=== PATIENT | female | born 1940 | race Caucasian/White ===

== ENCOUNTER → 2017-02-19 | Outpatient (CLI) | payer SELFPAY ==
[2017-02-19 13:52] LABS: EKG EKG PERFORMED
[2017-02-19 14:40] LABS: CH 33.8; HCT 42.5 % (34.0-46.0); HDW 2.84; HGB 15.9 gm/dL (11.4-16.0); Hyperchromasia Slight; MCH 33.4 pg (25.0-35.0); MCHC 37.4 g/dL (31.0-37.0); MCV 89.3 fL (80.0-100.0); Mean Platelet Volume 7.1; RBC 4.76 m/uL (3.80-5.40); RDW 12.9 % (11.5-15.5); WBC 11.1 k/uL (3.8-10.6)
[2017-02-19 14:46] LABS: Partial Thromboplastin Time 23.8 sec (22.0-30.0); Prothrombin Time 10.4 sec (9.0-12.0)
[2017-02-19 14:56] LABS: ALT 29 U/L (9-52); AST 19 U/L (14-36); Alkaline Phosphatase 97 U/L (38-126); Anion Gap 10 mmol/L; Blood Urea Nitrogen 18 mg/dL (7-17); Calcium 9.6 mg/dL (8.4-10.2); Carbon Dioxide 33 mmol/L (22-30); Chloride 98 mmol/L (98-107); Glucose 106 mg/dL (74-99); Non-African American GFR(MDRD) 51 (>60 ml/min/1.73 sqM); Potassium 3.3 mmol/L (3.5-5.1); Sodium 141 mmol/L (137-145); Total Bilirubin 0.8 mg/dL (0.2-1.3); Total Protein 6.7 g/dL (6.3-8.2)
== END | disposition home or self-care (01) ==
LOC: LABPAT 13:43
PROVIDERS: ATTEND Orthopaedic Surgery
DX: Z01.810 Encounter for preprocedural cardiovascular examination (principal); Z01.812 Encounter for preprocedural laboratory examination
CPT/HCPCS: 80053; 85027; 85610; 85730; 87070; 93005

== ENCOUNTER → 2017-02-24 | Outpatient (CLI) | payer SELFPAY ==
[2017-02-24 12:08] LABS: Appearance,Urine Clear (Clear); Bilirubin,Urine Negative (Negative); Glucose,Urine (UA) Negative (Negative); Ketones,Urine Negative (Negative); Leukocyte Esterase,Urine Negative (Negative); Nitrite,Urine Negative (Negative); PH, Urine 6.5 (5.0-8.0); Protein,Urine Negative (Negative); Specific Gravity,Urine 1.019 (1.001-1.035); UA Billing (MACRO vs. MICRO) CHEM
== END ==
LOC: LABPAT 11:47
PROVIDERS: ATTEND Orthopaedic Surgery
DX: Z01.812 Encounter for preprocedural laboratory examination (principal)
CPT/HCPCS: 81003

== ENCOUNTER 2017-03-09 05:42 | Inpatient (IN) | payer MEDICARE, OTHER ==
[2017-02-26 15:03] VITALS: BMI 31.3
[~2017-03-09 05:42] MED LIST: DEXAMETHASONE SOD PHOSPHATE 10 MG/ML 1 ML VIAL IV ONE; HYDROmorphone 1 MG/ML 1 ML SYRINGE IVP PRN; LACTATED RINGERS 1,000 ML IV SCH; ONDANSETRON 4 MG/2 ML VIAL IVP ONE; ceFAZolin 2 GM in SODIUM CHLORIDE 0.9% 100 ML IVPB ONE
[2017-03-09] MEDS ORDERED: LIDOCAINE 1% 20 ML VIAL (10MG/ML) FOR IV START INTRADERMA ONE (06:59)
[2017-03-09] MEDS ORDERED: fentaNYL (PF) 50 MCG/ML 2 ML AMP ONE (07:09)
[2017-03-09] MEDS ORDERED: MIDAZOLAM 2 MG/2 ML VIAL ONE (07:09)
[2017-03-09] MEDS ORDERED: PROPOFOL 10 MG/ML 20 ML VIAL IV ONE (07:09)
[2017-03-09] MEDS ORDERED: ceFAZolin 3,000 MG in SODIUM CHLORIDE 0.9% IRRIGATIO 3,000 ML IRRIGATION ONE (08:17)
[2017-03-09] MEDS ORDERED: LACTATED RINGERS 1,000 ML IV ONE (08:26)
[2017-03-09] MEDS ORDERED: hydrOXYzine PAMOATE 25 MG CAP PO PRN (09:13)
[2017-03-09] MEDS ORDERED: ONDANSETRON 4 MG/2 ML VIAL IVP PRN (09:13)
[2017-03-09] MEDS ORDERED: NA PHOS,M-B/NA PHOS,DI-BA 133 ML ENEMA RECTAL PRN (09:13)
[2017-03-09] MEDS ORDERED: HYDROmorphone 1 MG/ML 1 ML SYRINGE IVP PRN ×2 (09:13)
[2017-03-09] MEDS ORDERED: BISACODYL 10 MG SUPP RECTAL PRN (09:13)
[2017-03-09] MEDS ORDERED: NALOXONE 0.4 MG/ML 1 ML VIAL IV PRN (09:13)
[2017-03-09] MEDS ORDERED: ACETAMINOPHEN TAB 325 MG TAB PO PRN (09:13)
[2017-03-09] MEDS ORDERED: HYDROcodone/APAP 5-325MG 1 EACH TAB PO PRN (09:13)
[2017-03-09] MEDS ORDERED: MAGNESIUM HYDROXIDE 2,400 MG/10 ML CUP PO PRN (09:13)
--- NOTE | 2017-03-09 10:03 | XR ---
EXAMINATION TYPE: XR knee limited RT DATE OF EXAM: 03/09/2017 CLINICAL HISTORY: Right knee pain and arthritis status post total knee replacement. TECHNIQUE: Portable AP and crosstable lateral views of the right knee are obtained immediately posto peratively. COMPARISON: None FINDINGS: Metallic hardware from total right knee arthroplasty is seen and appears satisfactory in a lignment and position. There is evidence of recent surgery with diffuse subcutaneous gas and soft ti ssue swelling noted. Incidental note is made of some vascular calcification in the posterior soft tis bela. IMPRESSION: METALLIC HARDWARE FROM TOTAL RIGHT KNEE ARTHROPLASTY IS SATISFACTORY IN ALIGNMENT.
[2017-03-09] MEDS: LACTATED RINGERS 1,000 ML IV SCH ×2 (10:11→20:32)
[2017-03-09] MEDS: HYDROmorphone 1 MG/ML 1 ML SYRINGE IVP PRN ×2 (10:34→17:06)
[2017-03-09] MEDS ORDERED: IPRATROPIUM-ALBUTEROL 3 ML NEB INHALATION PRN (12:22)
[2017-03-09] MEDS: HYDROcodone/APAP 5-325MG 1 EACH TAB PO PRN (13:38)
[2017-03-09] MEDS: VERAPAMIL SR 120 MG TABLET.ER PO SCH ×2 (13:38→21:53)
[2017-03-09] MEDS: buPROPion SR 150 MG TABLET.ER PO SCH (13:39)
[2017-03-09] MEDS: GABAPENTIN 100 MG CAP PO SCH ×2 (13:39→21:53)
[2017-03-09] MEDS: IPRATROPIUM-ALBUTEROL 3 ML NEB INHALATION SCH ×3 (16:17→23:38)
[2017-03-09] MEDS: ceFAZolin 2 GM in SODIUM CHLORIDE 0.9% 100 ML IVPB SCH ×2 (17:06→23:53)
[2017-03-09] MEDS: NICOTINE 14MG/24HR PATCH TRANSDERM SCH (17:14)
[2017-03-09] MEDS ORDERED: ALBUTEROL NEBULIZED 2.5 MG/3 ML INHALATION PRN (17:52)
[2017-03-09] MEDS ORDERED: WARFARIN 5 MG TAB PO ONE (18:00)
--- NOTE | 2017-03-09 18:01 | P.CONS ---
History of Present Illness - Reason for Consult Consult date: 03/09/17 Medical management Requesting physician: Milton Pacheco - Chief Complaint Right knee surgery - History of Present Illness Consultation: This is a 76-year-old patient of Dr. Walter. Has undergone a right total knee arthroplasty. Some pain is present. Chronic stable medical conditions include hypertension, hyperlipidemia, obstructive sleep apnea uses CPAP machine, and COPD. No nausea vomiting. No chest pain or shortness of breath currently. GEN.: None EYES: None HEENT: None NECK: None RESPIRATORY: Occasional wheezing CARDIOVASCULAR: None GASTROINTESTINAL: Occasional urinary stress incontinence GENITOURINARY: None MUSCULOSKELETAL: Pain in the joints LYMPHATICS: None HEMATOLOGICAL: None PSYCHIATRY: None NEUROLOGICAL: None Past medical history: Hypertension, hyperlipidemia, osteoarthritis, obstructive sleep apnea, breast cancer, COPD, didn't urinary stress incontinence Past surgical history: Left breast lumpectomy including breast cancer treated with chemoradiation, had bilateral mastectomy, a distal surgery for twisted bowel at age 3 months Social history: Smokes a pack a day for over 39 years, alcohol none, lives by himself Family history: 3 sisters had breast cancer, one sister had ovarian cancer VITAL SIGNS: Afebrile, 52, 16, 154/76, 93% GENERAL: Average built BMI 31.3, sitting up, comfortable. EYES: Pupils equal. Conjunctiva normal. HEENT: External appearance of nose and ears normal, oral cavity grossly normal. NECK: JVD not raised; masses not palpable. HEART: First and second heart sounds are normal; no edema. LUNGS: Respiratory rate increased; decreased breath sounds, expiratory wheezing. ABDOMEN: Soft, nontender, liver spleen not palpable, no masses palpable. LYMPHATICS: No lymph nodes palpable in the axilla and neck. PSYCH: Alert and oriented x3; mood and affect normal. NEUROLOGICAL: Cranial nerves grossly intact; no facial asymmetry, power and sensation grossly intact. MUSCULAR skeletal: The same of the right knee, evidence of OA in the hands Investigations Potassium 3.4 Assessment: -Right total knee arthroplasty -Hyperlipidemia -Hyperlipidemia -Essential hypertension -Primary osteoarthritis multiple joints -Obstructive sleep apnea uses CPAP machine -History of breast cancer -Chronic urinary stress incontinence -COPD in a current smoker -Chronic nicotine dependence patient is single smoker Plan: Home medications be resumed. We'll begin a nicotine patch. Patient oriented bronchitis. Patient advised against smoking. Care was discussed with the patient. Negative Dr. Pacheco Past Medical History Past Medical History: Cancer, Hyperlipidemia, Hypertension, Osteoarthritis (OA) , Sleep Apnea/CPAP/BIPAP Additional Past Medical History / Comment(s): breast ca x2 left breast, first time approx 1996, had chemo radiation, current freddie mastectomy no implant on left History of Any Multi-Drug Resistant Organisms: None Reported Past Surgical History: Breast Surgery Additional Past Surgical History / Comment(s): left breast lumpectomy 1996, had chemo and radiation, repeat breast ca left, had freddie mastectomy with reconstruction, had infection left breast and now does not have reconstruction on left. 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" Past Anesthesia/Blood Transfusion Reactions: No Reported Reaction Past Psychological History: Depression Smoking Status: Current every day smoker Past Alcohol Use History: None Reported Additional Past Alcohol Use History / Comment(s): smokes 1ppd fromage 37 (1977) Past Drug Use History: None Reported - Past Family History Sister(s) Family Medical History: Cancer Additional Family Medical History / Comment(s): 3 sisters had breast ca, one sister had ovarian ca Medications and Allergies Home Medications Medication Instructions Recorded Confirmed Type Atenolol/Chlorthalidone 1 tab PO HS 02/26/17 03/09/17 History [Atenolol-Chlorthalidone 50-25] Atorvastatin [Lipitor] 20 mg PO HS 02/26/17 03/09/17 History Gabapentin [Neurontin] 100 mg PO TID 02/26/17 03/09/17 History Glucosam/Jamil-Msm1/C/Fran/Bosw 1 tab PO HS 02/26/17 03/09/17 History [Glucosamine-Chondroitin Tablet] Albuterol Inhaler [Ventolin Hfa 2 puff INHALATION RT-Q6H PRN 03/09/17 03/09/17 History Inhaler] Albuterol Nebulized [Ventolin 2.5 mg INHALATION RT-BID PRN 03/09/17 03/09/17 History Nebulized] Cholecalciferol [Vitamin D3] 3,000 unit PO HS 03/09/17 03/09/17 History Fluticasone/Salmeterol [Advair 1 inhalation PO RT-HS 03/09/17 03/09/17 History 250-50 Diskus] Multivitamins, Thera [Multivitamin 1 tab PO HS 03/09/17 03/09/17 History (formulary)] Tiotropium [place] [Spiriva] 1 cap INHALATION RT-HS 03/09/17 03/09/17 History Verapamil HCl 120 mg PO BID 03/09/17 03/09/17 History Vitamin B Complex 1 cap PO HS 03/09/17 03/09/17 History buPROPion SR [Wellbutrin Sr] 150 mg PO DAILY 03/09/17 03/09/17 History Allergies Allergy/AdvReac Type Severity Reaction Status Date / Time No Known Allergies Allergy Verified 03/09/17 06:28 Results CBC & Chem 7: 03/09/17 06:45 Labs: Abnormal Lab Results - Last 24 Hours (Table) 03/09/17 Range/Units 06:45 Potassium 3.4 L (3.5-5.1) mmol/L
--- NOTE | 2017-03-09 19:14 | XR ---
EXAMINATION TYPE: XR chest 2V DATE OF EXAM: 03/09/2017 COMPARISON: 07/08/2009 HISTORY: Current rehabilitation. Chest pain. TECHNIQUE: Frontal and lateral views of the chest are obtained. FINDINGS: There is no focal air space opacity, pleural effusion, or pneumothorax seen. The cardiac silhouette size is mildly enlarged. The osseous structures are intact. IMPRESSION: No acute cardiopulmonary process.
[2017-03-09] MEDS: SYMBICORT 80-4.5 MCG INHALER INHALATION SCH (19:58)
[2017-03-09] MEDS ORDERED: TIOTROPIUM 18 MCG/PUFF INHALER INHALATION SCH (20:00)
[2017-03-09] MEDS ORDERED: TEMAZEPAM 15 MG CAP PO PRN (21:00)
[2017-03-09] MEDS: ATENOLOL 50 MG TAB PO SCH (21:52)
[2017-03-09] MEDS: CHOLECALCIFEROL 1,000 UNIT TAB PO SCH (21:52)
[2017-03-09] MEDS: CHLORTHALIDONE 25 MG TAB PO SCH (21:52)
[2017-03-09] MEDS: ATORVASTATIN 20 MG TAB PO SCH (21:52)
[2017-03-09] MEDS: SENNOSIDES-DOCUSATE SODIUM 1 EACH TAB PO SCH (21:53)
[2017-03-10] MEDS: IPRATROPIUM-ALBUTEROL 3 ML NEB INHALATION SCH ×6 (01:43→23:48)
[2017-03-10] MEDS: LACTATED RINGERS 1,000 ML IV SCH ×2 (05:55→18:55)
[2017-03-10] MEDS: HYDROcodone/APAP 5-325MG 1 EACH TAB PO PRN ×2 (05:58→18:50)
[2017-03-10 07:33] LABS: INR 1.7 (<1.2); Prothrombin Time 16.4 sec (9.0-12.0)
[2017-03-10] MEDS ORDERED: HYDROcodone/APAP 7.5-325MG 1 EACH TAB PO PRN (07:43)
[2017-03-10 07:44] LABS: Basophils % (A) 0 %; CH 33.7; CHCM 37.9; Eosinophils % (A) 0 %; HCT 39.8 % (34.0-46.0); HDW 2.88; HGB 14.5 gm/dL (11.4-16.0); Hyperchromasia Slight; Luc # (Auto) 0.13; Luc % (Auto) 1; Lymphocytes # (A) 1.8 k/uL (1.0-4.8); Lymphocytes % (A) 12 %; MCH 32.5 pg (25.0-35.0); MCHC 36.5 g/dL (31.0-37.0); MCV 89.2 fL (80.0-100.0); Mean Platelet Volume 7.3; Monocytes # (A) 1.3 k/uL (0-1.0); Monocytes % (A) 8 %; Neutrophils # (A) 11.9 k/uL (1.3-7.7); Neutrophils % (A) 78 %; RBC 4.46 m/uL (3.80-5.40); RDW 12.8 % (11.5-15.5); WBC 15.2 k/uL (3.8-10.6); WBC (Perox) 15.67
--- NOTE | 2017-03-10 08:13 | P.PN ---
Subjective Principal diagnosis: Primary osteoarthritis right knee. Status post Total right knee arthroplasty This is a 76-year-old female who is status post total right knee arthroplasty. She is stable from an orthopedic standpoint. She is having some pain control issues this morning. Objective - Vital Signs Vital signs: Vital Signs Temp 97.6 F 03/10/17 02:04 Pulse 81 03/10/17 02:04 Resp 16 03/10/17 02:04 BP 129/87 03/10/17 02:04 Pulse Ox 92 L 03/10/17 02:04 Intake & Output 03/09/17 03/10/17 03/10/17 18:59 06:59 18:59 Intake Total 2390 1900 Output Total 150 2525 Balance 2240 -625 Intake: IV 1550 Intake, IV Titration 1100 Amount Lactated Ringers 1,000 ml 1100 @ 100 mls/hr IV .Q10H CABRERA Rx#:[id number] Oral 840 800 Output: Urine 100 2525 Estimated Blood Loss 50 Other: Voiding Method Indwelling Catheter Indwelling Catheter - Exam Role female in no acute distress. She is alert and oriented 3. Exam of the right knee reveals that her dressing is clean, dry and intact. She has full foot and ankle motion without difficulty or pain. Neurovascular status to the lower extremity is intact. - Labs CBC & Chem 7: 03/10/17 06:37 03/09/17 06:45 Labs: Abnormal Lab Results - Last 24 Hours (Table) 03/10/17 03/10/17 Range/Units 06:37 06:37 WBC 15.2 H (3.8-10.6) k/uL Neutrophils # 11.9 H (1.3-7.7) k/uL Monocytes # 1.3 H (0-1.0) k/uL PT 16.4 H (9.0-12.0) sec INR 1.7 H (<1.2) Assessment and Plan (1) Primary localized osteoarthritis of right knee Status: Acute (2) Status post total right knee replacement Status: Acute Plan: The clinical findings are discussed with the patient. She is to continue with physical therapy and CPM as directed. We're planning discharge to inpatient rehab.
[2017-03-10] MEDS: NICOTINE 14MG/24HR PATCH TRANSDERM SCH (09:02)
[2017-03-10] MEDS: VERAPAMIL SR 120 MG TABLET.ER PO SCH ×2 (09:02→20:21)
[2017-03-10] MEDS: GABAPENTIN 100 MG CAP PO SCH ×3 (09:05→20:21)
[2017-03-10] MEDS: MELOXICAM 7.5 MG TAB PO SCH (09:05)
[2017-03-10] MEDS: buPROPion SR 150 MG TABLET.ER PO SCH (09:06)
[2017-03-10] MEDS ORDERED: WARFARIN 5 MG TAB PO ONE (18:00)
[2017-03-10] MEDS: SYMBICORT 80-4.5 MCG INHALER INHALATION SCH (20:14)
[2017-03-10] MEDS: SENNOSIDES-DOCUSATE SODIUM 1 EACH TAB PO SCH (20:21)
[2017-03-10] MEDS: ATORVASTATIN 20 MG TAB PO SCH (20:21)
[2017-03-10] MEDS: CHOLECALCIFEROL 1,000 UNIT TAB PO SCH (20:21)
[2017-03-10] MEDS: ATENOLOL 50 MG TAB PO SCH (20:21)
[2017-03-10] MEDS: CHLORTHALIDONE 25 MG TAB PO SCH (20:21)
--- NOTE | 2017-03-11 01:15 | P.PN ---
<Saundra Sahu - Last Filed: 03/11/17 01:06> Progress Note - Text DATE OF SERVICE: 03/10/2017 PRESENTING COMPLAINT: Right knee pain INTERVAL HISTORY: 76-year-old patient status post right total knee arthroplasty. 03/10/2017: Has some pain today although patient says it's better today. Pain medications appear to working well. Agreeable to work with physical therapy. Tolerating her diet. No BM since day of admission REVIEW OF SYSTEMS: Done for constitutional ,cardiovascular, GI, pulmonary with relevant findings as above. CURRENT MEDICATIONS [place], DuoNeb, Tenormin, Lipitor, Wellbutrin, [place], Neurontin, temazepam. PHYSICAL EXAM VITAL SIGNS: Temperature 98.3, pulse is 55, respiratory rate 17, blood pressure 115/60, oxygen saturation 92% on room air. GENERAL APPEARANCE: . Lying in bed, not in distress. EYES: Pupils equal. Conjunctiva normal. NECK: JVD not raised. Mass not palpable. RESPIRATORY: Respiratory effort normal. Lungs clear to auscultation. CARDIOVASCULAR: First and second sounds normal. No edema. ABDOMEN: Soft. Liver and spleen not palpable. No tenderness. No mass palpable. PSYCHIATRY: Alert and oriented x3. Mood and affect normal. NEUROLOGICAL: Cranial nerves grossly intact. No facial asymmetry. Power and sensation grossly intact MUSCULOSKELETAL: Right knee dressing intact some swelling noted to the extremity. Plantar and dorsiflexion intact on the right foot INVESTIGATIONS: White blood cell count 15.2 PT 16.4, INR 1.7. Potassium 3.4. ASSESSMENT: -Right total knee arthroplasty -Leukocytosis as acute phase reactant secondary to surgery. -Hyperlipidemia -Hyperlipidemia -Essential hypertension -Primary osteoarthritis multiple joints -Obstructive sleep apnea uses CPAP machine -History of breast cancer -Chronic urinary stress incontinence -COPD in a current smoker -Chronic nicotine dependence patient is single smoker PLAN: Continue medication and treatment plan. We'll add stool softeners to ensure patient has a BM prior to discharge. Plan of care discussed with the patient and family at length And they are in agreement. We'll continue to monitor closely SHOE REPAIR COBBLER statement: Patient was seen and examined by nurse practitioner Saundra Sahu and all elements of the case discussed with attending Dr. Rojas <Junaid Rojas - Last Filed: 03/14/17 13:32> Progress Note - Text Attending note. Date of service-03/10/2017 This patient was seen and examined by me . I reviewed the note of my nurse practitioner, Ms. Sahu. Discussed with her, additional findings as below. Doing better. Pain control. Breathing stable. No chest pain. Did tolerate his diet. On examination: Lungs-clear to auscultation, cardiovascular first seconds are normal. Surgical site clean as per surgery Investigations: White count 15.2 Assessment and plan: Right total knee arthroplasty./Leukocytosis reactive to surgery. No evidence of infection. Care discussed with the patient
[2017-03-11] MEDS ORDERED: LACTULOSE 20 GM/30 ML CUP PO ONE (01:36)
[2017-03-11] MEDS: IPRATROPIUM-ALBUTEROL 3 ML NEB INHALATION SCH ×5 (03:41→20:12)
[2017-03-11] MEDS: LACTATED RINGERS 1,000 ML IV SCH ×3 (04:17→21:13)
[2017-03-11] MEDS: HYDROcodone/APAP 7.5-325MG 1 EACH TAB PO PRN ×3 (04:27→16:48)
[2017-03-11 07:19] LABS: INR 2.4 (<1.2); Prothrombin Time 22.9 sec (9.0-12.0)
--- NOTE | 2017-03-11 08:46 | P.PN ---
Subjective Principal diagnosis: Primary osteoarthritis right knee. Status post Total right knee arthroplasty This is a 76-year-old female who is status post total right knee arthroplasty. She is stable from an orthopedic standpoint. Her pain is better controlled today. Objective - Vital Signs Vital signs: Vital Signs Temp 97.8 F 03/11/17 07:42 Pulse 79 03/11/17 07:42 Resp 17 03/11/17 07:42 BP 119/66 03/11/17 07:42 Pulse Ox 94 L 03/11/17 07:42 Intake & Output 03/10/17 03/11/17 03/11/17 18:59 06:59 18:59 Intake Total 720 500 Output Total 300 875 Balance 420 -375 Weight 90.718 kg Intake: Oral 720 500 Output: Urine 300 875 Uretheral ([place]) 300 Other: Voiding Method Indwelling Catheter # Voids 3 1 - Exam Role female in no acute distress. She is alert and oriented 3. Exam of the right knee reveals that her dressing is clean, dry and intact. Incision looks good. There is no erythema or ecchymosis. There is no active drainage. Dermabond glue is intact. She has full foot and ankle motion without difficulty or pain. Neurovascular status to the lower extremity is intact. - Labs CBC & Chem 7: 03/10/17 06:37 03/09/17 06:45 Labs: Abnormal Lab Results - Last 24 Hours (Table) 03/11/17 Range/Units 06:40 PT 22.9 H (9.0-12.0) sec INR 2.4 H (<1.2) Assessment and Plan (1) Primary localized osteoarthritis of right knee Status: Acute (2) Status post total right knee replacement Status: Acute Plan: The clinical findings are discussed with the patient. She is to continue with physical therapy and CPM as directed. We're planning discharge to inpatient rehab tomorrow.
[2017-03-11] MEDS: NICOTINE 14MG/24HR PATCH TRANSDERM SCH (08:49)
[2017-03-11] MEDS: MELOXICAM 7.5 MG TAB PO SCH (08:50)
[2017-03-11] MEDS: GABAPENTIN 100 MG CAP PO SCH ×3 (08:50→21:06)
[2017-03-11] MEDS: VERAPAMIL SR 120 MG TABLET.ER PO SCH ×2 (08:50→21:05)
[2017-03-11] MEDS: buPROPion SR 150 MG TABLET.ER PO SCH (08:50)
[2017-03-11 14:09] VITALS: RESP 16
[2017-03-11] MEDS ORDERED: WARFARIN 2.5 MG TAB PO ONE (18:00)
[2017-03-11] MEDS: SYMBICORT 80-4.5 MCG INHALER INHALATION SCH (20:24)
[2017-03-11] MEDS: ATORVASTATIN 20 MG TAB PO SCH (21:04)
[2017-03-11] MEDS: CHLORTHALIDONE 25 MG TAB PO SCH (21:05)
[2017-03-11] MEDS: CHOLECALCIFEROL 1,000 UNIT TAB PO SCH (21:05)
[2017-03-11] MEDS: SENNOSIDES-DOCUSATE SODIUM 1 EACH TAB PO SCH (21:09)
[2017-03-11] MEDS: ATENOLOL 50 MG TAB PO SCH (21:09)
[2017-03-11] MEDS: HYDROcodone/APAP 5-325MG 1 EACH TAB PO PRN (22:12)
[2017-03-12] MEDS: IPRATROPIUM-ALBUTEROL 3 ML NEB INHALATION SCH ×4 (00:57→11:49)
[2017-03-12] MEDS: HYDROcodone/APAP 5-325MG 1 EACH TAB PO PRN (04:48)
[2017-03-12 07:10] LABS: INR 3.1 (<1.2); Prothrombin Time 29.9 sec (9.0-12.0)
[2017-03-12 07:20] LABS: Basophils # (A) 0.1 k/uL (0-0.2); Basophils % (A) 1 %; CH 33.9; CHCM 38.4; Eosinophils # (A) 0.5 k/uL (0-0.7); Eosinophils % (A) 5 %; HGB 13.5 gm/dL (11.4-16.0); Hyperchromasia Slight; Luc # (Auto) 0.18; Luc % (Auto) 2; Lymphocytes # (A) 2.3 k/uL (1.0-4.8); Lymphocytes % (A) 23 %; MCH 32.4 pg (25.0-35.0); MCHC 36.5 g/dL (31.0-37.0); MCV 88.7 fL (80.0-100.0); Mean Platelet Volume 7.3; Monocytes # (A) 0.9 k/uL (0-1.0); Monocytes % (A) 9 %; Neutrophils # (A) 6.4 k/uL (1.3-7.7); Neutrophils % (A) 62 %; RBC 4.17 m/uL (3.80-5.40); WBC 10.3 k/uL (3.8-10.6); WBC (Perox) 10.76
--- NOTE | 2017-03-12 07:57 | PN ---
DATE OF SERVICE: 03/11/2017 PRESENTING COMPLAINT: Right knee surgery. INTERVAL HISTORY: Patient is status post right knee surgery, doing well. Pain is controlled. No nausea, vomiting. No chest pain. Did tolerate a diet. Did well with physical therapy. Review of systems done for constitutional, cardiovascular, GI, pulmonary; relevant findings as above. Current medications are reviewed. On examination, temperature 97.8, pulse 79, respirations 17, blood pressure 119/ 66, pulse ox 94% on 3-L. GENERAL APPEARANCE: Sitting up, comfortable. EYES: Pupils equal, conjunctivae normal. NECK: JVD not raised. Mass not palpable. RESPIRATORY: Effort normal. LUNGS: Clear. CARDIOVASCULAR: First and second sounds are normal. No edema. ABDOMEN: Soft, nontender. Liver and spleen not palpable. PSYCHIATRIC: Alert, oriented x3. Mood and affect normal. INVESTIGATIONS: White count 15.2, hemoglobin 14.5. ASSESSMENT: 1. Right total knee arthroplasty. 2. Hyperlipidemia. 3. Essential hypertension. 4. Primary osteoarthritis of multiple joints. 5. Obstructive sleep apnea uses CPAP machine. 6. History of breast cancer. 7. Chronic urinary stress incontinence. 8. Chronic obstructive pulmonary disease in a current smoker. 9. Chronic nicotine dependence. Patient is a smoker. PLAN: Care was discussed with the patient. Patient will get enema as she has not had bowel movement for a good 4 or 5 days. MTDD
--- NOTE | 2017-03-12 07:59 | P.DS ---
Providers Date of admission: 03/09/17 05:42 Expected date of discharge: 03/12/17 Attending physician: Milton Pacheco Consults: 03/09/17 09:13 Consult Physician Routine Consulting Provider: Junaid Rojas Consult Reason/Comments: medical management Do you want consulting provider notified?: Yes Primary care physician: Viktor Walter - Discharge Diagnosis(es) (1) Primary localized osteoarthritis of right knee Current Visit: Yes Status: Acute (2) Status post total right knee replacement Current Visit: Yes Status: Acute Hospital Course: This is a 76-year-old female with known history of degenerative arthritis of the right knee. The patient presents for evaluation. After discussion and consideration patient elects to proceed with total knee arthroplasty. The patient is seen preoperatively by Dr. Pacheco and cleared for surgery. Patient is admitted to [facility] on 03/09/2017 for total knee arthroplasty. The procedures performed without complication or sequelae. The patient is doing well postoperatively. Labs and vital signs are stable on day of discharge. On day of discharge patient's knee incision is healing well. There is minimal erythema. There is no drainage noted at this time. There is minimal soft tissue swelling to the knee. Patient has full foot and ankle motion without difficulty or pain. Neurovascular status to the right lower extremity is intact. Patient is discharged to rehab in good condition. Please see med rec for accurate list of home medications. Plan - Discharge Summary New Discharge Prescriptions: New Aspirin 325 mg PO BID #60 tab HYDROcodone/APAP 7.5-325MG [[place] 7.5-325] 1 - 2 tab PO Q4-6H PRN #90 tab PRN Reason: Pain Sennosides-Docusate Sodium [Senokot-S] 1 tab PO BID #60 tablet Warfarin [Coumadin] 2.5 mg PO Q2D #1 tab No Action Atorvastatin [Lipitor] 20 mg PO HS Glucosam/Jamil-Msm1/C/Fran/Bosw [Glucosamine-Chondroitin Tablet] 1 tab PO HS Gabapentin [Neurontin] 100 mg PO TID Atenolol/Chlorthalidone [Atenolol-Chlorthalidone 50-25] 1 tab PO HS buPROPion SR [Wellbutrin Sr] 150 mg PO DAILY Vitamin B Complex 1 cap PO HS Fluticasone/Salmeterol [Advair 250-50 Diskus] 1 inhalation PO RT-HS Albuterol Inhaler [Ventolin Hfa Inhaler] 2 puff INHALATION RT-Q6H PRN PRN Reason: Shortness Of Breath Tiotropium [place] [Spiriva] 1 cap INHALATION RT-HS Multivitamins, Thera [Multivitamin (formulary)] 1 tab PO HS Cholecalciferol [Vitamin D3] 3,000 unit PO HS Verapamil HCl 120 mg PO BID Albuterol Nebulized [Ventolin Nebulized] 2.5 mg INHALATION RT-BID PRN PRN Reason: Shortness Of Breath Discharge Medication List Atenolol/Chlorthalidone [Atenolol-Chlorthalidone 50-25] 1 tab PO HS 02/26/17 [ History] Atorvastatin [Lipitor] 20 mg PO HS 02/26/17 [History] Gabapentin [Neurontin] 100 mg PO TID 02/26/17 [History] Glucosam/Jamil-Msm1/C/Fran/Bosw [Glucosamine-Chondroitin Tablet] 1 tab PO HS [History] Albuterol Inhaler [Ventolin Hfa Inhaler] 2 puff INHALATION RT-Q6H PRN 03/09/17 [ History] Albuterol Nebulized [Ventolin Nebulized] 2.5 mg INHALATION RT-BID PRN 03/09/17 [ History] Cholecalciferol [Vitamin D3] 3,000 unit PO HS 03/09/17 [History] Fluticasone/Salmeterol [Advair 250-50 Diskus] 1 inhalation PO RT-HS 03/09/17 [ History] Multivitamins, Thera [Multivitamin (formulary)] 1 tab PO HS 03/09/17 [History] Tiotropium [place] [Spiriva] 1 cap INHALATION RT-HS 03/09/17 [History] Verapamil HCl 120 mg PO BID 03/09/17 [History] Vitamin B Complex 1 cap PO HS 03/09/17 [History] buPROPion SR [Wellbutrin Sr] 150 mg PO DAILY 03/09/17 [History] Aspirin 325 mg PO BID #60 tab 03/11/17 [Rx] HYDROcodone/APAP 7.5-325MG [[place] 7.5-325] 1 - 2 tab PO Q4-6H PRN #90 tab [Rx] Sennosides-Docusate Sodium [Senokot-S] 1 tab PO BID #60 tablet 03/11/17 [Rx] Warfarin [Coumadin] 2.5 mg PO Q2D #1 tab 03/11/17 [Rx] Follow up Appointment(s)/Referral(s): Milton Pacheco DO [Doctor of Osteopathic Medicine] - 2 Weeks Ambulatory/Diagnostic Orders: Continuous Passive Motion (CPM) Machine [DME.AMB1] Time Frame: 3 Weeks, Facility : [facility], Location: Case Management Activity/Diet/Wound Care/Special Instructions: A bear weight as tolerated with walker. May shower if no drainage from incision. CPM 5-6 hours daily. Discharge Disposition: TRANSFER TO SNF/ECF
[2017-03-12 08:13] VITALS: BP 112/69; PULSE 67; TEMP 98.1
[2017-03-12] MEDS: GABAPENTIN 100 MG CAP PO SCH (08:13)
[2017-03-12] MEDS: VERAPAMIL SR 120 MG TABLET.ER PO SCH (08:13)
[2017-03-12] MEDS: NICOTINE 14MG/24HR PATCH TRANSDERM SCH (08:14)
[2017-03-12] MEDS: MELOXICAM 7.5 MG TAB PO SCH (08:14)
[2017-03-12] MEDS: buPROPion SR 150 MG TABLET.ER PO SCH (08:14)
[2017-03-12] MEDS: LACTATED RINGERS 1,000 ML IV SCH (10:48)
--- NOTE | 2017-03-14 08:27 | PN ---
DATE OF SERVICE: 03/12/17 PRESENTING COMPLAINT: Right knee surgery. INTERVAL HISTORY: This is patient seen by me yesterday on 03/12/17. Doing well. Pain is controlled. No nausea or vomiting. Looking to go home. Review of systems: Done for constitutional, cardiovascular, GI, pulmonary, relevant findings as above. Current medications are reviewed. On examination, temperature 98.1, pulse 67, respiratory rate 14. Blood pressure 112/69. Pulse ox 94% on room air. General appearance sitting up, comfortable. Eyes: Pupils equal. Conjunctivae normal. Neck: JVD not raised. Mass not palpable. Respiratory effort normal. Lungs are clear. Cardiovascular: First and second sounds normal. No edema. Abdomen soft, nontender. Liver and spleen not palpable. Psychiatry: Alert and oriented times three. Mood and affect normal. Investigations: White count 10.3, hemoglobin 13.5. ASSESSMENT: 1. Right total knee arthroplasty. 2. Hyperlipidemia. 3. Essential hypertension. 4. Primary osteoarthritis of multiple joints. 5. Obstructive sleep apnea, uses CPAP machine. 6. History of breast cancer. 7. Chronic urinary stress incontinence 8. Chronic obstructive pulmonary disease in a current smoker. 9. Chronic nicotine dependence. The patient is a smoker. PLAN: Continue current medications and treatment plan. The patient feeling good. MTDD
--- NOTE | 2017-03-15 18:49 | OP ---
DATE OF SERVICE: 03/09/2017 SURGEON: Milton Pacheco Do MAGAZINE GRINDER LOADER: ASHLEY KWOK PA-C PREOPERATIVE DIAGNOSIS: Degenerative joint disease right knee. POSTOPERATIVE DIAGNOSIS: Degenerative joint disease right knee. PROCEDURE PERFORMED: Right total knee replacement arthroplasty utilizing Gay Persona Press fit component. DESCRIPTION OF PROCEDURE: The patient was taken to the operative suite and placed in supine position. Spinal anesthesia was performed by the department of anesthesiology. Betadine prep was performed from the mid calf. Sterile drapes were applied in the usual manner. A medial parapatellar incision was developed and further sharp dissection through the subcutaneous tissues were noted. Medial retinaculum was incised. The patella was everted and dislocated laterally. The knee was brought in flexion and held in a leg lima. The intramedullary cutting guide and jig was utilized for appropriate cuts in preparation for size 7 femoral component. The size 7 component was selected and appropriate cuts of the femur were developed. The provisionary component was size 7 component was impacted into position. Alignment and stability are noted. Excellent alignment of bone component interface noted. The tibial cutting guide and jig was brought into position and the wafer cut was performed. Wafer was removed and medial and lateral menisci were excised. A size 4 trabecular tray was selected. The tray was marked for position, held and appropriate peg holes were drilled in preparation for the tibial tray. The patella was shaped with a shelving planer. The size 32 mm patellar component was selected in preparation for all final components. The Pulsavac antibiotic solution was utilized in preparing the bone for the final component. Final size 4 trabecular metal three hole peg was placed in predrilled holes and impacted. The final size 7 right femoral component was impacted into position. The final patellar component was placed in peg holes and impacted. The final size 12 mm polyethylene insert was inserted and locked into the tibial tray and locked into position. With the knee in flexion position and pneumatic tourniquet deflated. The knee was irrigated with Pulsavac antibiotic solution. A superficial bleeding was controlled with electrocautery. The retinaculum was approximated with three Vicryl suture in a horizontal mattress fashion. A #2 Quill suture was used in reinforcing medial retinaculum. 2-0 Vicryl suture was utilized for closure of the subcutaneous tissue. 3-0 Quill Vicryl suture was utilized for soft tissue closure. Dermabond was used to seal the wound. Betadine and sterile pressure dressing was applied. The tourniquet was deflated. The patient was transferred to the recovery room in satisfactory postop condition. GROSS PATHOLOGY: There was severe tricompartmental degenerative joint disease of the right knee. NHI
== END 2017-03-12 15:52 | DRG 470 ==
LOC: 2ORMAIN 05:42 → 3SUR 09:07
PROVIDERS: ADMIT Orthopaedic Surgery; ATTEND Orthopaedic Surgery
PROC: 0SRC0JA Replacement of Right Knee Joint with Synthetic Substitute, Uncemented, Open Approach (ICD-10-PCS; principal; 2017-03-09 07:00)
DX: M17.11 Unilateral primary osteoarthritis, right knee (principal); J44.9 Chronic obstructive pulmonary disease, unspecified; I10 Essential (primary) hypertension; E78.5 Hyperlipidemia, unspecified; D72.829 Elevated white blood cell count, unspecified; F17.210 Nicotine dependence, cigarettes, uncomplicated; G47.33 Obstructive sleep apnea (adult) (pediatric); N39.3 Stress incontinence (female) (male); F32.9 Major depressive disorder, single episode, unspecified; I73.9 Peripheral vascular disease, unspecified; M21.161 Varus deformity, not elsewhere classified, right knee; Z79.899 Other long term (current) drug therapy; Z85.3 Personal history of malignant neoplasm of breast; Z82.49 Family history of ischemic heart disease and other diseases of the circulatory system
CPT/HCPCS: 71020; 84132; 85025; 85610; 88305; 88311; 94640; 94760

== ENCOUNTER 2018-11-11 10:36 | Inpatient (IN) | payer MEDICARE, OTHER ==
[~2018-11-11 10:36] MED LIST changes: -DEXAMETHASONE SOD PHOSPHATE 10 MG/ML 1 ML VIAL IV ONE; -HYDROmorphone 1 MG/ML 1 ML SYRINGE IVP PRN; -LACTATED RINGERS 1,000 ML IV SCH; +MIDAZOLAM (PF) 2 MG/2 ML VIAL IV PRN; -ONDANSETRON 4 MG/2 ML VIAL IVP ONE; +Pre Op ABX Message 1 EACH MISC MISCELLANE ONE; -ceFAZolin 2 GM in SODIUM CHLORIDE 0.9% 100 ML IVPB ONE
[2018-11-11] MEDS: LACTATED RINGERS 1,000 ML IV SCH ×5 (11:03→22:35)
[2018-11-11] MEDS ORDERED: LIDOCAINE 1% 20 ML VIAL (10MG/ML) FOR IV START INTRADERMA ONE (11:03)
[2018-11-11] MEDS: DEXAMETHASONE SOD PHOSPHATE 10 MG/ML 1 ML VIAL IV ONE ×2 (11:06→16:02)
[2018-11-11] MEDS: ONDANSETRON 4 MG/2 ML VIAL IVP ONE ×2 (11:06→16:02)
[2018-11-11] MEDS ORDERED: MIDAZOLAM 2 MG/2 ML VIAL IVP ONE (11:44)
[2018-11-11] MEDS ORDERED: fentaNYL (PF) 50 MCG/ML 2 ML AMP IVP ONE (11:44)
[2018-11-11] MEDS ORDERED: PROPOFOL 10 MG/ML 20 ML VIAL IV ONE (12:21)
[2018-11-11] MEDS ORDERED: LABETALOL 5 MG/ML VIAL MDV ONE (12:21)
[2018-11-11] MEDS ORDERED: MIDAZOLAM 2 MG/2 ML VIAL ONE (12:21)
[2018-11-11] MEDS ORDERED: ROCURONIUM BROMIDE 10 MG/ML 10 ML VIAL IV ONE (12:21)
[2018-11-11] MEDS ORDERED: hydrALAZINE HCL 20 MG/ML 1 ML VIAL ONE (12:21)
[2018-11-11] MEDS ORDERED: GLYCOPYRROLATE 0.2 MG/ML 2 ML VIAL ONE (12:21)
[2018-11-11] MEDS ORDERED: LIDOCAINE 1% INJ 10MG/ML (20 ML MDV) ONE (12:21)
[2018-11-11] MEDS ORDERED: NEOSTIGMINE 1 MG/ML 10 ML VIAL ONE (12:21)
[2018-11-11] MEDS ORDERED: KETAMINE 10 MG/ML 20 ML VIAL ONE (12:21)
[2018-11-11] MEDS ORDERED: fentaNYL (PF) 50 MCG/ML 2 ML AMP ONE (12:21)
[2018-11-11] MEDS ORDERED: SUCCINYLCHOLINE CHLORIDE 100 MG/5 ML SYR IV ONE (12:21)
[2018-11-11] MEDS ORDERED: ceFAZolin 1,000 MG VIAL IVPB ONE (12:41)
[2018-11-11] MEDS ORDERED: EPINEPHrine 4 MG in SODIUM CHLORIDE 0.9% IRRIGATIO 3,000 ML IRRIGATION ONE ×6 (13:17→13:19)
[2018-11-11] MEDS ORDERED: HYDROmorphone 0.5 MG/0.5 ML SYRINGE IVP PRN ×3 (13:37)
[2018-11-11] MEDS ORDERED: ONDANSETRON 4 MG/2 ML VIAL IVP PRN (13:37)
[2018-11-11] MEDS ORDERED: HYDROcodone/APAP 5-325MG 1 EACH TAB PO PRN (13:37)
[2018-11-11] MEDS ORDERED: diphenhydrAMINE 25 MG CAP PO PRN (13:37)
[2018-11-11] MEDS ORDERED: hydrOXYzine PAMOATE 25 MG CAP PO PRN (13:37)
[2018-11-11] MEDS ORDERED: SENNOSIDES-DOCUSATE SODIUM 1 EACH TAB PO PRN (13:37)
--- NOTE | 2018-11-11 14:15 | P.OP ---
Date of Procedure: 11/11/18 Procedure(s) Performed: PREOPERATIVE DIAGNOSES: 1. Right shoulder rotator cuff tendinopathy 2. Chronic impingement syndrome. 3. Acromioclavicular osteoarthritis. 4. Labral degenerative tear. POSTOPERATIVE DIAGNOSES: 1. Right shoulder rotator cuff tendinopathy (supraspinatus, infraspinatus and subscapularis) 2. Chronic impingement syndrome. 3. Acromioclavicular osteoarthritis. 4. Labral degenerative tears, complete 5. Severe biceps tendon degeneration 6. Moderate adhesions glenohumeral joint and subacromial space PROCEDURES PERFORMED: 1. Right shoulder arthroscopy with debridement of partial-thickness rotator cuff tears, biceps tenotomy, debridement of bucio-labral tearing, glenoid chondroplasty, subacromial bursectomy 2. Arthroscopic partial distal clavicle excision 3. Arthroscopic lysis of adhesions with manipulation under anesthesia 4. Arthroscopic subacromial decompression ANESTHESIA: General. ESTIMATED BLOOD LOSS: Less than 25 mL TOURNIQUET: None PROMOTIONAL MARKETING AGENT: None COMPLICATIONS: None. DISPOSITION: To postanesthesia care unit INDICATIONS: Mrs. Ennis is a 78 year old female with a history of rotator cuff difficulties. She has multiple medical problems including severe asthma/COPD for which she is on an inhaler and she has severe hypertension. MRI was suspicious for severe rotator cuff impingement, tendinopathy, long head biceps tearing and arthritis of the glenohumeral joint.. I have examined the patient in the office and proposed arthroscopy of the shoulder for debridement, as well as other procedures to optimize the shoulder and outcome, such as decompression of spurs and debridement of loose or degenerated tissue. I have explained the risks of this surgery as being inclusive of, but not limited to: bleeding, infection, scarring, discomfort, blood vessel and/or nerve damage, need for further surgery, stiffness, persistence or worsening of problems, , and other risks. The consent form has been completed and signed. PROCEDURE: Appropriate consent was obtained from the patient. The patient was taken to the operating room and placed in the supine position. General anesthesia was initiated and after confirmation of adequate anesthesia, the patients right shoulder was examined. Initial range of motion showed flexion to 150 , abduction to 150, external rotation to 45, and internal rotation with the arm in abduction to 40. Codman's paradox maneuver was performed and achieved flexion to 170 abduction to 170, external rotation to 70 and internal rotation to 70. The shoulder was stable. Next, the patient was rotated into the lateral decubitus position and stabilized to the table with a butler bag and padded straps. Care was taken to make sure that all pressure points were adequately padded. Bear-hugger was used along with bilateral leg sequential compression devices. Prepping and draping was completed in the usual aseptic fashion using ChloraPrep. The patient received intravenous antibiotics prior to incision. The shoulder was suspended from traction with 15 lbs. of weight in a position of 45 degrees abduction. Landmarks were outlined with a skin marking pen. A spinal needle was inserted into the glenohumeral joint and fluid was administered to distend the joint. Some pressure was noted after 100 mL was administered. A posterior portal was created using an 11 blade and the arthroscopic canula, over a dull trocar, was carefully inserted into the joint. Arthroscopy then commenced. An anterior portal was inserted in the rotator interval area using inside-out technique. Biceps tendon showed severe deterioration. Biceps tenotomy was performed using a shaver. The tendon stump was then allowed to retract into the bicipital groove. Infraspinatus and teres minor attachments were normal. Subscapularis tendon showed a partial tear along the superior rolled border which was addressed with debridement. Hyaline cartilage of the glenoid and humeral head showed degenerative changes typical for age. Supraspinatus attachment after superficial debridement showed a partial-thickness 2-3 mm depth tear on the articular side. This was marked with a spinal needle for inspection on the bursal surface. No loose bodies were noted in the joint. Labrum circumferentially showed moderate degenerative tearing but was well-attached. Negative peel back sign. Loose fibers of labrum in this area were debrided away back to stable labrum. Note was made of grade 4 osteoarthritis of the glenohumeral joint, with severe cartilage deterioration and bone exposure of the humeral head, and high grade 3/grade 4 chondrosis of the glenoid. Thermal modification of the cartilage was performed using the ArthroCare device on a low setting, and appearance was much improved after this procedure. Synovitis with adhesions was noted superior to the superior labrum and within the rotator interval. This was debrided and removed where the capsule appeared inflamed, using an arthroscopic shaver. Attention was then directed to the subacromial space. The camera and instruments were redirected into the subacromial space and bursoscopy was performed. The patients bursa was inflamed and thickened, indicating chronic bursitis. A lateral portal was created using outside-in technique. The supraspinatus tendon was examined particularly closely. No significant perforation was discovered however, there was severe impingement changes to this bursal surface of the cuff. The subacromial bursa contained moderate degenerative appearing adhesions within the superior space, but also the lateral anterior and posterior spaces as well. This degenerative material which consisted of thickened bursal material, was resected using a shaver and where necessary, lysed using the ArthroCare device. Meticulous hemostasis was maintained using the ArthroCare device. The undersurface of the acromion had frictional changes consistent with impingement syndrome. The underside of the acromion anteriorly was cleared of soft tissue using an arthroscopic radiofrequency ablator. The frictional changes of the rotator cuff matched exactly the location of the rotator cuff tendinopathy in the critical zone. A formal subacromial decompression was performed using a sohail. Approximately 5 mm of material was removed from the anterior-inferior corner of the acromion. This resection was beveled upwards laterally, and carried to the AC joint. The AC joint appeared arthritic with inferior spurring. This spurring was removed with a sohail, co-planing the resection with the acromial resection. Subsequently, 4-0 Monocryl was used to close the portal holes. Steri-strips were applied as well as sterile dressing. The shoulder was then placed into a sling and the patient was transferred to recovery room in stable condition. Sponge and needle counts were correct.
[2018-11-11] MEDS: HYDROmorphone 0.5 MG/0.5 ML SYRINGE IVP PRN ×2 (14:53→14:59)
[2018-11-11 16:15] VITALS: BMI 33.0
--- NOTE | 2018-11-11 19:33 | P.ONQ ---
Anesthesiology Proc Note - PNB - Peripheral Nerve Block Performed Right Other (see comment) Single Time Out Performed: Yes Indication: Acute Post-Operative Pain, Dx/Pain Location (Right Shoulder Pain), Requested by physician Sedation Type: Sedate with meaningful contact maintained Preparation: Sterile Prep Position: Sitting Catheter: None Needle Types: On-Q Needle Size: 100mm (4") Needle Gauge: 21 Technique: Ultrasound Injectate: 0.5% Ropivacaine (see comment for volume) Blood Aspirated: No Pain Paresthesia on Injection Noted: No Resistance on Injection: Normal Events: Other (see comment) (SUPRASCAPULAR NERVE BLOCK)
[2018-11-11] MEDS ORDERED: DICLOFENAC SODIUM GEL 100 GM TUBE TOPICAL PRN (20:15)
[2018-11-11] MEDS ORDERED: IPRATROPIUM 0.5 MG/2.5 ML NEBU INHALATION PRN (20:15)
[2018-11-11] MEDS ORDERED: ALBUTEROL NEBULIZED 2.5 MG/3 ML INHALATION PRN (20:15)
[2018-11-11] MEDS ORDERED: buPROPion SR 150 MG TABLET.ER PO SCH (21:00)
[2018-11-11] MEDS ORDERED: VERAPAMIL SR 120 MG TABLET.ER PO SCH (21:00)
[2018-11-11] MEDS: CHLORTHALIDONE 25 MG TAB PO SCH (21:02)
[2018-11-11] MEDS: ATENOLOL 50 MG TAB PO SCH (21:02)
[2018-11-11] MEDS: MULTIVITAMINS, THERA 1 EACH TAB PO SCH (21:02)
[2018-11-11] MEDS: CHOLECALCIFEROL 1,000 UNIT TAB PO SCH (21:02)
[2018-11-11] MEDS: [UNRECOGNIZED DRUG - OTHER] PO SCH (21:02)
[2018-11-11] MEDS: DULoxetine HCL 30 MG CAPSULE.DR PO SCH (21:02)
[2018-11-11] MEDS: ATORVASTATIN 20 MG TAB PO SCH (21:02)
[2018-11-11] MEDS: VERAPAMIL 40 MG TAB PO SCH (21:04)
[2018-11-11] MEDS: HYDROcodone/APAP 5-325MG 1 EACH TAB PO PRN (21:06)
[2018-11-11] MEDS: ALBUTEROL NEBULIZED 2.5 MG/3 ML INHALATION PRN (21:30)
[2018-11-12] MEDS: HYDROcodone/APAP 5-325MG 1 EACH TAB PO PRN ×2 (05:38→22:00)
[2018-11-12] MEDS: CYANOCOBALAMIN 500 MCG TAB PO SCH (08:21)
[2018-11-12] MEDS: POTASSIUM CHLORIDE ER 10 MEQ TAB.ER.PRT PO SCH (08:21)
[2018-11-12] MEDS ORDERED: BUPROPION HCL 150 MG PO SCH (09:00)
--- NOTE | 2018-11-12 10:47 | P.PN ---
Subjective Progress Note Date: 11/12/18 Principal diagnosis: S/P RCR Patient is seen at bedside this morning. She is postop day #1 from right RCR.. She has pain at the surgical site as expected but denies any new complaints. She denies numbness, tingling or calf pain. Review of systems is negative for fever, chills, chest pain, shortness of breath or other Objective - Vital Signs Vital signs: Vital Signs Temp 99.9 F H 11/12/18 07:00 Pulse 90 11/12/18 07:00 Resp 20 11/12/18 07:00 BP 150/77 11/12/18 07:00 Pulse Ox 92 L 11/12/18 07:00 Intake & Output 11/11/18 11/12/18 11/12/18 18:59 06:59 18:59 Intake Total 1029 Output Total 10 Balance 1019 Intake: IV 1029 Output: Estimated Blood Loss 10 Other: Voiding Method Toilet # Voids 1 - Exam Inspection reveals a benign surgical wound. There is no active bleeding or drainage. Neurovascular status is intact throughout the upper extremity with motor and sensation fully intact. Calves are soft and nontender. 2+ radial pulse and less than 2 second cap refill is present. - Constitutional General appearance: Present: no acute distress Assessment and Plan (1) S/P rotator cuff repair Narrative/Plan: She will continue with routine postop orthopedic protocol including pain management, wound care, DVT prophylaxis and medical management. Expect that he will transfer to rehab in next 1-2 days Current Visit: Yes Status: Acute Priority: Medium Code(s): Z98.890 - OTHER SPECIFIED POSTPROCEDURAL STATES SNOMED Code(s): 607997497 Time with Patient: Less than 30
[2018-11-12] MEDS: ALBUTEROL NEBULIZED 2.5 MG/3 ML INHALATION PRN (13:29)
[2018-11-12] MEDS: LACTATED RINGERS 1,000 ML IV SCH ×2 (18:01→21:54)
[2018-11-12] MEDS: DULoxetine HCL 30 MG CAPSULE.DR PO SCH (22:00)
[2018-11-12] MEDS: ATORVASTATIN 20 MG TAB PO SCH (22:00)
[2018-11-12] MEDS: MULTIVITAMINS, THERA 1 EACH TAB PO SCH (22:00)
[2018-11-12] MEDS: ATENOLOL 50 MG TAB PO SCH (22:00)
[2018-11-12] MEDS: CHLORTHALIDONE 25 MG TAB PO SCH (22:00)
[2018-11-12] MEDS: VERAPAMIL 40 MG TAB PO SCH (22:01)
[2018-11-12] MEDS: CHOLECALCIFEROL 1,000 UNIT TAB PO SCH (22:01)
[2018-11-12] MEDS: [UNRECOGNIZED DRUG - OTHER] PO SCH (22:01)
[2018-11-13] MEDS: HYDROcodone/APAP 5-325MG 1 EACH TAB PO PRN ×3 (05:21→21:14)
[2018-11-13] MEDS: LACTATED RINGERS 1,000 ML IV SCH ×3 (05:22→17:37)
[2018-11-13 08:01] LABS: Calcium 9.8 mg/dL (8.4-10.2); Potassium 3.3 mmol/L (3.5-5.1)
[2018-11-13 08:36] LABS: Basophils # (A) 0.1 k/uL (0-0.2); Basophils % (A) 0 %; Eosinophils # (A) 0.1 k/uL (0-0.7); Eosinophils % (A) 1 %; HCT 40.7 % (34.0-46.0); HGB 14.7 gm/dL (11.4-16.0); Lymphocytes # (A) 2.9 k/uL (1.0-4.8); Lymphocytes % (A) 27 %; MCH 32.8 pg (25.0-35.0); MCHC 36.2 g/dL (31.0-37.0); MCV 90.4 fL (80.0-100.0); Mean Platelet Volume 6.9; Monocytes # (A) 1.3 k/uL (0-1.0); Monocytes % (A) 11 %; Neutrophils # (A) 6.5 k/uL (1.3-7.7); Neutrophils % (A) 59 %; Platelet Count 259 k/uL (150-450); RDW 12.8 % (11.5-15.5)
[2018-11-13] MEDS: POTASSIUM CHLORIDE ER 10 MEQ TAB.ER.PRT PO SCH (09:32)
[2018-11-13] MEDS: CYANOCOBALAMIN 500 MCG TAB PO SCH (09:32)
--- NOTE | 2018-11-13 10:48 | P.PN ---
Subjective Progress Note Date: 11/13/18 Principal diagnosis: S/P RCR Patient is seen at bedside this morning. She is postop day #2 from right RCR. She has pain at the surgical site which is controlled. She is having a cough and some chest congestion this am. She denies any other new complaints. She denies numbness, tingling or calf pain. Review of systems is negative for fever, chills, chest pain, shortness of breath or other Objective - Vital Signs Vital signs: Vital Signs Temp 98.8 F 11/13/18 07:00 Pulse 67 11/13/18 07:00 Resp 17 11/13/18 07:00 BP 172/86 11/13/18 07:00 Pulse Ox 92 L 11/13/18 07:00 Intake & Output 11/12/18 11/13/18 11/13/18 18:59 06:59 18:59 Intake Total 1760 300 280 Output Total 2 Balance 1758 300 280 Intake: Intake, IV Titration 800 Amount Lactated Ringers 1,000 ml 800 @ 100 mls/hr IV .Q10H [facility] Rx#:[id number] Oral 960 300 280 Output: Urine 2 Other: Voiding Method Toilet # Voids 2 - Exam Inspection reveals a benign surgical wound. There is no active bleeding or drainage. Neurovascular status is intact throughout the upper extremity with motor and sensation fully intact. Calves are soft and nontender. 2+ radial pulse and less than 2 second cap refill is present. - Constitutional General appearance: Present: no acute distress - Labs CBC & Chem 7: 11/13/18 07:19 11/13/18 07:19 Labs: Abnormal Lab Results - Last 24 Hours (Table) 11/13/18 11/13/18 Range/Units 07:19 07:19 WBC 11.0 H (3.8-10.6) k/uL Monocytes # 1.3 H (0-1.0) k/uL Potassium 3.3 L (3.5-5.1) mmol/L Carbon Dioxide 35 H (22-30) mmol/L Assessment and Plan (1) S/P rotator cuff repair Narrative/Plan: She will continue with routine postop orthopedic protocol including sling, pain management, wound care, DVT prophylaxis and medical management. Will request IM address her cough/congestion. Expect that she will transfer to rehab tomorrow. Current Visit: Yes Status: Acute Priority: Medium Code(s): Z98.890 - OTHER SPECIFIED POSTPROCEDURAL STATES SNOMED Code(s): 214580563 Time with Patient: Less than 30
--- NOTE | 2018-11-13 15:19 | P.CON ---
Consult Note - . Consult date: 11/12/18 Assessment/Plan:: Reason for consult - management of chronic medical conditions. Covering for Dr. Rojas over the weekend. Mrs. Phan is a 78-year-old female with a past medical history of COPD, hypertension, hyperlipidemia, osteoarthritis, obstructive sleep apnea on CPAP admitted for repair of right rotator cuff injury. Patient is status post rotator cuff repair done yesterday by Dr. Bartlett. Today the patient is sitting comfortably in the bed appears to be no acute distress. Patient has some soreness at the site of the surgery. She denies having any fevers chills or rigors. Patient denies having any chest pain or difficulty in breathing. She denies having any palpitations. No cough. She denies having any dysuria or hematuria. Patient denies having any abdominal pain nausea vomiting or diarrhea. Denies having any PND or orthopnea. She has obstructive sleep apnea and uses CPAP at night. Patient is a former smoker. REVIEW OF SYSTEMS: PSYCH: No anxiety or depression NEURO:No c/o weakness of the extremties, No facial droop, No speech abnormalities. VASCULAR: Peripheral nervous system within the normal limits no edema HEMATOLOGIC: No history of easy bleeding and bruising . No recent infections . RESPIRATORY: No cough, No SOB, No chest discomfort. 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 No constipation or diarrhea. 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" Past Anesthesia/Blood Transfusion Reactions: No Reported Reaction Additional Past Anesthesia/Blood Transfusion Reaction / Comment(s): no hx blood transfusion Past Psychological History: Depression Smoking Status: Current every day smoker Past Alcohol Use History: None Reported Additional Past Alcohol Use History / Comment(s): smokes 1ppd from age 37 (1977) Past Drug Use History: None Reported - Past Family History Sister(s) Family Medical History: Cancer Additional Family Medical History / Comment(s): 2 sisters had breast ca, one sister had ovarian ca Daughter(s) Family Medical History: Cancer Additional Family Medical History / Comment(s): breast CA Medications and Allergies Home Medications Medication Instructions Recorded Confirmed Type Atenolol/Chlorthalidone 1 tab PO HS 02/26/17 11/11/18 History [Atenolol-Chlorthalidone 50-25] Atorvastatin [Lipitor] 20 mg PO HS 02/26/17 11/11/18 History Glucosam/Jamil-Msm1/C/Fran/Bosw 1 tab PO HS 02/26/17 11/09/18 History [Glucosamine-Chondroitin Tablet] Albuterol Inhaler [Ventolin Hfa 2 puff INHALATION RT-Q6H PRN 03/09/17 11/11/18 History Inhaler] Albuterol Nebulized [Ventolin 2.5 mg INHALATION RT-BID PRN 03/09/17 11/11/18 History Nebulized] Cholecalciferol [Vitamin D3] 4,000 unit PO HS 03/09/17 11/09/18 History Fluticasone/Salmeterol [Advair 1 inhalation PO RT-HS PRN 03/09/17 11/11/18 History 250-50 Diskus] Multivitamins, Thera [Multivitamin 1 tab PO HS 03/09/17 11/09/18 History (formulary)] Tiotropium [place] [Spiriva] 1 cap INHALATION RT-HS PRN 03/09/17 11/11/18 History Verapamil HCl 120 mg PO HS 03/09/17 11/11/18 History Cyanocobalamin (Vitamin B-12) 1,000 mcg PO DAILY 11/09/18 11/09/18 History [Vitamin B-12] DULoxetine HCL [Cymbalta] 30 mg PO HS 11/09/18 11/11/18 History Diclofenac Sodium [Voltaren Gel] 2 gram TOPICAL DAILY PRN 11/09/18 11/09/18 History Potassium Chloride [Klor-Con 10] 30 meq PO DAILY 11/09/18 11/11/18 History HYDROcodone/APAP 5-325MG [[place] 1 - 2 each PO Q4-6H PRN #50 tab 11/11/18 Rx 5-325] Sennosides-Docusate Sodium 1 tab PO BID #60 tablet 11/11/18 Rx [Senokot-S] Allergies Allergy/AdvReac Type Severity Reaction Status Date / Time No Known Allergies Allergy Verified 11/11/18 10:50 Physical Exam Vitals: Vital Signs Temp Pulse Pulse Pulse Resp BP Pulse Ox 11/12/18 14:39 98.1 F 86 20 134/76 92 L 11/12/18 13:39 92 11/12/18 13:29 92 11/12/18 07:00 99.9 F H 90 20 150/77 92 L 11/12/18 00:59 98.6 F 95 18 169/83 91 L 11/11/18 22:44 148/83 11/11/18 21:39 96 11/11/18 21:30 96 94 L 11/11/18 20:50 97.8 F 96 18 174/94 93 L 11/11/18 17:49 88 140/86 11/11/18 17:33 87 164/96 91 L 11/11/18 17:19 82 188/80 11/11/18 17:04 81 182/92 Intake and Output 11/12/18 11/12/18 11/12/18 06:59 14:59 22:59 Intake Total 1760 Output Total 2 Balance 1758 Intake: Intake, IV Titration 800 Amount Lactated Ringers 1,000 ml 800 @ 100 mls/hr IV .Q10H [facility] Rx#:[id number] Oral 960 Output: Urine 2 Other: # Voids 1 PHYSICAL EXAM GEN. APPEARANCE: alert, in no apparent distress HEAD EXAM: atraumatic, normocephalic, normal inspection EYE EXAM: normal appearance, PERRL, EOMI. Absent: scleral icterus, conjunctival injection, periorbital swelling ENT EXAM: normal exam, mucous membranes moist NECK EXAM: normal inspection. Absent: tenderness, meningismus, full ROM, lymphadenopathy RESPIRATORY EXAM: normal lung sounds bilaterally. Absent: respiratory distress, wheezes, rales, rhonchi, stridor CARDIOVASCULAR EXAM: regular rate, normal rhythm, normal heart sounds. Absent: systolic murmur, diastolic murmur, rubs, gallop, clicks GI/ABDOMINAL EXAM: soft, normal bowel sounds. Absent: distended, tenderness, guarding, rebound, rigid EXTREMITIES EXAM: Examination of the right shoulder- no active bleeding or drainage. Neurovascular status intact. BACK EXAM: normal inspection NEUROLOGICAL EXAM: alert, oriented X3, CN II-XII intact, motor sensory deficit PSYCHIATRIC EXAM: normal affect, normal mood SKIN EXAM: warm, dry, intact, normal color. Absent: rash Patient did not have any labs drawn. ASSESSMENT Right shoulder rotator cuff tendinopathy - status post repair. Postop day 1 Essential hypertension COPD in excess smoker History of breast cancer status post radiation and chemotherapy Hyperlipidemia Osteoarthritis Obstructive sleep apnea on CPAP PLAN:Patient has been restarted on her home medications. Patient's blood pre ssure is within normal limits. We will continue with the current medication regimen. Pain management and DVT prophylaxis as per primary care team management. Further recommendations depending on the progress of the patient. Thank you for the consult.
[2018-11-13] MEDS: ALBUTEROL NEBULIZED 2.5 MG/3 ML INHALATION PRN (16:15)
[2018-11-13] MEDS: IPRATROPIUM-ALBUTEROL 3 ML NEB INHALATION SCH (20:04)
[2018-11-13] MEDS: SYMBICORT 80-4.5 MCG INHALER INHALATION PRN (20:04)
[2018-11-13] MEDS: DULoxetine HCL 30 MG CAPSULE.DR PO SCH (21:00)
[2018-11-13] MEDS: CHLORTHALIDONE 25 MG TAB PO SCH (21:00)
[2018-11-13] MEDS: ATENOLOL 50 MG TAB PO SCH (21:01)
[2018-11-13] MEDS: ATORVASTATIN 20 MG TAB PO SCH (21:01)
[2018-11-13] MEDS: CHOLECALCIFEROL 1,000 UNIT TAB PO SCH (21:01)
[2018-11-13] MEDS: VERAPAMIL 40 MG TAB PO SCH (21:01)
[2018-11-13] MEDS: MULTIVITAMINS, THERA 1 EACH TAB PO SCH (21:01)
[2018-11-13] MEDS: [UNRECOGNIZED DRUG - OTHER] PO SCH (21:03)
--- NOTE | 2018-11-13 22:23 | P.PN ---
Subjective Progress Note Date: 11/13/[address] Rojas over the weekend. Ms. Ennis is a 78-year-old female with a past medical history of COPD, hypertension, hyperlipidemia, osteoarthritis, obstructive sleep apnea on CPAP admitted for repair of right rotator cuff injury. Patient is status post rotator cuff repair done yesterday by Dr. Bartlett. Today the patient is sitting comfortably in the bed appears to be no acute distress. Patient has some soreness at the site of the surgery. She denies having any fevers chills or rigors. Patient denies having any chest pain or difficulty in breathing. She denies having any palpitations. No cough. She denies having any dysuria or hematuria. Patient denies having any abdominal pain nausea vomiting or diarrhea. Denies having any PND or orthopnea. She has obstructive sleep apnea and uses CPAP at night. Patient is a former smoker. On 11/13/18 - Pt was sitting up in the bed and no acute distress. She has c/o mild difficulty in breathing and cough. Cough is mostly dry. No chest pain or palpitations. She denies having any LE swelling. REVIEW OF SYSTEMS: RESPIRATORY: As above : No dysuria or hematuria CARDIAC: No chest pain or paroxysmal nocturnal dyspnea GI: No abdominal pain, Nausea or vomiting. No constipation or diarrhea. Active Medications Hydrocodone Bitart/Acetaminophen (Gary 5-325) 1 each PO Q6HR PRN PRN Reason: Pain Scale 1 to 5 Last Admin: 11/11/18 16:15 Dose: 1 each Documented by: Hydrocodone Bitart/Acetaminophen (Gary 5-325) 2 each PO Q6HR PRN PRN Reason: Pain Scale 6 to 10 Last Admin: 11/13/18 21:14 Dose: 2 each Documented by: Albuterol Sulfate (Ventolin Nebulized) 2.5 mg INHALATION RT-Q6H PRN PRN Reason: Shortness Of Breath Last Admin: 11/13/18 16:15 Dose: 2.5 mg Documented by: Albuterol/Ipratropium (Duoneb 0.5 Mg-3 Mg/3 Ml Soln) 3 ml INHALATION RT-TID CABRERA Last Admin: 11/13/18 20:04 Dose: 3 ml Documented by: Atenolol (Tenormin) 50 mg PO HS CABRERA Last Admin: 11/13/18 21:01 Dose: 50 mg Documented by: Atorvastatin Calcium (Lipitor) 20 mg PO [facility] Last Admin: 11/13/18 21:01 Dose: 20 mg Documented by: Budesonide/Formoterol Fumarate (Symbicort 80-4.5 Mcg Inhaler) 2 puff INHALATION RT-BID PRN PRN Reason: sob Last Admin: 11/13/18 20:04 Dose: 2 puff Documented by: Chlorthalidone (Hygroton) 25 mg PO [facility] Last Admin: 11/13/18 21:00 Dose: 25 mg Documented by: Cholecalciferol (Vitamin D3) 4,000 unit PO [facility] Last Admin: 11/13/18 21:01 Dose: 4,000 unit Documented by: Cyanocobalamin (Vitamin B-12) 1,000 mcg PO DAILY@1200 [facility] Last Admin: 11/13/18 09:32 Dose: 1,000 mcg Documented by: Diclofenac Sodium (Voltaren Gel) 2 gm TOPICAL DAILY PRN PRN Reason: Pain Diphenhydramine HCl (Benadryl) 25 mg PO HS PRN PRN Reason: Insomnia Duloxetine HCl (Cymbalta) 30 mg PO [facility] Last Admin: 11/13/18 21:00 Dose: 30 mg Documented by: Hydromorphone HCl (Dilaudid) 0.125 mg IVP Q3HR PRN PRN Reason: Pain Scale 1 to 3 Hydromorphone HCl (Dilaudid) 0.25 mg IVP Q3HR PRN PRN Reason: Pain Scale 4 to 6 Hydromorphone HCl (Dilaudid) 0.5 mg IVP Q3HR PRN PRN Reason: Pain Scale 7 to 10 Hydroxyzine Pamoate (Vistaril) 25 mg PO Q6HR PRN PRN Reason: Nausea/Anxiety Lactated Ringer's (Lactated Ringers) 1,000 mls @ 20 mls/hr IV .Q24H [facility] Last Admin: 11/13/18 05:22 Dose: Not Given Documented by: Lactated Ringer's (Lactated Ringers) 1,000 mls @ 100 mls/hr IV .Q10H [facility] Last Admin: 11/13/18 17:37 Dose: Not Given Documented by: Ipratropium [place] (Atrovent Nebulized) 0.5 mg INHALATION RT-QID PRN PRN Reason: sob Multivitamins (Theragran) 1 each PO HS [facility] Last Admin: 11/13/18 21:01 Dose: 1 each Documented by: Glucosam/Jamil-Msm1/C /Fran/Bosw [ Glucosamine- Chondroitin Tablet] 1 Tab 1 tab PO HS [facility] Last Admin: 11/13/18 21:03 Dose: Not Given Documented by: Ondansetron HCl (Zofran) 4 mg IVP Q6HR PRN PRN Reason: Nausea And Vomiting Last Admin: 11/11/18 14:53 Dose: 4 mg Documented by: Potassium Chloride (K-Dur 10) 30 meq PO DAILY [facility] Last Admin: 11/13/18 09:32 Dose: 30 meq Documented by: Senna/Docusate Sodium (Senokot-S) 2 each PO HS PRN PRN Reason: Constipation Last Admin: 11/13/18 15:29 Dose: 2 each Documented by: Verapamil HCl (Isoptin) 120 mg PO HS [facility] Last Admin: 11/13/18 21:01 Dose: 120 mg Documented by: Objective - Vital Signs Vital signs: Vital Signs Temp 98.8 F 11/13/18 07:00 Pulse 67 11/13/18 07:00 Resp 17 11/13/18 07:00 BP 172/86 11/13/18 07:00 Pulse Ox 92 L 11/13/18 07:00 Intake & Output 11/12/18 11/13/18 11/13/18 18:59 06:59 18:59 Intake Total 1760 300 530 Output Total 2 Balance 1758 300 530 Intake: Intake, IV Titration 800 Amount Lactated Ringers 1,000 ml 800 @ 100 mls/hr IV .Q10H [facility] Rx#:[id number] Oral 960 300 530 Output: Urine 2 Other: Voiding Method Toilet # Voids 2 - Exam GEN. APPEARANCE: alert, in no apparent distress HEAD EXAM: atraumatic, normocephalic, normal inspection EYE EXAM: normal appearance, PERRL, EOMI. Absent: scleral icterus, conjunctival injection, periorbital swelling RESPIRATORY EXAM: Coarse breath sounds bilaterally . No wheeze or crackles. CARDIOVASCULAR EXAM: regular rate, normal rhythm, normal heart sounds. Absent: systolic murmur, diastolic murmur, rubs, gallop, clicks GI/ABDOMINAL EXAM: soft, normal bowel sounds. Absent: distended, tenderness, guarding, rebound, rigid EXTREMITIES EXAM: Examination of the right shoulder- no active bleeding or drainage. Neurovascular status intact. NEUROLOGICAL EXAM: alert, oriented X3, No focal deficits - Labs CBC & Chem 7: 11/13/18 07:19 11/13/18 07:19 Labs: Abnormal Lab Results - Last 24 Hours (Table) 11/13/18 11/13/18 Range/Units 07:19 07:19 WBC 11.0 H (3.8-10.6) k/uL Monocytes # 1.3 H (0-1.0) k/uL Potassium 3.3 L (3.5-5.1) mmol/L Carbon Dioxide 35 H (22-30) mmol/L Assessment and Plan Assessment: ASSESSMENT Right shoulder rotator cuff tendinopathy - status post repair. Postop day 2 Acute COPD Exacerbation Essential hypertension History of breast cancer status post radiation and chemotherapy Hyperlipidemia Osteoarthritis Obstructive sleep apnea on CPAP PLAN:As the pt has coarse breath sounds, she has been started on DueoNeb breat peyton treatments today. Will get a CXR. Patient has been restarted on her home medications. Patient's blood pressure is within normal limits. We will continue with the current medication regimen. Pain management and DVT prophylaxis as per primary care team management. Dr. Rojas to follow her from tomorrow.
[2018-11-13] MEDS: ENOXAPARIN 40 MG/0.4 ML SYRINGE SQ SCH (22:38)
--- NOTE | 2018-11-13 23:03 | XR ---
EXAM: XR Chest, 1 View CLINICAL HISTORY: ITS.REASON XR Reason: SOB TECHNIQUE: Frontal view of the chest. COMPARISON: No relevant prior studies available. FINDINGS: Lungs: Unremarkable. No consolidation. Pleural space: Unremarkable. No pneumothorax. Heart: No pneumomediastinum. Mediastinum: Unremarkable. Bones/joints: No definite fracture. IMPRESSION: No acute findings.
[2018-11-14] MEDS: LACTATED RINGERS 1,000 ML IV SCH ×3 (01:55→10:58)
[2018-11-14] MEDS: POTASSIUM CHLORIDE ER 10 MEQ TAB.ER.PRT PO SCH (07:27)
[2018-11-14] MEDS: CYANOCOBALAMIN 500 MCG TAB PO SCH (07:27)
[2018-11-14] MEDS: HYDROcodone/APAP 5-325MG 1 EACH TAB PO PRN ×2 (07:28→20:51)
--- NOTE | 2018-11-14 07:54 | P.DS ---
Providers Expected date of discharge: 11/14/18 Attending physician: Peter Bartlett Consults: 11/11/18 13:37 Consult Physician Routine Consulting Provider: Junaid Rojas Consult Reason/Comments: Medical management Do you want consulting provider notified?: Yes Primary care physician: Viktor Walter - Discharge Diagnosis(es) (1) S/P rotator cuff repair Current Visit: Yes Status: Acute Priority: Medium (2) Hypertension Current Visit: Yes Status: Acute (3) COPD (chronic obstructive pulmonary disease) Current Visit: Yes Status: Acute Hospital Course: This is a 78-year-old female with history of rotator cuff tendinitis and subacromial impingement of the right shoulder. She has failed outpatient conservative measures and presents to discuss surgical options. After discussion and consideration the patient elects to proceed with right shoulder arthroscopy with subacromial decompression, excision distal clavicle and debridement of rotator cuff. The patient is admitted to [facility] on 11/11/2018 for surgical procedure. The patient has difficulty with ADLs. It is recommended that she go to inpatient rehab postoperatively. The patient is discharged to inpatient rehab on 11/14/2018. She is to continue with range of motion exercises to the right upper extremity. Maintain sling for comfort right upper extremity. Plan - Discharge Summary Discharge Rx Participant: No New Discharge Prescriptions: New HYDROcodone/APAP 5-325MG [Mallory 5-325] 1 - 2 each PO Q4-6H PRN #50 tab PRN Reason: Pain Sennosides-Docusate Sodium [Senokot-S] 1 tab PO BID #60 tablet No Action Atorvastatin [Lipitor] 20 mg PO HS Glucosam/Jamil-Msm1/C/Fran/Bosw [Glucosamine-Chondroitin Tablet] 1 tab PO HS Atenolol/Chlorthalidone [Atenolol-Chlorthalidone 50-25] 1 tab PO HS Fluticasone/Salmeterol [Advair 250-50 Diskus] 1 inhalation PO RT-HS PRN PRN Reason: sob Albuterol Inhaler [Ventolin Hfa Inhaler] 2 puff INHALATION RT-Q6H PRN PRN Reason: Shortness Of Breath Tiotropium [place] [Spiriva] 1 cap INHALATION RT-HS PRN PRN Reason: sob Multivitamins, Thera [Multivitamin (formulary)] 1 tab PO HS Cholecalciferol [Vitamin D3] 4,000 unit PO HS Verapamil HCl 120 mg PO HS Albuterol Nebulized [Ventolin Nebulized] 2.5 mg INHALATION RT-BID PRN PRN Reason: Shortness Of Breath Cyanocobalamin (Vitamin B-12) [Vitamin B-12] 1,000 mcg PO DAILY DULoxetine HCL [Cymbalta] 30 mg PO HS Potassium Chloride [Klor-Con 10] 30 meq PO DAILY Diclofenac Sodium [Voltaren Gel] 2 gram TOPICAL DAILY PRN PRN Reason: Pain Discharge Medication List Atenolol/Chlorthalidone [Atenolol-Chlorthalidone 50-25] 1 tab PO HS 02/26/17 [History] Atorvastatin [Lipitor] 20 mg PO HS 02/26/17 [History] Glucosam/Jamil-Msm1/C/Fran/Bosw [Glucosamine-Chondroitin Tablet] 1 tab PO HS 02/26/17 [History] Albuterol Inhaler [Ventolin Hfa Inhaler] 2 puff INHALATION RT-Q6H PRN 03/09/17 [History] Albuterol Nebulized [Ventolin Nebulized] 2.5 mg INHALATION RT-BID PRN 03/09/17 [History] Cholecalciferol [Vitamin D3] 4,000 unit PO HS 03/09/17 [History] Fluticasone/Salmeterol [Advair 250-50 Diskus] 1 inhalation PO RT-HS PRN 03/09/17 [History] Multivitamins, Thera [Multivitamin (formulary)] 1 tab PO HS 03/09/17 [History] Tiotropium [place] [Spiriva] 1 cap INHALATION RT-HS PRN 03/09/17 [History] Verapamil HCl 120 mg PO HS 03/09/17 [History] Cyanocobalamin (Vitamin B-12) [Vitamin B-12] 1,000 mcg PO DAILY 11/09/18 [ History] DULoxetine HCL [Cymbalta] 30 mg PO HS 11/09/18 [History] Diclofenac Sodium [Voltaren Gel] 2 gram TOPICAL DAILY PRN 11/09/18 [History] Potassium Chloride [Klor-Con 10] 30 meq PO DAILY 11/09/18 [History] HYDROcodone/APAP 5-325MG [Mallory 5-325] 1 - 2 each PO Q4-6H PRN #50 tab 11/11/18 [Rx] Sennosides-Docusate Sodium [Senokot-S] 1 tab PO BID #60 tablet 11/11/18 [Rx] Follow up Appointment(s)/Referral(s): [facility], [NON-STAFF] - 1 Week Peter Bartlett MD [STAFF PHYSICIAN] - 1 Week Discharge Disposition: TRANSFER TO SNF/ECF
[2018-11-14] MEDS: IPRATROPIUM-ALBUTEROL 3 ML NEB INHALATION SCH ×3 (08:42→19:41)
[2018-11-14] MEDS: SYMBICORT 80-4.5 MCG INHALER INHALATION PRN ×2 (08:43→19:41)
[2018-11-14] MEDS ORDERED: amLODIPine 2.5 MG TAB PO STA (13:17)
[2018-11-14] MEDS: ATENOLOL 50 MG TAB PO SCH (20:38)
[2018-11-14] MEDS: CHLORTHALIDONE 25 MG TAB PO SCH (20:38)
[2018-11-14] MEDS: MULTIVITAMINS, THERA 1 EACH TAB PO SCH (20:38)
[2018-11-14] MEDS: VERAPAMIL 40 MG TAB PO SCH (20:38)
[2018-11-14] MEDS: DULoxetine HCL 30 MG CAPSULE.DR PO SCH (20:38)
[2018-11-14] MEDS: ATORVASTATIN 20 MG TAB PO SCH (20:38)
[2018-11-14] MEDS: CHOLECALCIFEROL 1,000 UNIT TAB PO SCH (20:38)
[2018-11-14] MEDS: [UNRECOGNIZED DRUG - OTHER] PO SCH (20:39)
[2018-11-14] MEDS: ENOXAPARIN 40 MG/0.4 ML SYRINGE SQ SCH (20:52)
--- NOTE | 2018-11-14 23:17 | PN ---
PROGRESS NOTE DATE OF SERVICE: November 14, 2018. PRESENTING COMPLAINT: Shoulder surgery. INTERVAL HISTORY: Patient is status post shoulder repair. Pain is controlled. Breathing is stable. Tolerating a diet. No chest pain. REVIEW OF SYSTEMS: Done for constitutional, cardiovascular, GI, pulmonary and findings as above. CURRENT MEDICATIONS: Reviewed. PHYSICAL EXAMINATION: VITAL SIGNS: Temperature 98.7, pulse 81, respirations 16, blood pressure 116/52, pulse ox 98% on room air. GENERAL APPEARANCE: Sitting up, awake. EYES: Pupils equal. Conjunctivae normal. NECK: JVD not raised. Mass not palpable. RESPIRATORY: Effort normal. LUNGS: Slightly decreased breath sounds. CARDIOVASCULAR: 1st and 2nd sounds normal. No edema. ABDOMEN: Soft, nontender. Liver and spleen not palpable. PSYCHIATRY: Alert and oriented x3. Mood and affect normal. INVESTIGATIONS: No blood work from today. ASSESSMENT: 1. Right shoulder rotator cuff surgery. 2. Chronic obstructive pulmonary disease. 3. Essential hypertension. 4. Hyperlipidemia. 5. Primary osteoarthritis. 6. Obstructive sleep apnea on CPAP. PLAN: We will replace patient's potassium. Otherwise medically stable. Other medications to continue. MMODL / IJN: [id number] /
[2018-11-15] MEDS: HYDROcodone/APAP 5-325MG 1 EACH TAB PO PRN ×2 (04:42→14:55)
[2018-11-15 07:49] LABS: Potassium 3.9 mmol/L (3.5-5.1)
[2018-11-15 08:11] VITALS: BP 165/91; TEMP 98.5
[2018-11-15] MEDS: CYANOCOBALAMIN 500 MCG TAB PO SCH (08:24)
[2018-11-15] MEDS: POTASSIUM CHLORIDE ER 10 MEQ TAB.ER.PRT PO SCH (08:25)
[2018-11-15] MEDS: IPRATROPIUM-ALBUTEROL 3 ML NEB INHALATION SCH ×2 (08:30→13:08)
[2018-11-15] MEDS: SYMBICORT 80-4.5 MCG INHALER INHALATION PRN (08:43)
[2018-11-15 08:46] VITALS: PULSE 72; RESP 16
--- NOTE | 2018-11-17 17:30 | CDI ---
Documentation Clarification Form Date: 11/17/18 From: Eduarda Larry Phone: If you have a question regarding this query, please contact Kamini Marroquin at [phone] between 8am and 5pm. Admit Date: 11/14/2018 8:29:00 AM Patient Name: Kelsi Ennis Visit Number: [id number] Discharge Date: 11/15/2018 3:41:00 PM ATTENTION: The Clinical Documentation Specialists (CDI) and [facility] Coding Staff appreciate your assistance in clarifying documentation. Please respond to the clarification below the line at the bottom and electronically sign. The CDI & [facility] Coding staff will review the response and follow-up if needed. Please note: Queries are made part of the Legal Health Record. If you have any questions, please contact the author of this message via ITS. Dr. Peter Bartlett Per your progress notes/operative note, a debridement of partial thickness rotator cuff tears and bucio labral tears was performed. History/Risk Factors: Patient was admitted for right shoulder rotator cuff tendinopathy, chronic impingement syndrome, acromioclavicular osteoarthritis, labral degenerative tears, severe biceps tendon degeneration and moderate adhesion of the glenohumeral joint and subacromial space. Clinical Indicators: Right shoulder pain, tingling and numbness. Treatment: Debridement of partial thickness rotator cuff tears and bucio labral tearing, biceps tenotomy, glenoid chondroplasty, subacromial bursectomy, partial excision of distal clavicle, subacromial decompression and lysis of adhesions. In order to capture the severity of condition and code the appropriate procedure; could you please document the following: Excisional debridement (the removal of necrotic, devitalized tissue or slough by means of cutting away of tissue) Non-excisional debridement (the removal of necrotic, devitalized tissue or slough by means of flushing, brushing, or washing. (Irrigation) Other; please specify Unable to determine The tissue I debrided was not or necrotic tissue. I have never used an "excisional debridement" code for an arthroscopic debridement of a rotator cuff or labral tear. This is a degenerative problem, not a necrotic/vascular issue. The codes for arthroscopic debridement of labral tears, rotator cuff tears, etc should be under the arthroscopic surgery section concerning shoulders in the Procedure manual. I hope this helps. [facility]
--- NOTE | 2018-11-21 04:50 | PN ---
PROGRESS NOTE DATE OF SERVICE: 11/15/2018 PRESENTING COMPLAINT: Shoulder surgery. INTERVAL HISTORY: Patient is status post shoulder the patient's pain is much better controlled. Doing well. No new issues. Up and about. REVIEW OF SYSTEMS: Done for constitutional, cardiovascular, GI, pulmonary; relevant findings as above. CURRENT MEDICATIONS: Reviewed. PHYSICAL EXAMINATION: VITAL SIGNS: Temperature 98.5, pulse 93, respirations 20, blood pressure 165/91, pulse ox 92 percent on room air. LUNGS: Slightly decreased breath sounds. CARDIOVASCULAR: First and second sounds normal. No edema. ABDOMEN: Soft, nontender. Liver and spleen not palpable. PSYCHIATRY: Alert and oriented times three. Mood and affect normal. GENERAL APPEARANCE: Comfortable. EYES: Pupils equal. Conjunctivae normal. INVESTIGATIONS: Potassium 3.9. ASSESSMENT: 1. Right shoulder rotator cuff surgery. 2. Chronic obstructive pulmonary disease. 3. Essential hypertension. 4. Hyperlipidemia. 5. Primary osteoarthritis. 6. Obstructive sleep apnea on CPAP, stable. Continue current medication and treatment plan. MMODL / IJN: [id number] /
== END 2018-11-15 15:41 | disposition home or self-care (01) | DRG 511 ==
LOC: OR 10:36 → 4SSUR 14:22 → OR 16:03 → 4SSUR 11-14 08:29
PROVIDERS: ADMIT Orthopaedic Surgery; ATTEND Orthopaedic Surgery
PROC: 0RNJ4ZZ Release Right Shoulder Joint, Percutaneous Endoscopic Approach (ICD-10-PCS; 2018-11-11)
PROC: 0LQ14ZZ Repair Right Shoulder Tendon, Percutaneous Endoscopic Approach (ICD-10-PCS; 2018-11-11)
PROC: 0LQ14ZZ Repair Right Shoulder Tendon, Percutaneous Endoscopic Approach (ICD-10-PCS; principal; 2018-11-11 12:30)
DX: M75.41 Impingement syndrome of right shoulder (principal); J44.1 Chronic obstructive pulmonary disease with (acute) exacerbation; M87.811 Other osteonecrosis, right shoulder; I35.0 Nonrheumatic aortic (valve) stenosis; M25.811 Other specified joint disorders, right shoulder; E78.5 Hyperlipidemia, unspecified; F17.210 Nicotine dependence, cigarettes, uncomplicated; G47.33 Obstructive sleep apnea (adult) (pediatric); I10 Essential (primary) hypertension; M65.811 Other synovitis and tenosynovitis, right shoulder; F32.9 Major depressive disorder, single episode, unspecified; M75.51 Bursitis of right shoulder; M19.011 Primary osteoarthritis, right shoulder; M50.10 Cervical disc disorder with radiculopathy, unspecified cervical region; I73.9 Peripheral vascular disease, unspecified; Z79.899 Other long term (current) drug therapy; Z92.3 Personal history of irradiation; Z92.21 Personal history of antineoplastic chemotherapy; Z90.710 Acquired absence of both cervix and uterus; Z85.3 Personal history of malignant neoplasm of breast; Z90.13 Acquired absence of bilateral breasts and nipples; Z80.3 Family history of malignant neoplasm of breast; Z80.41 Family history of malignant neoplasm of ovary
CPT/HCPCS: 64415; 80048; 85025; 94640; 94760

== ENCOUNTER → 2019-03-06 | Outpatient (CLI) | payer MEDICARE ==
--- NOTE | 2019-03-06 11:39 | US ---
EXAMINATION TYPE: US abdomen complete DATE OF EXAM: 03/06/2019 COMPARISON: NONE CLINICAL HISTORY: K76.9 Liver disease, unspecified. NPO, abnormal labs, no pain EXAM MEASUREMENTS: Liver Length: 17.1 cm Gallbladder Wall: 0.2 cm CBD: 0.5 cm Spleen: 10.6 cm Right Kidney: 10.9 x 4.1 x 3.9 cm Left Kidney: 10.2 x 3.5 x 4.5 cm Limited visualization due to overlying bowel gas Pancreas: Appears echogenic in appearance. Main pancreatic duct = 2.6 mm . Suboptimal visualization of the pancreas. Liver: Slightly echogenic and heterogenous. Appears lobular. Gallbladder: wnl Evidence for sonographic Barba's sign: neg CBD: wnl Spleen: wnl Right Kidney: No hydronephrosis or masses seen, suboptimal visualization Left Kidney: No hydronephrosis or masses seen, suboptimal visualization Upper IVC: wnl Abd Aorta: Distal not visualized due to overlying bowel gas The intrahepatic portion of the IVC and proximal abdominal aorta are within normal limits. There is no evidence of cholelithiasis. Common bile duct is unremarkable. The visualized portions of the bucio creas are homogenous. The spleen is unremarkable. Kidneys are symmetric and free of hydronephrosis. No renal lesions are seen. IMPRESSION: 1. Coarsened echotexture of the hepatic parenchyma with lobular contour. Correlate with liver functio n tests to exclude early cirrhosis. 2. Mildly dilated pancreatic duct is an abnormal finding and further evaluation with MRCP with and wi thout contrast is recommended. 3. Suboptimally visualized kidneys and pancreatic head as well as distal abdominal aorta due to overl nabeel bowel gas.
== END | disposition home or self-care (01) ==
LOC: RADUSWWP 10:58
PROVIDERS: ATTEND Internal Medicine
DX: K86.89 Other specified diseases of pancreas (principal)
CPT/HCPCS: 76700

== ENCOUNTER → 2019-06-01 | Outpatient (CLI) | payer MEDICARE | END | disposition home or self-care (01) | LOC: CPPFTMAIN 12:54 | PROVIDERS: ATTEND Internal Medicine Critical Care Medicine | DX: J43.9 Emphysema, unspecified (principal); R94.2 Abnormal results of pulmonary function studies | CPT/HCPCS: 94060; 94726; 94729 ==

== ENCOUNTER → 2019-06-01 | Outpatient (CLI) | payer MEDICARE | END | disposition home or self-care (01) | LOC: LABPAT 13:53 | PROVIDERS: ATTEND Orthopaedic Surgery | DX: Z01.812 Encounter for preprocedural laboratory examination (principal) | CPT/HCPCS: 87070 ==

== ENCOUNTER 2019-06-20 08:00 | Inpatient (IN) | payer MEDICARE ==
--- NOTE | 2019-06-19 09:27 | HP ---
HISTORY AND PHYSICAL CHIEF COMPLAINT: Right shoulder pain. HISTORY OF PRESENT ILLNESS: The patient is a 78-year-old, right-hand dominant, retired female who presents with progressive right shoulder pain over the past year and a half. She notes significant pain with any attempt at overhead use. She is also having significant night symptoms. She has tried recent injections without much relief. She has also tried medications. She had a previous right shoulder arthroscopy in October of this year with worsening of her symptoms. PAST MEDICAL HISTORY: Significant for arthritis, anxiety, breast cancer, depression, hypercholesterolemia, COPD, hypertension, and skin cancer. PAST SURGICAL HISTORY: Significant for left mastectomy, right total knee arthroplasty, right shoulder arthroscopy, and hysterectomy. CURRENT MEDICATIONS: 1. Advair. 2. Albuterol. 3. Aspirin. 4. Atenolol. 5. Atorvastatin. 6. Spiriva. 7. Ventolin. 8. Verapamil. 9. Voltaren Gel. ALLERGIES: She denies drug allergies. FAMILY HISTORY: Significant for heart disease and cancer. SOCIAL HISTORY: Significant for one pack per day tobacco use. REVIEW OF SYSTEMS: Sixteen-point review of systems otherwise reviewed and is noncontributory. PHYSICAL EXAMINATION: On examination, the patient is approximately 5 feet 7 inches, 170 pounds of endomorphic habitus. HEENT exam is nonfocal. Neck is supple. On examination of her right shoulder, she is tender about the anterior subacromial space in the anterior glenohumeral joint. Moderate subacromial crepitus is noted. Active range of motion forward elevation 65 degrees, external rotation with arm at side 25 degrees, internal rotation to L4. Passively, I am able to forward elevate her to 100 degrees. Motor strength is 4 minus over 5 for abduction and external rotation. Impingement test, Neer test, and Speed tests are positive. Her distal neurovascular exam otherwise appears to be intact in the right upper extremity. X-rays to include AP and scapular outlet views of the right shoulder obtained in the office show severe glenohumeral joint osteoarthrosis with [id number] changes. Previous MRI of the right shoulder from 11/30/2017 shows evidence of rotator cuff tendinosis. IMPRESSION: 1. Right severe glenohumeral joint osteoarthrosis. 2. History of breast cancer, status post left mastectomy. RECOMMENDATIONS: I talked to the patient at length regarding her condition along with treatment options. At this point, she is quite symptomatic and opts to proceed with surgery. We will plan to proceed with right total shoulder arthroplasty versus reverse arthroplasty. We will institute DVT prophylaxis postoperatively. The patient underwent preoperative pulmonary and medical evaluation along with cardiac evaluation. ROBBIN / ROSANNA: [id number] /
[~2019-06-20 08:00] MED LIST changes: +ACETAMINOPHEN TAB 500 MG TAB PO ONE; +DEXAMETHASONE SOD PHOSPHATE 10 MG/ML 1 ML VIAL IV ONE; +HYDROmorphone 0.5 MG/0.5 ML SYRINGE IVP PRN; +MELOXICAM 7.5 MG TAB PO ONE; -MIDAZOLAM (PF) 2 MG/2 ML VIAL IV PRN; +MIDAZOLAM 2 MG/2 ML VIAL IV PRN; +ONDANSETRON 4 MG/2 ML VIAL IVP ONE; -Pre Op ABX Message 1 EACH MISC MISCELLANE ONE; +TRANEXAMIC ACID 1,000 MG in SODIUM CHLORIDE 0.9% 100 ML IVPB ONE
[2019-06-20] MEDS: LACTATED RINGERS 1,000 ML IV SCH (13:53)
[2019-06-20] MEDS ORDERED: LIDOCAINE 1% 20 ML VIAL (10MG/ML) FOR IV START INTRADERMA ONE (13:53)
[2019-06-20] MEDS ORDERED: fentaNYL (PF) 50 MCG/ML 2 ML AMP IVP ONE (14:26)
--- NOTE | 2019-06-20 15:04 | P.ANPRN ---
Procedure Note - Anesthesia - Nerve Block Performed Right Interscalene Single Date of Procedure: 06/20/19 Procedure Start Time: 14:25 Procedure Stop Time: 14:36 Location of Patient: PreOp Indication: Acute Post-Operative Pain Specifically requested for management of pain by DrPérez: Sedrick Le Sedation Type: Sedate with meaningful contact maintained Preparation: Sterile Prep Position: Supine Catheter: None Needle Types: Pajunk Needle Gauge: 21 Ultrasound used to visualize needle placement: Yes Ultrasound used to observe medication spread: Yes Injectate: 0.5% Ropivacaine (see comment for volume) (20 cc) Blood Aspirated: Yes Pain Paresthesia on Injection Noted: Yes Resistance on Injection: Normal Image Stored and Saved: Yes Events: Uneventful and Well Tolerated
[2019-06-20] MEDS ORDERED: ROPIVACAINE 5 MG/ML 30 ML VIAL ONE (16:51)
[2019-06-20] MEDS ORDERED: SUCCINYLCHOLINE CHLORIDE 100 MG/5 ML SYR IV ONE (16:51)
[2019-06-20] MEDS ORDERED: MIDAZOLAM 2 MG/2 ML VIAL ONE (16:51)
[2019-06-20] MEDS ORDERED: PROPOFOL 10 MG/ML 20 ML VIAL IV ONE (16:51)
[2019-06-20] MEDS ORDERED: fentaNYL (PF) 50 MCG/ML 2 ML AMP ONE (16:51)
[2019-06-20] MEDS ORDERED: NEOSTIGMINE 1 MG/ML 10 ML VIAL ONE (16:51)
[2019-06-20] MEDS ORDERED: PHENYLEPHRINE-0.9% NACL SYG 1 MG/10 ML SYRINGE ONE (16:51)
[2019-06-20] MEDS ORDERED: GLYCOPYRROLATE 0.2 MG/ML 2 ML VIAL ONE (16:51)
[2019-06-20] MEDS ORDERED: LIDOCAINE 1% INJ 10MG/ML (20 ML MDV) ONE (16:51)
[2019-06-20] MEDS ORDERED: ROCURONIUM BROMIDE 10 MG/ML 10 ML VIAL IV ONE (16:51)
[2019-06-20] MEDS ORDERED: ceFAZolin 1,000 MG in SODIUM CHLORIDE 0.9% 1,000 ML IRRIGATION ONE (17:31)
[2019-06-20] MEDS ORDERED: LACTATED RINGERS 1,000 ML IV ONE (18:45)
[2019-06-20] MEDS ORDERED: HYDROmorphone 0.5 MG/0.5 ML SYRINGE IVP PRN (18:52)
[2019-06-20] MEDS ORDERED: HYDROcodone/APAP 5-325MG 1 EACH TAB PO PRN (18:52)
[2019-06-20] MEDS ORDERED: ONDANSETRON 4 MG/2 ML VIAL IVP PRN (18:52)
[2019-06-20] MEDS ORDERED: SENNOSIDES-DOCUSATE SODIUM 1 EACH TAB PO PRN (18:52)
[2019-06-20] MEDS ORDERED: ACETAMINOPHEN TAB 325 MG TAB PO PRN (18:56)
--- NOTE | 2019-06-20 19:21 | P.OP ---
Date of Procedure: 06/20/19 Preoperative Diagnosis: Severe right glenohumeral joint osteoarthrosis Postoperative Diagnosis: Same Procedure(s) Performed: Right total shoulder arthroplasty Implants: [employer] size 12 standard press-fit humeral stem, size 12 body, 44 x 18 [place] eccentric humeral head, 44 mm central pegcemented glenoid. Anesthesia: otto CHU Surgeon: Sedrick Le Nail Technician #1: Jonathan Martini Estimated Blood Loss (ml): 200 Pathology: other (Humeral head) Condition: stable Disposition: PACU Indications for Procedure: The patient's a 78-year-old female who presents with progressive right shoulder pain secondary to severe osteoarthrosis despite conservative measures. A discussion of the risks and benefits of operative intervention versus continued conservative measures was made with patient. She opted to proceed with surgery. Operative risks to include infection, neurovascular injury, component loosening, component failure, and possible need for subsequent procedures was discussed. Informed consent was obtained. Operative Findings: As below Description of Procedure: The patient was brought to the operating room, and after induction of general anesthesia was placed in the beachchair position. The bony prominences were appropriately padded. The right upper extremity was prepped and draped in normal fashion. A deltopectoral incision was then made lateral to the coracoid process extending approximately 12 cm. The skin was incised sharply. Subcutaneous tissues were divided bluntly. Electrocautery was used for hemostasis. The deltopectoral interval was identified and the cephalic vein gently retracted laterally with the deltoid. Subdeltoid adhesions were bluntly dissected. A self-retaining retractor was placed. The clavipectoral fascia was opened and the conjoined tendon gently retracted medially. The upper one third of the pectoralis major was released to help facilitate exposure. The biceps was identified and the sheath was opened. The rotator interval was opened. The biceps was tenotomized and allowed to retract distally. The lesser tuberosity osteotomy was performed with a small sagittal saw. This completed with an oste otome. The humeral head was then exposed releasing the capsule off the humeral neck. The shoulder was gently dislocated. A starting hole was made in the head in line with the humeral shaft. The shaft was reamed by hand up to 12 mm. There is good distal chatter. The cutting guide was placed planning on a flush with the rotator cuff insertion and 30 of retroversion. The cutting block was pinned in place. The humeral head cut was then made. This measured most appropriately at 44 x 18 mm. Residual inferior osteophytes were carefully removed flush with the [place] cortical bone. A posterior glenoid retractor was placed. The glenoid was then exposed releasing the labrum from the 12:00 to 6 o'clock position. Residual labral tissue was removed. The glenoid sized most appropriate a 40mm. A guidewire was then inserted planning on the appropriate version. The glenoid was reamed down to a bleeding bony surface. The central pedicle was drilled. The alignment guide was placed in the peripheral peg holes drilled. The trial size 40 mm glenoid was placed and was fully seated. There was good anterior to posterior and inferior to superior fit. The trial component was removed. Pulsatile lavage was utilized. The bony surface was dried. The peripheral peg holes were then pressurized with cement utilizing a syringe. Excess cement was removed. A central peg glenoid was then placed and was fully seated. This was gently impacted. This was held in place until the cement had sufficiently hardened. Attention was then paid again towards preparing the proximal humerus. The appropriate broach was placed in 30 of retroversion and was fully seated. An eccentric 44 x 18 mm humeral head was placed. The shoulder was gently reduced. It was taken through a range of motion. It was felt to be stable in flexion and extension with internal and external rotation. I felt there was adequate judaism of soft tissue tension. The shoulder was gently dislocated. The trial components were then removed. The final size 12 standard humeral stem was inserted in 30 of retroversion was fully seated. There is good rotational stability. A #2 Ethibond was placed laterally for reattachment of the lesser tuberosity. The humeral stem was inserted in 30 of retroversion and was fully seated. There was good rotational stability. The eccentric 44 x 18 mm humeral head was gently impacted. The shoulder was then gently reduced and taken through range of motion and was felt to be stable. Pulsatile lavage was utilized. Lesser tuberosity was reattached utilizing #2 Ethibond suture. The rotator interval was closed with #2 Ethibond suture. She had minimal drainage at this point therefore a deep drain was not placed. The deltopectoral interval was closed with interrupted 2-0 Vicryl sutures. The subcu tissues were reapproximated with interrupted 2-0 Vicryl sutures. The skin was reprepped with 3-0 subcuticular Prolene suture. Steri-Strips were applied. A sterile dressing was applied in addition to a sling. The patient was then awoken from general anesthesia and transferred to recovery room in good condition. Blood loss was estimated at 200 mL. No complications were incurred. Sponge and needle counts were correct at the end the case. Moustapha CHOW assisted during the major components of the case to include exposure, bony resection, implantation, and closure.
--- NOTE | 2019-06-20 19:28 | XR ---
EXAMINATION TYPE: XR shoulder limited RT DATE OF EXAM: 06/20/2019 COMPARISON: NONE HISTORY: Postop shoulder surgery TECHNIQUE: Single view FINDINGS: There is right shoulder prosthesis. Components are in anatomic position. IMPRESSION: No complicating process seen.
[2019-06-20 20:03] VITALS: BMI 32.3
[2019-06-20] MEDS ORDERED: SYMBICORT 80-4.5 MCG INHALER INHALATION PRN (21:55)
[2019-06-20] MEDS ORDERED: DICLOFENAC SODIUM GEL 100 GM TUBE TOPICAL PRN (21:55)
[2019-06-20] MEDS ORDERED: IPRATROPIUM 0.5 MG/2.5 ML NEBU INHALATION PRN (21:55)
[2019-06-20] MEDS ORDERED: ALBUTEROL NEBULIZED 2.5 MG/3 ML INHALATION PRN ×2 (21:55)
[2019-06-20] MEDS ORDERED: NON FORMULARY DRUG (Folic Acid [Folic Acid] 0.4 MG) PO SCH (22:00)
[2019-06-20] MEDS: CHLORTHALIDONE 25 MG TAB PO SCH (22:26)
[2019-06-20] MEDS: CHOLECALCIFEROL 1,000 UNIT TAB PO SCH (22:27)
[2019-06-20] MEDS: buPROPion XL 150 MG TAB.ER.24H PO SCH (22:27)
[2019-06-20] MEDS: POTASSIUM CHLORIDE ER 10 MEQ TAB.ER.PRT PO SCH (22:27)
[2019-06-20] MEDS: POTASSIUM CHLORIDE ER 20 MEQ TAB.ER PO SCH (22:27)
[2019-06-20] MEDS: ATENOLOL 50 MG TAB PO SCH (22:27)
[2019-06-20] MEDS: ATORVASTATIN 20 MG TAB PO SCH (22:27)
[2019-06-20] MEDS: PHENAZOPYRIDINE 100 MG TAB PO SCH (22:27)
[2019-06-20] MEDS: CYANOCOBALAMIN 500 MCG TAB PO SCH (22:27)
[2019-06-20] MEDS: VERAPAMIL 40 MG TAB PO SCH (22:28)
[2019-06-21] MEDS: LACTATED RINGERS 1,000 ML IV SCH ×2 (04:48→20:51)
[2019-06-21] MEDS: CYANOCOBALAMIN 500 MCG TAB PO SCH (08:12)
[2019-06-21] MEDS: ASPIRIN 325 MG TAB PO SCH (08:12)
[2019-06-21] MEDS: traMADol 50 MG TAB PO PRN (08:12)
[2019-06-21 08:23] LABS: Basophils # (A) 0.1 k/uL (0-0.2); Basophils % (A) 0 %; Eosinophils % (A) 0 %; HCT 42.1 % (34.0-46.0); HGB 15.2 gm/dL (11.4-16.0); Lymphocytes # (A) 2.2 k/uL (1.0-4.8); Lymphocytes % (A) 15 %; MCH 32.5 pg (25.0-35.0); MCHC 36.1 g/dL (31.0-37.0); MCV 90.2 fL (80.0-100.0); Mean Platelet Volume 6.3; Monocytes # (A) 1.1 k/uL (0-1.0); Monocytes % (A) 8 %; Neutrophils % (A) 76 %; Platelet Count 360 k/uL (150-450); RBC 4.66 m/uL (3.80-5.40); RDW 13.3 % (11.5-15.5); WBC 14.5 k/uL (3.8-10.6)
[2019-06-21] MEDS: HYDROcodone/APAP 5-325MG 1 EACH TAB PO PRN ×2 (11:20→17:33)
--- NOTE | 2019-06-21 12:13 | P.PN ---
Subjective Progress Note Date: 06/21/19 Principal diagnosis: Status post right total shoulder arthroplasty Patient evaluated at bedside, she is resting comfortably. Her pain is controlled. She denies any chest pain or shortness of breath. Objective - Vital Signs Vital signs: Vital Signs Temp 98.2 F 06/21/19 07:00 Pulse 57 L 06/21/19 07:00 Resp 17 06/21/19 07:00 BP 150/90 06/21/19 07:00 Pulse Ox 91 L 06/21/19 07:00 Intake & Output 06/20/19 06/21/19 06/21/19 18:59 06:59 18:59 Intake Total 1151 400 Output Total 200 Balance 951 400 Intake: IV 1151 0 Oral 400 Output: Estimated Blood Loss 200 Other: Voiding Method Toilet Toilet Diaper Diaper # Voids 2 1 - Exam Right upper extremity: Postoperative bandage was removed, Steri-Strips and suture are in good position and condition. Minimal soft tissue swelling and ecchymosis. Sensory exam throughout the upper extremities intact, radial pulses 2+ - Labs CBC & Chem 7: 06/21/19 07:12 Labs: Abnormal Lab Results - Last 24 Hours (Table) 06/21/19 Range/Units 07:12 WBC 14.5 H (3.8-10.6) k/uL Neutrophils # 11.0 H (1.3-7.7) k/uL Monocytes # 1.1 H (0-1.0) k/uL Assessment and Plan Plan: Assessment: Postoperative day 1 status post right total shoulder arthroplasty Plan: Pain control, continue current medication GI and DVT prophylaxis, continue current medication Daily dressing changes Icing the shoulder often Medical recommendations Plan for discharge home tomorrow Time with Patient: Less than 30
[2019-06-21] MEDS: VERAPAMIL 40 MG TAB PO SCH ×2 (13:59→20:20)
[2019-06-21 19:05] VITALS: RESP 16
--- NOTE | 2019-06-21 19:12 | P.CONS ---
History of Present Illness - Reason for Consult Consult date: 06/21/19 Medical management Requesting physician: Sedrick Le - Chief Complaint Right shoulder surgery - History of Present Illness Consultation: This is a very pleasant [address] Walter. Chronic stable medical conditions include COPD, silent stroke, GERD, hypertension, hyperlipidemia, osteoarthritis and of the joints, Claude sleep apnea, urinary incontinence. Linda colbert has undergone right total shoulder arthroplasty. Some pain is present. Right arm wrestling. Did tolerate her diet. No chest pain or shoulder no nausea vomiting. Patient long-standing smoker. Review of systems: GEN.: Tired EYES: None HEENT: None NECK: None RESPIRATORY: None CARDIOVASCULAR: None GASTROINTESTINAL: None GENITOURINARY: None MUSCULOSKELETAL: Pain in different joints LYMPHATICS: None HEMATOLOGICAL: None PSYCHIATRY: None NEUROLOGICAL: None Social history: Call occasionally. Smoked a pack a day for close to 52 years, lives alone Family history: 2 sisters had breast cancer, 1 sister with ovarian cancer Physical examination: VITAL SIGNS: 98.2, 57, 17, 150/90, 91% room air GENERAL: BMI 27.4, sitting at the edge of the bed, comfortable. EYES: Pupils equal. Conjunctiva normal. HEENT: External appearance of nose and ears normal, oral cavity grossly normal. NECK: JVD not raised; masses not palpable. HEART: First and second heart sounds are normal; no edema. LUNGS: Respiratory rate normal; decreased breath sounds. ABDOMEN: Soft, nontender, liver spleen not palpable, no masses palpable. PSYCH: Alert and oriented x3; mood and affect normal. NEUROLOGICAL: Cranial nerves grossly intact; no facial asymmetry, power and sensation grossly intact. LYMPHATICS: No lymph nodes palpable in the axilla and neck Musculoskeletal: Right arm wrestling, good movement of the right hand fingers sensation preserved INVESTIGATIONS, reviewed in the clinical context: White count 14.5 hemoglobin 15.2 Assessment: -Right total shoulder arthroplasty -COPD in a current smoker -GERD -Hypertension -Hyperlipidemia -Primary osteoarthritis -Obstructive sleep apnea uses CPAP -Chronic urinary stress incontinence Plan: -Home medications resumed. Patient is reasonably well controlled. Did walk a bit. Did tolerate her diet. Care was discussed with the patient. Questions were answered. Thank you Dr. Méndez: Past Medical History Past Medical History: Cancer, COPD, CVA/TIA, GERD/Reflux, Hyperlipidemia, Hypertension, Osteoarthritis (OA), Sleep Apnea/CPAP/BIPAP Additional Past Medical History / Comment(s): breast ca x2 left breast-received radiation and chemo 2003 & 2008, "silent stroke on MRI"-no residual effects, heart [place], varicose veins, urinary leakage , skin cancer, had elevated WBC's- Dr Horowitz watching, had a fall Mar 2019 History of Any Multi-Drug Resistant Organisms: None Reported Past Surgical History: Breast Surgery, Hysterectomy, Joint Replacement, Orthopedic Surgery Additional Past Surgical History / Comment(s): left breast lumpectomy, repeat breast ca left, had freddie mastectomy with reconstruction-with 1 implant remains and 1 implant removed r/t infection, 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 Past Psychological History: Anxiety, Depression Smoking Status: Current every day smoker Past Alcohol Use History: Occasional Additional Past Alcohol Use History / Comment(s): smokes 1ppd from 1967 Past Drug Use History: None Reported - Past Family History Sister(s) Family Medical History: Cancer Additional Family Medical History / Comment(s): 2 sisters had breast ca, one sister had ovarian ca Daughter(s) Family Medical History: Cancer Additional Family Medical History / Comment(s): breast CA Medications and Allergies Home Medications Medication Instructions Recorded Confirmed Type Atenolol/Chlorthalidone 1 tab PO HS 02/26/17 06/16/19 History [Atenolol-Chlorthalidone 50-25] Atorvastatin [Lipitor] 20 mg PO HS 02/26/17 06/16/19 History Albuterol Inhaler [Ventolin Hfa 2 puff INHALATION RT-Q6H PRN 03/09/17 06/16/19 History Inhaler] Albuterol Nebulized [Ventolin 2.5 mg INHALATION RT-BID PRN 03/09/17 06/16/19 History Nebulized] Cholecalciferol [Vitamin D3 (25 4,000 unit PO HS 03/09/17 06/16/19 History Mcg = 1000 Iu)] Fluticasone/Salmeterol [Advair 1 puff INHALATION DIRECTED PRN 03/09/17 06/16/19 History 250-50 Diskus] Tiotropium [place] [Spiriva] 1 cap INHALATION DIRECTED PRN 03/09/17 06/16/19 History Verapamil HCl 120 mg PO HS 03/09/17 06/16/19 History Cyanocobalamin (Vitamin B-12) 2,000 mcg PO DAILY 11/09/18 06/16/19 History [Vitamin B-12] Diclofenac Sodium [Voltaren Gel] 2 gram TOPICAL DAILY PRN 11/09/18 06/16/19 History Acetaminophen [Tylenol Extra 500 mg PO DIRECTED PRN 06/16/19 06/20/19 History Strength] Aspirin [Adult Low Dose Aspirin EC] 81 mg PO HS 06/16/19 06/16/19 History Folic Acid 0.4 mg PO HS 06/16/19 06/16/19 History Potassium Chloride [Klor-Con 10] 10 meq PO HS 06/16/19 06/16/19 History Potassium Chloride [Klor-Con 20] 20 meq PO HS 06/16/19 06/16/19 History Pyridoxine HCl (Vitamin B6) 100 mg PO HS 06/16/19 06/16/19 History [Vitamin B-6] Verapamil HCl 120 mg PO W/LUNCH 06/16/19 06/20/19 History buPROPion HCL [Wellbutrin XL] 150 mg PO HS 06/16/19 06/16/19 History Allergies Allergy/AdvReac Type Severity Reaction Status Date / Time No Known Allergies Allergy Verified 06/16/19 10:05 Physical Exam Vitals: Vital Signs Temp Pulse Resp BP Pulse Ox 06/21/19 07:00 98.2 F 57 L 17 150/90 91 L 06/21/19 00:28 98.0 F 60 18 111/73 91 L 06/20/19 21:28 132/78 06/20/19 21:13 76 127/76 06/20/19 20:58 76 131/76 06/20/19 20:43 73 157/79 06/20/19 20:28 69 155/76 06/20/19 20:13 64 131/74 06/20/19 19:58 65 17 131/80 88 L 06/20/19 19:43 97.4 F L 71 17 132/79 90 L 06/20/19 19:40 70 16 139/76 94 L 06/20/19 19:27 68 15 149/85 99 06/20/19 19:11 97.0 F L 72 14 153/74 95 06/20/19 14:58 68 16 172/81 97 06/20/19 13:41 97.4 F L 70 18 165/79 97 Intake and Output 06/20/19 06/21/19 06/21/19 22:59 06:59 14:59 Intake Total 1151 Output Total 200 Balance 951 Intake: IV 751 Oral 400 Output: Estimated Blood Loss 200 Other: Voiding Method Toilet Toilet Diaper Diaper # Voids 1 2 1 Results CBC & Chem 7: 06/21/19 07:12 Labs: Abnormal Lab Results - Last 24 Hours (Table) 06/21/19 Range/Units 07:12 WBC 14.5 H (3.8-10.6) k/uL Neutrophils # 11.0 H (1.3-7.7) k/uL Monocytes # 1.1 H (0-1.0) k/uL
[2019-06-21] MEDS: POTASSIUM CHLORIDE ER 20 MEQ TAB.ER PO SCH (20:17)
[2019-06-21] MEDS: ATENOLOL 50 MG TAB PO SCH (20:17)
[2019-06-21] MEDS: POTASSIUM CHLORIDE ER 10 MEQ TAB.ER.PRT PO SCH (20:18)
[2019-06-21] MEDS: CHOLECALCIFEROL 1,000 UNIT TAB PO SCH (20:18)
[2019-06-21] MEDS: buPROPion XL 150 MG TAB.ER.24H PO SCH (20:22)
[2019-06-21] MEDS: ATORVASTATIN 20 MG TAB PO SCH (20:22)
[2019-06-21] MEDS: CHLORTHALIDONE 25 MG TAB PO SCH (20:23)
[2019-06-21] MEDS: PHENAZOPYRIDINE 100 MG TAB PO SCH (20:24)
[2019-06-21] MEDS: NICOTINE 21MG/24HR PATCH TRANSDERM SCH (21:51)
[2019-06-22] MEDS: HYDROcodone/APAP 5-325MG 1 EACH TAB PO PRN ×3 (01:49→14:00)
[2019-06-22 07:14] VITALS: BP 135/73; PULSE 63; TEMP 97.5
[2019-06-22] MEDS: NICOTINE 21MG/24HR PATCH TRANSDERM SCH (07:19)
[2019-06-22] MEDS: ASPIRIN 325 MG TAB PO SCH (07:19)
[2019-06-22] MEDS: CYANOCOBALAMIN 500 MCG TAB PO SCH (07:19)
[2019-06-22] MEDS: traMADol 50 MG TAB PO PRN (11:29)
[2019-06-22] MEDS: VERAPAMIL 40 MG TAB PO SCH (11:30)
--- NOTE | 2019-06-22 12:43 | P.PN ---
Subjective Progress Note Date: 06/22/19 Principal diagnosis: Status post right total shoulder arthroplasty Patient evaluated at bedside, she is resting comfortably. Her pain is controlled. She denies any chest pain or shortness of breath. Objective - Vital Signs Vital signs: Vital Signs Temp 97.5 F L 06/22/19 07:12 Pulse 63 06/22/19 07:12 Resp 16 06/22/19 07:30 BP 135/73 06/22/19 07:12 Pulse Ox 86 L 06/22/19 07:12 Intake & Output 06/21/19 06/22/19 06/22/19 18:59 06:59 18:59 Intake Total 180 180 Balance 180 180 Intake: Oral 180 180 Other: Voiding Method Toilet Toilet Toilet Diaper Diaper Diaper # Voids 1 1 - Exam Right upper extremity: Steri-Strips and suture are in good position and condition. Minimal soft tissue swelling and ecchymosis. Sensory exam throughout the upper extremities intact, radial pulses 2+ - Labs CBC & Chem 7: 06/21/19 07:12 Assessment and Plan Plan: Assessment: Postoperative day #2 status post right total shoulder arthroplasty Plan: Pain control, plan for discharge on oral medication GI and DVT prophylaxis, aspirin 325 daily Daily dressing changes Icing the shoulder often Medical recommendations Discharge today Time with Patient: Less than 30
--- NOTE | 2019-06-22 12:46 | P.DS ---
Providers Date of admission: 06/20/19 13:14 Expected date of discharge: 06/22/19 Attending physician: Sedrick Le Consults: 06/20/19 18:52 Consult Physician Routine Consulting Provider: Viktor Walter Reason/Comments: Medical Management Do you want consulting provider notified?: Yes Primary care physician: Viktor Walter [place] [facility] Course: Date of admission: 06/20/2019 Date of discharge: 06/22/2019 Admission diagnosis: Status post right total shoulder arthroplasty Discharge diagnosis: Same Attending physician: Dr. Le Surgical procedures: Right total shoulder arthroplasty Brief history: Patient is a 78-year-old female with a history of progressive primary right shoulder osteoarthritis. At this point patient has failed conservative treatment measures and has opted to proceed with a elective right total shoulder arthroplasty. Hospital course: Details of patient's surgery can be found in operative report. Patient tolerated the procedure well and was subsequently transported to orthopedic floor. Patient's orthopeidc and medical care was provided daily. Patient had daily laboratory tests performed for evaluation of overall blood counts. Patient had daily physical therapy to include strengthening range of motion as well as education with walker ambulation. Patient was treated with aspirin for their postoperative DVT prophylaxis during their inpatient stay. Patient was noted to have a relatively uneventful postoperative course. Patient reported satisfactory pain control with oral pain medications by postoperative day 0. Patient showed satisfactory progress with physical therapy. Patient moved steadily through the program and had no difficulty meeting the goals by postoperative day 2. Given patient's otherwise satisfactory course and having met physical therapy goals, plan is to discharge patient home on postoperative day 2. Discharge condition/disposition: Patient will be discharged home in stable condition. Discharge medications: Instructions are given on resumption of patient's normal daily medications per primary care recommendation, in addition patient will be prescribed [place] 5mg/325mg, aspirin 325mg Discharge instructions: 1. Wound care and infection precautions, keep incision dry and covered while showering, no lotions, creams, moisturizers. No soaking, tubs, pools, hottubs. Do not scrub over the incision. 2. Utilize arm sling 3. Ice and elevate when necessary. Do not exceed 20 minutes per hour with ice pack. 4. Utilize compression sleeve until seen at first follow up appointment. 7. Pain meds and anticoagulants per prescription. 8. Pain medication has potential to cause constipation. Increase oral fluid and fiber intake. Contact primary care provider if you have not had a bowel movement within 48 hours after discharge 9. No anti-inflammatory medication until discussed at first post operative visit, this including Motrin, Aleve, Mobic, Diclofenac 10. Follow up in office at 2 weeks postop with Moustapha Martini PA-C 11. Follow up with your primary care doctor 7-10 days after discharge. 12. Contact [facility] with any questions, . Procedures: Right total shoulder arthroplasty Patient Condition at Discharge: Good Plan - Discharge Summary Discharge Rx Participant: No New Discharge Prescriptions: New Aspirin 325 mg PO DAILY #30 tab Hydrocodone/Acetaminophen [[place] 5-325] 1 - 2 each PO Q6HR PRN #40 tab PRN Reason: Pain No Action Atorvastatin [Lipitor] 20 mg PO HS Atenolol/Chlorthalidone [Atenolol-Chlorthalidone 50-25] 1 tab PO HS Fluticasone/Salmeterol [Advair 250-50 Diskus] 1 puff INHALATION DIRECTED PRN PRN Reason: Shortness Of Breath Albuterol Inhaler [Ventolin Hfa Inhaler] 2 puff INHALATION RT-Q6H PRN PRN Reason: Shortness Of Breath Tiotropium [place] [Spiriva] 1 cap INHALATION DIRECTED PRN PRN Reason: sob Cholecalciferol [Vitamin D3 (25 Mcg = 1000 Iu)] 4,000 unit PO HS Verapamil HCl 120 mg PO HS Albuterol Nebulized [Ventolin Nebulized] 2.5 mg INHALATION RT-BID PRN PRN Reason: Shortness Of Breath Cyanocobalamin (Vitamin B-12) [Vitamin B-12] 2,000 mcg PO DAILY Diclofenac Sodium [Voltaren Gel] 2 gram TOPICAL DAILY PRN PRN Reason: Pain Verapamil HCl 120 mg PO W/LUNCH Pyridoxine HCl (Vitamin B6) [Vitamin B-6] 100 mg PO HS Potassium Chloride [Klor-Con 10] 10 meq PO HS Potassium Chloride [Klor-Con 20] 20 meq PO HS Folic Acid 0.4 mg PO HS buPROPion HCL [Wellbutrin XL] 150 mg PO HS Aspirin [Adult Low Dose Aspirin EC] 81 mg PO HS Acetaminophen [Tylenol Extra Strength] 500 mg PO DIRECTED PRN PRN Reason: Pain Discharge Medication List Atenolol/Chlorthalidone [Atenolol-Chlorthalidone 50-25] 1 tab PO HS 02/26/17 [History] Atorvastatin [Lipitor] 20 mg PO HS 02/26/17 [History] Albuterol Inhaler [Ventolin Hfa Inhaler] 2 puff INHALATION RT-Q6H PRN 03/09/17 [History] Albuterol Nebulized [Ventolin Nebulized] 2.5 mg INHALATION RT-BID PRN 03/09/17 [History] Cholecalciferol [Vitamin D3 (25 Mcg = 1000 Iu)] 4,000 unit PO HS 03/09/17 [History] Fluticasone/Salmeterol [Advair 250-50 Diskus] 1 puff INHALATION DIRECTED PRN 03/09/17 [History] Tiotropium [place] [Spiriva] 1 cap INHALATION DIRECTED PRN 03/09/17 [History] Verapamil HCl 120 mg PO HS 03/09/17 [History] Cyanocobalamin (Vitamin B-12) [Vitamin B-12] 2,000 mcg PO DAILY 11/09/18 [History] Diclofenac Sodium [Voltaren Gel] 2 gram TOPICAL DAILY PRN 11/09/18 [History] Acetaminophen [Tylenol Extra Strength] 500 mg PO DIRECTED PRN 06/16/19 [History] Aspirin [Adult Low Dose Aspirin EC] 81 mg PO HS 06/16/19 [History] Folic Acid 0.4 mg PO HS 06/16/19 [History] Potassium Chloride [Klor-Con 10] 10 meq PO HS 06/16/19 [History] Potassium Chloride [Klor-Con 20] 20 meq PO HS 06/16/19 [History] Pyridoxine HCl (Vitamin B6) [Vitamin B-6] 100 mg PO HS 06/16/19 [History] Verapamil HCl 120 mg PO W/LUNCH 06/16/19 [History] buPROPion HCL [Wellbutrin XL] 150 mg PO HS 06/16/19 [History] Aspirin 325 mg PO DAILY #30 tab 06/22/19 [Rx] Hydrocodone/Acetaminophen [[place] 5-325] 1 - 2 each PO Q6HR PRN #40 tab 06/22/19 [Rx] Follow up Appointment(s)/Referral(s): Viktor Walter DO [Primary Care Provider] - 1 Week Jonathan Martini PAC [PHYSICIAN PRODUCTION BROACHER] - 07/05/19 3:00 pm Activity/Diet/Wound Care/Special Instructions: Orthopedic discharge instructions: 1. Utilize arm sling 2. Ice the shoulder off 3. Keep incision dry and covered while showering 4. Plan for follow-up in 2 weeks Discharge Disposition: HOME SELF-CARE
--- NOTE | 2019-06-26 16:02 | P.PN ---
Progress Note - Text Progress Note Date: 06/22/19 - Chief Complaint Right shoulder surgery Interim history: This is a very pleasant 78-year-old patient of Dr. Walter. Chronic stable medical conditions include COPD, silent stroke, GERD, hypertension, hyperlipidemia, osteoarthritis and of the joints, Claude sleep apnea, urinary incontinence. Patient has undergone right total shoulder arthroplasty. Today-pain is present with right shoulder. No new other issues. Did tolerate her diet. Up to the bathroom. No chest pain shortness of breath. Review of systems: Was done for constitutional, cardiovascular, GI, pulmonary. relevant finding as above Current medications are reviewed from today's electronic records Physical examination: VITAL SIGNS: 97.5, 63, 16, 135/73, 90% room air GENERAL: BMI 27.4, sitting up, comfortable. EYES: Pupils equal. Conjunctiva normal. HEENT: External appearance of nose and ears normal, oral cavity grossly normal. NECK: JVD not raised; masses not palpable. HEART: First and second heart sounds are normal; no edema. LUNGS: Respiratory rate normal; decreased breath sounds. ABDOMEN: Soft, nontender, liver spleen not palpable, no masses palpable. PSYCH: Alert and oriented x3; mood and affect normal. Musculoskeletal: Right arm in a sling, good movement of the right hand fingers sensation preserved INVESTIGATIONS, reviewed in the clinical context: White count 14.5 hemoglobin 15.2 Assessment: -Right total shoulder arthroplasty -COPD in a current smoker -GERD -Hypertension -Hyperlipidemia -Primary osteoarthritis -Obstructive sleep apnea uses CPAP -Chronic urinary stress incontinence Plan: Stable. Continue current medication treatment plan. Thank you Dr. Méndez:
== END 2019-06-22 14:09 | disposition home or self-care (01) | DRG 483 ==
LOC: 2ORMAIN 13:14 → 4SSUR 18:59
PROVIDERS: ADMIT Orthopaedic Surgery; ATTEND Orthopaedic Surgery
PROC: 0RRJ0JZ Replacement of Right Shoulder Joint with Synthetic Substitute, Open Approach (ICD-10-PCS; principal; 2019-06-20 15:10)
DX: M19.011 Primary osteoarthritis, right shoulder (principal); E78.00 Pure hypercholesterolemia, unspecified; E78.5 Hyperlipidemia, unspecified; F17.200 Nicotine dependence, unspecified, uncomplicated; G47.33 Obstructive sleep apnea (adult) (pediatric); I10 Essential (primary) hypertension; J44.9 Chronic obstructive pulmonary disease, unspecified; K21.9 Gastro-esophageal reflux disease without esophagitis; N39.3 Stress incontinence (female) (male); Z96.651 Presence of right artificial knee joint; Z79.82 Long term (current) use of aspirin; Z79.899 Other long term (current) drug therapy; Z80.3 Family history of malignant neoplasm of breast; Z80.41 Family history of malignant neoplasm of ovary; Z85.3 Personal history of malignant neoplasm of breast; Z85.828 Personal history of other malignant neoplasm of skin; Z86.73 Personal history of transient ischemic attack (TIA), and cerebral infarction without residual deficits; Z90.12 Acquired absence of left breast and nipple; Z90.710 Acquired absence of both cervix and uterus; Z92.21 Personal history of antineoplastic chemotherapy; Z92.3 Personal history of irradiation
CPT/HCPCS: 64415; 76942; 85025; 88305; 88311

== ENCOUNTER 2020-02-12 15:24 | Inpatient (IN) | payer MEDICARE ==
[2020-02-12] MEDS ORDERED: SODIUM CHLORIDE 0.9% 500 ML 500 ML IV STA (15:31)
--- NOTE | 2020-02-12 15:34 | ED ---
General Adult HPI - General Stated complaint: Stroke Time Seen by Provider: 02/12/20 15:30 Source: patient Mode of arrival: ambulatory Limitations: no limitations - History of Present Illness Initial comments: Dictation was produced using [employer] dictation software. please excuse any grammatical, word or spelling errors. This patient was cared for during a federal and state declared state of emergency secondary to Covid 19 Chief Complaint: 79-year-old female past medical history of breast cancer COPD dyslipidemia hypertension presents with acute onset facial weakness. History of Present Illness: 79-year-old feel presents with facial weakness starting at approximately 1 PM today. According to EMS they were called for strokelike symptoms. Patient states that around 1 she develop acute onset facial weakness. She was last seen normal by family members at approximately 1 PM. 1:30 she had a phone call with one of her family members and they noted th at she did have some slight slurring of her speech. Patient denies any history of stroke. She does have a history of breast cancer and is actively undergoing cancer treatment. Denies any numbness tingling or paresthesias. Patient is unreliable historian. The ROS documented in this emergency department record has been reviewed and confirmed by me. Those systems with pertinent positive or negative responses have been documented in the HPI. All other systems are other negative and/or noncontributory. PHYSICAL EXAM: General Impression: Alert and oriented x3, not in acute distress HEENT: Normocephalic atraumatic, extra-ocular movements intact, pupils equal and reactive to light bilaterally, mucous membranes moist, lacrimation to the left eye Cardiovascular: Heart regular rate and rhythm Chest: Able to complete full sentences, no retractions, no tachypnea Abdomen: abdomen soft, non-tender, non-distended, no organomegaly Musculoskeletal: Pulses present and equal in all extremities, no peripheral edema Motor: no focal deficits noted Neurological: Left lower facial weakness, not aphasic, mild dysarthria, no drift to the left lower extremity. No sensory deficits. Mild left periorbital weakness. Skin: Intact with no visualized rashes Psych: Normal affect and mood ED course: 79-year-old female multiple comorbidities presents with strokelike symptoms starting at around 1 PM. Patient was last seen normal at 1 PM by her family members. NIH score of 3. She is not aphasic. She does not have any contraindications for TPA administration. Code stroke paged. At approximately 3:49 PM case discussed with Dr. Mclean's signs sales representative over the phone. Dr. Mclean callback states that he was having issues accessing radiographic images for review.Patient reevaluated at bedside she does not have any drift. She does not have any sensory deficits. She still however has left facial droop. Considering that patient's symptoms are improving since time of onset and patient's low NIH score patient will not be administered tPA. Laboratory evaluation obtained. Leukocytosis of 14.4, hemoglobin of 17.6. Coag panel is unremarkable. Metabolic panel is negative. Cardiac enzymes negative. Computed tomography scan of the brain shows no acute processes. CT angios of the head and neck shows no large vessel occlusion. Chest x-rays unremarkable. Daughter at bedside reports that patient had significant weakness to the left upper extremity prior to coming to the emergency department. Patient given aspirin. Patient be admitted to [facility] with consultation to neurology. Patient understandable and agreeable with disposition. She is not a candidate for thrombectomy given that there is a large vessel occlusion. EKG interpretation: Ventricular rate 77, normal sinus,. Interval 90, QRS 90, QTC 482. No MS prolongation, no QTC prolongation, no ST or T-wave changes noted. EKG compared to 02/19/2017 showing no changes. Overall, this EKG is unremarkable - Related Data Home Medications Medication Instructions Recorded Confirmed Atenolol/Chlorthalidone 1 tab PO HS 02/26/17 06/16/19 [Atenolol-Chlorthalidone 50-25] Atorvastatin [Lipitor] 20 mg PO 02/26/17 06/16/19 Albuterol Inhaler (Mhu) [Ventolin 2 puff INHALATION RT-Q6H PRN 03/09/17 06/16/19 Hfa Inhaler (Mhu)] Albuterol Nebulized [Ventolin 2.5 mg INHALATION RT-BID PRN 03/09/17 06/16/19 Nebulized] Cholecalciferol [Vitamin D3 (25 4,000 unit PO HS 03/09/17 06/16/19 Mcg = 1000 Iu)] Fluticasone/Salmeterol [Advair 1 puff INHALATION DIRECTED PRN 03/09/17 06/16/19 250-50 Diskus] Tiotropium [place] [Spiriva] 1 cap INHALATION DIRECTED PRN 03/09/17 06/16/19 Verapamil HCl [Calan] 120 mg PO HS 03/09/17 06/16/19 Cyanocobalamin (Vitamin B-12) 2,000 mcg PO DAILY 11/09/18 06/16/19 [Vitamin B-12] Diclofenac Sodium [Voltaren Gel] 2 gram TOPICAL DAILY PRN 11/09/18 06/16/19 Acetaminophen [Tylenol Extra 500 mg PO DIRECTED PRN 06/16/19 06/20/19 Strength] Aspirin [Adult Low Dose Aspirin EC] 81 mg PO HS 06/16/19 06/16/19 Folic Acid 0.4 mg PO HS 06/16/19 06/16/19 Potassium Chloride [Klor-Con 10] 10 meq PO HS 06/16/19 06/16/19 Potassium Chloride [Klor-Con 20] 20 meq PO HS 06/16/19 06/16/19 Pyridoxine HCl (Vitamin B6) 100 mg PO HS 06/16/19 06/16/19 [Vitamin B-6] Verapamil HCl [Calan] 120 mg PO W/LUNCH 06/16/19 06/20/19 buPROPion HCL [Wellbutrin XL] 150 mg PO HS 06/16/19 06/16/19 Previous Rx's Medication Instructions Recorded Aspirin 325 mg PO DAILY #30 tab 06/22/19 Hydrocodone/Acetaminophen [[place] 1 - 2 each PO Q6HR PRN #40 tab 06/22/19 5-325] Allergies Allergy/AdvReac Type Severity Reaction Status Date / Time No Known Allergies Allergy Verified 02/12/20 15:28 Review of Systems ROS Statement: Those systems with pertinent positive or pertinent negative responses have been documented in the HPI. ROS Other: All systems not noted in ROS Statement are negative. 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" Past Anesthesia/Blood Transfusion Reactions: No Reported Reaction Additional Past Anesthesia/Blood Transfusion Reaction / Comment(s): no hx blood transfusion Past Psychological History: Depression Smoking Status: Current every day smoker Past Alcohol Use History: None Reported Past Drug Use History: None Reported - Past Family History Sister(s) Family Medical History: Cancer Additional Family Medical History / Comment(s): 2 sisters had breast ca, one sister had ovarian ca Daughter(s) Family Medical History: Cancer Additional Family Medical History / Comment(s): breast CA General Exam Limitations: no limitations Course Vital Signs 02/12/20 02/12/20 02/12/20 15:28 15:30 15:45 Temperature 97.8 F 98 F Pulse Rate 78 69 68 Respiratory 18 18 18 Rate Blood Pressure 169/96 169/96 164/95 O2 Sat by Pulse 92 L 93 L 93 L Oximetry 02/12/20 02/12/20 02/12/20 16:00 16:15 16:30 Temperature Pulse Rate 67 67 70 Respiratory 18 18 18 Rate Blood Pressure 171/100 180/116 149/98 O2 Sat by Pulse 93 L 93 L 95 Oximetry 02/12/20 16:35 Temperature Pulse Rate 70 Respiratory 18 Rate Blood Pressure 167/129 O2 Sat by Pulse 94 L Oximetry Medical Decision Making - Lab Data Result diagrams: 02/12/20 15:29 02/12/20 15:35 Lab Results 02/12/20 02/12/20 02/12/20 Range/Units 15:29 15:29 15:35 WBC 14.4 H (3.8-10.6) k/uL RBC 5.44 H (3.80-5.40) m/uL Hgb 17.6 H (11.4-16.0) gm/dL Hct 49.0 H (34.0-46.0) % MCV 90.1 (80.0-100.0) fL MCH 32.4 (25.0-35.0) pg MCHC 36.0 (31.0-37.0) g/dL RDW 13.1 (11.5-15.5) % Plt Count 332 (150-450) k/uL Neutrophils % 76 % Lymphocytes % 13 % Monocytes % 8 % Eosinophils % 1 % Basophils % 1 % Neutrophils # 11.0 H (1.3-7.7) k/uL Lymphocytes # 1.8 (1.0-4.8) k/uL Monocytes # 1.2 H (0-1.0) k/uL Eosinophils # 0.2 (0-0.7) k/uL Basophils # 0.1 (0-0.2) k/uL PT 10.1 (9.0-12.0) sec INR 1.0 (<1.2) APTT 24.2 (22.0-30.0) sec Sodium (137-145) mmol/L Potassium (3.5-5.1) mmol/L Chloride (98-107) mmol/L Carbon Dioxide (22-30) mmol/L Anion Gap mmol/L BUN (7-17) mg/dL Creatinine (0.52-1.04) mg/dL Est GFR (CKD-EPI)AfAm (>60 ml/min/1.73 sqM) Est GFR (CKD-EPI)NonAf (>60 ml/min/1.73 sqM) Glucose (74-99) mg/dL POC Glucose (mg/dL) 140 H (75-99) mg/dL POC Glu Coil Tester ID Marko, Tosin Calcium (8.4-10.2) mg/dL Total Bilirubin (0.2-1.3) mg/dL AST (14-36) U/L ALT (4-34) U/L Alkaline Phosphatase (38-126) U/L Troponin I (0.000-0.034) ng/mL Total Protein (6.3-8.2) g/dL Albumin (3.5-5.0) g/dL 02/12/20 02/12/20 Range/Units 15:35 15:35 WBC (3.8-10.6) k/uL RBC (3.80-5.40) m/uL Hgb (11.4-16.0) gm/dL Hct (34.0-46.0) % MCV (80.0-100.0) fL MCH (25.0-35.0) pg MCHC (31.0-37.0) g/dL RDW (11.5-15.5) % Plt Count (150-450) k/uL Neutrophils % % Lymphocytes % % Monocytes % % Eosinophils % % Basophils % % Neutrophils # (1.3-7.7) k/uL Lymphocytes # (1.0-4.8) k/uL Monocytes # (0-1.0) k/uL Eosinophils # (0-0.7) k/uL Basophils # (0-0.2) k/uL PT (9.0-12.0) sec INR (<1.2) APTT (22.0-30.0) sec Sodium 138 (137-145) mmol/L Potassium 4.0 (3.5-5.1) mmol/L Chloride 102 (98-107) mmol/L Carbon Dioxide 27 (22-30) mmol/L Anion Gap 9 mmol/L BUN 13 (7-17) mg/dL Creatinine 0.98 (0.52-1.04) mg/dL Est GFR (CKD-EPI)AfAm 64 (>60 ml/min/1.73 sqM) Est GFR (CKD-EPI)NonAf 56 (>60 ml/min/1.73 sqM) Glucose 132 H (74-99) mg/dL POC Glucose (mg/dL) (75-99) mg/dL POC Glu Coil Tester ID Calcium 9.9 (8.4-10.2) mg/dL Total Bilirubin 1.3 (0.2-1.3) mg/dL AST 24 (14-36) U/L ALT 20 (4-34) U/L Alkaline Phosphatase 151 H (38-126) U/L Troponin I <0.012 (0.000-0.034) ng/mL Total Protein 7.2 (6.3-8.2) g/dL Albumin 4.2 (3.5-5.0) g/dL Disposition Clinical Impression: Cerebrovascular accident (CVA) Disposition: ADMITTED IP TO THIS HOSP Condition: Fair Referrals: Viktor Walter DO [Primary Care Provider] - 1-2 days Decision Time: 17:25
[2020-02-12 15:42] LABS: Glucose,Whole Blood 140 mg/dL (75-99)
[2020-02-12 15:48] LABS: Basophils # (A) 0.1 k/uL (0-0.2); Basophils % (A) 1 %; Eosinophils # (A) 0.2 k/uL (0-0.7); Eosinophils % (A) 1 %; HGB 17.6 gm/dL (11.4-16.0); Lymphocytes # (A) 1.8 k/uL (1.0-4.8); Lymphocytes % (A) 13 %; MCH 32.4 pg (25.0-35.0); MCV 90.1 fL (80.0-100.0); Mean Platelet Volume 7.5; Monocytes # (A) 1.2 k/uL (0-1.0); Monocytes % (A) 8 %; Neutrophils % (A) 76 %; Platelet Count 332 k/uL (150-450); RBC 5.44 m/uL (3.80-5.40); RDW 13.1 % (11.5-15.5); WBC 14.4 k/uL (3.8-10.6)
[2020-02-12 15:59] LABS: Albumin 4.2 g/dL (3.5-5.0); Calcium 9.9 mg/dL (8.4-10.2); Total Bilirubin 1.3 mg/dL (0.2-1.3); Total Protein 7.2 g/dL (6.3-8.2)
--- NOTE | 2020-02-12 16:00 | CT ---
EXAMINATION TYPE: CT brain wo con for TPA DATE OF EXAM: 02/12/2020 COMPARISON: None HISTORY: Slurred speech with Left facial droop. CT DLP: 1160.[address] of the brain was performed. The ventricles, basal cisterns and sulci overlying the cerebral convexities demonstrate mild enlargem ent. There is no evidence for intracranial hemorrhage or sulcal effacement. There is moderate decreased attenuation about the periventricular white matter and deep white matter of both cerebral hemispheres, compatible with chronic small vessel ischemia. Differential diagnosis d oes include demyelination. No mass effects are seen.No midline shift. Osseous calvarium is intact. If symptoms persist consider MRI. IMPRESSION: 1. Age related atrophic and chronic small vessel ischemic change without acute intracranial process s een at this time.
[2020-02-12 16:07] LABS: Partial Thromboplastin Time 24.2 sec (22.0-30.0); Prothrombin Time 10.1 sec (9.0-12.0)
--- NOTE | 2020-02-12 16:29 | CT ---
EXAMINATION TYPE: CT angio head neck DATE OF EXAM: 02/12/2020 HISTORY: Slurred speech with Left facial droop. COMPARISON: CT DLP: 527 mGycm. Automated Exposure Control for Dose Reduction was Utilized. TECHNIQUE: CTA scan of the neck is performed with IV Contrast, patient injected with 65 mL of Isovue 370, axial images are obtained, coronal and sagittal reformatted images are reviewed. Three-D recons tructed images are created on an independent workstation and reviewed. 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 Pulmonary artery is some what dilated, correlate for possible pulmonary artery hypertension. The innominate, left and right co mmon carotid, left and right subclavian, left and right vertebral arteries are patent. Left vertebral artery is dominant. No evident stenosis of the proximal internal carotid arteries by NASCET criteria . Internal and external carotid arteries are patent. There is no evident embolus, aneurysm, or dissec tion. There are cerebral vascular calcifications. Anterior posterior circulation are intact. Other: Emphysematous changes are present in the lung apices. IMPRESSION: No significant abnormality is seen, consider MRI as indicated.
[2020-02-12] MEDS ORDERED: ASPIRIN 81 MG PO STA (17:03)
--- NOTE | 2020-02-12 17:03 | XR ---
EXAMINATION TYPE: XR chest 2V DATE OF EXAM: 02/12/2020 COMPARISON: Chest x-ray November 13, 2018. HISTORY: Chest pain and weakness. Fall injury today. TECHNIQUE: Frontal and lateral views of the chest are obtained. FINDINGS: There is chronic parenchymal change without suspicious new focal air space opacity, pleura l effusion, or pneumothorax seen. The cardiac silhouette size remains enlarged with atherosclerotic thoracic aorta. The osseous structures remain demineralized. Surgical hardware right shoulder level partially imaged. IMPRESSION: Chronic changes and cardiomegaly without acute pulmonary process.
[2020-02-12] MEDS ORDERED: SODIUM CHLORIDE 0.9% 1,000 ML IV SCH (17:30)
[2020-02-12] MEDS: NICOTINE 21MG/24HR PATCH TRANSDERM SCH (20:29)
[2020-02-12] MEDS ORDERED: SYMBICORT 80-4.5 MCG INHALER INHALATION PRN (21:04)
[2020-02-12] MEDS ORDERED: ALBUTEROL NEBULIZED 2.5 MG/3 ML INHALATION PRN (21:04)
[2020-02-12] MEDS: CHLORTHALIDONE 25 MG TAB PO SCH (22:54)
[2020-02-12] MEDS: DEXTROSE 5%-0.9% NACL 1,000 ML IV SCH (23:01)
[2020-02-12] MEDS: ALBUTEROL NEBULIZED 2.5 MG/3 ML INHALATION PRN (23:26)
[2020-02-13 06:29] LABS: Basophils # (A) 0.1 k/uL (0-0.2); Basophils % (A) 1 %; Eosinophils # (A) 0.3 k/uL (0-0.7); Eosinophils % (A) 3 %; HCT 45.3 % (34.0-46.0); HGB 15.5 gm/dL (11.4-16.0); Lymphocytes # (A) 2.6 k/uL (1.0-4.8); Lymphocytes % (A) 25 %; MCH 31.1 pg (25.0-35.0); MCHC 34.3 g/dL (31.0-37.0); MCV 90.7 fL (80.0-100.0); Mean Platelet Volume 7.4; Monocytes # (A) 0.9 k/uL (0-1.0); Monocytes % (A) 9 %; Neutrophils # (A) 6.4 k/uL (1.3-7.7); Neutrophils % (A) 61 %; Platelet Count 291 k/uL (150-450); RBC 4.99 m/uL (3.80-5.40); WBC 10.4 k/uL (3.8-10.6)
[2020-02-13 06:41] LABS: Calcium 8.9 mg/dL (8.4-10.2)
[2020-02-13 06:57] LABS: Potassium 3.7 mmol/L (3.5-5.1)
[2020-02-13] MEDS: ALBUTEROL NEBULIZED 2.5 MG/3 ML INHALATION PRN ×3 (07:32→19:20)
--- NOTE | 2020-02-13 09:24 | MR ---
MR brain without contrast HISTORY: Neuro deficits, facial and general weakness, rule out CVA Multiplanar multisequence imaging through the brain Correlation to CT brain 02/12/2020 Restricted diffusion is present within the posterior limb of the internal capsule on the right, addit ionally there is a small focus of restricted diffusion present within the right parietal white matter . There is encephalomalacia involving the anterior corpus callosum, periventricular white matter show s extensive confluent hyperintensity and inversion recovery T2-weighted sequences, similar abnormal s ignal is present within the fabian. There is no hemorrhage or hydrocephalus. Pituitary, cervical medull lit junction, cerebellopontine angles are within normal limits. There is some motion on the exam. Orb its show symmetric appearance. There is likely age-related atrophy. Mild mucosal disease present with in the frontal sinus, ethmoid air cells. There are normal vascular flow voids. IMPRESSION: Subacute ischemia posterior limb internal capsule on the right as well as in the right pa rietal lobe, there is evidence of chronic small vessel ischemia and age-related atrophy.
[2020-02-13] MEDS: NICOTINE 21MG/24HR PATCH TRANSDERM SCH (09:46)
--- NOTE | 2020-02-13 11:02 | P.CNNES ---
History of Present Illness Consult date: 02/13/20 Requesting physician: Eduardo Carnes Reason for Consult: stroke History of Present Illness: This is a 79-year-old female with medical history of breast cancer (diagnosed 5 years ago) s/p resection (1 year ago), dyslipidemia, hypertension, COPD who presented to the emergency department on 02/12/2020 with the acute onset left facial weakness. She was last seen normal by family members at approximately 1 PM. At 1:30 she had a phone call with one of her family members and they noted that she did have some slurring of her speech. She denies of numbness or tingling. She denies history of stroke according to medical records. According to the patient she was last normal at midnight the night prior to her stroke sy mptom presentation (02/12/2020) and was normal. Then at 6:30am on 01/13/2020 she woke-up and got up of bed, felt light headed and fell. She did not notice any weakness and not sure if she had left facial weakness or sounded slurred. She denied urinary and bowel incontinence or tongue bite. Denies history of seizure. She said on the floor until her family members came around 1:30pm and thats when they noticed left facial weakness. On presentation her NIH was a 3. Stroke pager was activated and was the case was discussed with the stroke team via phone. In the ED she had CT of the head without contrast and it was reported as age- related atrophic and chronic small vessel ischemic changes without intracranial process seen. CT of the head and neck did not show any evidence of stenosis or proximal internal carotid artery and were patent. There is no evidence of embolism aneurysm or dissection. There are cerebrovascular consultation. Since the patient's symptoms were improving Her medical records and her she had a low NIH tPA was not considered. EKG showed ventricular rate of 77, normal sinus rhythm with sinus arrhythmia. RSR or QR pattern in [place] suggests right ventricular conduction delay. On presentation. Pressure was 169/96. She is on ASA 81mg at home as well as Lipitor but does not recall of dose. She has not missed her medication. She denies history of TIA or strokes. She is a chronic smoker (since 1966) and smoking 1 pack per day. Her mother has history of TIA. Regarding her history of breast cancer she is not on treatment. Review of Systems Review of system: The 12 point system was reviewed and apparent positive and negative per HPI. 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" R knee and R shoulder replacement Past Anesthesia/Blood Transfusion Reactions: No Reported Reaction Additional Past Anesthesia/Blood Transfusion Reaction / Comment(s): no hx blood transfusion Past Psychological History: Depression Smoking Status: Current every day smoker Past Alcohol Use History: None Reported Additional Past Alcohol Use History / Comment(s): smokes 1ppd from age 37 (1977) Past Drug Use History: None Reported - Past Family History Sister(s) Family Medical History: Cancer Additional Family Medical History / Comment(s): 2 sisters had breast ca, one sister had ovarian ca Daughter(s) Family Medical History: Cancer Additional Family Medical History / Comment(s): breast CA Medications and Allergies Home Medications Medication Instructions Recorded Confirmed Type Atenolol/Chlorthalidone 1 tab PO HS 02/26/17 02/12/20 History [Atenolol-Chlorthalidone 50-25] Atorvastatin [Lipitor] 20 mg PO HS 02/26/17 02/12/20 History Albuterol Nebulized [Ventolin 2.5 mg INHALATION RT-QID PRN 03/09/17 02/12/20 History Nebulized] Cholecalciferol [Vitamin D3 (25 2,000 unit PO BID 03/09/17 02/12/20 History Mcg = 1000 Iu)] Fluticasone/Salmeterol [Advair 1 puff INHALATION RT-DAILY PRN 03/09/17 02/12/20 History 250-50 Diskus] Tiotropium [place] [Spiriva] 1 cap INHALATION RT-DAILY PRN 03/09/17 02/12/20 History Cyanocobalamin (Vitamin B-12) 1,000 mcg PO BID 11/09/18 02/12/20 History [Vitamin B-12] Diclofenac Sodium [Voltaren Gel] 1 applic TOPICAL DAILY PRN 11/09/18 02/12/20 History Acetaminophen [Tylenol Extra 500 mg PO DIRECTED PRN 06/16/19 02/12/20 History Strength] Potassium Chloride [Klor-Con 10] 10 meq PO HS 06/16/19 02/12/20 History Potassium Chloride [Klor-Con 20] 20 meq PO HS 06/16/19 02/12/20 History Verapamil HCl [Calan] 120 mg PO W/LUNCH 06/16/19 02/12/20 History buPROPion HCL [Wellbutrin XL] 150 mg PO HS 06/16/19 02/12/20 History Albuterol Sulfate [Ventolin HFA] 1 - 2 puff INHALATION Q6H PRN 02/12/20 02/12/20 History Glucos Sul 2Kcl/MSM/Chond/C/Mn 1 cap PO HS 02/12/20 02/12/20 History [Glucosamine Chondroitin Cap] Multivitamins, Thera [Multivitamin 1 tab PO HS 02/12/20 02/12/20 History (formulary)] Allergies Allergy/AdvReac Type Severity Reaction Status Date / Time No Known Allergies Allergy Verified 02/12/20 15:28 Physical Examination - Vital Signs Vital Signs: Vital Signs Temp Pulse Pulse Resp BP BP BP 02/13/20 07:44 78 02/13/20 07:32 76 02/13/20 03:40 98.0 F 74 20 185/102 217/103 02/12/20 23:38 77 02/12/20 23:29 98.3 F 77 16 212/104 02/12/20 23:27 77 02/12/20 19:53 98.3 F 69 18 172/95 02/12/20 18:14 79 16 157/111 02/12/20 16:35 70 18 167/129 02/12/20 16:30 70 18 149/98 02/12/20 16:15 67 18 180/116 02/12/20 16:00 67 18 171/100 02/12/20 15:45 68 18 164/95 02/12/20 15:30 98 F 69 18 169/96 02/12/20 15:28 97.8 F 78 18 169/96 Pulse Ox 02/13/20 07:44 02/13/20 07:32 02/13/20 03:40 96 02/12/20 23:38 02/12/20 23:29 96 02/12/20 23:27 02/12/20 19:53 95 02/12/20 18:14 96 02/12/20 16:35 94 L 02/12/20 16:30 95 02/12/20 16:15 93 L 02/12/20 16:00 93 L 02/12/20 15:45 93 L 02/12/20 15:30 93 L 02/12/20 15:28 92 L Intake and Output 02/12/20 02/13/20 02/13/20 22:59 06:59 14:59 Intake Total 0 Balance 0 Intake: Oral 0 Other: # Voids 1 # Bowel Movements 1 1 Weight 79.379 kg 91.5 kg - Additional findings GENERAL: The patient is lying in bed and is not in acute distress. CHEST: The heart rate is regular rate rhythm. No murmurs to auscultation. No carotid bruit bilaterally. LUNG: There is wheezing to lungs to auscultation throughout. Not in labored breathing. ABDOMEN/GI: Bowel sounds present in all 4 quadrants. No tenderness to palpation throughout. NEUROLOGICAL: Higher mental function: The patient is awake, alert, oriented to self, place and time. Patient is following commands. No aphasia and no neglect. Cranial nerves: The pupils are round, equal and reactive to light and accommodation. Visual lance are full to confrontation throughout. Extraocular movement is intact no nystagmus is noted. Facial sensation is decreased to touch to entirle left face. The facial strength: left lower facial weakness. Hearing is normal bilaterally to hand rub. Tongue is midline and moved [id number] without any difficulty. Has mild dysarthria. Shoulder shrug is normal bilaterally. Motor: Gait is defered. The strength is 5 over 5 throughout. Normal tone and bulk. Cerebellum: Normal finger to nose heel to chin bilaterally. Sensation: Decrease senation to touch on tentirle left side. Reflexes (right/left): Biceps 2+/3+; Otherwise rest of reflexes are 2+. Plantars is downgoing on right and upgoing on left. Results - Laboratory Findings CBC and BMP: 02/13/20 05:53 02/13/20 05:53 Abnormal Lab Findings: Abnormal Labs 02/12/20 02/12/20 02/12/20 15:29 15:29 15:35 WBC 14.4 H RBC 5.44 H Hgb 17.6 H Hct 49.0 H Neutrophils # 11.0 H Monocytes # 1.2 H Glucose 132 H POC Glucose (mg/dL) 140 H Alkaline Phosphatase 151 H HDL Cholesterol 02/13/20 05:53 WBC RBC Hgb Hct Neutrophils # Monocytes # Glucose 124 H POC Glucose (mg/dL) Alkaline Phosphatase HDL Cholesterol 32 L - Diagnostic Findings Additional findings: Her initial white blood cell with was 14.4 that improved to 10.4. PT is 10.1, INR is 1.0, PTT is 24.2 Llipid profile the triglycerides is 137 cholesterol is 154, LDL cholesterol is 95, HDL cholesterol is 32 Assessment and Plan Assessment: This is a 79-year-old female with medical history of breast cancer, dyslipidemia, hypertension, chronic smoker, COPD who presented to the emergency department on 02/12/2020 with the acute onset left facial weakness. Per medical records she was last seen normal by family members at approximately 1 PM on 02/12/2020. At 1:30 she had a phone call with one of her family members and they noted that she did have some slurring of her speech. But according to patient she was last normal at midnight prior to symptom presentation. On presentation her NIH was a 3. CT head did not show any acute abnormality. Tpa was not given since patient symptoms were improving. MRI Brain showed subacute ischemia in posterior limb of right internal capsule and right parietal as well as small vessel disease and age related atrophy. Left facial weakness, dysarthria and sensory loss on left side are due to subacute ischemia in posterior limb of right internal capsule and right parietal. Etiologies are due to likely her risk factors of stroke (HTN, dyslipidemia, tobacco use and history of breast cancer). HTN Dyslipidemia COPD tobacco use Plan: Stroke work-up include: CT of the head without contrast and it was reported as age-related atrophic and chronic small vessel ischemic changes without intracranial process seen. CTA of the head and neck:CTA of the head and neck did not show any evidence of stenosis or proximal internal carotid artery and were patent. There is no evidence of embolism aneurysm or dissection. MRI Brain showed subacute ischemia in posterior limb of right internal capsule and right parietal as well as small vessel disease and age related atrophy. Transthoracic echocardiogram; Pending Llipid profile the triglycerides is 137 cholesterol is 154, LDL cholesterol is 95, HDL cholesterol is 32 TSH; hemoglobin A1c; Pending Continue cardiac monitoring. Recommend placing patient on ASA 81mg and adding Plavix 75mg daily. She states she was on ASA 81mg daily. Continue Lipitor : 20mg daily with target LDL less than 70. PT/OT and COMPTOMETER OPERATOR are consulted. Patient was consuled on tobacco cessation and controlling her blood pressure and dyslipidemia. Regarding history of COPD will defer management to Primary team. Thank you for the consult. Daniel Eaton MD Neurohospitalist Time with Patient: Greater than 30
--- NOTE | 2020-02-13 13:12 | ECHOF ---
Referral Reason:stroke, rule out thrombus MEASUREMENTS -------- HEIGHT: 170.2 cm WEIGHT: 95.3 kg BP: RVIDd: 3.5 cm (< 3.3) IVSd: 1.4 cm (0.6 - 1.1) LVIDd: 5.4 cm (3.9 - 5.3) LVPWd: 1.4 cm (0.6 - 1.1) IVSs: 1.7 cm LVIDs: 3.9 cm LVPWs: 1.8 cm Ao Diam: 3.7 cm (2.0 - 3.7) AV Cusp: 1.5 cm (1.5 - 2.6) MV EXCURSION: 14.751 mm (> 18.000) MV EF SLOPE: 48 mm/s (70 - 150) EPSS: 1.7 cm MV E Anatoliy: 0.64 m/s MV DecT: 239 ms MV A Anatoliy: 1.06 m/s MV E/A Ratio: 0.61 AV maxP.51 mmHg AV meanP.71 mmHg RAP: 5.00 mmHg RVSP: 15.39 mmHg FINDINGS -------- Sinus rhythm with extra systolic beats. This was a techncally difficult study with suboptimal views, , Lumason utilized for enhancement of im ages. The left ventricular size is normal. There is moderate concentric left ventricular hypertrophy. O verall left ventricular systolic function is normal with, an EF between 55 - 60 %. The right ventricle is mildly enlarged. The right atrial size is normal. 5.0mg OF Lumason UTLIZED: 2 OR MORE WALL SEGMENTS NOT VISUALIZED. The aortic valve was not well visualized. There is mild aortic stenosis present. Peak/mean gradie nt across the Aortic Valve is 17.51mmHg / 8.71mmHg. Moderate mitral annular calcification present. Mild mitral regurgitation is present. Mild tricuspid regurgitation present. Right ventricular systolic pressure is normal at < 35 mmHg. The pulmonic valve was not well visualized. There is no pulmonic regurgitation present. 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 There is a trivial pericardial effusion present. CONCLUSIONS -------- 1. This was a techncally difficult study with suboptimal views, , Lumason utilized for enhancement of images. 2. There is moderate concentric left ventricular hypertrophy. 3. Overall left ventricular systolic function is normal with, an EF between 55 - 60 %. 4. The right ventricle is mildly enlarged. 5. 5.0mg OF Lumason UTLIZED: 2 OR MORE WALL SEGMENTS NOT VISUALIZED. 6. The aortic valve was not well visualized. 7. There is mild aortic stenosis present. 8. Peak/mean gradient across the Aortic Valve is 17.51mmHg / 8.71mmHg. 9. Moderate mitral annular calcification present. 10. Mild mitral regurgitation is present. 11. Mild tricuspid regurgitation present. 12. 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 13. There is a trivial pericardial effusion present. GOLF MANAGER: Roxanna Russo RDCS
--- NOTE | 2020-02-13 15:22 | FL ---
EXAMINATION TYPE: FL barium swallow w video DATE OF EXAM: 02/13/2020 COMPARISON: NONE HISTORY: Bedside aspiration TECHNIQUE: Fluoroscopy. FINDINGS: Fluoroscopic guidance was provided for the procedure performed in conjunction with the [facility] department. Please see complete report forthcoming from the Speech Pathology departmen t. Various consistencies from thin liquid to solids were administered. Fluoroscopy time 300 seconds. Number of images: 0. Significant aspiration occurred with thin liquids. Penetration was observed with nectar thick liquids . There is significant pooling within the vallecula. Marked hesitancy of bolus formation was observed . Penetration was observed with honey thick consistencies. With the chin tuck method no aspiration or significant penetration was evident. IMPRESSION: 1. Moderate gross aspiration with thin liquids. 2. Milder penetration with nectar thick and honey thick consistencies. 3. Marked vallecular retention. 4. Marked delay in swallowing sequence. 5. Please see complete report forthcoming from the speech pathology department.
[2020-02-13] MEDS: VERAPAMIL SR 120 MG TABLET.ER PO SCH (15:27)
[2020-02-13] MEDS: ASPIRIN 81 MG PO SCH (15:27)
[2020-02-13] MEDS: DEXTROSE 5%-0.9% NACL 1,000 ML IV SCH (17:32)
[2020-02-13 20:49] LABS: Hemoglobin A1C 5.7 % (4.0-6.0)
[2020-02-13] MEDS: CHLORTHALIDONE 25 MG TAB PO SCH (21:24)
[2020-02-13] MEDS: ATORVASTATIN 20 MG TAB PO SCH (21:24)
[2020-02-13] MEDS: atenoloL 50 MG TAB PO SCH (21:24)
[2020-02-13] MEDS: buPROPion XL 150 MG TAB.ER.24H PO SCH (21:24)
--- NOTE | 2020-02-13 23:33 | P.HPIM ---
History of Present Illness H&P Date: 02/13/20 Chief Complaint: Left facial weakness Patient is a 79-year-old female with a known history of hypertension, hyperlipidemia, COPD, currently everyday smoker, obstructive sleep apnea on CPAP at home, history of breast cancer left status post chemo and radiation, depression and other multiple medical problems presents to ER with complaints of left facial weakness and slurred speech. Patient symptoms started around 1 PM yesterday. EMS was called due to strokelike symptoms.She was last seen normal by family members at approximately 1 PM. 1:30 she had a phone call with one of her family members and they noted that she did have some slight slurring of her speech. Patient denies any history of stroke. Denied any numbness. No tingling sensation in the extremities. Patient is somewhat poor historian. NIH score was 3 on admission. Patient did have left facial droop concerning symptoms are improving since the time of onset and low NIH score patient was not a candidate for TPA, was not administered. CT brain showed age-related atrophic and chronic small vessel ischemic changes without acute intracranial process is seen at this time. CT angiogram showed no significant abnormalities seen. Consider MRI as indicated. Chest x-ray showed chronic changes and cardiomegaly without acute pulmonary process EKG showed normal sinus rhythm with sinus arrhythmia RI of the brain was done this morning showed subacute ischemia posterior limb internal capsule on the right as well as in the right parietal lobe. There is evidence of chronic small vessel ischemia and age-related atrophy. 2D echocardiogram showed ejection fraction of 55 to 60%, moderate mitral annular calcification. A sending aortic root is dilated and measures 4.2 cm. EKG interpretation: Ventricular rate 77, normal sinus,. Interval 90, QRS 90, QTC 482. No VA prolongation, no QTC prolongation, no ST or T-wave changes noted. EKG compared to 02/19/2017 showing no changes. Overall, this EKG is unremarkable Review of Systems Constitutional: Patient denies any fever or chills . No generalized weakness or weight loss. Abdomen: Patient denied nausea vomiting and diarrhea and abdominal pain. Cardiovascular: Patient denies any chest pain or short of breath no palpitations. Respiratory: patient denied any cough is from production. No shortness of breath Neurologic: Patient denied any numbness or tingling headache.Left facial weak ness and slurred speech Musculoskeletal: Patient denies any complaints of joint swelling or deformity. Skin: Negative Complete review of systems could not be obtained from the patient. 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" R knee and R shoulder replacement Past Anesthesia/Blood Transfusion Reactions: No Reported Reaction Additional Past Anesthesia/Blood Transfusion Reaction / Comment(s): no hx blood transfusion Past Psychological History: Depression Smoking Status: Current every day smoker Past Alcohol Use History: None Reported Additional Past Alcohol Use History / Comment(s): smokes 1ppd from age 37 (1975) Past Drug Use History: None Reported - Past Family History Sister(s) Family Medical History: Cancer Additional Family Medical History / Comment(s): 2 sisters had breast ca, one sister had ovarian ca Daughter(s) Family Medical History: Cancer Additional Family Medical History / Comment(s): breast CA Medications and Allergies Home Medications Medication Instructions Recorded Confirmed Type Atenolol/Chlorthalidone 1 tab PO HS 02/26/17 02/12/20 History [Atenolol-Chlorthalidone 50-25] Atorvastatin [Lipitor] 20 mg PO HS 02/26/17 02/12/20 History Albuterol Nebulized [Ventolin 2.5 mg INHALATION RT-QID PRN 03/09/17 02/12/20 History Nebulized] Cholecalciferol [Vitamin D3 (25 2,000 unit PO BID 03/09/17 02/12/20 History Mcg = 1000 Iu)] Fluticasone/Salmeterol [Advair 1 puff INHALATION RT-DAILY PRN 03/09/17 02/12/20 History 250-50 Diskus] Tiotropium [place] [Spiriva] 1 cap INHALATION RT-DAILY PRN 03/09/17 02/12/20 History Cyanocobalamin (Vitamin B-12) 1,000 mcg PO BID 11/09/18 02/12/20 History [Vitamin B-12] Diclofenac Sodium [Voltaren Gel] 1 applic TOPICAL DAILY PRN 11/09/18 02/12/20 History Acetaminophen [Tylenol Extra 500 mg PO DIRECTED PRN 06/16/19 02/12/20 History Strength] Potassium Chloride [Klor-Con 10] 10 meq PO HS 06/16/19 02/12/20 History Potassium Chloride [Klor-Con 20] 20 meq PO HS 06/16/19 02/12/20 History Verapamil HCl [Calan] 120 mg PO W/LUNCH 06/16/19 02/12/20 History buPROPion HCL [Wellbutrin XL] 150 mg PO HS 06/16/19 02/12/20 History Albuterol Sulfate [Ventolin HFA] 1 - 2 puff INHALATION Q6H PRN 02/12/20 02/12/20 History Glucos Sul 2Kcl/MSM/Chond/C/Mn 1 cap PO HS 02/12/20 02/12/20 History [Glucosamine Chondroitin Cap] Multivitamins, Thera [Multivitamin 1 tab PO HS 02/12/20 02/12/20 History (formulary)] Allergies Allergy/AdvReac Type Severity Reaction Status Date / Time No Known Allergies Allergy Verified 02/12/20 15:28 Physical Exam Vitals: Vital Signs Temp Pulse Pulse Resp BP BP BP 02/13/20 07:44 78 02/13/20 07:32 76 02/13/20 03:40 98.0 F 74 20 185/102 217/103 02/12/20 23:38 77 02/12/20 23:29 98.3 F 77 16 212/104 02/12/20 23:27 77 02/12/20 19:53 98.3 F 69 18 172/95 02/12/20 18:14 79 16 157/111 02/12/20 16:35 70 18 167/129 02/12/20 16:30 70 18 149/98 02/12/20 16:15 67 18 180/116 02/12/20 16:00 67 18 171/100 02/12/20 15:45 68 18 164/95 02/12/20 15:30 98 F 69 18 169/96 02/12/20 15:28 97.8 F 78 18 169/96 Pulse Ox 02/13/20 07:44 02/13/20 07:32 02/13/20 03:40 96 02/12/20 23:38 02/12/20 23:29 96 02/12/20 23:27 02/12/20 19:53 95 02/12/20 18:14 96 02/12/20 16:35 94 L 02/12/20 16:30 95 02/12/20 16:15 93 L 02/12/20 16:00 93 L 02/12/20 15:45 93 L 02/12/20 15:30 93 L 02/12/20 15:28 92 L Intake and Output 02/12/20 02/13/20 02/13/20 22:59 06:59 14:59 Intake Total 0 Output Total 2 Balance 0 -2 Intake: Oral 0 Output: Urine 2 Other: # Voids 1 1 # Bowel Movements 1 1 Weight 79.379 kg 91.5 kg PHYSICAL EXAMINATION: Patient is lying in the bed comfortably, no acute distress, awake alert and oriented.. HEENT: Normocephalic. Neck is supple. Pupils reactive. Nostrils clear. Oral cavity is moist. Ears reveal no drainage. Neck reveals no JVD, carotid bruits, or thyromegaly. CHEST EXAMINATION: Trachea is central. Symmetrical expansion. Lung lance clear to auscultation and percussion. CARDIAC: Normal S1, S2 with no gallops. No murmurs ABDOMEN: Soft. Bowel sounds normal. No organomegaly. No abdominal bruits. Extremities: reveal no edema. No clubbing or cyanosis Neurologically awake, alert, oriented x3 . Left lower facial weakness, not aphasic, mild dysarthria, no drift to the left lower extremity. No sensory deficits. Mild left periorbital weakness. Skin: No rash or skin lesions. Psychiatric: Coperative. Nonsuicidal Musculoskeletal: No joint swelling or deformity. Normal range of motion. Results CBC & Chem 7: 02/13/20 05:53 02/13/20 05:53 Labs: Abnormal Lab Results - Last 24 Hours (Table) 02/12/20 02/12/20 02/12/20 Range/Units 15:29 15:29 15:35 WBC 14.4 H (3.8-10.6) k/uL RBC 5.44 H (3.80-5.40) m/uL Hgb 17.6 H (11.4-16.0) gm/dL Hct 49.0 H (34.0-46.0) % Neutrophils # 11.0 H (1.3-7.7) k/uL Monocytes # 1.2 H (0-1.0) k/uL Glucose 132 H (74-99) mg/dL POC Glucose (mg/dL) 140 H (75-99) mg/dL Alkaline Phosphatase 151 H (38-126) U/L HDL Cholesterol (40-60) mg/dL 02/13/20 Range/Units 05:53 WBC (3.8-10.6) k/uL RBC (3.80-5.40) m/uL Hgb (11.4-16.0) gm/dL Hct (34.0-46.0) % Neutrophils # (1.3-7.7) k/uL Monocytes # (0-1.0) k/uL Glucose 124 H (74-99) mg/dL POC Glucose (mg/dL) (75-99) mg/dL Alkaline Phosphatase (38-126) U/L HDL Cholesterol 32 L (40-60) mg/dL Thrombosis Risk Factor Assmnt - DVT/VTE Prophylaxis DVT/VTE Prophylaxis: Pharmacologic Prophylaxis ordered - Choose All That Apply Any of the Below Risk Factors Present?: Yes Each Factor Represents 1 point: Abnormal pulmonary function (COPD), Obesity (BMI >25) Other Risk Factors: No Other congenital or acquired thrombophilia - If yes, enter type in comment: Yes Each Risk Factor Represents 5 Points: Stroke (< 1 month) Thrombosis Risk Factor Assessment Total Risk Factor Score: 7 Thrombosis Risk Factor Assessment Level: High Risk Assessment and Plan Assessment: Acute CVA with left facial weakness and slurred speech with sensory deficit. Subacute ischemia posterior limb internal capsule on the right as well as in the right parietal lobe Hypertension Hyperlipidemia COPD Obstructive sleep apnea on CPAP at home Currently ongoing nicotine addiction History of breast cancer status post chemoradiation Depression DVT prophylaxis Plan: Patient will be continued on aspirin and statins. Continue with home medications and PT OT, speech therapy was consulted. Stroke work-up was ordered. Neurology is following. Neurochecks. Continue to follow closely. Time with Patient: Greater than 30
[2020-02-14] MEDS: DEXTROSE 5%-0.9% NACL 1,000 ML IV SCH ×2 (06:09→19:42)
[2020-02-14] MEDS: CLOPIDOGREL 75 MG TAB PO SCH (08:24)
[2020-02-14] MEDS: ASPIRIN 81 MG PO SCH (08:24)
[2020-02-14] MEDS: NICOTINE 21MG/24HR PATCH TRANSDERM SCH (08:25)
[2020-02-14] MEDS: ALBUTEROL NEBULIZED 2.5 MG/3 ML INHALATION PRN (08:57)
[2020-02-14 12:16] LABS: Glucose,Whole Blood 128 mg/dL (75-99)
[2020-02-14] MEDS: VERAPAMIL SR 120 MG TABLET.ER PO SCH (12:55)
--- NOTE | 2020-02-14 19:07 | P.PN ---
Subjective Progress Note Date: 02/14/20 Principal diagnosis: stroke patient was seen at bedside and she states that she's doing better. She denies of any new weakness, numbness or visual disturbance. Objective - Vital Signs Vital signs: Vital Signs Temp 97.1 F L 02/14/20 08:00 Pulse 61 02/14/20 16:00 Resp 17 02/14/20 16:00 BP 197/89 02/14/20 16:50 Pulse Ox 94 L 02/14/20 16:00 Intake & Output 02/14/20 02/14/20 02/15/20 06:59 18:59 06:59 Intake Total 540 Output Total 1501 Balance -961 Weight 90 kg Intake: Oral 540 Output: Urine 1501 Other: # Voids 3 300 - Exam GENERAL: The patient is lying in bed and is not in acute distress. CHEST: The heart rate is regular rate rhythm. No murmurs to auscultation. No carotid bruit bilaterally. LUNG: There is wheezing to lungs to auscultation throughout. Not in labored breathing. ABDOMEN/GI: Bowel sounds present in all 4 quadrants. No tenderness to palpation throughout. NEUROLOGICAL: Higher mental function: The patient is awake, alert, oriented to self, place and time. Patient is following commands. No aphasia and no neglect. Cranial nerves: The pupils are round, equal and reactive to light and accommodation. Visual lance are full to confrontation throughout. Extraocular movement is intact no nystagmus is noted. Facial sensation is decreased to touch to entirle left face. The facial strength: left lower facial weakness. Hearing is normal bilaterally to hand rub. Tongue is midline and moved [id number] without any difficulty. Has mild dysarthria. Shoulder shrug is normal bilaterally. Motor: Gait is defered. The strength is 5 over 5 throughout. Normal tone and bulk. Cerebellum: Normal finger to nose heel to chin bilaterally. Sensation: Decrease senation to touch on tentirle left side. Reflexes (right/left): Biceps 2+/3+; Otherwise rest of reflexes are 2+. Plantars is downgoing on right and upgoing on left. - Labs CBC & Chem 7: 02/13/20 05:53 02/13/20 05:53 Labs: Abnormal Lab Results - Last 24 Hours (Table) 02/14/20 Range/Units 12:01 POC Glucose (mg/dL) 128 H (75-99) mg/dL Assessment and Plan Assessment: This is a 79-year-old female with medical history of breast cancer, dyslipidemia, hypertension, chronic smoker, COPD who presented to the emergency department on 02/12/2020 with the acute onset left facial weakness. Per medical records she was last seen normal by family members at approximately 1 PM on 02/12/2020. At 1:30 she had a phone call with one of her family members and nato luna noted that she did have some slurring of her speech. But according to patient she was last normal at midnight prior to symptom presentation. On presentation her NIH was a 3. CT head did not show any acute abnormality. Tpa was not given since patient symptoms were improving. MRI Brain showed subacute ischemia in posterior limb of right internal capsule and right parietal as well as small vessel disease and age related atrophy. Left facial weakness, dysarthria and sensory loss on left side are due to subacute ischemia in posterior limb of right internal capsule and right parietal. Etiologies are due to likely her risk factors of stroke (HTN, dyslipidemia, tobacco use and history of breast cancer). HTN Dyslipidemia COPD tobacco use Plan: Stroke work-up include: CT of the head without contrast and it was reported as age-related atrophic and chronic small vessel ischemic changes without intracranial process seen. CTA of the head and neck:CTA of the head and neck did not show any evidence of stenosis or proximal internal carotid artery and were patent. There is no evidence of embolism aneurysm or dissection. MRI Brain showed subacute ischemia in posterior limb of right internal capsule and right parietal as well as small vessel disease and age related atrophy. Transthoracic echocardiogram; EF 55-60%. Moderate concentric left ventricular hypertrophy. Llipid profile the triglycerides is 137 cholesterol is 154, LDL cholesterol is 95, HDL cholesterol is 32 TSH; hemoglobin A1c; 5.7 Tele-monitor: Normal sinus rhythm. Continue telemonitor monitoring. Recommend placing patient on ASA 81mg and adding Plavix 75mg daily. She states she was on ASA 81mg daily. Continue Lipitor : 20mg daily with target LDL less than 70. PT/OT and AWARD MACHINE OPERATOR are consulted. Patient was consuled on tobacco cessation and controlling her blood pressure and dyslipidemia. Regarding history of COPD will defer management to Primary team. We will continue to follow Daniel Eaton MD Neurohospitalist
[2020-02-14] MEDS: ATORVASTATIN 20 MG TAB PO SCH (19:44)
[2020-02-14] MEDS: CHLORTHALIDONE 25 MG TAB PO SCH (19:44)
[2020-02-14] MEDS: buPROPion XL 150 MG TAB.ER.24H PO SCH (19:45)
[2020-02-14] MEDS: atenoloL 50 MG TAB PO SCH (19:45)
[2020-02-14] MEDS ORDERED: hydrALAZINE HCL 20 MG/ML 1 ML VIAL IVP STA (23:27)
[2020-02-14] MEDS: lisinopriL 20 MG TAB PO SCH (23:34)
[2020-02-15] MEDS: DEXTROSE 5%-0.9% NACL 1,000 ML IV SCH ×2 (06:39→16:26)
[2020-02-15] MEDS: ASPIRIN 81 MG PO SCH (11:31)
[2020-02-15] MEDS: lisinopriL 20 MG TAB PO SCH (11:31)
[2020-02-15] MEDS: VERAPAMIL SR 120 MG TABLET.ER PO SCH (11:31)
[2020-02-15] MEDS: CLOPIDOGREL 75 MG TAB PO SCH (11:31)
[2020-02-15] MEDS: NICOTINE 21MG/24HR PATCH TRANSDERM SCH (11:32)
[2020-02-15] MEDS ORDERED: hydrALAZINE HCL 20 MG/ML 1 ML VIAL IVP PRN (17:43)
[2020-02-15] MEDS ORDERED: lisinopriL 20 MG TAB PO STA (17:44)
--- NOTE | 2020-02-15 19:19 | P.PN ---
Subjective Progress Note Date: 02/15/20 Principal diagnosis: Acute/Subacute stroke patient was seen at bedside and she states that she's doing better. She is accompanied by her daughter. Her systolic blood pressure is in the 200s. Yesterday I added her on lisinopril 20 mg. She denies of any new weakness, numbness or visual disturbance. She is waiting for rehab authorization. Objective - Vital Signs Vital signs: Vital Signs Temp 98.1 F 02/15/20 15:45 Pulse 52 L 02/15/20 15:45 Resp 18 02/15/20 15:45 BP 200/85 02/15/20 15:45 Pulse Ox 94 L 02/15/20 15:45 Intake & Output 02/15/20 02/15/20 02/16/20 06:59 18:59 06:59 Intake Total 330 Output Total 200 Balance -200 330 Weight 91.2 kg Intake: Oral 330 Output: Urine 200 Other: Voiding Method Bedside Commode Diaper Incontinent # Voids 1 1 # Bowel Movements 0 - Exam GENERAL: The patient is lying in bed and is not in acute distress. CHEST: The heart rate is regular rate rhythm. No murmurs to auscultation. No carotid bruit bilaterally. LUNG: There is wheezing to lungs to auscultation throughout. Not in labored breathing. ABDOMEN/GI: Bowel sounds present in all 4 quadrants. No tenderness to palpation throughout. NEUROLOGICAL: Higher mental function: The patient is awake, alert, oriented to self, place and time. Patient is following commands. No aphasia and no neglect. Cranial nerves: The pupils are round, equal and reactive to light and accommodation. Visual lance are full to confrontation throughout. Extraocular movement is intact no nystagmus is noted. Facial sensation is decreased to touch to entire left face. The facial strength: left lower facial weakness. Hearing is normal bilaterally to hand rub. Tongue is midline and moved [id number] without any difficulty. Has mild dysarthria. Shoulder shrug is normal bilaterally. Motor: Gait is defered. The strength is 5 over 5 throughout. Normal tone and bulk. Cerebellum: Normal finger to nose heel to chin bilaterally. Sensation: Decrease senation to touch on tentirle left side. Reflexes (right/left): Biceps 2+/3+; Otherwise rest of reflexes are 2+. Plantars is downgoing on right and upgoing on left. - Labs CBC & Chem 7: 02/13/20 05:53 02/13/20 05:53 Assessment and Plan Assessment: This is a 79-year-old female with medical history of breast cancer, dyslipi demia, hypertension, chronic smoker, COPD who presented to the emergency department on 02/12/2020 with the acute onset left facial weakness. Per medical records she was last seen normal by family members at approximately 1 PM on 02/12/2020. At 1:30 she had a phone call with one of her family members and they noted that she did have some slurring of her speech. But according to patient she was last normal at midnight prior to symptom presentation. On presentation her NIH was a 3. CT head did not show any acute abnormality. Tpa was not given since patient symptoms were improving. MRI Brain showed subacute ischemia in posterior limb of right internal capsule and right parietal as well as small vessel disease and age related atrophy. Left facial weakness, dysarthria and sensory loss on left side are due to subacute ischemia in posterior limb of right internal capsule and right parietal . Etiologies are due to likely her risk factors of stroke (HTN, dyslipidemia, tobacco use and history of breast cancer). HTN Dyslipidemia COPD Tobacco use Plan: Stroke work-up include: CT of the head without contrast and it was reported as age-related atrophic and chronic small vessel ischemic changes without intracranial process seen. CTA of the head and neck:CTA of the head and neck did not show any evidence of stenosis or proximal internal carotid artery and were patent. There is no evidence of embolism aneurysm or dissection. MRI Brain showed subacute ischemia in posterior limb of right internal capsule and right parietal as well as small vessel disease and age related atrophy. Transthoracic echocardiogram; EF 55-60%. Moderate concentric left ventricular hypertrophy. Llipid profile the triglycerides is 137 cholesterol is 154, LDL cholesterol is 95, HDL cholesterol is 32 TSH; hemoglobin A1c; 5.7 Tele-monitor: Normal sinus rhythm. Continue telemonitor monitoring. Continue ASA 81mg and adding Plavix 75mg daily. She states she was on ASA 81mg daily. Continue Lipitor : 20mg daily with target LDL less than 70. PT/OT and PHARMACIST CRITICAL CARE are consulted. Patient was consuled on tobacco cessation and controlling her blood pressure and dyslipidemia. Goal systolic blood pressure is 140-160. Slowing bring it down. Increase Lisnopril to 40mg daily Regarding history of COPD will defer management to Primary team. She is clear from neurology perspective. We will continue to follow Daniel Eaton MD Neurohospitalist Time with Patient: Greater than 30
[2020-02-15] MEDS: ALBUTEROL NEBULIZED 2.5 MG/3 ML INHALATION PRN (19:52)
[2020-02-15] MEDS: ATORVASTATIN 20 MG TAB PO SCH (21:31)
[2020-02-15] MEDS: CHLORTHALIDONE 25 MG TAB PO SCH (21:31)
[2020-02-15] MEDS: buPROPion XL 150 MG TAB.ER.24H PO SCH (21:31)
[2020-02-15] MEDS: atenoloL 50 MG TAB PO SCH (21:31)
[2020-02-16] MEDS: DEXTROSE 5%-0.9% NACL 1,000 ML IV SCH (08:30)
[2020-02-16] MEDS: ASPIRIN 81 MG PO SCH (08:33)
[2020-02-16] MEDS: CLOPIDOGREL 75 MG TAB PO SCH (08:33)
[2020-02-16] MEDS: NICOTINE 21MG/24HR PATCH TRANSDERM SCH (08:33)
[2020-02-16 08:38] VITALS: TEMP 97.8
[2020-02-16] MEDS ORDERED: lisinopriL 20 MG TAB PO SCH (09:00)
--- NOTE | 2020-02-16 10:38 | P.PN ---
Subjective Progress Note Date: 02/14/20 Principal diagnosis: Acute CVA with left facial weakness and slurred speech with sensory deficit. Patient is a 79-year-old female with a known history of hypertension, hyperlipid emia, COPD, currently everyday smoker, obstructive sleep apnea on CPAP at home, history of breast cancer left status post chemo and radiation, depression and other multiple medical problems presents to ER with complaints of left facial weakness and slurred speech. Patient symptoms started around 1 PM yesterday. EMS was called due to strokelike symptoms.She was last seen normal by family members at approximately 1 PM. 1:30 she had a phone call with one of her family members and they noted that she did have some slight slurring of her speech. Patient denies any history of stroke. Denied any numbness. No tingling sensation in the extremities. Patient is somewhat poor historian. NIH score was 3 on admission. Patient did have left facial droop concerning symptoms are improving since the time of onset and low NIH score patient was not a candidate for TPA, was not administered. CT brain showed age-related atrophic and chronic small vessel ischemic changes without acute intracranial process is seen at this time. CT angiogram showed no significant abnormalities seen. Consider MRI as indicated. Chest x-ray showed chronic changes and cardiomegaly without acute pulmonary process EKG showed normal sinus rhythm with sinus arrhythmia RI of the brain was done this morning showed subacute ischemia posterior limb internal capsule on the right as well as in the right parietal lobe. There is evidence of chronic small vessel ischemia and age-related atrophy. 2D echocardiogram showed ejection fraction of 55 to 60%, moderate mitral annular calcification. A sending aortic root is dilated and measures 4.2 cm. EKG interpretation: Ventricular rate 77, normal sinus,. Interval 90, QRS 90, QTC 482. No CT prolongation, no QTC prolongation, no ST or T-wave changes noted. EKG compared to 02/19/2017 showing no changes. Overall, this EKG is unremarkable 02/14/2020 Patient is currently sitting in a chair. Speech is better and facial muscle weakness with slight improvement. Was able to tolerate pureed diet. Patient is part spreading in physical therapy and speech therapy. No complaints of chest pain or shortness of breath. No fever no chills. No cough or sputum production. No nausea vomiting or abdominal pain or diarrhea. Next and Current medications reviewed. Objective - Vital Signs Vital signs: Vital Signs Temp 97.1 F L 02/14/20 08:00 Pulse 74 02/14/20 09:10 Resp 19 02/14/20 08:00 BP 141/78 02/14/20 08:00 Pulse Ox 92 L 02/14/20 08:00 Intake & Output 02/13/20 02/14/20 02/14/20 18:59 06:59 18:59 Intake Total 200 Output Total 577 Balance -577 200 Weight 90 kg Intake: Oral 200 Output: Urine 577 Straight 575 Other: # Voids 1 3 - Exam PHYSICAL EXAMINATION: Patient is lying in the bed comfortably, no acute distress, awake alert and oriented.. HEENT: Normocephalic. Neck is supple. Pupils reactive. Nostrils clear. Oral cavity is moist. Ears reveal no drainage. Neck reveals no JVD, carotid bruits, or thyromegaly. CHEST EXAMINATION: Trachea is central. Symmetrical expansion. Lung lance clear to auscultation and percussion. CARDIAC: Normal S1, S2 with no gallops. No murmurs ABDOMEN: Soft. Bowel sounds normal. No organomegaly. No abdominal bruits. Extremities: reveal no edema. No clubbing or cyanosis Neurologically awake, alert, oriented x3 . Left lower facial weakness, not aphasic, mild dysarthria, no drift to the left lower extremity. No sensory def icits. Mild left periorbital weakness. Skin: No rash or skin lesions. Psychiatric: Coperative. Nonsuicidal Musculoskeletal: No joint swelling or deformity. Normal range of motion. - Labs CBC & Chem 7: 02/13/20 05:53 02/13/20 05:53 Assessment and Plan Assessment: Acute CVA with left facial weakness and slurred speech with sensory deficit. Subacute ischemia posterior limb internal capsule on the right as well as in the right parietal lobe Hypertension Hyperlipidemia COPD Obstructive sleep apnea on CPAP at home Currently ongoing nicotine addiction History of breast cancer status post chemoradiation Depression DVT prophylaxis Plan: Patient will be continued on aspirin and statins. Continue with home medications and PT OT, speech therapy was consulted. Stroke work-up was ordered. Neurology is following. Neurochecks. Continue to follow closely. Time with Patient: Greater than 30
--- NOTE | 2020-02-16 10:42 | P.PN ---
Subjective Progress Note Date: 02/15/20 Principal diagnosis: Acute CVA with left facial weakness and slurred speech with sensory deficit. Patient is a 79-year-old female with a known history of hypertension, hyperlipid emia, COPD, currently everyday smoker, obstructive sleep apnea on CPAP at home, history of breast cancer left status post chemo and radiation, depression and other multiple medical problems presents to ER with complaints of left facial weakness and slurred speech. Patient symptoms started around 1 PM yesterday. EMS was called due to strokelike symptoms.She was last seen normal by family members at approximately 1 PM. 1:30 she had a phone call with one of her family members and they noted that she did have some slight slurring of her speech. Patient denies any history of stroke. Denied any numbness. No tingling sensation in the extremities. Patient is somewhat poor historian. NIH score was 3 on admission. Patient did have left facial droop concerning symptoms are improving since the time of onset and low NIH score patient was not a candidate for TPA, was not administered. CT brain showed age-related atrophic and chronic small vessel ischemic changes without acute intracranial process is seen at this time. CT angiogram showed no significant abnormalities seen. Consider MRI as indicated. Chest x-ray showed chronic changes and cardiomegaly without acute pulmonary process EKG showed normal sinus rhythm with sinus arrhythmia RI of the brain was done this morning showed subacute ischemia posterior limb internal capsule on the right as well as in the right parietal lobe. There is evidence of chronic small vessel ischemia and age-related atrophy. 2D echocardiogram showed ejection fraction of 55 to 60%, moderate mitral annular calcification. A sending aortic root is dilated and measures 4.2 cm. EKG interpretation: Ventricular rate 77, normal sinus,. Interval 90, QRS 90, QTC 482. No IN prolongation, no QTC prolongation, no ST or T-wave changes noted. EKG compared to 02/19/2017 showing no changes. Overall, this EKG is unremarkable 02/14/2020 Patient is currently sitting in a chair. Speech is better and facial muscle weakness with slight improvement. Was able to tolerate pureed diet. Patient is part spreading in physical therapy and speech therapy. No complaints of chest pain or shortness of breath. No fever no chills. No cough or sputum production. No nausea vomiting or abdominal pain or diarrhea. Next and Current medications reviewed. 02/15/2020 Patient is currently sitting with bed. Awake alert oriented 3. Able to tolerate a dysphagia level I diet and is participating in PT OT and speech therapy. Otherwise blood pressure was elevated with SBP greater than 200s last night and was started on lisinopril 20 mg daily. Next and patient is also getting atenolol/hydrochlorothiazide and verapamil as per her home regimen. Patient be continued on aspirin and statins. Denied any new weakness numbness or visual disturbance. Neurology is following. Current medications reviewed Objective - Vital Signs Vital signs: Vital Signs Temp 98.1 F 02/15/20 08:20 Pulse 57 L 02/15/20 11:20 Resp 18 02/15/20 11:20 BP 200/94 02/15/20 11:20 Pulse Ox 95 02/15/20 11:20 Intake & Output 02/14/20 02/15/20 02/15/20 18:59 06:59 18:59 Intake Total 540 210 Output Total 1501 200 Balance -961 -200 210 Weight 91.2 kg Intake: Oral 540 210 Output: Urine 1501 200 Other: Voiding Method Bedside Commode Diaper Incontinent # Voids 300 1 1 # Bowel Movements 0 - Exam PHYSICAL EXAMINATION: Patient is lying in the bed comfortably, no acute distress, awake alert and oriented.. HEENT: Normocephalic. Neck is supple. Pupils reactive. Nostrils clear. Oral cavity is moist. Ears reveal no drainage. Neck reveals no JVD, carotid bruits, or thyromegaly. CHEST EXAMINATION: Trachea is central. Symmetrical expansion. Lung lance clear to auscultation and percussion. CARDIAC: Normal S1, S2 with no gallops. No murmurs ABDOMEN: Soft. Bowel sounds normal. No organomegaly. No abdominal bruits. Extremities: reveal no edema. No clubbing or cyanosis Neurologically awake, alert, oriented x3 . Left lower facial weakness, not aphasic, mild dysarthria, no drift to the left lower extremity. No sensory deficits. Mild left periorbital weakness. Skin: No rash or skin lesions. Psychiatric: Coperative. Nonsuicidal Musculoskeletal: No joint swelling or deformity. Normal range of motion. - Labs CBC & Chem 7: 02/13/20 05:53 02/13/20 05:53 Assessment and Plan Assessment: Acute CVA with left facial weakness and slurred speech with sensory deficit. Improving clinically. Subacute ischemia posterior limb internal capsule on the right as well as in the right parietal lobe Uncontrolled Hypertension Hyperlipidemia COPD Obstructive sleep apnea on CPAP at home Currently ongoing nicotine addiction History of breast cancer status post chemoradiation Depression DVT prophylaxis Plan: Patient will be continued on aspirin and statins. Titrate blood pressure medications. Continue with home medications and PT OT, speech therapy was consulted. Neurology is following. Neurochecks. Continue to follow closely. Anticipate discharged to rehab. Time with Patient: Greater than 30
[2020-02-16 10:49] LABS: Potassium 4.1 mmol/L (3.5-5.1)
[2020-02-16 11:41] LABS: Basophils # (A) 0.1 k/uL (0-0.2); Basophils % (A) 1 %; Eosinophils # (A) 0.4 k/uL (0-0.7); Eosinophils % (A) 4 %; HCT 47.4 % (34.0-46.0); HGB 16.6 gm/dL (11.4-16.0); Lymphocytes # (A) 2.3 k/uL (1.0-4.8); Lymphocytes % (A) 23 %; MCHC 34.9 g/dL (31.0-37.0); MCV 91.5 fL (80.0-100.0); Mean Platelet Volume 8.4; Monocytes # (A) 0.9 k/uL (0-1.0); Monocytes % (A) 9 %; Neutrophils # (A) 6.2 k/uL (1.3-7.7); Neutrophils % (A) 61 %; Platelet Count 320 k/uL (150-450); RBC 5.18 m/uL (3.80-5.40); RDW 13.3 % (11.5-15.5); WBC 10.2 k/uL (3.8-10.6)
[2020-02-16 12:06] VITALS: BP 118/82; PULSE 60; RESP 18
[2020-02-16] MEDS: VERAPAMIL SR 120 MG TABLET.ER PO SCH (13:00)
--- NOTE | 2020-02-16 14:35 | P.DS ---
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 Improving clinically. Subacute ischemia posterior limb internal capsule on the right as well as in the right parietal lobe Uncontrolled Hypertension Hyperlipidemia COPD Obstructive sleep apnea on CPAP at home Currently ongoing nicotine addiction History of breast cancer status post chemoradiation Depression DVT prophylaxis heparin subcu Hospital course Patient is a 79-year-old female with a known history of hypertension, hyperlipidemia, COPD, currently everyday smoker, obstructive sleep apnea on CPAP at home, history of breast cancer left status post chemo and radiation, depression and other multiple medical problems presents to ER with complaints of left facial weakness and slurred speech. Patient symptoms started around 1 PM yesterday. EMS was called due to strokelike symptoms.She was last seen normal by family members at approximately 1 PM. 1:30 she had a phone call with one of her family members and they noted that she did have some slight slurring of her speech. Patient denies any history of stroke. Denied any numbness. No tingling sensation in the extremities. Patient is somewhat poor historian. NIH score was 3 on admission. Patient did have left facial droop concerning symptoms are improving since the time of onset and low NIH score patient was not a candidate for TPA, was not administered. CT brain showed age-related atrophic and chronic small vessel ischemic changes without acute intracranial process is seen at this time. CT angiogram showed no significant abnormalities seen. Consider MRI as indic ated. Chest x-ray showed chronic changes and cardiomegaly without acute pulmonary process EKG showed normal sinus rhythm with sinus arrhythmia RI of the brain was done this morning showed subacute ischemia posterior limb internal capsule on the right as well as in the right parietal lobe. There is evidence of chronic small vessel ischemia and age-related atrophy. 2D echocardiogram showed ejection fraction of 55 to 60%, moderate mitral annular calcification. A sending aortic root is dilated and measures 4.2 cm. EKG interpretation: Ventricular rate 77, normal sinus,. Interval 90, QRS 90, QTC 482. No TN prolongation, no QTC prolongation, no ST or T-wave changes noted. EKG compared to 02/19/2017 showing no changes. Overall, this EKG is unremarkable 02/14/2020 Patient is currently sitting in a chair. Speech is better and facial muscle weakness with slight improvement. Was able to tolerate pureed diet. Patient is part spreading in physical therapy and speech therapy. No complaints of chest pain or shortness of breath. No fever no chills. No cough or sputum production. No nausea vomiting or abdominal pain or diarrhea. Next and Current medications reviewed. 02/15/2020 Patient is currently sitting with bed. Awake alert oriented 3. Able to tolerate a dysphagia level I diet and is participating in PT OT and speech therapy. Otherwise blood pressure was elevated with SBP greater than 200s last night and was started on lisinopril 20 mg daily. Next and patient is also getting atenolol/hydrochlorothiazide and verapamil as per her home regimen. Patient be continued on aspirin and statins. Denied any new weakness numbness or visual disturbance. Neurology is following. 02/16/2020 Patient is currently sitting in the bed comfortably. Facial weakness is much better. Tolerating oral diet and participating in physical therapy. Patient be discharged to rehab. Continue with aspirin, Plavix and statins and new blood pressure medication, lisinopril was added along with her home blood pressure medications. Patient is being discharged today. PHYSICAL EXAMINATION: Patient is lying in the bed comfortably, no acute distress, awake alert and oriented.. HEENT: Normocephalic. Neck is supple. Pupils reactive. Nostrils clear. Oral cavity is moist. Ears reveal no drainage. Neck reveals no JVD, carotid bruits, or thyromegaly. CHEST EXAMINATION: Trachea is central. Symmetrical expansion. Lung lance clear to auscultation and percussion. CARDIAC: Normal S1, S2 with no gallops. No murmurs ABDOMEN: Soft. Bowel sounds normal. No organomegaly. No abdominal bruits. Extremities: reveal no edema. No clubbing or cyanosis Neurologically awake, alert, oriented x3 . Left lower facial weakness, not aphasic, mild dysarthria, no drift to the left lower extremity. No sensory deficits. Mild left periorbital weakness. Skin: No rash or skin lesions. Psychiatric: Coperative. Nonsuicidal Musculoskeletal: No joint swelling or deformity. Normal range of motion. Vital Signs 02/16/20 02/16/20 08:00 12:00 Temperature 97.8 F Pulse Rate [ 64 60 Pulse Oximetery ] Respiratory 17 18 Rate Blood Pressure 126/79 118/82 [Right Arm] O2 Sat by Pulse 94 L 98 Oximetry Total time taken greater than 35 minutes including 18 minutes for counseling and coordination of care. Patient Condition at Discharge: Fair Plan - Discharge Summary Discharge Rx Participant: Yes New Discharge Prescriptions: New Aspirin 81 mg PO DAILY #30 chew Clopidogrel [Plavix] 75 mg PO DAILY #30 tab Lisinopril [Zestril] 20 mg PO DAILY #30 tab Continue Atorvastatin [Lipitor] 20 mg PO HS Atenolol/Chlorthalidone [Atenolol-Chlorthalidone 50-25] 1 tab PO HS Fluticasone/Salmeterol [Advair 250-50 Diskus] 1 puff INHALATION RT-DAILY PRN PRN Reason: Shortness Of Breath Tiotropium [place] [Spiriva] 1 cap INHALATION RT-DAILY PRN PRN Reason: Shortness Of Breath Cholecalciferol [Vitamin D3 (25 Mcg = 1000 Iu)] 2,000 unit PO BID Albuterol Nebulized [Ventolin Nebulized] 2.5 mg INHALATION RT-QID PRN PRN Reason: Shortness Of Breath Cyanocobalamin (Vitamin B-12) [Vitamin B-12] 1,000 mcg PO BID Diclofenac Sodium [Voltaren Gel] 1 applic TOPICAL DAILY PRN PRN Reason: Pain Verapamil HCl [Calan] 120 mg PO W/LUNCH Potassium Chloride [Klor-Con 10] 10 meq PO HS Potassium Chloride [Klor-Con 20] 20 meq PO HS buPROPion HCL [Wellbutrin XL] 150 mg PO HS Acetaminophen [Tylenol Extra Strength] 500 mg PO DIRECTED PRN PRN Reason: Pain Glucos Sul 2Kcl/MSM/Chond/C/Mn [Glucosamine Chondroitin Cap] 1 cap PO HS Multivitamins, Thera [Multivitamin (formulary)] 1 tab PO HS Albuterol Sulfate [Ventolin HFA] 1 - 2 puff INHALATION Q6H PRN PRN Reason: Shortness Of Breath Discharge Medication List Atenolol/Chlorthalidone [Atenolol-Chlorthalidone 50-25] 1 tab PO HS 02/26/17 [History] Atorvastatin [Lipitor] 20 mg PO HS 02/26/17 [History] Albuterol Nebulized [Ventolin Nebulized] 2.5 mg INHALATION RT-QID PRN 03/09/17 [History] Cholecalciferol [Vitamin D3 (25 Mcg = 1000 Iu)] 2,000 unit PO BID 03/09/17 [History] Fluticasone/Salmeterol [Advair 250-50 Diskus] 1 puff INHALATION RT-DAILY PRN 03/09/17 [History] Tiotropium [place] [Spiriva] 1 cap INHALATION RT-DAILY PRN 03/09/17 [History] Cyanocobalamin (Vitamin B-12) [Vitamin B-12] 1,000 mcg PO BID 11/09/18 [History] Diclofenac Sodium [Voltaren Gel] 1 applic TOPICAL DAILY PRN 11/09/18 [History] Acetaminophen [Tylenol Extra Strength] 500 mg PO DIRECTED PRN 06/16/19 [History] Potassium Chloride [Klor-Con 10] 10 meq PO HS 06/16/19 [History] Potassium Chloride [Klor-Con 20] 20 meq PO HS 06/16/19 [History] Verapamil HCl [Calan] 120 mg PO W/LUNCH 06/16/19 [History] buPROPion HCL [Wellbutrin XL] 150 mg PO HS 06/16/19 [History] Albuterol Sulfate [Ventolin HFA] 1 - 2 puff INHALATION Q6H PRN 02/12/20 [History] Glucos Sul 2Kcl/MSM/Chond/C/Mn [Glucosamine Chondroitin Cap] 1 cap PO HS 02/12/20 [History] Multivitamins, Thera [Multivitamin (formulary)] 1 tab PO HS 02/12/20 [History] Aspirin 81 mg PO DAILY #30 chew 02/16/20 [Rx] Clopidogrel [Plavix] 75 mg PO DAILY #30 tab 02/16/20 [Rx] Lisinopril [Zestril] 20 mg PO DAILY #30 tab 02/16/20 [Rx] Follow up Appointment(s)/Referral(s): Viktor Walter DO [Primary Care Provider] - 1-2 days Discharge Disposition: TRANSFER TO SNF/F
[2020-02-16 17:25] LABS: Folate, Serum 21.1 ng/mL
--- NOTE | 2020-02-18 08:06 | CDI ---
Documentation Clarification Form Date: 02/18/20 From: Eduarda Larry Phone: If you have a question about this query, please contact Kamini Marroquin, [employer] Supervisor at [phone] between 8am and 5pm. Admit Date: 02/12/20 Discharge Date:02/16/20 Patient Name: Kelsi Ennis Visit Number: [id number] ATTENTION: The Clinical Documentation Specialists (CDI) and [facility] Coding Staff appreciate your assistance in clarifying documentation. Please respond to the clarification below the line at the bottom and electronically sign. The CDI & [facility] Coding staff will review the response and follow-up if needed. Please note: Queries are made part of the Legal Health Record. If you have any questions, please contact the author of this message via ITS. Dear Dr. Longoria The patient presented with the following: CVA with left facial weakness and dysarthria. Uncontrolled hypertension is documented in your 02/14 and discharge summary. History/Risk Factors: Hypertension, obstructive sleep apnea Clinical Indicators: Elevated blood pressure Vital Signs: T. 97.8, P. 78, R. 18, BP 169/96 Blood Pressures: 02/11 - 212/104, 217/103; 02/13 - 211/91, 197/89, 196/89, 229/103; 02/14 - 200/94, 200/85 Treatment: Started on Lisinopril 20 mg daily In your professional opinion, can you please clarify the uncontrolled hypertension? Urgency Emergency Crisis Other, please specify Unable to determine Emergency MTDD
[2020-02-29 15:02] LABS: Appearance,Urine Clear (Clear); Bilirubin,Urine Negative (Negative); Blood,Urine Negative (Negative); Color,Urine Yellow; Glucose,Urine (UA) Negative (Negative); Hyaline Casts,Urine 1 /lpf (0-2); Ketones,Urine Negative (Negative); Leukocyte Esterase,Urine Moderate (Negative); Mucus,Urine Occasional /hpf; Nitrite,Urine Negative (Negative); PH, Urine 5.5 (5.0-8.0); Protein,Urine Negative (Negative); RBC,Urine 1 /hpf (0-5); Specific Gravity,Urine 1.021 (1.001-1.035); Squamous Epithelial Cell,Urine <1 /hpf (0-4); Urobilinogen,Urine <2.0 mg/dL (<2.0); WBC,Urine 25 /hpf (0-5)
== END 2020-02-16 16:19 | DRG 65 ==
LOC: EC 15:24 → 3SCARD 17:27
PROVIDERS: ADMIT Internal Medicine; ATTEND Internal Medicine
DX: I63.89 Other cerebral infarction (principal); I16.1 Hypertensive emergency; I11.9 Hypertensive heart disease without heart failure; R47.1 Dysarthria and anarthria; R29.810 Facial weakness; R29.703 NIHSS score 3; D72.829 Elevated white blood cell count, unspecified; E78.5 Hyperlipidemia, unspecified; F17.210 Nicotine dependence, cigarettes, uncomplicated; F32.9 Major depressive disorder, single episode, unspecified; G47.33 Obstructive sleep apnea (adult) (pediatric); I73.9 Peripheral vascular disease, unspecified; J44.9 Chronic obstructive pulmonary disease, unspecified; M19.90 Unspecified osteoarthritis, unspecified site; Z11.59 Encounter for screening for other viral diseases; R32 Unspecified urinary incontinence; E66.9 Obesity, unspecified; Z68.31 Body mass index [BMI] 31.0-31.9, adult; Z96.611 Presence of right artificial shoulder joint; Z79.82 Long term (current) use of aspirin; Z79.899 Other long term (current) drug therapy; Z92.3 Personal history of irradiation; Z92.21 Personal history of antineoplastic chemotherapy; Z90.710 Acquired absence of both cervix and uterus; Z85.3 Personal history of malignant neoplasm of breast; Z90.13 Acquired absence of bilateral breasts and nipples; Z96.651 Presence of right artificial knee joint; Z80.3 Family history of malignant neoplasm of breast; Z80.41 Family history of malignant neoplasm of ovary; W19.XXXA Unspecified fall, initial encounter
CPT/HCPCS: 36415; 70450; 70496; 70498; 70551; 71046; 74230; 80048; 80053; 80061; 81001; 82607; 82746; 82747; 83036; 83735; 84207; 84443; 84484; 85025; 85610; 85730; 87077; 87086; 87186; 93005; 93306; 94640; 94660; 96360; 99285

== ENCOUNTER 2020-02-26 19:28 | Emergency (ER) | payer MEDICARE ==
--- NOTE | 2020-02-26 19:45 | ED ---
General Adult HPI - General Chief complaint: Fall Stated complaint: Fall Time Seen by Provider: 02/26/20 19:29 Source: patient, EMS Mode of arrival: EMS Limitations: no limitations - History of Present Illness Initial comments: Dictation was produced using [employer] dictation software. please excuse any grammatical, word or spelling errors. This patient was cared for during a federal and state declared state of emergency secondary to Covid 19 Chief Complaint: 79-year-old female past medical history of COPD, CVA, hypertension presents after fall. History of Present Illness: 79-year-old female she is currently a resident at [facility]. Patient currently resident there for rehabilitation secondary to CVA. Reports she has residual left-sided lower extremity weakness. She states she stood up return when she lost her balance. She states she fell down and struck the left side of her head. Patient denies any loss of consciousness. She denies any headache or neck pain. EMS was called patient's transfer to the emergency department. The ROS documented in this emergency department record has been reviewed and con firmed by me. Those systems with pertinent positive or negative responses have been documented in the HPI. All other systems are other negative and/or noncontributory. PHYSICAL EXAM: General Impression: Alert and oriented x3, not in acute distress HEENT: Small area of bleeding with 2 mm laceration, extra-ocular movements intact, pupils equal and reactive to light bilaterally, mucous membranes moist. Cardiovascular: Heart regular rate and rhythm Chest: Able to complete full sentences, no retractions, no tachypnea Abdomen: abdomen soft, non-tender, non-distended, no organomegaly Musculoskeletal: Pulses present and equal in all extremities, no peripheral edema, , no cervical spinal tenderness, no pain with left and right neck rotation Motor: no focal deficits noted Neurological: CN II-XII grossly intact, no focal motor or sensory deficits noted Skin: Intact with no visualized rashes Psych: Normal affect and mood ED course: 79-year-old female presents today with mechanical fall. Upon arrival are within acceptable limits. Patient's well-appearing. She does not have any complaints. Computed tomography scan of the head and C-spine shows no acute intracranial abnormalities. Patient is well-appearing. Patient ambulatory at baseline. She denies any pain. She feels at baseline. One staple was placed over small laceration over the left parietal head. Patient clear for discharge. She is told to have the staple removed in approximately 10 days. - Related Data Home Medications Medication Instructions Recorded Confirmed Atenolol/Chlorthalidone 1 tab PO HS 02/26/17 02/12/20 [Atenolol-Chlorthalidone 50-25] Atorvastatin [Lipitor] 20 mg PO HS 02/26/17 02/12/20 Albuterol Nebulized [Ventolin 2.5 mg INHALATION RT-QID PRN 03/09/17 02/12/20 Nebulized] Cholecalciferol [Vitamin D3 (25 2,000 unit PO BID 03/09/17 02/12/20 Mcg = 1000 Iu)] Fluticasone/Salmeterol [Advair 1 puff INHALATION RT-DAILY PRN 03/09/17 02/12/20 250-50 Diskus] Tiotropium [place] [Spiriva] 1 cap INHALATION RT-DAILY PRN 03/09/17 02/12/20 Cyanocobalamin (Vitamin B-12) 1,000 mcg PO BID 11/09/18 02/12/20 [Vitamin B-12] Diclofenac Sodium [Voltaren Gel] 1 applic TOPICAL DAILY PRN 11/09/18 02/12/20 Acetaminophen [Tylenol Extra 500 mg PO DIRECTED PRN 06/16/19 02/12/20 Strength] Potassium Chloride [Klor-Con 10] 10 meq PO HS 06/16/19 02/12/20 Potassium Chloride [Klor-Con 20] 20 meq PO HS 06/16/19 02/12/20 Verapamil HCl [Calan] 120 mg PO W/LUNCH 06/16/19 02/12/20 buPROPion HCL [Wellbutrin XL] 150 mg PO HS 06/16/19 02/12/20 Albuterol Sulfate [Ventolin HFA] 1 - 2 puff INHALATION Q6H PRN 02/12/20 02/12/20 Glucos Sul 2Kcl/MSM/Chond/C/Mn 1 cap PO HS 02/12/20 02/12/20 [Glucosamine Chondroitin Cap] Multivitamins, Thera [Multivitamin 1 tab PO HS 02/12/20 02/12/20 (formulary)] Previous Rx's Medication Instructions Recorded Aspirin 81 mg PO DAILY #30 chew 02/16/20 Clopidogrel [Plavix] 75 mg PO DAILY #30 tab 02/16/20 lisinopriL [Zestril] 20 mg PO DAILY #30 tab 02/16/20 Allergies Allergy/AdvReac Type Severity Reaction Status Date / Time No Known Allergies Allergy Verified 02/26/20 20:01 Review of Systems ROS Statement: Those systems with pertinent positive or pertinent negative responses have been documented in the HPI. ROS Other: All systems not noted in ROS Statement are negative. 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" R knee and R shoulder replacement Past Anesthesia/Blood Transfusion Reactions: No Reported Reaction Additional Past Anesthesia/Blood Transfusion Reaction / Comment(s): no hx blood transfusion Past Psychological History: Depression Smoking Status: Current every day smoker Past Alcohol Use History: None Reported Past Drug Use History: None Reported - Past Family History Sister(s) Family Medical History: Cancer Additional Family Medical History / Comment(s): 2 sisters had breast ca, one sister had ovarian ca Daughter(s) Family Medical History: Cancer Additional Family Medical History / Comment(s): breast CA General Exam Limitations: no limitations Course Vital Signs 02/26/20 19:31 Temperature 98.6 F Pulse Rate 74 Respiratory 19 Rate Blood Pressure 148/96 O2 Sat by Pulse 97 Oximetry Procedures - Laceration Laceration #1 Consent Obtained: verbal consent Indication: laceration Site: scalp Description: linear (2mm) Size of Sutures: other (staple) Technique: other (staple) Patient Tolerated Procedure: well Disposition Clinical Impression: Fall, Head contusion, Scalp laceration Disposition: HOME SELF-CARE Condition: Good Instructions (If sedation given, give patient instructions): Fall Prevention for Older Adults (ED) Is patient prescribed a controlled substance at d/c from ED?: No Referrals: Zohaib Mueller MD [Primary Care Provider] - 1-2 days Time of Disposition: 21:03
--- NOTE | 2020-02-26 20:23 | CT ---
EXAMINATION TYPE: CT brain michael wo con DATE OF EXAM: 02/26/2020 COMPARISON: 02/12/2020 HISTORY: Fall, left sided head injury. CT DLP: 1538.6 mGycm Automated exposure control for dose reduction was used. There is some patchy hypodensity in the periventricular white matter. There is no mass effect nor mid line shift. There is no sign of intracranial hemorrhage. The calvarium is intact. Skull base is intac t. There is normal aeration of the temporal bones. Cervical vertebra have normal alignment. There is disc space narrowing at C5-6 and C6-7 with spurring . There is hypertrophic mild cervical facet arthropathy. There is no evidence of cervical spine fract ure. IMPRESSION: Chronic small vessel ischemia. No acute intracranial abnormality. Brain unchanged compared to old exa m. Minor degenerative disc changes in the lower cervical spine. No fracture.
[2020-02-26 21:41] VITALS: BP 132/82; PULSE 90; RESP 17; TEMP 97.5
== END 2020-02-26 22:57 | disposition home or self-care (01) ==
LOC: EC 19:28
DX: S01.01XA Laceration without foreign body of scalp, initial encounter (principal); I69.354 Hemiplegia and hemiparesis following cerebral infarction affecting left non-dominant side; R53.1 Weakness; F17.200 Nicotine dependence, unspecified, uncomplicated; J44.9 Chronic obstructive pulmonary disease, unspecified; F32.9 Major depressive disorder, single episode, unspecified; E78.5 Hyperlipidemia, unspecified; I10 Essential (primary) hypertension; M19.90 Unspecified osteoarthritis, unspecified site; G47.30 Sleep apnea, unspecified; Z79.51 Long term (current) use of inhaled steroids; Z79.899 Other long term (current) drug therapy; Z85.3 Personal history of malignant neoplasm of breast; Z92.21 Personal history of antineoplastic chemotherapy; Z92.3 Personal history of irradiation; Z99.89 Dependence on other enabling machines and devices; Z90.13 Acquired absence of bilateral breasts and nipples; Z96.611 Presence of right artificial shoulder joint; Z96.651 Presence of right artificial knee joint; W18.39XA Other fall on same level, initial encounter; Y92.89 Other specified places as the place of occurrence of the external cause
CPT/HCPCS: 12001; 70450; 72125; 93005; 99284

== ENCOUNTER 2020-03-21 13:23 | Observation (INO) | payer MEDICARE ==
[2020-03-21] MEDS ORDERED: SODIUM CHLORIDE 0.9% 1,000 ML IV STA ×2 (13:45→15:46)
--- NOTE | 2020-03-21 13:46 | ED ---
Abdominal Pain HPI - General Chief Complaint: Abdominal Pain Stated Complaint: Abdominal Pain Time Seen by Provider: 03/21/20 13:43 Source: patient, family, RN notes reviewed, old records reviewed Mode of arrival: wheelchair Limitations: no limitations - History of Present Illness Initial Comments: This is a 79-year-old female DF for evaluation patient Dese for evaluation of abdominal pain dehydration. Patient was sent from doctor's office she was re cently at [facility] for recovery from CVA coming in for likely dehydration with increased abdominal pain today. Mild nausea no vomiting no fevers. MD Complaint: abdominal pain -: days(s) Location: diffuse, epigastric, suprapubic Radiation: epigastric, suprapubic Migration to: no migration Severity: mild Severity scale (1-10): 3 Quality: stabbing, aching Consistency: constant Improves With: nothing Worsens With: nothing Associated Symptoms: nausea, diarrhea - Related Data Home Medications Medication Instructions Recorded Confirmed Atenolol/Chlorthalidone 1 tab PO HS@209902/26/17 03/21/20 [Atenolol-Chlorthalidone 50-25] Atorvastatin [Lipitor] 20 mg PO HS@209902/26/17 03/21/20 Cholecalciferol [Vitamin D3 (25 2,000 unit PO BID 03/09/17 03/21/20 Mcg = 1000 Iu)] Cyanocobalamin (Vitamin B-12) 1,000 mcg PO BID 11/09/18 03/21/20 [Vitamin B-12] Acetaminophen [Tylenol Extra 500 mg PO Q6H PRN 06/16/19 03/21/20 Strength] Verapamil HCl [Calan] 120 mg PO DAILY@1200 06/16/19 03/21/20 buPROPion HCL [Wellbutrin XL] 150 mg PO HS@209906/16/19 03/21/20 Albuterol Sulfate [Ventolin HFA] 1 puff INHALATION RT-Q6H PRN 02/12/20 03/21/20 Glucos Sul 2Kcl/MSM/Chond/C/Mn 1 cap PO HS@209902/12/20 03/21/20 [Glucosamine Chondroitin Cap] Multivitamins, Thera [Multivitamin 1 tab PO HS@209902/12/20 03/21/20 (formulary)] Aspirin 81 mg PO DAILY@0903/21/20 03/21/20 Clopidogrel [Plavix] 75 mg PO DAILY@0903/21/20 03/21/20 Fluticasone Propion/Salmeterol 1 puff INHALATION RT-BID 03/21/20 03/21/20 [Wixela 250-50 Inhub] lisinopriL [Zestril] 20 mg PO DAILY@0900 03/21/20 03/21/20 Allergies Allergy/AdvReac Type Severity Reaction Status Date / Time No Known Allergies Allergy Verified 03/21/20 14:46 Review of Systems ROS Statement: Those systems with pertinent positive or pertinent negative responses have been documented in the HPI. ROS Other: All systems not noted in ROS Statement are negative. Past Medical History Past Medical History: Cancer, COPD, CVA/TIA, Hyperlipidemia, Hypertension, Osteoarthritis (OA), Sleep Apnea/CPAP/BIPAP Additional Past Medical History / Comment(s): breast ca x2 left breast-received radiation and chemo 2003 & 2008,uses cpap History of Any Multi-Drug Resistant Organisms: None Reported Past Surgical History: Breast Surgery, Hysterectomy Additional Past Surgical History / Comment(s): left breast lumpectomy 1996, had chemo and radiation, repeat breast ca left, had freddie mastectomy with reconstruction-with 1 implant remains and 1 implant removed r/t infection 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" R knee and R shoulder replacement Past Anesthesia/Blood Transfusion Reactions: No Reported Reaction Additional Past Anesthesia/Blood Transfusion Reaction / Comment(s): no hx blood transfusion Past Psychological History: Depression Smoking Status: Former smoker Past Alcohol Use History: None Reported Past Drug Use History: None Reported - Past Family History Sister(s) Family Medical History: Cancer Additional Family Medical History / Comment(s): 2 sisters had breast ca, one sister had ovarian ca Daughter(s) Family Medical History: Cancer Additional Family Medical History / Comment(s): breast CA General Exam Limitations: no limitations General appearance: alert, in no apparent distress Head exam: Present: atraumatic, normocephalic, normal inspection Eye exam: Present: normal appearance, PERRL, EOMI. Absent: scleral icterus, conjunctival injection, periorbital swelling ENT exam: Present: normal exam, mucous membranes moist Neck exam: Present: normal inspection. Absent: tenderness, meningismus, lymphadenopathy Respiratory exam: Present: normal lung sounds bilaterally. Absent: respiratory distress, wheezes, rales, rhonchi, stridor Cardiovascular Exam: Present: regular rate, normal rhythm, normal heart sounds. Absent: systolic murmur, diastolic murmur, rubs, gallop, clicks GI/Abdominal exam: Present: soft, normal bowel sounds. Absent: distended, tenderness, guarding, rebound, rigid Extremities exam: Present: normal inspection, full ROM, normal capillary refill. Absent: tenderness, pedal edema, joint swelling, calf tenderness Back exam: Present: normal inspection Neurological exam: Present: alert, oriented X3, CN II-XII intact Psychiatric exam: Present: normal affect, normal mood Skin exam: Present: warm, dry, intact, normal color. Absent: rash Course Vital Signs 03/21/20 13:32 Temperature 98.4 F Pulse Rate 68 Respiratory 18 Rate Blood Pressure 107/65 O2 Sat by Pulse 95 Oximetry - Reevaluation(s) Reevaluation #1: 03/21/20 13:49 Medical records reviewed Reevaluation #2: 03/21/20 15:48 Patient does feel better with hydration Reevaluation #3: 03/21/20 15:48 Patient's informed of results questions are answered - Consultations Consultation #1: Spoke with [facility] agrees to admit this patient Medical Decision Making - Medical Decision Making 79 female DF for evaluation of weakness and dehydration abdominal pain found of urinary tract infection will place on IV antibiotics and hydration - Lab Data Result diagrams: 03/21/20 13:51 03/21/20 13:51 Lab Results 03/21/20 03/21/20 03/21/20 Range/Units 13:51 13:51 13:51 WBC 8.5 (3.8-10.6) k/uL RBC 4.61 (3.80-5.40) m/uL Hgb 14.5 (11.4-16.0) gm/dL Hct 41.5 (34.0-46.0) % MCV 89.8 (80.0-100.0) fL MCH 31.5 (25.0-35.0) pg MCHC 35.0 (31.0-37.0) g/dL RDW 12.8 (11.5-15.5) % Plt Count 302 (150-450) k/uL Neutrophils % 64 % Lymphocytes % 25 % Monocytes % 6 % Eosinophils % 3 % Basophils % 1 % Neutrophils # 5.5 (1.3-7.7) k/uL Lymphocytes # 2.1 (1.0-4.8) k/uL Monocytes # 0.5 (0-1.0) k/uL Eosinophils # 0.2 (0-0.7) k/uL Basophils # 0.1 (0-0.2) k/uL Sodium 139 (137-145) mmol/L Potassium 3.5 (3.5-5.1) mmol/L Chloride 105 (98-107) mmol/L Carbon Dioxide 27 (22-30) mmol/L Anion Gap 7 mmol/L BUN 18 H (7-17) mg/dL Creatinine 1.40 H (0.52-1.04) mg/dL Est GFR (CKD-EPI)AfAm 42 (>60 ml/min/1.73 sqM) Est GFR (CKD-EPI)NonAf 36 (>60 ml/min/1.73 sqM) Glucose 128 H (74-99) mg/dL Plasma Lactic Acid Lex (0.7-2.0) mmol/L Calcium 9.7 (8.4-10.2) mg/dL Total Bilirubin 0.9 (0.2-1.3) mg/dL AST 24 (14-36) U/L ALT 21 (4-34) U/L Alkaline Phosphatase 111 (38-126) U/L Creatine Kinase 36 (30-135) U/L Troponin I (0.000-0.034) ng/mL Total Protein 6.5 (6.3-8.2) g/dL Albumin 3.9 (3.5-5.0) g/dL Amylase 59 (30-110) U/L Lipase 126 (23-300) U/L Urine Color Yellow Urine Appearance Cloudy H (Clear) Urine pH 5.5 (5.0-8.0) Ur Specific [place] 1.020 (1.001-1.035) Urine Protein Negative (Negative) Urine Glucose (UA) Negative (Negative) Urine Ketones Negative (Negative) Urine Blood Negative (Negative) Urine Nitrite Positive H (Negative) Urine Bilirubin Negative (Negative) Urine Urobilinogen <2.0 (<2.0) mg/dL Ur Leukocyte Esterase Large H (Negative) Urine RBC 1 (0-5) /hpf Urine WBC 85 H (0-5) /hpf Urine WBC Clumps Occasional H (None) /hpf Ur Squamous Epith Cells 3 (0-4) /hpf Urine Bacteria Few H (None) /hpf Hyaline Casts 3 H (0-2) /lpf Urine Mucus Rare H (None) /hpf 03/21/20 03/21/20 Range/Units 13:51 13:51 WBC (3.8-10.6) k/uL RBC (3.80-5.40) m/uL Hgb (11.4-16.0) gm/dL Hct (34.0-46.0) % MCV (80.0-100.0) fL MCH (25.0-35.0) pg MCHC (31.0-37.0) g/dL RDW (11.5-15.5) % Plt Count (150-450) k/uL Neutrophils % % Lymphocytes % % Monocytes % % Eosinophils % % Basophils % % Neutrophils # (1.3-7.7) k/uL Lymphocytes # (1.0-4.8) k/uL Monocytes # (0-1.0) k/uL Eosinophils # (0-0.7) k/uL Basophils # (0-0.2) k/uL Sodium (137-145) mmol/L Potassium (3.5-5.1) mmol/L Chloride (98-107) mmol/L Carbon Dioxide (22-30) mmol/L Anion Gap mmol/L BUN (7-17) mg/dL Creatinine (0.52-1.04) mg/dL Est GFR (CKD-EPI)AfAm (>60 ml/min/1.73 sqM) Est GFR (CKD-EPI)NonAf (>60 ml/min/1.73 sqM) Glucose (74-99) mg/dL Plasma Lactic Acid Lex 1.2 (0.7-2.0) mmol/L Calcium (8.4-10.2) mg/dL Total Bilirubin (0.2-1.3) mg/dL AST (14-36) U/L ALT (4-34) U/L Alkaline Phosphatase (38-126) U/L Creatine Kinase (30-135) U/L Troponin I <0.012 (0.000-0.034) ng/mL Total Protein (6.3-8.2) g/dL Albumin (3.5-5.0) g/dL Amylase (30-110) U/L Lipase (23-300) U/L Urine Color Urine Appearance (Clear) Urine pH (5.0-8.0) Ur Specific [place] (1.001-1.035) Urine Protein (Negative) Urine Glucose (UA) (Negative) Urine Ketones (Negative) Urine Blood (Negative) Urine Nitrite (Negative) Urine Bilirubin (Negative) Urine Urobilinogen (<2.0) mg/dL Ur Leukocyte Esterase (Negative) Urine RBC (0-5) /hpf Urine WBC (0-5) /hpf Urine WBC Clumps (None) /hpf Ur Squamous Epith Cells (0-4) /hpf Urine Bacteria (None) /hpf Hyaline Casts (0-2) /lpf Urine Mucus (None) /hpf - Radiology Data Radiology results: report reviewed (X-ray abdominal series and chest is negative), image reviewed Disposition Clinical Impression: UTI (urinary tract infection), Abdominal pain, Weakness, Dehydration Disposition: ADMITTED IP TO THIS [facility] Condition: Fair Is patient prescribed a controlled substance at d/c from ED?: No Referrals: Viktor Walter DO [Primary Care Provider] - 1-2 days
--- NOTE | 2020-03-21 14:11 | XR ---
EXAMINATION TYPE: XR KUB DATE OF EXAM: 03/21/2020 COMPARISON: NONE HISTORY: Abdominal pain TECHNIQUE: One view abdominal series FINDINGS: The osseous structures are intact. The bowel gas pattern is nonspecific. Arthropathy of the hips. Va scular calcifications noted. Diffuse osteopenia. Lung bases are clear. IMPRESSION: 1. Nonspecific abdomen.
[2020-03-21 14:18] LABS: Albumin 3.9 g/dL (3.5-5.0); Calcium 9.7 mg/dL (8.4-10.2); Potassium 3.5 mmol/L (3.5-5.1); Total Bilirubin 0.9 mg/dL (0.2-1.3); Total Protein 6.5 g/dL (6.3-8.2)
[2020-03-21 14:57] LABS: Appearance,Urine Cloudy (Clear); Bacteria,Urine Few /hpf; Basophils # (A) 0.1 k/uL (0-0.2); Basophils % (A) 1 %; Bilirubin,Urine Negative (Negative); Blood,Urine Negative (Negative); Color,Urine Yellow; Eosinophils # (A) 0.2 k/uL (0-0.7); Eosinophils % (A) 3 %; Glucose,Urine (UA) Negative (Negative); HCT 41.5 % (34.0-46.0); HGB 14.5 gm/dL (11.4-16.0); Hyaline Casts,Urine 3 /lpf (0-2); Ketones,Urine Negative (Negative); Leukocyte Esterase,Urine Large (Negative); Lymphocytes # (A) 2.1 k/uL (1.0-4.8); Lymphocytes % (A) 25 %; MCH 31.5 pg (25.0-35.0); MCV 89.8 fL (80.0-100.0); Mean Platelet Volume 7.9; Monocytes # (A) 0.5 k/uL (0-1.0); Monocytes % (A) 6 %; Mucus,Urine Rare /hpf; Neutrophils # (A) 5.5 k/uL (1.3-7.7); Neutrophils % (A) 64 %; Nitrite,Urine Positive (Negative); PH, Urine 5.5 (5.0-8.0); Platelet Count 302 k/uL (150-450); Protein,Urine Negative (Negative); RBC 4.61 m/uL (3.80-5.40); RBC,Urine 1 /hpf (0-5); RDW 12.8 % (11.5-15.5); Squamous Epithelial Cell,Urine 3 /hpf (0-4); Urobilinogen,Urine <2.0 mg/dL (<2.0); WBC 8.5 k/uL (3.8-10.6); WBC,Urine 85 /hpf (0-5)
[2020-03-21] MEDS ORDERED: SODIUM CHLORIDE 0.9% 1,000 ML IV ONE (15:46)
[2020-03-21] MEDS ORDERED: ALBUTEROL NEBULIZED 2.5 MG/3 ML INHALATION PRN (19:05)
[2020-03-21] MEDS: SYMBICORT 80-4.5 MCG INHALER INHALATION SCH (20:24)
[2020-03-21] MEDS ORDERED: GLUCOS SUL PO SCH (21:00)
[2020-03-21] MEDS ORDERED: [UNRECOGNIZED DRUG - OTHER] PO SCH (21:00)
--- NOTE | 2020-03-21 21:15 | HP ---
HISTORY AND PHYSICAL CHIEF COMPLAINTS: Abdominal pain and UTI. HISTORY OF PRESENT ILLNESS: This 79-year-old woman with a past medical history of COPD, history of CVA, hypertension, hyperlipidemia, DJD, history of sleep apnea, history of breast cancer, being followed by Dr. Walter in the outpatient setting, was recently admitted with a right internal capsule acute CVA with left-sided weakness. Patient was in [facility]. The patient was discharged, but now the patient is complaining of diffuse abdominal pain. Patient was evaluated by Dr. Walter in the outpatient setting and was directed to [facility] for further evaluation and treatment. UTI was diagnosed. Patient is being closely monitored. The patient also had a KUB x-ray in the emergency room which was reviewed personally by me. It was nonspecific. There is no history of any fever, rigor or chills. No history of headache, loss of consciousness, seizures. Patient is complaining of weakness also. PAST MEDICAL HISTORY: History of COPD, CVA, TIA, hypertension, hyperlipidemia, history of DJD, history of sleep apnea, history of breast cancer. HOME MEDICATIONS: 1. Zestril 20 mg p.o. daily. 2. Wellbutrin XL 150 mg at bedtime. 3. Clan 120 mg daily. 4. Multivitamins 1 p.o. daily. 5. Glucosamine. 6. Fluticasone. 7. Cyanocobalamin. 8. Plavix. 9. Vitamin D3. 10.Lipitor. 11.Atenolol/chlorthalidone. 12.Aspirin. 13.Albuterol. 14.Tylenol. Doses are reviewed. ALLERGIES: NONE. FAMILY HISTORY: History of cancers in the family. Two sisters had breast cancer. One sister had ovarian cancer. SOCIAL HISTORY: History of smoking, continued ongoing. REVIEW OF SYSTEMS: ENT: Diminished hearing. Diminished vision. CARDIOVASCULAR SYSTEM: No angina, palpitations. RESPIRATORY SYSTEM: No cough, hemoptysis. GI: As mentioned earlier. : As mentioned earlier. NERVOUS SYSTEM: As mentioned earlier. ALLERGY/IMMUNOLOGY: No asthma, hayfever. MUSCULOSKELETAL: As mentioned earlier. HEMATOLOGY/ONCOLOGY: No history of anemia. ENDOCRINE: No history of diabetes, hypothyroidism. CONSTITUTIONAL: As mentioned earlier. DERMATOLOGY: Negative. RHEUMATOLOGY: Negative. PSYCHIATRY: As mentioned earlier. PHYSICAL EXAMINATION: Patient alert and oriented x3. Pulse is 60, blood pressure 142/66, respiration 18, temperature 97.9, pulse ox 97% on room air. HEENT: Conjunctivae normal. NECK: No jugular venous distention. CARDIOVASCULAR SYSTEM: S1, S2 muffled. RESPIRATORY SYSTEM: Breath sounds diminished at the bases. A few scattered rhonchi and crackles. ABDOMEN: Soft. Mild diffuse discomfort on palpation. No guarding or rigidity. No mass palpable. LEGS: No edema. No swelling. NERVOUS SYSTEM: Higher functions as mentioned earlier. Moves all 4 limbs. No focal motor or sensory deficit. LYMPHATICS: No lymph node palpable in neck, axillae or groin. SKIN: No ulcer, rash, bleeding. JOINTS: No active deforming arthropathy. LABS: CBC within normal limits. Sodium 139, potassium 3.5, creatinine 1.40, glucose 128. UA noted. ASSESSMENT: 1. Acute urinary tract infection, present on admission. 2. Acute renal failure with prerenal acute tubular necrosis secondary to dehydration. 3. History of recent cerebrovascular accident involving the right internal capsule with left-sided weakness. 4. History of hypertension. 5. Hyperlipidemia. 6. History of degenerative joint disease. 7. Sleep apnea. 8. History of breast cancer. 9. History of breast surgery. 10.History of hysterectomy. 11.History of depression. 12.Remote history of nicotine dependence. RECOMMENDATIONS AND DISCUSSION: In this 79-year-old woman who presented with multiple complex medical issues, we will monitor the patient closely. We will initiate broad-spectrum IV antibiotics. Obtain cultures. Resume the home medications. DVT prophylaxis. Incentive spirometry. PT/OT evaluation. Social work evaluation regarding the home situation. Otherwise, prognosis guarded because of multiple complex medical issues. Further recommendations to follow. A copy of this dictation is being forwarded to Dr. Walter, who is the primary physician. MMODL / IJN: [id number] /
[2020-03-21] MEDS: CHOLECALCIFEROL 1,000 UNIT TAB PO SCH (21:52)
[2020-03-21] MEDS: CYANOCOBALAMIN 500 MCG TAB PO SCH (21:52)
[2020-03-21] MEDS: MULTIVITAMINS, THERA 1 EACH TAB PO SCH (21:52)
[2020-03-21] MEDS: ATORVASTATIN 20 MG TAB PO SCH (21:52)
[2020-03-21] MEDS: buPROPion XL 150 MG TAB.ER.24H PO SCH (21:53)
[2020-03-22 06:51] LABS: Basophils % (A) 1 %; Eosinophils # (A) 0.3 k/uL (0-0.7); Eosinophils % (A) 4 %; HCT 35.8 % (34.0-46.0); HGB 12.9 gm/dL (11.4-16.0); Lymphocytes % (A) 27 %; MCH 32.2 pg (25.0-35.0); MCHC 35.9 g/dL (31.0-37.0); MCV 89.7 fL (80.0-100.0); Mean Platelet Volume 7.7; Monocytes # (A) 0.7 k/uL (0-1.0); Monocytes % (A) 9 %; Neutrophils # (A) 4.3 k/uL (1.3-7.7); Neutrophils % (A) 58 %; Platelet Count 256 k/uL (150-450); RDW 12.6 % (11.5-15.5); WBC 7.3 k/uL (3.8-10.6)
[2020-03-22 07:00] LABS: Calcium 9.2 mg/dL (8.4-10.2); Potassium 3.3 mmol/L (3.5-5.1)
[2020-03-22] MEDS ORDERED: Potassium Replacement Protocol 1 EACH MISC MISCELLANE PRN (07:09)
[2020-03-22] MEDS: CLOPIDOGREL 75 MG TAB PO SCH (07:48)
[2020-03-22] MEDS: POTASSIUM CHLORIDE ER 20 MEQ TAB.ER PO SCH ×2 (07:49→09:35)
[2020-03-22] MEDS: ASPIRIN 81 MG PO SCH (07:49)
[2020-03-22] MEDS: CYANOCOBALAMIN 500 MCG TAB PO SCH ×2 (07:49→22:37)
[2020-03-22] MEDS: atenoloL 50 MG TAB PO SCH (07:49)
[2020-03-22] MEDS: CHOLECALCIFEROL 1,000 UNIT TAB PO SCH ×2 (07:50→22:37)
[2020-03-22] MEDS: SYMBICORT 80-4.5 MCG INHALER INHALATION SCH ×2 (08:03→19:26)
[2020-03-22] MEDS: VERAPAMIL 40 MG TAB PO SCH (11:35)
--- NOTE | 2020-03-22 16:15 | P.PN ---
Subjective Progress Note Date: 03/22/20 Principal diagnosis: UTI Acute renal failure with prerenal acute tubular necrosis Dehydration Hypokalemia Debility 79-year-old female DF for evaluation patient Dese for evaluation of abdominal pain dehydration. Patient was sent from doctor's office she was recently at [facility] for recovery from CVA coming in for likely dehydration with increased abdominal pain today. Mild nausea no vomiting no fevers. Patient is admitted to the hospital for further treatment of UTI and acute renal injury Objective - Vital Signs Vital signs: Vital Signs Temp 98.1 F 03/22/20 07:45 Pulse 72 03/22/20 07:45 Resp 16 03/22/20 07:45 BP 130/82 03/22/20 07:45 Pulse Ox 95 03/22/20 07:45 Intake & Output 03/21/20 03/22/20 03/22/20 18:59 06:59 18:59 Weight 81.647 kg Other: Voiding Method Diaper Diaper Diaper Incontinent Incontinent Incontinent # Voids 1 1 - Exam - Constitutional General appearance: Present: average body habitus, cooperative, no acute distress - EENT Eyes: Present: anicteric sclerae, EOMI, PERRLA, normal appearance ENT: Present: hearing grossly normal, normal oropharynx Ears: bilateral: normal - Neck Neck: Present: normal ROM. Absent: lymphadenopathy, rigidity, thyromegaly Carotids: negative: bruit present Thyroid: bilateral: normal size, negative: enlarged, nodule - Respiratory Respiratory: bilateral: CTA, negative: rales, rhonchi, wheezing - Cardiovascular Rhythm: regular Heart sounds: normal: S1, S2 Abnormal Heart Sounds: Absent: systolic murmur, diastolic murmur - Gastrointestinal General gastrointestinal: Present: normal bowel sounds, soft. Absent: distended, organomegaly, tenderness - Genitourinary Genitourinary Comment(s): deferred - Integumentary Integumentary: Present: normal turgor. Absent: jaundiced, rash, ulcer - Neurologic Neurologic: Present: CNII-XII intact. Absent: focal deficits - Musculoskeletal Musculoskeletal: Present: gait normal, strength equal bilaterally - Psychiatric Psychiatric: Present: A&O x's 3, appropriate affect, intact judgment & insight - Labs CBC & Chem 7: 03/22/20 06:01 03/22/20 06:01 Labs: Abnormal Lab Results - Last 24 Hours (Table) 03/21/20 03/21/20 03/22/20 Range/Units 13:51 13:51 06:01 Potassium 3.3 L (3.5-5.1) mmol/L BUN 18 H (7-17) mg/dL Creatinine 1.40 H 1.09 H (0.52-1.04) mg/dL Glucose 128 H 104 H (74-99) mg/dL Urine Appearance Cloudy H (Clear) Urine Nitrite Positive H (Negative) Ur Leukocyte Esterase Large H (Negative) Urine WBC 85 H (0-5) /hpf Urine WBC Clumps Occasional H (None) /hpf Urine Bacteria Few H (None) /hpf Hyaline Casts 3 H (0-2) /lpf Urine Mucus Rare H (None) /hpf Microbiology - Last 24 Hours (Table) 03/21/20 13:51 Urine Culture - Preliminary Urine,Voided Assessment and Plan Assessment: 1. Acute UTI; ceftriaxone 1 g IV daily; blood cultures and urine cultures obtained and pending; will adjust antibiotic therapy once culture results are available 2. Acute renal failure with prerenal acute tubular necrosis/ hypokalemia - Patient remains on IV fluid hydration along with electrolyte replacement protocol; we will continue to monitor strict NICOLAS's, daily weights, renal function and electrolytes; avoid nephrotoxins 3. Dehydration; continue with IV fluids, normal saline; we'll encourage oral fluids 4. Recent CVA with left hemiparesis/ debility; patient remains on aspirin and s tatin therapy; PT/OT/case management is consulted for possible rehab placement 4. Hypertension; stable on atenolol 50 mg daily 6. Hyperlipidemia; Lipitor 20 mg by mouth daily at bedtime 7. Sleep apnea; outpatient follow-up DVT prophylaxis; SCDs CODE STATUS; full code
[2020-03-22] MEDS: MULTIVITAMINS, THERA 1 EACH TAB PO SCH (22:37)
[2020-03-22] MEDS: ACETAMINOPHEN TAB 500 MG TAB PO PRN (22:37)
[2020-03-22] MEDS: ATORVASTATIN 20 MG TAB PO SCH (22:37)
[2020-03-22] MEDS: buPROPion XL 150 MG TAB.ER.24H PO SCH (22:39)
[2020-03-23 06:05] LABS: Basophils % (A) 1 %; Eosinophils # (A) 0.4 k/uL (0-0.7); Eosinophils % (A) 5 %; HCT 38.3 % (34.0-46.0); HGB 13.7 gm/dL (11.4-16.0); Lymphocytes # (A) 2.5 k/uL (1.0-4.8); Lymphocytes % (A) 37 %; MCH 32.2 pg (25.0-35.0); MCHC 35.8 g/dL (31.0-37.0); MCV 89.9 fL (80.0-100.0); Mean Platelet Volume 7.5; Monocytes # (A) 0.6 k/uL (0-1.0); Monocytes % (A) 9 %; Neutrophils # (A) 3.1 k/uL (1.3-7.7); Neutrophils % (A) 46 %; Platelet Count 267 k/uL (150-450); RBC 4.25 m/uL (3.80-5.40); RDW 12.8 % (11.5-15.5); WBC 6.8 k/uL (3.8-10.6)
[2020-03-23 06:25] LABS: Calcium 9.5 mg/dL (8.4-10.2); Potassium 3.3 mmol/L (3.5-5.1)
[2020-03-23] MEDS ORDERED: Potassium Replacement Protocol 1 EACH MISC MISCELLANE PRN (06:31)
[2020-03-23] MEDS: CYANOCOBALAMIN 500 MCG TAB PO SCH ×2 (09:58→20:37)
[2020-03-23] MEDS: atenoloL 50 MG TAB PO SCH (09:58)
[2020-03-23] MEDS: CLOPIDOGREL 75 MG TAB PO SCH (09:58)
[2020-03-23] MEDS: CHOLECALCIFEROL 1,000 UNIT TAB PO SCH ×2 (09:58→20:37)
[2020-03-23] MEDS: ASPIRIN 81 MG PO SCH (09:58)
[2020-03-23] MEDS: POTASSIUM CHLORIDE ER 20 MEQ TAB.ER PO SCH ×2 (09:58→11:23)
[2020-03-23] MEDS: SODIUM CHLORIDE 0.9% 1,000 ML IV SCH ×2 (10:01→20:38)
[2020-03-23] MEDS: SYMBICORT 80-4.5 MCG INHALER INHALATION SCH ×2 (11:44→20:02)
[2020-03-23] MEDS: VERAPAMIL 40 MG TAB PO SCH (11:50)
--- NOTE | 2020-03-23 16:11 | P.PN ---
Subjective Progress Note Date: 03/23/20 Principal diagnosis: UTI Acute renal failure with prerenal acute tubular necrosis Dehydration Hypokalemia Debility 79-year-old female DF for evaluation patient Dese for evaluation of abdominal pain dehydration. Patient was sent from doctor's office she was recently at [facility] for recovery from CVA coming in for likely dehydration with increased abdominal pain today. Mild nausea no vomiting no fevers. Patient is admitted to the hospital for further treatment of UTI and acute renal injury 03/23/2020 Patient is seen and evaluated in room at bedside; denies any specific complaints; vital signs remained stable Labs are reviewed; creatinine unchanged from yesterday; urine culture growing gram-negative bacilli and final culture and sensitivity is pending We will restart patient on IV fluids in form of normal saline at a rate of 75 mL an hour; continue antibiotics in form of IV Rocephin to final culture and sensitivity is done Patient will need placement for skilled rehab Objective - Vital Signs Vital signs: Vital Signs Temp 97.9 F 03/23/20 02:54 Pulse 55 L 03/23/20 02:54 Resp 16 03/23/20 02:56 BP 132/79 03/23/20 02:54 Pulse Ox 95 03/23/20 02:54 Intake & Output 03/22/20 03/23/20 03/23/20 18:59 06:59 18:59 Other: Voiding Method Diaper Diaper Incontinent Incontinent # Voids 1 2 - Exam - Constitutional General appearance: Present: average body habitus, cooperative, no acute distress - EENT Eyes: Present: anicteric sclerae, EOMI, PERRLA, normal appearance ENT: Present: hearing grossly normal, normal oropharynx Ears: bilateral: normal - Neck Neck: Present: normal ROM. Absent: lymphadenopathy, rigidity, thyromegaly Carotids: negative: bruit present Thyroid: bilateral: normal size, negative: enlarged, nodule - Respiratory Respiratory: bilateral: CTA, negative: rales, rhonchi, wheezing - Cardiovascular Rhythm: regular Heart sounds: normal: S1, S2 Abnormal Heart Sounds: Absent: systolic murmur, diastolic murmur - Gastrointestinal General gastrointestinal: Present: normal bowel sounds, soft. Absent: distended, organomegaly, tenderness - Genitourinary Genitourinary Comment(s): deferred - Integumentary Integumentary: Present: normal turgor. Absent: jaundiced, rash, ulcer - Neurologic Neurologic: Present: CNII-XII intact. Absent: focal deficits - Musculoskeletal Musculoskeletal: Present: gait normal, strength equal bilaterally - Psychiatric Psychiatric: Present: A&O x's 3, appropriate affect, intact judgment & insight - Labs CBC & Chem 7: 03/23/20 05:30 03/23/20 12:52 Labs: Abnormal Lab Results - Last 24 Hours (Table) 03/23/20 Range/Units 05:30 Potassium 3.3 L (3.5-5.1) mmol/L Creatinine 1.10 H (0.52-1.04) mg/dL Microbiology - Last 24 Hours (Table) 03/21/20 13:51 Urine Culture - Preliminary Urine,Voided Gram Neg Bacilli Assessment and Plan Assessment: 1. Acute UTI; ceftriaxone 1 g IV daily; blood cultures and urine cultures obtained and pending; will adjust antibiotic therapy once culture results are available 2. Acute renal failure with prerenal acute tubular necrosis/ hypokalemia - Patient remains on IV fluid hydration along with electrolyte replacement protocol; we will continue to monitor strict NICOLAS's, daily weights, renal function and electrolytes; avoid nephrotoxins 3. Dehydration; continue with IV fluids, normal saline; we'll encourage oral fluids 4. Recent CVA with left hemiparesis/ debility; patient remains on aspirin and statin therapy; PT/OT/case management is consulted for possible rehab placement 4. Hypertension; stable on atenolol 50 mg daily 6. Hyperlipidemia; Lipitor 20 mg by mouth daily at bedtime 7. Sleep apnea; outpatient follow-up DVT prophylaxis; SCDs CODE STATUS; full code
[2020-03-23] MEDS: NICOTINE 14MG/24HR PATCH TRANSDERM SCH (19:27)
[2020-03-23] MEDS: ATORVASTATIN 20 MG TAB PO SCH (20:37)
[2020-03-23] MEDS: buPROPion XL 150 MG TAB.ER.24H PO SCH (20:37)
[2020-03-23] MEDS: MULTIVITAMINS, THERA 1 EACH TAB PO SCH (20:37)
[2020-03-23] MEDS: ACETAMINOPHEN TAB 500 MG TAB PO PRN (22:46)
[2020-03-24 05:45] LABS: Basophils % (A) 1 %; Eosinophils # (A) 0.4 k/uL (0-0.7); Eosinophils % (A) 6 %; HCT 38.7 % (34.0-46.0); HGB 13.5 gm/dL (11.4-16.0); Lymphocytes # (A) 2.2 k/uL (1.0-4.8); Lymphocytes % (A) 35 %; MCH 31.5 pg (25.0-35.0); MCHC 34.8 g/dL (31.0-37.0); MCV 90.5 fL (80.0-100.0); Mean Platelet Volume 7.6; Monocytes # (A) 0.5 k/uL (0-1.0); Monocytes % (A) 8 %; Neutrophils # (A) 3.1 k/uL (1.3-7.7); Neutrophils % (A) 49 %; Platelet Count 259 k/uL (150-450); RBC 4.28 m/uL (3.80-5.40); RDW 12.9 % (11.5-15.5); WBC 6.4 k/uL (3.8-10.6)
[2020-03-24 05:57] LABS: Calcium 9.5 mg/dL (8.4-10.2); Potassium 3.6 mmol/L (3.5-5.1)
[2020-03-24] MEDS: CLOPIDOGREL 75 MG TAB PO SCH (07:45)
[2020-03-24] MEDS: atenoloL 50 MG TAB PO SCH (07:45)
[2020-03-24] MEDS: ASPIRIN 81 MG PO SCH (07:45)
[2020-03-24] MEDS: NICOTINE 14MG/24HR PATCH TRANSDERM SCH ×2 (07:45→17:49)
[2020-03-24] MEDS: CHOLECALCIFEROL 1,000 UNIT TAB PO SCH ×2 (07:45→20:27)
[2020-03-24] MEDS: CYANOCOBALAMIN 500 MCG TAB PO SCH ×2 (07:46→20:27)
[2020-03-24] MEDS: SYMBICORT 80-4.5 MCG INHALER INHALATION SCH ×2 (07:50→19:34)
[2020-03-24] MEDS: VERAPAMIL 40 MG TAB PO SCH (12:32)
[2020-03-24] MEDS: SODIUM CHLORIDE 0.9% 1,000 ML IV SCH (12:32)
--- NOTE | 2020-03-24 15:05 | P.PN ---
Subjective Progress Note Date: 03/24/20 Principal diagnosis: UTI Acute renal failure with prerenal acute tubular necrosis Dehydration Hypokalemia Debility 79-year-old female DF for evaluation patient Dese for evaluation of abdominal pain dehydration. Patient was sent from doctor's office she was recently at [facility] for recovery from CVA coming in for likely dehydration with increased abdominal pain today. Mild nausea no vomiting no fevers. Patient is admitted to the hospital for further treatment of UTI and acute renal injury 03/23/2020 Patient is seen and evaluated in room at bedside; denies any specific complaints; vital signs remained stable Labs are reviewed; creatinine unchanged from yesterday; urine culture growing gram-negative bacilli and final culture and sensitivity is pending We will restart patient on IV fluids in form of normal saline at a rate of 75 mL an hour; continue antibiotics in form of IV Rocephin to final culture and sensitivity is done Patient will need placement for skilled rehab 03/24/2020 Patient is seen and evaluated resting comfortably in bed; denies any specific complaints Lab review shows a stable CBC and improving creatinine down to 1.05; we will continue another 24 hours of IV fluid hydration; patient has been evaluated by PT/OT and awaits placement for skilled rehab Case management is on board and arrangements will be made in next 24 hours Objective - Vital Signs Vital signs: Vital Signs Temp 97.6 F 03/24/20 07:38 Pulse 61 03/24/20 07:38 Resp 16 03/24/20 07:38 BP 166/88 03/24/20 07:38 Pulse Ox 95 03/24/20 07:38 Intake & Output 03/23/20 03/24/20 03/24/20 18:59 06:59 18:59 Other: Voiding Method Diaper Diaper Diaper Incontinent Incontinent Incontinent # Voids 1 2 1 # Bowel Movements 1 - Exam - Constitutional General appearance: Present: average body habitus, cooperative, no acute distress - EENT Eyes: Present: anicteric sclerae, EOMI, PERRLA, normal appearance ENT: Present: hearing grossly normal, normal oropharynx Ears: bilateral: normal - Neck Neck: Present: normal ROM. Absent: lymphadenopathy, rigidity, thyromegaly Carotids: negative: bruit present Thyroid: bilateral: normal size, negative: enlarged, nodule - Respiratory Respiratory: bilateral: CTA, negative: rales, rhonchi, wheezing - Cardiovascular Rhythm: regular Heart sounds: normal: S1, S2 Abnormal Heart Sounds: Absent: systolic murmur, diastolic murmur - Gastrointestinal General gastrointestinal: Present: normal bowel sounds, soft. Absent: distended, organomegaly, tenderness - Genitourinary Genitourinary Comment(s): deferred - Integumentary Integumentary: Present: normal turgor. Absent: jaundiced, rash, ulcer - Neurologic Neurologic: Present: CNII-XII intact. Absent: focal deficits - Musculoskeletal Musculoskeletal: Present: gait normal, strength equal bilaterally - Psychiatric Psychiatric: Present: A&O x's 3, appropriate affect, intact judgment & insight - Labs CBC & Chem 7: 03/24/20 05:21 03/24/20 05:21 Labs: Abnormal Lab Results - Last 24 Hours (Table) 03/24/20 Range/Units 05:21 Creatinine 1.05 H (0.52-1.04) mg/dL Glucose 109 H (74-99) mg/dL Microbiology - Last 24 Hours (Table) 03/21/20 13:51 Urine Culture - Final Urine,Voided Escherichia coli Assessment and Plan Assessment: 1. Acute UTI; ceftriaxone 1 g IV daily; blood cultures and urine cultures obtained and pending; will adjust antibiotic therapy once culture results are available 2. Acute renal failure with prerenal acute tubular necrosis/ hypokalemia - Patient remains on IV fluid hydration along with electrolyte replacement protocol; we will continue to monitor strict NICOLAS's, daily weights, renal function and electrolytes; avoid nephrotoxins 3. Dehydration; continue with IV fluids, normal saline; we'll encourage oral fl uids 4. Recent CVA with left hemiparesis/ debility; patient remains on aspirin and statin therapy; PT/OT/case management is consulted for possible rehab placement 4. Hypertension; stable on atenolol 50 mg daily 6. Hyperlipidemia; Lipitor 20 mg by mouth daily at bedtime 7. Sleep apnea; outpatient follow-up DVT prophylaxis; SCDs CODE STATUS; full code
[2020-03-24] MEDS: buPROPion XL 150 MG TAB.ER.24H PO SCH (20:27)
[2020-03-24] MEDS: ATORVASTATIN 20 MG TAB PO SCH (20:27)
[2020-03-24] MEDS: MULTIVITAMINS, THERA 1 EACH TAB PO SCH (20:27)
[2020-03-25] MEDS: SODIUM CHLORIDE 0.9% 1,000 ML IV SCH ×2 (04:08→16:09)
[2020-03-25 06:43] LABS: Calcium 9.6 mg/dL (8.4-10.2); Potassium 3.7 mmol/L (3.5-5.1)
[2020-03-25] MEDS: CHOLECALCIFEROL 1,000 UNIT TAB PO SCH (07:30)
[2020-03-25] MEDS: ASPIRIN 81 MG PO SCH (07:30)
[2020-03-25] MEDS: NICOTINE 14MG/24HR PATCH TRANSDERM SCH (07:30)
[2020-03-25] MEDS: CLOPIDOGREL 75 MG TAB PO SCH (07:31)
[2020-03-25] MEDS: CYANOCOBALAMIN 500 MCG TAB PO SCH (07:31)
[2020-03-25] MEDS: atenoloL 50 MG TAB PO SCH (07:31)
[2020-03-25] MEDS: SYMBICORT 80-4.5 MCG INHALER INHALATION SCH (11:28)
[2020-03-25] MEDS: VERAPAMIL 40 MG TAB PO SCH (12:15)
--- NOTE | 2020-03-25 15:54 | P.DS ---
Providers Date of admission: 03/23/20 10:29 Expected date of discharge: 03/25/20 Attending physician: Junaid Rojas [facility] Course: Hospital course: Patient presented with lower abdominal pain. Found to have acute UTI with cystitis. Treated with IV ceftriaxone and IV fluids. Also found an acute kidney injury. ARNALDO inhibitor and diuretics were discontinued. Creatinine improved from 1.4 down to 1.02. Patient has underlying dementia. Today-oral intake fair. No pain. No fever. Accepted at rehab. On examination: VITAL SIGNS: 98.1, 79, 16, 125/85, 95% room air GENERAL APPEARANCE: Sitting up on the bed, comfortable EYES: Pupils equal. Conjunctiva normal. NECK: JVD not raised. Mass not palpable. RESPIRATORY: Respiratory effort normal. Lungs clear to auscultation. CARDIOVASCULAR: First and second sounds normal. No edema. ABDOMEN: Soft. Liver and spleen not palpable. No tenderness. No mass palpable. PSYCHIATRY: Patient knows her name. Does not know why she is here. or the month / year. Investigations: White count 6.4 hemoglobin 13.5 potassium 3.7 creatinine 1.02 Previous testing: Creatinine 1.4 Urine culture-E. coli Assessment: -Acute UTI with cystitis, POA -Acute kidney injury with prerenal and ATN -Hypokalemia -Recent CVA with left hemiparesis debility -Essential hypertension -Hyperlipidemia -Obstructive sleep apnea-uses BiPAP -COPD in a current smoker Plan: ECF/[facility] Patient Condition at Discharge: Fair Plan - Discharge Summary New Discharge Prescriptions: New Nicotine 14Mg/24Hr Patch [Habitrol] 1 patch TRANSDERM DAILY patch Cephalexin [Keflex] 250 mg PO Q8HR #9 capsule atenoloL [Tenormin] 50 mg PO DAILY tab Continue Atorvastatin [Lipitor] 20 mg PO HS@2100 Cholecalciferol [Vitamin D3 (25 Mcg = 1000 Iu)] 2,000 unit PO BID Cyanocobalamin (Vitamin B-12) [Vitamin B-12] 1,000 mcg PO BID Verapamil HCl [Calan] 120 mg PO DAILY@1200 buPROPion HCL [Wellbutrin XL] 150 mg PO HS@2100 Acetaminophen [Tylenol Extra Strength] 500 mg PO Q6H PRN PRN Reason: Pain Glucos Sul 2Kcl/MSM/Chond/C/Mn [Glucosamine Chondroitin Cap] 1 cap PO HS@2099 Multivitamins, Thera [Multivitamin (formulary)] 1 tab PO HS@2100 Albuterol Sulfate [Ventolin HFA] 1 puff INHALATION RT-Q6H PRN PRN Reason: Shortness Of Breath Aspirin 81 mg PO DAILY@0900 Clopidogrel [Plavix] 75 mg PO DAILY@0900 Fluticasone Propion/Salmeterol [Wixela 250-50 Inhub] 1 puff INHALATION RT-BID Discontinued Atenolol/Chlorthalidone [Atenolol-Chlorthalidone 50-25] 1 tab PO HS@2099 lisinopriL [Zestril] 20 mg PO DAILY@0900 Discharge Medication List Atorvastatin [Lipitor] 20 mg PO HS@209902/26/17 [History] Cholecalciferol [Vitamin D3 (25 Mcg = 1000 Iu)] 2,000 unit PO BID 03/09/17 [History] Cyanocobalamin (Vitamin B-12) [Vitamin B-12] 1,000 mcg PO BID 11/09/18 [History] Acetaminophen [Tylenol Extra Strength] 500 mg PO Q6H PRN 06/16/19 [History] Verapamil HCl [Calan] 120 mg PO DAILY@1200 06/16/19 [History] buPROPion HCL [Wellbutrin XL] 150 mg PO HS@209906/16/19 [History] Albuterol Sulfate [Ventolin HFA] 1 puff INHALATION RT-Q6H PRN 02/12/20 [History] Glucos Sul 2Kcl/MSM/Chond/C/Mn [Glucosamine Chondroitin Cap] 1 cap PO HS@209902/12/20 [History] Multivitamins, Thera [Multivitamin (formulary)] 1 tab PO HS@209902/12/20 [History] Aspirin 81 mg PO DAILY@0900 03/21/20 [History] Clopidogrel [Plavix] 75 mg PO DAILY@0900 03/21/20 [History] Fluticasone Propion/Salmeterol [Wixela 250-50 Inhub] 1 puff INHALATION RT-BID 03/21/20 [History] Cephalexin [Keflex] 250 mg PO Q8HR #9 capsule 03/25/20 [Rx] Nicotine 14Mg/24Hr Patch [Habitrol] 1 patch TRANSDERM DAILY patch 03/25/20 [Rx] atenoloL [Tenormin] 50 mg PO DAILY tab 03/25/20 [Rx] Follow up Appointment(s)/Referral(s): Viktor Walter DO [Primary Care Provider] - 1-2 days
[2020-03-25 21:11] VITALS: BP 156/83; PULSE 59; RESP 18; TEMP 98.3
== END 2020-03-25 19:31 | disposition home or self-care (01) ==
LOC: EC 13:23 → 1SOBS 15:46 → INTOOBSV 03-23 10:29 → OBSVTOIN 03-23 10:29 → UNDODISIN 03-25 19:31
PROVIDERS: ADMIT Hospitalist; ATTEND Hospitalist
DX: N30.00 Acute cystitis without hematuria (principal); N17.0 Acute kidney failure with tubular necrosis; F03.90 Unspecified dementia, unspecified severity, without behavioral disturbance, psychotic disturbance, mood disturbance, and anxiety; E87.6 Hypokalemia; I69.354 Hemiplegia and hemiparesis following cerebral infarction affecting left non-dominant side; I10 Essential (primary) hypertension; E78.5 Hyperlipidemia, unspecified; G47.33 Obstructive sleep apnea (adult) (pediatric); Z99.89 Dependence on other enabling machines and devices; J44.9 Chronic obstructive pulmonary disease, unspecified; F17.210 Nicotine dependence, cigarettes, uncomplicated; R32 Unspecified urinary incontinence; E86.0 Dehydration; R19.7 Diarrhea, unspecified; M19.90 Unspecified osteoarthritis, unspecified site; F32.9 Major depressive disorder, single episode, unspecified; Z90.710 Acquired absence of both cervix and uterus; Z85.3 Personal history of malignant neoplasm of breast; Z79.899 Other long term (current) drug therapy; Z79.82 Long term (current) use of aspirin; Z79.02 Long term (current) use of antithrombotics/antiplatelets; Z92.21 Personal history of antineoplastic chemotherapy; Z92.3 Personal history of irradiation; Z87.19 Personal history of other diseases of the digestive system; Z98.82 Breast implant status; Z96.611 Presence of right artificial shoulder joint; Z96.651 Presence of right artificial knee joint; Z80.3 Family history of malignant neoplasm of breast; Z80.41 Family history of malignant neoplasm of ovary
CPT/HCPCS: 96361 ×3; 96366 ×3; 96365; 99285; 36415; 94640 ×8; 97116 ×2; 97110; 97162; 97535 ×2; 97166; 80053; 80048 ×4; 82150; 82550; 83605; 83690; 84132; 84484; 85025 ×4; 81001; 87086; 87077; 87186; 74018; G0378 ×5; S4990 ×3; J0696 ×5

== ENCOUNTER 2020-04-24 12:46 | Day surgery (SDC) | payer MEDICARE ==
[~2020-04-24 12:46] MED LIST changes: -ACETAMINOPHEN TAB 500 MG TAB PO ONE; +LACTATED RINGERS 1,000 ML IV SCH; -MELOXICAM 7.5 MG TAB PO ONE; -MIDAZOLAM 2 MG/2 ML VIAL IV PRN; -TRANEXAMIC ACID 1,000 MG in SODIUM CHLORIDE 0.9% 100 ML IVPB ONE; +fentaNYL (PF) 50 MCG/ML 2 ML AMP IV PRN; +fentaNYL (PF) 50 MCG/ML 2 ML AMP IVP PRN
[2020-04-24] MEDS ORDERED: SODIUM BICARB 8.4% 10 ML VIAL (1 MEQ/ML) ONE (13:11)
[2020-04-24 13:32] VITALS: RESP 18; TEMP 97.8
[2020-04-24 18:22] VITALS: BP 142/85; PULSE 94
--- NOTE | 2020-04-25 06:42 | FL ---
EXAMINATION TYPE: FL guidance operating room, XR finger LT DATE OF EXAM: 04/24/2020 CLINICAL HISTORY: Left thumb fracture dislocation. TECHNIQUE: Fluoroscopy. X-ray left finger 2 views. COMPARISON: None. FINDINGS: Fluoroscopic guidance was provided during closed reduction of left thumb fracture dislocat ion procedure performed by Dr. Rodriguez. A total of 85 seconds of fluoroscopic time was utilized d uring the procedure and 4 spot intraoperative images are acquired. Intraoperative images obtained show placement of fixating screw with improved alignment through trans verse fracture proximal metaphysis first distal phalanx. IMPRESSION: As Above.
--- NOTE | 2020-04-28 13:01 | P.OP ---
Date of Procedure: 04/24/20 Preoperative Diagnosis: Subacute, displaced left thumb distal phalanx fracture Postoperative Diagnosis: Subacute, displaced left thumb distal phalanx fracture impending malunion Procedure(s) Performed: Open reduction and internal fixation of displaced left thumb distal phalanx fracture Implants: Synthes cannulated headless compression screw, 2.0 mm x 16 mm (short thread) Anesthesia: local Surgeon: Meng Rodriguez Estimated Blood Loss (ml): 2 Condition: stable Disposition: same day Indications for Procedure: The patient is a pleasant 79-year-old female who experienced a recent stroke and has been recovering in a subacute rehabilitation facility. Shortly after her arrival at the facility, she attempted to get up unassisted and experienced a mechanical fall, resulting in a displaced fracture of her left thumb distal phalanx. This was initially treated non-operatively, but there were difficulties maintaining the splint and she experienced persistent pain. She was referred to in for further evaluation. X-rays demonstrated marked fracture angulation without substantial bony healing. Treatment options (along with associated risks and benefits) were discussed in the office with the patient and her [id number]. The pros and cons of nonsurgical versus surgical treatments were reviewed in detail. They elected operative treatment. In preop, additional questions were addressed and they were in agreement to proceed with surgery. Consent forms were signed. The operative site was confirmed and marked in preop. Description of Procedure: After consent was obtained, lidocaine with epinephrine was injected around the planned incision/surgical site in preop, using aseptic technique. After an appropriate interval of time, the patient was brought to the OR and positioned supine with the operative limb on a hand table. The left upper extremity was then prepped and draped in standard, sterile fashion. A time-out was performed, confirming patient identifiers, the operative side, the site and the procedure to be performed: all team members expressed agreement. Loupe magnification was utilized throughout the case for optimum visualization. The fracture was evaluated with intraoperative fluoroscopy, demonstrating marked extension deformity and significant palmar translation of the distal fragment. Manual reduction was attempted but resulted in minimal change in the alignment. Small midaxial incision was made on the radial aspect of the fracture site. Spreading dissection was used to expose the bone. A Antwon-Kleinert elevator was inserted into the fracture site (confirmed on imaging) but dense fibrous tissue and non-ossified fracture callous was present, preventing mobilization of the fracture fragments. Curettes were used to remove the fibrous tissue. The elevator was used to carefully release and mobilize the fracture fragments, taking care to protect both the flexor and extensor tendons. Once sufficiently released, the wound was irrigated and the fracture was reduced. Based on preoperative templating, the guidewire for a 2.0 mm cannulated screw was selected. The wire was inserted percutaneously into the tip of the thumb and the starting point was confirmed on orthogonal imaging. With the fracture held reduced, the wire was advanced retrograde down the medullary canal and across the fracture site, taking care not to violate the subchondral bone at the IP joint. Wire position was confirmed on orthogonal views. Given the small size of the guidewire, this did not afford robust stability. A 0.035 K-wire was inserted percutaneously and advanced retrograde down the distal phalanx, parallel to the guidewire, for adjunct temporary fixation and rotational control. The cannulated drill was inserted and advanced by hand (only into the proximal fracture fragment). Holding the fracture reduced and controlling rotation, the screw was then inserted over the guidewire. The screw was advanced until all threads were past the fracture site and the screw head was completely recessed within the bone distally. This achieved good purchase within the proximal fragment. The guidewire and provisional K-wire were removed. Final x-rays were obtained, confirming fracture reduction and implant position. The fracture was then stressed under live fluoroscopy - no motion was appreciated at the fracture site. Passive IP motion demonstrated good range of motion, without crepitus or grating. Good hemostasis was maintained throughout the case without the need for a tourniquet. The wounds were thoroughly irrigated with normal saline and the incisions were closed with interrupted 5-0 nylon sutures. A soft, sterile dressing was applied. All sponge, needle and instrument counts were correct at the end of the case. No complications were identified. The patient tolerated the procedure well and was transferred to recovery in stable condition.
== END 2020-04-24 19:00 ==
LOC: OR 12:46
PROVIDERS: ATTEND Orthopaedic Surgery
DX: S62.522A Displaced fracture of distal phalanx of left thumb, initial encounter for closed fracture (principal); J44.9 Chronic obstructive pulmonary disease, unspecified; G47.33 Obstructive sleep apnea (adult) (pediatric); H91.90 Unspecified hearing loss, unspecified ear; F03.90 Unspecified dementia, unspecified severity, without behavioral disturbance, psychotic disturbance, mood disturbance, and anxiety; Z79.82 Long term (current) use of aspirin; Z79.02 Long term (current) use of antithrombotics/antiplatelets; Z79.899 Other long term (current) drug therapy; Z86.73 Personal history of transient ischemic attack (TIA), and cerebral infarction without residual deficits; Z85.3 Personal history of malignant neoplasm of breast; Z85.828 Personal history of other malignant neoplasm of skin; Z90.710 Acquired absence of both cervix and uterus; Z96.659 Presence of unspecified artificial knee joint; Z96.619 Presence of unspecified artificial shoulder joint; Z87.891 Personal history of nicotine dependence; W18.30XA Fall on same level, unspecified, initial encounter
CPT/HCPCS: 82306; 73140; 26765; C1713; J1100; J0690; J2405

== ENCOUNTER → 2020-06-21 | Outpatient (CLI) | payer MEDICARE ==
--- NOTE | 2020-06-21 08:33 | CT ---
EXAMINATION TYPE: CT brain wo con DATE OF EXAM: 06/21/2020 COMPARISON: 08/28/2019 HISTORY: Increased confusion CT DLP: [address] of the brain was performed. The ventricles, basal cisterns and sulci overlying the cerebral convexities demonstrate mild enlargem ent. There is no evidence for intracranial hemorrhage or sulcal effacement. There is moderate confluent decreased attenuation about the periventricular white matter and deep whi te matter of both cerebral hemispheres, compatible with chronic small vessel ischemia. Differential d iagnosis does include demyelination. No mass effects are seen.No midline shift. Osseous calvarium is intact. If symptoms persist consider MRI. IMPRESSION: 1. Age related atrophic and chronic small vessel ischemic change without acute intracranial process s een at this time.
== END | disposition home or self-care (01) ==
LOC: RADCTMAIN 07:46
PROVIDERS: ATTEND Nurse Practitioner Gerontology
DX: G31.1 Senile degeneration of brain, not elsewhere classified (principal); I67.82 Cerebral ischemia
CPT/HCPCS: 70450

== ENCOUNTER 2020-07-24 13:12 | Inpatient (IN) | payer MEDICARE, OTHER ==
[2020-07-24] MEDS ORDERED: SODIUM CHLORIDE 0.9% 1,000 ML IV STA ×2 (14:03)
[2020-07-24 14:25] LABS: Basophils # (A) 0.1 k/uL (0-0.2); Basophils % (A) 1 %; Eosinophils # (A) 0.4 k/uL (0-0.7); Eosinophils % (A) 5 %; HCT 39.7 % (34.0-46.0); Lymphocytes # (A) 2.4 k/uL (1.0-4.8); Lymphocytes % (A) 27 %; MCH 31.4 pg (25.0-35.0); MCHC 35.2 g/dL (31.0-37.0); MCV 89.3 fL (80.0-100.0); Monocytes # (A) 0.7 k/uL (0-1.0); Monocytes % (A) 8 %; Neutrophils # (A) 5.1 k/uL (1.3-7.7); Neutrophils % (A) 58 %; Platelet Count 338 k/uL (150-450); RBC 4.45 m/uL (3.80-5.40); RDW 12.8 % (11.5-15.5); WBC 8.8 k/uL (3.8-10.6)
[2020-07-24 14:35] LABS: Albumin 3.7 g/dL (3.5-5.0); Calcium 9.7 mg/dL (8.4-10.2); Partial Thromboplastin Time 24.5 sec (22.0-30.0); Potassium 3.9 mmol/L (3.5-5.1); Prothrombin Time 10.1 sec (9.0-12.0); Total Bilirubin 0.7 mg/dL (0.2-1.3); Total Protein 6.7 g/dL (6.3-8.2)
--- NOTE | 2020-07-24 14:58 | XR ---
EXAMINATION TYPE: XR chest 2V DATE OF EXAM: 07/24/2020 COMPARISON: 02/12/2020 HISTORY: Shortness of breath TECHNIQUE: Frontal and lateral views of the chest are obtained. FINDINGS: Scattered senescent parenchymal changes noted. Hyperinflation compatible with COPD. No evidence for infiltrate. No evidence for atelectasis. Heart size is stable. Mediastinal structures are stable and grossly unremarkable. No evidence for hilar prominence. Degenerative changes dorsal spine. IMPRESSION: 1. No evidence for acute pulmonary disease.
--- NOTE | 2020-07-24 15:04 | ED ---
Recheck HPI <Sonny Hannah - Last Filed: 07/24/20 15:54> - General Source: patient, family, EMS, RN notes reviewed, old records reviewed Mode of arrival: EMS Limitations: no limitations <Ena Schilling - Last Filed: 07/24/20 16:14> - General Chief Complaint: Recheck/Abnormal Lab/Rx Stated Complaint: ABD MRI Time Seen by Provider: 07/24/20 13:40 - History of Present Illness Initial Comments: This is a 79-year-old female presents to return today after having an outpatient MRI of her brain completed yesterday as in follow-up from a stroke that she had in January. She denies any acute symptoms complaints of pain. The MRI showed a punctate acute infarct within the posterior right centrum semiovale. There is severe chronic small vessel ischemic disease. There is a 3 mm dural calcification in the calcified meningioma. [employer] midabdominal region of left ventricle as well as left external capsule. Mild sinus inflammatory changes. Patient reports that she does live at the [place]. Patient has no symptoms of any pains. She is maintained on aspirin and Plavix. Her neurologist was Dr. Gaitan. She reports that she is supposed to have upcoming appointment next week. (Ena Schilling) - Related Data Home Medications Medication Instructions Recorded Confirmed Atorvastatin [Lipitor] 20 mg PO HS 02/26/17 04/24/20 Cholecalciferol [Vitamin D3 (25 2,000 unit PO BID 03/09/17 04/24/20 Mcg = 1000 Iu)] Cyanocobalamin (Vitamin B-12) 1,000 mcg PO BID 11/09/18 04/24/20 [Vitamin B-12] Acetaminophen [Tylenol Extra 500 mg PO Q6H PRN 06/16/19 04/24/20 Strength] Verapamil HCl [Calan] 120 mg PO PC-LUNCH 06/16/19 04/24/20 buPROPion HCL [Wellbutrin XL] 150 mg PO DAILY 06/16/19 04/24/20 Albuterol Sulfate [Ventolin HFA] 1 puff INHALATION RT-Q6H PRN 02/12/20 04/24/20 Glucos Sul 2Kcl/MSM/Chond/C/Mn 1 cap PO HS 02/12/20 04/24/20 [Glucosamine Chondroitin Cap] Multivitamins, Thera [Multivitamin 1 tab PO DAILY 02/12/20 04/24/20 (formulary)] Aspirin 81 mg PO DAILY 03/21/20 04/24/20 Clopidogrel [Plavix] 75 mg PO DAILY 03/21/20 04/24/20 Fluticasone Propion/Salmeterol 1 puff INHALATION RT-BID 03/21/20 04/24/20 [Wixela 250-50 Inhub] Previous Rx's Medication Instructions Recorded Nicotine 14Mg/24Hr Patch [Habitrol] 1 patch TRANSDERM DAILY patch 03/25/20 atenoloL [Tenormin] 50 mg PO DAILY tab 03/25/20 Allergies Allergy/AdvReac Type Severity Reaction Status Date / Time No Known Allergies Allergy Verified 07/24/20 13:24 Review of Systems ROS Other: All systems not noted in ROS Statement are negative. <Sonny Hannah - Last Filed: 07/24/20 15:54> ROS Other: All systems not noted in ROS Statement are negative. <Ena Schilling - Last Filed: 07/24/20 16:14> ROS Statement: Those systems with pertinent positive or pertinent negative responses have been documented in the HPI. Past Medical History Past Medical History: Cancer, COPD, CVA/TIA, Dementia, Hyperlipidemia, Hypertension, Osteoarthritis (OA), Renal Disease, Sleep Apnea/CPAP/BIPAP Additional Past Medical History / Comment(s): Hx breast ca x2 left breast- radiation and chemo 2003 & 2008, bi-pap machine., Health hx updated with H&P from hospitalization 03/21/20, hx of CVA with left side weakness, DJD, hospitalized for UTI & Renal failure related to dehydration. pt currently resides at [facility], Nurse Esther Rojas LPN- states no sores or rashes, occasional incontinence-wears attends, up with assistance-gait unsteady, speech clear, feeds self- occasional cough when eating, some confusion. 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 Past Psychological History: Depression Smoking Status: Former smoker Past Alcohol Use History: None Reported Past Drug Use History: None Reported - Past Family History Sister(s) Family Medical History: Cancer Additional Family Medical History / Comment(s): 2 sisters had breast ca, one sister had ovarian ca Daughter(s) Family Medical History: Cancer Additional Family Medical History / Comment(s): breast CA <Ena Schilling - Last Filed: 07/24/20 16:14> General Exam Limitations: no limitations General appearance: alert, in no apparent distress Head exam: Present: atraumatic, normocephalic, normal inspection Eye exam: Present: normal appearance, PERRL, EOMI. Absent: scleral icterus, conjunctival injection, periorbital swelling ENT exam: Present: normal exam, mucous membranes moist, other (Patient has evidence of placenta Patient reports is chronic post CVA in January.) Neck exam: Present: normal inspection. Absent: tenderness, meningismus, lymphadenopathy Respiratory exam: Present: normal lung sounds bilaterally. Absent: respiratory distress, wheezes, rales, rhonchi, stridor Cardiovascular Exam: Present: regular rate, normal rhythm, normal heart sounds. Absent: systolic murmur, diastolic murmur, rubs, gallop, clicks GI/Abdominal exam: Present: soft, normal bowel sounds. Absent: distended, tenderness, guarding, rebound, rigid Extremities exam: Present: normal inspection, full ROM, normal capillary refill. Absent: tenderness, pedal edema, joint swelling, calf tenderness Back exam: Present: normal inspection, full ROM Neurological exam: Present: alert, oriented X3, CN II-XII intact Psychiatric exam: Present: normal affect, normal mood Skin exam: Present: warm, dry, intact, normal color. Absent: rash <Ena Schilling - Last Filed: 07/24/20 16:14> - General Exam Comments Initial Comments: Alert and oriented 79-year-old female. No acute distress. (Ena Schilling) Course <Sonny Hannah - Last Filed: 07/24/20 15:54> Vital Signs 07/24/20 07/24/20 07/24/20 13:19 14:17 15:14 Temperature 97.5 F L Pulse Rate 76 58 L 58 L Respiratory 18 18 18 Rate Blood Pressure 163/100 140/95 174/94 O2 Sat by Pulse 96 95 96 Oximetry 07/24/20 07/24/20 15:37 16:03 Temperature Pulse Rate 68 55 L Respiratory 18 18 Rate Blood Pressure 185/95 180/90 O2 Sat by Pulse 98 98 Oximetry - Reevaluation(s) Reevaluation #1: 07/24/20 15:54 PA supervision: Tim who [id number] evaluation the patient. She did present with request for further evaluation. Patient does have a history of CVA she did have outpatient imaging which showed evidence of an acute CVA. He denies any new complaints at this time however. Patient will be admitted for inpatient evaluation treatment the case was discussed with Dr. Eaton from neurology. (Sonny Hannah) Medical Decision Making - Lab Data Result diagrams: 07/24/20 14:12 07/24/20 14:12 <Sonny Hannah - Last Filed: 07/24/20 15:54> - Lab Data Result diagrams: 07/24/20 14:12 07/24/20 14:12 - Radiology Data Radiology results: report reviewed <Ena Schilling - Last Filed: 07/24/20 16:14> - Medical Decision Making 79-year-old feel presents to the ER today for evaluation for abnormal MRI was completed out patiently yesterday. Patient MRI showed concern for subacute infarct on the right posterior region. At this time patient's labs were reviewed no unremarkable. EKG showed no acute changes. I did discuss case with Dr. Gómez with the on-call neurologist who recommended further workup for the acute infarct on the MRI including a CT IBARRA head and neck as well as a 2-D echo and to increase her Lipitor. Patient's case was discussed with Dr. Burch who agrees admission. Dr. Eaton will be on consult. (Ena Schilling) - Lab Data Lab Results 07/24/20 07/24/20 07/24/20 Range/Units 14:12 14:12 14:12 WBC 8.8 (3.8-10.6) k/uL RBC 4.45 (3.80-5.40) m/uL Hgb 14.0 (11.4-16.0) gm/dL Hct 39.7 (34.0-46.0) % MCV 89.3 (80.0-100.0) fL MCH 31.4 (25.0-35.0) pg MCHC 35.2 (31.0-37.0) g/dL RDW 12.8 (11.5-15.5) % Plt Count 338 (150-450) k/uL MPV 7.0 Neutrophils % 58 % Lymphocytes % 27 % Monocytes % 8 % Eosinophils % 5 % Basophils % 1 % Neutrophils # 5.1 (1.3-7.7) k/uL Lymphocytes # 2.4 (1.0-4.8) k/uL Monocytes # 0.7 (0-1.0) k/uL Eosinophils # 0.4 (0-0.7) k/uL Basophils # 0.1 (0-0.2) k/uL PT 10.1 (9.0-12.0) sec INR 1.0 (<1.2) APTT 24.5 (22.0-30.0) sec Sodium 139 (137-145) mmol/L Potassium 3.9 (3.5-5.1) mmol/L Chloride 105 (98-107) mmol/L Carbon Dioxide 30 (22-30) mmol/L Anion Gap 4 mmol/L BUN 19 H (7-17) mg/dL Creatinine 1.10 H (0.52-1.04) mg/dL Est GFR (CKD-EPI)AfAm 56 (>60 ml/min/1.73 sqM) Est GFR (CKD-EPI)NonAf 49 (>60 ml/min/1.73 sqM) Glucose 107 H (74-99) mg/dL Calcium 9.7 (8.4-10.2) mg/dL Total Bilirubin 0.7 (0.2-1.3) mg/dL AST 19 (14-36) U/L ALT 13 (4-34) U/L Alkaline Phosphatase 94 (38-126) U/L Troponin I (0.000-0.034) ng/mL Total Protein 6.7 (6.3-8.2) g/dL Albumin 3.7 (3.5-5.0) g/dL 07/24/20 Range/Units 14:12 WBC (3.8-10.6) k/uL RBC (3.80-5.40) m/uL Hgb (11.4-16.0) gm/dL Hct (34.0-46.0) % MCV (80.0-100.0) fL MCH (25.0-35.0) pg MCHC (31.0-37.0) g/dL RDW (11.5-15.5) % Plt Count (150-450) k/uL MPV Neutrophils % % Lymphocytes % % Monocytes % % Eosinophils % % Basophils % % Neutrophils # (1.3-7.7) k/uL Lymphocytes # (1.0-4.8) k/uL Monocytes # (0-1.0) k/uL Eosinophils # (0-0.7) k/uL Basophils # (0-0.2) k/uL PT (9.0-12.0) sec INR (<1.2) APTT (22.0-30.0) sec Sodium (137-145) mmol/L Potassium (3.5-5.1) mmol/L Chloride (98-107) mmol/L Carbon Dioxide (22-30) mmol/L Anion Gap mmol/L BUN (7-17) mg/dL Creatinine (0.52-1.04) mg/dL Est GFR (CKD-EPI)AfAm (>60 ml/min/1.73 sqM) Est GFR (CKD-EPI)NonAf (>60 ml/min/1.73 sqM) Glucose (74-99) mg/dL Calcium (8.4-10.2) mg/dL Total Bilirubin (0.2-1.3) mg/dL AST (14-36) U/L ALT (4-34) U/L Alkaline Phosphatase (38-126) U/L Troponin I <0.012 (0.000-0.034) ng/mL Total Protein (6.3-8.2) g/dL Albumin (3.5-5.0) g/dL 07/24/20 15:04 EKG shows sinus rhythm with premature atrial complexes. RSR and QR pattern in V1. ST abnormality and possible digitalis effect. Abnormal EKG. Ventricular rate of 62 beats were minute. Was 188 ms. Restrictions 98 ms. QT QTc is 454/460 ms. (Ena Schilling) - Radiology Data CXR Acute evidence for acute pulmonary disease. (Ena Schilling) Disposition <Sonny Hannah - Last Filed: 07/24/20 15:54> Is patient prescribed a controlled substance at d/c from ED?: No Time of Disposition: 16:13 <Ena Schilling - Last Filed: 07/24/20 16:14> Clinical Impression: Abnormal MRI, Hypertension, Cerebrovascular accident (CVA), Dehydration Disposition: ADMITTED IP TO THIS HOSP Condition: Stable Referrals: Viktor Walter DO [Primary Care Provider] - 1-2 days
[2020-07-24] MEDS ORDERED: ASPIRIN 325 MG TAB PO STA (16:14)
[2020-07-24] MEDS: SODIUM CHLORIDE 0.9% 1,000 ML IV SCH (16:28)
[2020-07-24] MEDS ORDERED: hydrALAZINE HCL 20 MG/ML 1 ML VIAL IVP STA (16:57)
--- NOTE | 2020-07-24 17:26 | CT ---
EXAMINATION TYPE: CT angio head neck DATE OF EXAM: 07/24/2020 COMPARISON: HISTORY: Possible CVA. Abnormal MR 3 days [address] per [address] CT DLP: 1631.2 mGycm Automated exposure control for dose reduction was used. CONTRAST: Performed with IV Contrast, patient injected with 65 mL of Isovue 370. The noncontrast images show hypodensity throughout the periventricular white matter. There is mild ce rebral atrophy. There is no mass effect nor midline shift. There is no sign of intracranial hemorrhag e. 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 There is no dissection. There is atheromatous change in the great vessels on the aortic arch. There are a few paratracheal lymph nodes that measure up to 1.5 cm. There is normal branching pattern of the great vessels. There is bilateral arterial flow in the subcl lucy arteries. There is some atherosclerotic plaque at the carotid artery bifurcations. There is lumen narrowing of approximately 30% bilaterally due to the mild plaque formation. There is arterial flow in both verteb ral arteries. I see no evidence of carotid or vertebral artery aneurysm or dissection. There is arterial flow in the anterior middle and posterior cerebral arteries. There is normal contrast opacification of the venous sinuses. There is moderate atherosclerotic plaqu e involving the distal left vertebral artery in the posterior fossa. I see no evidence of intracranial hemodynamic arterial stenosis. IMPRESSION: Mild atherosclerotic plaque formation without evidence of hemodynamic stenosis of the carotid and colette tebral arteries. No hemodynamic stenosis of the intracranial arteries. Cerebral atrophy and chronic small vessel ischemia.
[2020-07-24] MEDS ORDERED: ATORVASTATIN 80 MG TAB PO SCH (21:00)
[2020-07-24] MEDS ORDERED: ALPRAZolam 0.5 MG TAB PO PRN (21:34)
[2020-07-24] MEDS ORDERED: ALPRAZolam 0.5 MG TAB PO SCH (21:45)
[2020-07-24 23:35] VITALS: RESP 16
[2020-07-25 03:19] VITALS: TEMP 98.5
[2020-07-25 07:27] LABS: Cholesterol 162 mg/dL (<200); HDL Cholesterol 34 mg/dL (40-60); LDL Cholesterol,Calculated 98 mg/dL (0-99); Triglycerides 148 mg/dL (<150)
[2020-07-25] MEDS ORDERED: CLOPIDOGREL 75 MG TAB PO SCH (09:00)
[2020-07-25] MEDS ORDERED: ASPIRIN 81 MG PO SCH (09:30)
[2020-07-25] MEDS ORDERED: TICAGRELOR 90 MG TAB PO SCH (09:30)
--- NOTE | 2020-07-25 09:36 | P.CNNES ---
History of Present Illness Consult date: 07/24/20 Requesting physician: Ena Schilling Reason for Consult: acute infarct on MRI Brain History of Present Illness: This is a 79-year-old woman with medical history of subacute stroke on the 01/2020 (left facial weakness, dyarthria and sensory loss on left side), breast cancer, dyslipidemia, hypertension, chronic back presented to the emergency department on 07/24/2020 because of abnormal law MRI of the brain finding on the 07 23 2020. MRI of the brain was reported as punctate acute infarct within the posterior right centrum semiovale. [facility] She denies of any new symptoms. She said most of her symptoms from prior stroke in 01/2020 has resolved. She ambulates byself and denies any assistance with ambulation. She is on aspirin 81mg and Plavix 75mg. As well as she is on Lipitor 20 mg. And she said she denied missing any of her medications. She denies of atrial fibrillation. She is follow-up with the Dr. Gaitan for her neurological management has an appointment coming up next week. Also the recent MRI Brain /(07/23/2020) at outside facility: Is reported there is severe chronic small vessel ischemic disease. There is a 3 mm dural calcification in the calcified meningioma. Mild sinus inflammatory change. Current hospital workup: CT angiography of the head and neck was reported as mild atherosclerotic plaque formation without evidence of hemodynamic stenosis of the carotid and vertebral arteries at. No hemodynamic stenosis of the intracranial arteries at. Cerebral atrophy and chronic small vessel ischemia. EKG is reported as sinus rhythm with premature atrial complexes. RSR or QR pattern in V1 suggests right ventricular conduction delay. ST abnormality, possible digitalis effect. Abnormal EKG. Personally saw the patient and the January 2020 for dysarthria, left facial weakness and sensory loss over the left side that. She had NIH of a 3 at. TPA was not given the since the patient's symptoms are improving. MRI the brain showed subacute ischemia in the posterior limb of the right internal capsule and the right parietal as well as small vessel disease. Patient had CT angiography of the head and neck at that time and did not show any evidence of stenosis or proximal internal carotid artery patent. She also had the lipid panel and the LDL was 95. She was notified to continue to dual antiplatelets aspirin and Plavix 75 mg and continue the Lipitor 20 mg. She was counseled on tobacco cessation at that time. 2-D echo showed that the ejection fraction was 55-60%. Moderate residual left ventricle atrophy. Review of Systems Review of system: The 12 point system was reviewed and apparent positive and negative per HPI. Past Medical History Past Medical History: Cancer, COPD, CVA/TIA, Dementia, Hyperlipidemia, Hypertension, Osteoarthritis (OA), Renal Disease, Sleep Apnea/CPAP/BIPAP Additional Past Medical History / Comment(s): Hx breast ca x2 left breast- radiation and chemo 2003 & 2008, bi-pap machine., Health hx updated with H&P from hospitalization 03/21/20, hx of CVA with left side weakness, DJD, hospitalized for UTI & Renal failure related to dehydration. pt currently resides at [facility], Nurse Esther Rojas, [facility]- states no sores or rashes, occasional incontinence-wears attends, up with assistance-gait unsteady, speech clear, feeds self- occasional cough when eating, some confusion. 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 Past Psychological History: Depression Smoking Status: Former smoker Past Alcohol Use History: None Reported Past Drug Use History: None Reported - Past Family History Sister(s) Family Medical History: Cancer Additional Family Medical History / Comment(s): 2 sisters had breast ca, one sister had ovarian ca Daughter(s) Family Medical History: Cancer Additional Family Medical History / Comment(s): breast CA Medications and Allergies Home Medications Medication Instructions Recorded Confirmed Type Cholecalciferol [Vitamin D3 (25 2,000 unit PO BID@0800,199903/09/17 07/24/20 History Mcg = 1000 Iu)] Verapamil HCl [Calan] 120 mg PO DAILY@1200 06/16/19 07/24/20 History buPROPion HCL [Wellbutrin XL] 150 mg PO DAILY@0800 06/16/19 07/24/20 History Glucos Sul 2Kcl/MSM/Chond/C/Mn 1 cap PO HS@199902/12/20 07/24/20 History [Glucosamine Chondroitin Cap] Multivitamins, Thera [Multivitamin 1 tab PO DAILY@0800 02/12/20 07/24/20 History (formulary)] Aspirin 81 mg PO DAILY@0800 03/21/20 07/24/20 History Clopidogrel [Plavix] 75 mg PO DAILY@0800 03/21/20 07/24/20 History Fluticasone Propionate [Flovent 1 puff INHALATION RT-BID@0800,199907/24/20 07/24/20 History Diskus] atenoloL [Tenormin] 50 mg PO DAILY@0800 07/24/20 07/24/20 History Atorvastatin [Lipitor] 80 mg PO HS 30 Days #30 tab 07/25/20 Rx Ticagrelor [Brilinta] 90 mg PO BID #60 tab 07/25/20 Rx Allergies Allergy/AdvReac Type Severity Reaction Status Date / Time No Known Allergies Allergy Verified 07/24/20 16:12 Physical Examination - Vital Signs Vital Signs: Vital Signs Temp Pulse Resp BP Pulse Ox 07/24/20 18:12 74 18 164/101 98 07/24/20 17:02 68 18 168/95 98 07/24/20 16:31 70 18 175/90 98 07/24/20 16:03 55 L 18 180/90 98 07/24/20 15:37 68 18 185/95 98 07/24/20 15:14 58 L 18 174/94 96 07/24/20 14:17 58 L 18 140/95 95 07/24/20 13:19 97.5 F L 76 18 163/100 96 Intake and Output 07/24/20 07/24/20 07/24/20 06:59 14:59 22:59 Other: Weight 89.403 kg GENERAL: The patient is lying in bed and is not in acute distress. CHEST: The heart rate is regular rate rhythm. No murmurs to auscultation. No carotid bruit bilaterally. LUNG: Clear to auscultation bilaterally no wheezing noted throughout. Not labored breathing. ABDOMEN/GI: Bowel sounds present in all 4 quadrants. No tenderness to palpation throughout. NEUROLOGICAL: Higher mental function: The patient is awake, alert, oriented to self, place and time. Patient is following commands. No aphasia and no neglect. Cranial nerves: The pupils are round, equal and reactive to light and accommodation. Visual lance are full to confrontation throughout. Extraocular movement is intact no nystagmus is noted. Facial sensation is normal to touch throughout. The is mild left nasolabial flattening (old). Hearing is normal bilaterally to hand rub. Tongue is midline and moved [id number] without any difficulty. No dysarthria is noted. Shoulder shrug is normal bilaterally. Motor: Gait is normal with normal arm swings. The strength is 5 over 5 throughout. Normal tone and bulk. Cerebellum: Normal finger to nose bilaterally. Sensation: Sensation is normal to touch throughout. Reflexes (right/left): 2+ throughout except ankles are 1+. Plantars is upgoing at baseline over the left while the right is downgoing. Results Correlation study as the PT of 10.1, INR 1.0, PTT of 24.5. - Laboratory Findings CBC and BMP: 07/24/20 14:12 07/24/20 14:12 Abnormal Lab Findings: Abnormal Labs 07/24/20 14:12 BUN 19 H Creatinine 1.10 H Glucose 107 H Assessment and Plan Assessment: This is a 79-year-old woman who recently had a stroke on 2019 (posterior limb of the right internal capsule and the right parietal) who presented emergency department on 07/24/2020 and because of abnormal MRI of the brain. MRI of the brain is reported as MRI of the brain was reported as punctate acute infarct within the posterior right centrum semiovale. Acute ischemic stroke (from recent MRI Brain report reported as punctate acute infarct within the posterior right centrum semiovale) but has no new neurological symptoms. Etiology possibly cardioembolic. History of stroke in 2019 (posterior limb of the right internal capsule and the right parietal) Hypertension Dyslipidemia Breast cancer Tobacco use Plan: Patient is currently on aspirin 325 and Plavix 75 (at home she is on aspirin 81 and Plavix 75mg). Since the patient failed her regimen. I started the patient on Brilinta 90mg 1 tab bid and stopped Plavix. I decreased the ASA 325mg to home dose of ASA 81mg daily. Patient need to continue being on dual antiplatelets for 21 days then discontinue ASA 81mg while indefinetly continue Brilinta. Lipitor was increased from 20 mg 80 mg. 2-D echo and lipid panel is ordered and is pending. Asked cardiology for bubble study. Cardiology is consulted. Asked for event monitor. Patient refused Transesophageal echocardiogram (since having recurrent stroke wanted to rule out left atrial appendage clot and large PFO). Physical therapy and occupation therapy is consulted. Cardiac monitoring Regarding the patient medical management will defer to the primary team. Patient wants to be discharged home today. If work-up is complete today then can be discharged. She needs to follow-up with her Neurologist (Dr. Gaitan) within 1-2 weeks. The plan was discussed with the patient and cardiology team. Thank for the consultation. Daniel Eaton MD Neuro-hospitalist Time with Patient: Greater than 30
[2020-07-25] MEDS: SODIUM CHLORIDE 0.9% 1,000 ML IV SCH ×2 (09:48→13:26)
[2020-07-25] MEDS ORDERED: atenoloL 50 MG TAB PO SCH (10:00)
--- NOTE | 2020-07-25 11:02 | P.CRDCN ---
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 Patient does not follow in the office with a pouncing machine operator. We have been asked to see the patient in consultation for KATHY. Patient was admitted to the hospital after undergoing an outpatient MRI revealing punctate acute infarct within the posterior right centrum semiovale. She denies any numbness or weakness of upper or lower extremities. Denies chest pain or pressure. Denies shortness of breath. She denies dizziness or lightheadedness. She denies history of afib. She states she had palpations about 15 years ago but never had a workup done for it. DIAGNOSTICS: EKG reveals SR with no signs of acute ischemia Chest xray negative for acute process Laboratory data: WBC 8.8. Hemoglobin 14.0. Platelet count 338. Sodium 139. Potassium 3.9. BUN 19. Creatinine 1.10. Troponin negative 1. Current home cardiac medications include aspirin 81 mg daily, Lipitor 20 mg daily, Plavix 75 mg daily, atenolol 50 mg daily, and verapamil 120 mg daily REVIEW OF SYSTEMS: At the time of my exam: CONSTITUTIONAL: Denies fever or chills. HEENT: Denies blurred vision, vision changes, or eye pain. Denies hemoptysis CARDIOVASCULAR: Denies chest pain, orthopnea, PND or palpitations RESPIRATORY: No shortness of breath. GASTROINTESTINAL: Denies abdominal pain. Denies nausea or vomiting. HEMATOLOGIC: Denies bleeding disorders. GENITOURINARY: Denies any blood in urine. SKIN: Denies pruitis. Denies rash. PHYSICAL EXAM: VITAL SIGNS: Reviewed. GENERAL: Well-developed in no acute distress. HEENT: Head is normocephalic. Pupils are equal, round. Sclerae anicteric. Mucous membranes of the mouth are moist. Neck supple. No JVD or thyromegaly LUNGS: Respirations even and unlabored. Lungs essentially clear to auscultation bilaterally. HEART: Regular rate and rhythm. S1 and S2 heard. Systolic murmur noted. ABDOMEN: Soft. Nondistended. Nontender. EXTREMITIES: Normal range of motion. No clubbing or cyanosis. Peripheral pulses intact. No lower extremity edema NEUROLOGIC: Awake and alert. Oriented x 3. ASSESSMENT: Acute ischemic CVA History of CVA, January 2020 Hypertension Hyperlipidemia PLAN: Obtain 2D echo to assess cardiac structure and function Continue aspirin, brilinta, and Lipitor Resume home meds: Atenolol and verapamil Dr. Eaton requesting KATHY. Patient refusing to have KATHY performed inpatient because she would like to be discharged home. She will require KATHY on an outpatient basis Patient to have event monitor placed today Patient to follow up with Dr. Asif Knox for discharge from a cardiac standpoint today pending echo report Nurse practitioner note has been reviewed by physician. Signing provider agrees with the documented findings, assessment, and plan of care. Past Medical History Past Medical History: Cancer, COPD, CVA/TIA, Dementia, Hyperlipidemia, Hypertension, Osteoarthritis (OA), Renal Disease, Sleep Apnea/CPAP/BIPAP Additional Past Medical History / Comment(s): Hx breast ca x2 left breast- radiation and chemo 2003 & 2008, bi-pap machine., Health hx updated with H&P from hospitalization 03/21/20, hx of CVA with left side weakness, DJD, hospitalized for UTI & Renal failure related to dehydration. pt currently resides at [facility], Nurse Esther Rojas LPN- states no sores or rashes, occasional incontinence-wears attends, up with assistance-gait unsteady, speech clear, feeds self- occasional cough when eating, some confusion. 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 Past Psychological History: Depression Smoking Status: Former smoker Past Alcohol Use History: None Reported Past Drug Use History: None Reported - Past Family History Sister(s) Family Medical History: Cancer Additional Family Medical History / Comment(s): 2 sisters had breast ca, one sister had ovarian ca Daughter(s) Family Medical History: Cancer Additional Family Medical History / Comment(s): breast CA Medications and Allergies Home Medications Medication Instructions Recorded Confirmed Type Atorvastatin [Lipitor] 20 mg PO HS@199902/26/17 07/24/20 History Cholecalciferol [Vitamin D3 (25 2,000 unit PO BID@08,199903/09/17 07/24/20 History Mcg = 1000 Iu)] Verapamil HCl [Calan] 120 mg PO DAILY@1200 06/16/19 07/24/20 History buPROPion HCL [Wellbutrin XL] 150 mg PO DAILY@0800 06/16/19 07/24/20 History Glucos Sul 2Kcl/MSM/Chond/C/Mn 1 cap PO HS@199902/12/20 07/24/20 History [Glucosamine Chondroitin Cap] Multivitamins, Thera [Multivitamin 1 tab PO DAILY@0800 02/12/20 07/24/20 History (formulary)] Aspirin 81 mg PO DAILY@0800 03/21/20 07/24/20 History Clopidogrel [Plavix] 75 mg PO DAILY@0800 03/21/20 07/24/20 History Fluticasone Propionate [Flovent 1 puff INHALATION RT-BID@0807/24/20 07/24/20 History Diskus] atenoloL [Tenormin] 50 mg PO DAILY@0800 07/24/20 07/24/20 History Allergies Allergy/AdvReac Type Severity Reaction Status Date / Time No Known Allergies Allergy Verified 07/24/20 16:12 Physical Exam Vitals: Vital Signs Temp Pulse Pulse Resp BP BP Pulse Ox 07/25/20 03:16 98.5 F 87 16 108/68 07/25/20 01:47 16 07/24/20 23:16 97.7 F 67 16 166/102 94 L 07/24/20 21:15 18 07/24/20 20:00 97.5 F L 95 18 164/101 95 07/24/20 19:32 76 18 181/109 07/24/20 18:12 74 18 164/101 98 07/24/20 17:07 97.8 F 71 16 186/93 97 07/24/20 17:02 68 18 168/95 98 07/24/20 16:31 70 18 175/90 98 07/24/20 16:03 55 L 18 180/90 98 07/24/20 15:37 68 18 185/95 98 12/23/20 15:14 58 L 18 174/94 96 07/24/20 14:17 58 L 18 140/95 95 07/24/20 13:19 97.5 F L 76 18 163/100 96 Intake and Output 07/24/20 07/25/20 07/25/20 22:59 06:59 14:59 Other: # Voids 1 1 Weight 89.403 kg 82.5 kg Results 07/24/20 14:12 07/24/20 14:12 Cardiac Enzymes 07/24/20 07/24/20 Range/Units 14:12 14:12 AST 19 (14-36) U/L Troponin I <0.012 (0.000-0.034) ng/mL Coagulation 07/24/20 Range/Units 14:12 PT 10.1 (9.0-12.0) sec APTT 24.5 (22.0-30.0) sec Lipids 07/24/20 Range/Units 14:12 Triglycerides 148 (<150) mg/dL Cholesterol 162 (<200) mg/dL HDL Cholesterol 34 L (40-60) mg/dL CBC 07/24/20 Range/Units 14:12 WBC 8.8 (3.8-10.6) k/uL RBC 4.45 (3.80-5.40) m/uL Hgb 14.0 (11.4-16.0) gm/dL Hct 39.7 (34.0-46.0) % Plt Count 338 (150-450) k/uL Comprehensive Metabolic Panel 07/24/20 Range/Units 14:12 Sodium 139 (137-145) mmol/L Potassium 3.9 (3.5-5.1) mmol/L Chloride 105 (98-107) mmol/L Carbon Dioxide 30 (22-30) mmol/L BUN 19 H (7-17) mg/dL Creatinine 1.10 H (0.52-1.04) mg/dL Glucose 107 H (74-99) mg/dL Calcium 9.7 (8.4-10.2) mg/dL AST 19 (14-36) U/L ALT 13 (4-34) U/L Alkaline Phosphatase 94 (38-126) U/L Total Protein 6.7 (6.3-8.2) g/dL Albumin 3.7 (3.5-5.0) g/dL Current Medications Generic Name Dose Route Start Last Admin Trade Name Freq PRN Reason Stop Dose Admin Alprazolam 0.5 mg 07/24/20 21:34 Alprazolam 0.5 Mg Tab PO TID PRN Anxiety Alprazolam 0.5 mg 07/24/20 21:45 07/24/20 21:48 Alprazolam 0.5 Mg Tab PO 0.5 mg HS CABRERA Administration Aspirin 81 mg 07/25/20 09:30 07/25/20 09:51 Aspirin 81 Mg PO 81 mg DAILY CABRERA Administration Atenolol 50 mg 07/25/20 10:00 07/25/20 09:51 Atenolol 50 Mg Tab PO 50 mg DAILY@0800 CABRERA Administration Atorvastatin Calcium 80 mg 07/24/20 21:00 07/24/20 20:10 Atorvastatin 80 Mg Tab PO 80 mg HS CABRERA Administration Sodium Chloride 1,000 mls @ 100 mls/hr 07/24/20 16:15 07/25/20 09:48 Saline 0.9% IV Not Given .Q10H CABRERA Ticagrelor 90 mg 07/25/20 09:30 07/25/20 09:51 Ticagrelor 90 Mg Tab PO 90 mg BID CABRERA Administration Verapamil HCl 120 mg 07/25/20 12:00 Verapamil 40 Mg Tab PO DAILY@1200 CABRERA Intake and Output 07/24/20 07/25/20 07/25/20 22:59 06:59 14:59 Other: # Voids 1 1 Weight 89.403 kg 82.5 kg 07/24/20 14:12 07/24/20 14:12
[2020-07-25] MEDS ORDERED: VERAPAMIL 40 MG TAB PO SCH (12:00)
[2020-07-25] MEDS ORDERED: ASPIRIN 325 MG TAB PO SCH ×2 (12:00→16:15)
--- NOTE | 2020-07-25 12:08 | P.HPIM ---
History of Present Illness H&P Date: 07/25/20 Chief Complaint: Abnormal MRI Patient is a pleasant 79-year-old female resident of [facility] care [facility], patient had a follow-up MRI of her brain from previous a stroke in January, that MRI showed punctate acute infarct within the posterior right centrum semiovale, along with a small vessel ischemic changes with dural calcification and meningioma patient admitted in the hospital and neurology consultation evaluation she has been on aspirin and Plavix denies any chest pain shortness of breath denies any dizziness lightheadedness, cardiology and neuro has been consulted, Review of Systems All systems: negative Past Medical History Past Medical History: Cancer, COPD, CVA/TIA, Dementia, Hyperlipidemia, Hypertension, Osteoarthritis (OA), Renal Disease, Sleep Apnea/CPAP/BIPAP Additional Past Medical History / Comment(s): Hx breast ca x2 left breast- radiation and chemo 2003 & 2008, bi-pap machine., Health hx updated with H&P from hospitalization 03/21/20, hx of CVA with left side weakness, DJD, hospitalized for UTI & Renal failure related to dehydration. pt currently resides at [facility], Nurse Esther Rojas LPN- states no sores or rashes, occasional incontinence-wears attends, up with assistance-gait unsteady, speech clear, feeds self- occasional cough when eating, some confusion. 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 Past Psychological History: Depression Smoking Status: Former smoker Past Alcohol Use History: None Reported Past Drug Use History: None Reported - Past Family History Sister(s) Family Medical History: Cancer Additional Family Medical History / Comment(s): 2 sisters had breast ca, one sister had ovarian ca Daughter(s) Family Medical History: Cancer Additional Family Medical History / Comment(s): breast CA Medications and Allergies Home Medications Medication Instructions Recorded Confirmed Type Atorvastatin [Lipitor] 20 mg PO HS@199902/26/17 07/24/20 History Cholecalciferol [Vitamin D3 (25 2,000 unit PO BID@0803/09/17 07/24/20 History Mcg = 1000 Iu)] Verapamil HCl [Calan] 120 mg PO DAILY@1200 06/16/19 07/24/20 History buPROPion HCL [Wellbutrin XL] 150 mg PO DAILY@0800 06/16/19 07/24/20 History Glucos Sul 2Kcl/MSM/Chond/C/Mn 1 cap PO HS@199902/12/20 07/24/20 History [Glucosamine Chondroitin Cap] Multivitamins, Thera [Multivitamin 1 tab PO DAILY@0802/12/20 07/24/20 History (formulary)] Aspirin 81 mg PO DAILY@0800 03/21/20 07/24/20 History Clopidogrel [Plavix] 75 mg PO DAILY@0800 03/21/20 07/24/20 History Fluticasone Propionate [Flovent 1 puff INHALATION RT-BID@07/24/20 07/24/20 History Diskus] atenoloL [Tenormin] 50 mg PO DAILY@0800 07/24/20 07/24/20 History Allergies Allergy/AdvReac Type Severity Reaction Status Date / Time No Known Allergies Allergy Verified 07/24/20 16:12 Physical Exam Vitals: Vital Signs Temp Pulse Pulse Resp BP BP Pulse Ox 07/25/20 08:00 77 180/86 96 07/25/20 07:16 82 07/25/20 03:16 98.5 F 87 16 108/68 07/25/20 01:47 16 07/24/20 23:16 97.7 F 67 16 166/102 94 L 07/24/20 21:15 18 07/24/20 20:00 97.5 F L 95 18 164/101 95 07/24/20 19:32 76 18 181/109 07/24/20 18:12 74 18 164/101 98 07/24/20 17:07 97.8 F 71 16 186/93 97 07/24/20 17:02 68 18 168/95 98 07/24/20 16:31 70 18 175/90 98 07/24/20 16:03 55 L 18 180/90 98 07/24/20 15:37 68 18 185/95 98 07/24/20 15:14 58 L 18 174/94 96 07/24/20 14:17 58 L 18 140/95 95 07/24/20 13:19 97.5 F L 76 18 163/100 96 Intake and Output 07/24/20 07/25/20 07/25/20 22:59 06:59 14:59 Other: # Voids 1 1 2 Weight 89.403 kg 82.5 kg - Constitutional General appearance: average body habitus, disheveled - EENT Eyes: PERRLA Ears: bilateral: normal - Neck Carotids: bilateral: upstroke normal Thyroid: bilateral: normal size - Respiratory Respiratory: bilateral: CTA - Cardiovascular Rhythm: regular Heart sounds: normal: S1, S2 - Gastrointestinal General gastrointestinal: normal bowel sounds - Neurologic Neurologic: CNII-XII intact - Musculoskeletal Musculoskeletal: gait normal, generalized weakness, strength equal bilaterally - Psychiatric Psychiatric: A&O x's 3, appropriate affect, intact judgment & insight Results CBC & Chem 7: 07/24/20 14:12 07/24/20 14:12 Labs: Abnormal Lab Results - Last 24 Hours (Table) 07/24/20 07/24/20 Range/Units 14:12 14:12 BUN 19 H (7-17) mg/dL Creatinine 1.10 H (0.52-1.04) mg/dL Glucose 107 H (74-99) mg/dL HDL Cholesterol 34 L (40-60) mg/dL Thrombosis Risk Factor Assmnt - Choose All That Apply Any of the Below Risk Factors Present?: Yes Each Factor Represents 1 point: Abnormal pulmonary function (COPD), Obesity (BMI >25) Other Risk Factors: Yes Each Risk Factor Represents 3 Points: Age 75 years or older Thrombosis Risk Factor Assessment Total Risk Factor Score: 5 Thrombosis Risk Factor Assessment Level: High Risk Assessment and Plan Assessment: Recent acute ischemic CVA History of CVA in January 2020 Hypertension hypertensive cardiovascular disease Dyslipidemia Morbid obesity Dementia COPD Obstructive sleep apnea Estriol breast cancer status post chemo and radiation Left-sided residual weakness Plan: Patient is being admitted into hospital with the further workup and evaluation from the cardiovascular services and neurology consult services awaiting their recommendation Time with Patient: Greater than 30
--- NOTE | 2020-07-25 12:18 | P.DS ---
Providers Date of admission: 07/24/20 15:36 Expected date of discharge: 07/25/20 Attending physician: Johnnie Norris Consults: 07/24/20 16:14 Consult Physician Urgent Consulting Provider: Daniel Eaton Consult Reason/Comments: Acute infarct MRI Do you want consulting provider notified?: Yes 07/25/20 09:18 Consult Physician Routine Consulting Provider: Anival Gold Consult Reason/Comments: rule out cardioemboli. Do you want consulting provider notified?: Already Contacted Primary care physician: [facility] Course: 07/25/2020, patient seen and evaluated examined, patient was admitted into the hospital with possible evaluation of acute ischemic CVA with history of CVA in January 2020, patient has been recommended KATHY by neurology, cardiovascular services has evaluated the patient, patient declined the EEG, patient has been advised by cardiovascular services to continue aspirin. Alimta and Lipitor, and continuation of home medications, and will be followed up with cardiovascular services and neurology service Patient is a pleasant 79-year-old female resident of [facility], patient had a follow-up MRI of her brain from previous a stroke in January, that MRI showed punctate acute infarct within the posterior right centrum semiovale, along with a small vessel ischemic changes with dural calcification and meningioma patient admitted in the hospital and neurology consultation evaluation she has been on aspirin and Plavix denies any chest pain shortness of breath denies any dizziness lightheadedness, cardiology and neuro has been consulted, Assessment: Acute ischemic CVA with finding of punctate acute infarcts within the posterior right centrum semiovale History of CVA in January 2020 with residual weakness fascial some dysarthria and sensory loss on the left side Hypertension hypertensive cardiovascular disease Dyslipidemia Morbid obesity Dementia COPD Obstructive sleep apnea Estriol breast cancer status post chemo and radiation Left-sided residual weakness Health Concerns: Fall precautions Pertinent Studies: CT angiographically, chest x-ray, neurology and cardiovascular consultation Patient Condition at Discharge: Fair Plan - Discharge Summary Discharge Rx Participant: No New Discharge Prescriptions: New Ticagrelor [Brilinta] 90 mg PO BID #60 tab Atorvastatin [Lipitor] 80 mg PO HS 30 Days #30 tab Continue Cholecalciferol [Vitamin D3 (25 Mcg = 1000 Iu)] 2,000 unit PO BID@0800,2000 Verapamil HCl [Calan] 120 mg PO DAILY@1200 buPROPion HCL [Wellbutrin XL] 150 mg PO DAILY@0800 Glucos Sul 2Kcl/MSM/Chond/C/Mn [Glucosamine Chondroitin Cap] 1 cap PO HS@1999 Multivitamins, Thera [Multivitamin (formulary)] 1 tab PO DAILY@0800 Aspirin 81 mg PO DAILY@0800 Clopidogrel [Plavix] 75 mg PO DAILY@0800 atenoloL [Tenormin] 50 mg PO DAILY@0800 Fluticasone Propionate [Flovent Diskus] 1 puff INHALATION RT-BID@ Discontinued Atorvastatin [Lipitor] 20 mg PO HS@1999 Discharge Medication List Cholecalciferol [Vitamin D3 (25 Mcg = 1000 Iu)] 2,000 unit PO BID@03/09/17 [History] Verapamil HCl [Calan] 120 mg PO DAILY@1200 06/16/19 [History] buPROPion HCL [Wellbutrin XL] 150 mg PO DAILY@0800 06/16/19 [History] Glucos Sul 2Kcl/MSM/Chond/C/Mn [Glucosamine Chondroitin Cap] 1 cap PO HS@199902/12/20 [History] Multivitamins, Thera [Multivitamin (formulary)] 1 tab PO DAILY@0800 02/12/20 [History] Aspirin 81 mg PO DAILY@0800 03/21/20 [History] Clopidogrel [Plavix] 75 mg PO DAILY@0800 03/21/20 [History] Fluticasone Propionate [Flovent Diskus] 1 puff INHALATION RT-BID@07/24/20 [History] atenoloL [Tenormin] 50 mg PO DAILY@0800 07/24/20 [History] Atorvastatin [Lipitor] 80 mg PO HS 30 Days #30 tab 07/25/20 [Rx] Ticagrelor [Brilinta] 90 mg PO BID #60 tab 07/25/20 [Rx] Follow up Appointment(s)/Referral(s): Viktor Walter DO [Primary Care Provider] - 1-2 days Anival Gold MD [STAFF PHYSICIAN] - 1 Week
[2020-07-25 15:24] VITALS: PULSE 71
[2020-07-25 15:26] VITALS: BP 143/83
--- NOTE | 2020-07-25 17:55 | ECHOF ---
Referral Reason:Thrombus MEASUREMENTS -------- HEIGHT: 170.2 cm WEIGHT: 82.1 kg BP: RVIDd: 3.5 cm (< 3.3) IVSd: 1.2 cm (0.6 - 1.1) LVIDd: 4.7 cm (3.9 - 5.3) LVPWd: 1.6 cm (0.6 - 1.1) IVSs: 1.4 cm LVIDs: 3.4 cm LVPWs: 1.9 cm LAESV Index (A-L): 33.57 ml/m Ao Diam: 3.4 cm (2.0 - 3.7) MV EXCURSION: 13.883 mm (> 18.000) MV EF SLOPE: 46 mm/s (70 - 150) EPSS: 0.9 cm MV E Anatoliy: 0.73 m/s MV DecT: 302 ms MV A Anatoliy: 1.09 m/s MV E/A Ratio: 0.67 AV maxP.78 mmHg AV meanP.09 mmHg RAP: 5.00 mmHg RVSP: 29.04 mmHg FINDINGS -------- Sinus rhythm. This was a technically good study. The left ventricular size is normal. There is mild concentric left ventricular hypertrophy. Overa ll left ventricular systolic function is normal with, an EF between 55 - 60 %. The right ventricle is normal in size. LA is midly dilated 29-33ml/m2. The right atrial size is normal. There is mild aortic stenosis present. Peak/mean gradient across the Aortic Valve is 20.78mmHg / 9. 09mmHg. Mild mitral annular calcification present. Mild mitral regurgitation is present. The peak and me an MV gradients are 6.01mmHg 1.57mmHg as measured by doppler. Mild tricuspid regurgitation present. The right ventricular systolic pressure, as measured by Doppl er, is 29.04mmHg. Trace/mild (physiologic) pulmonic regurgitation. The aortic root size is normal. Echo free space represents a pericardial fat pad. CONCLUSIONS -------- 1. The left ventricular size is normal. 2. There is mild concentric left ventricular hypertrophy. 3. Overall left ventricular systolic function is normal with, an EF between 55 - 60 %. 4. The right ventricle is normal in size. 5. LA is midly dilated 29-33ml/m2. 6. The right atrial size is normal. 7. There is mild aortic stenosis present. 8. Peak/mean gradient across the Aortic Valve is 20.78mmHg / 9.09mmHg. 9. Mild mitral annular calcification present. 10. Mild mitral regurgitation is present. 11. The peak and mean MV gradients are 6.01mmHg 1.57mmHg as measured by doppler. 12. Mild tricuspid regurgitation present. 13. The right ventricular systolic pressure, as measured by Doppler, is 29.04mmHg. 14. Trace/mild (physiologic) pulmonic regurgitation. 15. The aortic root size is normal. 16. Echo free space represents a pericardial fat pad. MAINTENANCE TECHNICIAN 3RD SHIFT: Roxanna Russo RDCS
== END 2020-07-25 17:35 | DRG 65 ==
LOC: EC 13:12 → 3SCARD 15:36
PROVIDERS: ADMIT Internal Medicine Sleep Medicine; ATTEND Internal Medicine Sleep Medicine
DX: I63.9 Cerebral infarction, unspecified (principal); I69.354 Hemiplegia and hemiparesis following cerebral infarction affecting left non-dominant side; G47.33 Obstructive sleep apnea (adult) (pediatric); F32.9 Major depressive disorder, single episode, unspecified; E66.01 Morbid (severe) obesity due to excess calories; E78.5 Hyperlipidemia, unspecified; E86.0 Dehydration; F03.90 Unspecified dementia, unspecified severity, without behavioral disturbance, psychotic disturbance, mood disturbance, and anxiety; I73.9 Peripheral vascular disease, unspecified; Z96.611 Presence of right artificial shoulder joint; I11.9 Hypertensive heart disease without heart failure; I49.1 Atrial premature depolarization; J44.9 Chronic obstructive pulmonary disease, unspecified; Z79.02 Long term (current) use of antithrombotics/antiplatelets; Z79.51 Long term (current) use of inhaled steroids; Z79.82 Long term (current) use of aspirin; Z79.899 Other long term (current) drug therapy; Z80.3 Family history of malignant neoplasm of breast; Z80.41 Family history of malignant neoplasm of ovary; Z85.3 Personal history of malignant neoplasm of breast; Z86.011 Personal history of benign neoplasm of the brain; Z87.891 Personal history of nicotine dependence; Z90.710 Acquired absence of both cervix and uterus; Z92.21 Personal history of antineoplastic chemotherapy; Z92.3 Personal history of irradiation
CPT/HCPCS: 36415; 70496; 70498; 71046; 80053; 80061; 84484; 85025; 85610; 85730; 93005; 93270; 93306; 96361; 96374; 99285

== ENCOUNTER 2020-09-05 07:19 | Day surgery (SDC) | payer MEDICARE, OTHER ==
[2020-09-04 09:27] VITALS: BMI 29.2
== END 2020-09-05 07:56 ==
LOC: CATHCVL 07:19
PROVIDERS: ATTEND Internal Medicine Cardiovascular Disease
DX: Z86.73 Personal history of transient ischemic attack (TIA), and cerebral infarction without residual deficits (principal); Z53.29 Procedure and treatment not carried out because of patient's decision for other reasons

== ENCOUNTER 2021-02-23 04:24 | Emergency (ER) | payer MEDICARE, OTHER ==
[2021-02-23 04:31] VITALS: RESP 18; TEMP 98.1
--- NOTE | 2021-02-23 05:29 | XR ---
EXAMINATION TYPE: XR knee complete RT DATE OF EXAM: 02/23/2021 COMPARISON: 03/09/2017 HISTORY: Knee pain TECHNIQUE: 3 views FINDINGS: There is right knee prosthesis. There is a soft tissue swelling anterior to the patella. Th ere is vascular calcification. Prosthesis components appear in anatomic position. IMPRESSION: Anterior soft tissue swelling. No fracture.
--- NOTE | 2021-02-23 05:40 | CT ---
EXAMINATION TYPE: CT brain michael wo con DATE OF EXAM: 02/23/2021 COMPARISON: 06/21/2020 and 02/26/2020 HISTORY: fall. prior on PACs CT DLP: 1439 mGycm Automated exposure control for dose reduction was used. There is cerebral cortical atrophy. There is moderate hypodensity in the periventricular white matter . There is no mass effect nor midline shift. There is no sign of intracranial hemorrhage. There is fr ontal midline scalp hematoma that measures 1.3 cm in thickness. The calvarium is intact. The cervical vertebra have normal alignment. There is degenerative disc space narrowing at C5-6 and C 6-7 with spurring of the endplates. Posterior elements are intact. Facet joints are intact. The skull base is intact. There is normal aeration of the mastoid sinuses. There is no evidence of cervical sp ine fracture. IMPRESSION: Cerebral atrophy and chronic small vessel ischemia unchanged. Large frontal scalp hematoma. Spondylotic changes in the lower cervical spine. No fracture. No change.
--- NOTE | 2021-02-23 07:04 | CT ---
EXAMINATION TYPE: CT facial bones wo con DATE OF EXAM: 02/23/2021 COMPARISON: None HISTORY: Fall CT DLP: Images pulled from original brain cervical scan with no extra radiation to patient mGycm Automated exposure control for dose reduction was used. Images obtained from the bottom of the maxilla to the top of the orbits without contrast. The maxilla is intact. Zygomatic arches are intact. There is anterior nasal pharyngeal increased dens ity consistent with blood clot and debris. The nasal bone is intact. There is no evidence of orbital blowout fracture. There is no evidence of retro-orbital mass. The globes are symmetric. There is midline frontal scalp hematoma that measures 1.3 cm in thickness. The frontal bone is intact . IMPRESSION: Blood clot and debris in the anterior nasopharynx. Large frontal scalp hematoma. No fracture seen.
--- NOTE | 2021-02-23 07:20 | ED ---
Fall HPI - General Chief Complaint: Fall Stated Complaint: Fall Time Seen by Provider: 02/23/21 04:42 Source: patient, EMS, Caregiver Mode of arrival: EMS - Related Data Home Medications Medication Instructions Recorded Confirmed Cholecalciferol [Vitamin D3 (25 2,000 unit PO BID@0800,199903/09/17 09/04/20 Mcg = 1000 Iu)] Verapamil HCl [Calan] 120 mg PO DAILY@1200 06/16/19 09/04/20 buPROPion HCL [Wellbutrin XL] 150 mg PO DAILY@0800 06/16/19 09/04/20 Glucos Sul 2Kcl/MSM/Chond/C/Mn 1 cap PO HS@199902/12/20 09/04/20 [Glucosamine Chondroitin Cap] Multivitamins, Thera [Multivitamin 1 tab PO DAILY@0802/12/20 09/04/20 (formulary)] Aspirin 81 mg PO DAILY@0803/21/20 09/04/20 Clopidogrel [Plavix] 75 mg PO DAILY@79903/21/20 09/04/20 Fluticasone Propionate [Flovent 1 puff INHALATION RT-BID@08,199907/24/20 09/04/20 Diskus] atenoloL [Tenormin] 50 mg PO DAILY@79907/24/20 09/04/20 Atorvastatin [Lipitor] 20 mg PO HS 09/04/20 09/04/20 Allergies Allergy/AdvReac Type Severity Reaction Status Date / Time No Known Allergies Allergy Verified 02/23/21 04:32 Review of Systems ROS Statement: Those systems with pertinent positive or pertinent negative responses have been documented in the HPI. ROS Other: All systems not noted in ROS Statement are negative. Past Medical History Past Medical History: Cancer, COPD, CVA/TIA, Dementia, Hyperlipidemia, Hypertension, Osteoarthritis (OA), Renal Disease, Sleep Apnea/CPAP/BIPAP Additional Past Medical History / Comment(s): Hx breast ca x2 left breast- radiation and chemo 2003 & 2008, bi pap machine , hx of CVA with left side weakness, DJD, hospitalized for UTI & Renal failure related to dehydration. occasional incontinence-wears attends, up with assistance-gait unsteady, speech clear, feeds self- occasional cough when eating, some confusion. 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 left thumb surgery Past Anesthesia/Blood Transfusion Reactions: Unable to Obtain Additional Past Anesthesia/Blood Transfusion Reaction / Comment(s): . Past Psychological History: Depression Smoking Status: Former smoker Past Alcohol Use History: None Reported Past Drug Use History: None Reported - Past Family History Sister(s) Family Medical History: Cancer Additional Family Medical History / Comment(s): 2 sisters had breast ca, one sister had ovarian ca Daughter(s) Family Medical History: Cancer Additional Family Medical History / Comment(s): breast CA Course Vital Signs 02/23/21 02/23/21 02/23/21 04:26 05:30 06:00 Temperature 98.1 F Pulse Rate 95 89 103 H Respiratory 18 18 18 Rate Blood Pressure 168/104 171/96 154/109 O2 Sat by Pulse 93 L Oximetry 02/23/21 07:00 Temperature Pulse Rate 93 Respiratory 18 Rate Blood Pressure 170/119 O2 Sat by Pulse Oximetry Disposition Clinical Impression: Fall, Epistaxis Disposition: HOME SELF-CARE Condition: Good Instructions (If sedation given, give patient instructions): Fall Prevention for Older Adults (ED), Nosebleed (ED) Is patient prescribed a controlled substance at d/c from ED?: No Referrals: Viktor Walter DO [Primary Care Provider] - 1-2 days
[2021-02-23 07:38] VITALS: BP 129/85; PULSE 100
[2021-02-23] MEDS ORDERED: OXYMETAZOLINE 0.05% NASL SPRAY 1 SPRAY BOTTLE NASAL STA (08:10)
== END 2021-02-23 08:45 | disposition home or self-care (01) ==
LOC: EC 04:24
DX: R04.0 Epistaxis (principal); J44.9 Chronic obstructive pulmonary disease, unspecified; E78.5 Hyperlipidemia, unspecified; I10 Essential (primary) hypertension; M19.90 Unspecified osteoarthritis, unspecified site; G47.33 Obstructive sleep apnea (adult) (pediatric); Z99.81 Dependence on supplemental oxygen; Z85.3 Personal history of malignant neoplasm of breast; Z90.710 Acquired absence of both cervix and uterus; Z86.73 Personal history of transient ischemic attack (TIA), and cerebral infarction without residual deficits; Z87.891 Personal history of nicotine dependence
CPT/HCPCS: 70450; 70486; 72125; 99284

== ENCOUNTER 2021-02-23 15:43 | Inpatient (IN) | payer MEDICARE, OTHER ==
--- NOTE | 2021-02-23 16:28 | ED ---
General Adult HPI - General Chief complaint: Recheck/Abnormal Lab/Rx Stated complaint: epistaxis Time Seen by Provider: 02/23/21 16:03 Source: patient Mode of arrival: ambulatory Limitations: no limitations - History of Present Illness Initial comments: Dictation was produced using [employer] dictation software. please excuse any grammatical, word or spelling errors. Chief Complaint: 80-year-old female with epistaxis History of Present Illness: Patient is 72-year-old female she is here for epistaxis. Patient was seen here in emergency department early this morning for fall. She did have epistaxis today earlier. She was sent back with a nasal clamp. She got back to many large and had uncontrolled epistaxis. She was sent back to the emergency room. Chart review shows that patient had a fall. Patient was here earlier today where she had computed tomography scan of the head, C-spine and face CT. She did not have any nasal fractures. The ROS documented in this emergency department record has been reviewed and confirmed by me. Those systems with pertinent positive or negative responses have been documented in the HPI. All other systems are other negative and/or noncontributory. PHYSICAL EXAM: General Impression: Alert and oriented x3, not in acute distress HEENT: Ecchymoses to the forehead and periorbital area bilaterally, extra-ocular movements intact, pupils equal and reactive to light bilaterally, mucous membranes moist, large blood clot in the right anterior naris Cardiovascular: Heart regular rate and rhythm Chest: Able to complete full sentences, no retractions, no tachypnea Abdomen: abdomen soft, non-tender, non-distended, no organomegaly Musculoskeletal: Pulses present and equal in all extremities, no peripheral edema Motor: no focal deficits noted Neurological: CN II-XII grossly intact, no focal motor or sensory deficits noted Skin: Intact with no visualized rashes Psych: Normal affect and mood ED course: 72-year-old female seen here in emergency department for fall and head injury earlier today. Presents to the emergency department for epistaxis. There is large blood clot in the right naris. Signs upon arrival shows heart rate of 1:15 cumbersome vital signs within acceptable limits. Blood clot was removed from the right naris and Merocel packing was placed. Patient tolerated procedure well. Epistaxis appeared to be improved. Laboratory evaluation obtained. Hemoglobin stable. Coag panel is normal. Metabolic panel shows slight dehydration. Merocel was placed with control of bleeding. She did have some mild oozing noticeable in the posterior oropharynx. Patient not felt comfortable going home. Patient be admitted observation with consultation to ENT. Patient given Augmentin. will be admitted to [facility] hospitalist group. - Related Data Home Medications Medication Instructions Recorded Confirmed Cholecalciferol [Vitamin D3 (25 2,000 unit PO BID@0800,199903/09/17 09/04/20 Mcg = 1000 Iu)] Verapamil HCl [Calan] 120 mg PO DAILY@1200 06/16/19 09/04/20 buPROPion HCL [Wellbutrin XL] 150 mg PO DAILY@0800 06/16/19 09/04/20 Glucos Sul 2Kcl/MSM/Chond/C/Mn 1 cap PO HS@199902/12/20 09/04/20 [Glucosamine Chondroitin Cap] Multivitamins, Thera [Multivitamin 1 tab PO DAILY@0800 02/12/20 09/04/20 (formulary)] Aspirin 81 mg PO DAILY@0803/21/20 09/04/20 Clopidogrel [Plavix] 75 mg PO DAILY@0800 03/21/20 09/04/20 Fluticasone Propionate [Flovent 1 puff INHALATION RT-BID@08,199907/24/20 09/04/20 Diskus] atenoloL [Tenormin] 50 mg PO DAILY@0800 07/24/20 09/04/20 Atorvastatin [Lipitor] 20 mg PO HS 09/04/20 09/04/20 Allergies Allergy/AdvReac Type Severity Reaction Status Date / Time No Known Allergies Allergy Verified 02/23/21 15:56 Review of Systems ROS Statement: Those systems with pertinent positive or pertinent negative responses have been documented in the HPI. ROS Other: All systems not noted in ROS Statement are negative. Past Medical History Past Medical History: Cancer, COPD, CVA/TIA, Dementia, Hyperlipidemia, Hypertension, Osteoarthritis (OA), Renal Disease, Sleep Apnea/CPAP/BIPAP Additional Past Medical History / Comment(s): Hx breast ca x2 left breast- radiation and chemo 2003 & 2009, bi pap machine , hx of CVA with left side weakness, DJD, hospitalized for UTI & Renal failure related to dehydration. occasional incontinence-wears attends, up with assistance-gait unsteady, speech clear, feeds self- occasional cough when eating, some confusion. 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 left thumb surgery Past Anesthesia/Blood Transfusion Reactions: Unable to Obtain Additional Past Anesthesia/Blood Transfusion Reaction / Comment(s): . Past Psychological History: Depression Smoking Status: Former smoker Past Alcohol Use History: None Reported Past Drug Use History: None Reported - Past Family History Sister(s) Family Medical History: Cancer Additional Family Medical History / Comment(s): 2 sisters had breast ca, one sister had ovarian ca Daughter(s) Family Medical History: Cancer Additional Family Medical History / Comment(s): breast CA General Exam Limitations: no limitations Course Vital Signs 02/23/21 02/23/21 02/23/21 15:53 17:16 18:07 Temperature 98.2 F Pulse Rate 115 H 113 H 114 H Respiratory 18 18 18 Rate Blood Pressure 164/119 198/113 180/112 O2 Sat by Pulse 97 96 97 Oximetry 02/23/21 18:49 Temperature Pulse Rate 95 Respiratory 18 Rate Blood Pressure 177/118 O2 Sat by Pulse Oximetry Medical Decision Making - Lab Data Result diagrams: 02/23/21 17:07 02/23/21 17:07 Lab Results 02/23/21 02/23/21 02/23/21 Range/Units 17:07 17:07 17:07 WBC 14.0 H (3.8-10.6) k/uL RBC 4.52 (3.80-5.40) m/uL Hgb 14.4 (11.4-16.0) gm/dL Hct 40.3 (34.0-46.0) % MCV 89.1 (80.0-100.0) fL MCH 31.8 (25.0-35.0) pg MCHC 35.7 (31.0-37.0) g/dL RDW 13.0 (11.5-15.5) % Plt Count 425 (150-450) k/uL MPV 8.0 Neutrophils % 61 % Lymphocytes % 26 % Monocytes % 9 % Eosinophils % 2 % Basophils % 1 % Neutrophils # 8.5 H (1.3-7.7) k/uL Lymphocytes # 3.7 (1.0-4.8) k/uL Monocytes # 1.2 H (0-1.0) k/uL Eosinophils # 0.2 (0-0.7) k/uL Basophils # 0.1 (0-0.2) k/uL PT 10.9 (9.0-12.0) sec INR 1.0 (<1.2) APTT 23.0 (22.0-30.0) sec Sodium 138 (137-145) mmol/L Potassium 5.0 (3.5-5.1) mmol/L Chloride 104 (98-107) mmol/L Carbon Dioxide 24 (22-30) mmol/L Anion Gap 10 mmol/L BUN 39 H (7-17) mg/dL Creatinine 0.94 (0.52-1.04) mg/dL Est GFR (CKD-EPI)AfAm 67 (>60 ml/min/1.73 sqM) Est GFR (CKD-EPI)NonAf 58 (>60 ml/min/1.73 sqM) Glucose 109 H (74-99) mg/dL Calcium 10.0 (8.4-10.2) mg/dL Disposition Clinical Impression: Epistaxis Disposition: ADMITTED IP TO THIS [facility] Referrals: Viktor Walter DO [Primary Care Provider] - 1-2 days
[2021-02-23] MEDS ORDERED: TRANEXAMIC ACID 1,000 MG in SODIUM CHLORIDE 0.9% 100 ML IVPB ONE (16:49)
[2021-02-23 17:46] LABS: Basophils # (A) 0.1 k/uL (0-0.2); Basophils % (A) 1 %; Eosinophils # (A) 0.2 k/uL (0-0.7); Eosinophils % (A) 2 %; HCT 40.3 % (34.0-46.0); HGB 14.4 gm/dL (11.4-16.0); Lymphocytes # (A) 3.7 k/uL (1.0-4.8); Lymphocytes % (A) 26 %; MCH 31.8 pg (25.0-35.0); MCHC 35.7 g/dL (31.0-37.0); MCV 89.1 fL (80.0-100.0); Monocytes # (A) 1.2 k/uL (0-1.0); Monocytes % (A) 9 %; Neutrophils # (A) 8.5 k/uL (1.3-7.7); Neutrophils % (A) 61 %; Platelet Count 425 k/uL (150-450); RBC 4.52 m/uL (3.80-5.40)
[2021-02-23] MEDS ORDERED: atenoloL 50 MG TAB PO STA (17:57)
[2021-02-23 17:58] LABS: Prothrombin Time 10.9 sec (9.0-12.0)
[2021-02-23 18:43] LABS: Appearance,Urine Turbid (Clear); Bacteria,Urine Many /hpf; Bilirubin,Urine Negative (Negative); Blood,Urine Large (Negative); Budding Yeast,Urine Many /hpf; Color,Urine Yellow; Glucose,Urine (UA) Negative (Negative); Ketones,Urine Negative (Negative); Leukocyte Esterase,Urine Large (Negative); Mucus,Urine Rare /hpf; Nitrite,Urine Negative (Negative); Protein,Urine Trace (Negative); RBC,Urine 29 /hpf (0-5); Urobilinogen,Urine <2.0 mg/dL (<2.0); WBC,Urine 54 /hpf (0-5)
[2021-02-23] MEDS ORDERED: NALOXONE 0.4 MG/ML 1 ML VIAL IV PRN (18:57)
[2021-02-23] MEDS ORDERED: LABETALOL 5 MG/ML VIAL MDV IVP PRN (19:40)
[2021-02-23] MEDS: AMOXIC-POT CLAV 875-125MG 1 EACH TAB PO SCH (22:30)
[2021-02-24] MEDS: VERAPAMIL SR 120 MG TABLET.ER PO SCH ×2 (01:19→21:52)
[2021-02-24 06:23] LABS: Basophils # (A) 0.1 k/uL (0-0.2); Basophils % (A) 0 %; Eosinophils # (A) 0.1 k/uL (0-0.7); Eosinophils % (A) 1 %; HCT 36.7 % (34.0-46.0); HGB 12.8 gm/dL (11.4-16.0); Lymphocytes # (A) 3.6 k/uL (1.0-4.8); Lymphocytes % (A) 22 %; MCH 31.1 pg (25.0-35.0); MCV 88.9 fL (80.0-100.0); Mean Platelet Volume 7.8; Monocytes # (A) 1.2 k/uL (0-1.0); Monocytes % (A) 7 %; Neutrophils # (A) 10.8 k/uL (1.3-7.7); Neutrophils % (A) 67 %; Platelet Count 393 k/uL (150-450); RBC 4.12 m/uL (3.80-5.40); RDW 13.1 % (11.5-15.5)
[2021-02-24 06:30] LABS: INR 1.1 (<1.2); Prothrombin Time 11.2 sec (9.0-12.0)
[2021-02-24 06:38] LABS: African American GFR (CKD) 66 (>60 ml/min/1.73 sqM); Anion Gap 9 mmol/L; Blood Urea Nitrogen 59 mg/dL (7-17); Calcium 10.2 mg/dL (8.4-10.2); Carbon Dioxide 24 mmol/L (22-30); Chloride 108 mmol/L (98-107); Glucose 135 mg/dL (74-99); Non-African American GFR(CKD) 57 (>60 ml/min/1.73 sqM); Potassium 4.1 mmol/L (3.5-5.1); Sodium 141 mmol/L (137-145)
--- NOTE | 2021-02-24 06:51 | CT ---
EXAMINATION TYPE: CT brain wo con DATE OF EXAM: 02/24/2021 COMPARISON: Yesterday HISTORY: Fall yesterday, uncontrollable nose bleed CT DLP: 1271.1 mGycm Automated exposure control for dose reduction was used. Images of the brain obtained without contrast. There is midline frontal large scalp hematoma unchanged. There is hypodensity in the periventricular white matter. There is no mass effect nor midline shift. There is no sign of intracranial hemorrhage. Calvarium is intact. There is some mucosal thickening ethmoid air cells. There is fluid level in the right side sphenoid sinus. There is increased density in the anterior right side nasopharynx. This i s consistent with blood clot and debris. There is mucosal thickening right maxillary sinus. IMPRESSION: Cerebral atrophy and extensive chronic small vessel ischemia. Unchanged. Frontal scalp hematoma unchanged. Increased density in the nasopharynx consistent with blood clot and debris that is increased compared to yesterday. There is new fluid level right maxillary sinus also consistent with hemorrhage.
[2021-02-24] MEDS: AMOXIC-POT CLAV 875-125MG 1 EACH TAB PO SCH (08:07)
[2021-02-24] MEDS: buPROPion XL 150 MG TAB.ER.24H PO SCH (08:07)
[2021-02-24] MEDS: FLUTICASONE 44 MCG INHALER INHALATION SCH ×2 (08:13→19:10)
[2021-02-24] MEDS ORDERED: atenoloL 50 MG TAB PO SCH (09:00)
--- NOTE | 2021-02-24 09:00 | P.CRDCN ---
History of Present Illness Consult date: 02/24/21 Chief complaint: Nosebleed History of present illness: This is a 80-year-old female patient with a past medical history significant for hypertension and dyslipidemia who [facility] was brought to the hospital after she [facility]. The patient somewhat is a poor historian. She did not lose her consciousness. He she has severe/extensive bruises on the right face after she fell. Also she developed nosebleed. We consulted to see the patient for abnormal EKG showing atrial flutter with variable block. This is a newly diagnosis the patient she has history of stroke and she was receiving Plavix which was stopped when she came in to the hospital. No indication that the patient has any symptoms of ch est pain or chest discomfort or shortness of breath and no presyncope or syncope and no feeling of heart racing or fluttering. She continues to be slightly tachycardic with heart rate of 100 and also elevated blood pressure. Past Medical History Past Medical History: Cancer, COPD, CVA/TIA, Dementia, Hyperlipidemia, Hypertension, Osteoarthritis (OA), Renal Disease, Sleep Apnea/CPAP/BIPAP Additional Past Medical History / Comment(s): Hx breast ca x2 left breast- radiation and chemo 2003 & 2009, bi pap machine , hx of CVA with left side weakness, DJD, hospitalized for UTI & Renal failure related to dehydration. occasional incontinence-wears attends, up with assistance-gait unsteady, speech clear, feeds self- occasional cough when eating, some confusion. 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 left thumb surgery Past Anesthesia/Blood Transfusion Reactions: Unable to Obtain Additional Past Anesthesia/Blood Transfusion Reaction / Comment(s): . Past Psychological History: Depression Smoking Status: Former smoker Past Alcohol Use History: None Reported Additional Past Alcohol Use History / Comment(s): smoked 1ppd from age 17 Past Drug Use History: None Reported - Past Family History Sister(s) Family Medical History: Cancer Additional Family Medical History / Comment(s): 2 sisters had breast ca, one sister had ovarian ca Daughter(s) Family Medical History: Cancer Additional Family Medical History / Comment(s): breast CA Medications and Allergies Home Medications Medication Instructions Recorded Confirmed Type Cholecalciferol [Vitamin D3 (25 50 mcg PO BID 03/09/17 02/23/21 History Mcg = 1000 Iu)] Verapamil HCl [Calan] 120 mg PO HS 06/16/19 02/23/21 History buPROPion HCL [Wellbutrin XL] 150 mg PO DAILY 06/16/19 02/23/21 History Glucos Sul 2Kcl/MSM/Chond/C/Mn 1 cap PO HS 02/12/20 02/23/21 History [Glucosamine Chondroitin Cap] Multivitamins, Thera [Multivitamin 1 tab PO DAILY 02/12/20 02/23/21 History (formulary)] Aspirin 81 mg PO DAILY 03/21/20 02/23/21 History Clopidogrel [Plavix] 75 mg PO DAILY 03/21/20 02/23/21 History Fluticasone Propionate [Flovent 1 puff INHALATION RT-BID 07/24/20 02/23/21 History Diskus] atenoloL [Tenormin] 50 mg PO DAILY 07/24/20 02/23/21 History Atorvastatin [Lipitor] 20 mg PO HS 02/23/21 02/23/21 History Melatonin 5 mg PO HS 02/23/21 02/23/21 History Allergies Allergy/AdvReac Type Severity Reaction Status Date / Time No Known Allergies Allergy Verified 02/23/21 19:10 Physical Exam Vitals: Vital Signs Temp Pulse Pulse Resp BP BP Pulse Ox 02/24/21 07:00 97.8 F 125 H 20 165/115 97 02/24/21 02:09 114 H 02/24/21 00:58 98.2 F 119 H 18 147/101 96 02/23/21 20:04 96.9 F L 114 H 18 156/100 98 02/23/21 19:23 135/74 02/23/21 18:49 95 18 177/118 02/23/21 18:07 114 H 18 180/112 97 02/23/21 17:16 113 H 18 198/113 96 02/23/21 15:53 98.2 F 115 H 18 164/119 97 Intake and Output 02/23/21 02/24/2121 22:59 06:59 14:59 Intake Total 290 Balance 290 Intake: Intake, IV Titration 100 Amount Tranexamic Acid 1,000 mg 100 In Sodium Chloride 0.9% 100 ml @ 200 mls/hr IVPB ONCE ONE Rx#:[id number] Oral 90 Other 100 Other: Voiding Method Diaper Diaper External Catheter # Voids 1 # Bowel Movements 2 Weight 77.111 kg - Constitutional General appearance: no acute distress - Respiratory Respiratory: bilateral: diminished - Cardiovascular Rhythm: irregularly irregular Heart sounds: normal: S1, S2 Results 02/24/21 05:46 02/24/21 05:46 Coagulation 02/23/21 02/24/21 Range/Units 17:07 05:46 PT 10.9 11.2 (9.0-12.0) sec APTT 23.0 (22.0-30.0) sec CBC 02/23/21 02/24/21 Range/Units 17:07 05:46 WBC 14.0 H 16.0 H (3.8-10.6) k/uL RBC 4.52 4.12 (3.80-5.40) m/uL Hgb 14.4 12.8 (11.4-16.0) gm/dL Hct 40.3 36.7 (34.0-46.0) % Plt Count 425 393 (150-450) k/uL Comprehensive Metabolic Panel 02/23/21 02/24/21 Range/Units 17:07 05:46 Sodium 138 141 (137-145) mmol/L Potassium 5.0 4.1 (3.5-5.1) mmol/L Chloride 104 108 H (98-107) mmol/L Carbon Dioxide 24 24 (22-30) mmol/L BUN 39 H 59 H (7-17) mg/dL Creatinine 0.94 0.96 (0.52-1.04) mg/dL Glucose 109 H 135 H (74-99) mg/dL Calcium 10.0 10.2 (8.4-10.2) mg/dL Current Medications Generic Name Dose Route Start Last Admin Trade Name Freq PRN Reason Stop Dose Admin Amoxicillin/Clavulanate Potassium 1 each 02/23/21 21:00 02/24/21 08:07 Amoxic-Pot Clav 875-125mg 1 Each Tab PO 1 each BID CABRERA Administration Apixaban 2.5 mg 02/24/21 09:00 Apixaban 5 Mg Tab PO BID [facility] Protocol Atenolol 100 mg 02/24/21 09:00 Atenolol 50 Mg Tab PO DAILY CABRERA Atorvastatin Calcium 20 mg 02/24/21 21:00 Atorvastatin 20 Mg Tab PO HS CABRERA Bupropion HCl 150 mg 02/24/21 09:00 02/24/21 08:07 Bupropion Xl 150 Mg Tab.Er.24h PO 150 mg DAILY CABRERA Administration Fluticasone Propionate 1 puff 02/24/21 08:00 02/24/21 08:13 Fluticasone 44 Mcg Inhaler INHALATION 1 puff RT-BID CABRERA Administration Labetalol HCl 10 mg 02/23/21 19:40 Labetalol 5 Mg/Ml Vial Mdv IVP Q4H PRN SBP>180 Melatonin 5 mg 02/24/21 21:00 Melatonin 5 Mg Tablet PO HS CABRERA Naloxone HCl 0.2 mg 02/23/21 18:57 Naloxone 0.4 Mg/Ml 1 Ml Vial IV Q2M PRN Opioid Reversal Verapamil HCl 120 mg 02/24/21 01:30 02/24/21 01:19 Verapamil Sr 120 Mg Tablet.Er PO 120 mg HS CABRERA Administration Intake and Output 02/23/21 02/24/21 02/24/21 22:59 06:59 14:59 Intake Total 290 Balance 290 Intake: Intake, IV Titration 100 Amount Tranexamic Acid 1,000 mg 100 In Sodium Chloride 0.9% 100 ml @ 200 mls/hr IVPB ONCE ONE Rx#:[id number] Oral 90 Other 100 Other: Voiding Method Diaper Diaper External Catheter # Voids 1 # Bowel Movements 2 Weight 77.111 kg 02/24/21 05:46 02/24/21 05:46 Assessment and Plan Assessment: Assessment #1 status post fall without losing consciousness #2 nosebleed #3 atrial flutter, typical, this is a The patient #4 history of stroke Plan #1 increase the dose of atenolol for better heart rate control #2 DC Plavix #3 start the patient on oral anticoagulation so. With the ENT team #4 obtain an echocardiogram was Doppler #5 monitor the patient for arrhythmia #6 follow-up with the patient
[2021-02-24] MEDS ORDERED: atenoloL 50 MG TAB PO STA (09:09)
[2021-02-24] MEDS: atenoloL 50 MG TAB PO SCH (09:09)
[2021-02-24] MEDS: APIXABAN 2.5 MG TABLET PO SCH ×2 (09:58→21:50)
[2021-02-24] MEDS: FAMOTIDINE 20 MG TAB PO SCH ×2 (14:22→21:50)
[2021-02-24] MEDS: ATORVASTATIN 20 MG TAB PO SCH (21:50)
[2021-02-24] MEDS: MELATONIN 5 MG TABLET PO SCH (21:50)
[2021-02-24 22:29] LABS: Glucose,Whole Blood 185 mg/dL (75-99)
[2021-02-24 22:41] LABS: Basophils # (A) 0.1 k/uL (0-0.2); Basophils % (A) 1 %; Eosinophils # (A) 0.1 k/uL (0-0.7); Eosinophils % (A) 0 %; HCT 35.7 % (34.0-46.0); HGB 12.6 gm/dL (11.4-16.0); Lymphocytes # (A) 3.7 k/uL (1.0-4.8); Lymphocytes % (A) 18 %; MCH 31.4 pg (25.0-35.0); MCHC 35.2 g/dL (31.0-37.0); MCV 89.2 fL (80.0-100.0); Mean Platelet Volume 8.2; Monocytes # (A) 1.4 k/uL (0-1.0); Monocytes % (A) 7 %; Neutrophils % (A) 73 %; Platelet Count 367 k/uL (150-450); RBC 4.01 m/uL (3.80-5.40); RDW 13.3 % (11.5-15.5); WBC 20.6 k/uL (3.8-10.6)
[2021-02-24] MEDS ORDERED: DILTIAZEM ORAL 30 MG TAB PO STA (23:37)
--- NOTE | 2021-02-25 00:11 | P.HPIM ---
History of Present Illness H&P Date: 02/24/21 Chief Complaint: Fall Patient is a 80-year-old female with a known history of CVA with left-sided weakness, dementia, hypertension, hyperlipidemia, COPD, obstructive sleep apnea and history of breast cancer status post chemo and radiation, depression and previous history of smoking who [facility] was brought to the hospital status post fall. Patient did have extensive bruising on the face and around the eyes. She also developed nosebleed. She did have nose back and was [facility] to [facility]. Patient was brought back to the hospital due to fall. Patient otherwise denied any loss of consciousness. Somewhat poor historian. Denied any complaints of chest pain or worsening shortness of breath. No fever no chills. Denies any palpitations. EKG showed atrial flutter with variable block. Laboratory data showed WBC 16.0 hemoglobin 12.8 and platelets 393 Sodium 141 potassium 4.1 chloride 108 BUN 59 and creatinine 0.96 blood sugar 135 and calcium 10.2 urinalysis showed turbid with large blood and large leukocyte esterase with elevated RBCs and WBCs. FOBT positive. Facial CT showed blood clot and debris's in the anterior nasopharynx. Large frontal scalp hematoma. No fracture seen. CT head brain repeat showed cerebral atrophy and extensive chronic small vessel ischemia. Frontal scalp hematoma unchanged. Increased density in the nasopharynx consistent with blood clot and debris since that is increasing compared to yesterday. There is new fluid level right maxillary sinus also consistent with hemorrhage. Patient is on Plavix due to history of CVA. Review of Systems Constitutional: Patient denies any fever or chills . No generalized weakness or weight loss. Abdomen: Patient denied nausea vomiting and diarrhea and abdominal pain. Cardiovascular: Patient denies any chest pain or short of breath no palpitations. Respiratory: patient denied any cough or sputum production. No shortness of breath Neurologic: Patient denied any numbness or tingling headache. Musculoskeletal: Patient denies any complaints of joint swelling or deformity. Skin: Negative Psychiatric: Negative Endocrine: No heat or cold intolerance. No recent weight gain. Genitourinary: No dysuria or hematuria. All other 14 point ROS negative except the above Past Medical History Past Medical History: Cancer, COPD, CVA/TIA, Dementia, Hyperlipidemia, Hypertension, Osteoarthritis (OA), Renal Disease, Sleep Apnea/CPAP/BIPAP Additional Past Medical History / Comment(s): Hx breast ca x2 left breast- radiation and chemo 2003 & 2009, bi pap machine , hx of CVA with left side weakness, DJD, hospitalized for UTI & Renal failure related to dehydration. occasional incontinence-wears attends, up with assistance-gait unsteady, speech clear, feeds self- occasional cough when eating, some confusion. 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 left thumb surgery Past Anesthesia/Blood Transfusion Reactions: Unable to Obtain Additional Past Anesthesia/Blood Transfusion Reaction / Comment(s): . Past Psychological History: Depression Smoking Status: Former smoker Past Alcohol Use History: None Reported Additional Past Alcohol Use History / Comment(s): smoked 1ppd from age 17 Past Drug Use History: None Reported - Past Family History Sister(s) Family Medical History: Cancer Additional Family Medical History / Comment(s): 2 sisters had breast ca, one sister had ovarian ca Daughter(s) Family Medical History: Cancer Additional Family Medical History / Comment(s): breast CA Medications and Allergies Home Medications Medication Instructions Recorded Confirmed Type Cholecalciferol [Vitamin D3 (25 50 mcg PO BID 03/09/17 02/23/21 History Mcg = 1000 Iu)] Verapamil HCl [Calan] 120 mg PO HS 06/16/19 02/23/21 History buPROPion HCL [Wellbutrin XL] 150 mg PO DAILY 06/16/19 02/23/21 History Glucos Sul 2Kcl/MSM/Chond/C/Mn 1 cap PO HS 02/12/20 02/23/21 History [Glucosamine Chondroitin Cap] Multivitamins, Thera [Multivitamin 1 tab PO DAILY 02/12/20 02/23/21 History (formulary)] Aspirin 81 mg PO DAILY 03/21/20 02/23/21 History Clopidogrel [Plavix] 75 mg PO DAILY 03/21/20 02/23/21 History Fluticasone Propionate [Flovent 1 puff INHALATION RT-BID 07/24/20 02/23/21 History Diskus] atenoloL [Tenormin] 50 mg PO DAILY 07/24/20 02/23/21 History Atorvastatin [Lipitor] 20 mg PO HS 02/23/21 02/23/21 History Melatonin 5 mg PO HS 02/23/21 02/23/21 History Allergies Allergy/AdvReac Type Severity Reaction Status Date / Time No Known Allergies Allergy Verified 02/23/21 19:10 Physical Exam Vitals: Vital Signs Temp Pulse Pulse Resp BP BP Pulse Ox 02/24/21 07:00 97.8 F 125 H 20 165/115 97 02/24/21 02:09 114 H 02/24/21 00:58 98.2 F 119 H 18 147/101 96 02/23/21 20:04 96.9 F L 114 H 18 156/100 98 02/23/21 19:23 135/74 02/23/21 18:49 95 18 177/118 02/23/21 18:07 114 H 18 180/112 97 02/23/21 17:16 113 H 18 198/113 96 02/23/21 15:53 98.2 F 115 H 18 164/119 97 Intake and Output 02/23/21 02/24/21 02/24/21 22:59 06:59 14:59 Intake Total 290 Balance 290 Intake: Intake, IV Titration 100 Amount Tranexamic Acid 1,000 mg 100 In Sodium Chloride 0.9% 100 ml @ 200 mls/hr IVPB ONCE ONE Rx#:[id number] Oral 90 Other 100 Other: Voiding Method Diaper Diaper External Catheter # Voids 1 # Bowel Movements 2 2 Weight 77.111 kg PHYSICAL EXAMINATION: Patient is lying in the bed comfortably, no acute distress, awake alert and oriented.. HEENT: Normocephalic. Neck is supple. Pupils reactive. Nostrils packed. frontal swelling and bruising around eyes.Oral cavity is moist. Neck reveals no JVD, carotid bruits, or thyromegaly. CHEST EXAMINATION: Trachea is central. Symmetrical expansion. Lung lance clear to auscultation and percussion. CARDIAC: Normal S1, S2 with no gallops. No murmurs , tachycardic ABDOMEN: Soft. Bowel sounds normal. No organomegaly. No abdominal bruits. Extremities: trace edema. No clubbing or cyanosis Neurologically awake, alert, oriented x3 . left sided weakness Skin: No rash or skin lesions. Psychiatric: Coperative. Nonsuicidal Musculoskeletal: No joint swelling or deformity. Results CBC & Chem 7: 02/24/21 22:22 02/24/21 05:46 Labs: Abnormal Lab Results - Last 24 Hours (Table) 02/23/21 02/23/21 02/23/21 Range/Units 17:07 17:07 18:04 WBC 14.0 H (3.8-10.6) k/uL Neutrophils # 8.5 H (1.3-7.7) k/uL Monocytes # 1.2 H (0-1.0) k/uL Chloride (98-107) mmol/L BUN 39 H (7-17) mg/dL Glucose 109 H (74-99) mg/dL Urine Appearance Turbid H (Clear) Urine Protein Trace H (Negative) Urine Blood Large H (Negative) Ur Leukocyte Esterase Large H (Negative) Urine RBC 29 H (0-5) /hpf Urine WBC 54 H (0-5) /hpf Urine Bacteria Many H (None) /hpf Urine Mucus Rare H (None) /hpf Urine Yeast (Budding) Many H (None) /hpf Stool Occult Blood (Negative) 02/24/21 02/24/21 02/24/21 Range/Units 04:10 05:46 05:46 WBC 16.0 H (3.8-10.6) k/uL Neutrophils # 10.8 H (1.3-7.7) k/uL Monocytes # 1.2 H (0-1.0) k/uL Chloride 108 H (98-107) mmol/L BUN 59 H (7-17) mg/dL Glucose 135 H (74-99) mg/dL Urine Appearance (Clear) Urine Protein (Negative) Urine Blood (Negative) Ur Leukocyte Esterase (Negative) Urine RBC (0-5) /hpf Urine WBC (0-5) /hpf Urine Bacteria (None) /hpf Urine Mucus (None) /hpf Urine Yeast (Budding) (None) /hpf Stool Occult Blood Positive H (Negative) Microbiology - Last 24 Hours (Table) 02/23/21 18:04 Urine Culture - Preliminary Urine,Clean Catch Thrombosis Risk Factor Assmnt - DVT/VTE Prophylaxis DVT/VTE Prophylaxis: Pharmacologic Prophylaxis ordered Assessment and Plan Assessment: Status post fall with frontal hematoma. No LOC Nosebleed status post nasal packing Atrial flutter with variable block. Still tachycardic. Acute urinary tract infection History of CVA with left-sided weakness Hypertension Hyperlipidemia Obstructive sleep apnea COPD Prior history of smoking History of breast cancer x2 left breast status post radiation and chemo Degenerative joint disease Depression DVT prophylaxis patient is already full anticoagulation. Plan: Patient will continue on telemetry monitoring. Patient is status post nose packing ENT is on board. Monitor H&H. Patient was seen by cardiology and recommended to start on full anticoagulation with Eliquis at 2.5 mg twice daily. Monitor for any bleeding signs. Continue with verapamil and atenolol dose increased to 100 mg daily. Follow-up CBC and BMP tomorrow. TSH level. Continue with ceftriaxone and follow-up with final urine culture report. Prognosis guarded with multiple medical problems and comorbid conditions. Time with Patient: Greater than 30
[2021-02-25] MEDS: FLUTICASONE 44 MCG INHALER INHALATION SCH ×2 (07:57→19:46)
[2021-02-25] MEDS: FAMOTIDINE 20 MG TAB PO SCH (08:40)
[2021-02-25] MEDS: buPROPion XL 150 MG TAB.ER.24H PO SCH (08:40)
[2021-02-25] MEDS: APIXABAN 2.5 MG TABLET PO SCH ×2 (08:40→20:17)
[2021-02-25] MEDS: atenoloL 50 MG TAB PO SCH (08:40)
--- NOTE | 2021-02-25 09:49 | ECHOF ---
Referral Reason:arrhythmia MEASUREMENTS -------- HEIGHT: 170.2 cm WEIGHT: 77.1 kg BP: 165/115 IVSd: 1.5 cm (0.6 - 1.1) LVIDd: 3.1 cm (3.9 - 5.3) LVPWd: 1.6 cm (0.6 - 1.1) IVSs: 1.5 cm LVIDs: 2.3 cm LVPWs: 2.3 cm RAP: 5.00 mmHg RVSP: 34.65 mmHg FINDINGS -------- Resting tachycardia (HR>100bpm). This was a technically difficult study with suboptimal views. The left ventricular size is normal. There is moderate concentric left ventricular hypertrophy. O verall left ventricular systolic function is low-normal with, an EF between 50 - 55 %. The RV was not well visualized. Normal LA size by volume 22+/-6 ml/m2. The right atrium was not well visualized. 5.0mg of Lumason was utilized for enhancement of images The aortic valve was not well visualized. There is no evidence of aortic regurgitation. There is no evidence of aortic stenosis. The mitral valve was not well visualized. Mild tricuspid regurgitation present. There is borderline pulmonary artery hypertension. The righ t ventricular systolic pressure, as measured by Doppler, is 34.65mmHg. The pulmonic valve was not well visualized. IVC Not well visulized. There is no pericardial effusion. CONCLUSIONS -------- 1. This was a technically difficult study with suboptimal views. 2. The left ventricular size is normal. 3. There is moderate concentric left ventricular hypertrophy. 4. Overall left ventricular systolic function is low-normal with, an EF between 50 - 55 %. 5. Mild tricuspid regurgitation present. 6. There is borderline pulmonary artery hypertension. 7. The right ventricular systolic pressure, as measured by Doppler, is 34.65mmHg. [employer]: Angle Matos, MARCI
[2021-02-25 10:31] LABS: HCT 35.1 % (37.2-46.3); HGB 12.1 g/dL (12.0-15.0); MCH 31.4 pg (27.0-32.0); MCHC 34.5 g/dL (32.0-37.0); MCV 91.2 fL (80.0-97.0); Mean Platelet Volume 10.3 fL (9.5-12.2); Platelet Count 402 X 10*3/uL (140-440); RBC 3.85 X 10*6/uL (4.10-5.20); RDW 13.3 % (11.5-14.5); WBC 28.26 X 10*3/uL (4.50-10.00)
[2021-02-25 10:35] LABS: African American GFR (CKD) 45.5 (60.0-200.0); BUN/Creat Ratio 43.08 Ratio (12.00-20.00); Calcium 10.1 mg/dL (8.7-10.3); Non-African American GFR(CKD) 39.3 (60.0-200.0); Potassium 4.2 mmol/L (3.5-5.5)
--- NOTE | 2021-02-25 10:58 | P.PN ---
Subjective Progress Note Date: 02/25/21 HISTORY OF PRESENT ILLNESS: This is a 80-year-old female patient with a past medical history significant for hypertension and dyslipidemia who was a [facility] was brought to the hospital after she [facility] at the [facility]. The patient somewhat is a poor historian. She did not lose her consciousness. He she has severe/extensive bruises on the right face after she fell. Also she developed nosebleed. We consulted to see the patient for abnormal EKG showing atrial flutter with variable block. This is a newly diagnosis the patient she has history of stroke and she was receiving Plavix which was stopped when she came in to the hospital. No indication that the patient has any symptoms of chest pain or chest discomfort or shortness of breath and no presyncope or syncope and no feeling of heart racing or fluttering. She continues to be slightly tachycardic with heart rate of 100 and also elevated blood pressure. 02/25/2021 Patient examined this morning at the bedside. Patient is resting comfortably in bed. She has nasal packing present. She remains in atrial fibrillation. Eliquis was started yesterday. Patient was RVR overnight and she was given cardizem per internal medicine. Echocardiogram completed revealed ejection fraction 50-55% and mild tricuspid regurgitation. PHYSICAL EXAM: VITAL SIGNS: Reviewed. GENERAL: Well-developed in no acute distress. Nasal packing noted. NECK: Supple. No JVD or thyromegaly LUNGS: Respirations even and unlabored. Lungs essentially clear to auscultation bilaterally. HEART: Irregular rate and rhythm. S1 and S2 heard. EXTREMITIES: Normal range of motion. No clubbing or cyanosis. Peripheral pulses intact. No lower extremity edema ASSESSMENT: Status post fall without LOC Nosebleed New onset persistent typical atrial flutter/fibrillation History of CVA PLAN: Continue current cardiac medications Continue telemetry monitoring Further recommendations pending patient course Nurse practitioner note has been reviewed by physician. Signing provider agrees with the documented findings, assessment, and plan of care. Objective - Vital Signs Vital signs: Vital Signs Temp 98.1 F 02/25/21 07:00 Pulse 81 02/25/21 07:00 Resp 17 02/25/21 08:00 BP 128/93 02/25/21 07:00 Pulse Ox 98 02/25/21 07:00 Intake & Output 02/24/21 02/25/21 02/25/21 18:59 06:59 18:59 Output Total 200 Balance -200 Output: Urine 200 Other: Voiding Method Diaper Diaper Diaper # Voids 1 # Bowel Movements 2 1 - Labs CBC & Chem 7: 02/25/21 06:16 02/25/21 06:16 Labs: Abnormal Lab Results - Last 24 Hours (Table) 02/24/21 02/24/21 02/24/21 Range/Units 22:06 22:19 22:22 WBC 20.6 H (3.8-10.6) k/uL RBC (4.10-5.20) X 10*6/uL Hct (37.2-46.3) % Neutrophils # 15.0 H (1.3-7.7) k/uL Monocytes # 1.4 H (0-1.0) k/uL BUN (9.0-27.0) mg/dL Est GFR (CKD-EPI)AfAm (60.0-200.0) Est GFR (CKD-EPI)NonAf (60.0-200.0) BUN/Creatinine Ratio (12.00-20.00) Ratio Glucose (70-110) mg/dL POC Glucose (mg/dL) 185 H (75-99) mg/dL Stool Occult Blood Positive H (Negative) 02/25/21 02/25/21 Range/Units 06:16 06:16 WBC 28.26 H (3.8-10.6) k/uL RBC 3.85 L (4.10-5.20) X 10*6/uL Hct 35.1 L (37.2-46.3) % Neutrophils # (1.3-7.7) k/uL Monocytes # (0-1.0) k/uL BUN 56.0 H (9.0-27.0) mg/dL Est GFR (CKD-EPI)AfAm 45.5 L (60.0-200.0) Est GFR (CKD-EPI)NonAf 39.3 L (60.0-200.0) BUN/Creatinine Ratio 43.08 H (12.00-20.00) Ratio Glucose 161 H (70-110) mg/dL POC Glucose (mg/dL) (75-99) mg/dL Stool Occult Blood (Negative) Microbiology - Last 24 Hours (Table) 02/24/21 05:46 Blood Culture - Preliminary Blood No Growth after 24 hours 02/23/21 18:04 Urine Culture - Preliminary Urine,Clean Catch Gram Neg Bacilli
[2021-02-25 11:01] LABS: Basophils # (A) 0.07 X 10*3/uL (0.00-0.10); Basophils % (A) 0.2 %; Eosinophils # (A) 0 X 10*3/uL (0.04-0.35); Eosinophils % (A) 0 %; Lymphocytes # (A) 2.23 X 10*3/uL (0.90-5.00); Lymphocytes % (A) 7.9 %; Monocytes # (A) 1.73 X 10*3/uL (0.20-1.00); Monocytes % (A) 6.1 %; Neutrophils # (A) 24.04 X 10*3/uL (1.80-7.70); Neutrophils % (A) 85.1 %
--- NOTE | 2021-02-25 15:51 | P.PN ---
Subjective Progress Note Date: 02/25/21 Patient is a 80-year-old female with a known history of CVA with left-sided weakness, dementia, hypertension, hyperlipidemia, COPD, obstructive sleep apnea and history of breast cancer status post chemo and radiation, depression and previous history of smoking who [facility] was brought to the hospital status post fall. Patient did have extensive bruising on the face and around the eyes. She also developed nosebleed. She did have nose back and was [facility] to [facility]. Patient was brought back to the hospital due to fall. Patient otherwise denied any loss of consciousness. Somewhat poor historian. Denied any complaints of chest pain or worsening shortness of b reath. No fever no chills. Denies any palpitations. EKG showed atrial flutter with variable block. Laboratory data showed WBC 16.0 hemoglobin 12.8 and platelets 393 Sodium 141 potassium 4.1 chloride 108 BUN 59 and creatinine 0.96 blood sugar 135 and calcium 10.2 urinalysis showed turbid with large blood and large leukocyte esterase with elevated RBCs and WBCs. FOBT positive. Facial CT showed blood clot and debris's in the anterior nasopharynx. Large frontal scalp hematoma. No fracture seen. CT head brain repeat showed cerebral atrophy and extensive chronic small vessel ischemia. Frontal scalp hematoma unchanged. Increased density in the nasopharynx consistent with blood clot and debris since that is increasing compared to yesterday. There is new fluid level right maxillary sinus also consistent with hemorrhage. Patient is on Plavix due to history of CVA. 02/25/2021 Patient is seen in follow-up this morning with no new bleeding noted status post starting low-dose anticoagulation. Nasal packing in the right nare has dried blood noted with no new changes. Awaiting ENT consult. Patient was having some issues with swallowing breakfast this morning and had bedside swallow done with speech and patient was having signs of possible aspiration and downgraded to dysphasia 1 pured diet with nectar thick liquids. White blood count is elevated at 28.26, hemoglobin is stable at 12.1, sodium is 142 with a potassium of 4.2 and current BUN is 56 with a creatinine of 1.3. Urine culture preliminary showing gram-negative bacilli and patient is maintained on IV ceftriaxone and will continue. Awaiting for cultures to finalized. Cardiology is following. Patient denies any chest pain or shortness of breath. Patient is afebrile. Patient maintained on a face tent of 7-8 L with an FiO2 of 35%. Objective - Vital Signs Vital signs: Vital Signs Temp 98.1 F 02/25/21 07:00 Pulse 81 02/25/21 07:00 Resp 17 02/25/21 08:00 BP 128/93 02/25/21 07:00 Pulse Ox 98 02/25/21 07:00 Intake & Output 02/24/21 02/25/21 02/25/21 18:59 06:59 18:59 Output Total 200 Balance -200 Output: Urine 200 Other: Voiding Method Diaper Diaper Diaper # Voids 1 # Bowel Movements 2 1 - Exam Patient is sitting up in the bed comfortably, no acute distress, awake alert and oriented.. HEENT: Normocephalic. Neck is supple. Pupils reactive. Right Nostril packed. frontal swelling and bruising around eyes.Oral cavity is moist. Neck reveals no JVD, carotid bruits, or thyromegaly. CHEST EXAMINATION: Trachea is central. Symmetrical expansion. Lung lance clear to auscultation and percussion. CARDIAC: Normal S1, S2 with no gallops. No murmurs , tachycardic ABDOMEN: Soft. Bowel sounds normal. No organomegaly. No abdominal bruits. Extremities: trace edema. No clubbing or cyanosis Neurologically awake, alert, oriented x3 . left sided weakness Skin: No rash or skin lesions. Psychiatric: Cooperative. Non-suicidal Musculoskeletal: No joint swelling or deformity. - Labs CBC & Chem 7: 02/25/21 06:16 02/25/21 06:16 Labs: Abnormal Lab Results - Last 24 Hours (Table) 02/24/21 02/24/21 02/24/21 Range/Units 22:06 22:19 22:22 WBC 20.6 H (3.8-10.6) k/uL RBC (4.10-5.20) X 10*6/uL Hct (37.2-46.3) % Neutrophils # 15.0 H (1.3-7.7) k/uL Monocytes # 1.4 H (0-1.0) k/uL BUN (9.0-27.0) mg/dL Est GFR (CKD-EPI)AfAm (60.0-200.0) Est GFR (CKD-EPI)NonAf (60.0-200.0) BUN/Creatinine Ratio (12.00-20.00) Ratio Glucose (70-110) mg/dL POC Glucose (mg/dL) 185 H (75-99) mg/dL Stool Occult Blood Positive H (Negative) 02/25/21 02/25/21 Range/Units 06:16 06:16 WBC 28.26 H (3.8-10.6) k/uL RBC 3.85 L (4.10-5.20) X 10*6/uL Hct 35.1 L (37.2-46.3) % Neutrophils # (1.3-7.7) k/uL Monocytes # (0-1.0) k/uL BUN 56.0 H (9.0-27.0) mg/dL Est GFR (CKD-EPI)AfAm 45.5 L (60.0-200.0) Est GFR (CKD-EPI)NonAf 39.3 L (60.0-200.0) BUN/Creatinine Ratio 43.08 H (12.00-20.00) Ratio Glucose 161 H (70-110) mg/dL POC Glucose (mg/dL) (75-99) mg/dL Stool Occult Blood (Negative) Microbiology - Last 24 Hours (Table) 02/24/21 05:46 Blood Culture - Preliminary Blood No Growth after 24 hours 02/23/21 18:04 Urine Culture - Preliminary Urine,Clean Catch Gram Neg Bacilli Assessment and Plan Assessment: Status post fall with frontal hematoma. No LOC Nosebleed status post nasal packing Atrial flutter with variable block. Still tachycardic. Acute urinary tract infection History of CVA with left-sided weakness Hypertension Hyperlipidemia Obstructive sleep apnea COPD Prior history of smoking History of breast cancer x2 left breast status post radiation and chemo Degenerative joint disease Depression DVT prophylaxis eliquis No code. Plan: Patient will continue on telemetry monitoring. Patient is status post nose packing. No new bleeding noted and ENT is consulted and pending at this time. Monitor H&H. Hemoglobin this morning is stable at 12.1. Patient was seen by cardiology and recommended to start on full anticoagulation with Eliquis at 2.5 mg twice daily. Monitor for any bleeding signs. Continue with verapamil and atenolol dose increased to 100 mg daily. Patient continued to be in atrial flutter and was given a dose of Cardizem last night and heart rate improved. White blood count is elevated at 28.26 and will monitor closely and repeat labs in the morning. Follow-up CBC and BMP tomorrow. Patient was having some episodes of retaining food in her mouth and speech evaluated and is at risk for aspiration and was downgraded to dysphasia 1 pured diet with nectar thickened liquids and will continue strict aspiration precautions of supervision with meals and had of the bed elevated 30-45 at all times with one-to-one supervision and no straws. Preliminary urine culture showing gram-negative bacilli and awaiting for culture finalization and patient is maintained on IV ceftriaxone and will continue. Due to multiple complex medical issues, prognosis is guarded. Given the severity of symptoms patient will require more than two night hospitalization stay. Social work is following as patient is a resident at [facility] and will return there on discharge
[2021-02-25] MEDS: ATORVASTATIN 20 MG TAB PO SCH (20:18)
[2021-02-25] MEDS: VERAPAMIL SR 120 MG TABLET.ER PO SCH (20:18)
[2021-02-25] MEDS: MELATONIN 5 MG TABLET PO SCH (20:21)
[2021-02-26] MEDS: FLUTICASONE 44 MCG INHALER INHALATION SCH ×2 (08:09→19:27)
[2021-02-26] MEDS: atenoloL 50 MG TAB PO SCH (09:48)
[2021-02-26 09:56] LABS: African American GFR (CKD) 26 (>60 ml/min/1.73 sqM); Anion Gap 13 mmol/L; Blood Urea Nitrogen 91 mg/dL (7-17); Calcium 10.2 mg/dL (8.4-10.2); Carbon Dioxide 20 mmol/L (22-30); Chloride 110 mmol/L (98-107); Glucose 141 mg/dL (74-99); Non-African American GFR(CKD) 22 (>60 ml/min/1.73 sqM); Sodium 143 mmol/L (137-145)
--- NOTE | 2021-02-26 09:59 | P.PN ---
Subjective Progress Note Date: 02/26/21 HISTORY OF PRESENT ILLNESS: This is a 80-year-old female patient with a past medical history significant for hypertension and dyslipidemia who was a [facility] was brought to the hospital after she fell at the [facility]. The patient somewhat is a poor historian. She did not lose her consciousness. He she has severe/extensive bruises on the right face after she fell. Also she developed nosebleed. We consulted to see the patient for abnormal EKG showing atrial flutter with variable block. This is a newly diagnosis the patient she has history of stroke and she was receiving Plavix which was stopped when she came in to the hospital. No indication that the patient has any symptoms of chest pain or chest discomfort or shortness of breath and no presyncope or syncope and no feeling of heart racing or fluttering. She continues to be slightly tachycardic with heart rate of 100 and also elevated blood pressure. 02/25/2021 Patient examined this morning at the bedside. Patient is resting comfortably in bed. She has nasal packing present. She remains in atrial fibrillation. Eliquis was started yesterday. Patient was RVR overnight and she was given cardizem per internal medicine. Echocardiogram completed revealed ejection fraction 50-55% and mild tricuspid regurgitation. 02/26/2021 Patient examined this morning at the bedside. Patient is resting comfortably in bed. She has nasal packing present. She remains in atrial fibrillation with mildly uncontrolled ventricular rates. She remains on Eliquis. Nursing reports multiple black stools. However, hemoglobin has been stable since admission in the 12s. PHYSICAL EXAM: VITAL SIGNS: Reviewed. GENERAL: Well-developed in no acute distress. Nasal packing noted. NECK: Supple. No JVD or thyromegaly LUNGS: Respirations even and unlabored. Lungs essentially clear to auscultation bilaterally. HEART: Irregular rate and rhythm. S1 and S2 heard. EXTREMITIES: Normal range of motion. No clubbing or cyanosis. Peripheral pulses intact. No lower extremity edema ASSESSMENT: Status post fall without LOC Nosebleed New onset persistent typical atrial flutter/fibrillation History of CVA Leukocytosis PLAN: Continue current cardiac medications Increase verapamil to 180 mg for better heart rate control Check STAT CBC. If hemoglobin remains stable, may continue Eliquis. Continue telemetry monitoring Further recommendations pending patient course Nurse practitioner note has been reviewed by physician. Signing provider agrees with the documented findings, assessment, and plan of care. Objective - Vital Signs Vital signs: Vital Signs Temp 98.7 F 02/26/21 07:00 Pulse 104 H 02/26/21 07:00 Resp 17 02/26/21 07:00 BP 116/77 02/26/21 07:00 Pulse Ox 97 02/26/21 07:00 Intake & Output 02/25/21 02/26/21 02/26/21 18:59 06:59 18:59 Other: Voiding Method Diaper Diaper Diaper # Voids 3 3 # Bowel Movements 1 2 2 - Labs CBC & Chem 7: 02/25/21 06:16 02/25/21 06:16 Labs: Abnormal Lab Results - Last 24 Hours (Table) 02/25/21 02/25/21 Range/Units 06:16 06:16 WBC 28.26 H (4.50-10.00) X 10*3/uL RBC 3.85 L (4.10-5.20) X 10*6/uL Hct 35.1 L (37.2-46.3) % Immature Gran # 0.19 H (0.00-0.04) X 10*3/uL Neutrophils # 24.04 H (1.80-7.70) X 10*3/uL Monocytes # 1.73 H (0.20-1.00) X 10*3/uL Eosinophils # 0 L (0.04-0.35) X 10*3/uL BUN 56.0 H (9.0-27.0) mg/dL Est GFR (CKD-EPI)AfAm 45.5 L (60.0-200.0) Est GFR (CKD-EPI)NonAf 39.3 L (60.0-200.0) BUN/Creatinine Ratio 43.08 H (12.00-20.00) Ratio Glucose 161 H (70-110) mg/dL Microbiology - Last 24 Hours (Table) 02/24/21 05:46 Blood Culture - Preliminary Blood No Growth after 48 hours 02/23/21 18:04 Urine Culture - Final Urine,Clean Catch Escherichia coli 02/24/21 09:13 Blood Culture - Preliminary Blood No Growth after 24 hours
[2021-02-26 10:02] LABS: HCT 35.9 % (34.0-46.0); HGB 12.1 gm/dL (11.4-16.0); MCH 31.2 pg (25.0-35.0); MCHC 33.9 g/dL (31.0-37.0); Mean Platelet Volume 8.7; Platelet Count 407 k/uL (150-450); RDW 13.8 % (11.5-15.5); WBC 18.6 k/uL (3.8-10.6)
[2021-02-26] MEDS: FAMOTIDINE 20 MG TAB PO SCH (10:26)
[2021-02-26] MEDS: buPROPion XL 150 MG TAB.ER.24H PO SCH (10:26)
[2021-02-26] MEDS: APIXABAN 2.5 MG TABLET PO SCH ×2 (13:08→21:29)
[2021-02-26] MEDS: SODIUM CHLORIDE 0.9% 1,000 ML IV SCH (14:14)
[2021-02-26] MEDS: ATORVASTATIN 20 MG TAB PO SCH (21:29)
[2021-02-26] MEDS: VERAPAMIL SR 180 MG TABLET.ER PO SCH (21:29)
[2021-02-26] MEDS: MELATONIN 5 MG TABLET PO SCH (21:35)
[2021-02-27] MEDS: SODIUM CHLORIDE 0.9% 1,000 ML IV SCH (04:01)
--- NOTE | 2021-02-27 06:30 | CONS ---
CONSULTATION REASON FOR CONSULTATION: Epistaxis. HISTORY OF PRESENT ILLNESS: This patient is a 80-year-old female who was transferred to [facility] via the emergency room after falling at her alf. At that time, the patient was experiencing nasal bleeding. CT scans of the brain and of the facial bones did not reveal any evidence of nasal or facial bone fractures. However, the patient did have significant nasal bleeding. A nasal clamp was initially placed on the patient and she was returned to the alf. However, the bleeding progressed and the patient was once again brought to [facility] Emergency Room. At that time, the emergency room physician inserted a nasal tampon into the right naris and the patient was admitted. This patient has a history of heart issues including atrial flutter and she also has history of CVA, COPD, and dementia. She is a poor historian because of her dementia. At the time that she was seen in the hospital room, there was no active bleeding and the nasal packing appears to be intact and dry. ALLERGIES: Patient has no known allergies to medications. MEDICATIONS: Her current medications include Wellbutrin, atenolol, Calan, Lipitor, Plavix, Tenormin, Flovent. PAST MEDICAL HISTORY: There is no history of diabetes mellitus, but there is history of COPD and hypertension. REVIEW OF SYSTEMS: Cardiovascular is positive for hypertension and ASHD. Respiratory is positive for COPD. Metabolic endocrine is positive for hypercholesterolemia. The remainder of the review of systems is unremarkable. SOCIAL HISTORY: The patient has a history of smoking 1 to 2 packs cigarettes per day prior to admission to the alf. PHYSICAL EXAMINATION: GENERAL: This patient is a 80-year-old female who is semi-alert and cooperative. HEENT EXAMINATION: Patient is normocephalic. Tympanic membranes are normal. Middle ear spaces are free of any fluid or infection. Pupils equal, round, reactive to light and accommodation. The patient has so-called "raccoon eyes" from the rodrigo-orbital ecchymosis due to her fall. Palpation of the orbital rims, zygomatic arches, and nasal bridge does not reveal any tenderness, step defects, or crepitus. Intranasal examination reveals moderate septal deviation with compensatory hypertrophy of the inferior turbinates. There is a moderate amount of mucus on the mucous membranes and there is not any evidence of bleeding in the left nares . Extraocular movements within normal limits. Examination of oropharynx reveals no evidence of any bleeding down the posterior pharyngeal wall. Cranial nerves 2-12 and the remainder of the head and neck exam are within normal limits. CHEST CARDIOVASCULAR: Both lung lance are clear to percussion and auscultation. Lung sounds are somewhat distant, but otherwise clear. There are no rales, rhonchi or wheezes. The patient is in regular sinus rhythm. S1, S2 are present without evidence in any murmurs. ABDOMEN: There is no evidence of any masses, megaly or tenderness. The abdomen is soft. The remainder of physical exam is unremarkable. IMPRESSION: Right anteroposterior epistaxis, current status right nasal tampon packing is intact and essentially dry at this time. PLAN: Recently the patient was changed from Plavix to Eliquis as an anticoagulant. Because of this, I would like to leave the nasal packing in at least until . At that time, I will take the packing out and institute other measures to control her bleeding and the patient should be able to be discharged on Wednesday. Unfortunately, it is impossible to cauterize a patient's nose in a hospital room. Most traumatic nasal bleeding will stop more easily than the spontaneous type of bleeding that you normally see in elderly patients. I will continue to follow the patient with you on a daily basis and I plan on taking her packing out on , 02/26/2021. I want to take this opportunity to thank you for allowing me to participate in the care of your patient. If I could be of any further assistance, please feel free to call my office. ROBBIN / PIETERN: [id number] / [facility]
[2021-02-27] MEDS: FLUTICASONE 44 MCG INHALER INHALATION SCH ×2 (08:25→20:31)
--- NOTE | 2021-02-27 09:09 | P.PN ---
Subjective Progress Note Date: 02/26/21 Patient is a 80-year-old female with a known history of CVA with left-sided weakness, dementia, hypertension, hyperlipidemia, COPD, obstructive sleep apnea and history of breast cancer status post chemo and radiation, depression and previous history of smoking who [facility] status post fall. Patient did have extensive bruising on the face and around the eyes. She also developed nosebleed. She did have nose back and was [facility] back to [facility]. Patient was brought back to the hospital due to fall. Patient otherwise denied any loss of consciousness. Somewhat poor historian. Denied any complaints of chest pain or worsening shortness of b reath. No fever no chills. Denies any palpitations. EKG showed atrial flutter with variable block. Laboratory data showed WBC 16.0 hemoglobin 12.8 and platelets 393 Sodium 141 potassium 4.1 chloride 108 BUN 59 and creatinine 0.96 blood sugar 135 and calcium 10.2 urinalysis showed turbid with large blood and large leukocyte esterase with elevated RBCs and WBCs. FOBT positive. Facial CT showed blood clot and debris's in the anterior nasopharynx. Large frontal scalp hematoma. No fracture seen. CT head brain repeat showed cerebral atrophy and extensive chronic small vessel ischemia. Frontal scalp hematoma unchanged. Increased density in the nasopharynx consistent with blood clot and debris since that is increasing compared to yesterday. There is new fluid level right maxillary sinus also consistent with hemorrhage. Patient is on Plavix due to history of CVA. 02/25/2021 Patient is seen in follow-up this morning with no new bleeding noted status post starting low-dose anticoagulation. Nasal packing in the right nare has dried blood noted with no new changes. Awaiting ENT consult. Patient was having some issues with swallowing breakfast this morning and had bedside swallow done with speech and patient was having signs of possible aspiration and downgraded to dysphasia 1 pured diet with nectar thick liquids. White blood count is elevated at 28.26, hemoglobin is stable at 12.1, sodium is 142 with a potassium of 4.2 and current BUN is 56 with a creatinine of 1.3. Urine culture preliminary showing gram-negative bacilli and patient is maintained on IV ceftriaxone and will continue. Awaiting for cultures to finalized. Cardiology is following. Patient denies any chest pain or shortness of breath. Patient is afebrile. Patient maintained on a face tent of 7-8 L with an FiO2 of 35%. 02/26/2021 Patient is seen and evaluated in follow-up this morning and appears much more lethargic and dehydrated clinically and will add gentle IV hydration as creatinine was also found to be elevated at 209 with a BUN of 91, potassium is 4.0 and sodium is 143. White blood count trending down at 18.6 and patient remains on IV ceftriaxone as urine culture did finalized showing E. coli. Per nursing staff patient is much more lethargic and continues to have difficulty with pocketing food and swallowing oral medications. ENT also following as patient continues to have the nasal packing and will add Afrin nasal spray with possible packing removal tomorrow. Patient continues on a face tent with oxygen saturations of 95%. Once patient stabilizes and is ready for discharge patient will be returning to [facility] where she is a resident and will have PT/OT evaluate the patient. Patient also being followed by cardiology as patient continues to be tachycardic and verapamil being increased. Patient continues on oral anticoagulant low-dose Eliquis and hemoglobin is stable at 12.1. Patient continues to have dark tarry stools most likely from residual epistaxis. Ab domen is soft and nontender with no guarding or rigidity noted on palpation. Patient is afebrile. No reports of chest pain or shortness of breath. Objective - Vital Signs Vital signs: Vital Signs Temp 98.7 F 02/26/21 07:00 Pulse 104 H 02/26/21 07:00 Resp 17 02/26/21 07:00 BP 116/77 02/26/21 07:00 Pulse Ox 97 02/26/21 07:00 Intake & Output 02/25/21 02/26/21 02/26/21 18:59 06:59 18:59 Other: Voiding Method Diaper Diaper Diaper # Voids 3 3 # Bowel Movements 1 2 2 - Exam Patient is lying up in the bed more lethargic today and minimally arousable, no acute distress, head of the bed is 45 HEENT: Normocephalic. Neck is supple. Pupils reactive. Right Nostril packed. frontal swelling and bruising around eyes.Oral cavity is moist. Neck reveals no JVD, carotid bruits, or thyromegaly. CHEST EXAMINATION: Trachea is central. Symmetrical expansion. Diminished breath sounds bilaterally although Lung lance clear to auscultation and percussion. CARDIAC: Normal S1, S2 with no gallops. No murmurs , tachycardic ABDOMEN: Soft. Bowel sounds normal. No organomegaly. No abdominal bruits. Extremities: trace edema. No clubbing or cyanosis Neurologically lethargic and arousable . left sided weakness Skin: No rash or skin lesions. Psychiatric: Cooperative. Non-suicidal Musculoskeletal: No joint swelling or deformity. - Labs CBC & Chem 7: 02/26/21 09:15 02/26/21 09:15 Labs: Abnormal Lab Results - Last 24 Hours (Table) 02/25/21 02/25/21 Range/Units 06:16 06:16 WBC 28.26 H (4.50-10.00) X 10*3/uL RBC 3.85 L (4.10-5.20) X 10*6/uL Hct 35.1 L (37.2-46.3) % Immature Gran # 0.19 H (0.00-0.04) X 10*3/uL Neutrophils # 24.04 H (1.80-7.70) X 10*3/uL Monocytes # 1.73 H (0.20-1.00) X 10*3/uL Eosinophils # 0 L (0.04-0.35) X 10*3/uL BUN 56.0 H (9.0-27.0) mg/dL Est GFR (CKD-EPI)AfAm 45.5 L (60.0-200.0) Est GFR (CKD-EPI)NonAf 39.3 L (60.0-200.0) BUN/Creatinine Ratio 43.08 H (12.00-20.00) Ratio Glucose 161 H (70-110) mg/dL Microbiology - Last 24 Hours (Table) 02/24/21 05:46 Blood Culture - Preliminary Blood No Growth after 48 hours 02/23/21 18:04 Urine Culture - Final Urine,Clean Catch Escherichia coli 02/24/21 09:13 Blood Culture - Preliminary Blood No Growth after 24 hours Assessment and Plan Assessment: Status post fall with frontal hematoma. No LOC Acute kidney injury likely prerenal azotemia Nosebleed status post nasal packing Atrial flutter with variable block. Still tachycardic. Acute urinary tract infection with culture showing E. coli History of CVA with left-sided weakness Hypertension Hyperlipidemia Obstructive sleep apnea COPD Prior history of smoking History of breast cancer x2 left breast status post radiation and chemo Degenerative joint disease Depression DVT prophylaxis eliquis No code. Plan: Patient will continue on telemetry monitoring. Patient is status post nose packing. No new bleeding noted and ENT is following with possible removal of nasal packing tomorrow and has ordered Afrin 3 times a day. Monitor H&H. Hemoglobin this morning is stable at 12.1. Cardiology also following and patient continues on anticoagulant and continues to be tachycardic and verapamil being increased. Patient is more lethargic today and appears clinically dehydrated with a creatinine of 2.09 and a BUN of 91 and will add gentle IV hydration and repeat a.m. labs. Per nursing staff patient continues to have dark tarry stools which is most likely residual from epistaxis and will continue to monitor closely. Cardiology recommends continued anticoagulant. Will begin is stable. Patient continues to be having difficulty with pocketing food and will continue strict aspiration precautions of supervision with meals and had of the bed elevated 30-45 at all times with one-to-one supervision and no straws. Urine culture finalized showing E. coli and patient is maintained on IV ceftriaxone and will continue. Due to multiple complex medical issues, prognosis is guarded. Will have PT/OT reevaluate the patient. Patient will require authorization once returning to [facility] per her insurance. Social work is following.
--- NOTE | 2021-02-27 09:24 | P.PN ---
Subjective Progress Note Date: 02/27/21 HISTORY OF PRESENT ILLNESS: This is a 80-year-old female patient with a past medical history significant for hypertension and dyslipidemia who was a resident at the [facility] was brought to the hospital after she fell at the [facility]. The patient somewhat is a poor historian. She did not lose her consciousness. He she has severe/extensive bruises on the right face after she fell. Also she developed nosebleed. We consulted to see the patient for abnormal EKG showing atrial flutter with variable block. This is a newly diagnosis the patient she has history of stroke and she was receiving Plavix which was stopped when she came in to the hospital. No indication that the patient has any symptoms of chest pain or chest discomfort or shortness of breath and no presyncope or syncope and no feeling of heart racing or fluttering. She continues to be slightly tachycardic with heart rate of 100 and also elevated blood pressure. 02/25/2021 Patient examined this morning at the bedside. Patient is resting comfortably in bed. She has nasal packing present. She remains in atrial fibrillation. Eliquis was started yesterday. Patient was RVR overnight and she was given cardizem per internal medicine. Echocardiogram completed revealed ejection fraction 50-55% and mild tricuspid regurgitation. 02/26/2021 Patient examined this morning at the bedside. Patient is resting comfortably in bed. She has nasal packing present. She remains in atrial fibrillation with mildly uncontrolled ventricular rates. She remains on Eliquis. Nursing reports multiple black stools. However, hemoglobin has been stable since admission in the 12s. 02/27/2021 Patient examined this morning at the bedside. Patient is awake and alert this morning. She denies chest pain or pressure. Denies shortness of breath. Patient remains on Eliquis. Nursing states black stools have resolved. Hemoglobin has remained stable. Telemetry reveals atrial fibrillation with cont rolled ventricular rate. PHYSICAL EXAM: VITAL SIGNS: Reviewed. GENERAL: Well-developed in no acute distress. Nasal packing noted. NECK: Supple. No JVD or thyromegaly LUNGS: Respirations even and unlabored. Lungs essentially clear to auscultation bilaterally. HEART: Irregular rate and rhythm. S1 and S2 heard. EXTREMITIES: Normal range of motion. No clubbing or cyanosis. Peripheral pulses intact. No lower extremity edema ASSESSMENT: Status post fall without LOC Nosebleed New onset persistent typical atrial flutter/fibrillation History of CVA Leukocytosis PLAN: Continue current cardiac medications Continue anticoagulation with Eliquis Continue telemetry monitoring We will sign off. Please reconsult if needed Nurse practitioner note has been reviewed by physician. Signing provider agrees with the documented findings, assessment, and plan of care. Objective - Vital Signs Vital signs: Vital Signs Temp 98.1 F 02/27/21 07:00 Pulse 90 02/27/21 02:00 Resp 18 02/27/21 07:00 BP 96/71 02/27/21 07:00 Pulse Ox 95 02/27/21 07:00 Intake & Output 02/26/21 02/27/21 02/27/21 18:59 06:59 18:59 Other: Voiding Method Diaper Diaper # Voids 2 2 # Bowel Movements 1 2 - Labs CBC & Chem 7: 02/27/21 09:14 02/27/21 09:14 Labs: Abnormal Lab Results - Last 24 Hours (Table) 02/26/21 02/26/21 Range/Units 09:15 09:15 WBC 18.6 H (3.8-10.6) k/uL Chloride 110 H (98-107) mmol/L Carbon Dioxide 20 L (22-30) mmol/L BUN 91 H (7-17) mg/dL Creatinine 2.09 H (0.52-1.04) mg/dL Glucose 141 H (74-99) mg/dL Microbiology - Last 24 Hours (Table) 02/24/21 05:46 Blood Culture - Preliminary Blood No Growth after 72 hours 02/24/21 09:13 Blood Culture - Preliminary Blood No Growth after 48 hours
[2021-02-27] MEDS: buPROPion XL 150 MG TAB.ER.24H PO SCH (09:42)
[2021-02-27] MEDS: FAMOTIDINE 20 MG TAB PO SCH (09:42)
[2021-02-27] MEDS: APIXABAN 2.5 MG TABLET PO SCH ×2 (09:42→21:14)
[2021-02-27] MEDS: atenoloL 50 MG TAB PO SCH (09:43)
[2021-02-27 10:11] LABS: African American GFR (CKD) 25 (>60 ml/min/1.73 sqM); Anion Gap 12 mmol/L; Blood Urea Nitrogen 100 mg/dL (7-17); Calcium 9.7 mg/dL (8.4-10.2); Carbon Dioxide 21 mmol/L (22-30); Chloride 115 mmol/L (98-107); Glucose 113 mg/dL (74-99); Non-African American GFR(CKD) 21 (>60 ml/min/1.73 sqM); Potassium 3.7 mmol/L (3.5-5.1); Sodium 148 mmol/L (137-145)
[2021-02-27 10:26] LABS: HCT 32.5 % (34.0-46.0); HGB 11.2 gm/dL (11.4-16.0); MCH 31.7 pg (25.0-35.0); MCHC 34.4 g/dL (31.0-37.0); MCV 92.1 fL (80.0-100.0); Mean Platelet Volume 9.2; Platelet Count 402 k/uL (150-450); RBC 3.53 m/uL (3.80-5.40); RDW 14.3 % (11.5-15.5); WBC 22.2 k/uL (3.8-10.6)
[2021-02-27 11:04] LABS: Band Neutrophils % 2 %; Metamyelocytes # (M) 0.22 k/uL (0); Metamyelocytes % 1 %; Monocytes # (M) 3.11 k/uL (0-1.0); Myelocytes # (M) 0.22 k/uL (0); Myelocytes % 1 %; Neutrophils % (M) 66 %; Nucleated Red Blood Cells 0 /100 WBC (0-0); Total Cells Counted 200
[2021-02-27] MEDS ORDERED: DEXTROSE 5% IN WATER 1,000 ML IV ONE (11:11)
--- NOTE | 2021-02-27 15:35 | P.PN ---
Subjective Progress Note Date: 02/27/21 Patient is a 80-year-old female with a known history of CVA with left-sided weakness, dementia, hypertension, hyperlipidemia, COPD, obstructive sleep apnea and history of breast cancer status post chemo and radiation, depression and previous history of smoking who [facility] was brought to the hospital status post fall. Patient did have extensive bruising on the face and around the eyes. She also developed nosebleed. She did have nose back and was sent back to prison. Patient was brought back to the hospital due to fall. Patient otherwise denied any loss of consciousness. Somewhat poor historian. Denied any complaints of chest pain or worsening shortness of b reath. No fever no chills. Denies any palpitations. EKG showed atrial flutter with variable block. Laboratory data showed WBC 16.0 hemoglobin 12.8 and platelets 393 Sodium 141 potassium 4.1 chloride 108 BUN 59 and creatinine 0.96 blood sugar 135 and calcium 10.2 urinalysis showed turbid with large blood and large leukocyte esterase with elevated RBCs and WBCs. FOBT positive. Facial CT showed blood clot and debris's in the anterior nasopharynx. Large frontal scalp hematoma. No fracture seen. CT head brain repeat showed cerebral atrophy and extensive chronic small vessel ischemia. Frontal scalp hematoma unchanged. Increased density in the nasopharynx consistent with blood clot and debris since that is increasing compared to yesterday. There is new fluid level right maxillary sinus also consistent with hemorrhage. Patient is on Plavix due to history of CVA. 02/25/2021 Patient is seen in follow-up this morning with no new bleeding noted status post starting low-dose anticoagulation. Nasal packing in the right nare has dried blood noted with no new changes. Awaiting ENT consult. Patient was having some issues with swallowing breakfast this morning and had bedside swallow done with speech and patient was having signs of possible aspiration and downgraded to dysphasia 1 pured diet with nectar thick liquids. White blood count is elevated at 28.26, hemoglobin is stable at 12.1, sodium is 142 with a potassium of 4.2 and current BUN is 56 with a creatinine of 1.3. Urine culture preliminary showing gram-negative bacilli and patient is maintained on IV ceftriaxone and will continue. Awaiting for cultures to finalized. Cardiology is following. Patient denies any chest pain or shortness of breath. Patient is afebrile. Patient maintained on a face tent of 7-8 L with an FiO2 of 35%. 02/26/2021 Patient is seen and evaluated in follow-up this morning and appears much more lethargic and dehydrated clinically and will add gentle IV hydration as creatinine was also found to be elevated at 209 with a BUN of 91, potassium is 4.0 and sodium is 143. White blood count trending down at 18.6 and patient remains on IV ceftriaxone as urine culture did finalized showing E. coli. Per nursing staff patient is much more lethargic and continues to have difficulty with pocketing food and swallowing oral medications. ENT also following as patient continues to have the nasal packing and will add Afrin nasal spray with possible packing removal tomorrow. Patient continues on a face tent with oxygen saturations of 95%. Once patient stabilizes and is ready for discharge patient will be returning to [facility] where she is a resident and will have PT/OT evaluate the patient. Patient also being followed by cardiology as patient continues to be tachycardic and verapamil being increased. Patient continues on oral anticoagulant low-dose Eliquis and hemoglobin is stable at 12.1. Patient continues to have dark tarry stools most likely from residual epistaxis. Ab domen is soft and nontender with no guarding or rigidity noted on palpation. Patient is afebrile. No reports of chest pain or shortness of breath. 02/27/2021 Patient is seen in follow-up this morning and is currently awake sitting up and attempting to feed herself applesauce and appears more alert today. Patient was started on IV hydration and follow-up labs showing white count trending back up at 22.2, hemoglobin is stable at 11.2 with no further bleeding noted, sodium is 148 with a potassium of 3.7 and current creatinine is 2.15 with a BUN of 100. Nephrology consulted for hypernatremia and worsening kidney functions. Will transition IV fluids to D5 and water at 75 ML per hour and repeat a.m. labs. ENT is following as well along with cardiology and patient is continued on Eliquis with no further bleeding noted. Plans are to possibly remove the nasal packing in the right nare and is continued on Afrin. Will await and appreciate ENT recommendations. Patient denies any chest pain or shortness of breath. Patient is afebrile. Urology also continues on IV ceftriaxone as her urine culture did finalized showing E. coli. Per nursing staff no further reports of black tarry stools noted. Objective - Vital Signs Vital signs: Vital Signs Temp 98.1 F 02/27/21 07:00 Pulse 90 02/27/21 02:00 Resp 18 02/27/21 07:00 BP 96/71 02/27/21 07:00 Pulse Ox 95 02/27/21 07:00 Intake & Output 02/26/21 02/27/21 02/27/21 18:59 06:59 18:59 Other: Voiding Method Diaper Diaper # Voids 2 2 # Bowel Movements 1 2 - Exam Patient is sitting up in the bed more awake today and able to converse minimally, no acute distress, head of the bed is 45 HEENT: Normocephalic. Neck is supple. Pupils reactive. Right Nostril packed. frontal swelling and bruising around eyes.Oral cavity is moist. Neck reveals no JVD, carotid bruits, or thyromegaly. CHEST EXAMINATION: Trachea is central. Symmetrical expansion. Diminished breath sounds bilaterally although Lung lance clear to auscultation and percussion. CARDIAC: Normal S1, S2 with no gallops. No murmurs , tachycardic ABDOMEN: Soft. Bowel sounds normal. No organomegaly. No abdominal bruits. Extremities: trace edema. No clubbing or cyanosis Neurologically awake and alert . left sided weakness Skin: No rash or skin lesions. Psychiatric: Cooperative. Non-suicidal Musculoskeletal: No joint swelling or deformity. - Labs CBC & Chem 7: 02/27/21 09:14 02/27/21 09:14 Labs: Abnormal Lab Results - Last 24 Hours (Table) 02/26/21 02/26/21 Range/Units 09:15 09:15 WBC 18.6 H (3.8-10.6) k/uL Chloride 110 H (98-107) mmol/L Carbon Dioxide 20 L (22-30) mmol/L BUN 91 H (7-17) mg/dL Creatinine 2.09 H (0.52-1.04) mg/dL Glucose 141 H (74-99) mg/dL Microbiology - Last 24 Hours (Table) 02/24/21 05:46 Blood Culture - Preliminary Blood No Growth after 72 hours 02/24/21 09:13 Blood Culture - Preliminary Blood No Growth after 48 hours Assessment and Plan Assessment: Status post fall with frontal hematoma. No LOC Acute kidney injury likely prerenal azotemia Nosebleed status post nasal packing Atrial flutter with variable block. Still tachycardic. Acute urinary tract infection with culture showing E. coli History of CVA with left-sided weakness Hypertension Hyperlipidemia Obstructive sleep apnea COPD Prior history of smoking History of breast cancer x2 left breast status post radiation and chemo Degenerative joint disease Depression DVT prophylaxis eliquis No code. Plan: Patient will continue on telemetry monitoring. Patient is status post nose packing. No new bleeding noted and ENT is following with possible removal of nasal packing today and has ordered Afrin 3 times a day. Monitor H&H. Hemoglobin this morning is stable at 11.2. Cardiology also following. Patient appears clinically dehydrated with a creatinine that has worsened and is 2.15 and a BUN of 100 and started on gentle IV hydration in the form of normal saline although repeat labs today show a sodium of 148 and will transition gentle fluids to D5 and water at 75 ML per hour and repeat a.m. labs. Nephrology consulted and pending. Per nursing staff patient has no further episodes of dark tarry stools noted. Patient continues to be having difficulty with pocketing food and will continue strict aspiration precautions of supervision with meals and had of the bed elevated 30-45 at all times with one-to-one supervision and no straws. Urine culture finalized showing E. coli and patient is maintained on IV ceftriaxone and will continue. Due to multiple complex medical issues, prognosis is guarded. Will have PT/OT reevaluate the patient. Patient will require authorization once returning to [facility] per her insurance. Social work is following.
[2021-02-27] MEDS: OXYMETAZOLINE 0.05% NASL SPRAY 1 SPRAY BOTTLE NASAL SCH ×2 (16:56→21:15)
[2021-02-27 20:19] VITALS: RESP 16
[2021-02-27] MEDS: ATORVASTATIN 20 MG TAB PO SCH (21:14)
[2021-02-27] MEDS: MELATONIN 5 MG TABLET PO SCH (21:14)
[2021-02-27] MEDS: VERAPAMIL SR 180 MG TABLET.ER PO SCH (21:14)
--- NOTE | 2021-02-28 06:24 | PN ---
PROGRESS NOTE DATE OF SERVICE: 02/26/2021 SUBJECTIVE: Vital signs are stable. The patient has not had any further active bleeding since her admission. She has no somatic complaints with respect to her nose at this time. OBJECTIVE: Clinical examination of the left naris reveals no active bleeding on the left side of the nose and the right nasal tampon is intact and dry. Examination of oropharynx does not reveal any evidence of any bleeding down the posterior pharynx. The remainder of the head and neck exam is essentially unremarkable. The remainder of physical exam is essentially unchanged since admission. ASSESSMENT: Right anterior posterior epistaxis. PLAN: I would like to leave the nasal packing in until , 02/27/2021. At that time, I will remove the nasal packing and most likely begin spraying the patient's nose with Afrin nasal spray. I use this regimen because it is impossible to cauterize a patient's nose in a hospital room. I will continue to follow this patient with you. MMODL / IJN: [id number] /
--- NOTE | 2021-02-28 06:24 | PN ---
PROGRESS NOTE DATE OF SERVICE: 02/27/2021 SUBJECTIVE: Vital signs are stable. The patient is much more alert today. She states that she is in no discomfort. She has not had any further bleeding from the right side of her nose since her admission. OBJECTIVE: The left nasal chamber was inspected and there was no evidence of any active bleeding. The nasal tampon which was in the patient's right naris was removed without incident in an atraumatic fashion. Inspection after removal revealed numerous microbleeding sites on the right side of the nasal septum but no evidence of any active bleeding. Examination of the oropharynx did not reveal any bleeding down the posterior pharyngeal wall after removal of the nasal packing. The right nasal chamber was sprayed generously with 2-3 puffs of Afrin nasal spray. A nasal drip pad/mustache dressing was created with an eye pad to absorb any possible nasal drainage after removal of the nasal tampon. The remainder of the head and neck exam and physical exam is unchanged since last visit. ASSESSMENT: Right anterior-posterior epistaxis. PLAN: From an ENT standpoint, as long as the patient has no further bleeding, she can be discharged back to the [facility]? tomorrow. I would recommend that the Afrin nasal spray be sent back with her and that they continue using this 2 puffs in the right side twice daily for an additional 4 days and then discontinue. Also, it would be a good idea to send her back on any oral antibiotic such as a Z-Oscar or Keflex, etc. The Z-Oscar will be for 5 days or Keflex 500 mg b.i.d. for 7 days. I will not need to see this patient for followup in my office. If possible, I will see the patient tomorrow after my surgical cases, if she has not already been discharged. Thank you for allowing me to assist you in the care of this very nice patient. MMODL / IJN: [id number] / MTDD
[2021-02-28] MEDS: FLUTICASONE 44 MCG INHALER INHALATION SCH (08:09)
[2021-02-28] MEDS: buPROPion XL 150 MG TAB.ER.24H PO SCH (08:34)
[2021-02-28] MEDS: FAMOTIDINE 20 MG TAB PO SCH (08:34)
[2021-02-28] MEDS: atenoloL 50 MG TAB PO SCH (08:34)
[2021-02-28] MEDS: APIXABAN 2.5 MG TABLET PO SCH (08:34)
[2021-02-28] MEDS: OXYMETAZOLINE 0.05% NASL SPRAY 1 SPRAY BOTTLE NASAL SCH (08:36)
[2021-02-28 11:27] LABS: Basophils # (A) 0.1 k/uL (0-0.2); Basophils % (A) 1 %; Eosinophils # (A) 0.3 k/uL (0-0.7); Eosinophils % (A) 1 %; Lymphocytes # (A) 2.7 k/uL (1.0-4.8); Lymphocytes % (A) 13 %; MCH 32.5 pg (25.0-35.0); MCHC 35.3 g/dL (31.0-37.0); MCV 92.1 fL (80.0-100.0); Mean Platelet Volume 8.6; Monocytes # (A) 1.6 k/uL (0-1.0); Monocytes % (A) 8 %; Neutrophils # (A) 15.6 k/uL (1.3-7.7); Neutrophils % (A) 75 %; Platelet Count 398 k/uL (150-450); Poikilocytosis Slight; RBC 3.37 m/uL (3.80-5.40); RDW 14.1 % (11.5-15.5); WBC 20.8 k/uL (3.8-10.6)
[2021-02-28 11:31] LABS: African American GFR (CKD) 39 (>60 ml/min/1.73 sqM); Anion Gap 8 mmol/L; Blood Urea Nitrogen 69 mg/dL (7-17); Calcium 9.2 mg/dL (8.4-10.2); Carbon Dioxide 23 mmol/L (22-30); Chloride 115 mmol/L (98-107); Glucose 146 mg/dL (74-99); Non-African American GFR(CKD) 34 (>60 ml/min/1.73 sqM); Potassium 3.2 mmol/L (3.5-5.1); Sodium 146 mmol/L (137-145)
[2021-02-28] MEDS ORDERED: Potassium Replacement Protocol 1 EACH MISC MISCELLANE PRN (12:03)
[2021-02-28] MEDS: POTASSIUM CHLORIDE 10 MEQ in WATER FOR INJECTION 1 100ML.BAG IVPB SCH ×3 (12:30→15:19)
[2021-02-28 12:32] VITALS: BP 100/71; PULSE 113; TEMP 98.4
--- NOTE | 2021-02-28 13:45 | P.DS ---
Providers Date of admission: 02/25/21 11:50 Expected date of discharge: 02/28/21 Attending physician: Simin Ball MD Consults: 02/24/21 10:52 Consult Physician Routine Consulting Provider: Dean Mueller Consult Reason/Comments: nose bleed Do you want consulting provider notified?: Already Contacted 02/27/21 11:11 Consult Physician Urgent Consulting Provider: Jeanne Cook Consult Reason/Comments: acute kidney injury, hypernatremia Do you want consulting provider notified?: Yes Primary care physician: Viktor Walter [facility] Course: Final diagnosis Status post fall with frontal hematoma. No LOC Acute kidney injury likely prerenal azotemia, improving Nosebleed status post nasal packing, resolved Atrial flutter with variable block Acute urinary tract infection with culture showing E. coli History of CVA with left-sided weakness Hypertension Hyperlipidemia Obstructive sleep apnea COPD Prior history of smoking History of breast cancer x2 left breast status post radiation and chemo Degenerative joint disease Depression DVT prophylaxis No code Discharge disposition Patient is being discharged in a stable condition with guarded prognosis to [facility] where she is a resident. Patient will follow-up with Dr. Walter in the outpatient setting upon discharge. Patient is continue with oral Ceftin 500 mg twice daily for the next 5 days and then may discontinue. Patient also to continue with nasal spray Afrin 2 puffs 3 times daily to the right nostril for the next 4 days and then may discontinue. Total time taken is greater than 35 minutes. Hospital course Patient is a 80-year-old female with a known history of CVA with left-sided weakness, dementia, hypertension, hyperlipidemia, COPD, obstructive sleep apnea and history of breast cancer status post chemo and radiation, depression and previous history of smoking who is currently living at shelter was brought to the hospital status post fall. Patient did have extensive bruising on the face and around the eyes. She also developed nosebleed. She did have nose back and was sent back to shelter. Patient was brought back to the hospital due to fall. Patient otherwise denied any loss of consciousness. Somewhat poor historian. Denied any complaints of chest pain or worsening shortness of breath. No fever no chills. Denies any palpitations. EKG showed atrial flutter with variable block. Laboratory data showed WBC 16.0 hemoglobin 12.8 and platelets 393 Sodium 141 potassium 4.1 chloride 108 BUN 59 and creatinine 0.96 blood sugar 135 and calcium 10.2 urinalysis showed turbid with large blood and large leukocyte esterase with elevated RBCs and WBCs. FOBT positive. Facial CT showed blood clot and debris's in the anterior nasopharynx. Large frontal scalp hematoma. No fracture seen. CT head brain repeat showed cerebral atrophy and extensive chronic small vessel ischemia. Frontal scalp hematoma unchanged. Increased density in the nasopharynx consistent with blood clot and debris since that is increasing compared to yesterday. There is new fluid level right maxillary sinus also consistent with hemorrhage. Patient is on Plavix due to history of CVA. 02/25/2021 Patient is seen in follow-up this morning with no new bleeding noted status post starting low-dose anticoagulation. Nasal packing in the right nare has dried blood noted with no new changes. Awaiting ENT consult. Patient was having some issues with swallowing breakfast this morning and had bedside swallow done with speech and patient was having signs of possible aspiration and downgraded to dysphasia 1 pured diet with nectar thick liquids. White blood count is elevated at 28.26, hemoglobin is stable at 12.1, sodium is 142 with a potassium of 4.2 and current BUN is 56 with a creatinine of 1.3. Urine culture preliminary showing gram-negative bacilli and patient is maintained on IV ceftriaxone and will continue. Awaiting for cultures to finalized. Cardiology is following. Patient denies any chest pain or shortness of breath. Patient is afebrile. Patient maintained on a face tent of 7-8 L with an FiO2 of 35%. 02/26/2021 Patient is seen and evaluated in follow-up this morning and appears much more lethargic and dehydrated clinically and will add gentle IV hydration as creatinine was also found to be elevated at 209 with a BUN of 91, potassium is 4.0 and sodium is 143. White blood count trending down at 18.6 and patient remains on IV ceftriaxone as urine culture did finalized showing E. coli. Per nursing staff patient is much more lethargic and continues to have difficulty with pocketing food and swallowing oral medications. ENT also following as patient continues to have the nasal packing and will add Afrin nasal spray with possible packing removal tomorrow. Patient continues on a face tent with oxygen saturations of 95%. Once patient stabilizes and is ready for discharge patient will be returning to [facility] where she is a resident and will have PT/OT evaluate the patient. Patient also being followed by cardiology as patient continues to be tachycardic and verapamil being increased. Patient continues on oral anticoagulant low-dose Eliquis and hemoglobin is stable at 12.1. Patient continues to have dark tarry stools most likely from residual epistaxis. Abdomen is soft and nontender with no guarding or rigidity noted on palpation. Patient is afebrile. No reports of chest pain or shortness of breath. 02/27/2021 Patient is seen in follow-up this morning and is currently awake sitting up and attempting to feed herself applesauce and appears more alert today. Patient was started on IV hydration and follow-up labs showing white count trending back up at 22.2, hemoglobin is stable at 11.2 with no further bleeding noted, sodium is 148 with a potassium of 3.7 and current creatinine is 2.15 with a BUN of 100. Nephrology consulted for hypernatremia and worsening kidney functions. Will transition IV fluids to D5 and water at 75 ML per hour and repeat a.m. labs. ENT is following as well along with cardiology and patient is continued on Eliquis with no further bleeding noted. Plans are to possibly remove the nasal packing in the right nare and is continued on Afrin. Will await and appreciate ENT recommendations. Patient denies any chest pain or shortness of breath. Patient is afebrile. Patient also continues on IV ceftriaxone as her urine culture did finalized showing E. coli. Per nursing staff no further reports of black tarry stools noted. 02/28/2021 Patient is seen in follow-up this morning much more awake and alert conversing and feeding herself. Patient denies any acute overnight issues and is asking to return home. Nasal packing from the right nostril was removed with no further bleeding noted. Hemoglobin is stable at 11.0 and white blood count trending down at 20.8 and recommend repeat labs outpatient in a few days to monitor CBC and BMP. Patient was continued on gentle IV hydration in the form of D5 and water and sodium improved and potassium was found to be slightly low at 3.2 and will replace. BUN and creatinine much improved at 69 and current creatinine is 1.48 and again recommend follow-up labs outpatient closely. Patient will continue on oral Ceftin 500 mg twice daily for the next 5 days and then may discontinue for UTI with E. coli associated. Patient also to continue on nasal Afrin spray 2 puffs to the right nostril 3 times daily for the next 4 days per ENT recommendations. Continue to encourage oral intake and follow-up closely with repeat labs. Currently no reports of chest pain, shortness of breath, or palpitations. Patient is afebrile. No reports of nausea or vomiting and patient is tolerating diet. Patient will be going to [facility] today. On exam vital signs are stable. Cardio S1, S2 are muffled. Respiratory system shows diminished breath sounds at the bases with no wheezing or rhonchi noted. Abdomen is soft and nontender. Nervous system shows diffuse weakness. Please refer to medication reconciliation sheet for a list of medications. Patient Condition at Discharge: Fair Plan - Discharge Summary Discharge Rx Participant: Yes New Discharge Prescriptions: New Cefuroxime Axetil [Ceftin] 500 mg PO BID 5 Days #10 tab Oxymetazoline 0.05% Nasl Cathay [Afrin 0.05% Nasal Cathay] 2 spray NASAL TID #1 bottle Apixaban [Eliquis] 2.5 mg PO BID tablet Verapamil Sr [Isoptin Sr] 180 mg PO HS tablet.er Famotidine [Pepcid] 20 mg PO DAILY tab Continue Cholecalciferol [Vitamin D3 (25 Mcg = 1000 Iu)] 50 mcg PO BID buPROPion HCL [Wellbutrin XL] 150 mg PO DAILY Glucos Sul 2Kcl/MSM/Chond/C/Mn [Glucosamine Chondroitin Cap] 1 cap PO HS Multivitamins, Thera [Multivitamin (formulary)] 1 tab PO DAILY atenoloL [Tenormin] 50 mg PO DAILY Fluticasone Propionate [Flovent Diskus] 1 puff INHALATION RT-BID Melatonin 5 mg PO HS Atorvastatin [Lipitor] 20 mg PO HS Discontinued Verapamil HCl [Calan] 120 mg PO HS Aspirin 81 mg PO DAILY Clopidogrel [Plavix] 75 mg PO DAILY Discharge Medication List Cholecalciferol [Vitamin D3 (25 Mcg = 1000 Iu)] 50 mcg PO BID 03/09/17 [History] buPROPion HCL [Wellbutrin XL] 150 mg PO DAILY 06/16/19 [History] Glucos Sul 2Kcl/MSM/Chond/C/Mn [Glucosamine Chondroitin Cap] 1 cap PO HS 02/12/20 [History] Multivitamins, Thera [Multivitamin (formulary)] 1 tab PO DAILY 02/12/20 [History] Fluticasone Propionate [Flovent Diskus] 1 puff INHALATION RT-BID 07/24/20 [History] atenoloL [Tenormin] 50 mg PO DAILY 07/24/20 [History] Atorvastatin [Lipitor] 20 mg PO HS 02/23/21 [History] Melatonin 5 mg PO HS 02/23/21 [History] Apixaban [Eliquis] 2.5 mg PO BID tablet 02/28/21 [Rx] Cefuroxime Axetil [Ceftin] 500 mg PO BID 5 Days #10 tab 02/28/21 [Rx] Famotidine [Pepcid] 20 mg PO DAILY tab 02/28/21 [Rx] Oxymetazoline 0.05% Nasl Cathay [Afrin 0.05% Nasal Cathay] 2 spray NASAL TID #1 bottle 02/28/21 [Rx] Verapamil Sr [Isoptin Sr] 180 mg PO HS tablet.er 02/28/21 [Rx] Follow up Appointment(s)/Referral(s): Viktor Walter DO [Primary Care Provider] - 1-2 days Ambulatory/Diagnostic Orders: Complete Blood Count w/diff [LAB.AMB] Time Frame: 3 Days, Location: None Selected Activity/Diet/Wound Care/Special Instructions: Patient is returning to [facility] Activity as tolerated Continue current dysphasia 1 pured diet with aspiration precautions of head of the bed elevated 30-45 at all times, nectar thickened liquids, no straws, supervision with meals Continue with Afrin nasal spray to the right nostril 2 puffs 3 times daily for the next 4 days and then may discontinue Continue with oral antibiotics twice daily for the next 5 days and then may discontinue Repeat labs in 2-3 days to monitor electrolytes and kidney functions along with hemoglobin (cbc and bmp) Follow-up with primary care provider upon discharge Discharge Disposition: TRANSFER TO SNF/ECF
--- NOTE | 2021-02-28 22:19 | CONS ---
CONSULTATION REASON FOR CONSULT: Renal failure. HISTORY OF PRESENT ILLNESS: Patient is a 80-year-old female who was admitted to the hospital on 02/23/2021 . The patient has an underlying history of dementia, hypertension, COPD. She has CVA with left-sided weakness. The patient has had large hematoma on the face. Cat scan showed blood clot and debris in the anterior nasopharynx. Patient's serum creatinine was 1.3. Initially, it increased to 2.15, but is down to 1.48 again today. The patient's blood pressure was low. She was started on IV fluids. She has been voiding and has been incontinent. PAST MEDICAL HISTORY: Significant for hypertension, COPD, history of CVA, dementia, hyperlipidemia, obstructive sleep apnea, chronic kidney disease stage 3, history of breast cancer, radiation therapy chemotherapy, history of acute kidney injury. PAST SURGICAL HISTORY: Hysterectomy, left breast lumpectomy, bilateral mastectomy with reconstruction and implant and subsequent removal of one of the implants due to infection. SOCIAL HISTORY: Patient is a former smoker. No history of drug abuse or alcohol abuse. MEDICATIONS: Medications prior to admission included: Vitamin D, Calan, Wellbutrin, multivitamins, Plavix, aspirin, Tenormin, Lipitor, melatonin. ALLERGIES: None. PHYSICAL EXAMINATION: Patient is comfortable, awake, not in any acute distress. She has large hematoma on her forehead and her both orbits. The patient is following commands. Blood pressure 100/71, heart rate 113 per minute. She is afebrile. Examination of the heart S1, S2. Examination of lungs, bilateral breath sounds are heard. Abdomen is soft, nontender. Examination of lower extremities shows no significant edema. DESKTOP TECHNICIAN exam grossly intact. LAB: Show sodium of 146, potassium 3.2, chloride 115, CO2 is 23, BUN 69, creatinine 1.48, hemoglobin of 11.0 g/dL. ASSESSMENT: 1. Acute kidney injury, prerenal and associated with low blood pressure, currently improved with IV fluids. 2. Hypokalemia secondary to decreased oral intake. 3. Chronic kidney disease and NKF stage IIIB previous creatinine 0.9 mg/dL. 4. Mild hypernatremia associated with free water deficit, now improved. 5. Status post fall with facial hematoma. 6. Urinary tract infection, urine culture growing Escherichia coli. PLAN: Patient can be discharged. Monitor labs as outpatient. Encourage increased oral intake. Continue antibiotics to finish course for UTI. Thank you for this consultation. MMODL / IJN: [id number] /
== END 2021-02-28 16:21 | DRG 151 ==
LOC: EC 15:43 → 6NMEDSUR 18:57 → OBSVTOIN 02-25 11:50 → 5NMEDONC 02-27 16:30
PROVIDERS: ADMIT Internal Medicine; ATTEND Internal Medicine
DX: R04.0 Epistaxis (principal); N17.9 Acute kidney failure, unspecified; N39.0 Urinary tract infection, site not specified; E87.0 Hyperosmolality and hypernatremia; I48.3 Typical atrial flutter; I69.354 Hemiplegia and hemiparesis following cerebral infarction affecting left non-dominant side; N18.30 Chronic kidney disease, stage 3 unspecified; M19.90 Unspecified osteoarthritis, unspecified site; N28.9 Disorder of kidney and ureter, unspecified; E86.0 Dehydration; B96.20 Unspecified Escherichia coli [E. coli] as the cause of diseases classified elsewhere; E78.5 Hyperlipidemia, unspecified; E87.6 Hypokalemia; F03.90 Unspecified dementia, unspecified severity, without behavioral disturbance, psychotic disturbance, mood disturbance, and anxiety; F32.9 Major depressive disorder, single episode, unspecified; G47.33 Obstructive sleep apnea (adult) (pediatric); I12.9 Hypertensive chronic kidney disease with stage 1 through stage 4 chronic kidney disease, or unspecified chronic kidney disease; I48.91 Unspecified atrial fibrillation; J44.9 Chronic obstructive pulmonary disease, unspecified; Z79.01 Long term (current) use of anticoagulants; Z79.02 Long term (current) use of antithrombotics/antiplatelets; Z79.51 Long term (current) use of inhaled steroids; Z79.82 Long term (current) use of aspirin; Z79.899 Other long term (current) drug therapy; Z80.3 Family history of malignant neoplasm of breast; Z80.41 Family history of malignant neoplasm of ovary; Z85.3 Personal history of malignant neoplasm of breast; Z87.440 Personal history of urinary (tract) infections; Z87.891 Personal history of nicotine dependence; Z90.13 Acquired absence of bilateral breasts and nipples; Z90.710 Acquired absence of both cervix and uterus; Z92.21 Personal history of antineoplastic chemotherapy; Z92.3 Personal history of irradiation; Z96.611 Presence of right artificial shoulder joint; Z96.612 Presence of left artificial shoulder joint
CPT/HCPCS: 36415; 70450; 80048; 81001; 82272; 83605; 85025; 85027; 85610; 85730; 87040; 87077; 87086; 87186; 93306; 94640; 94760; 96365; 99284

== ENCOUNTER 2021-03-01 19:02 | Inpatient (IN) | payer MEDICARE, OTHER ==
[2021-03-01] MEDS ORDERED: SODIUM CHLORIDE 0.9% 500 ML 500 ML IV STA (19:10)
[2021-03-01 19:13] LABS: Glucose,Whole Blood 146 mg/dL (75-99)
[2021-03-01 19:32] LABS: Basophils # (A) 0.2 k/uL (0-0.2); Basophils % (A) 1 %; Eosinophils # (A) 0.2 k/uL (0-0.7); Eosinophils % (A) 1 %; HCT 37.6 % (34.0-46.0); HGB 12.9 gm/dL (11.4-16.0); Lymphocytes % (A) 13 %; MCH 31.2 pg (25.0-35.0); MCHC 34.3 g/dL (31.0-37.0); MCV 91.1 fL (80.0-100.0); Mean Platelet Volume 8.3; Monocytes # (A) 2.2 k/uL (0-1.0); Monocytes % (A) 9 %; Neutrophils % (A) 75 %; Platelet Count 544 k/uL (150-450); Poikilocytosis Slight; RBC 4.13 m/uL (3.80-5.40)
[2021-03-01] MEDS ORDERED: SODIUM CHLORIDE 0.9% 1,000 ML IV ONE (19:32)
--- NOTE | 2021-03-01 19:36 | ED ---
General Adult HPI - General Chief complaint: Altered Mental Status Stated complaint: Poss Stroke Source: patient, family, EMS, RN notes reviewed, old records reviewed Mode of arrival: EMS Limitations: physical limitation - History of Present Illness Initial comments: 80-year-old female presented for evaluation of altered mental status, slurred speech, left-sided weakness. She has a remote history of left-sided weakness without residual deficits. She had had a minor fall from bed this morning around 8 AM with no head trauma. She had significant head trauma about 5 or 6 days ago and had nosebleed requiring admission. [facility]. Patient is accompanied by her daughter who is able to give a history. She is a DO NOT RESUSCITATE and would not like aggressive measures. The exact timing of her left-sided weakness onset is unknown but is some time after 8 AM likely around noon today. Making her about 7 hours post onset. Transported by EMS, tachycardic and hypertensive. No measured fever. She is currently being treated for UTI. Upon arrival she has an NIH of 9, with left-sided weakness. She is tachycardic and hypotensive upon arrival. I did discuss goals of care with the patient's daughter and it is made clear that the patient would like supportive measures but no aggressive management. - Related Data Home Medications Medication Instructions Recorded Confirmed Cholecalciferol [Vitamin D3 (25 50 mcg PO BID@0800,159903/09/17 03/01/21 Mcg = 1000 Iu)] Multivitamins, Thera [Multivitamin 1 tab PO DAILY@0800 02/12/20 03/01/21 (formulary)] Atorvastatin [Lipitor] 20 mg PO HS@199902/23/21 03/01/21 Apixaban [Eliquis] 2.5 mg PO BID@0800,159903/01/21 03/01/21 Atenolol [Tenormin] 50 mg PO DAILY@79903/01/21 03/01/21 Cefuroxime Axetil [Ceftin] 500 mg PO BID@0800,159903/01/21 03/01/21 Famotidine [Pepcid] 20 mg PO DAILY@0803/01/21 03/01/21 Fluticasone Propionate [Flovent 1 puff INHALATION RT-BID@0800,159903/01/21 03/01/21 Diskus] Glucosamine HCl/Chondroitin Haines 1 cap PO HS@199903/01/21 03/01/21 [Glucosamine-Chondroitin Cap] Melatonin 3 mg PO HS@199903/01/21 03/01/21 Oxymetazoline HCl [Afrin 0.05%] 2 spr NASAL TID@0800,1200,1800 03/01/21 03/01/21 Verapamil Sr [Isoptin Sr] 180 mg PO HS@199903/01/21 03/01/21 buPROPion XL [Wellbutrin Xl] 150 mg PO DAILY@0800 03/01/21 03/01/21 Allergies Allergy/AdvReac Type Severity Reaction Status Date / Time No Known Allergies Allergy Verified 03/01/21 19:45 Review of Systems ROS Statement: Those systems with pertinent positive or pertinent negative responses have been documented in the HPI. ROS Other: All systems not noted in ROS Statement are negative. Past Medical History Past Medical History: Cancer, COPD, CVA/TIA, Dementia, Hyperlipidemia, Hypertension, Osteoarthritis (OA), Renal Disease, Sleep Apnea/CPAP/BIPAP Additional Past Medical History / Comment(s): Hx breast ca x2 left breast- radiation and chemo 2003 & 2008, bi pap machine , hx of CVA with left side weakness, DJD, hospitalized for UTI & Renal failure related to dehydration. occasional incontinence-wears attends, up with assistance-gait unsteady, speech clear, feeds self- occasional cough when eating, some confusion. 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 left thumb surgery Past Anesthesia/Blood Transfusion Reactions: Unable to Obtain Additional Past Anesthesia/Blood Transfusion Reaction / Comment(s): . Past Psychological History: Depression Smoking Status: Former smoker Past Alcohol Use History: None Reported Past Drug Use History: None Reported - Past Family History Sister(s) Family Medical History: Cancer Additional Family Medical History / Comment(s): 2 sisters had breast ca, one sister had ovarian ca Daughter(s) Family Medical History: Cancer Additional Family Medical History / Comment(s): breast CA General Exam Limitations: physical limitation Course Vital Signs 03/01/21 03/01/21 19:08 19:10 Temperature 97.4 F L 97.4 F L Pulse Rate 146 H 141 H Respiratory 18 20 Rate Blood Pressure 103/81 117/81 O2 Sat by Pulse 89 L 97 Oximetry EKG Findings - EKG Comments: EKG Findings:: EKG: Sinus tachycardia, rate of 143, incomplete right bundle branch block, rate of 140, QRS duration 112, QTC 435, no ST segment elevation. ST segment depression in the precordial leads. Medical Decision Making - Medical Decision Making 80-year-old female presenting with confusion, dysarthria, left-sided weakness. Remote history of previous CVA affecting the left side which according to the daughter did not leave any residual weakness. Patient recent fall and recent admission. I did perform CT which was negative for intracranial hemorrhage, no acute findings. Chest x-rays negative for focal pneumonia. She has a significant leukocytosis at 24.0 which was present at the time of discharge. She was being treated for urinary tract infection on oral antibiotics. She has a hypernatremia 147, she is uremic and acidotic with a CO2 of 16 and creatinine 1.78. Lactic acid is normal at 1.9. Urinalysis and urine culture are pending. Blood cultures pending. Patient's blood pressure does respond to fluids. I did discuss case with Dr. pandya who will admit. With both infectious disease and neurology on consult. She started on IV antibiotics and IV fluids while in the emergency department. suspected CVA and left-sided weakness on Eliquis - Lab Data Result diagrams: 03/01/21 19:17 03/01/21 19:17 Lab Results 03/01/21 03/01/21 03/01/21 Range/Units 19:04 19:17 19:17 WBC 24.0 H (3.8-10.6) k/uL RBC 4.13 (3.80-5.40) m/uL Hgb 12.9 (11.4-16.0) gm/dL Hct 37.6 (34.0-46.0) % MCV 91.1 (80.0-100.0) fL MCH 31.2 (25.0-35.0) pg MCHC 34.3 (31.0-37.0) g/dL RDW 14.0 (11.5-15.5) % Plt Count 544 H (150-450) k/uL MPV 8.3 Neutrophils % 75 % Lymphocytes % 13 % Monocytes % 9 % Eosinophils % 1 % Basophils % 1 % Neutrophils # 18.0 H (1.3-7.7) k/uL Lymphocytes # 3.0 (1.0-4.8) k/uL Monocytes # 2.2 H (0-1.0) k/uL Eosinophils # 0.2 (0-0.7) k/uL Basophils # 0.2 (0-0.2) k/uL Poikilocytosis Slight PT 11.6 (9.0-12.0) sec INR 1.1 (<1.2) APTT 22.3 (22.0-30.0) sec Sodium (137-145) mmol/L Potassium (3.5-5.1) mmol/L Chloride (98-107) mmol/L Carbon Dioxide (22-30) mmol/L Anion Gap mmol/L BUN (7-17) mg/dL Creatinine (0.52-1.04) mg/dL Est GFR (CKD-EPI)AfAm (>60 ml/min/1.73 sqM) Est GFR (CKD-EPI)NonAf (>60 ml/min/1.73 sqM) Glucose (74-99) mg/dL POC Glucose (mg/dL) 146 H (75-99) mg/dL POC Glu Gericare Aide ID Luis Daniel Amos Plasma Lactic Acid Lex (0.7-2.0) mmol/L Calcium (8.4-10.2) mg/dL Total Bilirubin (0.2-1.3) mg/dL AST (14-36) U/L ALT (4-34) U/L Alkaline Phosphatase (38-126) U/L Troponin I (0.000-0.034) ng/mL Total Protein (6.3-8.2) g/dL Albumin (3.5-5.0) g/dL 03/01/21 03/01/21 03/01/21 Range/Units 19:17 19:17 19:49 WBC (3.8-10.6) k/uL RBC (3.80-5.40) m/uL Hgb (11.4-16.0) gm/dL Hct (34.0-46.0) % MCV (80.0-100.0) fL MCH (25.0-35.0) pg MCHC (31.0-37.0) g/dL RDW (11.5-15.5) % Plt Count (150-450) k/uL MPV Neutrophils % % Lymphocytes % % Monocytes % % Eosinophils % % Basophils % % Neutrophils # (1.3-7.7) k/uL Lymphocytes # (1.0-4.8) k/uL Monocytes # (0-1.0) k/uL Eosinophils # (0-0.7) k/uL Basophils # (0-0.2) k/uL Poikilocytosis PT (9.0-12.0) sec INR (<1.2) APTT (22.0-30.0) sec Sodium 147 H (137-145) mmol/L Potassium 4.2 (3.5-5.1) mmol/L Chloride 118 H (98-107) mmol/L Carbon Dioxide 16 L (22-30) mmol/L Anion Gap 13 mmol/L BUN 61 H (7-17) mg/dL Creatinine 1.78 H (0.52-1.04) mg/dL Est GFR (CKD-EPI)AfAm 31 (>60 ml/min/1.73 sqM) Est GFR (CKD-EPI)NonAf 27 (>60 ml/min/1.73 sqM) Glucose 149 H (74-99) mg/dL POC Glucose (mg/dL) (75-99) mg/dL POC Glu Gericare Aide ID Plasma Lactic Acid Lex 1.9 (0.7-2.0) mmol/L Calcium 10.2 (8.4-10.2) mg/dL Total Bilirubin 0.4 (0.2-1.3) mg/dL AST 27 (14-36) U/L ALT 17 (4-34) U/L Alkaline Phosphatase 108 (38-126) U/L Troponin I 0.021 (0.000-0.034) ng/mL Total Protein 6.8 (6.3-8.2) g/dL Albumin 3.8 (3.5-5.0) g/dL Disposition Clinical Impression: Cerebrovascular accident (CVA), Dehydration, UTI (urinary tract infection), Weakness Disposition: ADMITTED IP TO THIS HOSP Condition: Serious Is patient prescribed a controlled substance at d/c from ED?: No Referrals: Viktor Walter DO [Primary Care Provider] - 1-2 days Decision to Admit Reason: Admit from EC Decision Date: 03/01/21 Decision Time: 20:29
[2021-03-01 19:45] LABS: INR 1.1 (<1.2); Partial Thromboplastin Time 22.3 sec (22.0-30.0); Prothrombin Time 11.6 sec (9.0-12.0)
[2021-03-01] MEDS: cefTRIAXone IN SWFI 1,000 MG/10 ML SYRINGE IVP SCH ×2 (19:50→20:05)
--- NOTE | 2021-03-01 19:52 | CT ---
EXAMINATION TYPE: CT brain wo con DATE OF EXAM: 03/01/2021 COMPARISON: 02/24/2021 HISTORY: LT side weakness, deficit. Stroke suspected CT DLP: 1269.4 mGycm Automated exposure control for dose reduction was used. Exam performed with no contrast. There is moderate hypodensity in the periventricular white matter. There is no mass effect nor midlin e shift. There is no sign of intracranial hemorrhage. There is large midline frontal scalp hematoma. The calvarium is intact. There is diffuse cerebral atrophy. IMPRESSION: Cerebral atrophy and chronic small vessel ischemia. No acute intracranial abnormality. Stable large f rontal scalp hematoma.
[2021-03-01 19:55] LABS: Albumin 3.8 g/dL (3.5-5.0); Calcium 10.2 mg/dL (8.4-10.2); Potassium 4.2 mmol/L (3.5-5.1); Total Bilirubin 0.4 mg/dL (0.2-1.3); Total Protein 6.8 g/dL (6.3-8.2)
[2021-03-01] MEDS: SODIUM CHLORIDE 0.9% 1,000 ML IV SCH (19:55)
--- NOTE | 2021-03-01 20:07 | XR ---
EXAMINATION TYPE: XR chest 1V DATE OF EXAM: 03/01/2021 COMPARISON: 07/24/2020 HISTORY: Altered mental status TECHNIQUE: FINDINGS: There is no heart failure nor confluent pneumonic infiltrate. Costophrenic angles are fairl y clear. There are chest leads. There is right shoulder prosthesis. IMPRESSION: No active cardiopulmonary disease. No change.
[2021-03-01] MEDS ORDERED: ASPIRIN 325 MG TAB PO STA (20:25)
[2021-03-01] MEDS ORDERED: ACETAMINOPHEN TAB 325 MG TAB PO PRN (20:25)
[2021-03-01] MEDS ORDERED: NALOXONE 0.4 MG/ML 1 ML VIAL IV PRN (20:25)
[2021-03-01 20:42] LABS: Appearance,Urine Clear (Clear); Bilirubin,Urine Negative (Negative); Blood,Urine Negative (Negative); Color,Urine Yellow; Glucose,Urine (UA) Negative (Negative); Ketones,Urine Negative (Negative); Leukocyte Esterase,Urine Negative (Negative); Nitrite,Urine Negative (Negative); PH, Urine 5.5 (5.0-8.0); Protein,Urine Trace (Negative); Specific Gravity,Urine 1.023 (1.001-1.035); Urobilinogen,Urine <2.0 mg/dL (<2.0)
[2021-03-01] MEDS ORDERED: DILTIAZEM DRIP BOLUS FROM BAG 1 MG SOLN IV ONE (21:07)
[2021-03-01] MEDS: DILTIAZEM 125 MG in SODIUM CHLORIDE 0.9% 100 ML IV SCH (21:32)
[2021-03-02] MEDS: SODIUM CHLORIDE 0.9% 1,000 ML IV SCH ×2 (05:45→08:41)
[2021-03-02] MEDS ORDERED: SODIUM CHLORIDE 0.9% 1,000 ML IV ONE (08:03)
[2021-03-02] MEDS: DILTIAZEM 125 MG in SODIUM CHLORIDE 0.9% 100 ML IV SCH ×2 (08:41→21:23)
--- NOTE | 2021-03-02 12:22 | P.CNNES ---
History of Present Illness Consult date: 03/02/21 Requesting physician: Sonny Domingo Reason for Consult: CVA, altered mental status History of Present Illness: This is a tele-neurology consultation performed today on 03/02/2021. Patient is a 80-year-old female came to the hospital yesterday at 5:02 PM by ambulance. As per EMS flow sheet, when they arrived at the [facility], patient was laying in the bed. Staff has mentioned that patient had a fall earlier this week, and was admitted to the hospital on 02/23/2021 after hitting her head. Patient has significant facial bruising, racoon eyes present. She subsequently developed nosebleeds. Patient was discharged earlier yesterday morning morning and returned to [facility]. Nurse states that she came in this evening to find patient with strokelike symptoms. Patient was acting funny at lunch but did not report to any nurses. Unknown exact onset of time. Patient has left sided weakness, arm leg drift and slurred speech. Patient was alert and oriented 1, GCS of 12 and unable to answer questions appropriately. Staff mentions that patient does have history of dementia but is able to carry conversation, and this is not her normal baseline. Patient is complaining of a headache on also tried blood noted to her hair. Patient's blood pressure was 123/86, pulse rate 138, saturation 94%. Her NIH stroke scale reported in the ER was 9 with left- sided weakness. Patient's vital signs on arrival 103/81, pulse rate 146, temperature 97.4. Computed tomography scan of head revealed cerebral atrophy and chronic small vessel ischemia. No acute intracranial abnormality. Stable large frontal scalp hematoma. Chest x-ray showed no active cardiopulmonary disease. EKG shows sinus tachycardia with incomplete right bundle branch block. Blood tests shows WBC 24.0, hemoglobin 12.9, platelets 544. PT/PTT normal, sodium 147 potassium 4.2, BUN 61, creatinine 1.78. Hepatic panel normal. Troponin negative UA negative. C. diff negative. Patient's last hemoglobin A1c 5.1 on 04/30/2020. Her total cholesterol 153, LDL 95, HDL 33 and triglycerides 122 on 08/08/2020. B12 564, folate 21.1, B6 was 8. Patient's home medications include Lipitor 20 mg, Wellbutrin 151 g, atenolol 50 mg, verapamil 180 mg and Apixaban 2.5 mg twice a day. Patient has remote history of left-sided weakness without residual deficits. Patient is a DO NOT RESUSCITATE, and the family does not want her to have any aggressive treatments. The last known well was felt to be sometimes after 8 AM likely around noon on the day of admission. Patient states that she lives by herself. Kids used to live now they are adult and out. Patient admits that her children keep a close watch on her. 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 Review of Systems Patient agrees of significant bruises, bilateral knee pain. Denies any headache at this time. Denies any problem with the vision. Patient denies any abdominal pain nausea vomiting diarrhea. Patient does have memory loss. Other review of systems reviewed and noncontributory. Past Medical History Past Medical History: Cancer, COPD, CVA/TIA, Dementia, Hyperlipidemia, Hypertension, Osteoarthritis (OA), Renal Disease, Sleep Apnea/CPAP/BIPAP Additional Past Medical History / Comment(s): Hx breast ca x2 left breast- radiation and chemo 2003 & 2008, bi pap machine , hx of CVA with left side weakness, DJD, hospitalized for UTI & Renal failure related to dehydration. occasional incontinence-wears attends, up with assistance-gait unsteady, speech clear, feeds self- occasional cough when eating, some confusion. 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 left thumb surgery Past Anesthesia/Blood Transfusion Reactions: Unable to Obtain Additional Past Anesthesia/Blood Transfusion Reaction / Comment(s): . Past Psychological History: Depression Smoking Status: Former smoker Past Alcohol Use History: None Reported Additional Past Alcohol Use History / Comment(s): smoked 1ppd from age 17 Past Drug Use History: None Reported - Past Family History Sister(s) Family Medical History: Cancer Additional Family Medical History / Comment(s): 2 sisters had breast ca, one sister had ovarian ca Daughter(s) Family Medical History: Cancer Additional Family Medical History / Comment(s): breast CA Medications and Allergies Home Medications Medication Instructions Recorded Confirmed Type Cholecalciferol [Vitamin D3 (25 50 mcg PO BID@0800,1600 03/09/17 03/01/21 History Mcg = 1000 Iu)] Multivitamins, Thera [Multivitamin 1 tab PO DAILY@0800 02/12/20 03/01/21 History (formulary)] Atorvastatin [Lipitor] 20 mg PO HS@199902/23/21 03/01/21 History Apixaban [Eliquis] 2.5 mg PO BID@0800,1600 03/01/21 03/01/21 History Atenolol [Tenormin] 50 mg PO DAILY@0800 03/01/21 03/01/21 History Cefuroxime Axetil [Ceftin] 500 mg PO BID@0800,1600 03/01/21 03/01/21 History Famotidine [Pepcid] 20 mg PO DAILY@0803/01/21 03/01/21 History Fluticasone Propionate [Flovent 1 puff INHALATION RT-BID@0800,1600 03/01/21 03/01/21 History Diskus] Glucosamine HCl/Chondroitin Haines 1 cap PO HS@199903/01/21 03/01/21 History [Glucosamine-Chondroitin Cap] Melatonin 3 mg PO HS@199903/01/21 03/01/21 History Oxymetazoline HCl [Afrin 0.05%] 2 spr NASAL TID@0800,1200,1800 03/01/21 03/01/21 History Verapamil Sr [Isoptin Sr] 180 mg PO HS@199903/01/21 03/01/21 History buPROPion XL [Wellbutrin Xl] 150 mg PO DAILY@0803/01/21 03/01/21 History Allergies Allergy/AdvReac Type Severity Reaction Status Date / Time No Known Allergies Allergy Verified 03/01/21 19:45 Physical Examination - Vital Signs Vital Signs: Vital Signs Temp Pulse Pulse Resp BP BP Pulse Ox 03/02/21 04:00 97.6 F 138 H 18 100/74 99 03/02/21 00:00 130 H 18 119/78 94 L 03/01/21 22:18 18 03/01/21 22:06 97.5 F L 138 H 18 104/73 96 03/01/21 21:20 140 H 20 116/86 100 03/01/21 21:00 140 H 20 119/94 100 03/01/21 20:40 140 H 22 125/84 100 03/01/21 20:20 140 H 20 105/57 100 03/01/21 20:00 140 H 20 136/99 100 03/01/21 19:40 140 H 24 70/55 100 03/01/21 19:25 97.5 F L 140 H 22 103/79 99 03/01/21 19:10 97.4 F L 141 H 20 117/81 97 03/01/21 19:08 97.4 F L 146 H 18 103/81 89 L Intake and Output 03/01/21 03/02/21 03/02/21 22:59 06:59 14:59 Intake Total 295.75 Output Total 400 Balance -400 295.75 Intake: Intake, IV Titration 55.75 Amount Diltiazem 125 mg In 55.75 Sodium Chloride 0.9% 100 ml @ 5 MG/HR 5 mls/hr IV .Q24H [facility] Rx#:[id number] Oral 240 Output: Urine 400 Other: Voiding Method Indwelling Catheter Indwelling Catheter # Bowel Movements 1 2 Weight 83.506 kg 79.5 kg Patient is an elderly female, in no acute distress. Patient has raccoon eyes. Patient is alert awake. Patient knows her name that she is in [facility] in [place]. She thinks it's a fall season, could not tell the current month and things images year 2019. Speech and language functions are normal. Attention, concentration and fund of knowledge is adequate. On cranial examination, pupils are round and reacting to light, visual lance are full on confrontation, extraocular muscles are intact with no nystagmus. Face is symmetric, tongue protrudes to the midline. Palatal elevation and sensa tion normal, hearing and shoulder shrug normal, facial sensation normal. Shoulder shrug normal. On muscle strength testing, there is left pronator drift. Muscle strength shows information coder are equal. Biceps 5/4, triceps 5/4. In the lower extremities knees could not be checked because of severe bruise. Her ankle dorsiflexion is 5/5-. Left hip flexion has drift whereas she was able to hold her right leg up off the bed. Deep tendon reflexes are (R/L) biceps 2/2, brachioradialis 1/0, knees not aditi cked, ankle 1/1, plantar is downgoing on the right, upon left. Sensory to touch is equal with no neglect. Cerebellar function showed ataxia for [id number] testing on the left. Tone and bulk of muscles normal. Gait normal. On general examination, there is no carotid bruit or murmur, S1-S2 audible. Abdomen is soft nontender. Chest is clear. Peripheral pulses are present. No edema. Results - Laboratory Findings CBC and BMP: 03/01/21 19:17 03/01/21 19:17 Abnormal Lab Findings: Abnormal Labs 03/01/21 03/01/21 03/01/21 19:04 19:17 19:17 WBC 24.0 H Plt Count 544 H Neutrophils # 18.0 H Monocytes # 2.2 H Sodium 147 H Chloride 118 H Carbon Dioxide 16 L BUN 61 H Creatinine 1.78 H Glucose 149 H POC Glucose (mg/dL) 146 H Magnesium Urine Protein 03/01/21 03/01/21 19:17 20:17 WBC Plt Count Neutrophils # Monocytes # Sodium Chloride Carbon Dioxide BUN Creatinine Glucose POC Glucose (mg/dL) Magnesium 2.9 H Urine Protein Trace H Assessment and Plan Assessment: * Possible acute CVA with left-sided weakness. Patient has history CVA (right centrum semiovale on 02/13/2020) involving the left side of the body, but albin arently there were no residual deficits. * Recent history of fall on 02/23/2021 with raccoon eyes. * Hypertension * Hyperlipidemia * Dementia * History of atrial flutter, on long-term anticoagulation. * History of breast cancer Plan: * Carotid Doppler * Continue Eliquis 2.5 mg twice a day * Hemoglobin A1c * Lipid panel from 08/08/2020 showed cholesterol 153, LDL 95.6, HDL 33 and triglycerides 122. Continue * Patient's B12 564 on 08/15/2020. * B6 was borderline 8 (5-50). We will start B6 replacement. * Dr. Daniel Eaton Will resume neurology service from the morning.
[2021-03-02] MEDS: buPROPion XL 150 MG TAB.ER.24H PO SCH (13:00)
[2021-03-02] MEDS: APIXABAN 2.5 MG TABLET PO SCH ×2 (13:00→17:54)
[2021-03-02] MEDS: FAMOTIDINE 20 MG TAB PO SCH (13:00)
[2021-03-02] MEDS: atenoloL 50 MG TAB PO SCH (13:00)
[2021-03-02] MEDS: DEXTROSE 5%-0.45% NACL 1,000 ML IV SCH (13:06)
--- NOTE | 2021-03-02 13:08 | US ---
EXAMINATION TYPE: US carotid duplex BILAT DATE OF EXAM: 03/02/2021 COMPARISON: CTA neck 07/24/2020 CLINICAL HISTORY: cva. EXAM MEASUREMENTS: RIGHT: Peak Systolic Velocity (PSV) cm/sec ----- Right CCA: 23.6 ----- Right ICA: 25.3 ----- Right ECA: 31.9 ICA/CCA ratio: 1.1 RIGHT: End Diastole cm/sec ----- Right CCA: 9.6 ----- Right ICA: 14.0 ----- Right ECA: 6.1 LEFT: Peak Systolic Velocity (PSV) cm/sec ----- Left CCA: 34.1 ----- Left ICA: 35.5 ----- Left ECA: 39.9 ICA/CCA ratio: 1.0 LEFT: End Diastole cm/sec ----- Left CCA: 12.7 ----- Left ICA: 18.4 ----- Left ECA: 7.6 VERTEBRALS (direction of flow): Right Vertebral: Antegrade Left Vertebral: Antegrade Rhythm: Arrhythmia, patient has low velocities throughout with tachycardia. No significant stenosis seen. IMPRESSION: 1. No significant hemodynamic stenosis. Intimal thickening and focal areas of atherosclerotic plaque. 2. Cardiac dysrhythmia. NASCET criteria was used in interpretation of this exam? Criteria for Assigning % of Stenosis / Diameter reduction (Estimation based on the indirect measurements of the internal carotid artery velocities (ICA PSV). 1. Normal (no stenosis)=ICA PSV < 125 cm/s: ratio < 2.0: ICA EDV<40 cm/s. 2. Less than 50% stenosis=ICA PSV < 125 cm/s: ratio < 2.0: ICA EDV<40 cm/s. 3. 50 to 69% stenosis=ICA PSV of 125 to 230 cm/s: ration 2.0 ? 4.0: ICA EDV 40-100 cm/s. 4. Greater than 70% stenosis to near occlusion= ICA PSV > 230 cm/s: ratio > 4.0: ICA EDV > 100 cm/s. 5. Near occlusion= ICA PSV velocities may be low or undetectable: variable ratio and ICA EDV. 6. Total occlusion=unable to detect flow.
[2021-03-02] MEDS ORDERED: IOPAMIDOL CONTRAST (ORAL USE) VIAL PO PRN (17:50)
[2021-03-02] MEDS: PYRIDOXINE 50 MG TAB PO SCH (17:54)
[2021-03-02] MEDS: VERAPAMIL SR 180 MG TABLET.ER PO SCH (17:55)
[2021-03-02] MEDS: FLUTICASONE 44 MCG INHALER INHALATION SCH (18:15)
[2021-03-02] MEDS: ATORVASTATIN 20 MG TAB PO SCH (20:54)
[2021-03-02] MEDS: MELATONIN 3 MG TABLET PO SCH (20:54)
[2021-03-03] MEDS: DEXTROSE 5%-0.45% NACL 1,000 ML IV SCH ×2 (00:18→13:51)
--- NOTE | 2021-03-03 02:31 | P.HPIM ---
History of Present Illness H&P Date: 03/02/21 Chief Complaint: Altered mental status Patient is a 80-year-old female with a known history of CVA with left-sided weakness, dementia, hypertension, hyperlipidemia, COPD, obstructive sleep apnea and history of breast cancer status post chemo and radiation, depression and pre vious history of smoking who is currently living at group home was brought to the hospital due to altered mental status. Patient was recently admitted to hospital status post fall after hitting her head. Patient did have extensive bruising on the face and around the eyes. Patient was also having nosebleed which was packed initially and was removed. No active bleeding was noted. Hemoglobin has been stable. Patient was also found to have tachycardia, atrial flutter and was started on verapamil dose increased. Continue on metoprolol. Patient is also on anticoagulation in the form of Eliquis. Patient also developed urinary tract infection and was discharged back to group home with antibiotic course. Patient was sent back to hospital yesterday evening due to staff found that she was having strokelike symptoms. Somewhat poor historian. Denied any complaints of chest pain or worsening shortness of breath. No fever no chills. Denies any palpitations. On admission patient was still tachycardic and was started on Cardizem drip. CT head showed cerebral atrophy and chronic small ischemia. No acute intracranial abnormality. Stable large frontal scalp hematoma. Chest x-ray showed no acute cardiopulmonary disease. Laboratory data showed WBC 24.0 hemoglobin 12.9 and platelets 544 sodium 147 potassium 4.2 chloride 118 bicarb is 16, BUN 61 and creatinine 1.78 UA negative for infection Review of Systems Complete review of systems could not be obtained from the patient except as per HPI Past Medical History Past Medical History: Cancer, COPD, CVA/TIA, Dementia, Hyperlipidemia, Hypertension, Osteoarthritis (OA), Renal Disease, Sleep Apnea/CPAP/BIPAP Additional Past Medical History / Comment(s): Hx breast ca x2 left breast- radiation and chemo 2003 & 2009, bi pap machine , hx of CVA with left side weakness, DJD, hospitalized for UTI & Renal failure related to dehydration. occasional incontinence-wears attends, up with assistance-gait unsteady, speech clear, feeds self- occasional cough when eating, some confusion. 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 left thumb surgery Past Anesthesia/Blood Transfusion Reactions: Unable to Obtain Additional Past Anesthesia/Blood Transfusion Reaction / Comment(s): . Past Psychological History: Depression Smoking Status: Former smoker Past Alcohol Use History: None Reported Additional Past Alcohol Use History / Comment(s): smoked 1ppd from age 17 Past Drug Use History: None Reported - Past Family History Sister(s) Family Medical History: Cancer Additional Family Medical History / Comment(s): 2 sisters had breast ca, one sister had ovarian ca Daughter(s) Family Medical History: Cancer Additional Family Medical History / Comment(s): breast CA Medications and Allergies Home Medications Medication Instructions Recorded Confirmed Type Cholecalciferol [Vitamin D3 (25 50 mcg PO BID@0800,159903/09/17 03/01/21 History Mcg = 1000 Iu)] Multivitamins, Thera [Multivitamin 1 tab PO DAILY@0800 02/12/20 03/01/21 History (formulary)] Atorvastatin [Lipitor] 20 mg PO HS@199902/23/21 03/01/21 History Apixaban [Eliquis] 2.5 mg PO BID@0800,159903/01/21 03/01/21 History Atenolol [Tenormin] 50 mg PO DAILY@0800 03/01/21 03/01/21 History Cefuroxime Axetil [Ceftin] 500 mg PO BID@0800,1600 03/01/21 03/01/21 History Famotidine [Pepcid] 20 mg PO DAILY@0800 03/01/21 03/01/21 History Fluticasone Propionate [Flovent 1 puff INHALATION RT-BID@0800,1600 03/01/21 03/01/21 History Diskus] Glucosamine HCl/Chondroitin Haines 1 cap PO HS@199903/01/21 03/01/21 History [Glucosamine-Chondroitin Cap] Melatonin 3 mg PO HS@199903/01/21 03/01/21 History Oxymetazoline HCl [Afrin 0.05%] 2 spr NASAL TID@0800,1200,1800 03/01/21 03/01/21 History Verapamil Sr [Isoptin Sr] 180 mg PO HS@2000 03/01/21 03/01/21 History buPROPion XL [Wellbutrin Xl] 150 mg PO DAILY@0800 03/01/21 03/01/21 History Allergies Allergy/AdvReac Type Severity Reaction Status Date / Time No Known Allergies Allergy Verified 03/01/21 19:45 Physical Exam Vitals: Vital Signs Temp Pulse Pulse Resp BP BP Pulse Ox 03/02/21 04:00 97.6 F 138 H 18 100/74 99 03/02/21 00:00 130 H 18 119/78 94 L 03/01/21 22:18 18 03/01/21 22:06 97.5 F L 138 H 18 104/73 96 03/01/21 21:20 140 H 20 116/86 100 03/01/21 21:00 140 H 20 119/94 100 03/01/21 20:40 140 H 22 125/84 100 03/01/21 20:20 140 H 20 105/57 100 03/01/21 20:00 140 H 20 136/99 100 03/01/21 19:40 140 H 24 70/55 100 03/01/21 19:25 97.5 F L 140 H 22 103/79 99 03/01/21 19:10 97.4 F L 141 H 20 117/81 97 03/01/21 19:08 97.4 F L 146 H 18 103/81 89 L Intake and Output 03/01/21 03/02/21 03/02/21 22:59 06:59 14:59 Intake Total 295.75 Output Total 400 Balance -400 295.75 Intake: Intake, IV Titration 55.75 Amount Diltiazem 125 mg In 55.75 Sodium Chloride 0.9% 100 ml @ 5 MG/HR 5 mls/hr IV .Q24H [facility] Rx#:[id number] Oral 240 Output: Urine 400 Other: Voiding Method Indwelling Catheter Indwelling Catheter # Bowel Movements 1 2 Weight 83.506 kg 79.5 kg PHYSICAL EXAMINATION: Patient is lying in the bed comfortably, no acute distress, awake alert and oriented x1-2.. HEENT: Normocephalic. Neck is supple. Pupils reactive. Nostrils clear. Oral cavity is moist. Patient does have frontal hematoma. Ecchymosis around the eyes. Multiple bruising areas of the head. Neck reveals no JVD, carotid bruits, or thyromegaly. CHEST EXAMINATION: Trachea is central. Symmetrical expansion. Lung lance clear to auscultation and percussion. CARDIAC: Normal S1, S2 with no gallops. No murmurs ABDOMEN: Soft. Bowel sounds normal. No organomegaly. No abdominal bruits. Extremities: reveal no edema. No clubbing or cyanosis Neurologically awake, alert, oriented x1-2 . left sided wekaness Skin: No rash or skin lesions. Psychiatric: Coperative. Musculoskeletal: No joint swelling or deformity. Results CBC & Chem 7: 03/01/21 19:17 03/01/21 19:17 Labs: Abnormal Lab Results - Last 24 Hours (Table) 03/01/21 03/01/21 03/01/21 Range/Units 19:04 19:17 19:17 WBC 24.0 H (3.8-10.6) k/uL Plt Count 544 H (150-450) k/uL Neutrophils # 18.0 H (1.3-7.7) k/uL Monocytes # 2.2 H (0-1.0) k/uL Sodium 147 H (137-145) mmol/L Chloride 118 H (98-107) mmol/L Carbon Dioxide 16 L (22-30) mmol/L BUN 61 H (7-17) mg/dL Creatinine 1.78 H (0.52-1.04) mg/dL Glucose 149 H (74-99) mg/dL POC Glucose (mg/dL) 146 H (75-99) mg/dL Magnesium (1.6-2.3) mg/dL Urine Protein (Negative) 03/01/21 03/01/21 Range/Units 19:17 20:17 WBC (3.8-10.6) k/uL Plt Count (150-450) k/uL Neutrophils # (1.3-7.7) k/uL Monocytes # (0-1.0) k/uL Sodium (137-145) mmol/L Chloride (98-107) mmol/L Carbon Dioxide (22-30) mmol/L BUN (7-17) mg/dL Creatinine (0.52-1.04) mg/dL Glucose (74-99) mg/dL POC Glucose (mg/dL) (75-99) mg/dL Magnesium 2.9 H (1.6-2.3) mg/dL Urine Protein Trace H (Negative) Thrombosis Risk Factor Assmnt - DVT/VTE Prophylaxis DVT/VTE Prophylaxis: Pharmacologic Prophylaxis ordered - Choose All That Apply Any of the Below Risk Factors Present?: No Other Risk Factors: No Other congenital or acquired thrombophilia - If yes, enter type in comment: No Each Risk Factor Represents 5 Points: Stroke (< 1 month) Thrombosis Risk Factor Assessment Total Risk Factor Score: 5 Thrombosis Risk Factor Assessment Level: High Risk Assessment and Plan Assessment: Altered mental status possible metabolic encephalopathy. Rule out acute CVA. Atrial flutter with variable block recent fall with frontal hematoma and [place] eyes Acute kidney injury likely prerenal azotemia, Recent Nosebleed status post nasal packing, resolved Atrial flutter with variable block Recent urinary tract infection with culture showing E. colion 02/23/21 History of CVA with left-sided weakness Hypertension Hyperlipidemia Obstructive sleep apnea COPD Prior history of smoking History of breast cancer x2 left breast status post radiation and chemo Degenerative joint disease Depression DVT prophylaxis No code Plan: Patient will be continued on telemetry monitoring. Continue with Cardizem drip for heart rate control. Continue with IV hydration with D5 half-normal saline due to hypernatremia. Continue with Xarelto, atenolol and verapamil. Neurology and cardiology was consulted. Monitor CBC and BMP. Prognosis guarded with multiple medical problems and comorbid conditions. Time with Patient: Greater than 30
--- NOTE | 2021-03-03 08:01 | P.CONS ---
History of Present Illness - Reason for Consult Consult date: 03/02/21 UTI Requesting physician: Octavio E Sheet - Chief Complaint Mental status changes X 1 day - History of Present Illness Patient is a 80-year female who was recently admitted at this facility after apparently the patient did have a fall and did have a significant bruising to the face and did have a nosebleed requiring admission to the hospital patient did have elevated white count on that admission did have a positive UA with urine cultures came positive with an E. coli for the patient was treated with Rocephin the patient was discharged back to the assisted on 2021-02-28 patient was brought back within 24-hour with concern for mental status changes slurred speech and left-sided weakness patient was noticed to be tachycardic and hypertensive and the patient has been admitted to hospital for possible CVA on presentation to the hospital patient was afebrile and no fever has been recorded subsequently patient did have a white count of 24,000 with a left shift BUN/creatinine is mildly elevated liver enzymes are normal urine is negative stool for C. difficile which came back negative blood cultures are currently pending patient did have a chest x-ray no active cardiopulmonary disease infectious disease was consulted for possible UTI and elevated white count patient overall is not a good historian however when asked specifically denies significant headache chest pain shortness of breath or cough no abdominal pain. Review of Systems ROS unobtainable: due to mental status Past Medical History Past Medical History: Cancer, COPD, CVA/TIA, Dementia, Hyperlipidemia, Hypertension, Osteoarthritis (OA), Renal Disease, Sleep Apnea/CPAP/BIPAP Additional Past Medical History / Comment(s): Hx breast ca x2 left breast- radiation and chemo 2003 & 2008, bi pap machine , hx of CVA with left side weakness, DJD, hospitalized for UTI & Renal failure related to dehydration. occasional incontinence-wears attends, up with assistance-gait unsteady, speech clear, feeds self- occasional cough when eating, some confusion. 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 left thumb surgery Past Anesthesia/Blood Transfusion Reactions: Unable to Obtain Additional Past Anesthesia/Blood Transfusion Reaction / Comm: . Past Psychological History: Depression Smoking Status: Former smoker Past Alcohol Use History: None Reported Additional Past Alcohol Use History / Comment(s): smoked 1ppd from age 17 Past Drug Use History: None Reported - Past Family History Sister(s) Family Medical History: Cancer Additional Family Medical History / Comment(s): 2 sisters had breast ca, one sister had ovarian ca Daughter(s) Family Medical History: Cancer Additional Family Medical History / Comment(s): breast CA Medications and Allergies Home Medications Medication Instructions Recorded Confirmed Type Cholecalciferol [Vitamin D3 (25 50 mcg PO BID@0800,159903/09/17 03/01/21 History Mcg = 1000 Iu)] Multivitamins, Thera [Multivitamin 1 tab PO DAILY@0800 02/12/20 03/01/21 History (formulary)] Atorvastatin [Lipitor] 20 mg PO HS@199902/23/21 03/01/21 History Apixaban [Eliquis] 2.5 mg PO BID@0800,159903/01/21 03/01/21 History Atenolol [Tenormin] 50 mg PO DAILY@0803/01/21 03/01/21 History Cefuroxime Axetil [Ceftin] 500 mg PO BID@0800,1600 03/01/21 03/01/21 History Famotidine [Pepcid] 20 mg PO DAILY@0803/01/21 03/01/21 History Fluticasone Propionate [Flovent 1 puff INHALATION RT-BID@0800,1600 03/01/21 03/01/21 History Diskus] Glucosamine HCl/Chondroitin Haines 1 cap PO HS@199903/01/21 03/01/21 History [Glucosamine-Chondroitin Cap] Melatonin 3 mg PO HS@199903/01/21 03/01/21 History Oxymetazoline HCl [Afrin 0.05%] 2 spr NASAL TID@0800,1200,1800 03/01/21 03/01/21 History Verapamil Sr [Isoptin Sr] 180 mg PO HS@199903/01/21 03/01/21 History buPROPion XL [Wellbutrin Xl] 150 mg PO DAILY@0800 03/01/21 03/01/21 History Allergies Allergy/AdvReac Type Severity Reaction Status Date / Time No Known Allergies Allergy Verified 03/01/21 19:45 Physical Exam Vitals: Vital Signs Temp Pulse Pulse Resp BP BP Pulse Ox 03/02/21 11:35 97.8 F 144 H 18 109/79 94 L 03/02/21 08:20 97.9 F 146 H 16 108/65 99 03/02/21 04:00 97.6 F 138 H 18 100/74 99 03/02/21 00:00 130 H 18 119/78 94 L 03/01/21 22:18 18 03/01/21 22:06 97.5 F L 138 H 18 104/73 96 03/01/21 21:20 140 H 20 116/86 100 03/01/21 21:00 140 H 20 119/94 100 03/01/21 20:40 140 H 22 125/84 100 03/01/21 20:20 140 H 20 105/57 100 03/01/21 20:00 140 H 20 136/99 100 03/01/21 19:40 140 H 24 70/55 100 03/01/21 19:25 97.5 F L 140 H 22 103/79 99 03/01/21 19:10 97.4 F L 141 H 20 117/81 97 03/01/21 19:08 97.4 F L 146 H 18 103/81 89 L Intake and Output 03/02/21 03/02/21 03/02/21 06:59 14:59 22:59 Intake Total 535.75 Output Total 400 Balance -400 535.75 Intake: Intake, IV Titration 55.75 Amount Diltiazem 125 mg In 55.75 Sodium Chloride 0.9% 100 ml @ 5 MG/HR 5 mls/hr IV .Q24H [facility] Rx#:[id number] Oral 480 Output: Urine 400 Other: Voiding Method Indwelling Catheter Indwelling Catheter # Bowel Movements 2 Weight 79.5 kg GENERAL DESCRIPTION: An elderly lying in bed, no distress. No tachypnea or accessory muscle of respiration use. HEENT: Shows Pallor , no scleral icterus. Oral mucous membrane is dry. No pharyngeal erythema or thrush NECK: Trachea central, no thyromegaly. LUNGS: Unlabored breathing. Clear to auscultation anteriorly. No wheeze or crackle. HEART: S1, S2, regular rate and rhythm. No loud murmur ABDOMEN: Soft, no tenderness , guarding or rigidity, no organomegaly EXTREMITIES: No edema of feet. SKIN: No rash, no masses palpable. multiple bruises especially to the forehead area NEUROLOGICAL: The patient is awake, alert, oriented x1, mood and affect normal. Results CBC & Chem 7: 03/01/21 19:17 03/01/21 19:17 Labs: Abnormal Lab Results - Last 24 Hours (Table) 03/01/21 03/01/21 03/01/21 Range/Units 19:04 19:17 19:17 WBC 24.0 H (3.8-10.6) k/uL Plt Count 544 H (150-450) k/uL Neutrophils # 18.0 H (1.3-7.7) k/uL Monocytes # 2.2 H (0-1.0) k/uL Sodium 147 H (137-145) mmol/L Chloride 118 H (98-107) mmol/L Carbon Dioxide 16 L (22-30) mmol/L BUN 61 H (7-17) mg/dL Creatinine 1.78 H (0.52-1.04) mg/dL Glucose 149 H (74-99) mg/dL POC Glucose (mg/dL) 146 H (75-99) mg/dL Magnesium (1.6-2.3) mg/dL Urine Protein (Negative) 03/01/21 03/01/21 Range/Units 19:17 20:17 WBC (3.8-10.6) k/uL Plt Count (150-450) k/uL Neutrophils # (1.3-7.7) k/uL Monocytes # (0-1.0) k/uL Sodium (137-145) mmol/L Chloride (98-107) mmol/L Carbon Dioxide (22-30) mmol/L BUN (7-17) mg/dL Creatinine (0.52-1.04) mg/dL Glucose (74-99) mg/dL POC Glucose (mg/dL) (75-99) mg/dL Magnesium 2.9 H (1.6-2.3) mg/dL Urine Protein Trace H (Negative) Assessment and Plan Assessment: 1-patient with elevated white count of 24,000 and this patient admitted to the hospital with mental status changes some left-sided weakness and concern for CVA with a recent fall and trauma to the forehead and significant bruising and did have a nasal bleed in this patient who was recently treated for a UTI however UA this admission is clear chest x-ray was negative for any infiltrate suggestive of pneumonia abdominal soft no evidence of any cellulitis did have significant bruising to the forehead area Plan: 1-we will obtain a CT of abdominal pelvis with oral contrast only to rule out any intra-abdominal source for this elevated white count 2-we will check CRP procalcitonin lactic acid level 3-hold on the systemic antibiotic therapy as no obvious focus of infection We will follow on clinical condition and cultures to further adjust medication if needed Thank you for this consultation we will follow the patient along with you Time with Patient: Greater than 30
[2021-03-03 08:09] LABS: Basophils # (A) 0.1 k/uL (0-0.2); Basophils % (A) 0 %; Eosinophils # (A) 0.4 k/uL (0-0.7); Eosinophils % (A) 2 %; HCT 28.1 % (34.0-46.0); Lymphocytes # (A) 2.6 k/uL (1.0-4.8); Lymphocytes % (A) 15 %; MCHC 35.6 g/dL (31.0-37.0); MCV 92.6 fL (80.0-100.0); Mean Platelet Volume 8.6; Monocytes # (A) 1.4 k/uL (0-1.0); Monocytes % (A) 8 %; Neutrophils # (A) 13.2 k/uL (1.3-7.7); Neutrophils % (A) 74 %; Platelet Count 386 k/uL (150-450); Poikilocytosis Slight; RBC 3.04 m/uL (3.80-5.40); RDW 14.5 % (11.5-15.5); WBC 17.9 k/uL (3.8-10.6)
[2021-03-03 08:14] LABS: Calcium 8.6 mg/dL (8.4-10.2); Potassium 3.4 mmol/L (3.5-5.1)
[2021-03-03] MEDS: FLUTICASONE 44 MCG INHALER INHALATION SCH ×2 (08:38→15:21)
[2021-03-03] MEDS: PYRIDOXINE 50 MG TAB PO SCH (08:43)
[2021-03-03] MEDS: atenoloL 50 MG TAB PO SCH (08:43)
[2021-03-03] MEDS: FAMOTIDINE 20 MG TAB PO SCH (08:43)
[2021-03-03] MEDS: buPROPion XL 150 MG TAB.ER.24H PO SCH (08:43)
[2021-03-03] MEDS: APIXABAN 2.5 MG TABLET PO SCH ×2 (08:43→16:00)
[2021-03-03] MEDS ORDERED: SODIUM CHLORIDE 0.9% 500 ML 500 ML IV ONE (10:17)
--- NOTE | 2021-03-03 10:25 | P.CRDCN ---
History of Present Illness History of present illness: Patient is a 80-year-old female with a known history of CVA with left-sided weakness, dementia, hypertension, hyperlipidemia, COPD, obstructive sleep apnea and history of breast cancer status post chemo and radiation, depression and previous history of smoking who is currently living at half-way was brought to the hospital due to altered mental status. She used to follow with Dr. Dee in the office. We have been asked to see in consultation for tachycardia. Patient was sent back to hospital from half-way due to staff found that she was having stroke-like symptoms with left sided weakness. Patient seen and examined at bedside, she is a poor historian. She is alert, oriented x [address]. When asked why she came to the hospital she states "because I keep falling". CT head showed cerebral atrophy and chronic small ischemia. No acute intracranial abnormality. Stable large frontal scalp hematoma. She denies any pain, chest pain, palpitations, shortness of breath, lightheadedness, dizziness, nausea, emesis, abdominal pain. Denies symptoms of orthopnea or PND. Patient recently admitted 02/24/2021 brought to the hospital after she fell at the half-way. She was newly diagnosed atrial flutter, started on Eliquis 2.5mg daily. Echocardiogram completed revealed ejection fraction 50-55% and mild tricuspid regurgitation. Patient did have extensive bruising on the face and around the eyes, also had nosebleeds which were controlled. She developed a urinary tract infection and was discharged back to half-way with antibiotic course. DIAGNOSTICS EKG- atrial tachycardia HR in the 140s EKG 08/2 AM revealed atrial flutter HR 106 with PVCs. Prior EKG 02/25/21 atrial flutter HR 117 Telemetry tracings indicate atrial fibrillation and flutter HR 140s overnight, this morning patient with better controlled rates HR 50-90s. Chest x-ray showed no acute cardiopulmonary disease. Carotid ultrasound revealed no significant hemodynamic stenosis. Laboratory reviewed, WBC 24, Hgb 37, Plt 544, Na 147, K 4.2, BUN 61, sCr 1.78, Mag 29, troponin negative x 1. UA negative, Cdiff Negative Current home cardiac medications include verapamil 180 mg nightly, atorvastatin 20 mg nightly, atenolol 50 mg daily, Eliquis 2.5 mg twice a day REVIEW OF SYSTEMS At the time of my exam: Unable to do accurate review of systems due to mental status, but patient does deny symptoms CONSTITUTIONAL: Denies fever or chills. CARDIOVASCULAR: Denies chest pain, shortness of breath, orthopnea, PND or palpitations. RESPIRATORY: Denies cough. GASTROINTESTINAL: Denies abdominal pain, diarrhea, constipation, nausea or vomiting. MUSCULOSKELETAL: Denies myalgias. NEUROLOGIC: Denies numbness, tingling, headacbe or weakness. ENDOCRINE: Denies fatigue, weight change, polydipsia or polyurina. GENITOURINARY: Denies burning, hematuria or urgency with micturation. HEMATOLOGIC: Denies history of anemia PHYSICAL EXAMINATION BP 110/77 HR 76 afebrile 97% on 4L nasal cannula CONSTITUTIONAL: No apparent distress. HEENT: Head is normocephalic. No JVD. CHEST EXAMINATION: Lungs with bilateral wheezing in the bases. No chest wall tenderness is noted on palpation or with deep breathing. HEART EXAMINATION: Irregular rate and rhythm. S1, S2 heard. No murmurs, gallops or rub. ABDOMEN: Soft, distended. Positive bowel sounds. EXTREMITIES: 2+ peripheral pulses, no lower extremity edema and no calf tenderness. SKIN: Forehead with bruising and hematoma present NEUROLOGIC EXAMINATION: Patient is awake, alert, oriented x 1-2. ASSESSMENT Paroxysmal typical atrial flutter - on Eliquis 2.5mg BID History of CVA with left-sided weakness Acute on chronic kidney disease Dementia Hypertension Hyperlipidemia COPD Obstructive sleep apnea History of breast cancer status post chemo and radiation Hypernatremia PLAN Patient is currently in atrial fibrillation/flutter with controlled ventricular rates when taking home medication Verapamil 180mg nightly, atenolol 50mg daily. Unclear if patient maybe was not taking her medications at the half-way. We will Discontinue cardizem drip. Continue current medical therapy. Continue Eliquis 2.5mg BID. Continue cardiac telemetry Patient to follow up with Dr. Ferreira in the office on discharge Further recommendations based on clinical course. Nurse Practitioner note has been reviewed, I agree with a documented findings and plan of care. Patient was seen and examined. Past Medical History Past Medical History: Cancer, COPD, CVA/TIA, Dementia, Hyperlipidemia, Hypertension, Osteoarthritis (OA), Renal Disease, Sleep Apnea/CPAP/BIPAP Additional Past Medical History / Comment(s): Hx breast ca x2 left breast- radiation and chemo 2003 & 2008, bi pap machine , hx of CVA with left side weakness, DJD, hospitalized for UTI & Renal failure related to dehydration. o ccasional incontinence-wears attends, up with assistance-gait unsteady, speech clear, feeds self- occasional cough when eating, some confusion. 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 left thumb surgery Past Anesthesia/Blood Transfusion Reactions: Unable to Obtain Additional Past Anesthesia/Blood Transfusion Reaction / Comment(s): . Past Psychological History: Depression Smoking Status: Former smoker Past Alcohol Use History: None Reported Additional Past Alcohol Use History / Comment(s): smoked 1ppd from age 17 Past Drug Use History: None Reported - Past Family History Sister(s) Family Medical History: Cancer Additional Family Medical History / Comment(s): 2 sisters had breast ca, one sister had ovarian ca Daughter(s) Family Medical History: Cancer Additional Family Medical History / Comment(s): breast CA Medications and Allergies Home Medications Medication Instructions Recorded Confirmed Type Cholecalciferol [Vitamin D3 (25 50 mcg PO BID@0800,1600 03/09/17 03/01/21 History Mcg = 1000 Iu)] Multivitamins, Thera [Multivitamin 1 tab PO DAILY@0800 02/12/20 03/01/21 History (formulary)] Atorvastatin [Lipitor] 20 mg PO HS@199902/23/21 03/01/21 History Apixaban [Eliquis] 2.5 mg PO BID@0800,159903/01/21 03/01/21 History Atenolol [Tenormin] 50 mg PO DAILY@0800 03/01/21 03/01/21 History Cefuroxime Axetil [Ceftin] 500 mg PO BID@0800,1600 03/01/21 03/01/21 History Famotidine [Pepcid] 20 mg PO DAILY@0800 03/01/21 03/01/21 History Fluticasone Propionate [Flovent 1 puff INHALATION RT-BID@0800,1600 03/01/21 03/01/21 History Diskus] Glucosamine HCl/Chondroitin Haines 1 cap PO HS@199903/01/21 03/01/21 History [Glucosamine-Chondroitin Cap] Melatonin 3 mg PO HS@199903/01/21 03/01/21 History Oxymetazoline HCl [Afrin 0.05%] 2 spr NASAL TID@0800,1200,1800 03/01/21 03/01/21 History Verapamil Sr [Isoptin Sr] 180 mg PO HS@199903/01/21 03/01/21 History buPROPion XL [Wellbutrin Xl] 150 mg PO DAILY@0800 03/01/21 03/01/21 History Allergies Allergy/AdvReac Type Severity Reaction Status Date / Time No Known Allergies Allergy Verified 03/01/21 19:45 Physical Exam Vitals: Vital Signs Temp Pulse Resp BP Pulse Ox 03/03/21 04:00 144 H 18 110/77 97 03/02/21 23:49 144 H 18 133/67 92 L 03/02/21 20:00 98.1 F 146 H 18 111/68 97 03/02/21 15:05 97.8 F 148 H 18 117/70 98 03/02/21 11:35 97.8 F 144 H 18 109/79 94 L 03/02/21 08:20 97.9 F 146 H 16 108/65 99 Intake and Output 03/02/21 03/03/21 03/03/21 22:59 06:59 14:59 Intake Total 63.5 240 Output Total 400 Balance -336.5 240 Intake: Intake, IV Titration 63.5 Amount Diltiazem 125 mg In 63.5 Sodium Chloride 0.9% 100 ml @ 5 MG/HR 5 mls/hr IV .Q24H [facility] Rx#:[id number] Oral 240 Output: Urine 400 Other: Voiding Method Indwelling Catheter Indwelling Catheter Results 03/03/21 07:02 03/03/21 07:02 Current Medications Generic Name Dose Route Start Last Admin Trade Name Freq PRN Reason Stop Dose Admin Acetaminophen 650 mg 03/01/21 20:25 Acetaminophen Tab 325 Mg Tab PO Q6HR PRN Mild Pain or Fever > 100.5 Apixaban 2.5 mg 03/02/21 10:00 03/02/21 17:54 Apixaban 2.5 Mg Tablet PO 2.5 mg BID@0800,1600 CABRERA Administration Protocol Atenolol 50 mg 03/02/21 10:56 03/02/21 13:00 Atenolol 50 Mg Tab PO 50 mg DAILY@0800 [facility] Administration Atorvastatin Calcium 20 mg 03/02/21 20:00 03/02/21 20:54 Atorvastatin 20 Mg Tab PO 20 mg HS@1999 CABRERA Administration Bupropion HCl 150 mg 03/02/21 10:00 03/02/21 13:00 Bupropion Xl 150 Mg Tab.Er.24h PO 150 mg DAILY@0800 [facility]RERA Administration Famotidine 20 mg 03/02/21 10:00 03/02/21 13:00 Famotidine 20 Mg Tab PO 20 mg DAILY@0800 [facility] Administration Fluticasone Propionate 1 puff 03/02/21 16:00 03/02/21 18:15 Fluticasone 44 Mcg Inhaler INHALATION 1 puff RT-BID@0800,1600 [facility] Administration Diltiazem HCl 125 mg/ Sodium 125 mls @ 5 mls/hr 03/01/21 21:30 03/02/21 21:23 Chloride IV 10 mg/hr .Q24H [facility] 10 mls/hr Administration 5 MG/HR Dextrose/Sodium Chloride 1,000 mls @ 150 mls/hr 03/02/21 11:00 03/03/21 00:18 Dextrose 5%-1/2ns Iv Soln IV 150 mls/hr .Q6H40M [facility] Administration Iopamidol 30 ml 03/02/21 17:50 Iopamidol Contrast (Oral Use) Vial PO 03/03/21 17:[address] Scan Melatonin 3 mg 03/02/21 20:00 03/02/21 20:54 Melatonin 3 Mg Tablet PO 3 mg HS@1999 [facility] Administration Naloxone HCl 0.2 mg 03/01/21 20:25 Naloxone 0.4 Mg/Ml 1 Ml Vial IV Q2M PRN Opioid Reversal Pyridoxine HCl 50 mg 03/02/21 12:15 03/02/21 17:54 Pyridoxine 50 Mg Tab PO 50 mg DAILY [facility] Administration Verapamil HCl 180 mg 03/02/21 20:00 03/02/21 17:55 Verapamil Sr 180 Mg Tablet.Er PO 180 mg HS@1999 [facility] Administration Intake and Output 03/02/21 03/03/21 03/03/21 22:59 06:59 14:59 Intake Total 63.5 240 Output Total 400 Balance -336.5 240 Intake: Intake, IV Titration 63.5 Amount Diltiazem 125 mg In 63.5 Sodium Chloride 0.9% 100 ml @ 5 MG/HR 5 mls/hr IV .Q24H [facility] Rx#:[id number] Oral 240 Output: Urine 400 Other: Voiding Method Indwelling Catheter Indwelling Catheter 03/01/21 19:17 03/01/21 19:17
[2021-03-03] MEDS ORDERED: SODIUM CHLORIDE 0.9% 1,000 ML IV SCH (10:30)
--- NOTE | 2021-03-03 11:59 | CT ---
EXAMINATION TYPE: CT abdomen pelvis wo con DATE OF EXAM: 03/03/2021 COMPARISON: None INDICATION: Leukocytosis DLP: 899.3 mGycm, Automated exposure control for dose reduction was used. CONTRAST: 0 mL of Isovue 300. Study performed with Oral Contrast TECHNIQUE: Axial images were obtained from above the diaphragm to the pubic rami in the axial plane a t 5 mm thick sections. Reconstructed images are reviewed on the computer in the coronal plane. FINDINGS: Limited CT sections are obtained the lung bases. The lung bases are clear. Minimal bilateral pleura l effusions are present. Coronary artery calcification is noted. CT ABDOMEN: Liver: Normal Spleen: Normal Pancreas: Normal Adrenal glands: The adrenal glands are normal. Gallbladder: Distended Kidneys: No masses are evident. No hydronephrosis is present. No cysts are present. No renal stone s are evident. Aorta: Vascular calcification is within the aorta. Inferior vena cava: Normal. CT PELVIS: There is thickened transverse colon wall. Correlate for colitis. Air-fluid level may be within the pr oximal transverse colon. Descending colon and sigmoid colon contains diverticuli without adjacent inf lammatory changes suggest acute diverticulitis. There are loops of bowel which are incompletely diste nded or lack oral contrast limiting their evaluation. Appendix: Not identified. No inflammatory change or dilated tubular structures are evident. Urinary bladder: Decompressed with a Fletcher catheter. Genitourinary structures: Uterus and ovaries are not identified. Osseous structures: No suspicious lytic or sclerotic lesions. Degenerative disc changes and facet viktoriya nges are within the lower lumbar spine. IMPRESSIONS: 1. Diffusely thickened distal transverse colon. Correlate for colitis. 2. Diverticulosis without acute diverticulitis descending colon and sigmoid colon. 3. Minimal bilateral pleural effusions.
[2021-03-03] MEDS: LACTATED RINGERS 1,000 ML IV SCH (12:03)
[2021-03-03] MEDS: SODIUM BICARBONATE TAB 650 MG TAB PO SCH ×3 (12:04→21:41)
[2021-03-03] MEDS: AMPICILLIN-SULBACTAM 3 GM in SODIUM CHLORIDE 0.9% 100 ML IVPB SCH ×3 (12:04→23:39)
[2021-03-03] MEDS ORDERED: POTASSIUM CHLORIDE ER 20 MEQ TAB.ER PO STA (14:52)
[2021-03-03] MEDS ORDERED: METOPROLOL TARTRATE 25 MG TAB PO STA (14:56)
--- NOTE | 2021-03-03 16:31 | P.PN ---
Subjective Progress Note Date: 03/03/21 I am seeing the patient for the first time for neurological management. Please refer to Dr. Sotelo's note for further details. I was notified by Dr. Sotelo that family does not want to pursue with MRI Brain a nd she is restarted on Eliquis. The patient denies of any headache, neck pain, nausea or vomiting. She denies of visual disturbance. According to patient she was getting an object and she leaned forward and the the fence fell and as a result she fell forward as well as result and she suffered her injury according to the patient. Per the daughter (Jannette) via phone she stated the fall was a week ago and this past Wednesday while on at [facility] she had left sided weakness and result stroke was suspected and she was brought here. Objective - Vital Signs Vital signs: Vital Signs Temp 98.4 F 03/03/21 08:00 Pulse 52 L 03/03/21 08:00 Resp 18 03/03/21 08:00 BP 105/67 03/03/21 08:00 Pulse Ox 98 03/03/21 08:39 Intake & Output 03/02/21 03/03/21 03/03/21 18:59 06:59 18:59 Intake Total 535.75 303.5 533.5 Output Total 400 325 Balance 135.75 303.5 208.5 Weight 89 kg Intake: Intake, IV Titration 55.75 63.5 113.5 Amount Diltiazem 125 mg In 55.75 63.5 113.5 Sodium Chloride 0.9% 100 ml @ 5 MG/HR 5 mls/hr IV .Q24H [facility] Rx#:[id number] Oral 480 240 420 Output: Urine 400 325 Other: Voiding Method Indwelling Catheter Indwelling Catheter Indwelling Catheter - Exam Patient is an elderly female, in no acute distress. HENT: Supple neck. No nuchal rigidity. Patient is alert awake. Patient knows her name that she is in [facility] in [place]. She said the year is 2019. She correctly stated the month. Speech and language functions are normal. Attention, concentration and fund of knowledge is adequate. On cranial examination, pupils are round and reacting to light, visual lance are full on confrontation, extraocular muscles are intact with no nystagmus. Face is symmetric, tongue protrudes to the midline. Has echymoses around the eyes (raccoon eyes) Palatal elevation and sensation normal, hearing and shoulder shrug normal, facial sensation normal. Shoulder shrug normal. On muscle strength testing, there is left pronator drift. Muscle strength shows executive legal secretary are equal. Biceps 5/4, triceps 5/4. In the lower extremities knees could not be checked because of severe bruise. Her ankle dorsiflexion is 5/5-. Left hip flexion has drift whereas she was able to hold her right leg up off the bed. Cerebellar function showed ataxia for [id number] testing on the left. Tone and bulk of muscles normal. Sensory to touch is equal with no neglect. Deep tendon reflexes are (R/L) biceps 2/2, brachioradialis 1/0, knees not checked, ankle 1/1, plantar is downgoing on the right, upon left. WORK-UP: CT of the brain is reported as cerebral atrophy and chronic small vessel ischemia. No acute intracranial normality. Stable large frontal scalp hematoma. Carotid duplex was reported as no significant hemodynamic significant stenosis. Intimal thickening and focal area of atherosclerotic plaque. Cardiac dysrhythmia. Patient's creatinine on presentation was 1.78 and currently is 1.10 so it's trending down. She has been afebrile during this hospital stay. Patient has a high plasma lactic acid vein and 2.5 and a CRP is 1.5. White blood cell percentage and 24.0 and the repeat is 17.9 Urinalysis is negative for unit tract infection. Blood cultures his no growth after 24 hours. - Labs CBC & Chem 7: 03/03/21 07:02 03/03/21 07:02 Labs: Abnormal Lab Results - Last 24 Hours (Table) 03/03/21 03/03/21 03/03/21 Range/Units 07:02 07:02 07:02 WBC 17.9 H (3.8-10.6) k/uL RBC 3.04 L (3.80-5.40) m/uL Hgb 10.0 L D (11.4-16.0) gm/dL Hct 28.1 L (34.0-46.0) % Neutrophils # 13.2 H (1.3-7.7) k/uL Monocytes # 1.4 H (0-1.0) k/uL Potassium 3.4 L (3.5-5.1) mmol/L Chloride 118 H (98-107) mmol/L Carbon Dioxide 19 L (22-30) mmol/L BUN 25 H (7-17) mg/dL Creatinine 1.10 H (0.52-1.04) mg/dL Glucose 140 H (74-99) mg/dL Plasma Lactic Acid Lex (0.7-2.0) mmol/L C-Reactive Protein 1.5 H (<1.0) mg/dL 03/03/21 03/03/21 Range/Units : 11:56 WBC (3.8-10.6) k/uL RBC (3.80-5.40) m/uL Hgb (11.4-16.0) gm/dL Hct (34.0-46.0) % Neutrophils # (1.3-7.7) k/uL Monocytes # (0-1.0) k/uL Potassium (3.5-5.1) mmol/L Chloride (98-107) mmol/L Carbon Dioxide (22-30) mmol/L BUN (7-17) mg/dL Creatinine (0.52-1.04) mg/dL Glucose (74-99) mg/dL Plasma Lactic Acid Lex 2.5 H* 2.5 H* (0.7-2.0) mmol/L C-Reactive Protein (<1.0) mg/dL Microbiology - Last 24 Hours (Table) 03/01/21 19:30 Blood Culture - Preliminary Blood No Growth after 24 hours Assessment and Plan Assessment: * Possible acute CVA with left-sided weakness. Patient has history CVA (right centrum semiovale on 02/13/2020) involving the left side of the body, but apparently there were no residual deficits. * Recent history of fall on 02/23/2021 with raccoon eyes. * Leukocytosis, CRP and lactic acidosis: Unknown etiology. * Hypertension * Hyperlipidemia * Dementia * History of atrial flutter, on long-term anticoagulation. * History of breast cancer Plan: * On eliquis 2.5mg 1 tab bid and lipitor 20mg qhs for secondary stroke prophylaxis. * Per Dr. Sotelo he stated that family does not want any aggressive treatment and no need to pursue with MRI Brain. * Consulted PT and OT * Q4 hours neuro checks and placed on cardiac monitoring. * Ordered lipid panel * Infection disease is on board. Does not seem she has meningoecephalitis (no fever, no nuchal ridigity, no complaint of headache or neck pain and is responsive and following commands appropriately). Cannot get Lumbar puncture since is on eliquis. Will defer management of antibiotic to I.D. team. * Cardiology team is on board. * Will defer the rest of medical management to the primary team. * For DVT prophylaxis: On eliquis. The plan is discussed with the nurse and her daughter (Jannette) via phone. Will follow-up with the patient sporadically. Daniel Eaton MD Neuro-Hospitalist Time with Patient: Less than 30
--- NOTE | 2021-03-03 17:49 | P.PN ---
Progress Note - Text Progress Note Date: 03/03/21 History of presenting complaint This is a pleasant 80-year-old patient, Dr. Walter, with a known history of CVA with left-sided weakness, dementia, hypertension, hyperlipidemia, COPD, obstructive sleep apnea and history of breast cancer status post chemo and radiation, depression and previous history of smoking [facility] was brought to the hospital due to altered mental status. Patient was recently admitted to hospital status post fall after hitting her head. Patient did have extensive bruising on the face and around the eyes. Patient was also having nosebleed which was packed initially and was removed. No active bleeding was noted. Hemoglobin has been stable. Patient was also found to have tachycardia, atrial flutter and was started on verapamil dose increased. Continue on metoprolol. Patient is also on anticoagulation in the form of Eliquis. Patient also developed urinary tract infection and was [facility] with [facility]. March 03: Patient is yesterday computed abdominal pain. Computed tomography scan of the abdomen was ordered. Today no abdominal pain. Was to eat more. Laying in bed. A bit tired Review of systems: Was done for constitutional, cardiovascular, GI, pulmonary. relevant finding as above Active Medications Acetaminophen (Acetaminophen Tab 325 Mg Tab) 650 mg PO Q6HR PRN PRN Reason: Mild Pain or Fever > 100.5 Apixaban (Apixaban 2.5 Mg Tablet) 2.5 mg PO BID@0800,1600 [facility]; Protocol Last Admin: 03/03/21 16:00 Dose: 2.5 mg Documented by: Atenolol (Atenolol 50 Mg Tab) 50 mg PO DAILY@0800 [facility] Last Admin: 03/03/21 08:43 Dose: 50 mg Documented by: Atorvastatin Calcium (Atorvastatin 20 Mg Tab) 20 mg PO HS@1999 [facility] Last Admin: 03/02/21 20:54 Dose: 20 mg Documented by: Bupropion HCl (Bupropion Xl 150 Mg Tab.Er.24h) 150 mg PO DAILY@0800 [facility] Last Admin: 03/03/21 08:43 Dose: 150 mg Documented by: Famotidine (Famotidine 20 Mg Tab) 20 mg PO DAILY@0800 [facility] Last Admin: 03/03/21 08:43 Dose: 20 mg Documented by: Fluticasone Propionate (Fluticasone 44 Mcg Inhaler) 1 puff INHALATION RT- BID@0800,1600 [facility] Last Admin: 03/03/21 15:21 Dose: 1 puff Documented by: Ampicillin Sodium/Sulbactam (Sodium 3 gm/ Sodium Chloride) 100 mls @ 200 mls/hr IVPB Q6HR [facility] Last Admin: 03/03/21 16:08 Dose: 200 mls/hr Documented by: Lactated Ringer's (Lactated Ringers) 1,000 mls @ 50 mls/hr IV .Q20H [facility] Last Admin: 03/03/21 12:03 Dose: 50 mls/hr Documented by: Iopamidol (Iopamidol Contrast (Oral Use) Vial) 30 ml PO Q60M PRN PRN Reason: CT Scan Stop: 03/03/21 17:51 Last Admin: 03/03/21 10:00 Dose: 30 ml Documented by: Melatonin (Melatonin 3 Mg Tablet) 3 mg PO HS@1999 [facility] Last Admin: 03/02/21 20:54 Dose: 3 mg Documented by: Naloxone HCl (Naloxone 0.4 Mg/Ml 1 Ml Vial) 0.2 mg IV Q2M PRN PRN Reason: Opioid Reversal Pyridoxine HCl (Pyridoxine 50 Mg Tab) 50 mg PO DAILY [facility] Last Admin: 03/03/21 08:43 Dose: 50 mg Documented by: Sodium Bicarbonate (Sodium Bicarbonate Tab 650 Mg Tab) 650 mg PO TID [facility] Last Admin: 03/03/21 16:00 Dose: 650 mg Documented by: Verapamil HCl (Verapamil Sr 180 Mg Tablet.Er) 180 mg PO HS@1999 [facility] Last Admin: 03/02/21 17:55 Dose: 180 mg Documented by: On examination: VITAL SIGNS: 98.4, 52, 18, 105 basically 7, 97% on 2 L GENERAL APPEARANCE: Reclining in bed comfortable EYES: Pupils equal. Conjunctiva normal. Periorbital, forehead bruising NECK: JVD not raised. Mass not palpable. RESPIRATORY: Respiratory effort normal. Lungs decreased breath sounds CARDIOVASCULAR: Heart sounds irregular No edema. ABDOMEN: Soft. Liver and spleen not palpable. No tenderness. No mass palpable. PSYCHIATRY: Patient able answer simple questions. Investigations: Computed tomography scan abdomen [March 03: Diffusely thickened distal transverse colon. Diverticulosis without evidence of dermatitis. Gallbladder distended. WBC 17.9 hemoglobin 10 platelets 386 potassium 3.4 bicarb 19. 25 creatinine 1.10 lactic acid 2.5 CRP 1.5 UA: Trace protein Stool for C. diff: Negative Carotid Doppler: No significant stenosis. EKG tracing: Atrial flutter dose to [address] segment depression Chest x-ray film: No infiltrates Urine culture: E. coli Assessment and plan: -Persistent atrial flutter uncontrolled Cardizem drip was discontinued. Atenolol 50 mg. Verapamil SR 180 mg. Eliquis -Possible transverse colitis. -Hypokalemia Replace. Follow labs - left hemiparesis from prior CVA -Essential hypertension Atenolol, verapamil -Hyperlipidemia Lipitor -Obstructive sleep apnea- uses BiPAP -COPD in a current smoker Follow clinically -Chronic gait dysfunction Uses walker -Acute kidney injury, ATN: Improving Patient's creatinine was 0.96 on February 24. Peaked at 2.15. Down to 1.1 -Acute metabolic acidosis from renal failure: New diagnosis At by mouth sodium bicarbonate -Facial bruising secondary to being on anticoagulation and a fall Follow clinically -Depression On Wellbutrin XL -Chronic insomnia from medical conditions Melatonin. -Moderate cognitive impairment, likely from late onset Alzheimer's dementia Change IV fluids to LR at 50 mL an hour. Had sodium bicarbonate. IV Unasyn. Gallbladder ultrasound. Consult general surgery.
[2021-03-03] MEDS: VERAPAMIL SR 180 MG TABLET.ER PO SCH (21:41)
[2021-03-03] MEDS: ATORVASTATIN 20 MG TAB PO SCH (21:41)
[2021-03-03] MEDS: MELATONIN 3 MG TABLET PO SCH (21:41)
[2021-03-03] MEDS ORDERED: IPRATROPIUM-ALBUTEROL 3 ML NEB INHALATION PRN (22:12)
[2021-03-04] MEDS ORDERED: IPRATROPIUM-ALBUTEROL 3 ML NEB INHALATION SCH
[2021-03-04] MEDS: AMPICILLIN-SULBACTAM 3 GM in SODIUM CHLORIDE 0.9% 100 ML IVPB SCH ×3 (05:22→18:08)
[2021-03-04] MEDS: LACTATED RINGERS 1,000 ML IV SCH (08:15)
[2021-03-04] MEDS: PYRIDOXINE 50 MG TAB PO SCH (08:16)
[2021-03-04] MEDS: SODIUM BICARBONATE TAB 650 MG TAB PO SCH ×2 (08:16→16:16)
[2021-03-04] MEDS: FAMOTIDINE 20 MG TAB PO SCH (08:17)
[2021-03-04] MEDS: APIXABAN 2.5 MG TABLET PO SCH ×2 (08:17→16:17)
[2021-03-04] MEDS: atenoloL 50 MG TAB PO SCH (08:17)
[2021-03-04] MEDS: buPROPion XL 150 MG TAB.ER.24H PO SCH (08:17)
[2021-03-04] MEDS: FLUTICASONE 44 MCG INHALER INHALATION SCH ×2 (08:17→18:47)
--- NOTE | 2021-03-04 08:49 | US ---
EXAMINATION TYPE: US abdomen limited DATE OF EXAM: 03/04/2021 COMPARISON: Correlation CT 03/03/2021 CLINICAL HISTORY: 80-year-old female Abnormal gallbladder on computed tomography scan.. Patient has b een in this hospital x 4 days TECHNIQUE: Multiple sonographic images of the right upper quadrant are obtained. FINDINGS: EXAM MEASUREMENTS: Liver Length: 15.9 cm Gallbladder Wall: 0.2 cm CBD: 7.9 mm Right Kidney: 8.5 x 4.3 x 3.7 cm Director [employer] notes: US technically limited by overlying bowel gas Pancreas: Only portions of the pancreatic neck and body are visualized. Suboptimal visualization of the pancreatic head and tail due to shadowing from bowel gas. Liver: no masses seen Gallbladder: Hydropic measuring 4.6 cm wide with some layering sludge. No abnormal wall thickening. No surrounding fluid. No shadowing calculi. Evidence for sonographic Barba's sign: no CBD: Mildly dilated. Right Kidney: No hydronephrosis or masses seen IMPRESSION: 1. Hydropic gallbladder with sludge. No wall thickening, surrounding fluid, or evidence of a sonograp hic Barba sign. The hydropic change may relate to fasting state. Clinically correlate. If further im aging evaluation of the gallbladder is desired, HIDA scan can be considered. 2. Bile duct mildly dilated at 7.9 mm. This may be acceptable given patient's age and should be lew borated with normal alkaline phosphatase and bilirubin levels.
[2021-03-04 09:02] LABS: Albumin 2.5 g/dL (3.5-5.0); Calcium 8.7 mg/dL (8.4-10.2); Potassium 3.5 mmol/L (3.5-5.1); Total Bilirubin 0.7 mg/dL (0.2-1.3)
[2021-03-04 09:14] LABS: Basophils % (A) 0 %; Eosinophils # (A) 0.3 k/uL (0-0.7); Eosinophils % (A) 3 %; HGB 9.2 gm/dL (11.4-16.0); Lymphocytes # (A) 2.1 k/uL (1.0-4.8); Lymphocytes % (A) 15 %; MCH 32.3 pg (25.0-35.0); MCHC 35.3 g/dL (31.0-37.0); MCV 91.5 fL (80.0-100.0); Mean Platelet Volume 8.4; Monocytes # (A) 0.9 k/uL (0-1.0); Monocytes % (A) 7 %; Neutrophils # (A) 10.2 k/uL (1.3-7.7); Neutrophils % (A) 74 %; Platelet Count 376 k/uL (150-450); Poikilocytosis Slight; RBC 2.84 m/uL (3.80-5.40); RDW 14.4 % (11.5-15.5); WBC 13.7 k/uL (3.8-10.6)
[2021-03-04 10:18] LABS: C Reactive Protein 2.2 mg/dL (<1.0)
--- NOTE | 2021-03-04 12:04 | P.PN ---
Subjective Patient is a 80-year-old female with a known history of CVA with left-sided weakness, dementia, hypertension, hyperlipidemia, COPD, obstructive sleep apnea and history of breast cancer status post chemo and radiation, depression and previous history of smoking who is currently living at snf was brought to the hospital due to altered mental status. She used to follow with Dr. Dee in the office. We have been asked to see in consultation for tachycardia. Patient was sent back to hospital from snf due to staff found that she was having stroke-like symptoms with left sided weakness. She is a poor historian. CT head showed cerebral atrophy and chronic small ischemia. No acute intracranial abnormality. Stable large frontal scalp hematoma. Patient recently admitted 02/24/2021 brought to the hospital after she fell at the snf. She was newly diagnosed atrial flutter, started on Eliquis 2.5mg daily. Echocardiogram completed revealed ejection fraction 50-55% and mild tricuspid regurgitation. Patient did have extensive bruising on the face and around the eyes, also had nosebleeds which were controlled. She developed a urinary tract infection and was discharged back to snf with antibiotic course. 03/04/2021: Patient seen and examined at bedside, no acute distress. She denies any complaints or symptoms at this time. She is alert and oriented to person and place at time of exam. Patient was tachycardiac yesterday evening around 3pm, patient given 1 dose of 25mg PO Lopressor Telemetry reviewed, patient appears to be in and out of atrial flutter. Patient currently in sinus mechanism HR 60s. Patient underwent abdominal ultrasound today that revealed hydropic gallbladder with sludge. No wall thickening. Bile duct mildly dilated at 7.9 mm. Patient also underwent CT abdomen and pelvis which revealed diffusely between the distal transverse colon, diverticulosis without active acute diverticulitis, mild bilateral pleural effusions. PHYSICAL EXAMINATION Blood pressure 118/64, heart rate 69, afebrile, maintaining oxygen saturation is 97% on 2 L nasal cannula CONSTITUTIONAL: No apparent distress. HEENT: Head is normocephalic. No JVD. CHEST EXAMINATION: Lungs with bilateral wheezing in the bases. HEART EXAMINATION: Regular rate and rhythm. S1, S2 heard. No murmurs, gallops or rub. ABDOMEN: Soft, distended. Positive bowel sounds. EXTREMITIES: 2+ peripheral pulses, no lower extremity edema and no calf tenderness. SKIN: Forehead with bruising and hematoma present NEUROLOGIC EXAMINATION: Patient is awake, alert, oriented x 1-2. ASSESSMENT Paroxysmal typical atrial flutter - on Eliquis 2.5mg BID History of CVA with left-sided weakness Acute on chronic kidney disease Dementia Hypertension Hyperlipidemia COPD Obstructive sleep apnea History of breast cancer status post chemo and radiation Hypernatremia PLAN Patient rates are currently controlled currently in sinus mechanism. Recommend continue home medication Verapamil 180mg nightly, atenolol 50mg daily. Continue current medical therapy. Continue Eliquis 2.5mg BID. From a cardiology perspective, we will sign off at this time. Please reach out with any other questions or concerns. Patient to follow up with Dr. Ferreira in the office on discharge Nurse Practitioner note has been reviewed, I agree with a documented findings and plan of care. Patient was seen and examined. Objective - Vital Signs Vital signs: Vital Signs Temp 97.7 F 03/04/21 08:00 Pulse 69 03/04/21 08:00 Resp 16 03/04/21 08:00 BP 118/64 03/04/21 08:00 Pulse Ox 97 03/04/21 08:18 Intake & Output 03/03/21 03/04/21 03/04/21 18:59 06:59 18:59 Intake Total 713.5 0 Output Total 675 200 Balance 38.5 -200 0 Weight 92 kg Intake: Intake, IV Titration 113.5 Amount Diltiazem 125 mg In 113.5 Sodium Chloride 0.9% 100 ml @ 5 MG/HR 5 mls/hr IV .Q24H [facility] Rx#:[id number] Oral 600 0 Output: Urine 675 200 Other: Voiding Method Indwelling Catheter Indwelling Catheter # Voids 1 # Bowel Movements 2 - Labs CBC & Chem 7: 03/04/21 07:20 03/04/21 07:20 Labs: Abnormal Lab Results - Last 24 Hours (Table) 03/03/21 03/03/21 03/03/21 Range/Units 11:56 14:57 18:43 WBC (3.8-10.6) k/uL RBC (3.80-5.40) m/uL Hgb (11.4-16.0) gm/dL Hct (34.0-46.0) % Neutrophils # (1.3-7.7) k/uL Chloride (98-107) mmol/L Plasma Lactic Acid Lex 2.5 H* 2.1 H* 2.3 H* (0.7-2.0) mmol/L Total Protein (6.3-8.2) g/dL Albumin (3.5-5.0) g/dL 03/04/21 03/04/21 Range/Units 07:20 07:20 WBC 13.7 H (3.8-10.6) k/uL RBC 2.84 L (3.80-5.40) m/uL Hgb 9.2 L (11.4-16.0) gm/dL Hct 26.0 L (34.0-46.0) % Neutrophils # 10.2 H (1.3-7.7) k/uL Chloride 112 H (98-107) mmol/L Plasma Lactic Acid Lex (0.7-2.0) mmol/L Total Protein 5.0 L (6.3-8.2) g/dL Albumin 2.5 L (3.5-5.0) g/dL Microbiology - Last 24 Hours (Table) 03/01/21 19:30 Blood Culture - Preliminary Blood No Growth after 48 hours
[2021-03-04] MEDS ORDERED: Potassium Replacement Protocol 1 EACH MISC MISCELLANE PRN (12:18)
[2021-03-04] MEDS: POTASSIUM CHLORIDE ER 20 MEQ TAB.ER PO SCH ×2 (12:28→14:50)
--- NOTE | 2021-03-04 13:02 | PN ---
PROGRESS NOTE DATE OF SERVICE: 03/04/2021 REASON FOR FOLLOWUP: Leukocytosis possible colitis, question of ischemic colitis. INTERVAL HISTORY: The patient is afebrile. The patient is breathing comfortably on nasal cannula oxygen. Denies having any chest pain. No cough. No abdominal pain. No diarrhea has been reported. PHYSICAL EXAMINATION: Blood pressure 118/54, pulse of 79, temperature 97.7. She is 97% on 2 L nasal cannula. General description is an elderly female lying in bed in no distress. Respiratory system: Unlabored breathing. Clear to auscultation anteriorly. Heart S1, S2. Regular rate and rhythm. Abdomen: Soft. No distention. No guarding. No rigidity. LABS: Hemoglobin is 9.1, white count 13.7, BUN of 15, creatinine 0.95. Lactic acid down to 1.9. DIAGNOSTIC IMPRESSION AND PLAN: Patient with leukocytosis and evidence of colitis on the transverse colon seen on the CT. Possible etiologies patient responding to Unasyn to continue. Transition antibiotic on discharge and continue supportive care. MMODL / IJN: [id number] /
--- NOTE | 2021-03-04 15:35 | P.GSCN ---
History of Present Illness Consult date: 03/04/21 History of present illness: CHIEF COMPLAINT: Mental status change HISTORY OF PRESENT ILLNESS: This is a 80-year-old female with known history of CVA with left-sided weakness, dementia, hypertension, hyperlipidemia, COPD, obstructive sleep apnea and breast cancer status post chemoradiation. Also history of nicotine. Patient brought into the hospital due to altered mental status and concerns for possible stroke. Patient also had a new diagnosis of atrial flutter and is currently on Eliquis and followed by cardiology. Surgical service was consulted in regards to abdominal pain. At this time patient denies any abdominal pain. Tolerating clear liquid diet. No nausea or vomiting reported. Nursing staff did report some diarrhea yesterday. Computed tomography scan abdomen and pelvis shows diffusely thickened distal transverse colon. Correlate for colitis. Diverticulosis without acute diverticulitis of the descending colon and sigmoid colon. Abdominal ultrasound shows hydropic gallbladder with sludge. No wall thickening or surrounding fluid. No evidence of Barba sign. The hydropic change may relate to the fasting state. Bile duct mildly dilated at 7.9 mm. This may be acceptable given patient's age and should be incorporated with normal alkaline phosphatase and bilirubin levels. Patient seen and examined with Dr. walsh PAST MEDICAL HISTORY: See list. PAST SURGICAL HISTORY: See list. MEDICATIONS: See list. ALLERGIES: See list. SOCIAL HISTORY: No illicit drug use. REVIEW OF SYSTEMS: CONSTITUTIONAL: Denies fever or chills. HEENT: Denies blurred vision, vision changes, or eye pain. Denies hemoptysis CARDIOVASCULAR: Denies chest pain or pressure. RESPIRATORY: No shortness of breath. GASTROINTESTINAL: See HPI for pertinent findings HEMATOLOGIC: Denies bleeding disorders. GENITOURINARY: Denies any blood in urine or increased urinary frequency. SKIN: Denies pruitis. Denies rash. PHYSICAL EXAM: VITAL SIGNS: Reviewed GENERAL: Well-developed in no acute distress. HEENT: No sclera icterus. Extraocular movements grossly intact. Moist buccal mucosa. Head is atraumatic, normocephalic. No nasal drainage. ABDOMEN: Soft. Nondistended. Nontender NEUROLOGIC: Pleasantly confused LABORATORY DATA: WBC on admission 24 trending downwards to 13.7 hemoglobin 9.2 platelets 376 sodium 141 potassium 3.5 creatinine 0.95 LFTs normal alk phos 108 and total bilirubin 0.7 C-reactive protein 2.2 lactic 2.5 down to 1.9 UA negative C. diff negative IMAGING: Imaging as stated above ASSESSMENT: 1. Possible colitis of the transverse colon 2. Hydropic gallbladder with sludge PLAN: -Start patient on low-fat diet -Continue with conservative management -Recommend outpatient colonoscopy -Recommend outpatient laparoscopic cholecystectomy -No surgical intervention planned at this time -Continue antibiotics per ID Thank you for this consultation Physician Mucker Cofferdam note has been reviewed by physician. Signing provider agrees with the documented findings, assessment, and plan of care. Past Medical History Past Medical History: Cancer, COPD, CVA/TIA, Dementia, Hyperlipidemia, Hypertension, Osteoarthritis (OA), Renal Disease, Sleep Apnea/CPAP/BIPAP Additional Past Medical History / Comment(s): Hx breast ca x2 left breast- radiation and chemo 2003 & 2008, bi pap machine , hx of CVA with left side weakness, DJD, hospitalized for UTI & Renal failure related to dehydration. occasional incontinence-wears attends, up with assistance-gait unsteady, speech clear, feeds self- occasional cough when eating, some confusion. 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 left thumb surgery Past Anesthesia/Blood Transfusion Reactions: Unable to Obtain Additional Past Anesthesia/Blood Transfusion Reaction / Comm: . Past Psychological History: Depression Smoking Status: Former smoker Past Alcohol Use History: None Reported Additional Past Alcohol Use History / Comment(s): smoked 1ppd from age 17 Past Drug Use History: None Reported - Past Family History Sister(s) Family Medical History: Cancer Additional Family Medical History / Comment(s): 2 sisters had breast ca, one sister had ovarian ca Daughter(s) Family Medical History: Cancer Additional Family Medical History / Comment(s): breast CA Medications and Allergies Home Medications Medication Instructions Recorded Confirmed Type Cholecalciferol [Vitamin D3 (25 50 mcg PO BID@0800,1600 03/09/17 03/01/21 History Mcg = 1000 Iu)] Multivitamins, Thera [Multivitamin 1 tab PO DAILY@0800 02/12/20 03/01/21 History (formulary)] Atorvastatin [Lipitor] 20 mg PO HS@199902/23/21 03/01/21 History Apixaban [Eliquis] 2.5 mg PO BID@0800,1600 03/01/21 03/01/21 History Atenolol [Tenormin] 50 mg PO DAILY@0800 03/01/21 03/01/21 History Cefuroxime Axetil [Ceftin] 500 mg PO BID@0800,1600 03/01/21 03/01/21 History Famotidine [Pepcid] 20 mg PO DAILY@0803/01/21 03/01/21 History Fluticasone Propionate [Flovent 1 puff INHALATION RT-BID@0800,1600 03/01/21 03/01/21 History Diskus] Glucosamine HCl/Chondroitin Haines 1 cap PO HS@199903/01/21 03/01/21 History [Glucosamine-Chondroitin Cap] Melatonin 3 mg PO HS@199903/01/21 03/01/21 History Oxymetazoline HCl [Afrin 0.05%] 2 spr NASAL TID@0800,1200,1800 03/01/21 03/01/21 History Verapamil Sr [Isoptin Sr] 180 mg PO HS@199903/01/21 03/01/21 History buPROPion XL [Wellbutrin Xl] 150 mg PO DAILY@79903/01/21 03/01/21 History Allergies Allergy/AdvReac Type Severity Reaction Status Date / Time No Known Allergies Allergy Verified 03/01/21 19:45 Surgical - Exam Vital Signs Temp Pulse Resp BP Pulse Ox 97.4 F L 146 H 18 103/81 89 L 03/01/21 19:08 03/01/21 19:08 03/01/21 19:08 03/01/21 19:08 03/01/21 19:08 Results - Labs 03/04/21 07:20 03/04/21 07:20 Abnormal Lab Results - Last 24 Hours (Table) 03/03/21 03/04/21 03/04/21 Range/Units 18:43 07:20 07:20 WBC 13.7 H (3.8-10.6) k/uL RBC 2.84 L (3.80-5.40) m/uL Hgb 9.2 L (11.4-16.0) gm/dL Hct 26.0 L (34.0-46.0) % Neutrophils # 10.2 H (1.3-7.7) k/uL Chloride 112 H (98-107) mmol/L Plasma Lactic Acid Lex 2.3 H* (0.7-2.0) mmol/L C-Reactive Protein 2.2 H (<1.0) mg/dL Total Protein 5.0 L (6.3-8.2) g/dL Albumin 2.5 L (3.5-5.0) g/dL Microbiology - Last 24 Hours (Table) 03/01/21 19:30 Blood Culture - Preliminary Blood No Growth after 48 hours Diabetes panel 03/04/21 Range/Units 07:20 Sodium 141 (137-145) mmol/L Potassium 3.5 (3.5-5.1) mmol/L Chloride 112 H (98-107) mmol/L Carbon Dioxide 22 (22-30) mmol/L BUN 15 (7-17) mg/dL Creatinine 0.95 (0.52-1.04) mg/dL Glucose 82 (74-99) mg/dL Calcium 8.7 (8.4-10.2) mg/dL AST 24 (14-36) U/L ALT 16 (4-34) U/L Alkaline Phosphatase 74 (38-126) U/L Total Protein 5.0 L (6.3-8.2) g/dL Albumin 2.5 L (3.5-5.0) g/dL Calcium panel 03/04/21 Range/Units 07:20 Calcium 8.7 (8.4-10.2) mg/dL Albumin 2.5 L (3.5-5.0) g/dL Pituitary panel 03/04/21 Range/Units 07:20 Sodium 141 (137-145) mmol/L Potassium 3.5 (3.5-5.1) mmol/L Chloride 112 H (98-107) mmol/L Carbon Dioxide 22 (22-30) mmol/L BUN 15 (7-17) mg/dL Creatinine 0.95 (0.52-1.04) mg/dL Glucose 82 (74-99) mg/dL Calcium 8.7 (8.4-10.2) mg/dL Adrenal panel 08/03/21 Range/Units 07:20 Sodium 141 (137-145) mmol/L Potassium 3.5 (3.5-5.1) mmol/L Chloride 112 H (98-107) mmol/L Carbon Dioxide 22 (22-30) mmol/L BUN 15 (7-17) mg/dL Creatinine 0.95 (0.52-1.04) mg/dL Glucose 82 (74-99) mg/dL Calcium 8.7 (8.4-10.2) mg/dL Total Bilirubin 0.7 (0.2-1.3) mg/dL AST 24 (14-36) U/L ALT 16 (4-34) U/L Alkaline Phosphatase 74 (38-126) U/L Total Protein 5.0 L (6.3-8.2) g/dL Albumin 2.5 L (3.5-5.0) g/dL
[2021-03-04 15:50] LABS: LDL Cholesterol,Calculated 73.6 mg/dL (0.0-131.0); VLDL Calculation 56.4 mg/dL (5.00-40.00)
--- NOTE | 2021-03-04 20:20 | P.PN ---
Progress Note - Text Progress Note Date: 03/04/21 History of presenting complaint This is a pleasant 80-year-old patient, Dr. Walter, with a known history of CVA with left-sided weakness, dementia, hypertension, hyperlipidemia, COPD, obstructive sleep apnea and history of breast cancer status post chemo and radiation, depression and previous history of smoking who is currently living at snf was brought to the hospital due to altered mental status. Patient was recently admitted to hospital status post fall after hitting her head. Patient did have extensive bruising on the face and around the eyes. Patient was also having nosebleed which was packed initially and was removed. No active bleeding was noted. Hemoglobin has been stable. Patient was also found to have tachycardia, atrial flutter and was started on verapamil dose increased. Continue on metoprolol. Patient is also on anticoagulation in the form of Eliquis. Patient also developed urinary tract infection and was discharged back to snf with antibiotic course. March 03: Patient is yesterday computed abdominal pain. Computed tomography scan of the abdomen was ordered. Today no abdominal pain. Was to eat more. Laying in bed. A bit tired. Spoke to patient's daughter Buck over the phone and gave her detailed update March 04: Patient having some loose stools. No abdominal pain. Liquid diet. Computed tomography scan as shown transverse colitis. On IV Unasyn. No nausea vomiting. Requesting diet to be advanced. Seen by surgery later this afternoon. Recommended outpatient colonoscopy and outpatient laparoscopic cholecystectomy. Wilmot to have hydropic gallbladder. Back in sinus rhythm. Rate controlled Review of systems: Was done for constitutional, cardiovascular, GI, pulmonary. relevant finding as above Active Medications Acetaminophen (Acetaminophen Tab 325 Mg Tab) 650 mg PO Q6HR PRN PRN Reason: Mild Pain or Fever > 100.5 Albuterol/Ipratropium (Ipratropium-Albuterol 3 Ml Neb) 3 ml INHALATION RT-Q4H PRN PRN Reason: Shortness Of Breath Or Wheezing Last Admin: 03/03/21 22:27 Dose: 3 ml Documented by: Apixaban (Apixaban 2.5 Mg Tablet) 2.5 mg PO BID@0800,1600 [facility]; Protocol Last Admin: 03/04/21 16:17 Dose: 2.5 mg Documented by: Atenolol (Atenolol 50 Mg Tab) 50 mg PO DAILY@0800 [facility] Last Admin: 03/04/21 08:17 Dose: 50 mg Documented by: Atorvastatin Calcium (Atorvastatin 20 Mg Tab) 20 mg PO HS@1999 [facility] Last Admin: 03/03/21 21:41 Dose: 20 mg Documented by: Bupropion HCl (Bupropion Xl 150 Mg Tab.Er.24h) 150 mg PO DAILY@0800 [facility] Last Admin: 03/04/21 08:17 Dose: 150 mg Documented by: Famotidine (Famotidine 20 Mg Tab) 20 mg PO DAILY@0800 [facility] Last Admin: 03/04/21 08:17 Dose: 20 mg Documented by: Fluticasone Propionate (Fluticasone 44 Mcg Inhaler) 1 puff INHALATION RT- BID@0800,1600 [facility] Last Admin: 03/04/21 18:47 Dose: 1 puff Documented by: Ampicillin Sodium/Sulbactam (Sodium 3 gm/ Sodium Chloride) 100 mls @ 200 mls/hr IVPB Q6HR [facility] Last Admin: 03/04/21 18:08 Dose: 200 mls/hr Documented by: Lactated Ringer's (Lactated Ringers) 1,000 mls @ 50 mls/hr IV .Q20H [facility] Last Admin: 03/04/21 08:15 Dose: 50 mls/hr Documented by: Melatonin (Melatonin 3 Mg Tablet) 3 mg PO HS@1999 [facility] Last Admin: 03/03/21 21:41 Dose: 3 mg Documented by: Miscellaneous Information (Potassium Replacement Protocol 1 Each Misc) 1 each MISCELLANE DAILY PRN; Protocol PRN Reason: Per Protocol Naloxone HCl (Naloxone 0.4 Mg/Ml 1 Ml Vial) 0.2 mg IV Q2M PRN PRN Reason: Opioid Reversal Pyridoxine HCl (Pyridoxine 50 Mg Tab) 50 mg PO DAILY [facility] Last Admin: 03/04/21 08:16 Dose: 50 mg Documented by: Sodium Bicarbonate (Sodium Bicarbonate Tab 650 Mg Tab) 650 mg PO TID [facility] Last Admin: 03/04/21 16:16 Dose: 650 mg Documented by: Verapamil HCl (Verapamil Sr 180 Mg Tablet.Er) 180 mg PO HS@1999 [facility] Last Admin: 03/03/21 21:41 Dose: 180 mg Documented by: On examination: VITAL SIGNS: 98.1, 80, 16, 142/79, 94% room air GENERAL APPEARANCE: Reclining in bed comfortable EYES: Pupils equal. Conjunctiva normal. Periorbital, forehead bruising NECK: JVD not raised. Mass not palpable. RESPIRATORY: Respiratory effort normal. Lungs decreased breath sounds CARDIOVASCULAR: Heart sounds irregular No edema. ABDOMEN: Soft. Liver and spleen not palpable. No tenderness. No mass palpable. PSYCHIATRY: Answering simple questions. Investigations: March 04: WBC 13.7 hemoglobin 9.2 potassium 3.5 creatinine 0.95 CRP 2.2 Computed tomography scan abdomen [March 03: Diffusely thickened distal transverse colon. Diverticulosis without evidence of dermatitis. Gallbladder distended. WBC 17.9 hemoglobin 10 platelets 386 potassium 3.4 bicarb 19. 25 creatinine 1.1 0 lactic acid 2.5 CRP 1.5 UA: Trace protein Stool for C. diff: Negative Carotid Doppler: No significant stenosis. EKG tracing: Atrial flutter dose to [address] segment depression Chest x-ray film: No infiltrates Urine culture: E. coli Assessment and plan: -Persistent atrial flutter: Controlled Cardizem drip was discontinued. Atenolol 50 mg. Verapamil SR 180 mg. Eliquis -Possible transverse colitis. IV Unasyn -Hypokalemia Replace. Follow labs - left hemiparesis from prior CVA -Essential hypertension Atenolol, verapamil -Hyperlipidemia Lipitor -Obstructive sleep apnea- uses BiPAP -COPD in a current smoker Follow clinically -Chronic gait dysfunction Uses walker -Acute kidney injury, ATN: Improving Patient's creatinine was 0.96 on February 24. Peaked at 2.15. Down to 0.95 -Acute metabolic acidosis from renal failure: Improved At by mouth sodium bicarbonate -Facial bruising secondary to being on anticoagulation and a fall Follow clinically -Depression On Wellbutrin XL -Chronic insomnia from medical conditions Melatonin. -Moderate cognitive impairment, likely from late onset Alzheimer's dementia Cutback IV fluids. Diet advanced. Keep IV Unasyn. DC bicarbonate. Heart rate controlled back in sinus rhythm.
[2021-03-04] MEDS: MELATONIN 3 MG TABLET PO SCH (20:27)
[2021-03-04] MEDS: ATORVASTATIN 20 MG TAB PO SCH (20:27)
[2021-03-04] MEDS: VERAPAMIL SR 180 MG TABLET.ER PO SCH (20:27)
[2021-03-05] MEDS: AMPICILLIN-SULBACTAM 3 GM in SODIUM CHLORIDE 0.9% 100 ML IVPB SCH ×4 (01:20→18:01)
[2021-03-05 07:48] LABS: Basophils # (A) 0.1 k/uL (0-0.2); Basophils % (A) 0 %; Eosinophils # (A) 0.3 k/uL (0-0.7); Eosinophils % (A) 2 %; HCT 29.1 % (34.0-46.0); HGB 10.2 gm/dL (11.4-16.0); Lymphocytes % (A) 16 %; MCH 31.8 pg (25.0-35.0); MCV 90.8 fL (80.0-100.0); Mean Platelet Volume 7.9; Monocytes # (A) 0.8 k/uL (0-1.0); Monocytes % (A) 6 %; Neutrophils # (A) 9.5 k/uL (1.3-7.7); Neutrophils % (A) 74 %; Platelet Count 391 k/uL (150-450); Poikilocytosis Slight; RDW 14.6 % (11.5-15.5); WBC 12.8 k/uL (3.8-10.6)
[2021-03-05] MEDS ORDERED: POTASSIUM CHLORIDE ER 20 MEQ TAB.ER PO STA (08:09)
[2021-03-05] MEDS: FLUTICASONE 44 MCG INHALER INHALATION SCH ×2 (08:09→19:49)
[2021-03-05] MEDS: atenoloL 50 MG TAB PO SCH (08:33)
[2021-03-05] MEDS: APIXABAN 2.5 MG TABLET PO SCH ×2 (08:33→15:37)
[2021-03-05] MEDS: PYRIDOXINE 50 MG TAB PO SCH (08:33)
[2021-03-05] MEDS: buPROPion XL 150 MG TAB.ER.24H PO SCH (08:33)
[2021-03-05] MEDS: FAMOTIDINE 20 MG TAB PO SCH (08:33)
[2021-03-05] MEDS: LACTATED RINGERS 1,000 ML IV SCH (08:34)
--- NOTE | 2021-03-05 12:45 | P.PN ---
Subjective Progress Note Date: 03/05/21 CHIEF COMPLAINT: Mental status change HISTORY OF PRESENT ILLNESS: Patient sitting up bed. She reports that her breakfast was great. Denies any abdominal pain. Denies any nausea or vomiting. Per nursing staff patient did have 2 loose stools yesterday. Afebrile. WBC 12.8 PHYSICAL EXAM: VITAL SIGNS: Reviewed. GENERAL: Well-developed in no acute distress. HEENT: No sclera icterus. Extraocular movements grossly intact. Moist buccal mucosa. Head is atraumatic, normocephalic. ABDOMEN: Soft. Nondistended. Nontender. NEUROLOGIC: Alert and oriented. Cranial nerves II through XII grossly intact. ASSESSMENT: 1. Possible colitis of the transverse colon 2. Hydropic gallbladder with sludge PLAN: -Continue low fat diet -Continue with conservative management -Recommend outpatient colonoscopy -Recommend outpatient laparoscopic cholecystectomy -No surgical intervention planned at this time -Continue antibiotics per ID Physician Wharf Labourer note has been reviewed by physician. Signing provider agrees with the documented findings, assessment, and plan of care. Objective - Vital Signs Vital signs: Vital Signs Temp 97.7 F 03/05/21 12:18 Pulse 61 03/05/21 12:18 Resp 16 03/05/21 12:18 BP 120/66 03/05/21 12:18 Pulse Ox 100 03/05/21 12:18 Intake & Output 03/04/21 03/05/21 03/05/21 18:59 06:59 18:59 Intake Total 240 480 Output Total 800 800 Balance -560 -800 480 Weight 91.5 kg Intake: Oral 240 480 Output: Urine 800 800 Other: Voiding Method Indwelling Catheter Indwelling Catheter Indwelling Catheter # Bowel Movements 2 - Labs CBC & Chem 7: 03/05/21 07:32 03/04/21 18:44 Labs: Abnormal Lab Results - Last 24 Hours (Table) 03/02/21 03/05/21 Range/Units 19:49 07:32 WBC 12.8 H (3.8-10.6) k/uL RBC 3.20 L (3.80-5.40) m/uL Hgb 10.2 L (11.4-16.0) gm/dL Hct 29.1 L (34.0-46.0) % Neutrophils # 9.5 H (1.3-7.7) k/uL Triglycerides 282.0 H (0.0-149.0) mg/dL VLDL Cholesterol, Calc 56.40 H (5.00-40.00) mg/dL HDL Cholesterol 26.0 L (40.0-60.0) mg/dL Microbiology - Last 24 Hours (Table) 03/01/21 19:30 Blood Culture - Preliminary Blood No Growth after 72 hours
[2021-03-05] MEDS: POTASSIUM CHLORIDE ER 20 MEQ TAB.ER PO SCH ×2 (15:37→17:15)
--- NOTE | 2021-03-05 16:53 | PN ---
PROGRESS NOTE DATE OF SERVICE: 03/05/2021 REASON FOR FOLLOWUP: Leukocytosis, colitis, possibly ischemic. INTERVAL HISTORY: The patient is afebrile. The patient is breathing comfortably. Denies having any chest pain or cough. No abdominal pain. No diarrhea. PHYSICAL EXAMINATION: Blood pressure 124/75, pulse of 54. Temperature is 97.8. She is 95% on room air. General description is an elderly female lying in bed in no distress. Respiratory system: Unlabored breathing, clear to auscultation anteriorly. Heart S1, S2. Regular rate and rhythm. Abdomen soft, no tenderness. LABORATORY DATA: Hemoglobin 10.1, white count 12.8. DIAGNOSTIC IMPRESSION AND PLAN: Patient with elevated white count multifactorial, this patient did have evidence of colitis concern for possible folliculitis. Patient is on Unasyn. Overall improvement. To continue and monitor clinical course closely. Continue supportive care. MMODL / IJN: [id number] /
--- NOTE | 2021-03-05 17:46 | P.PN ---
Progress Note - Text Progress Note Date: 03/05/21 History of presenting complaint This is a pleasant 80-year-old patient, Dr. Walter, with a known history of CVA with left-sided weakness, dementia, hypertension, hyperlipidemia, COPD, obstructive sleep apnea and history of breast cancer status post chemo and radiation, depression and previous history of smoking who is currently living [facility] was brought to the hospital due to altered mental status. Patient was recently admitted to hospital status post fall after hitting her head. Patient did have extensive bruising on the face and around the eyes. Patient was also having nosebleed which was packed initially and was removed. No active bleeding was noted. Hemoglobin has been stable. Patient was also found to have tachycardia, atrial flutter and was started on verapamil dose increased. Continue on metoprolol. Patient is also on anticoagulation in the form of Eliquis. Patient also developed urinary tract infection and was discharged back to [facility] with antibiotic course. March 03: Patient is yesterday computed abdominal pain. Computed tomography scan of the abdomen was ordered. Today no abdominal pain. Was to eat more. Laying in bed. A bit tired. Spoke to patient's daughter Buck over the phone and gave her detailed update March 04: Patient having some loose stools. No abdominal pain. Liquid diet. Computed tomography scan as shown transverse colitis. On IV Unasyn. No nausea vomiting. Requesting diet to be advanced. Seen by surgery later this afternoon. Recommended outpatient colonoscopy and outpatient laparoscopic cholecystectomy. [place] to have hydropic gallbladder. Back in sinus rhythm. Rate controlled March 05: No further diarrhea. No abdominal pain. Tolerating diet. Feels better. Review of systems: Was done for constitutional, cardiovascular, GI, pulmonary. relevant finding as above Active Medications Acetaminophen (Acetaminophen Tab 325 Mg Tab) 650 mg PO Q6HR PRN PRN Reason: Mild Pain or Fever > 100.5 Albuterol/Ipratropium (Ipratropium-Albuterol 3 Ml Neb) 3 ml INHALATION RT-Q4H PRN PRN Reason: Shortness Of Breath Or Wheezing Last Admin: 03/03/21 22:27 Dose: 3 ml Documented by: Apixaban (Apixaban 2.5 Mg Tablet) 2.5 mg PO BID@0800,1600 CABRERA; Protocol Last Admin: 03/05/21 15:37 Dose: 2.5 mg Documented by: Atenolol (Atenolol 50 Mg Tab) 50 mg PO DAILY@0800 [facility] Last Admin: 03/05/21 08:33 Dose: 50 mg Documented by: Atorvastatin Calcium (Atorvastatin 20 Mg Tab) 20 mg PO HS@1999 [facility] Last Admin: 03/04/21 20:27 Dose: 20 mg Documented by: Bupropion HCl (Bupropion Xl 150 Mg Tab.Er.24h) 150 mg PO DAILY@0800 [facility] Last Admin: 03/05/21 08:33 Dose: 150 mg Documented by: Famotidine (Famotidine 20 Mg Tab) 20 mg PO DAILY@0800 [facility] Last Admin: 03/05/21 08:33 Dose: 20 mg Documented by: Fluticasone Propionate (Fluticasone 44 Mcg Inhaler) 1 puff INHALATION RT-BID@08 00,1600 [facility] Last Admin: 03/05/21 08:09 Dose: 1 puff Documented by: Ampicillin Sodium/Sulbactam (Sodium 3 gm/ Sodium Chloride) 100 mls @ 200 mls/hr IVPB Q6HR [facility] Last Admin: 03/05/21 11:39 Dose: 200 mls/hr Documented by: Lactated Ringer's (Lactated Ringers) 1,000 mls @ 10 mls/hr IV .Q24H [facility] Last Admin: 03/05/21 08:34 Dose: 10 mls/hr Documented by: Melatonin (Melatonin 3 Mg Tablet) 3 mg PO HS@1999 [facility] Last Admin: 03/04/21 20:27 Dose: 3 mg Documented by: Miscellaneous Information (Potassium Replacement Protocol 1 Each Misc) 1 each MISCELLANE DAILY PRN; Protocol PRN Reason: Per Protocol Naloxone HCl (Naloxone 0.4 Mg/Ml 1 Ml Vial) 0.2 mg IV Q2M PRN PRN Reason: Opioid Reversal Pyridoxine HCl (Pyridoxine 50 Mg Tab) 50 mg PO DAILY [facility] Last Admin: 03/05/21 08:33 Dose: 50 mg Documented by: Verapamil HCl (Verapamil Sr 180 Mg Tablet.Er) 180 mg PO HS@1999 [facility] Last Admin: 03/04/21 20:27 Dose: 180 mg Documented by: On examination: VITAL SIGNS: 97.7, 61, 16, 120/66, 100% room air GENERAL APPEARANCE: Sitting up in a chair comfortable EYES: Pupils equal. Conjunctiva normal. Periorbital, forehead bruising NECK: JVD not raised. Mass not palpable. RESPIRATORY: Respiratory effort normal. Lungs decreased breath sounds CARDIOVASCULAR: Heart sounds irregular No edema. ABDOMEN: Soft. Liver and spleen not palpable. No tenderness. No mass palpable. PSYCHIATRY: Answering simple questions. Investigations: March 05: WBC 12.8 hemoglobin 10.2 March 04: WBC 13.7 hemoglobin 9.2 potassium 3.5 creatinine 0.95 CRP 2.2 Computed tomography scan abdomen [March 03: Diffusely thickened distal transverse colon. Diverticulosis without evidence of dermatitis. Gallbladder distended. WBC 17.9 hemoglobin 10 platelets 386 potassium 3.4 bicarb 19. 25 creatinine 1.10 lactic acid 2.5 CRP 1.5 UA: Trace protein Stool for C. diff: Negative Carotid Doppler: No significant stenosis. EKG tracing: Atrial flutter dose to [address] segment depression Chest x-ray film: No infiltrates Urine culture: E. coli Assessment and plan: -Persistent atrial flutter: Controlled Cardizem drip was discontinued. Atenolol 50 mg. Verapamil SR 180 mg. Eliquis -Possible transverse colitis: Improving. IV Unasyn -Hypokalemia Replace. Follow labs - left hemiparesis from prior CVA -Essential hypertension Atenolol, verapamil -Hyperlipidemia Lipitor -Obstructive sleep apnea- uses BiPAP -COPD in a current smoker Follow clinically -Chronic gait dysfunction Uses walker -Acute kidney injury, ATN: Improving Patient's creatinine was 0.96 on February 24. Peaked at 2.15. Down to 0.95 -Acute metabolic acidosis from renal failure: Improved At by mouth sodium bicarbonate -Facial bruising secondary to being on anticoagulation and a fall Follow clinically -Depression On Wellbutrin XL -Chronic insomnia from medical conditions Melatonin. -Moderate cognitive impairment, likely from late onset Alzheimer's dementia Keep IV Unasyn. For another 24 hours. Hopefully to be changed over to oral antibiotic and discharged tomorrow. Discussed with Dr. Robert from surgery.
[2021-03-05] MEDS: MELATONIN 3 MG TABLET PO SCH (20:28)
[2021-03-05] MEDS: VERAPAMIL SR 180 MG TABLET.ER PO SCH (20:28)
[2021-03-05] MEDS: ATORVASTATIN 20 MG TAB PO SCH (20:28)
[2021-03-06] MEDS: AMPICILLIN-SULBACTAM 3 GM in SODIUM CHLORIDE 0.9% 100 ML IVPB SCH ×3 (04:14→11:45)
[2021-03-06] MEDS: LACTATED RINGERS 1,000 ML IV SCH (08:47)
[2021-03-06] MEDS: FLUTICASONE 44 MCG INHALER INHALATION SCH (08:53)
[2021-03-06] MEDS: APIXABAN 2.5 MG TABLET PO SCH (08:56)
[2021-03-06] MEDS: atenoloL 50 MG TAB PO SCH (08:56)
[2021-03-06] MEDS: FAMOTIDINE 20 MG TAB PO SCH (08:56)
[2021-03-06] MEDS: PYRIDOXINE 50 MG TAB PO SCH (08:56)
[2021-03-06] MEDS: buPROPion XL 150 MG TAB.ER.24H PO SCH (08:56)
[2021-03-06 11:22] VITALS: BP 164/77; TEMP 97.7
--- NOTE | 2021-03-06 12:58 | P.PN ---
Subjective Progress Note Date: 03/06/21 CHIEF COMPLAINT: Mental status change HISTORY OF PRESENT ILLNESS: Patient sitting up bed. Patient denies any abdominal pain. She was able to eat all of her breakfast without any pain or nausea. She did have some diarrhea reported through the night. This now has resolved. Stool for C. diff was negative. She is scheduled for discharge today. Afebrile PHYSICAL EXAM: VITAL SIGNS: Reviewed. GENERAL: Well-developed in no acute distress. HEENT: No sclera icterus. Extraocular movements grossly intact. Moist buccal mucosa. Head is atraumatic, normocephalic. ABDOMEN: Soft. Nondistended. Nontender. NEUROLOGIC: Alert and oriented. Cranial nerves II through XII grossly intact. ASSESSMENT: 1. Possible colitis of the transverse colon 2. Hydropic gallbladder with sludge PLAN: -Patient can be discharge from surgical standpoint -Continue low fat diet -Recommend outpatient colonoscopy -Recommend outpatient laparoscopic cholecystectomy -No surgical intervention planned at this time -Continue antibiotics per ID Physician Pre Billing Specialist note has been reviewed by physician. Signing provider agrees with the documented findings, assessment, and plan of care. Objective - Vital Signs Vital signs: Vital Signs Temp 97.7 F 03/06/21 08:00 Pulse 66 03/06/21 08:00 Resp 16 03/06/21 08:00 BP 164/77 03/06/21 08:00 Pulse Ox 97 03/06/21 08:53 Intake & Output 03/05/21 03/06/21 03/06/21 18:59 06:59 18:59 Intake Total 480 Output Total 850 1400 1300 Balance -370 -1400 -1300 Weight 85.5 kg Intake: Oral 480 Output: Urine 850 1400 1300 Other: Voiding Method Indwelling Catheter Indwelling Catheter Indwelling Catheter # Bowel Movements 2 1 - Labs CBC & Chem 7: 03/05/21 07:32 03/05/21 21:26 Labs: Microbiology - Last 24 Hours (Table) 03/01/21 19:30 Blood Culture - Preliminary Blood No Growth after 96 hours
[2021-03-06 13:15] VITALS: RESP 14
[2021-03-06 14:56] VITALS: BMI 29.5
--- NOTE | 2021-03-06 15:45 | P.DS ---
Providers Date of admission: 03/01/21 20:25 Expected date of discharge: 03/06/21 Attending physician: Junaid Rojas Consults: 03/01/21 20:26 Consult Physician Routine Consulting Provider: Divina Sotelo Consult Reason/Comments: CVA, AMS Do you want consulting provider notified?: Yes Consult Physician Routine Consulting Provider: Jeanne Barrios Consult Reason/Comments: UTI Do you want consulting provider notified?: Yes 03/02/21 22:21 Consult Physician Routine Consulting Provider: Amrit Ferreira Consult Reason/Comments: Sinus tachycardia/cardizem gtt Do you want consulting provider notified?: Yes, Notify in am 03/03/21 17:47 Consult Physician Routine Consulting Provider: Benjamin Robert Consult Reason/Comments: Abdominal pain Do you want consulting provider notified?: Yes Primary care physician: Viktor [facility] Course: History of presenting complaint This is a pleasant 80-year-old patient, Dr. Walter, with a known history of CVA with left-sided weakness, dementia, hypertension, hyperlipidemia, COPD, obstructive sleep apnea and history of breast cancer status post chemo and radiation, depression and previous history of smoking who is currently living at residential was brought to the hospital due to altered mental status. Patient was recently admitted to hospital status post fall after hitting her head. Patient did have extensive bruising on the face and around the eyes. Patient was also having nosebleed which was packed initially and was removed. No active bleeding was noted. Hemoglobin has been stable. Patient was also found to have tachycardia, atrial flutter and was started on verapamil dose increased. Continue on metoprolol. Patient is also on anticoagulation in the form of Eliquis. Patient also developed urinary tract infection and was discharged back to residential with antibiotic course. Patient is found to have acute acute colitis. Put on IV Unasyn. Responded well. Also found over distended gallbladder. Seen by general surgery. He'll follow up with Dr. Robert's outpatient. Flutter fibrillation back into sinus rhythm. March 03: Patient is yesterday computed abdominal pain. Computed tomography scan of the abdomen was ordered. Today no abdominal pain. Was to eat more. Laying in bed. A bit tired. Spoke to patient's daughter Buck over the phone and gave her detailed update March 04: Patient having some loose stools. No abdominal pain. Liquid diet. Computed tomography scan as shown transverse colitis. On IV Unasyn. No nausea vomiting. Requesting diet to be advanced. Seen by surgery later this afternoon. Recommended outpatient colonoscopy and outpatient laparoscopic cholecystectomy. [place] to have hydropic gallbladder. Back in sinus rhythm. Rate controlled March 05: No further diarrhea. No abdominal pain. Tolerating diet. Feels better. March 06: Well. Tolerating diet. No abdominal pain. Had a bowel movement. Cleared by surgery. We will complete a course of oral Augmentin. Consultation: Dr. Robert from general surgery Dr. Barrios from [facility] On examination: VITAL SIGNS: 97.7, 80, 16, 164/77, 97% room air GENERAL APPEARANCE: Sitting up in a chair comfortable EYES: Pupils equal. Conjunctiva normal. Periorbital, forehead bruising NECK: JVD not raised. Mass not palpable. RESPIRATORY: Respiratory effort normal. Lungs decreased breath sounds CARDIOVASCULAR: Heart sounds irregular No edema. ABDOMEN: Soft. Liver and spleen not palpable. No tenderness. No mass palpable. PSYCHIATRY: Answering simple questions. Investigations: March 05: WBC 12.8 hemoglobin 10.2 March 04: WBC 13.7 hemoglobin 9.2 potassium 3.5 creatinine 0.95 CRP 2.2 Computed tomography scan abdomen [March 2: Diffusely thickened distal transverse colon. Diverticulosis without evidence of dermatitis. Gallbladder distended. WBC 17.9 hemoglobin 10 platelets 386 potassium 3.4 bicarb 19. 25 creatinine 1.10 lactic acid 2.5 CRP 1.5 UA: Trace protein Stool for C. diff: Negative Carotid Doppler: No significant stenosis. EKG tracing: Atrial flutter dose to [address] segment depression Chest x-ray film: No infiltrates Urine culture: E. coli Assessment and plan: -Persistent atrial flutter: Controlled Cardizem drip was discontinued. Atenolol 50 mg. Verapamil SR 180 mg. Eliquis -Possible transverse colitis: Improving. IV Unasyn. Complete course with Augmentin -Hypokalemia Replace. Follow labs - left hemiparesis from prior CVA -Essential hypertension Atenolol, verapamil -Hyperlipidemia Lipitor -Obstructive sleep apnea- uses BiPAP -COPD in a current smoker Follow clinically -Chronic gait dysfunction Uses walker -Acute kidney injury, ATN: Corrected Patient's creatinine was 0.96 on February 24. Peaked at 2.15. Down to 0.95 -Acute metabolic acidosis from renal failure: Improved At by mouth sodium bicarbonate -Facial bruising secondary to being on anticoagulation and a fall Follow clinically -Depression On Wellbutrin XL -Chronic insomnia from medical conditions Melatonin. -Moderate cognitive impairment, likely from late onset Alzheimer's dementia Disposition: [facility] Plan - Discharge Summary Discharge Rx Participant: Yes New Discharge Prescriptions: New Pyridoxine [Vitamin B-6] 50 mg PO DAILY #30 tab Amoxicillin/Potassium Clav [Augmentin 875-125 Tablet] 1 tab PO Q12HR #2 tab Continue Cholecalciferol [Vitamin D3 (25 Mcg = 1000 Iu)] 50 mcg PO BID@0800,1600 Multivitamins, Thera [Multivitamin (formulary)] 1 tab PO DAILY@0800 buPROPion XL [Wellbutrin XL] 150 mg PO DAILY@0800 Atenolol [Tenormin] 50 mg PO DAILY@0800 Glucosamine HCl/Chondroitin Haines [Glucosamine-Chondroitin Cap] 1 cap PO HS@1999 Fluticasone Propionate [Flovent Diskus] 1 puff INHALATION RT-BID@0800,1600 Atorvastatin [Lipitor] 20 mg PO HS@2000 Melatonin 3 mg PO HS@2000 Famotidine [Pepcid] 20 mg PO DAILY@0800 Verapamil Sr [Isoptin Sr] 180 mg PO HS@2000 Apixaban [Eliquis] 2.5 mg PO BID@0800,1600 Discontinued Cefuroxime Axetil [Ceftin] 500 mg PO BID@0800,1600 Oxymetazoline HCl [Afrin 0.05%] 2 spr NASAL TID@0800,1200,1800 Discharge Medication List Cholecalciferol [Vitamin D3 (25 Mcg = 1000 Iu)] 50 mcg PO BID@0800,1600 03/09/17 [History] Multivitamins, Thera [Multivitamin (formulary)] 1 tab PO DAILY@0800 02/12/20 [History] Atorvastatin [Lipitor] 20 mg PO HS@199902/23/21 [History] Apixaban [Eliquis] 2.5 mg PO BID@0800,1600 03/01/21 [History] Atenolol [Tenormin] 50 mg PO DAILY@0800 03/01/21 [History] Famotidine [Pepcid] 20 mg PO DAILY@0800 03/01/21 [History] Fluticasone Propionate [Flovent Diskus] 1 puff INHALATION RT-BID@0800,1600 03/01/21 [History] Glucosamine HCl/Chondroitin Haines [Glucosamine-Chondroitin Cap] 1 cap PO HS@199903/01/21 [History] Melatonin 3 mg PO HS@199903/01/21 [History] Verapamil Sr [Isoptin Sr] 180 mg PO HS@199903/01/21 [History] buPROPion XL [Wellbutrin XL] 150 mg PO DAILY@0803/01/21 [History] Amoxicillin/Potassium Clav [Augmentin 875-125 Tablet] 1 tab PO Q12HR #2 tab 03/06/21 [Rx] Pyridoxine [Vitamin B-6] 50 mg PO DAILY #30 tab 03/06/21 [Rx] Follow up Appointment(s)/Referral(s): Viktor Walter DO [Primary Care Provider] - 1-2 days Amrit Ferreira MD [STAFF PHYSICIAN] - 2 Weeks Benjamin Robert MD [STAFF PHYSICIAN] - 1 Week Activity/Diet/Wound Care/Special Instructions: low fat diet
[2021-03-06 15:56] VITALS: PULSE 66
--- NOTE | 2021-03-06 17:19 | PN ---
PROGRESS NOTE DATE OF SERVICE: 03/06/2021. REASON FOR FOLLOWUP: Leukocytosis, possible ischemic colitis. INTERVAL HISTORY: The patient is afebrile. The patient is feeling much better. She is breathing comfortably. Denies having any chest pain or shortness of breath or cough. No abdominal pain. PHYSICAL EXAMINATION: Blood pressure 154/77, pulse of 80, temperature 97.7. She is 97% on room air. General description is an elderly female up in the chair in no distress. Respiratory system: Unlabored breathing. Clear to auscultation anteriorly. Heart S1, S2. Regular rate. Abdomen: Soft. No tenderness. LABS: No new labs have been obtained today. Blood culture remains to be negative. DIAGNOSTIC IMPRESSION AND PLAN: Patient with fever, leukocytosis. The patient did have evidence of transverse colon colitis, possibly ischemic. Overall improvement on Unasyn. Finish therapy with a short course of oral Augmentin and close outpatient followup. MMODL / IJN: [id number] /
== END 2021-03-06 16:31 | DRG 308 ==
LOC: EC 19:02 → 3SCARD 20:25
PROVIDERS: ADMIT Hospitalist; ATTEND Hospitalist
DX: I48.3 Typical atrial flutter (principal); G93.41 Metabolic encephalopathy; E87.0 Hyperosmolality and hypernatremia; E87.2 Acidosis; I69.354 Hemiplegia and hemiparesis following cerebral infarction affecting left non-dominant side; K82.1 Hydrops of gallbladder; N17.9 Acute kidney failure, unspecified; N39.0 Urinary tract infection, site not specified; I48.91 Unspecified atrial fibrillation; I47.1 Supraventricular tachycardia; I49.3 Ventricular premature depolarization; E78.5 Hyperlipidemia, unspecified; E86.0 Dehydration; E87.6 Hypokalemia; G30.1 Alzheimer's disease with late onset; F02.80 Dementia in other diseases classified elsewhere, unspecified severity, without behavioral disturbance, psychotic disturbance, mood disturbance, and anxiety; I12.9 Hypertensive chronic kidney disease with stage 1 through stage 4 chronic kidney disease, or unspecified chronic kidney disease; Z87.891 Personal history of nicotine dependence; N18.9 Chronic kidney disease, unspecified; F32.9 Major depressive disorder, single episode, unspecified; J44.9 Chronic obstructive pulmonary disease, unspecified; Z85.3 Personal history of malignant neoplasm of breast; F51.04 Psychophysiologic insomnia; Z66 Do not resuscitate; G47.33 Obstructive sleep apnea (adult) (pediatric); I45.10 Unspecified right bundle-branch block; K52.9 Noninfective gastroenteritis and colitis, unspecified; K57.90 Diverticulosis of intestine, part unspecified, without perforation or abscess without bleeding; R04.0 Epistaxis; T45.515A Adverse effect of anticoagulants, initial encounter; Z99.89 Dependence on other enabling machines and devices; R29.709 NIHSS score 9; S05.12XA Contusion of eyeball and orbital tissues, left eye, initial encounter; S05.11XA Contusion of eyeball and orbital tissues, right eye, initial encounter; M19.90 Unspecified osteoarthritis, unspecified site; B96.20 Unspecified Escherichia coli [E. coli] as the cause of diseases classified elsewhere; W19.XXXA Unspecified fall, initial encounter; Z91.81 History of falling; R32 Unspecified urinary incontinence; R26.9 Unspecified abnormalities of gait and mobility; Y92.129 Unspecified place in nursing home as the place of occurrence of the external cause; Z79.01 Long term (current) use of anticoagulants; Z79.51 Long term (current) use of inhaled steroids; Z79.899 Other long term (current) drug therapy; Z80.3 Family history of malignant neoplasm of breast; Z80.41 Family history of malignant neoplasm of ovary; Z87.440 Personal history of urinary (tract) infections; Z90.710 Acquired absence of both cervix and uterus; Z92.21 Personal history of antineoplastic chemotherapy; Z92.3 Personal history of irradiation; Z96.611 Presence of right artificial shoulder joint; Z96.651 Presence of right artificial knee joint; Z90.13 Acquired absence of bilateral breasts and nipples; Z96.89 Presence of other specified functional implants; Z98.890 Other specified postprocedural states
CPT/HCPCS: 36415; 70450; 71045; 74176; 76705; 80048; 80053; 80061; 81003; 83605; 83735; 84132; 84145; 84484; 85025; 85610; 85730; 86140; 87040; 87324; 93005; 93880; 94640; 94760; 96361; 96374; 99285

== ENCOUNTER 2021-04-01 06:05 | Inpatient (IN) | payer MEDICARE, OTHER ==
[2021-03-27 10:55] VITALS: BMI 28.9
[~2021-04-01 06:05] MED LIST changes: +ACETAMINOPHEN TAB 500 MG TAB PO PRN; -DEXAMETHASONE SOD PHOSPHATE 10 MG/ML 1 ML VIAL IV ONE; +DEXAMETHASONE SOD PHOSPHATE 4 MG/ML 1 ML VIAL IV ONE; +HEPARIN SODIUM,PORCINE/PF 5,000 UNIT/0.5 ML SYRINGE SQ PRN; -HYDROmorphone 0.5 MG/0.5 ML SYRINGE IVP PRN; +MIDAZOLAM 2 MG/2 ML VIAL IV PRN; -fentaNYL (PF) 50 MCG/ML 2 ML AMP IV PRN; -fentaNYL (PF) 50 MCG/ML 2 ML AMP IVP PRN
[2021-04-01] MEDS ORDERED: HYDROmorphone 0.5 MG/0.5 ML SYRINGE IVP PRN ×2 (07:00→08:55)
[2021-04-01] MEDS: LACTATED RINGERS 1,000 ML IV SCH ×2 (07:23→13:26)
[2021-04-01] MEDS ORDERED: ROCURONIUM 10 MG/ML (5 ML VIAL) IV ONE (07:55)
[2021-04-01] MEDS ORDERED: PROPOFOL 10 MG/ML 20 ML VIAL IV ONE (07:55)
[2021-04-01] MEDS ORDERED: LIDOCAINE 1% INJ 10MG/ML (20 ML MDV) ONE (07:55)
[2021-04-01] MEDS ORDERED: fentaNYL (PF) 50 MCG/ML 2 ML AMP ONE (07:55)
[2021-04-01] MEDS ORDERED: NEOSTIGMINE 1 MG/ML 10 ML VIAL ONE (07:55)
[2021-04-01] MEDS ORDERED: GLYCOPYRROLATE 0.2 MG/ML 2 ML VIAL ONE (07:55)
[2021-04-01] MEDS ORDERED: LABETALOL 5 MG/ML VIAL MDV ONE (07:55)
[2021-04-01] MEDS ORDERED: LACTATED RINGERS 1,000 ML IV ONE ×2 (07:58→08:55)
[2021-04-01] MEDS ORDERED: LIDOCAINE 1%-EPI 1:100,000 20 ML VIAL SQ ONE (08:23)
--- NOTE | 2021-04-01 08:50 | P.GSHP ---
History of Present Illness H&P Date: 04/01/21 Chief Complaint: Cholelithiasis This a 80-year-old female who presents today for laparoscopic cholecystectomy. Patient has had complaints of right quadrant pain. Her ultrasound shows evidence of cholelithiasis Past Medical History Past Medical History: Cancer, COPD, CVA/TIA, Dementia, Hyperlipidemia, Hypertension, Osteoarthritis (OA), Renal Disease, Sleep Apnea/CPAP/BIPAP Additional Past Medical History / Comment(s): Hx breast ca x2 left breast- radiation and chemo 2003 & 2008, bi pap machine , hx of CVA with left side weakness, DJD, Recent hospitalization for colitis, UTI & Renal failure , tachycardia & atrial flutter. , hx falls., incontinent .,up with assistance- gait unsteady, speech clear, feeds self- occasional cough when eating, some confusion. ,resides at [facility], daughter has Durable POA. 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 left thumb surgery Past Anesthesia/Blood Transfusion Reactions: No Reported Reaction Additional Past Anesthesia/Blood Transfusion Reaction / Comment(s): NO PROBLEMS WITH ANESTHESIA PER DAUGHTER KIERAN & HERNANDEZ. Past Psychological History: Depression Smoking Status: Former smoker Past Alcohol Use History: None Reported Additional Past Alcohol Use History / Comment(s): smoked 1ppd from age 17 Past Drug Use History: None Reported - Past Family History Sister(s) Family Medical History: Cancer Additional Family Medical History / Comment(s): 2 sisters had breast ca, one sister had ovarian ca Daughter(s) Family Medical History: Cancer Additional Family Medical History / Comment(s): breast CA Medications and Allergies Home Medications Medication Instructions Recorded Confirmed Type Cholecalciferol [Vitamin D3 (25 50 mcg PO DAILY 03/09/17 03/27/21 History Mcg = 1000 Iu)] Multivitamins, Thera [Multivitamin 1 tab PO DAILY 02/12/20 03/27/21 History (formulary)] Atorvastatin [Lipitor] 20 mg PO HS 02/23/21 03/27/21 History Apixaban [Eliquis] 2.5 mg PO BID 03/01/21 03/27/21 History Atenolol [Tenormin] 50 mg PO DAILY 03/01/21 03/27/21 History Famotidine [Pepcid] 20 mg PO DAILY 03/01/21 03/27/21 History Fluticasone Propionate [Flovent 1 puff INHALATION RT-BID 03/01/21 03/27/21 History Diskus] Glucosamine HCl/Chondroitin Haines 1 cap PO DAILY 03/01/21 03/27/21 History [Glucosamine-Chondroitin Cap] Melatonin 3 mg PO HS 03/01/21 03/27/21 History Pyridoxine [Vitamin B-6] 50 mg PO DAILY #30 tab 03/06/21 03/27/21 Rx Verapamil HCl [Verapamil ER] 180 mg PO HS 03/27/21 03/27/21 History buPROPion SR [Wellbutrin SR] 150 mg PO DAILY 03/27/21 03/27/21 History Allergies Allergy/AdvReac Type Severity Reaction Status Date / Time No Known Allergies Allergy Verified 04/01/21 06:51 Surgical - Exam Vital Signs Temp Pulse Resp BP Pulse Ox 97.5 F L 68 16 143/76 93 L 04/01/21 07:03 04/01/21 07:03 04/01/21 07:03 04/01/21 07:03 04/01/21 07:03 - General well developed, well nourished, no distress - Eyes PERRL - ENT normal pinna - Neck no masses - Respiratory normal expansion - Cardiovascular Rhythm: regular - Abdomen Abdomen: soft, non tender Assessment and Plan Assessment: Cholelithiasis. We'll perform laparoscopic cholecystectomy
[2021-04-01] MEDS ORDERED: NALOXONE 0.4 MG/ML 1 ML VIAL IV PRN (08:55)
[2021-04-01] MEDS ORDERED: HYDROcodone/APAP 5-325MG 1 EACH TAB PO PRN (08:55)
[2021-04-01] MEDS ORDERED: ONDANSETRON 4 MG/2 ML VIAL IVP PRN (08:55)
--- NOTE | 2021-04-01 08:55 | P.OP ---
Date of Procedure: 04/01/21 Preoperative Diagnosis: Cholelithiasis Postoperative Diagnosis: Cholelithiasis Procedure(s) Performed: Laparoscopic cholecystectomy Anesthesia: VLAD Surgeon: Benjamin Robert Pathology: other (Gallbladder) Condition: stable (5) Disposition: PACU Description of Procedure: The patient was placed on the operating table. The patient received a general endotracheal tube anesthesia. The patients abdomen was prepped and draped in the usual sterile fashion. Through an infraumbilical stab incision, the fascia of the anterior abdominal wall was grasped with a pair of Kochers and then the Veress needle was placed in the peritoneal cavity. Position of the Veress needle was confirmed with positive drop test. The abdomen was then insufflated. After adequate insufflation, the 10 mm trocar was placed in the peritoneal cavity. Following this the laparoscope was placed in the peritoneal cavity. The patient was placed in the head-up, right side up position and then a 5 mm trocar was placed in the right lateral and right subcostal position under direct visualization. A 8 mm trocar was placed in the epigastric position. The gallbladder was grasped in the fundus and infundibulum. Traction on the gallbladder was placed in the lateral and the cephalad positions. The triangle of Calot was visualized.. The cystic duct was bluntly dissected until the union of the cystic duct and common bile duct was seen. A critical view of safety was achieved. The cystic duct was then divided and sealed with the Harmonic scissors. A PDS Endoloop was then placed throughout the cystic duct stump. The cystic artery divided and sealed with the Harmonic scissors. The gallbladder was then removed from the liver bed using Harmonic scissors. The gallbladder was then extracted through the epigastric port site. Operative field was checked for any bleeding spots and Harmonic scissors was used to coagulate the liver bed. The abdomen was irrigated. The trocars were removed. The skin was closed using interrupted 3-0 Vicryl suture. Dermabond dressing were applied. The patient tolerated the procedure well.
[2021-04-01] MEDS ORDERED: SODIUM CHLORIDE 0.9% 1,000 ML IV ONE (09:26)
--- NOTE | 2021-04-01 18:55 | P.CONS ---
History of Present Illness - Reason for Consult Consult date: 04/01/21 Medical management Requesting physician: Benjamin Robert - Chief Complaint Cholecystectomy - History of Present Illness History of presenting complaint This is a pleasant 80-year-old patient, Dr. Walter, with a known history of CVA with left-sided weakness, dementia, hypertension, flutter fibrillation, colonic diverticulosis, hyperlipidemia, COPD, obstructive sleep apnea and history of breast cancer status post chemo and radiation, depression and previous history of smoking who is currently living at [facility]. Patient was recently discharged from the hospital March pain swelling the diagnosis of acute colitis. That improved. Also found to have a hydropic gallbladder. Patient now presented with surgical intervention for the same. Has undergone laparoscopic cholecystectomy by Dr. Robert. Postprocedure laying in bed. Rather sedated and lethargic. Though arousable. Appears comfortable. Not able to really give much of a history currently. On nasal cannula. Review of systems cannot be done this patient is postop rather sedated Past medical history to include: CVA with left-sided weakness, dementia, hypertension, flutter fibrillation, hyperlipidemia, COPD, obstructive sleep apnea, breast cancer with history of chemo and radiation, depression, acute colitis, DJD urinary incontinence, needs gait assistance, colonic diverticulosis Social history: Smoked a pack a day from age 17. No alcohol. Currently at [facility]. Family history: 2 sisters had breast cancer. One sister and ovarian cancer Physical examination: VITAL SIGNS: Afebrile, 66, 74, 14, 97% on room air GENERAL: BMI 29.2, laying in bed, lethargic but arousable]. Venodyne boots. EYES: Pupils equal. Conjunctiva normal. HEENT: External appearance of nose and ears normal, oral cavity grossly normal. NECK: JVD unable to assess; masses not palpable. HEART: First and second heart sounds are normal; no edema. LUNGS: Respiratory rate normal; decreased breath sounds. ABDOMEN: Soft, nontender, liver spleen not palpable, no masses palpable. PSYCH: Lethargic, not able to assessl. NEUROLOGICAL: Cranial nerves grossly intact; no facial asymmetry, power and sensation grossly intact. LYMPHATICS: No lymph nodes palpable in the axilla and neck Assessment and plan: -Hydropic gallbladder followed by laparoscopic cholecystectomy By Dr. Robert. -Persistent atrial flutter: Controlled Resume Atenolol 50 mg. Verapamil SR 180 mg. Eliquis - left hemiparesis from prior CVA -Essential hypertension Atenolol, verapamil -Hyperlipidemia Lipitor -Obstructive sleep apnea- uses BiPAP -COPD in a current smoker Follow clinically -Chronic gait dysfunction Uses walker -Depression On Wellbutrin XL -Chronic insomnia from medical conditions Melatonin. -Moderate cognitive impairment, likely from late onset Alzheimer's dementia Resume home medications. Telemetry. Check baseline labs. Diet as per surgery. Patient has Venodyne boots for DVT prophylaxis. Thank you Dr. Robert Past Medical History Past Medical History: Cancer, COPD, CVA/TIA, Dementia, Hyperlipidemia, Hypertension, Osteoarthritis (OA), Renal Disease, Sleep Apnea/CPAP/BIPAP Additional Past Medical History / Comment(s): Hx breast ca x2 left breast- radiation and chemo 2003 & 2008, bi pap machine , hx of CVA with left side weakness, DJD, Recent hospitalization for colitis, UTI & Renal failure , tachycardia & atrial flutter. , hx falls., incontinent .,up with assistance- gait unsteady, speech clear, feeds self- occasional cough when eating, some confusion. ,resides at [facility], daughter has Durable POA. 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 left thumb surgery Past Anesthesia/Blood Transfusion Reactions: No Reported Reaction Additional Past Anesthesia/Blood Transfusion Reaction / Comm: NO PROBLEMS WITH ANESTHESIA PER DAUGHTER KIERAN & HERNANDEZ. Past Psychological History: Depression Smoking Status: Current every day smoker Past Alcohol Use History: None Reported Additional Past Alcohol Use History / Comment(s): smoked 1ppd from age 17 Past Drug Use History: None Reported - Past Family History Sister(s) Family Medical History: Cancer Additional Family Medical History / Comment(s): 2 sisters had breast ca, one sister had ovarian ca Daughter(s) Family Medical History: Cancer Additional Family Medical History / Comment(s): breast CA Medications and Allergies Home Medications Medication Instructions Recorded Confirmed Type Cholecalciferol [Vitamin D3 (25 50 mcg PO DAILY 03/09/17 03/27/21 History Mcg = 1000 Iu)] Multivitamins, Thera [Multivitamin 1 tab PO DAILY 02/12/20 03/27/21 History (formulary)] Atorvastatin [Lipitor] 20 mg PO HS 02/23/21 03/27/21 History Apixaban [Eliquis] 2.5 mg PO BID 03/01/21 03/27/21 History Atenolol [Tenormin] 50 mg PO DAILY 03/01/21 03/27/21 History Famotidine [Pepcid] 20 mg PO DAILY 03/01/21 03/27/21 History Fluticasone Propionate [Flovent 1 puff INHALATION RT-BID 03/01/21 03/27/21 History Diskus] Glucosamine HCl/Chondroitin Haines 1 cap PO DAILY 03/01/21 03/27/21 History [Glucosamine-Chondroitin Cap] Melatonin 3 mg PO HS 03/01/21 03/27/21 History Pyridoxine [Vitamin B-6] 50 mg PO DAILY #30 tab 03/06/21 03/27/21 Rx Verapamil HCl [Verapamil ER] 180 mg PO HS 03/27/21 03/27/21 History buPROPion SR [Wellbutrin SR] 150 mg PO DAILY 03/27/21 03/27/21 History Allergies Allergy/AdvReac Type Severity Reaction Status Date / Time No Known Allergies Allergy Verified 04/01/21 06:51 Physical Exam Vitals: Vital Signs Temp Pulse Pulse Resp BP BP BP 04/01/21 14:00 73 193/75 04/01/21 13:30 74 154/85 04/01/21 13:00 61 168/81 04/01/21 12:45 53 L 160/76 04/01/21 12:30 54 L 168/83 04/01/21 12:15 97.5 F L 55 L 18 154/79 04/01/21 11:20 52 L 17 178/80 04/01/21 10:50 59 L 16 177/79 04/01/21 10:35 55 L 16 162/81 04/01/21 10:20 56 L 16 170/78 04/01/21 10:05 60 16 150/80 04/01/21 09:50 64 16 163/82 04/01/21 09:35 56 L 16 174/81 04/01/21 09:20 57 L 16 162/74 04/01/21 09:05 61 16 152/70 04/01/21 08:50 96.8 F L 68 14 160/72 04/01/21 07:03 97.5 F L 68 16 143/76 Pulse Ox 04/01/21 14:00 04/01/21 13:30 04/01/21 13:00 04/01/21 12:45 04/01/21 12:30 04/01/21 12:15 97 04/01/21 11:20 97 04/01/21 10:50 96 04/01/21 10:35 92 L 04/01/21 10:20 94 L 04/01/21 10:05 97 04/01/21 09:50 97 04/01/21 09:35 98 04/01/21 09:20 99 04/01/21 09:05 96 04/01/21 08:50 94 L 04/01/21 07:03 93 L Intake and Output 04/01/21 04/01/21 04/01/21 06:59 14:59 22:59 Intake Total 950 400 Output Total 5 Balance 945 400 Intake: IV 950 Intake, IV Titration 400 Amount Lactated Ringers 1,000 ml 400 @ 50 mls/hr IV .Q20H ONE Rx#:[id number] Output: Estimated Blood Loss 5 Other: Weight 84.55 kg 84.55 kg
[2021-04-01] MEDS: FLUTICASONE 44 MCG INHALER INHALATION SCH (20:46)
[2021-04-01] MEDS ORDERED: VERAPAMIL SR 180 MG TABLET.ER PO SCH (21:00)
[2021-04-01] MEDS: MELATONIN 3 MG TABLET PO SCH (21:18)
[2021-04-01] MEDS: ATORVASTATIN 20 MG TAB PO SCH (21:18)
[2021-04-01] MEDS: ENOXAPARIN 40 MG/0.4 ML SYRINGE SQ SCH (21:19)
[2021-04-02] MEDS: FLUTICASONE 44 MCG INHALER INHALATION SCH ×2 (08:37→19:04)
[2021-04-02 09:10] LABS: Basophils % (A) 0 %; Eosinophils # (A) 0.3 k/uL (0-0.7); Eosinophils % (A) 2 %; HCT 34.1 % (34.0-46.0); HGB 11.8 gm/dL (11.4-16.0); Lymphocytes # (A) 1.4 k/uL (1.0-4.8); Lymphocytes % (A) 9 %; MCH 30.6 pg (25.0-35.0); MCHC 34.6 g/dL (31.0-37.0); MCV 88.4 fL (80.0-100.0); Mean Platelet Volume 7.9; Monocytes # (A) 1.1 k/uL (0-1.0); Monocytes % (A) 7 %; Neutrophils # (A) 12.6 k/uL (1.3-7.7); Neutrophils % (A) 81 %; Platelet Count 389 k/uL (150-450); Poikilocytosis Slight; RBC 3.86 m/uL (3.80-5.40); RDW 14.5 % (11.5-15.5); WBC 15.6 k/uL (3.8-10.6)
[2021-04-02 09:26] LABS: African American GFR (CKD) 54 (>60 ml/min/1.73 sqM); Anion Gap 8 mmol/L; Blood Urea Nitrogen 19 mg/dL (7-17); Calcium 10.1 mg/dL (8.4-10.2); Carbon Dioxide 27 mmol/L (22-30); Chloride 102 mmol/L (98-107); Glucose 106 mg/dL (74-99); Non-African American GFR(CKD) 47 (>60 ml/min/1.73 sqM); Potassium 4.5 mmol/L (3.5-5.1); Sodium 137 mmol/L (137-145)
[2021-04-02] MEDS: atenoloL 50 MG TAB PO SCH ×2 (09:26→09:35)
[2021-04-02] MEDS: PYRIDOXINE 50 MG TAB PO SCH (09:27)
[2021-04-02] MEDS: FAMOTIDINE 20 MG TAB PO SCH (09:27)
[2021-04-02] MEDS: MULTIVITAMINS, THERA 1 EACH TAB PO SCH (09:27)
[2021-04-02] MEDS: CHOLECALCIFEROL 25 MCG (1000 IU) TABLET PO SCH (09:27)
[2021-04-02] MEDS: buPROPion SR 150 MG TABLET.ER PO SCH (09:27)
--- NOTE | 2021-04-02 13:03 | P.PN ---
Subjective Progress Note Date: 04/02/21 CHIEF COMPLAINT: Abdominal pain HISTORY OF PRESENT ILLNESS: Patient followed for cholelithiasis. She is status post laparoscopic cholecystectomy postop day #1. She reports her pain is controlled. She denies any nausea vomiting. She is tolerating regular diet. She has been bradycardic heart rate in the 40s. Medicine service has consult cardiology. Patient does take a beta eilda at home. afebrile. White count elevated at 15.6 patient did receive a dose of Decadron PHYSICAL EXAM: VITAL SIGNS: Reviewed. GENERAL: Well-developed in no acute distress. HEENT: No sclera icterus. Extraocular movements grossly intact. Moist buccal mucosa. Head is atraumatic, normocephalic. ABDOMEN: Soft. Nondistended. Incision sites clean dry and intact NEUROLOGIC: Alert and oriented. Cranial nerves II through XII grossly intact. ASSESSMENT: 1. Cholelithiasis status post laparoscopic cholecystectomy PLAN: -Continue regular diet -continue pain medication as needed -Encouraged patient to ambulate -Encouraged patient to use incentive spirometer -DVT prophylaxis Lovenox and GI prophylaxis Pepcid Physician Administrative Office Manager note has been reviewed by physician. Signing provider agrees with the documented findings, assessment, and plan of care. Objective - Vital Signs Vital signs: Vital Signs Temp 98 F 04/02/21 11:20 Pulse 44 L 04/02/21 11:20 Resp 16 04/02/21 11:20 BP 122/69 04/02/21 11:20 Pulse Ox 97 04/02/21 11:20 Intake & Output 04/01/21 04/02/21 04/02/21 18:59 06:59 18:59 Intake Total 1350 350 Output Total 5 Balance 1345 350 Weight 84.55 kg Intake: IV 950 Intake, IV Titration 400 Amount Lactated Ringers 1,000 ml 400 @ 50 mls/hr IV .Q20H ONE Rx#:[id number] Oral 350 Output: Estimated Blood Loss 5 Other: Voiding Method Diaper Diaper Incontinent Incontinent # Voids 4 - Labs CBC & Chem 7: 04/02/21 08:13 04/02/21 08:13 Labs: Abnormal Lab Results - Last 24 Hours (Table) 04/02/21 04/02/21 Range/Units 08:13 08:13 WBC 15.6 H (3.8-10.6) k/uL Neutrophils # 12.6 H (1.3-7.7) k/uL Monocytes # 1.1 H (0-1.0) k/uL BUN 19 H (7-17) mg/dL Creatinine 1.13 H (0.52-1.04) mg/dL Glucose 106 H (74-99) mg/dL
--- NOTE | 2021-04-02 17:29 | P.PN ---
Progress Note - Text Progress Note Date: 04/02/21 - Chief Complaint Cholecystectomy - History of Present Illness History of presenting complaint This is a pleasant 80-year-old patient, Dr. Walter, with a known history of CVA with left-sided weakness, dementia, hypertension, flutter fibrillation, colonic diverticulosis, hyperlipidemia, COPD, obstructive sleep apnea and history of breast cancer status post chemo and radiation, depression and previous history of smoking who is currently living at [facility]. Patient was recently discharged from the hospital March pain swelling the diagnosis of acute colitis. That improved. Also found to have a hydropic gallbladder. Patient now presented with surgical intervention for the same. Has undergone laparoscopic cholecystectomy by Dr. Robert. Postprocedure laying in bed. Rather sedated and lethargic. Though arousable. Appears comfortable. Not able to really give much of a history currently. On nasal cannula. April [id number]: Sitting up in a chair. Minimal abdominal pain. Tolerating a diet. Heart rate did go down to the 40s. Cardiology consulted. Had a run of A. fib this morning. Back in sinus rhythm Review of systems cannot be done this patient is postop rather sedated Active Medications Hydrocodone Bitart/Acetaminophen (Hydrocodone/Apap 5-325mg 1 Each Tab) 1 each PO Q6HR PRN PRN Reason: Pain Amlodipine Besylate (Amlodipine 5 Mg Tab) 5 mg PO [facility] Atenolol (Atenolol 50 Mg Tab) 50 mg PO DAILY [facility] Last Admin: 04/02/21 09:35 Dose: Not Given Documented by: Atorvastatin Calcium (Atorvastatin 20 Mg Tab) 20 mg PO [facility] Last Admin: 04/01/21 21:18 Dose: 20 mg Documented by: Bupropion HCl (Bupropion Sr 150 Mg Tablet.Er) 150 mg PO DAILY [facility] Last Admin: 04/02/21 09:27 Dose: 150 mg Documented by: Cholecalciferol (Cholecalciferol 25 Mcg (1000 Iu) Tablet) 50 mcg PO DAILY [facility] Last Admin: 04/02/21 09:27 Dose: 50 mcg Documented by: Enoxaparin Sodium (Enoxaparin 40 Mg/0.4 Ml Syringe) 40 mg SQ HS [facility] Stop: 05/01/21 21:01 Last Admin: 04/01/21 21:19 Dose: 40 mg Documented by: Famotidine (Famotidine 20 Mg Tab) 20 mg PO DAILY [facility] Last Admin: 04/02/21 09:27 Dose: 20 mg Documented by: Fluticasone Propionate (Fluticasone 44 Mcg Inhaler) 1 puff INHALATION RT-BID [facility] Last Admin: 04/02/21 08:37 Dose: 1 puff Documented by: Melatonin (Melatonin 3 Mg Tablet) 3 mg PO HS [facility] Last Admin: 04/01/21 21:18 Dose: 3 mg Documented by: Multivitamins (Multivitamins, Thera 1 Each Tab) 1 each PO DAILY [facility] Last Admin: 04/02/21 09:27 Dose: 1 each Documented by: Naloxone HCl (Naloxone 0.4 Mg/Ml 1 Ml Vial) 0.2 mg IV Q2M PRN PRN Reason: Opioid Reversal Stop: 05/01/21 08:56 Ondansetron HCl (Ondansetron 4 Mg/2 Ml Vial) 4 mg IVP Q6HR PRN PRN Reason: Nausea And Vomiting Stop: 05/01/21 08:56 Pyridoxine HCl (Pyridoxine 50 Mg Tab) 50 mg PO DAILY [facility] Last Admin: 04/02/21 09:27 Dose: 50 mg Documented by: Past medical history to include: CVA with left-sided weakness, dementia, hypertension, flutter fibrillation, hyperlipidemia, COPD, obstructive sleep apnea, breast cancer with history of chemo and radiation, depression, acute colitis, DJD urinary incontinence, needs gait assistance, colonic diverticulosis Social history: Smoked a pack a day from age 17. No alcohol. Currently at [facility]. Family history: 2 sisters had breast cancer. One sister and ovarian cancer Physical examination: VITAL SIGNS: 98.1, 44, 16, 122/69, 77% GENERAL: Sitting up in a chair, awake, but tired Venodyne boots. EYES: Pupils equal. Conjunctiva normal. HEENT: External appearance of nose and ears normal, oral cavity grossly normal. NECK: JVD unable to assess; masses not palpable. HEART: First and second heart sounds are normal; no edema. LUNGS: Respiratory rate normal; decreased breath sounds. ABDOMEN: Soft, minimal tender, liver spleen not palpable, no masses palpable. PSYCH: Awake answer simple questions INVESTIGATIONS, reviewed in the clinical context: WBC 15.6 hemoglobin 11.8 potassium 4.52 and 19 creatinine 1.13 Assessment and plan: -Hydropic gallbladder followed by laparoscopic cholecystectomy By Dr. Robert. -Paroxysmal atrial flutter: Controlled Resume Atenolol 50 mg. Verapamil SR 180 mg. Eliquis -Episode of bradycardia DC Tenormin. - left hemiparesis from prior CVA -Essential hypertension verapamil -Hyperlipidemia Lipitor -Obstructive sleep apnea- uses BiPAP -COPD in a current smoker Follow clinically -Chronic gait dysfunction Uses walker -Depression On Wellbutrin XL -Chronic insomnia from medical conditions Melatonin. -Moderate cognitive impairment, likely from late onset Alzheimer's dementia DC Tenormin. Continue other medications. Consult cardiology. Consider decreasing the dose of beta elida resuming tomorrow at a smaller dose Thank you Dr. Robert
[2021-04-02] MEDS: ENOXAPARIN 40 MG/0.4 ML SYRINGE SQ SCH (20:47)
[2021-04-02] MEDS: ATORVASTATIN 20 MG TAB PO SCH (20:47)
[2021-04-02] MEDS: amLODIPine 5 MG TAB PO SCH (20:47)
[2021-04-02] MEDS: MELATONIN 3 MG TABLET PO SCH (20:47)
[2021-04-03] MEDS ORDERED: DILTIAZEM DRIP BOLUS FROM BAG 1 MG SOLN IV ONE (01:17)
[2021-04-03] MEDS: DILTIAZEM 125 MG in SODIUM CHLORIDE 0.9% 100 ML IV SCH ×2 (01:45→16:36)
[2021-04-03] MEDS: LACTATED RINGERS 1,000 ML IV SCH ×3 (01:45→15:35)
[2021-04-03 04:48] LABS: Magnesium 1.8 mg/dL (1.5-2.4)
[2021-04-03] MEDS: FLUTICASONE 44 MCG INHALER INHALATION SCH ×2 (07:14→20:08)
[2021-04-03 08:00] LABS: Basophils % (A) 0 %; Eosinophils # (A) 0.6 k/uL (0-0.7); Eosinophils % (A) 6 %; HCT 32.9 % (34.0-46.0); HGB 11.3 gm/dL (11.4-16.0); Lymphocytes # (A) 2.1 k/uL (1.0-4.8); Lymphocytes % (A) 22 %; MCH 30.5 pg (25.0-35.0); MCHC 34.3 g/dL (31.0-37.0); MCV 88.7 fL (80.0-100.0); Mean Platelet Volume 7.3; Monocytes # (A) 0.8 k/uL (0-1.0); Monocytes % (A) 8 %; Neutrophils # (A) 5.8 k/uL (1.3-7.7); Neutrophils % (A) 62 %; Platelet Count 368 k/uL (150-450); Poikilocytosis Slight; RDW 14.6 % (11.5-15.5); WBC 9.4 k/uL (3.8-10.6)
[2021-04-03 08:17] LABS: African American GFR (CKD) 64 (>60 ml/min/1.73 sqM); Anion Gap 8 mmol/L; Blood Urea Nitrogen 15 mg/dL (7-17); Calcium 9.4 mg/dL (8.4-10.2); Carbon Dioxide 25 mmol/L (22-30); Chloride 103 mmol/L (98-107); Glucose 80 mg/dL (74-99); Non-African American GFR(CKD) 55 (>60 ml/min/1.73 sqM); Potassium 3.9 mmol/L (3.5-5.1); Sodium 136 mmol/L (137-145)
[2021-04-03] MEDS: APIXABAN 2.5 MG TABLET PO SCH ×2 (09:58→20:50)
[2021-04-03] MEDS: atenoloL 50 MG TAB PO SCH (09:59)
[2021-04-03] MEDS: MULTIVITAMINS, THERA 1 EACH TAB PO SCH (11:05)
[2021-04-03] MEDS: buPROPion SR 150 MG TABLET.ER PO SCH (11:05)
[2021-04-03] MEDS: CHOLECALCIFEROL 25 MCG (1000 IU) TABLET PO SCH (11:05)
[2021-04-03] MEDS: FAMOTIDINE 20 MG TAB PO SCH (11:05)
[2021-04-03] MEDS: PYRIDOXINE 50 MG TAB PO SCH (11:06)
--- NOTE | 2021-04-03 11:37 | P.PN ---
Subjective Progress Note Date: 04/03/21 CHIEF COMPLAINT: Abdominal pain HISTORY OF PRESENT ILLNESS: Patient is status post laparoscopic cholecystectomy postop day #2. Patient required transfer to the [facility] floor due to A. fib with RVR. She's been seen by cardiology. She was placed on Cardizem drip. They've switched her over to atenolol. Patient lying in bed comfortably. She reports her pain is controlled. Denies any nausea or vomiting. She has had flatus. Afebrile. WBC has normalized from 15.6-9.4 PHYSICAL EXAM: VITAL SIGNS: Reviewed. GENERAL: Well-developed in no acute distress. HEENT: No sclera icterus. Extraocular movements grossly intact. Moist buccal mucosa. Head is atraumatic, normocephalic. ABDOMEN: Soft. Nondistended. Incision sites clean dry and intact NEUROLOGIC: Alert and oriented. Cranial nerves II through XII grossly intact. ASSESSMENT: 1. Cholelithiasis status post laparoscopic cholecystectomy PLAN: -Continue regular diet -continue pain medication as needed -Encouraged patient to ambulate -Encouraged patient to use incentive spirometer -Await cardiology recommendations -Possible discharge tomorrow if medically stable -Continue to work with PT OT -DVT prophylaxis Lovenox and GI prophylaxis Pepcid Physician Construction Rigger note has been reviewed by physician. Signing provider agrees with the documented findings, assessment, and plan of care. Objective - Vital Signs Vital signs: Vital Signs Temp 97.7 F 04/03/21 08:06 Pulse 115 H 04/03/21 09:30 Resp 14 04/03/21 11:16 BP 121/59 04/03/21 08:06 Pulse Ox 91 L 04/03/21 08:06 Intake & Output 04/02/21 04/03/21 04/03/21 18:59 06:59 18:59 Intake Total 240 Output Total 900 550 Balance -900 -310 Weight 84 kg Intake: Oral 240 Output: Urine 900 550 Other: Voiding Method Diaper External Catheter External Catheter Incontinent # Voids 1 - Labs CBC & Chem 7: 04/03/21 07:23 04/03/21 07:23 Labs: Abnormal Lab Results - Last 24 Hours (Table) 04/03/21 04/03/21 Range/Units 07:23 07:23 RBC 3.70 L (3.80-5.40) m/uL Hgb 11.3 L (11.4-16.0) gm/dL Hct 32.9 L (34.0-46.0) % Sodium 136 L (137-145) mmol/L
--- NOTE | 2021-04-03 12:52 | P.CRDCN ---
History of Present Illness Consult date: 04/03/21 History of present illness: HISTORY OF PRESENT ILLNESS: This is a 80-year-old female with a past medical history significant for paroxysmal atrial fibrillation, hypertension, and hyperlipidemia. Patient is to follow in the office with Dr. Dee but has not been seen since June 2019. We have been asked to see the patient in consultation for bradycardia. Patient examined at the bedside. Patient is status post laparoscopic cholecystectomy on 04/01/[address] Robert. Patient was found to be bradycardic yesterday with a heart rate in the 40s. Her atenolol was held yesterday. Overnight, the patient went into A. fib with RVR. She was started on a Cardizem drip. The patient was in sinus mechanism this morning however at the time of my examination she is back in atrial fibrillation with a heart rate in the 110s. She remains on a Cardizem drip at 5 mg an hour. She denies chest pain or pressure. She denies shortness of breath. She denies any palpitations. She denies having any dizziness or lightheadedness yesterday when she was bradycardic. EKG reveals A. fib with RVR Laboratory data: WBC 9.4. Hemoglobin 11.3. Platelet count 268. Sodium 136. Potassium 3.9. BUN 15. Creatinine 0.98. TSH 2.070. Current home cardiac medications include verapamil 180 mg at night, Eliquis 2.5 mg twice a day, atenolol 50 mg daily, Lipitor 20 mg at night Patient had an echo completed in January 2021 revealing ejection fraction 50-55%. Mild tricuspid regurgitation. REVIEW OF SYSTEMS: At the time of my exam: CONSTITUTIONAL: Denies fever or chills. HEENT: Denies blurred vision, vision changes, or eye pain. Denies hemoptysis CARDIOVASCULAR: Denies chest pain. Denies orthopnea. Denies PND. Denies palpitations RESPIRATORY: Denies shortness of breath. GASTROINTESTINAL: Denies abdominal pain. Denies nausea or vomiting. HEMATOLOGIC: Denies bleeding disorders. GENITOURINARY: Denies any blood in urine. SKIN: Denies pruitis. Denies rash. PHYSICAL EXAM: VITAL SIGNS: Reviewed. GENERAL: Well-developed in no acute distress. HEENT: Head is normocephalic. Pupils are equal, round. Sclerae anicteric. Mucous membranes of the mouth are moist. Neck supple. No JVD or thyromegaly LUNGS: Respirations even and unlabored. Lungs essentially clear to auscultation bilaterally. HEART: Mildly tachycardic. Irregular rate and rhythm. S1 and S2 heard. ABDOMEN: Soft. Nondistended. Nontender. EXTREMITIES: Normal range of motion. No clubbing or cyanosis. Peripheral pulses intact. No lower extremity edema NEUROLOGIC: Awake and alert. Oriented x 3. ASSESSMENT: Cholelithiasis, status post laparoscopic cholecystectomy Paroxysmal atrial fibrillation with RVR, on anticoagulation with Eliquis Asymptomatic bradycardia Hypertension Hyperlipidemia PLAN: No need to repeat echocardiogram as this was performed in January 2021 Continue to hold verapamil Continue atenolol 50 mg daily Wean off Cardizem drip if heart rate allows Resume Eliquis Continue telemetry monitoring as there is concern of tachybradycardia syndrome Further recommendations pending patient course Nurse practitioner note has been reviewed by physician. Signing provider agrees with the documented findings, assessment, and plan of care. Past Medical History Past Medical History: Cancer, COPD, CVA/TIA, Dementia, Hyperlipidemia, Hypertension, Osteoarthritis (OA), Renal Disease, Sleep Apnea/CPAP/BIPAP Additional Past Medical History / Comment(s): Hx breast ca x2 left breast- radi ation and chemo 2003 & 2008, bi pap machine , hx of CVA with left side weakness, DJD, Recent hospitalization for colitis, UTI & Renal failure , tachycardia & atrial flutter. , hx falls., incontinent .,up with assistance- gait unsteady, speech clear, feeds self- occasional cough when eating, some c onfusion. ,resides at [facility], daughter has Durable POA. 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 left thumb surgery Past Anesthesia/Blood Transfusion Reactions: No Reported Reaction Additional Past Anesthesia/Blood Transfusion Reaction / Comment(s): NO PROBLEMS WITH ANESTHESIA PER DAUGHTER KIERAN & HERNANDEZ. Past Psychological History: Depression Smoking Status: Current every day smoker Past Alcohol Use History: None Reported Additional Past Alcohol Use History / Comment(s): smoked 1ppd from age 17 Past Drug Use History: None Reported - Past Family History Sister(s) Family Medical History: Cancer Additional Family Medical History / Comment(s): 2 sisters had breast ca, one sister had ovarian ca Daughter(s) Family Medical History: Cancer Additional Family Medical History / Comment(s): breast CA Medications and Allergies Home Medications Medication Instructions Recorded Confirmed Type Cholecalciferol [Vitamin D3 (25 50 mcg PO DAILY 03/09/17 03/27/21 History Mcg = 1000 Iu)] Multivitamins, Thera [Multivitamin 1 tab PO DAILY 02/12/20 03/27/21 History (formulary)] Atorvastatin [Lipitor] 20 mg PO HS 02/23/21 03/27/21 History Apixaban [Eliquis] 2.5 mg PO BID 03/01/21 03/27/21 History Atenolol [Tenormin] 50 mg PO DAILY 03/01/21 03/27/21 History Famotidine [Pepcid] 20 mg PO DAILY 03/01/21 03/27/21 History Fluticasone Propionate [Flovent 1 puff INHALATION RT-BID 03/01/21 03/27/21 History Diskus] Glucosamine HCl/Chondroitin Haines 1 cap PO DAILY 03/01/21 03/27/21 History [Glucosamine-Chondroitin Cap] Melatonin 3 mg PO HS 03/01/21 03/27/21 History Pyridoxine [Vitamin B-6] 50 mg PO DAILY #30 tab 03/06/21 03/27/21 Rx Verapamil HCl [Verapamil ER] 180 mg PO HS 03/27/21 03/27/21 History buPROPion SR [Wellbutrin SR] 150 mg PO DAILY 03/27/21 03/27/21 History Allergies Allergy/AdvReac Type Severity Reaction Status Date / Time No Known Allergies Allergy Verified 04/01/21 06:51 Physical Exam Vitals: Vital Signs Temp Pulse Pulse Resp BP BP Pulse Ox 04/03/21 11:16 14 04/03/21 09:30 115 H 16 04/03/21 08:06 97.7 F 64 14 121/59 91 L 04/03/21 04:00 98.5 F 121 H 18 127/89 93 L 04/03/21 02:00 106 H 16 04/03/21 00:18 115 H 167/50 04/02/21 20:08 98.2 F 55 L 16 136/72 97 Intake and Output 04/02/21 04/03/21 04/03/21 22:59 06:59 14:59 Intake Total 341.333 Output Total 900 550 Balance -900 -208.667 Intake: Intake, IV Titration 101.333 Amount Diltiazem 125 mg In 101.333 Sodium Chloride 0.9% 100 ml @ 10 MG/HR 10 mls/hr IV .[id number] [facility] Rx#: [id number] Oral 240 Output: Urine 900 550 Other: Voiding Method Diaper External Catheter External Catheter Incontinent # Voids 1 Weight 84 kg Results 04/03/21 07:23 04/03/21 07:23 CBC 04/03/21 Range/Units 07:23 WBC 9.4 (3.8-10.6) k/uL RBC 3.70 L (3.80-5.40) m/uL Hgb 11.3 L (11.4-16.0) gm/dL Hct 32.9 L (34.0-46.0) % Plt Count 368 (150-450) k/uL Comprehensive Metabolic Panel 04/03/21 Range/Units 07:23 Sodium 136 L (137-145) mmol/L Potassium 3.9 (3.5-5.1) mmol/L Chloride 103 (98-107) mmol/L Carbon Dioxide 25 (22-30) mmol/L BUN 15 (7-17) mg/dL Creatinine 0.98 (0.52-1.04) mg/dL Glucose 80 (74-99) mg/dL Calcium 9.4 (8.4-10.2) mg/dL Current Medications Generic Name Dose Route Start Last Admin Trade Name Freq PRN Reason Stop Dose Admin Hydrocodone Bitart/Acetaminophen 1 each 04/02/21 13:35 Hydrocodone/Apap 5-325mg 1 Each Tab PO Q6HR PRN Pain Amlodipine Besylate 5 mg 04/02/21 21:00 04/02/21 20:47 Amlodipine 5 Mg Tab PO 5 mg HS [facility] Administration Apixaban 2.5 mg 04/03/21 09:30 04/03/21 09:58 Apixaban 2.5 Mg Tablet PO 2.5 mg BID [facility] Administration Protocol Atenolol 50 mg 04/02/21 09:00 04/03/21 09:59 Atenolol 50 Mg Tab PO 50 mg DAILY [facility] Administration Atorvastatin Calcium 20 mg 04/01/21 21:00 04/02/21 20:47 Atorvastatin 20 Mg Tab PO 20 mg HS [facility] Administration Bupropion HCl 150 mg 04/02/21 09:00 04/03/21 11:05 Bupropion Sr 150 Mg Tablet.Er PO 150 mg DAILY [facility] Administration Cholecalciferol 50 mcg 04/02/21 09:00 04/03/21 11:05 Cholecalciferol 25 Mcg (1000 Iu) Tablet PO 50 mcg DAILY [facility] Administration Enoxaparin Sodium 40 mg 04/01/21 21:00 04/02/21 20:47 Enoxaparin 40 Mg/0.4 Ml Syringe SQ 05/01/21 21:01 40 mg HS [facility] Administration Famotidine 20 mg 04/02/21 09:00 04/03/21 11:05 Famotidine 20 Mg Tab PO 20 mg DAILY [facility] Administration Fluticasone Propionate 1 puff 04/01/21 20:00 04/03/21 07:14 Fluticasone 44 Mcg Inhaler INHALATION 1 puff RT-BID [facility] Administration Lactated Ringer's 1,000 mls @ 75 mls/hr 04/02/21 17:30 04/03/21 11:53 Lactated Ringers IV Not Given .[id number] [facility] Diltiazem HCl 125 mg/ Sodium 125 mls @ 10 mls/hr 04/03/21 01:30 04/03/21 11:53 Chloride IV 0 mg/hr .[id number] [facility] 0 mls/hr Infusion 10 MG/HR Melatonin 3 mg 04/01/21 21:00 04/02/21 20:47 Melatonin 3 Mg Tablet PO 3 mg HS [facility] Administration Multivitamins 1 each 04/02/21 09:00 04/03/21 11:05 Multivitamins, Thera 1 Each Tab PO 1 each DAILY [facility] Administration Naloxone HCl 0.2 mg 04/01/21 08:55 Naloxone 0.4 Mg/Ml 1 Ml Vial IV 05/01/21 08:56 Q2M PRN Opioid Reversal Ondansetron HCl 4 mg 04/01/21 08:55 Ondansetron 4 Mg/2 Ml Vial IVP 05/01/21 08:56 Q6HR PRN Nausea And Vomiting Pyridoxine HCl 50 mg 04/02/21 09:00 04/03/21 11:06 Pyridoxine 50 Mg Tab PO 50 mg DAILY [facility] Administration Intake and Output 04/02/21 04/03/21 04/03/21 22:59 06:59 14:59 Intake Total 341.333 Output Total 900 550 Balance -900 -208.667 Intake: Intake, IV Titration 101.333 Amount Diltiazem 125 mg In 101.333 Sodium Chloride 0.9% 100 ml @ 10 MG/HR 10 mls/hr IV .[id number] [facility] Rx#: [id number] Oral 240 Output: Urine 900 550 Other: Voiding Method Diaper External Catheter External Catheter Incontinent # Voids 1 Weight 84 kg 04/03/21 07:23 04/03/21 07:23
--- NOTE | 2021-04-03 16:40 | P.PN ---
Progress Note - Text Progress Note Date: 04/03/21 - Chief Complaint Cholecystectomy History of presenting complaint This is a pleasant 80-year-old patient, Dr. Walter, with a known history of CVA with left-sided weakness, dementia, hypertension, flutter fibrillation, colonic diverticulosis, hyperlipidemia, COPD, obstructive sleep apnea and history of breast cancer status post chemo and radiation, depression and previous history of smoking who is currently living at [facility]. Patient was recently discharged from the hospital March pain swelling the diagnosis of acute colitis. That improved. Also found to have a hydropic gallbladder. Patient now presented with surgical intervention for the same. Has undergone laparoscopic cholecystectomy by Dr. Robert. Postprocedure laying in bed. Rather sedated and lethargic. Though arousable. Appears comfortable. Not able to really give much of a history currently. On nasal cannula. April [id number]: Sitting up in a chair. Minimal abdominal pain. Tolerating a diet. Heart rate did go down to the 40s. Cardiology consulted. Had a run of A. fib this morning. Back in sinus rhythm 04/03/2021: Patient is moved to the cardiology floor yesterday. Initially bradycardic. Admitted back in sinus rhythm. This morning went into A. fib with rapid ventricular rate. Verapamil had been held. Tenormin resumed by cardiology. We'll also put back on a Cardizem drip. Patient a bit tired. No chest pain Review of systems: Was done for constitutional, cardiovascular, GI, pulmonary. relevant finding as above Active Medications Hydrocodone Bitart/Acetaminophen (Hydrocodone/Apap 5-325mg 1 Each Tab) 1 each PO Q6HR PRN PRN Reason: Pain Amlodipine Besylate (Amlodipine 5 Mg Tab) 5 mg PO HS [facility] Last Admin: 04/02/21 20:47 Dose: 5 mg Documented by: Apixaban (Apixaban 2.5 Mg Tablet) 2.5 mg PO BID [facility]; Protocol Last Admin: 04/03/21 09:58 Dose: 2.5 mg Documented by: Atenolol (Atenolol 50 Mg Tab) 50 mg PO DAILY [facility] Last Admin: 04/03/21 09:59 Dose: 50 mg Documented by: Atorvastatin Calcium (Atorvastatin 20 Mg Tab) 20 mg PO HS [facility] Last Admin: 04/02/21 20:47 Dose: 20 mg Documented by: Bupropion HCl (Bupropion Sr 150 Mg Tablet.Er) 150 mg PO DAILY [facility] Last Admin: 04/03/21 11:05 Dose: 150 mg Documented by: Cholecalciferol (Cholecalciferol 25 Mcg (1000 Iu) Tablet) 50 mcg PO DAILY [facility] Last Admin: 04/03/21 11:05 Dose: 50 mcg Documented by: Enoxaparin Sodium (Enoxaparin 40 Mg/0.4 Ml Syringe) [address] [facility] Stop: 05/01/21 21:01 Last Admin: 04/02/21 20:47 Dose: 40 mg Documented by: Famotidine (Famotidine 20 Mg Tab) 20 mg PO DAILY [facility] Last Admin: 04/03/21 11:05 Dose: 20 mg Documented by: Fluticasone Propionate (Fluticasone 44 Mcg Inhaler) 1 puff INHALATION RT-BID [facility] Last Admin: 04/03/21 07:14 Dose: 1 puff Documented by: Lactated Ringer's (Lactated Ringers) 1,000 mls @ 75 mls/hr IV .[id number] [facility] Last Admin: 04/03/21 15:35 Dose: 75 mls/hr Documented by: Diltiazem HCl 125 mg/ Sodium (Chloride) 125 mls @ 10 mls/hr IV .[id number] [facility] Last Infusion: 04/03/21 15:32 Dose: 10 mg/hr, 10 mls/hr Documented by: Melatonin (Melatonin 3 Mg Tablet) 3 mg PO HS [facility] Last Admin: 04/02/21 20:47 Dose: 3 mg Documented by: Multivitamins (Multivitamins, Thera 1 Each Tab) 1 each PO DAILY [facility] Last Admin: 04/03/21 11:05 Dose: 1 each Documented by: Naloxone HCl (Naloxone 0.4 Mg/Ml 1 Ml Vial) 0.2 mg IV Q2M PRN PRN Reason: Opioid Reversal Stop: 05/01/21 08:56 Ondansetron HCl (Ondansetron 4 Mg/2 Ml Vial) 4 mg IVP Q6HR PRN PRN Reason: Nausea And Vomiting Stop: 05/01/21 08:56 Pyridoxine HCl (Pyridoxine 50 Mg Tab) 50 mg PO DAILY [facility] Last Admin: 09/02/21 11:06 Dose: 50 mg Documented by: Past medical history to include: CVA with left-sided weakness, dementia, hypertension, flutter fibrillation, hyperlipidemia, COPD, obstructive sleep apnea, breast cancer with history of chemo and radiation, depression, acute colitis, DJD urinary incontinence, needs gait assistance, colonic diverticulosis Social history: Smoked a pack a day from age 17. No alcohol. Currently at [facility]. Family history: 2 sisters had breast cancer. One sister and ovarian cancer Physical examination: VITAL SIGNS: 97.8, 119, 16, 138/95, 93% on 2 L GENERAL: Laying in bed, awake. EYES: Pupils equal. Conjunctiva normal. HEENT: External appearance of nose and ears normal, oral cavity grossly normal. NECK: JVD unable to assess; masses not palpable. HEART: Irregular heart sounds; no edema. LUNGS: Respiratory rate normal; decreased breath sounds. ABDOMEN: Soft, minimal tender, liver spleen not palpable, no masses palpable. PSYCH: Awake answer simple questions INVESTIGATIONS, reviewed in the clinical context: April 03: WBC 9.4 hemoglobin 11.3 platelets 368 potassium 3.9 creatinine 0.98 Telemetry strip was reviewed by me: Erin danielle Uncontrolled WBC 15.6 hemoglobin 11.8 potassium 4.52 and 19 creatinine 1.13 Assessment and plan: -Paroxysmal atrial flutter/fibrillation: Uncontrolled with rapid ventricular rate Atenolol 50 mg. Verapamil SR 180 mg-discontinued. Eliquis. IV Cardizem drip -Hydropic gallbladder followed by laparoscopic cholecystectomy By Dr. Robert. -Episode of bradycardia Verapamil discontinued - left hemiparesis from prior CVA -Essential hypertension Atenolol -Hyperlipidemia Lipitor -Obstructive sleep apnea- uses BiPAP -COPD in a current smoker Follow clinically -Chronic gait dysfunction Uses walker -Depression On Wellbutrin XL -Chronic insomnia from medical conditions Melatonin. -Moderate cognitive impairment, likely from late onset Alzheimer's dementia Patient placed on IV Cardizem drip. Atenolol resume. Verapamil discontinued. Discussed with the patient. On eliquis. Decreased IV fluids Thank you Dr. Robert
[2021-04-03] MEDS: MELATONIN 3 MG TABLET PO SCH (20:50)
[2021-04-03] MEDS: amLODIPine 5 MG TAB PO SCH (20:50)
[2021-04-03] MEDS: ENOXAPARIN 40 MG/0.4 ML SYRINGE SQ SCH (20:50)
[2021-04-03] MEDS: ATORVASTATIN 20 MG TAB PO SCH (20:50)
[2021-04-04] MEDS: FLUTICASONE 44 MCG INHALER INHALATION SCH ×2 (08:08→19:24)
[2021-04-04] MEDS: PYRIDOXINE 50 MG TAB PO SCH (08:14)
[2021-04-04] MEDS: FAMOTIDINE 20 MG TAB PO SCH (08:14)
[2021-04-04] MEDS: buPROPion SR 150 MG TABLET.ER PO SCH (08:14)
[2021-04-04] MEDS: MULTIVITAMINS, THERA 1 EACH TAB PO SCH (08:14)
[2021-04-04] MEDS: atenoloL 50 MG TAB PO SCH (08:14)
[2021-04-04] MEDS: APIXABAN 2.5 MG TABLET PO SCH ×2 (08:15→19:47)
[2021-04-04] MEDS: CHOLECALCIFEROL 25 MCG (1000 IU) TABLET PO SCH (08:20)
--- NOTE | 2021-04-04 10:53 | P.PN ---
Subjective Progress Note Date: 04/04/21 Principal diagnosis: Paroxysmal atrial fibrillation The patient was seen this morning. She is a 80-year-old female patient who was admitted to the hospital and underwent laparoscopic cholecystectomy. We consulted to see the patient for the management of atrial fibrillation. She is known to have paroxysmal atrial fibrillation and she is on oral anticoagulation. The patient was seen this morning. She denies any symptoms of chest pain or chest discomfort. She was on Cardizem and she was experiencing intermittent episodes of sinus pauses with the longest of 30 seconds. Cardizem is often currently she is only on atenolol 50 mg by mouth daily. We'll continue monitoring the heart rhythm and consider the possible need for pacemaker if she continues to experience these episodes of sinus pauses beach she to be on beta elida or calcium channel elida for the atrial fibrillation. We'll continue oral anticoagulation. Objective - Vital Signs Vital signs: Vital Signs Temp 98.0 F 04/04/21 07:35 Pulse 87 04/04/21 09:00 Resp 16 04/04/21 09:00 BP 170/80 04/04/21 07:35 Pulse Ox 96 04/04/21 07:35 Intake & Output 04/03/21 04/04/21 04/04/21 18:59 06:59 18:59 Intake Total 712.000 180 Output Total 1375 100 Balance -663.000 -100 180 Weight 82.5 kg Intake: Intake, IV Titration 112.000 Amount Diltiazem 125 mg In 112.000 Sodium Chloride 0.9% 100 ml @ 10 MG/HR 10 mls/hr IV .[id number] [facility] Rx#: [id number] Oral 600 180 Output: Urine 1375 100 Other: Voiding Method External Catheter External Catheter # Bowel Movements 0 - Constitutional General appearance: Present: no acute distress - Respiratory Respiratory: bilateral: CTA - Cardiovascular Rhythm: regular Heart sounds: normal: S1, S2 Abnormal Heart Sounds: Present: systolic murmur - Labs CBC & Chem 7: 04/03/21 07:23 04/03/21 07:23 Assessment and Plan Assessment: Assessment #1 coronary artery disease and status post laparoscopic cholecystectomy #2 paroxysmal atrial fibrillation #3 evidence of tachybradycardia syndrome #4 multiple comorbid conditions Plan #1 continue the current medical regimen #2 continue the current dose of atenolol #3 the patient might need to have permanent pacemaker #4 follow-up with the patient #5 continue oral anticoagulation
--- NOTE | 2021-04-04 13:34 | P.PN ---
Subjective Progress Note Date: 04/04/21 CHIEF COMPLAINT: Abdominal pain HISTORY OF PRESENT ILLNESS: Patient is status post laparoscopic cholecystectomy postop day #3. Patient required transfer to the select floor due to A. fib with RVR. She's been seen by cardiology. Patient has been having cardiac causes. Cardiology is evaluating patient for possible pacemaker placement. She reports her pain is controlled. Denies any nausea or vomiting. She reports having bowel movements. She is tolerating diet. Afebrile. No new labs PHYSICAL EXAM: VITAL SIGNS: Reviewed. GENERAL: Well-developed in no acute distress. HEENT: No sclera icterus. Extraocular movements grossly intact. Moist buccal mucosa. Head is atraumatic, normocephalic. ABDOMEN: Soft. Nondistended. Incision sites clean dry and intact NEUROLOGIC: Alert and oriented. Cranial nerves II through XII grossly intact. ASSESSMENT: 1. Cholelithiasis status post laparoscopic cholecystectomy PLAN: -Continue cardiac workup -Continue regular diet -continue pain medication as needed -Encouraged patient to ambulate -Encouraged patient to use incentive spirometer -Continue to work with PT OT -DVT prophylaxis Lovenox and GI prophylaxis Pepcid Physician [employer] note has been reviewed by physician. Signing provider agrees with the documented findings, assessment, and plan of care. Objective - Vital Signs Vital signs: Vital Signs Temp 97.6 F 04/04/21 12:05 Pulse 67 04/04/21 12:05 Resp 16 04/04/21 12:05 BP 139/80 04/04/21 12:05 Pulse Ox 95 04/04/21 12:05 Intake & Output 04/03/21 04/04/21 04/04/21 18:59 06:59 18:59 Intake Total 712.000 180 Output Total 1375 100 850 Balance -663.000 -100 -670 Weight 82.5 kg Intake: Intake, IV Titration 112.000 Amount Diltiazem 125 mg In 112.000 Sodium Chloride 0.9% 100 ml @ 10 MG/HR 10 mls/hr IV .[id number] [facility] Rx#: [id number] Oral 600 180 Output: Urine 1375 100 850 Other: Voiding Method External Catheter External Catheter # Bowel Movements 0 - Labs CBC & Chem 7: 04/03/21 07:23 04/03/21 07:23
--- NOTE | 2021-04-04 15:40 | P.PN ---
Progress Note - Text Progress Note Date: 04/04/21 - Chief Complaint Cholecystectomy History of presenting complaint This is a pleasant 80-year-old patient, Dr. Walter, with a known history of CVA with left-sided weakness, dementia, hypertension, flutter fibrillation, colonic diverticulosis, hyperlipidemia, COPD, obstructive sleep apnea and history of breast cancer status post chemo and radiation, depression and previous history of smoking who is currently living at [facility]. Patient was recently discharged from the hospital March pain swelling the diagnosis of acute colitis. That improved. Also found to have a hydropic gallbladder. Patient now presented with surgical intervention for the same. Has undergone laparoscopic cholecystectomy by Dr. Robert. Postprocedure laying in bed. Rather sedated and lethargic. Though arousable. Appears comfortable. Not able to really give much of a history currently. On nasal cannula. April 022020: Sitting up in a chair. Minimal abdominal pain. Tolerating a diet. Heart rate did go down to the 40s. Cardiology consulted. Had a run of A. fib this morning. Back in sinus rhythm 04/03/2021: Patient is moved to the cardiology floor yesterday. Initially bradycardic. Admitted back in sinus rhythm. This morning went into A. fib with rapid ventricular rate. Verapamil had been held. Tenormin resumed by cardiology. We'll also put back on a Cardizem drip. Patient a bit tired. No chest pain 04/04/2021: Sitting up in a chair. Comfortable. No chest pain. Patient is been in and out of A. fib. Again rate uncontrolled. Currently on Tenormin 50 mg daily, IV Cardizem drip. No palpitations. No shortness of breath. Oral int giselle about 50%. Review of systems: Was done for constitutional, cardiovascular, GI, pulmonary. relevant finding as above Active Medications Hydrocodone Bitart/Acetaminophen (Hydrocodone/Apap 5-325mg 1 Each Tab) 1 each PO Q6HR PRN PRN Reason: Pain Amlodipine Besylate (Amlodipine 5 Mg Tab) 5 mg PO HS [facility] Last Admin: 04/03/21 20:50 Dose: 5 mg Documented by: Apixaban (Apixaban 2.5 Mg Tablet) 2.5 mg PO BID [facility]; Protocol Last Admin: 04/04/21 08:15 Dose: 2.5 mg Documented by: Atenolol (Atenolol 50 Mg Tab) 50 mg PO DAILY [facility] Last Admin: 04/04/21 08:14 Dose: 50 mg Documented by: Atorvastatin Calcium (Atorvastatin 20 Mg Tab) 20 mg PO HS [facility] Last Admin: 04/03/21 20:50 Dose: 20 mg Documented by: Bupropion HCl (Bupropion Sr 150 Mg Tablet.Er) 150 mg PO DAILY [facility] Last Admin: 04/04/21 08:14 Dose: 150 mg Documented by: Cholecalciferol (Cholecalciferol 25 Mcg (1000 Iu) Tablet) 50 mcg PO DAILY [facility] Last Admin: 04/04/21 08:20 Dose: 50 mcg Documented by: Enoxaparin Sodium (Enoxaparin 40 Mg/0.4 Ml Syringe) 40 mg SQ HS [facility] Stop: 05/01/21 21:01 Last Admin: 04/03/21 20:50 Dose: 40 mg Documented by: Famotidine (Famotidine 20 Mg Tab) 20 mg PO DAILY [facility] Last Admin: 04/04/21 08:14 Dose: 20 mg Documented by: Fluticasone Propionate (Fluticasone 44 Mcg Inhaler) 1 puff INHALATION RT-BID [facility] Last Admin: 04/04/21 08:08 Dose: 1 puff Documented by: Lactated Ringer's (Lactated Ringers) 1,000 mls @ 50 mls/hr IV .Q20H [facility] Last Admin: 04/03/21 15:35 Dose: 75 mls/hr Documented by: Diltiazem HCl 125 mg/ Sodium (Chloride) 125 mls @ 10 mls/hr IV .[id number] [facility] Last Admin: 04/03/21 16:36 Dose: 10 mg/hr, 10 mls/hr Documented by: Melatonin (Melatonin 3 Mg Tablet) 3 mg PO HS [facility] Last Admin: 04/03/21 20:50 Dose: 3 mg Documented by: Multivitamins (Multivitamins, Thera 1 Each Tab) 1 each PO DAILY [facility] Last Admin: 04/04/21 08:14 Dose: 1 each Documented by: Naloxone HCl (Naloxone 0.4 Mg/Ml 1 Ml Vial) 0.2 mg IV Q2M PRN PRN Reason: Opioid Reversal Stop: 05/01/21 08:56 Ondansetron HCl (Ondansetron 4 Mg/2 Ml Vial) 4 mg IVP Q6HR PRN PRN Reason: Nausea And Vomiting Stop: 05/01/21 08:56 Pyridoxine HCl (Pyridoxine 50 Mg Tab) 50 mg PO DAILY [facility] Last Admin: 04/04/21 08:14 Dose: 50 mg Documented by: Past medical history to include: CVA with left-sided weakness, dementia, hypertension, flutter fibrillation, hyperlipidemia, COPD, obstructive sleep apnea, breast cancer with history of chemo and radiation, depression, acute colitis, DJD urinary incontinence, needs gait assistance, colonic diverticulosis Social history: Smoked a pack a day from age 17. No alcohol. Currently at [facility]. Family history: 2 sisters had breast cancer. One sister and ovarian cancer Physical examination: VITAL SIGNS: 97.6, 110, 16, 139/80, 95% on 2 L GENERAL: Sitting up in a chair, comfortable, awake EYES: Pupils equal. Conjunctiva normal. HEENT: External appearance of nose and ears normal, oral cavity grossly normal. NECK: JVD unable to assess; masses not palpable. HEART: Irregular heart sounds; no edema. LUNGS: Respiratory rate normal; decreased breath sounds. ABDOMEN: Soft, minimal tender, liver spleen not palpable, no masses palpable. PSYCH: Awake answer simple questions INVESTIGATIONS, reviewed in the clinical context: April 03: WBC 9.4 hemoglobin 11.3 platelets 368 potassium 3.9 creatinine 0.98 Telemetry strip was reviewed by me: Erin cooper. Uncontrolled WBC 15.6 hemoglobin 11.8 potassium 4.52 and 19 creatinine 1.13 TSH 2.0 Assessment and plan: -Paroxysmal atrial flutter/fibrillation: Uncontrolled with rapid ventricular rate. Alternating with bradycardia.: Uncontrolled. Atenolol 50 mg. Verapamil SR 180 mg-discontinued. Eliquis. IV Cardizem drip -Hydropic gallbladder followed by laparoscopic cholecystectomy By Dr. Robert. -Episode of bradycardia. Tachybradycardia syndrome. Verapamil discontinued. Patient may need pacemaker. - left hemiparesis from prior CVA -Essential hypertension Atenolol -Hyperlipidemia Lipitor -Obstructive sleep apnea- uses BiPAP -COPD in a current smoker Follow clinically -Chronic gait dysfunction Uses walker -Depression On Wellbutrin XL -Chronic insomnia from medical conditions Melatonin. -Moderate cognitive impairment, likely from late onset Alzheimer's dementia IV Cardizem. Oral atenolol. Other medications to continue. Discussed with the patient.
[2021-04-04] MEDS: LACTATED RINGERS 1,000 ML IV SCH (18:05)
[2021-04-04] MEDS: DILTIAZEM 125 MG in SODIUM CHLORIDE 0.9% 100 ML IV SCH (18:05)
[2021-04-04] MEDS: MELATONIN 3 MG TABLET PO SCH (19:47)
[2021-04-04] MEDS: ENOXAPARIN 40 MG/0.4 ML SYRINGE SQ SCH (19:47)
[2021-04-04] MEDS: ATORVASTATIN 20 MG TAB PO SCH (19:47)
[2021-04-04] MEDS: amLODIPine 5 MG TAB PO SCH (19:47)
[2021-04-04] MEDS: HYDROcodone/APAP 5-325MG 1 EACH TAB PO PRN (19:52)
[2021-04-05] MEDS: DILTIAZEM 125 MG in SODIUM CHLORIDE 0.9% 100 ML IV SCH (05:02)
[2021-04-05] MEDS: LACTATED RINGERS 1,000 ML IV SCH (05:02)
[2021-04-05] MEDS: FLUTICASONE 44 MCG INHALER INHALATION SCH ×2 (08:38→19:38)
[2021-04-05] MEDS: CHOLECALCIFEROL 25 MCG (1000 IU) TABLET PO SCH (09:39)
[2021-04-05] MEDS: buPROPion SR 150 MG TABLET.ER PO SCH (09:39)
[2021-04-05] MEDS: APIXABAN 2.5 MG TABLET PO SCH ×2 (09:39→20:18)
[2021-04-05] MEDS: MULTIVITAMINS, THERA 1 EACH TAB PO SCH (09:39)
[2021-04-05] MEDS: atenoloL 50 MG TAB PO SCH (09:39)
[2021-04-05] MEDS: PYRIDOXINE 50 MG TAB PO SCH (09:39)
[2021-04-05] MEDS: FAMOTIDINE 20 MG TAB PO SCH (09:39)
--- NOTE | 2021-04-05 10:34 | P.PN ---
Subjective Progress Note Date: 04/05/21 Principal diagnosis: Paroxysmal atrial fibrillation The patient was seen this morning. She is a 80-year-old female patient who was admitted to the hospital and underwent laparoscopic cholecystectomy. We consulted to see the patient for the management of atrial fibrillation. She is known to have paroxysmal atrial fibrillation and she is on oral anticoagulation. The patient was seen this morning. She continues to be on atenolol at 50 mg by mouth daily and continues to be on oral anticoagulation. She continues to be in atrial fibrillation with reasonable heart rate around 100 and sometimes 110 beats per minutes. She remains asymptomatic from a cardiovascular standpoint of view. I would advise monitor the patient's rhythm for additional 24 hours and assess the need for permanent pacemaker. Objective - Vital Signs Vital signs: Vital Signs Temp 98.1 F 04/05/21 08:00 Pulse 111 H 04/05/21 08:00 Resp 18 04/05/21 08:00 BP 146/77 04/05/21 08:00 Pulse Ox 97 04/05/21 08:39 Intake & Output 04/04/21 04/05/21 04/05/21 18:59 06:59 18:59 Intake Total 420 Output Total 1300 700 Balance -880 -700 Weight 81.5 kg Intake: Oral 420 Output: Urine 1300 700 Other: Voiding Method External Catheter External Catheter External Catheter # Voids 1 # Bowel Movements 0 - Constitutional General appearance: Present: no acute distress - Respiratory Respiratory: bilateral: diminished - Cardiovascular Rhythm: irregularly irregular - Labs CBC & Chem 7: 04/03/21 07:23 04/03/21 07:23 Assessment and Plan Assessment: Assessment #1 coronary artery disease and status post laparoscopic cholecystectomy #2 paroxysmal atrial fibrillation #3 evidence of tachybradycardia syndrome #4 multiple comorbid conditions Plan #1 continue the current medical regimen #2 continue the current dose of atenolol #3 the patient might need to have permanent pacemaker #4 monitor the patient for additional 24-hour
[2021-04-05 12:45] LABS: Basophils % (A) 0 %; Eosinophils # (A) 0.7 k/uL (0-0.7); Eosinophils % (A) 7 %; HCT 39.6 % (34.0-46.0); HGB 13.6 gm/dL (11.4-16.0); Lymphocytes # (A) 2.4 k/uL (1.0-4.8); Lymphocytes % (A) 24 %; MCH 30.7 pg (25.0-35.0); MCHC 34.3 g/dL (31.0-37.0); MCV 89.7 fL (80.0-100.0); Mean Platelet Volume 7.3; Monocytes # (A) 0.7 k/uL (0-1.0); Monocytes % (A) 8 %; Neutrophils # (A) 5.8 k/uL (1.3-7.7); Neutrophils % (A) 59 %; Platelet Count 472 k/uL (150-450); Poikilocytosis Slight; RBC 4.41 m/uL (3.80-5.40); RDW 14.5 % (11.5-15.5); WBC 9.9 k/uL (3.8-10.6)
--- NOTE | 2021-04-05 12:51 | P.PN ---
Subjective Progress Note Date: 04/05/21 CHIEF COMPLAINT: Acute cholecystitis HISTORY OF PRESENT ILLNESS: The patient is a 80-year-old female status post cholecystectomy for acute cholecystitis. Additionally, patient went to atrial fibrillation with rapid ventricular response. She is tolerating diet. She denies any new complaints. ROS: No reports of nausea and vomiting. No fevers or chills. No new chest pain. No productive sputum PHYSICAL EXAM: VITAL SIGNS: Reviewed CONSTITUTIONAL: Well developed and in no acute distress. EYES: Conjuctivae without sclera icterus. Extraocular movements grossly intact. HEAD, EARS, NOSE, THROAT: Moist buccal mucosa. Head is atraumatic, normocephalic. Hears conversational speech. No nasal drainage. NECK: No gross thyroidomegaly. No jugular venous distention. RESPIRATORY: Non-labored respirations and equal bilateral excursions. CARDIOVASCULAR: 2+ radial pulses. ABDOMEN: No peritonitis. MUSCULOSKELETAL: No gross deformity of the lower extremities noted. No clubbing. No cyanosis. SKIN: Good skin turgor. Well perfused. NEUROLOGIC: Cranial nerves II through XII grossly intact. No focal or lateralizing signs. PSYCH: Appropriate affect. Alert and oriented to person, place and time. CLINICAL LABS: White blood cell count normal at 9.4, 04/03/2021 ASSESSMENT: 1. Acute cholecystitis 2. Atrial fibrillation and a rapid ventricular response PLAN: 1. Monitor hemoglobin while on anticoagulant. 2. Recommend CBC and recent comprehensive metabolic panel Objective - Vital Signs Vital signs: Vital Signs Temp 98.1 F 04/05/21 08:00 Pulse 111 H 04/05/21 08:00 Resp 18 04/05/21 08:00 BP 146/77 04/05/21 08:00 Pulse Ox 97 04/05/21 08:39 Intake & Output 04/04/21 04/05/21 04/05/21 18:59 06:59 18:59 Intake Total 420 Output Total 1300 700 Balance -880 -700 Weight 81.5 kg Intake: Oral 420 Output: Urine 1300 700 Other: Voiding Method External Catheter External Catheter External Catheter # Voids 1 # Bowel Movements 0 - Labs CBC & Chem 7: 04/05/21 12:15 04/03/21 07:23 Assessment and Plan (1) Cholelithiases Current Visit: Yes Status: Acute Code(s): K80.20 - CALCULUS OF GALLBLADDER W/O CHOLECYSTITIS W/O OBSTRUCTION SNOMED Code(s): 921779648 (2) Atrial fibrillation with rapid ventricular response Current Visit: Yes Status: Acute Code(s): I48.91 - UNSPECIFIED ATRIAL FIBRILLATION SNOMED Code(s): 779397012876284
[2021-04-05 12:59] LABS: Albumin 3.6 g/dL (3.5-5.0); Potassium 4.3 mmol/L (3.5-5.1); Total Bilirubin 0.4 mg/dL (0.2-1.3); Total Protein 6.4 g/dL (6.3-8.2)
[2021-04-05] MEDS: HYDROcodone/APAP 5-325MG 1 EACH TAB PO PRN (20:17)
[2021-04-05] MEDS: amLODIPine 5 MG TAB PO SCH (20:17)
[2021-04-05] MEDS: ENOXAPARIN 40 MG/0.4 ML SYRINGE SQ SCH (20:17)
[2021-04-05] MEDS: MELATONIN 3 MG TABLET PO SCH (20:18)
[2021-04-05] MEDS: ATORVASTATIN 20 MG TAB PO SCH (20:18)
--- NOTE | 2021-04-05 22:55 | P.PN ---
Subjective Progress Note Date: 04/05/21 Principal diagnosis: Paroxysmal atrial fibrillation S/p laparoscopic cholecystectomy. This is a pleasant 80-year-old patient, Dr. Walter, with a known history of CVA with left-sided weakness, dementia, hypertension, flutter fibrillation, colonic diverticulosis, hyperlipidemia, COPD, obstructive sleep apnea and history of breast cancer status post chemo and radiation, depression and previous history of smoking who is currently living at [facility]. Patient was recently discharged from the hospital March pain swelling the diagnosis of acute colitis. That improved. Also found to have a hydropic gallbladder. Patient now presented with surgical intervention for the same. Has undergone laparoscopic cholecystectomy by Dr. Robert. Postprocedure laying in bed. Rather sedated and lethargic. Though arousable. Appears comfortable. Not able to really give much of a history currently. On nasal cannula. April 022020: Sitting up in a chair. Minimal abdominal pain. Tolerating a diet. Heart rate did go down to the 40s. Cardiology consulted. Had a run of A. fib this morning. Back in sinus rhythm 04/03/2021: Patient is moved to the cardiology floor yesterday. Initially bradycardic. Admitted back in sinus rhythm. This morning went into A. fib with rapid ventricular rate. Verapamil had been held. Tenormin resumed by cardiology. We'll also put back on a Cardizem drip. Patient a bit tired. No chest pain 04/04/2021: Sitting up in a chair. Comfortable. No chest pain. Patient is been in and out of A. fib. Again rate uncontrolled. Currently on Tenormin 50 mg daily, IV Cardizem drip. No palpitations. No shortness of breath. Oral intake about 50%. 04/05/2021 Patient is status post cholecystectomy. Continue to atrial fibrillation with rapid started. Patient is currently sitting in the chair comfortably. Awake alert oriented x3. Continues to be in atrial fibrillation. Atenolol 50 mg daily and is also on anticoagulation. Cardiology is following. Review of systems: Was done for constitutional, cardiovascular, GI, pulmonary. relevant finding as above Objective - Vital Signs Vital signs: Vital Signs Temp 98.6 F 04/05/21 20:00 Pulse 62 04/05/21 20:00 Resp 18 04/05/21 20:00 BP 128/81 04/05/21 20:00 Pulse Ox 95 04/05/21 20:00 Intake & Output 04/05/21 04/05/21 04/06/21 06:59 18:59 06:59 Intake Total 598 240 Output Total 700 300 Balance -700 298 240 Weight 81.5 kg Intake: Oral 598 240 Output: Urine 700 300 Other: Voiding Method External Catheter External Catheter External Catheter # Voids 1 - Exam Physical examination: VITAL SIGNS: 97.6, 110, 16, 139/80, 95% on 2 L GENERAL: Sitting up in a chair, comfortable, awake EYES: Pupils equal. Conjunctiva normal. HEENT: External appearance of nose and ears normal, oral cavity grossly normal. NECK: JVD unable to assess; masses not palpable. HEART: Irregular heart sounds; no edema. LUNGS: Respiratory rate normal; decreased breath sounds. ABDOMEN: Soft, minimal tender, liver spleen not palpable, no masses palpable. PSYCH: Awake answer simple questions INVESTIGATIONS, reviewed in the clinical context: April 03: WBC 9.4 hemoglobin 11.3 platelets 368 potassium 3.9 creatinine 0.98 Telemetry strip was reviewed by me: Erin cooper. Uncontrolled WBC 15.6 hemoglobin 11.8 potassium 4.52 and 19 creatinine 1.13 TSH 2.0 - Labs CBC & Chem 7: 04/05/21 12:15 04/05/21 12:15 Labs: Abnormal Lab Results - Last 24 Hours (Table) 04/05/21 04/05/21 Range/Units 12:15 12:15 Plt Count 472 H (150-450) k/uL Carbon Dioxide 31 H (22-30) mmol/L Glucose 103 H (74-99) mg/dL AST 53 H (14-36) U/L ALT 37 H (4-34) U/L Assessment and Plan Assessment: -Paroxysmal atrial flutter/fibrillation: Uncontrolled with rapid ventricular rate. Alternating with bradycardia.: Uncontrolled. Atenolol 50 mg. Verapamil SR 180 mg-discontinued. Eliquis. IV Cardizem drip off Currently monitoring. Cardiology is evaluating for possible pacemaker placeme nt. -Hydropic gallbladder followed by laparoscopic cholecystectomy By Dr. Robert. -Episode of bradycardia. Tachybradycardia syndrome. Verapamil discontinued. Patient may need pacemaker. - left hemiparesis from prior CVA -Essential hypertension Atenolol -Hyperlipidemia Lipitor -Obstructive sleep apnea- uses BiPAP -COPD in a current smoker Follow clinically -Chronic gait dysfunction Uses walker -Depression On Wellbutrin XL -Chronic insomnia from medical conditions Melatonin. -Moderate cognitive impairment, likely from late onset Alzheimer's dementia. Time with Patient: Greater than 30
[2021-04-06] MEDS: LACTATED RINGERS 1,000 ML IV SCH ×2 (04:59→23:02)
[2021-04-06] MEDS: FLUTICASONE 44 MCG INHALER INHALATION SCH ×2 (07:59→20:42)
--- NOTE | 2021-04-06 08:43 | P.PN ---
Subjective Progress Note Date: 04/06/21 Principal diagnosis: Paroxysmal atrial fibrillation The patient was seen this morning. She is a 80-year-old female patient who was admitted to the hospital and underwent laparoscopic cholecystectomy. We consulted to see the patient for the management of atrial fibrillation. She is known to have paroxysmal atrial fibrillation and she is on oral anticoagulation. The patient was seen this morning. She seems to be tolerating the current dose of atenolol which is 50 mg by mouth daily very well and she is also on oral anticoagulation. No need for permanent pacemaker so far. No significant episodes of sinus pause or sinus arrest seen. Objective - Vital Signs Vital signs: Vital Signs Temp 98.3 F 04/06/21 04:00 Pulse 60 04/06/21 04:00 Resp 18 04/06/21 04:00 BP 132/84 04/06/21 04:00 Pulse Ox 96 04/06/21 04:00 Intake & Output 04/05/21 04/06/21 04/06/21 18:59 06:59 18:59 Intake Total 598 960 Output Total 300 475 Balance 298 485 Weight 77.8 kg Intake: Oral 598 960 Output: Urine 300 475 Other: Voiding Method External Catheter External Catheter - Constitutional General appearance: Present: no acute distress - Respiratory Respiratory: bilateral: diminished - Cardiovascular Rhythm: irregularly irregular Heart sounds: normal: S1, S2 - Labs CBC & Chem 7: 04/05/21 12:15 04/05/21 12:15 Labs: Abnormal Lab Results - Last 24 Hours (Table) 04/05/21 04/05/21 Range/Units 12:15 12:15 Plt Count 472 H (150-450) k/uL Carbon Dioxide 31 H (22-30) mmol/L Glucose 103 H (74-99) mg/dL AST 53 H (14-36) U/L ALT 37 H (4-34) U/L Assessment and Plan Assessment: Assessment #1 coronary artery disease and status post laparoscopic cholecystectomy #2 paroxysmal atrial fibrillation #3 evidence of tachybradycardia syndrome #4 multiple comorbid conditions Plan #1 continue the current medical regimen #2 continue the current dose of atenolol #3 the patient might need to have permanent pacemaker #4 the patient can be discharged in the next 12-24 hours
[2021-04-06] MEDS: MULTIVITAMINS, THERA 1 EACH TAB PO SCH (08:53)
[2021-04-06] MEDS: PYRIDOXINE 50 MG TAB PO SCH (08:53)
[2021-04-06] MEDS: CHOLECALCIFEROL 25 MCG (1000 IU) TABLET PO SCH (08:53)
[2021-04-06] MEDS: atenoloL 50 MG TAB PO SCH (08:53)
[2021-04-06] MEDS: buPROPion SR 150 MG TABLET.ER PO SCH (08:53)
[2021-04-06] MEDS: FAMOTIDINE 20 MG TAB PO SCH (08:53)
[2021-04-06] MEDS: APIXABAN 2.5 MG TABLET PO SCH ×2 (08:53→20:21)
--- NOTE | 2021-04-06 13:06 | P.PN ---
Subjective Progress Note Date: 04/06/21 CHIEF COMPLAINT: Acute cholecystitis HISTORY OF PRESENT ILLNESS: The patient is a 80-year-old female status post cholecystectomy for acute cholecystitis. She was in atrial fibrillation with rapid ventricular response now improved. She is on regular diet. "I feel great." ROS: No reports of nausea and vomiting. No fevers or chills. No new chest pain. No productive sputum PHYSICAL EXAM: VITAL SIGNS: Reviewed CONSTITUTIONAL: Well developed and in no acute distress. EYES: Conjuctivae without sclera icterus. Extraocular movements grossly intact. HEAD, EARS, NOSE, THROAT: Moist buccal mucosa. Head is atraumatic, normocephalic. Hears conversational speech. No nasal drainage. RESPIRATORY: Non-labored respirations and equal bilateral excursions. CARDIOVASCULAR: 2+ radial pulses. ABDOMEN: No peritonitis. MUSCULOSKELETAL: No gross deformity of the lower extremities noted. No clu bbing. No cyanosis. SKIN: Good skin turgor. Well perfused. NEUROLOGIC: Cranial nerves II through XII grossly intact. No focal or lateralizing signs. PSYCH: Appropriate affect. Alert and oriented to person.. CLINICAL LABS: Reviewed. White blood cell count normal. LFTs mildy elevated. Hgb has improved to over 13.0 ASSESSMENT: 1. Acute cholecystitis 2. Atrial fibrillation and a rapid ventricular response PLAN: 1. Continue anticaogulation as Hgb has improved. 2. Stable for discharge from a surgical standpoint when medically stable Objective - Vital Signs Vital signs: Vital Signs Temp 97.5 F L 04/06/21 08:00 Pulse 59 L 04/06/21 12:00 Resp 16 04/06/21 12:00 BP 132/70 04/06/21 12:00 Pulse Ox 95 04/06/21 12:00 Intake & Output 04/05/21 04/06/21 04/06/21 18:59 06:59 18:59 Intake Total 598 960 118 Output Total 300 475 Balance 298 485 118 Weight 77.8 kg Intake: Oral 598 960 118 Output: Urine 300 475 Other: Voiding Method External Catheter External Catheter - Labs CBC & Chem 7: 04/05/21 12:15 04/05/21 12:15 Assessment and Plan (1) Cholelithiases Current Visit: Yes Status: Acute Code(s): K80.20 - CALCULUS OF GALLBLADDER W/O CHOLECYSTITIS W/O OBSTRUCTION SNOMED Code(s): 840364933 (2) Atrial fibrillation with rapid ventricular response Current Visit: Yes Status: Acute Code(s): I48.91 - UNSPECIFIED ATRIAL FIBRILLATION SNOMED Code(s): 056492405209493
[2021-04-06] MEDS: ENOXAPARIN 40 MG/0.4 ML SYRINGE SQ SCH (20:21)
[2021-04-06] MEDS: HYDROcodone/APAP 5-325MG 1 EACH TAB PO PRN (20:21)
[2021-04-06] MEDS: amLODIPine 5 MG TAB PO SCH (20:21)
[2021-04-06] MEDS: ATORVASTATIN 20 MG TAB PO SCH (20:21)
[2021-04-06] MEDS: MELATONIN 3 MG TABLET PO SCH (22:15)
--- NOTE | 2021-04-06 23:41 | P.PN ---
Subjective Progress Note Date: 04/06/21 Principal diagnosis: Paroxysmal atrial fibrillation S/p laparoscopic cholecystectomy. This is a pleasant 80-year-old patient, Dr. Walter, with a known history of CVA with left-sided weakness, dementia, hypertension, flutter fibrillation, colonic diverticulosis, hyperlipidemia, COPD, obstructive sleep apnea and history of breast cancer status post chemo and radiation, depression and previous history of smoking who is currently living at [facility]. Patient was recently discharged from the hospital March swelling the diagnosis of acute colitis. That improved. Also found to have a hydropic gallbladder. Patient now presented with surgical intervention for the same. Has undergone laparoscopic cholecystectomy by Dr. Robert. Postprocedure laying in bed. Rather sedated and lethargic. Though arousable. Appears comfortable. Not able to really give much of a history currently. On nasal cannula. April [id number]: Sitting up in a chair. Minimal abdominal pain. Tolerating a diet. Heart rate did go down to the 40s. Cardiology consulted. Had a run of A. fib this morning. Back in sinus rhythm 04/03/2021: Patient is moved to the cardiology floor yesterday. Initially bradycardic. Admitted back in sinus rhythm. This morning went into A. fib with rapid ventricular rate. Verapamil had been held. Tenormin resumed by cardiology. We'll also put back on a Cardizem drip. Patient a bit tired. No chest pain 04/04/2021: Sitting up in a chair. Comfortable. No chest pain. Patient is been in and out of A. fib. Again rate uncontrolled. Currently on Tenormin 50 mg daily, IV Cardizem drip. No palpitations. No shortness of breath. Oral intake about 50%. 04/05/2021 Patient is status post cholecystectomy. Continue to atrial fibrillation with rapid started. Patient is currently sitting in the chair comfortably. Awake alert oriented x3. Continues to be in atrial fibrillation. Atenolol 50 mg daily and is also on anticoagulation. Cardiology is following. 04/06/2021 Patient is currently sitting in the chair comfortably. Denies any complaints of chest pain or shortness of breath. No cough or sputum production. Patient tolerating oral diet. Laboratory showed WBC 9.9 hemoglobin 13.6 and platelets 472 Sodium 139 potassium 4.3 chloride 101 bicarb is 31 BUN 17 and creatinine 1.04, AST 53 ALT 37 alk phos 112 Patient is being continued anticoagulation in the form of Eliquis due to new onset atrial fibrillation. General surgery and cardiology is on board. Review of systems: Was done for constitutional, cardiovascular, GI, pulmonary. relevant finding as above Objective - Vital Signs Vital signs: Vital Signs Temp 97.5 F L 04/06/21 08:00 Pulse 61 04/06/21 15:31 Resp 18 04/06/21 15:31 BP 143/78 04/06/21 15:31 Pulse Ox 94 L 04/06/21 15:31 Intake & Output 04/05/21 04/06/21 04/06/21 18:59 06:59 18:59 Intake Total 598 960 238 Output Total 300 475 Balance 298 485 238 Weight 77.8 kg Intake: Oral 598 960 238 Output: Urine 300 475 Other: Voiding Method External Catheter External Catheter - Exam Physical examination: VITAL SIGNS: 97.6, 110, 16, 139/80, 95% on 2 L GENERAL: Sitting up in a chair, comfortable, awake EYES: Pupils equal. Conjunctiva normal. HEENT: External appearance of nose and ears normal, oral cavity grossly normal. NECK: JVD unable to assess; masses not palpable. HEART: Irregular heart sounds; no edema. LUNGS: Respiratory rate normal; decreased breath sounds. ABDOMEN: Soft, minimal tender, liver spleen not palpable, no masses palpable. PSYCH: Awake answer simple questions INVESTIGATIONS, reviewed in the clinical context: April 03: WBC 9.4 hemoglobin 11.3 platelets 368 potassium 3.9 creatinine 0.98 Telemetry strip was reviewed by me: Erin cooper. Uncontrolled WBC 15.6 hemoglobin 11.8 potassium 4.52 and 19 creatinine 1.13 TSH 2.0 - Labs CBC & Chem 7: 04/05/21 12:15 04/05/21 12:15 Assessment and Plan Assessment: -Paroxysmal atrial flutter/fibrillation: Uncontrolled with rapid ventricular rate. Alternating with bradycardia.: Uncontrolled. Atenolol 50 mg. Verapamil SR 180 mg-discontinued. Eliquis. IV Cardizem drip off Currently monitoring. Cardiology is evaluating for possible pacemaker placement. -Hydropic gallbladder followed by laparoscopic cholecystectomy By Dr. Robert. -Episode of bradycardia. Tachybradycardia syndrome. Verapamil discontinued. Patient may need pacemaker. - left hemiparesis from prior CVA -Essential hypertension Atenolol -Hyperlipidemia Lipitor -Obstructive sleep apnea- uses BiPAP -COPD in a current smoker Follow clinically -Chronic gait dysfunction Uses walker -Depression On Wellbutrin XL -Chronic insomnia from medical conditions Melatonin. -Moderate cognitive impairment, likely from late onset Alzheimer's dementia. Time with Patient: Greater than 30
[2021-04-07] MEDS: atenoloL 50 MG TAB PO SCH (08:31)
[2021-04-07] MEDS: buPROPion SR 150 MG TABLET.ER PO SCH (08:31)
[2021-04-07] MEDS: APIXABAN 2.5 MG TABLET PO SCH ×2 (08:31→20:29)
[2021-04-07] MEDS: FAMOTIDINE 20 MG TAB PO SCH (08:31)
[2021-04-07] MEDS: MULTIVITAMINS, THERA 1 EACH TAB PO SCH (08:31)
[2021-04-07] MEDS: PYRIDOXINE 50 MG TAB PO SCH (08:31)
[2021-04-07] MEDS: CHOLECALCIFEROL 25 MCG (1000 IU) TABLET PO SCH (08:31)
[2021-04-07] MEDS: LACTATED RINGERS 1,000 ML IV SCH (08:32)
[2021-04-07] MEDS: FLUTICASONE 44 MCG INHALER INHALATION SCH ×2 (08:51→20:43)
--- NOTE | 2021-04-07 11:04 | P.PN ---
Subjective Progress Note Date: 04/07/21 Principal diagnosis: Paroxysmal atrial fibrillation The patient was seen this morning. She continues to be going in and out of atrial fibrillation but every time she goes atrial fibrillation her heart rate around 100 bpm that sometimes 110 bpm. She is currently on atenolol at 50 mg by mouth daily and also she is on oral anticoagulation. From the cardiac standpoint of view, the patient can be transferred out of the unit or transferred to non cardiac floor. Objective - Vital Signs Vital signs: Vital Signs Temp 97.6 F 04/07/21 08:00 Pulse 70 04/07/21 08:00 Resp 18 04/07/21 08:00 BP 137/78 04/07/21 08:00 Pulse Ox 94 L 04/07/21 08:00 Intake & Output 04/06/21 04/07/21 04/07/21 18:59 06:59 18:59 Intake Total 478 Output Total 500 Balance -22 Weight 81.1 kg Intake: Oral 478 Output: Urine 500 Other: Voiding Method Bedside Commode Bedside Commode Diaper Diaper # Voids 1 1 # Bowel Movements 1 - Constitutional General appearance: Present: no acute distress - Respiratory Respiratory: bilateral: diminished - Cardiovascular Rhythm: irregularly irregular Heart sounds: normal: S1, S2 - Labs CBC & Chem 7: 04/05/21 12:15 04/05/21 12:15 Assessment and Plan Assessment: Assessment #1 coronary artery disease and status post laparoscopic cholecystectomy #2 paroxysmal atrial fibrillation #3 evidence of tachybradycardia syndrome #4 multiple comorbid conditions Plan #1 continue the current medical regimen #2 continue the current dose of atenolol
--- NOTE | 2021-04-07 19:12 | P.PN ---
Subjective Progress Note Date: 04/07/21 CHIEF COMPLAINT: Acute cholecystitis HISTORY OF PRESENT ILLNESS: The patient is a 80-year-old female status post cholecystectomy for acute cholecystitis. She was in atrial fibrillation with rapid ventricular response now improved. She denies any abdominal pain. She is tolerating diet. She is eager to go home. ROS: No reports of nausea and vomiting. No fevers or chills. No new chest pain. No productive sputum PHYSICAL EXAM: VITAL SIGNS: Reviewed CONSTITUTIONAL: Well developed and in no acute distress. EYES: Conjuctivae without sclera icterus. Extraocular movements grossly intact. HEAD, EARS, NOSE, THROAT: Moist buccal mucosa. Head is atraumatic, normocephalic. Hears conversational speech. No nasal drainage. RESPIRATORY: Non-labored respirations and equal bilateral excursions. CARDIOVASCULAR: 2+ radial pulses. ABDOMEN: No peritonitis. MUSCULOSKELETAL: No gross deformity of the lower extremities noted. No clubbing. No cyanosis. SKIN: Good skin turgor. Well perfused. NEUROLOGIC: Cranial nerves II through XII grossly intact. No focal or lateralizing signs. PSYCH: Appropriate affect. Alert and oriented to person.. CLINICAL LABS: Reviewed. No new labs. ASSESSMENT: 1. Acute cholecystitis 2. Atrial fibrillation and a rapid ventricular response PLAN: 1. She is doing well and stable for discharge when medically stable. Objective - Vital Signs Vital signs: Vital Signs Temp 98.1 F 04/07/21 16:00 Pulse 70 04/07/21 12:00 Resp 18 04/07/21 16:00 BP 169/95 04/07/21 16:00 Pulse Ox 95 04/07/21 16:00 Intake & Output 04/07/21 04/07/21 04/08/21 06:59 18:59 06:59 Intake Total 240 Balance 240 Weight 81.1 kg Intake: Oral 240 Other: Voiding Method Bedside Commode Bedside Commode Diaper Diaper # Voids 1 3 # Bowel Movements 1 - Labs CBC & Chem 7: 04/05/21 12:15 04/05/21 12:15 Assessment and Plan (1) Cholelithiases Current Visit: Yes Status: Acute Code(s): K80.20 - CALCULUS OF GALLBLADDER W/O CHOLECYSTITIS W/O OBSTRUCTION SNOMED Code(s): 777820163 (2) Atrial fibrillation with rapid ventricular response Current Visit: Yes Status: Acute Code(s): I48.91 - UNSPECIFIED ATRIAL FIBRILLATION SNOMED Code(s): 995703156427677
[2021-04-07] MEDS: amLODIPine 5 MG TAB PO SCH (20:30)
[2021-04-07] MEDS: ENOXAPARIN 40 MG/0.4 ML SYRINGE SQ SCH (20:30)
[2021-04-07] MEDS: ATORVASTATIN 20 MG TAB PO SCH (20:30)
[2021-04-07] MEDS: MELATONIN 3 MG TABLET PO SCH (20:58)
--- NOTE | 2021-04-08 00:01 | P.PN ---
Subjective Progress Note Date: 04/07/21 Principal diagnosis: Paroxysmal atrial fibrillation S/p laparoscopic cholecystectomy. This is a pleasant 80-year-old patient, Dr. Walter, with a known history of CVA with left-sided weakness, dementia, hypertension, flutter fibrillation, colonic diverticulosis, hyperlipidemia, COPD, obstructive sleep apnea and history of breast cancer status post chemo and radiation, depression and previous history of smoking who is currently living at [facility]. Patient was recently discharged from the hospital March swelling the diagnosis of acute colitis. That improved. Also found to have a hydropic gallbladder. Patient now presented with surgical intervention for the same. Has undergone laparoscopic cholecystectomy by Dr. Robert. Postprocedure laying in bed. Rather sedated and lethargic. Though arousable. Appears comfortable. Not able to really give much of a history currently. On nasal cannula. April 022020: Sitting up in a chair. Minimal abdominal pain. Tolerating a diet. Heart rate did go down to the 40s. Cardiology consulted. Had a run of A. fib this morning. Back in sinus rhythm 04/03/2021: Patient is moved to the cardiology floor yesterday. Initially bradycardic. Admitted back in sinus rhythm. This morning went into A. fib with rapid ventricular rate. Verapamil had been held. Tenormin resumed by cardiology. We'll also put back on a Cardizem drip. Patient a bit tired. No chest pain 04/04/2021: Sitting up in a chair. Comfortable. No chest pain. Patient is been in and out of A. fib. Again rate uncontrolled. Currently on Tenormin 50 mg daily, IV Cardizem drip. No palpitations. No shortness of breath. Oral intake about 50%. 04/05/2021 Patient is status post cholecystectomy. Continue to atrial fibrillation with rapid started. Patient is currently sitting in the chair comfortably. Awake alert oriented x3. Continues to be in atrial fibrillation. Atenolol 50 mg daily and is also on anticoagulation. Cardiology is following. 04/06/2021 Patient is currently sitting in the chair comfortably. Denies any complaints of chest pain or shortness of breath. No cough or sputum production. Patient tolerating oral diet. Laboratory showed WBC 9.9 hemoglobin 13.6 and platelets 472 Sodium 139 potassium 4.3 chloride 101 bicarb is 31 BUN 17 and creatinine 1.04, AST 53 ALT 37 alk phos 112 Patient is being continued anticoagulation in the form of Eliquis due to new onset atrial fibrillation. General surgery and cardiology is on board. 04/07/2021 Patient is currently lying in the bed comfortably. Awake alert oriented x2-3. No complaints of abdominal pain. Tolerating oral diet. No diarrhea. No dysuria or hematuria. Patient has been current on anticoagulation in the form of Eliquis. Patient is awaiting to be discharged to rehab. Hemodynamically stable. No other acute overnight issues. Review of systems: Was done for constitutional, cardiovascular, GI, pulmonary. relevant finding as above Objective - Vital Signs Vital signs: Vital Signs Temp 98.1 F 04/07/21 19:57 Pulse 66 04/07/21 19:57 Resp 18 04/07/21 20:00 BP 126/79 04/07/21 19:57 Pulse Ox 96 04/07/21 19:57 Intake & Output 04/07/21 04/07/21 04/08/21 06:59 18:59 06:59 Intake Total 240 Balance 240 Weight 81.1 kg Intake: Oral 240 Other: Voiding Method Bedside Commode Bedside Commode Bedside Commode Diaper Diaper Diaper # Voids 1 3 # Bowel Movements 1 - Exam Physical examination: VITAL SIGNS: 97.6, 110, 16, 139/80, 95% on 2 L GENERAL: Sitting up in a chair, comfortable, awake EYES: Pupils equal. Conjunctiva normal. HEENT: External appearance of nose and ears normal, oral cavity grossly normal. NECK: JVD unable to assess; masses not palpable. HEART: Irregular heart sounds; no edema. LUNGS: Respiratory rate normal; decreased breath sounds. ABDOMEN: Soft, minimal tender, liver spleen not palpable, no masses palpable. PSYCH: Awake answer simple questions INVESTIGATIONS, reviewed in the clinical context: April 03: WBC 9.4 hemoglobin 11.3 platelets 368 potassium 3.9 creatinine 0.98 Telemetry strip was reviewed by me: Erin danielle Uncontrolled WBC 15.6 hemoglobin 11.8 potassium 4.52 and 19 creatinine 1.13 TSH 2.0 - Labs CBC & Chem 7: 04/05/21 12:15 04/05/21 12:15 Assessment and Plan Assessment: -Paroxysmal atrial flutter/fibrillation: Uncontrolled with rapid ventricular rate. Atenolol 50 mg. Verapamil SR 180 mg-discontinued. Eliquis. IV Cardizem drip off Currently monitoring. Heart rate is stable and no significant bradycardia. Cardiology recommends to continue dose of beta-elida follow-up as outpatient. -Hydropic gallbladder followed by laparoscopic cholecystectomy By Dr. Robert. -Episode of bradycardia. Tachybradycardia syndrome. Verapamil discontinued. Patient may need pacemaker. - left hemiparesis from prior CVA -Essential hypertension Atenolol -Hyperlipidemia Lipitor -Obstructive sleep apnea- uses BiPAP -COPD in a current smoker Follow clinically -Chronic gait dysfunction Uses walker -Depression On Wellbutrin XL -Chronic insomnia from medical conditions Melatonin. -Moderate cognitive impairment, likely from late onset Alzheimer's dementia. Time with Patient: Greater than 30
[2021-04-08] MEDS: FLUTICASONE 44 MCG INHALER INHALATION SCH ×2 (08:12→20:16)
[2021-04-08] MEDS: APIXABAN 2.5 MG TABLET PO SCH (08:34)
[2021-04-08] MEDS: atenoloL 50 MG TAB PO SCH (08:34)
[2021-04-08] MEDS: PYRIDOXINE 50 MG TAB PO SCH (08:34)
[2021-04-08] MEDS: buPROPion SR 150 MG TABLET.ER PO SCH (08:34)
[2021-04-08] MEDS: CHOLECALCIFEROL 25 MCG (1000 IU) TABLET PO SCH (08:34)
[2021-04-08] MEDS: MULTIVITAMINS, THERA 1 EACH TAB PO SCH (08:34)
[2021-04-08] MEDS: FAMOTIDINE 20 MG TAB PO SCH (08:34)
[2021-04-08 09:12] LABS: Basophils % (A) 0 %; Eosinophils # (A) 0.8 k/uL (0-0.7); Eosinophils % (A) 8 %; HCT 38.1 % (34.0-46.0); HGB 13.3 gm/dL (11.4-16.0); Lymphocytes # (A) 2.4 k/uL (1.0-4.8); Lymphocytes % (A) 23 %; MCHC 34.9 g/dL (31.0-37.0); MCV 88.9 fL (80.0-100.0); Mean Platelet Volume 7.1; Monocytes # (A) 0.7 k/uL (0-1.0); Monocytes % (A) 6 %; Neutrophils # (A) 6.3 k/uL (1.3-7.7); Neutrophils % (A) 60 %; Platelet Count 465 k/uL (150-450); RBC 4.28 m/uL (3.80-5.40); RDW 14.4 % (11.5-15.5); WBC 10.4 k/uL (3.8-10.6)
[2021-04-08 09:22] LABS: Calcium 10.1 mg/dL (8.4-10.2)
--- NOTE | 2021-04-08 10:40 | P.PN ---
Subjective Patient was seen and examined sitting up eating breakfast in no acute distress. She denies symptoms of chest pain, shortness of breath, dizziness or palpitations. She is currently maintaining sinus rhythm with frequent PACs and sinus arrhythmia. Blood pressure 166/84 heart rate 58 afebrile maintaining oxygen saturation on room air. GENERAL: Well-appearing, well-nourished and in no acute distress. NECK: Supple without JVD or thyromegaly. LUNGS: Breath sounds clear to auscultation bilaterally. Respiration equal and unlabored. No wheezes, rales or rhonchi. HEART: Irregular rate and rhythm with systolic ejection murmur at the base, no rubs or gallops. S1 and S2 heard. EXTREMITIES: Normal range of motion, no edema. No clubbing or cyanosis. Peripheral pulses intact. ASSESSMENT Paroxysmal atrial fibrillation Status post laparoscopic cholecystectomy Tachybradycardia syndrome Hypertension PLAN Clinically stable on current medical regimen. Follow up upon discharge with Dr. Blas. We will follow along as needed. Nurse Practitioner note has been reviewed, I agree with a documented findings and plan of care. Patient was seen and examined. Objective - Vital Signs Vital signs: Vital Signs Temp 97.9 F 04/08/21 04:35 Pulse 58 L 04/08/21 04:35 Resp 18 04/08/21 04:35 BP 166/84 04/08/21 04:35 Pulse Ox 94 L 04/08/21 04:35 Intake & Output 04/07/21 04/08/21 04/08/21 18:59 06:59 18:59 Intake Total 240 240 Output Total 1000 Balance 240 -1000 240 Weight 81 kg Intake: Oral 240 240 Output: Urine 1000 Other: Voiding Method Bedside Commode Bedside Commode Diaper Diaper External Catheter # Voids 3 1 - Labs CBC & Chem 7: 04/08/21 08:47 04/08/21 08:47
[2021-04-08] MEDS: LACTATED RINGERS 1,000 ML IV SCH (13:52)
--- NOTE | 2021-04-08 14:12 | P.PN ---
Subjective Progress Note Date: 04/08/21 CHIEF COMPLAINT: Abdominal pain HISTORY OF PRESENT ILLNESS: Patient is status post laparoscopic cholecystectomy. Patient denies abdominal pain. Denies any nausea or vomiting. She is tolerating regular diet. She is having bowel movements. Afebrile. WBC 10.4 hgb 13.3 PHYSICAL EXAM: VITAL SIGNS: Reviewed. GENERAL: Well-developed in no acute distress. HEENT: No sclera icterus. Extraocular movements grossly intact. Moist buccal mucosa. Head is atraumatic, normocephalic. ABDOMEN: Soft. Nondistended. Incision sites clean dry and intact NEUROLOGIC: Alert and oriented. Cranial nerves II through XII grossly intact. ASSESSMENT: 1. Cholelithiasis status post laparoscopic cholecystectomy PLAN: -Patient is stable from surgical standpoint for discharge Physician [employer] Att[employer] note has been reviewed by physician. Signing provider agrees with the documented findings, assessment, and plan of care. Objective - Vital Signs Vital signs: Vital Signs Temp 98.0 F 04/08/21 08:00 Pulse 56 L 04/08/21 12:00 Resp 16 04/08/21 12:00 BP 144/84 04/08/21 12:00 Pulse Ox 94 L 04/08/21 12:00 Intake & Output 04/07/21 04/08/21 04/08/21 18:59 06:59 18:59 Intake Total 240 420 Output Total 1000 Balance 240 -1000 420 Weight 81 kg Intake: Oral 240 420 Output: Urine 1000 Other: Voiding Method Bedside Commode Bedside Commode Bedside Commode Diaper Diaper Diaper External Catheter External Catheter # Voids 3 1 - Labs CBC & Chem 7: 04/08/21 08:47 04/08/21 08:47 Labs: Abnormal Lab Results - Last 24 Hours (Table) 04/08/21 04/08/21 Range/Units 08:47 08:47 Plt Count 465 H (150-450) k/uL Eosinophils # 0.8 H (0-0.7) k/uL BUN 18 H (7-17) mg/dL Glucose 124 H (74-99) mg/dL
[2021-04-08 15:51] VITALS: BP 136/74; PULSE 58; RESP 17; TEMP 97.7
--- NOTE | 2021-04-08 15:51 | P.DS ---
Providers Date of admission: 04/04/21 07:21 Expected date of discharge: 04/08/21 Attending physician: Junaid Rojas Consults: 04/01/21 08:55 Consult Physician Routine Consulting Provider: Junaid Rojas Consult Reason/Comments: Medical management Do you want consulting provider notified?: Yes 04/02/21 12:45 Consult Physician Routine Consulting Provider: Amrit Ferreira Consult Reason/Comments: Bradycardia Do you want consulting provider notified?: Yes [facility] Course: - Chief Complaint Cholecystectomy History of presenting complaint This is a pleasant 80-year-old patient, Dr. Walter, with a known history of CVA with left-sided weakness, dementia, hypertension, flutter fibrillation, colonic diverticulosis, hyperlipidemia, COPD, obstructive sleep apnea and history of breast cancer status post chemo and radiation, depression and previous history of smoking who is currently living at [facility]. Patient was recently discharged from the hospital March pain swelling the diagnosis of acute colitis. That improved. Also found to have a hydropic gallbladder. Patient now presented with surgical intervention for the same. Has undergone laparoscopic cholecystectomy by Dr. Robert. Postprocedure laying in bed. Rather sedated and lethargic. Though arousable. Appears comfortable. Not able to really give much of a history currently. On nasal cannula. April 022020: Sitting up in a chair. Minimal abdominal pain. Tolerating a diet. Heart rate did go down to the 40s. Cardiology consulted. Had a run of A. fib this morning. Back in sinus rhythm 04/03/2021: Patient is moved to the cardiology floor yesterday. Initially bradycardic. Admitted back in sinus rhythm. This morning went into A. fib with rapid ventricular rate. Verapamil had been held. Tenormin resumed by cardiology. We'll also put back on a Cardizem drip. Patient a bit tired. No chest pain 04/04/2021: Sitting up in a chair. Comfortable. No chest pain. Patient is been in and out of A. fib. Again rate uncontrolled. Currently on Tenormin 50 mg daily, IV Cardizem drip. No palpitations. No shortness of breath. Oral intake about 50%. April 08: Patient was followed by currently. Patient is been in sinus rhythm. Patient to follow-up with Dr. Blas upon discharge. Oral intake good. Breathing stable. No abdominal pain. Patient cleared by cardiology and surgery for discharge Consultation: Dr. Robert from [facility] Past medical history to include: CVA with left-sided weakness, dementia, hypertension, flutter fibrillation, hyperlipidemia, COPD, obstructive sleep apnea, breast cancer with history of chemo and radiation, depression, acute colitis, DJD urinary incontinence, needs gait assistance, colonic diverticulosis Social history: Smoked a pack a day from age 17. No alcohol. Currently at [facility]. Family history: 2 sisters had breast cancer. One sister and ovarian cancer Physical examination: VITAL SIGNS: Afebrile, 66, 16, 140/84, 94% room air GENERAL: Laying in bed comfortable, awake EYES: Pupils equal. Conjunctiva normal. HEENT: External appearance of nose and ears normal, oral cavity grossly normal. NECK: JVD unable to assess; masses not palpable. HEART: First seconds are normal; no edema. LUNGS: Respiratory rate normal; decreased breath sounds. ABDOMEN: Soft, no tenderness, liver spleen not palpable, no masses palpable. PSYCH: Awake answer simple questions INVESTIGATIONS, reviewed in the clinical context: April 08: White count 10.4 hemoglobin 13.3 potassium 4.0 creatinine 0.09 April 03: WBC 9.4 hemoglobin 11.3 platelets 368 potassium 3.9 creatinine 0.98 Telemetry strip was reviewed by me: Erin danielle Uncontrolled WBC 15.6 hemoglobin 11.8 potassium 4.52 and 19 creatinine 1.13 TSH 2.0 Assessment and plan: -Paroxysmal atrial flutter/fibrillation: Uncontrolled with rapid ventricular rate. Alternating with bradycardia.: Currently back in sinus rhythm Atenolol 50 mg. Verapamil SR 180 mg-discontinued. Eliquis. IV Cardizem drip- discontinued -Hydropic gallbladder followed by laparoscopic cholecystectomy By Dr. Robert. -Episode of bradycardia. Tachybradycardia syndrome. Verapamil discontinued. Patient may need pacemaker. - left hemiparesis from prior CVA -Essential hypertension Atenolol -Hyperlipidemia Lipitor -Obstructive sleep apnea- uses BiPAP -COPD in a current smoker Follow clinically -Chronic gait dysfunction Uses walker -Depression On Wellbutrin XL -Chronic insomnia from medical conditions Melatonin. -Moderate cognitive impairment, likely from late onset Alzheimer's dementia Disposition: [facility] Plan - Discharge Summary New Discharge Prescriptions: New amLODIPine [Norvasc] 5 mg PO HS tab Continue Cholecalciferol [Vitamin D3 (25 Mcg = 1000 Iu)] 50 mcg PO DAILY Multivitamins, Thera [Multivitamin (formulary)] 1 tab PO DAILY Atenolol [Tenormin] 50 mg PO DAILY Glucosamine HCl/Chondroitin Haines [Glucosamine-Chondroitin Cap] 1 cap PO DAILY Fluticasone Propionate [Flovent Diskus] 1 puff INHALATION RT-BID Pyridoxine [Vitamin B-6] 50 mg PO DAILY #30 tab Atorvastatin [Lipitor] 20 mg PO HS Melatonin 3 mg PO HS Famotidine [Pepcid] 20 mg PO DAILY Apixaban [Eliquis] 2.5 mg PO BID buPROPion SR [Wellbutrin SR] 150 mg PO DAILY Discontinued Verapamil HCl [Verapamil ER] 180 mg PO HS Discharge Medication List Cholecalciferol [Vitamin D3 (25 Mcg = 1000 Iu)] 50 mcg PO DAILY 03/09/17 [History] Multivitamins, Thera [Multivitamin (formulary)] 1 tab PO DAILY 02/12/20 [History ] Atorvastatin [Lipitor] 20 mg PO HS 02/23/21 [History] Apixaban [Eliquis] 2.5 mg PO BID 03/01/21 [History] Atenolol [Tenormin] 50 mg PO DAILY 03/01/21 [History] Famotidine [Pepcid] 20 mg PO DAILY 03/01/21 [History] Fluticasone Propionate [Flovent Diskus] 1 puff INHALATION RT-BID 03/01/21 [History] Glucosamine HCl/Chondroitin Haines [Glucosamine-Chondroitin Cap] 1 cap PO DAILY 03/01/21 [History] Melatonin 3 mg PO HS 03/01/21 [History] Pyridoxine [Vitamin B-6] 50 mg PO DAILY #30 tab 03/06/21 [Rx] buPROPion SR [Wellbutrin SR] 150 mg PO DAILY 03/27/21 [History] amLODIPine [Norvasc] 5 mg PO HS tab 04/08/21 [Rx] Follow up Appointment(s)/Referral(s): Pranay Blas MD [STAFF PHYSICIAN] - 2 Weeks Viktor Walter DO [Primary Care Provider] - 1-2 Days Benjamin Robert MD [STAFF PHYSICIAN] - 04/10/21 2:20 pm
== END 2021-04-08 20:34 | DRG 988 ==
LOC: OR 06:05 → 5NMEDONC 11:04 → OR 04-02 14:56 → 3SCARD 04-03 01:22 → OBSVTOIN 04-04 07:21
PROVIDERS: ADMIT Hospitalist; ATTEND Hospitalist
PROC: 0FT44ZZ Resection of Gallbladder, Percutaneous Endoscopic Approach (ICD-10-PCS; principal; 2021-04-01 07:40)
DX: I48.0 Paroxysmal atrial fibrillation (principal); K82.1 Hydrops of gallbladder; K80.00 Calculus of gallbladder with acute cholecystitis without obstruction; I69.354 Hemiplegia and hemiparesis following cerebral infarction affecting left non-dominant side; I49.5 Sick sinus syndrome; F02.80 Dementia in other diseases classified elsewhere, unspecified severity, without behavioral disturbance, psychotic disturbance, mood disturbance, and anxiety; G30.1 Alzheimer's disease with late onset; J44.9 Chronic obstructive pulmonary disease, unspecified; I48.92 Unspecified atrial flutter; E78.5 Hyperlipidemia, unspecified; I10 Essential (primary) hypertension; K57.30 Diverticulosis of large intestine without perforation or abscess without bleeding; F32.9 Major depressive disorder, single episode, unspecified; G47.33 Obstructive sleep apnea (adult) (pediatric); I25.10 Atherosclerotic heart disease of native coronary artery without angina pectoris; F51.04 Psychophysiologic insomnia; R32 Unspecified urinary incontinence; F17.210 Nicotine dependence, cigarettes, uncomplicated; M19.90 Unspecified osteoarthritis, unspecified site; Z79.01 Long term (current) use of anticoagulants; Z79.51 Long term (current) use of inhaled steroids; Z79.899 Other long term (current) drug therapy; Z85.3 Personal history of malignant neoplasm of breast; Z92.21 Personal history of antineoplastic chemotherapy; Z92.3 Personal history of irradiation; Z87.440 Personal history of urinary (tract) infections; Z90.13 Acquired absence of bilateral breasts and nipples; Z96.611 Presence of right artificial shoulder joint; Z96.651 Presence of right artificial knee joint; Z87.42 Personal history of other diseases of the female genital tract; Z87.448 Personal history of other diseases of urinary system; Z98.890 Other specified postprocedural states; Z90.710 Acquired absence of both cervix and uterus; Z80.3 Family history of malignant neoplasm of breast; Z80.41 Family history of malignant neoplasm of ovary
CPT/HCPCS: 80048; 80053; 83735; 84443; 85025; 88304; 93005; 94640; 94760

== ENCOUNTER 2021-10-17 08:53 | Inpatient (IN) | payer MEDICARE, OTHER ==
[2021-10-17] MEDS ORDERED: SODIUM CHLORIDE 0.9% 500 ML 500 ML IV STA (09:12)
[2021-10-17] MEDS ORDERED: DILTIAZEM DRIP BOLUS FROM BAG 1 MG SOLN IV ONE ×2 (09:15→10:33)
--- NOTE | 2021-10-17 09:27 | ED ---
General Adult HPI - General Chief complaint: Chest Pain Stated complaint: Chest Pain Time Seen by Provider: 10/17/21 08:55 Source: patient, EMS, RN notes reviewed, old records reviewed Mode of arrival: EMS Limitations: altered mental status - History of Present Illness Initial comments: This is a 80-year-old female who presents from the emergency department from a long term and she has a past medical history significant for dementia and stroke as well as atrial fibrillation. Patient comes in today because she told the staff that she's having chest pain. Currently patient is not complaining of anything to me but her history is inaccurate secondary to her dementia. Patient does not appear to be in any distress. There is no one else with the patient to get a further history. - Related Data Home Medications Medication Instructions Recorded Confirmed Multivitamins, Thera [Multivitamin 1 tab PO DAILY 02/12/20 10/17/21 (formulary)] Atorvastatin [Lipitor] 20 mg PO HS 02/23/21 10/17/21 Apixaban [Eliquis] 2.5 mg PO BID@0800,1600 03/01/21 10/17/21 Atenolol [Tenormin] 50 mg PO DAILY@0800,1600 03/01/21 10/17/21 Famotidine [Pepcid] 20 mg PO DAILY 03/01/21 10/17/21 Fluticasone Propionate [Flovent 1 puff INHALATION RT-BID 03/01/21 10/17/21 Diskus] Glucosamine HCl/Chondroitin Haines 1 cap PO HS 03/01/21 10/17/21 [Glucosamine-Chondroitin Cap] Melatonin 3 mg PO HS 03/01/21 10/17/21 Amiodarone [Cordarone] 200 mg PO BID 10/17/21 10/17/21 Cefuroxime [Ceftin] 250 mg PO BID 10/17/21 10/17/21 Healthshake 1 dose PO TID-W/MEALS 10/17/21 10/17/21 Magnesium Hydroxide [Milk of 2,400 mg PO DAILY PRN 10/17/21 10/17/21 Magnesia] Na Phos,M-B/Na Phos,Di-Ba [Fleet 133 ml RECTAL DAILY PRN 10/17/21 10/17/21 Adult] atenoloL [Tenormin] 25 mg PO DAILY@0800 10/17/21 10/17/21 bisacodyL [Dulcolax] 10 mg RECTAL DAILY PRN 10/17/21 10/17/21 buPROPion [Wellbutrin] 75 mg PO DAILY 10/17/21 10/17/21 Previous Rx's Medication Instructions Recorded Pyridoxine [Vitamin B-6] 50 mg PO DAILY #30 tab 03/06/21 Allergies Allergy/AdvReac Type Severity Reaction Status Date / Time No Known Allergies Allergy Verified 10/17/21 09:31 Review of Systems ROS Statement: Those systems with pertinent positive or pertinent negative responses have been documented in the HPI. ROS Other: All systems not noted in ROS Statement are negative. Past Medical History Past Medical History: Cancer, COPD, CVA/TIA, Dementia, Hyperlipidemia, Hypertension, Osteoarthritis (OA), Renal Disease, Sleep Apnea/CPAP/BIPAP Additional Past Medical History / Comment(s): Hx breast ca x2 left breast- radiation and chemo 2003 & 2008, bi pap machine , hx of CVA with left side weakness, DJD, Recent hospitalization for colitis, UTI & Renal failure , tachycardia & atrial flutter. , hx falls., incontinent .,up with assistance- gait unsteady, speech clear, feeds self- occasional cough when eating, some confusion. ,resides at [facility], daughter has Durable POA. 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 left thumb surgery Past Anesthesia/Blood Transfusion Reactions: No Reported Reaction Additional Past Anesthesia/Blood Transfusion Reaction / Comment(s): NO PROBLEMS WITH ANESTHESIA PER DAUGHTER KIERAN & HERNANDEZ. Past Psychological History: Depression Smoking Status: Current every day smoker Past Alcohol Use History: None Reported Past Drug Use History: None Reported - Past Family History Sister(s) Family Medical History: Cancer Additional Family Medical History / Comment(s): 2 sisters had breast ca, one sister had ovarian ca Daughter(s) Family Medical History: Cancer Additional Family Medical History / Comment(s): breast CA General Exam - General Exam Comments Initial Comments: GENERAL: Patient is well-developed and well-nourished. Patient is nontoxic and well- hydrated and is in no acute distress. ENT: Neck is soft and supple. No significant lymphadenopathy is noted. Oropharynx is clear. Moist mucous membranes. Neck has full range of motion without eliciting any pain. EYES: The sclera were anicteric and conjunctiva were pink and moist. Extraocular movements were intact and pupils were equal round and reactive to light. Eyelids were unremarkable. PULMONARY: Unlabored respirations. Good breath sounds bilaterally. No audible rales rhonchi or wheezing was noted. CARDIOVASCULAR: Patient is tachycardic at about 140 beats a minute. Rhythm is regular ABDOMEN: Soft and nontender with normal bowel sounds. SKIN: Skin is clear with no lesions or rashes and otherwise unremarkable. NEUROLOGIC: Patient is alert and oriented 1. Cranial nerves II through XII are grossly intact. Motor and sensory are also intact. Normal speech, volume and content. Symmetrical smile. MUSCULOSKELETAL: Normal extremities with adequate strength and full range of motion. No lower extremity swelling or edema. No calf tenderness. LYMPHATICS: No significant lymphadenopathy is noted PSYCHIATRIC: Normal psychiatric evaluation. 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 Patient's EKG shows no ST segment elevation or depression. - Lab Data Result diagrams: 10/17/21 09:18 10/17/21 09:18 Lab Results 10/17/21 10/17/21 10/17/21 Range/Units 09:18 09:18 09:18 WBC 9.2 (3.8-10.6) k/uL RBC 5.21 (3.80-5.40) m/uL Hgb 15.5 (11.4-16.0) gm/dL Hct 45.6 (34.0-46.0) % MCV 87.4 (80.0-100.0) fL MCH 29.7 (25.0-35.0) pg MCHC 34.0 (31.0-37.0) g/dL RDW 15.2 (11.5-15.5) % Plt Count 255 (150-450) k/uL MPV 8.3 Neutrophils % 63 % Lymphocytes % 24 % Monocytes % 8 % Eosinophils % 3 % Basophils % 1 % Neutrophils # 5.8 (1.3-7.7) k/uL Lymphocytes # 2.2 (1.0-4.8) k/uL Monocytes # 0.7 (0-1.0) k/uL Eosinophils # 0.3 (0-0.7) k/uL Basophils # 0.1 (0-0.2) k/uL PT 11.7 (9.0-12.0) sec INR 1.1 (<1.2) APTT 26.4 (22.0-30.0) sec Sodium 141 (137-145) mmol/L Potassium 4.2 (3.5-5.1) mmol/L Chloride 107 (98-107) mmol/L Carbon Dioxide 25 (22-30) mmol/L Anion Gap 9 mmol/L BUN 22 H (7-17) mg/dL Creatinine 1.03 (0.52-1.04) mg/dL Est GFR (CKD-EPI)AfAm 60 (>60 ml/min/1.73 sqM) Est GFR (CKD-EPI)NonAf 52 (>60 ml/min/1.73 sqM) Glucose 110 H (74-99) mg/dL Calcium 9.7 (8.4-10.2) mg/dL Magnesium 1.6 (1.6-2.3) mg/dL Total Bilirubin 1.6 H (0.2-1.3) mg/dL AST 25 (14-36) U/L ALT 18 (4-34) U/L Alkaline Phosphatase 115 (38-126) U/L Troponin I (0.000-0.034) ng/mL NT-Pro-B Natriuret Pep pg/mL Total Protein 6.6 (6.3-8.2) g/dL Albumin 3.5 (3.5-5.0) g/dL TSH 2.970 (0.465-4.680) mIU/L 10/17/21 10/17/21 Range/Units 09:18 09:18 WBC (3.8-10.6) k/uL RBC (3.80-5.40) m/uL Hgb (11.4-16.0) gm/dL Hct (34.0-46.0) % MCV (80.0-100.0) fL MCH (25.0-35.0) pg MCHC (31.0-37.0) g/dL RDW (11.5-15.5) % Plt Count (150-450) k/uL MPV Neutrophils % % Lymphocytes % % Monocytes % % Eosinophils % % Basophils % % Neutrophils # (1.3-7.7) k/uL Lymphocytes # (1.0-4.8) k/uL Monocytes # (0-1.0) k/uL Eosinophils # (0-0.7) k/uL Basophils # (0-0.2) k/uL PT (9.0-12.0) sec INR (<1.2) APTT (22.0-30.0) sec Sodium (137-145) mmol/L Potassium (3.5-5.1) mmol/L Chloride (98-107) mmol/L Carbon Dioxide (22-30) mmol/L Anion Gap mmol/L BUN (7-17) mg/dL Creatinine (0.52-1.04) mg/dL Est GFR (CKD-EPI)AfAm (>60 ml/min/1.73 sqM) Est GFR (CKD-EPI)NonAf (>60 ml/min/1.73 sqM) Glucose (74-99) mg/dL Calcium (8.4-10.2) mg/dL Magnesium (1.6-2.3) mg/dL Total Bilirubin (0.2-1.3) mg/dL AST (14-36) U/L ALT (4-34) U/L Alkaline Phosphatase (38-126) U/L Troponin I <0.012 (0.000-0.034) ng/mL NT-Pro-B Natriuret Pep 4820 pg/mL Total Protein (6.3-8.2) g/dL Albumin (3.5-5.0) g/dL TSH (0.465-4.680) mIU/L Disposition Clinical Impression: Acute pulmonary edema, Atrial flutter with rapid ventricular response Disposition: ADMITTED IP TO THIS HOSP Referrals: Viktor Walter DO [Primary Care Provider] - 1-2 days Time of Disposition: 10:32
[2021-10-17 09:31] LABS: Basophils # (A) 0.1 k/uL (0-0.2); Basophils % (A) 1 %; Eosinophils # (A) 0.3 k/uL (0-0.7); Eosinophils % (A) 3 %; HCT 45.6 % (34.0-46.0); HGB 15.5 gm/dL (11.4-16.0); Lymphocytes # (A) 2.2 k/uL (1.0-4.8); Lymphocytes % (A) 24 %; MCH 29.7 pg (25.0-35.0); MCV 87.4 fL (80.0-100.0); Mean Platelet Volume 8.3; Monocytes # (A) 0.7 k/uL (0-1.0); Monocytes % (A) 8 %; Neutrophils # (A) 5.8 k/uL (1.3-7.7); Neutrophils % (A) 63 %; Platelet Count 255 k/uL (150-450); RBC 5.21 m/uL (3.80-5.40); RDW 15.2 % (11.5-15.5); WBC 9.2 k/uL (3.8-10.6)
[2021-10-17] MEDS: DILTIAZEM 125 MG in SODIUM CHLORIDE 0.9% 100 ML IV SCH (09:37)
--- NOTE | 2021-10-17 09:40 | XR ---
EXAMINATION TYPE: XR chest 2V DATE OF EXAM: 10/17/2021 COMPARISON: CXR from 03/01/2021. HISTORY: Chest pain. TECHNIQUE: Frontal and two lateral views of the chest are obtained. FINDINGS: Osseous structures are demineralized. Surgical changes right shoulder is partially imaged. There is cardiomegaly with atherosclerotic thoracic aorta. There is background chronic emphysematous change with increased interstitial markings and new small bilateral pleural effusions. IMPRESSION: Suspect CHF exacerbation as there is cardiomegaly with new small bilateral pleural effus ions and mild interstitial edema. Correlate clinically.
[2021-10-17 09:45] LABS: INR 1.1 (<1.2); Partial Thromboplastin Time 26.4 sec (22.0-30.0); Prothrombin Time 11.7 sec (9.0-12.0)
[2021-10-17 09:50] LABS: Albumin 3.5 g/dL (3.5-5.0); Calcium 9.7 mg/dL (8.4-10.2); Magnesium 1.6 mg/dL (1.6-2.3); Potassium 4.2 mmol/L (3.5-5.1); Total Bilirubin 1.6 mg/dL (0.2-1.3); Total Protein 6.6 g/dL (6.3-8.2)
[2021-10-17] MEDS ORDERED: NITROGLYCERIN SL TABS 0.4 MG TAB SUBLINGUAL PRN (12:16)
[2021-10-17] MEDS ORDERED: bisacodyL 10 MG SUPP RECTAL PRN (12:36)
--- NOTE | 2021-10-17 13:23 | P.HPIM ---
History of Present Illness H&P Date: 10/17/21 Chief Complaint: Chest pain History of presenting complaint This is a pleasant 80-year-old patient, Dr. Walter, with a known history of CVA with left-sided weakness, dementia, hypertension, hyperlipidemia, COPD, obstructive sleep apnea and history of breast cancer status post chemo and radiation, depression and previous history of smoking who is currently living at [facility] Because of significant cognitive impairment patient unable to give much of a his tory. Per the EMS run sheet patient is complaining of chest in and pressure midsternum not radiating this morning. The staff given her on nitro sublingual and the pain subsided. EKG showed the heart rate of 110. Care patient's heart rate is around 140. Found to be in possible flutter/atrial tachycardia. Started on a Cardizem drip. Patient does feel tired. Can only answer simple questions. Currently denies any chest pain. Review of systems: GEN.: Tired EYES: None HEENT: None NECK: None RESPIRATORY: None CARDIOVASCULAR: As above GASTROINTESTINAL: None GENITOURINARY: None MUSCULOSKELETAL: Joint pains LYMPHATICS: None HEMATOLOGICAL: None PSYCHIATRY: Forgetful NEUROLOGICAL: None Past medical history to include: CVA with left-sided weakness, dementia, hypertension, hyperlipidemia, COPD, obstructive sleep apnea, history of breast cancer history chemoradiation, depression, atrial flutter, Social history: At [facility]. Patient smoking about a pack a day for over 60 years. No alcohol Family history: 2 sisters had breast cancer. One sister had ovarian cancer Physical examination: VITAL SIGNS: 97.4, 133, 16, 129/101, 91% room air GENERAL: BMI 25, laying in bed, awake, slightly anxious. EYES: Pupils equal. Conjunctiva normal. HEENT: External appearance of nose and ears normal, oral cavity grossly normal. NECK: JVD not raised; masses not palpable. HEART: Heart sounds irregular no edema. LUNGS: Respiratory rate normal; decreased breath sounds. ABDOMEN: Soft, nontender, liver spleen not palpable, no masses palpable. PSYCH: Patient knows her name, does not know why she is a wart is a yearl. MUSCULOSKELETAL:No Clubbing/cyanosis;muscles-grossly intact, evidence of OA NEUROLOGICAL: Cranial nerves grossly intact; no facial asymmetry, chronic left- sided weakness LYMPHATICS: No lymph nodes palpable in the axilla and neck Investigations: White count 9.2 hemoglobin 15.5 platelets 255 potassium 4.2 creatinine 1.03 EKG tracing personally reviewed by me-possible atrial tachycardia with a rate of 135 Chest x-ray film personally reviewed by me-iván schwartz. Venous prominence. Small pleural effusion Assessment and plan: - probable atrial tachycardia with a rapid ventricular rate up to 135. IV Cardizem drip. Cardiology consulted. - left hemiparesis from prior CVA -Essential hypertension Atenolol, -Hyperlipidemia Lipitor -Obstructive sleep apnea- uses BiPAP -COPD in a current smoker Follow clinically -Chronic gait dysfunction Uses walker -Depression On Wellbutrin XL -Chronic insomnia from medical conditions Melatonin. - severe cognitive impairment, likely from late onset Alzheimer's dementia patient's currently on IV Cardizem drip. Home medications resumed. Telemetry. Cardiology consulted. Given the complexity and severity of patient's condition expect the patient to be in the hospital at least for 2 overnights Past Medical History Past Medical History: Cancer, COPD, CVA/TIA, Dementia, Hyperlipidemia, Hypertension, Osteoarthritis (OA), Renal Disease, Sleep Apnea/CPAP/BIPAP Additional Past Medical History / Comment(s): Hx breast ca x2 left breast- radiation and chemo 2003 & 2008, bi pap machine , hx of CVA with left side weakness, DJD, Recent hospitalization for colitis, UTI & Renal failure , tachycardia & atrial flutter. , hx falls., incontinent .,up with assistance- gait unsteady, speech clear, feeds self- occasional cough when eating, some confusion. ,resides at [facility], daughter has Durable POA. 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 left thumb surgery Past Anesthesia/Blood Transfusion Reactions: No Reported Reaction Additional Past Anesthesia/Blood Transfusion Reaction / Comment(s): NO PROBLEMS WITH ANESTHESIA PER DAUGHTER KIERAN & HERNANDEZ. Past Psychological History: Depression Smoking Status: Current every day smoker Past Alcohol Use History: None Reported Past Drug Use History: None Reported - Past Family History Sister(s) Family Medical History: Cancer Additional Family Medical History / Comment(s): 2 sisters had breast ca, one sister had ovarian ca Daughter(s) Family Medical History: Cancer Additional Family Medical History / Comment(s): breast CA Medications and Allergies Home Medications Medication Instructions Recorded Confirmed Type Multivitamins, Thera [Multivitamin 1 tab PO DAILY 02/12/20 10/17/21 History (formulary)] Atorvastatin [Lipitor] 20 mg PO HS 02/23/21 10/17/21 History Apixaban [Eliquis] 2.5 mg PO BID@0800,1600 03/01/21 10/17/21 History Atenolol [Tenormin] 50 mg PO DAILY@0800,1600 03/01/21 10/17/21 History Famotidine [Pepcid] 20 mg PO DAILY 03/01/21 10/17/21 History Fluticasone Propionate [Flovent 1 puff INHALATION RT-BID 03/01/21 10/17/21 History Diskus] Glucosamine HCl/Chondroitin Haines 1 cap PO HS 03/01/21 10/17/21 History [Glucosamine-Chondroitin Cap] Melatonin 3 mg PO HS 03/01/21 10/17/21 History Pyridoxine [Vitamin B-6] 50 mg PO DAILY #30 tab 03/06/21 10/17/21 Rx Amiodarone [Cordarone] 200 mg PO BID 10/17/21 10/17/21 History Cefuroxime [Ceftin] 250 mg PO BID 10/17/21 10/17/21 History Healthshake 1 dose PO TID-W/MEALS 10/17/21 10/17/21 History Magnesium Hydroxide [Milk of 2,400 mg PO DAILY PRN 10/17/21 10/17/21 History Magnesia] Na Phos,M-B/Na Phos,Di-Ba [Fleet 133 ml RECTAL DAILY PRN 10/17/21 10/17/21 History Adult] atenoloL [Tenormin] 25 mg PO DAILY@0800 10/17/21 10/17/21 History bisacodyL [Dulcolax] 10 mg RECTAL DAILY PRN 10/17/21 10/17/21 History buPROPion [Wellbutrin] 75 mg PO DAILY 10/17/21 10/17/21 History Allergies Allergy/AdvReac Type Severity Reaction Status Date / Time No Known Allergies Allergy Verified 10/17/21 09:31 Physical Exam Vitals: Vital Signs Temp Pulse Pulse Resp BP Pulse Ox 10/17/21 11:00 130 H 10/17/21 09:58 130 H 16 133/102 10/17/21 09:40 130 H 16 138/106 92 L 10/17/21 08:58 133 H 10/17/21 08:56 97.4 F L 133 H 16 129/101 91 L Intake and Output 10/16/21 10/17/21 10/17/21 22:59 06:59 14:59 Intake Total 11 Balance 11 Intake: Intake, IV Titration 11 Amount Diltiazem 125 mg In 11 Sodium Chloride 0.9% 100 ml @ 5 MG/HR 5 mls/hr IV .Q24H [facility] Rx#:[id number] Other: Weight 68.039 kg Results CBC & Chem 7: 10/17/21 09:18 10/17/21 09:18 Labs: Abnormal Lab Results - Last 24 Hours (Table) 10/17/21 Range/Units 09:18 BUN 22 H (7-17) mg/dL Glucose 110 H (74-99) mg/dL Total Bilirubin 1.6 H (0.2-1.3) mg/dL
[2021-10-17] MEDS: atenoloL 50 MG TAB PO SCH (16:08)
[2021-10-17] MEDS: APIXABAN 2.5 MG TABLET PO SCH (16:08)
[2021-10-17] MEDS ORDERED: NON FORMULARY DRUG (Healthshake 1 DOSE) PO SCH (17:30)
[2021-10-17] MEDS: ATORVASTATIN 20 MG TAB PO SCH (22:11)
[2021-10-18] MEDS: IPRATROPIUM-ALBUTEROL 3 ML NEB INHALATION PRN ×2 (00:12→19:47)
[2021-10-18] MEDS ORDERED: atenoloL 25 MG TAB PO SCH (08:00)
[2021-10-18] MEDS ORDERED: ASPIRIN 325 MG TAB PO SCH (09:00)
[2021-10-18] MEDS: FLUTICASONE 44 MCG INHALER INHALATION SCH ×2 (11:42→19:49)
[2021-10-18 11:46] LABS: Chol/HDL Ratio 3.77 Ratio; LDL Cholesterol,Calculated 63.3 mg/dL (0.0-131.0); VLDL Calculation 19.02 mg/dL (5.00-40.00)
[2021-10-18] MEDS: APIXABAN 2.5 MG TABLET PO SCH ×2 (11:58→17:15)
[2021-10-18] MEDS: atenoloL 50 MG TAB PO SCH ×2 (11:58→17:05)
[2021-10-18] MEDS: PYRIDOXINE 50 MG TAB PO SCH (11:59)
[2021-10-18] MEDS: FAMOTIDINE 20 MG TAB PO SCH (11:59)
[2021-10-18] MEDS: buPROPion 75 MG TAB PO SCH (11:59)
[2021-10-18] MEDS: MULTIVITAMINS, THERA 1 EACH TAB PO SCH (11:59)
[2021-10-18] MEDS: DILTIAZEM 125 MG in SODIUM CHLORIDE 0.9% 100 ML IV SCH (15:13)
--- NOTE | 2021-10-18 16:24 | P.PN ---
Progress Note - Text Progress Note Date: 10/18/21 Chief Complaint: Chest pain History of presenting complaint This is a pleasant 80-year-old patient, Dr. Walter, with a known history of CVA with left-sided weakness, dementia, hypertension, hyperlipidemia, COPD, obstructive sleep apnea and history of breast cancer status post chemo and radiation, depression and previous history of smoking who is currently living at [facility] Because of significant cognitive impairment patient unable to give much of a history. Per the EMS run sheet patient is complaining of chest in and pressure midsternum not radiating this morning. The staff given her on nitro sublingual and the pain subsided. EKG showed the heart rate of 110. Care patient's heart rate is around 140. Found to be in possible flutter/atrial tachycardia. Started on a Cardizem drip. Patient does feel tired. Can only answer simple questions. Currently denies any chest pain. Admitted with what appeared to be atrial tachycardia with a rapid rate/atrial flutter. Started on a Cardizem drip. October 18: Laying in bed. Tired. Heart rate just above 100. Cardizem drip. Awaiting cardiology input. Active Medications Albuterol/Ipratropium (Ipratropium-Albuterol 3 Ml Neb) 3 ml INHALATION RT-Q4H PRN PRN Reason: Shortness Of Breath Or Wheezing Last Admin: 10/18/21 00:12 Dose: 3 ml Documented by: Apixaban (Apixaban 2.5 Mg Tablet) 2.5 mg PO BID@0800,1600 [facility]; Protocol Last Admin: 10/18/21 11:58 Dose: 2.5 mg Documented by: Aspirin (Aspirin 325 Mg Tab) 325 mg PO DAILY [facility] Last Admin: 10/18/21 11:58 Dose: 325 mg Documented by: Atenolol (Atenolol 25 Mg Tab) 25 mg PO DAILY@0800 [facility] Last Admin: 10/18/21 11:59 Dose: 25 mg Documented by: Atenolol (Atenolol 50 Mg Tab) 50 mg PO DAILY@0800,1600 [facility] Last Admin: 10/18/21 11:58 Dose: 50 mg Documented by: Atorvastatin Calcium (Atorvastatin 20 Mg Tab) 20 mg PO [facility] Last Admin: 10/17/21 22:11 Dose: Not Given Documented by: Bisacodyl (Bisacodyl 10 Mg Supp) 10 mg RECTAL DAILY PRN PRN Reason: Constipation Bupropion HCl (Bupropion 75 Mg Tab) 75 mg PO DAILY [facility] Last Admin: 10/18/21 11:59 Dose: 75 mg Documented by: Famotidine (Famotidine 20 Mg Tab) 20 mg PO DAILY [facility] Last Admin: 10/18/21 11:59 Dose: 20 mg Documented by: Fluticasone Propionate (Fluticasone 44 Mcg Inhaler) 1 puff INHALATION RT-BID [facility] Last Admin: 10/18/21 11:42 Dose: 1 puff Documented by: Diltiazem HCl 125 mg/ Sodium (Chloride) 125 mls @ 5 mls/hr IV .Q24H [facility] Last Admin: 10/18/21 15:13 Dose: Not Given Documented by: Multivitamins (Multivitamins, Thera 1 Each Tab) 1 each PO DAILY [facility] Last Admin: 10/18/21 11:59 Dose: 1 each Documented by: Nitroglycerin (Nitroglycerin Sl Tabs 0.4 Mg Tab) 0.4 mg SUBLINGUAL Q5M PRN PRN Reason: Chest Pain Pyridoxine HCl (Pyridoxine 50 Mg Tab) 50 mg PO DAILY [facility] Last Admin: 10/18/21 11:59 Dose: 50 mg Documented by: Past medical history to include: CVA with left-sided weakness, dementia, hypertension, hyperlipidemia, COPD, obstructive sleep apnea, history of breast cancer history chemoradiation, depression, atrial flutter, Social history: At [facility]. Patient smoking about a pack a day for over 60 years. No alcohol Family history: 2 sisters had breast cancer. One sister had ovarian cancer Physical examination: VITAL SIGNS: 97.8, 106, 18, 146/92, 94% on 3 L GENERAL: laying in bed, awake, EYES: Pupils equal. Conjunctiva normal. HEENT: External appearance of nose and ears normal, oral cavity grossly normal. NECK: JVD not raised; masses not palpable. HEART: Heart sounds irregular no edema. LUNGS: Respiratory rate normal; decreased breath sounds. ABDOMEN: Soft, nontender, liver spleen not palpable, no masses palpable. PSYCH: Patient knows her name, does not know why she is a wart is a yearl. MUSCULOSKELETAL:No Clubbing/cyanosis;muscles-grossly intact, evidence of OA NEUROLOGICAL: Cranial nerves grossly intact; no facial asymmetry, chronic left- sided weakness Investigations: White count 9.2 hemoglobin 15.5 platelets 255 potassium 4.2 creatinine 1.03 EKG tracing personally reviewed by me-possible atrial tachycardia with a rate of 135 Chest x-ray film personally reviewed by me-iván schwartz. Venous prominence. Small pleural effusion Assessment and plan: - probable atrial tachycardia/atrial fibrillation with a rapid ventricular rate up to 135 on presentation., Still uncontrolled IV Cardizem drip. Change Tenormin to 100 mg Lopressor twice a day. Cardiology consulted. - left hemiparesis from prior CVA -Essential hypertension Atenolol, -Hyperlipidemia Lipitor -Obstructive sleep apnea- uses BiPAP -COPD in a current smoker Follow clinically -Chronic gait dysfunction Uses walker -Depression On Wellbutrin XL -Chronic insomnia from medical conditions Melatonin. - severe cognitive impairment, likely from late onset Alzheimer's dementia DC Tenormin. Lopressor 100 mg twice a day. Cardizem drip. Other medications to continue. Await cardiology input
--- NOTE | 2021-10-18 17:25 | P.CRDCN ---
History of Present Illness History of present illness: HISTORY OF PRESENTING ILLNESS Patient is pleasant 80-year-old female with history of paroxysmal atrial fibrillation, hypertension, hyperlipidemia, previous cholecystectomy, asymptomatic bradycardia in the past, dementia stroke with left-sided weakness, obstructive sleep apnea, breast cancer status post chemo and radiation who presents from [facility] secondary to increasing shortness breath per patient. There is some documentation of possible chest pain and pressure however patient denies any. Patient however poor historian. She was found to be in A. fib with RVR with heart rates in the 110 to 140s and was started on a Cardizem drip with heart rates improved into the 70s to 80s. She was placed on her home medications which currently includes amiodarone 200 mg twice a day. Patient d enies any chest pain or pressure or lightheadedness. Blood work shows white blood cell count 9.2, hemoglobin 15.5, BUN 22, creatinine 1, total bilirubin 1.6, troponin normal 3, proBNP 4800. Chest x-ray shows new small bilateral pleural effusions and mild interstitial edema with suspected CHF. She does have decreased breath sounds at the bases as well as diffuse wheeze and mild crackles. Last echo from 02/24/2021 showed EF 50-55%, moderate LVH, mild tricuspid regurgitation. REVIEW OF SYSTEMS At the time of my exam: CONSTITUTIONAL: Denies fever or chills. CARDIOVASCULAR: Denies chest pain, shortness of breath, orthopnea, PND or palpitations. RESPIRATORY: Denies cough. GASTROINTESTINAL: Denies abdominal pain, diarrhea, constipation, nausea or vomiting. MUSCULOSKELETAL: Denies myalgias. NEUROLOGIC: Denies numbness, tingling or weakness. ENDOCRINE: Denies fatigue, weight change, polydipsia or polyurina. GENITOURINARY: Denies burning, hematuria or urgency with micturation. HEMATOLOGIC: Denies history of anemia or bleeding. PHYSICAL EXAMINATION Vital signs reviewed. CONSTITUTIONAL: No apparent distress. HEENT: Head is normocephalic. Pupils are equal, round. Sclerae anicteric. Mucous membranes of the mouth are moist. No JVD. No carotid bruit. CHEST EXAMINATION: Decreased breath sounds at bases with mild crackles and wheeze HEART EXAMINATION: Regular rate and rhythm. S1, S2 heard. No murmurs, gallops or rub. ABDOMEN: Soft, nontender. Positive bowel sounds. EXTREMITIES: 2+ peripheral pulses, no lower extremity edema and no calf tenderness. NEUROLOGIC EXAMINATION: Patient is awake, confused. ASSESSMENT 1. Persistent atrial fibrillation with RVR 2. Acute on chronic diastolic heart failure 3. Acute on chronic respiratory failure likely multifactorial secondary to he art failure plus or minus pulmonary source with wheeze 4. History of stroke, dementia 5. Unclear history of possible chest pain however currently denies any, troponins normal PLAN We'll decrease the amiodarone dose from 200 twice a day to 200 daily as she should not be on that have a dose long-term. She also appears to be volume overloaded on exam with crackles and chest x-ray showing new effusions. We will monitor response of IV Lasix and treat for heart failure. Patient denies significant chest pain and continue with conservative management given no complaints of chest pain and normal troponins. No indication for 2.5 mg dosing of Eliquis and will change to 5mg bid. Further recommendations follow. Past Medical History Past Medical History: Cancer, COPD, CVA/TIA, Dementia, Hyperlipidemia, Hypertension, Osteoarthritis (OA), Renal Disease, Sleep Apnea/CPAP/BIPAP Additional Past Medical History / Comment(s): Hx breast ca x2 left breast- radiation and chemo 2003 & 2009, bi pap machine , hx of CVA with left side w EFRAIN lucas, Recent hospitalization for colitis, UTI & Renal failure , tachycardia & atrial flutter. , hx falls., incontinent .,up with assistance- gait unsteady, speech clear, feeds self- occasional cough when eating, some confusion. ,resides at [facility], daughter has Durable POA. 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 left thumb surgery Past Anesthesia/Blood Transfusion Reactions: No Reported Reaction Additional Past Anesthesia/Blood Transfusion Reaction / Comment(s): NO PROBLEMS WITH ANESTHESIA PER DAUGHTER KIERAN & HERNANDEZ. Past Psychological History: Depression Smoking Status: Current every day smoker Past Alcohol Use History: None Reported Past Drug Use History: None Reported - Past Family History Sister(s) Family Medical History: Cancer Additional Family Medical History / Comment(s): 2 sisters had breast ca, one sister had ovarian ca Daughter(s) Family Medical History: Cancer Additional Family Medical History / Comment(s): breast CA Medications and Allergies Home Medications Medication Instructions Recorded Confirmed Type Multivitamins, Thera [Multivitamin 1 tab PO DAILY 02/12/20 10/17/21 History (formulary)] Atorvastatin [Lipitor] 20 mg PO HS 02/23/21 10/17/21 History Apixaban [Eliquis] 2.5 mg PO BID@0800,1600 03/01/21 10/17/21 History Atenolol [Tenormin] 50 mg PO DAILY@0800,1600 03/01/21 10/17/21 History Famotidine [Pepcid] 20 mg PO DAILY 03/01/21 10/17/21 History Fluticasone Propionate [Flovent 1 puff INHALATION RT-BID 03/01/21 10/17/21 History Diskus] Glucosamine HCl/Chondroitin Haines 1 cap PO HS 03/01/21 10/17/21 History [Glucosamine-Chondroitin Cap] Melatonin 3 mg PO HS 03/01/21 10/17/21 History Pyridoxine [Vitamin B-6] 50 mg PO DAILY #30 tab 03/06/21 10/17/21 Rx Amiodarone [Cordarone] 200 mg PO BID 10/17/21 10/17/21 History Cefuroxime [Ceftin] 250 mg PO BID 10/17/21 10/17/21 History Healthshake 1 dose PO TID-W/MEALS 10/17/21 10/17/21 History Magnesium Hydroxide [Milk of 2,400 mg PO DAILY PRN 10/17/21 10/17/21 History Magnesia] Na Phos,M-B/Na Phos,Di-Ba [Fleet 133 ml RECTAL DAILY PRN 10/17/21 10/17/21 History Adult] atenoloL [Tenormin] 25 mg PO DAILY@0800 10/17/21 10/17/21 History bisacodyL [Dulcolax] 10 mg RECTAL DAILY PRN 10/17/21 10/17/21 History buPROPion [Wellbutrin] 75 mg PO DAILY 10/17/21 10/17/21 History Aspirin 81 mg PO DAILY #90 tab 10/18/21 Rx Clopidogrel Bisulfate [Plavix] 75 mg PO DAILY #90 tab 10/18/21 Rx Allergies Allergy/AdvReac Type Severity Reaction Status Date / Time No Known Allergies Allergy Verified 10/17/21 09:31 Physical Exam Vitals: Vital Signs Temp Pulse Pulse Resp BP BP Pulse Ox 10/18/21 16:00 97.8 F 113 H 18 138/75 90 L 10/18/21 11:51 97.8 F 106 H 18 146/92 94 L 10/18/21 08:00 97.9 F 98 18 121/81 93 L 10/18/21 04:00 97.9 F 65 18 127/79 93 L 10/18/21 02:00 70 19 10/18/21 00:23 86 10/18/21 00:13 83 10/17/21 23:48 98.1 F 70 19 143/83 91 L 10/17/21 20:30 82 16 136/88 96 10/17/21 19:00 98.5 F 73 16 114/94 96 10/17/21 18:46 96 16 122/103 95 10/17/21 17:37 130 H 16 122/104 95 Intake and Output 10/18/21 10/18/21 10/18/21 06:59 14:59 22:59 Other: Voiding Method Diaper # Voids 2 1 Weight 67.5 kg Results 10/17/21 09:18 10/17/21 09:18 Cardiac Enzymes 10/17/21 10/17/21 10/17/21 Range/Units 09:18 09:18 09:18 WBC 9.2 (3.8-10.6) k/uL RBC 5.21 (3.80-5.40) m/uL Hgb 15.5 (11.4-16.0) gm/dL Hct 45.6 (34.0-46.0) % MCV 87.4 (80.0-100.0) fL MCH 29.7 (25.0-35.0) pg MCHC 34.0 (31.0-37.0) g/dL RDW 15.2 (11.5-15.5) % Plt Count 255 (150-450) k/uL MPV 8.3 Neutrophils % 63 % Lymphocytes % 24 % Monocytes % 8 % Eosinophils % 3 % Basophils % 1 % Neutrophils # 5.8 (1.3-7.7) k/uL Lymphocytes # 2.2 (1.0-4.8) k/uL Monocytes # 0.7 (0-1.0) k/uL Eosinophils # 0.3 (0-0.7) k/uL Basophils # 0.1 (0-0.2) k/uL PT 11.7 (9.0-12.0) sec INR 1.1 (<1.2) APTT 26.4 (22.0-30.0) sec Sodium 141 (137-145) mmol/L Potassium 4.2 (3.5-5.1) mmol/L Chloride 107 (98-107) mmol/L Carbon Dioxide 25 (22-30) mmol/L Anion Gap 9 mmol/L BUN 22 H (7-17) mg/dL Creatinine 1.03 (0.52-1.04) mg/dL Est GFR (CKD-EPI)AfAm 60 (>60 ml/min/1.73 sqM) Est GFR (CKD-EPI)NonAf 52 (>60 ml/min/1.73 sqM) Glucose 110 H (74-99) mg/dL Calcium 9.7 (8.4-10.2) mg/dL Magnesium 1.6 (1.6-2.3) mg/dL Total Bilirubin 1.6 H (0.2-1.3) mg/dL ALT 18 (4-34) U/L Alkaline Phosphatase 115 (38-126) U/L NT-Pro-B Natriuret Pep pg/mL Total Protein 6.6 (6.3-8.2) g/dL Albumin 3.5 (3.5-5.0) g/dL Triglycerides (0.00-149.00) mg/dL Cholesterol (0.00-200.00) mg/dL LDL Cholesterol, Calc (0.0-131.0) mg/dL VLDL Cholesterol, Calc (5.00-40.00) mg/dL HDL Cholesterol (40.00-60.00) mg/dL Cholesterol/HDL Ratio Ratio TSH 2.970 (0.465-4.680) mIU/L 10/17/21 10/18/21 Range/Units 09:18 07:46 WBC (3.8-10.6) k/uL RBC (3.80-5.40) m/uL Hgb (11.4-16.0) gm/dL Hct (34.0-46.0) % MCV (80.0-100.0) fL MCH (25.0-35.0) pg MCHC (31.0-37.0) g/dL RDW (11.5-15.5) % Plt Count (150-450) k/uL MPV Neutrophils % % Lymphocytes % % Monocytes % % Eosinophils % % Basophils % % Neutrophils # (1.3-7.7) k/uL Lymphocytes # (1.0-4.8) k/uL Monocytes # (0-1.0) k/uL Eosinophils # (0-0.7) k/uL Basophils # (0-0.2) k/uL PT (9.0-12.0) sec INR (<1.2) APTT (22.0-30.0) sec Sodium (137-145) mmol/L Potassium (3.5-5.1) mmol/L Chloride (98-107) mmol/L Carbon Dioxide (22-30) mmol/L Anion Gap mmol/L BUN (7-17) mg/dL Creatinine (0.52-1.04) mg/dL Est GFR (CKD-EPI)AfAm (>60 ml/min/1.73 sqM) Est GFR (CKD-EPI)NonAf (>60 ml/min/1.73 sqM) Glucose (74-99) mg/dL Calcium (8.4-10.2) mg/dL Magnesium (1.6-2.3) mg/dL Total Bilirubin (0.2-1.3) mg/dL ALT (4-34) U/L Alkaline Phosphatase (38-126) U/L NT-Pro-B Natriuret Pep 4820 pg/mL Total Protein (6.3-8.2) g/dL Albumin (3.5-5.0) g/dL Triglycerides 95.10 (0.00-149.00) mg/dL Cholesterol 112.00 (0.00-200.00) mg/dL LDL Cholesterol, Calc 63.3 (0.0-131.0) mg/dL VLDL Cholesterol, Calc 19.02 (5.00-40.00) mg/dL HDL Cholesterol 29.70 L (40.00-60.00) mg/dL Cholesterol/HDL Ratio 3.77 Ratio TSH (0.465-4.680) mIU/L Lipids 10/18/21 Range/Units 07:46 Triglycerides 95.10 (0.00-149.00) mg/dL Cholesterol 112.00 (0.00-200.00) mg/dL HDL Cholesterol 29.70 L (40.00-60.00) mg/dL Cholesterol/HDL Ratio 3.77 Ratio Current Medications Generic Name Dose Route Start Last Admin Trade Name Freq PRN Reason Stop Dose Admin Albuterol/Ipratropium 3 ml 10/17/21 23:31 10/18/21 00:12 Ipratropium-Albuterol 3 Ml Neb INHALATION 3 ml RT-Q4H PRN Administration Shortness Of Breath Or Wheezing Amiodarone HCl 200 mg 10/18/21 21:00 Amiodarone 200 Mg Tab PO BID CABRERA Apixaban 2.5 mg 10/17/21 16:00 10/18/21 17:15 Apixaban 2.5 Mg Tablet PO 2.5 mg BID@0800,1600 CABRERA Administration Protocol Aspirin 325 mg 10/18/21 09:00 10/18/21 11:58 Aspirin 325 Mg Tab PO 325 mg DAILY CABRERA Administration Atorvastatin Calcium 20 mg 10/17/21 21:00 10/17/21 22:11 Atorvastatin 20 Mg Tab PO Not Given HS CABRERA Bisacodyl 10 mg 10/17/21 12:36 Bisacodyl 10 Mg Supp RECTAL DAILY PRN Constipation Bupropion HCl 75 mg 10/18/21 09:00 10/18/21 11:59 Bupropion 75 Mg Tab PO 75 mg DAILY CABRERA Administration Famotidine 20 mg 10/18/21 09:00 10/18/21 11:59 Famotidine 20 Mg Tab PO 20 mg DAILY CABRERA Administration Fluticasone Propionate 1 puff 10/18/21 08:00 10/18/21 11:42 Fluticasone 44 Mcg Inhaler INHALATION 1 puff RT-BID CABRERA Administration Diltiazem HCl 125 mg/ Sodium 125 mls @ 5 mls/hr 10/17/21 09:15 10/18/21 15:13 Chloride IV Not Given .Q24H CABRERA 5 MG/HR Metoprolol Tartrate 100 mg 10/18/21 21:00 Metoprolol Tartrate 50 Mg Tab PO BID CABRERA Multivitamins 1 each 10/18/21 09:00 10/18/21 11:59 Multivitamins, Thera 1 Each Tab PO 1 each DAILY CABRERA Administration Nitroglycerin 0.4 mg 10/17/21 12:16 Nitroglycerin Sl Tabs 0.4 Mg Tab SUBLINGUAL Q5M PRN Chest Pain Pyridoxine HCl 50 mg 10/18/21 09:00 10/18/21 11:59 Pyridoxine 50 Mg Tab PO 50 mg DAILY CABRERA Administration Intake and Output 10/18/21 10/18/21 10/18/21 06:59 14:59 22:59 Other: Voiding Method Diaper # Voids 2 1 Weight 67.5 kg 10/17/21 09:18 10/17/21 09:18
[2021-10-18] MEDS: FUROSEMIDE 10 MG/ML 4 ML VIAL IV SCH (17:34)
[2021-10-18] MEDS ORDERED: AMIODARONE 200 MG TAB PO SCH (21:00)
[2021-10-18] MEDS: ATORVASTATIN 20 MG TAB PO SCH (21:09)
[2021-10-18] MEDS: METOPROLOL TARTRATE 50 MG TAB PO SCH (21:09)
[2021-10-19] MEDS: FUROSEMIDE 10 MG/ML 4 ML VIAL IV SCH ×2 (06:32→18:09)
[2021-10-19] MEDS: APIXABAN 5 MG TAB PO SCH ×2 (08:12→16:50)
[2021-10-19] MEDS: METOPROLOL TARTRATE 50 MG TAB PO SCH ×2 (08:13→21:27)
[2021-10-19] MEDS: PYRIDOXINE 50 MG TAB PO SCH (08:13)
[2021-10-19] MEDS: FAMOTIDINE 20 MG TAB PO SCH (08:13)
[2021-10-19] MEDS: MULTIVITAMINS, THERA 1 EACH TAB PO SCH (08:13)
[2021-10-19] MEDS: AMIODARONE 200 MG TAB PO SCH (08:13)
[2021-10-19] MEDS: buPROPion 75 MG TAB PO SCH (08:13)
[2021-10-19] MEDS: FLUTICASONE 44 MCG INHALER INHALATION SCH ×2 (08:37→20:09)
[2021-10-19] MEDS: DILTIAZEM 125 MG in SODIUM CHLORIDE 0.9% 100 ML IV SCH (08:57)
--- NOTE | 2021-10-19 15:40 | P.PN ---
Subjective HISTORY OF PRESENTING ILLNESS Patient is pleasant 80-year-old female with history of paroxysmal atrial fibrillation, hypertension, hyperlipidemia, previous cholecystectomy, asymptomatic bradycardia in the past, dementia stroke with left-sided weakness, obstructive sleep apnea, breast cancer status post chemo and radiation who presents from ECF secondary to increasing shortness breath per patient. There is some documentation of possible chest pain and pressure however patient denies any. Patient however poor historian. She was found to be in A. fib with RVR with heart rates in the 110 to 140s and was started on a Cardizem drip with heart rates improved into the 70s to 80s. She was placed on her home medications which currently includes amiodarone 200 mg twice a day. Patient denies any chest pain or pressure or lightheadedness. Blood work shows white blood cell count 9.2, hemoglobin 15.5, BUN 22, creatinine 1, total bilirubin 1.6, troponin normal 3, proBNP 4800. Chest x-ray shows new small bilateral pleural effusions and mild interstitial edema with suspected CHF. She does have decreased breath sounds at the bases as well as diffuse wheeze and mild crackles. Last echo from 02/24/2021 showed EF 50-55%, moderate LVH, mild tricuspid regurgitation. 10/19 Patient seen and examined. Patient still with A. fib with heart rates 90s up to 120s to 130s. Denies any chest pain or pressure or shortness breath. PHYSICAL EXAMINATION Vital signs reviewed. CONSTITUTIONAL: No apparent distress. HEENT: Head is normocephalic. Pupils are equal, round. Sclerae anicteric. Mucous membranes of the mouth are moist. No JVD. No carotid bruit. CHEST EXAMINATION: Decreased breath sounds at bases with mild crackles and wheeze HEART EXAMINATION: Regular rate and rhythm. S1, S2 heard. No murmurs, gallops or rub. ABDOMEN: Soft, nontender. Positive bowel sounds. EXTREMITIES: 2+ peripheral pulses, no lower extremity edema and no calf tend erness. NEUROLOGIC EXAMINATION: Patient is awake, confused. ASSESSMENT 1. Persistent atrial fibrillation with RVR 2. Acute on chronic diastolic heart failure 3. Acute on chronic respiratory failure likely multifactorial secondary to heart failure plus or minus pulmonary source with wheeze 4. History of stroke, dementia 5. Unclear history of possible chest pain however currently denies any, troponins normal PLAN Amiodarone dose decreased from 200 twice a day to 200 daily as she should not be on that high of a dose long-term. Continue with diuresis and monitor kidney function and electrolytes Increase Lopressor to 150 mg twice a day given continued mild RVR Patient denies significant chest pain and continue with conservative management given no complaints of chest pain and normal troponins. Further recommendations follow. Objective - Vital Signs Vital signs: Vital Signs Temp 98.2 F 10/19/21 08:11 Pulse 105 H 10/19/21 12:16 Resp 16 10/19/21 12:14 BP 136/97 10/19/21 12:14 Pulse Ox 98 10/19/21 12:14 Intake & Output 10/18/21 10/19/21 10/19/21 18:59 06:59 18:59 Other: Voiding Method Diaper Diaper Diaper # Voids 1 1 - Labs CBC & Chem 7: 10/17/21 09:18 10/17/21 09:18
--- NOTE | 2021-10-19 17:30 | P.PN ---
Progress Note - Text Progress Note Date: 10/19/21 Chief Complaint: Chest pain History of presenting complaint This is a pleasant 80-year-old patient, Dr. Walter, with a known history of CVA with left-sided weakness, dementia, hypertension, hyperlipidemia, COPD, obstructive sleep apnea and history of breast cancer status post chemo and radiation, depression and previous history of smoking who is currently living at [facility] Because of significant cognitive impairment patient unable to give much of a history. Per the EMS run sheet patient is complaining of chest in and pressure midsternum not radiating this morning. The staff given her on nitro sublingual and the pain subsided. EKG showed the heart rate of 110. Care patient's heart rate is around 140. Found to be in possible flutter/atrial tachycardia. Started on a Cardizem drip. Patient does feel tired. Can only answer simple questions. Currently denies any chest pain. Admitted with what appeared to be atrial tachycardia/atrial fibrillation with a rapid rate/atrial flutter. Started on a Cardizem drip. CHF exacerbation. On IV Lasix October 18: Laying in bed. Tired. Heart rate just above 100. Cardizem drip. Awaiting cardiology input. October 19: Atrial fibrillation remains uncontrolled. On by mouth amiodarone. Cardizem drip at 5 mg. Lopressor increased to 150 mg twice a day. Short of breath. IV Lasix Active Medications Albuterol/Ipratropium (Ipratropium-Albuterol 3 Ml Neb) 3 ml INHALATION RT-Q4H PRN PRN Reason: Shortness Of Breath Or Wheezing Last Admin: 10/18/21 19:47 Dose: 3 ml Documented by: Amiodarone HCl (Amiodarone 200 Mg Tab) 200 mg PO DAILY [facility] Last Admin: 10/19/21 08:13 Dose: 200 mg Documented by: Apixaban (Apixaban 5 Mg Tab) 5 mg PO BID@0800,1600 [facility]; Protocol Last Admin: 10/19/21 16:50 Dose: 5 mg Documented by: Atorvastatin Calcium (Atorvastatin 20 Mg Tab) 20 mg PO HS [facility] Last Admin: 10/18/21 21:09 Dose: Not Given Documented by: Bisacodyl (Bisacodyl 10 Mg Supp) 10 mg RECTAL DAILY PRN PRN Reason: Constipation Bupropion HCl (Bupropion 75 Mg Tab) 75 mg PO DAILY [facility] Last Admin: 10/19/21 08:13 Dose: 75 mg Documented by: Famotidine (Famotidine 20 Mg Tab) 20 mg PO DAILY [facility] Last Admin: 10/19/21 08:13 Dose: 20 mg Documented by: Fluticasone Propionate (Fluticasone 44 Mcg Inhaler) 1 puff INHALATION RT-BID [facility] Last Admin: 10/19/21 08:37 Dose: 1 puff Documented by: Furosemide (Furosemide 10 Mg/Ml 4 Ml Vial) 40 mg IV Q12H [facility] Last Admin: 10/19/21 06:32 Dose: 40 mg Documented by: Diltiazem HCl 125 mg/ Sodium (Chloride) 125 mls @ 5 mls/hr IV .Q24H [facility] Last Admin: 10/19/21 08:57 Dose: Not Given Documented by: Metoprolol Tartrate (Metoprolol Tartrate 50 Mg Tab) 150 mg PO BID [facility] Multivitamins (Multivitamins, Thera 1 Each Tab) 1 each PO DAILY [facility] Last Admin: 10/19/21 08:13 Dose: 1 each Documented by: Nitroglycerin (Nitroglycerin Sl Tabs 0.4 Mg Tab) 0.4 mg SUBLINGUAL Q5M PRN PRN Reason: Chest Pain Pyridoxine HCl (Pyridoxine 50 Mg Tab) 50 mg PO DAILY [facility] Last Admin: 10/19/21 08:13 Dose: 50 mg Documented by: Past medical history to include: CVA with left-sided weakness, dementia, hypertension, hyperlipidemia, COPD, obstructive sleep apnea, history of breast cancer history chemoradiation, depression, atrial flutter, Social history: At [facility]. Patient smoking about a pack a day for over 60 years. No alcohol Family history: 2 sisters had breast cancer. One sister had ovarian cancer Physical examination: VITAL SIGNS: 97.5, 117,'s 16, 136 and 97, 98% on 2 L GENERAL: laying in bed, awake, EYES: Pupils equal. Conjunctiva normal. HEENT: External appearance of nose and ears normal, oral cavity grossly normal. NECK: JVD not raised; masses not palpable. HEART: Heart sounds irregular no edema. LUNGS: Respiratory rate increased; basal crackles ABDOMEN: Soft, nontender, liver spleen not palpable, no masses palpable. PSYCH: Patient knows her name, does not know why she is a wart is a yearl. MUSCULOSKELETAL:No Clubbing/cyanosis;muscles-grossly intact, evidence of OA NEUROLOGICAL: Cranial nerves grossly intact; no facial asymmetry, chronic left- sided weakness Investigations: White count 9.2 hemoglobin 15.5 platelets 255 potassium 4.2 creatinine 1.03 EKG tracing personally reviewed by me-possible atrial tachycardia with a rate of 135 Chest x-ray film personally reviewed by me-iván schwartz. Venous prominence. Small pleural effusion Assessment and plan: - probable atrial tachycardia/atrial fibrillation with a rapid ventricular rate up to 135 on presentation., Still uncontrolled IV Cardizem drip. Lopressor increased to 150 mg twice a day.. -Acute congestive heart exacerbation with the contribution from uncontrolled A. fib: New diagnosis IV Lasix 40 mg every 12 - left hemiparesis from prior CVA -Essential hypertension Atenolol, -Hyperlipidemia Lipitor -Obstructive sleep apnea- uses BiPAP -COPD in a current smoker Follow clinically -Chronic gait dysfunction Uses walker -Depression On Wellbutrin XL -Chronic insomnia from medical conditions Melatonin. - severe cognitive impairment, likely from late onset Alzheimer's dementia Increase Lopressor to 150 mg twice a day. IV Lasix 40 mg every 12. Check BMP, BNP. 2-D echo
[2021-10-19] MEDS: ATORVASTATIN 20 MG TAB PO SCH (21:27)
[2021-10-20] MEDS: FUROSEMIDE 10 MG/ML 4 ML VIAL IV SCH ×2 (05:11→18:13)
[2021-10-20 07:40] LABS: Calcium 9.8 mg/dL (8.4-10.2); Potassium 3.3 mmol/L (3.5-5.1)
[2021-10-20] MEDS: FLUTICASONE 44 MCG INHALER INHALATION SCH ×2 (08:29→21:38)
[2021-10-20] MEDS: FAMOTIDINE 20 MG TAB PO SCH (10:16)
[2021-10-20] MEDS: APIXABAN 5 MG TAB PO SCH ×2 (10:16→18:13)
[2021-10-20] MEDS: MULTIVITAMINS, THERA 1 EACH TAB PO SCH (10:17)
[2021-10-20] MEDS: METOPROLOL TARTRATE 50 MG TAB PO SCH ×2 (10:17→21:46)
[2021-10-20] MEDS: buPROPion 75 MG TAB PO SCH (10:17)
[2021-10-20] MEDS: AMIODARONE 200 MG TAB PO SCH (10:17)
[2021-10-20] MEDS: PYRIDOXINE 50 MG TAB PO SCH (10:18)
[2021-10-20] MEDS: POTASSIUM CHLORIDE ER 20 MEQ TAB.ER PO SCH ×2 (12:53→18:13)
--- NOTE | 2021-10-20 14:17 | P.PN ---
Progress Note - Text Progress Note Date: 10/20/21 Chief Complaint: Chest pain History of presenting complaint This is a pleasant 80-year-old patient, Dr. Walter, with a known history of CVA with left-sided weakness, dementia, hypertension, hyperlipidemia, COPD, obstructive sleep apnea and history of breast cancer status post chemo and radiation, depression and previous history of smoking who is currently living at [facility] Because of significant cognitive impairment patient unable to give much of a history. Per the EMS run sheet patient is complaining of chest in and pressure midsternum not radiating this morning. The staff given her on nitro sublingual and the pain subsided. EKG showed the heart rate of 110. Care patient's heart rate is around 140. Found to be in possible flutter/atrial tachycardia. Started on a Cardizem drip. Patient does feel tired. Can only answer simple questions. Currently denies any chest pain. Admitted with what appeared to be atrial tachycardia/atrial fibrillation with a rapid rate/atrial flutter. Started on a Cardizem drip. CHF exacerbation. On IV Lasix October 18: Laying in bed. Tired. Heart rate just above 100. Cardizem drip. Awaiting cardiology input. October 19: Atrial fibrillation remains uncontrolled. On by mouth amiodarone. Cardizem drip at 5 mg. Lopressor increased to 150 mg twice a day. Short of breath. IV Lasix October 20: Atrial fibrillation better controlled. Patient of Cardizem drip. By mouth Lopressor, Cordarone. On IV Lasix. Breathing slowly improving. Active Medications Albuterol/Ipratropium (Ipratropium-Albuterol 3 Ml Neb) 3 ml INHALATION RT-Q4H PRN PRN Reason: Shortness Of Breath Or Wheezing Last Admin: 10/18/21 19:47 Dose: 3 ml Documented by: Amiodarone HCl (Amiodarone 200 Mg Tab) 200 mg PO DAILY [facility] Last Admin: 10/20/21 10:17 Dose: 200 mg Documented by: Apixaban (Apixaban 5 Mg Tab) 5 mg PO BID@0800,1600 [facility]; Protocol Last Admin: 10/20/21 10:16 Dose: 5 mg Documented by: Atorvastatin Calcium (Atorvastatin 20 Mg Tab) 20 mg PO HS [facility] Last Admin: 10/19/21 21:27 Dose: 20 mg Documented by: Bisacodyl (Bisacodyl 10 Mg Supp) 10 mg RECTAL DAILY PRN PRN Reason: Constipation Bupropion HCl (Bupropion 75 Mg Tab) 75 mg PO DAILY [facility] Last Admin: 10/20/21 10:17 Dose: 75 mg Documented by: Famotidine (Famotidine 20 Mg Tab) 20 mg PO DAILY [facility] Last Admin: 10/20/21 10:16 Dose: 20 mg Documented by: Fluticasone Propionate (Fluticasone 44 Mcg Inhaler) 1 puff INHALATION RT-BID [facility] Last Admin: 10/20/21 08:29 Dose: 1 puff Documented by: Furosemide (Furosemide 10 Mg/Ml 4 Ml Vial) 40 mg IV Q12H [facility] Last Admin: 10/20/21 05:11 Dose: 40 mg Documented by: Metoprolol Tartrate (Metoprolol Tartrate 50 Mg Tab) 150 mg PO BID [facility] Last Admin: 10/20/21 10:17 Dose: 150 mg Documented by: Multivitamins (Multivitamins, Thera 1 Each Tab) 1 each PO DAILY [facility] Last Admin: 10/20/21 10:17 Dose: 1 each Documented by: Nitroglycerin (Nitroglycerin Sl Tabs 0.4 Mg Tab) 0.4 mg SUBLINGUAL Q5M PRN PRN Reason: Chest Pain Pyridoxine HCl (Pyridoxine 50 Mg Tab) 50 mg PO DAILY [facility] Last Admin: 10/20/21 10:18 Dose: 50 mg Documented by: Past medical history to include: CVA with left-sided weakness, dementia, hypertension, hyperlipidemia, COPD, obstructive sleep apnea, history of breast cancer history chemoradiation, depression, atrial flutter, Social history: At [facility]. Patient smoking about a pack a day for over 60 years. No alcohol Family history: 2 sisters had breast cancer. One sister had ovarian cancer Physical examination: VITAL SIGNS: 97.6, 96, 18, 122/87, 96% on 2 L GENERAL: laying in bed, awake, EYES: Pupils equal. Conjunctiva normal. HEENT: External appearance of nose and ears normal, oral cavity grossly normal. NECK: JVD not raised; masses not palpable. HEART: Heart sounds irregular no edema. LUNGS: Respiratory rate increased; basal crackles ABDOMEN: Soft, nontender, liver spleen not palpable, no masses palpable. PSYCH: Patient knows her name, does not know why she is a wart is a yearl. MUSCULOSKELETAL:No Clubbing/cyanosis;muscles-grossly intact, evidence of OA NEUROLOGICAL: Cranial nerves grossly intact; no facial asymmetry, chronic left- sided weakness Investigations: White count 9.2 hemoglobin 15.5 platelets 255 potassium 4.2 creatinine 1.03 EKG tracing personally reviewed by me-possible atrial tachycardia with a rate of 135 Chest x-ray film personally reviewed by me-iván schwartz. Venous prominence. Small pleural effusion Assessment and plan: - /atrial fibrillation with a rapid ventricular rate up to 135 on presentation., Still uncontrolled IV Cardizem drip-discontinued. Lopressor 150 mg twice a day.. -Acute congestive heart exacerbation with the contribution from uncontrolled A. fib: Slow to respond IV Lasix 40 mg every 12 - left hemiparesis from prior CVA -Essential hypertension Atenolol, -Hyperlipidemia Lipitor -Obstructive sleep apnea- uses BiPAP -COPD in a current smoker Follow clinically -Chronic gait dysfunction Uses walker -Depression On Wellbutrin XL -Chronic insomnia from medical conditions Melatonin. - severe cognitive impairment, likely from late onset Alzheimer's dementia Lopressor 150 mg twice a day. IV Lasix 40 mg every 12. Continue current medication treatment plan.
--- NOTE | 2021-10-20 14:58 | P.PN ---
Subjective Progress Note Date: 10/20/21 HISTORY OF PRESENT ILLNESS: Patient is pleasant 80-year-old female with history of paroxysmal atrial fibrillation, hypertension, hyperlipidemia, previous cholecystectomy, asymptomat ic bradycardia in the past, dementia stroke with left-sided weakness, obstructive sleep apnea, breast cancer status post chemo and radiation who presents from [facility]CF secondary to increasing shortness breath per patient. There is some documentation of possible chest pain and pressure however patient denies any. Patient however poor historian. She was found to be in A. fib with RVR with heart rates in the 110 to 140s and was started on a Cardizem drip with heart rates improved into the 70s to 80s. She was placed on her home medications which currently includes amiodarone 200 mg twice a day. Patient denies any chest pain or pressure or lightheadedness. Blood work shows white blood cell count 9.2, hemoglobin 15.5, BUN 22, creatinine 1, total bilirubin 1.6, troponin normal 3, proBNP 4800. Chest x-ray shows new small bilateral pleural effusions and mild interstitial edema with suspected C HF. She does have decreased breath sounds at the bases as well as diffuse wheeze and mild crackles. Last echo from 02/24/2021 showed EF 50-55%, moderate LVH, mild tricuspid regurgitation. 10/19 Patient seen and examined. Patient still with A. fib with heart rates 90s up to 120s to 130s. Denies any chest pain or pressure or shortness breath. 10/20/2021 Patient examined this morning at the bedside. She is pleasantly confused. She denies chest pain or pressure. Denies SOB. She is in afib with heart rates around 90-100. she remains on IV Lasix. creatinine 1.13. Potassium 3.3. PHYSICAL EXAM: VITAL SIGNS: Reviewed. GENERAL: Well-developed in no acute distress. NECK: Supple. No JVD or thyromegaly LUNGS: Respirations even and unlabored. Lungs diminished to auscultation bilaterally. HEART: Irregular rate and rhythm. S1 and S2 heard. EXTREMITIES: Normal range of motion. No clubbing or cyanosis. Peripheral pulses intact. No lower extremity edema ASSESSMENT: 1. Paroxysmal atrial fibrillation with RVR 2. Acute on chronic diastolic heart failure 3. Acute on chronic respiratory failure likely multifactorial secondary to heart failure plus or minus pulmonary source with wheeze 4. History of stroke, dementia 5. Unclear history of possible chest pain however currently denies any, troponins normal PLAN: Continue current cardiac medications Continue IV lasix for another 24 hours Monitor kidney function Further recommendations pending patient course Nurse practitioner note has been reviewed by physician. Signing provider agrees with the documented findings, assessment, and plan of care. Objective - Vital Signs Vital signs: Vital Signs Temp 97.6 F 10/20/21 12:50 Pulse 96 10/20/21 12:50 Resp 18 10/20/21 12:50 BP 122/87 10/20/21 12:50 Pulse Ox 96 10/20/21 12:50 Intake & Output 10/19/21 10/20/21 10/20/21 18:59 06:59 18:59 Weight 67.5 kg 67.5 kg Other: Voiding Method Diaper Diaper Diaper # Voids 2 1 - Labs CBC & Chem 7: 10/17/21 09:18 10/20/21 06:10 Labs: Abnormal Lab Results - Last 24 Hours (Table) 10/20/21 Range/Units 06:10 Potassium 3.3 L (3.5-5.1) mmol/L Creatinine 1.13 H (0.52-1.04) mg/dL
[2021-10-20] MEDS: CEFDINIR ORAL SUSP 1,500 MG/60 ML BOTTLE PO SCH (21:46)
[2021-10-20] MEDS: ATORVASTATIN 20 MG TAB PO SCH (21:46)
[2021-10-21] MEDS: FUROSEMIDE 10 MG/ML 4 ML VIAL IV SCH (05:48)
[2021-10-21 08:05] LABS: Calcium 9.7 mg/dL (8.4-10.2); Potassium 3.2 mmol/L (3.5-5.1)
[2021-10-21] MEDS: FLUTICASONE 44 MCG INHALER INHALATION SCH ×2 (08:44→20:10)
[2021-10-21] MEDS: FAMOTIDINE 20 MG TAB PO SCH (09:13)
[2021-10-21] MEDS: buPROPion 75 MG TAB PO SCH (09:13)
[2021-10-21] MEDS: METOPROLOL TARTRATE 50 MG TAB PO SCH ×2 (09:13→21:31)
[2021-10-21] MEDS: APIXABAN 5 MG TAB PO SCH ×2 (09:13→16:21)
[2021-10-21] MEDS: AMIODARONE 200 MG TAB PO SCH (09:13)
[2021-10-21] MEDS: CEFDINIR ORAL SUSP 1,500 MG/60 ML BOTTLE PO SCH ×2 (09:13→21:32)
[2021-10-21] MEDS: PYRIDOXINE 50 MG TAB PO SCH (09:13)
[2021-10-21] MEDS: MULTIVITAMINS, THERA 1 EACH TAB PO SCH (09:13)
--- NOTE | 2021-10-21 10:48 | P.PN ---
Subjective Progress Note Date: 10/21/21 HISTORY OF PRESENT ILLNESS: Patient is pleasant 80-year-old female with history of paroxysmal atrial fibrillation, hypertension, hyperlipidemia, previous cholecystectomy, asymptomat ic bradycardia in the past, dementia stroke with left-sided weakness, obstructive sleep apnea, breast cancer status post chemo and radiation who presents from ECF secondary to increasing shortness breath per patient. There is some documentation of possible chest pain and pressure however patient denies any. Patient however poor historian. She was found to be in A. fib with RVR with heart rates in the 110 to 140s and was started on a Cardizem drip with heart rates improved into the 70s to 80s. She was placed on her home medications which currently includes amiodarone 200 mg twice a day. Patient denies any chest pain or pressure or lightheadedness. Blood work shows white blood cell count 9.2, hemoglobin 15.5, BUN 22, creatinine 1, total bilirubin 1.6, troponin normal 3, proBNP 4800. Chest x-ray shows new small bilateral pleural effusions and mild interstitial edema with suspected C HF. She does have decreased breath sounds at the bases as well as diffuse wheeze and mild crackles. Last echo from 02/24/2021 showed EF 50-55%, moderate LVH, mild tricuspid regurgitation. 10/19 Patient seen and examined. Patient still with A. fib with heart rates 90s up to 120s to 130s. Denies any chest pain or pressure or shortness breath. 10/20/2021 Patient examined this morning at the bedside. She is pleasantly confused. She denies chest pain or pressure. Denies SOB. She is in afib with heart rates around 90-100. she remains on IV Lasix. creatinine 1.13. Potassium 3.3. 10/21/2021 Patient examined this morning at the bedside. She denies chest pain or pressure. Denies shortness of breath. She remains on IV Lasix. Echocardiogram completed revealing ejection fraction 35-40%, mild MR, and mild TR. telemetry reveals atrial fibrillation with a heart rate around 100-110. PHYSICAL EXAM: VITAL SIGNS: Reviewed. GENERAL: Well-developed in no acute distress. NECK: Supple. No JVD or thyromegaly LUNGS: Respirations even and unlabored. Lungs diminished to auscultation bilaterally. HEART: Irregular rate and rhythm. S1 and S2 heard. EXTREMITIES: Normal range of motion. No clubbing or cyanosis. Peripheral pulses intact. No lower extremity edema ASSESSMENT: 1. Paroxysmal atrial fibrillation with RVR 2. Acute on chronic systolic heart failure, EF 35% 3. Acute on chronic respiratory failure likely multifactorial secondary to heart failure plus or minus pulmonary source with wheeze 4. History of stroke, dementia 5. Unclear history of possible chest pain however currently denies any, troponins normal 6. Cardiomyopathy, etiology unclear PLAN: Continue current cardiac medications Discontinue IV lasix. Begin oral lasix 40mg BID. Monitor kidney function Continue with current rate control medications. Patient has a history of bradycardia and is already on a significant dose of metoprolol. Continue with same medications and this can be readdressed on an outpatient basis with Dr. Gold Patient may be discharged today from a cardiac standpoint Nurse practitioner note has been reviewed by physician. Signing provider agrees with the documented findings, assessment, and plan of care. Objective - Vital Signs Vital signs: Vital Signs Temp 97.1 F L 10/21/21 07:40 Pulse 95 10/21/21 07:40 Resp 22 10/21/21 07:40 BP 119/77 10/21/21 07:40 Pulse Ox 93 L 10/21/21 07:40 Intake & Output 10/20/21 10/21/21 10/21/21 18:59 06:59 18:59 Intake Total 240 240 Output Total 100 Balance 240 -100 240 Weight 67.5 kg Intake: Oral 240 240 Output: Urine 100 Other: Voiding Method Diaper Diaper Diaper - Labs CBC & Chem 7: 10/17/21 09:18 10/21/21 07:21 Labs: Abnormal Lab Results - Last 24 Hours (Table) 10/21/21 Range/Units 07:21 Potassium 3.2 L (3.5-5.1) mmol/L BUN 21 H (7-17) mg/dL Creatinine 1.28 H (0.52-1.04) mg/dL Glucose 118 H (74-99) mg/dL
--- NOTE | 2021-10-21 12:25 | ECHOF ---
Referral Reason:CHF MEASUREMENTS -------- HEIGHT: 165.1 cm WEIGHT: 67.1 kg BP: 127/82 RVIDd: 2.7 cm (< 3.3) IVSd: 0.9 cm (0.6 - 1.1) LVIDd: 4.5 cm (3.9 - 5.3) LVPWd: 1.0 cm (0.6 - 1.1) IVSs: 1.5 cm LVIDs: 2.9 cm LVPWs: 1.3 cm LA Diam: 3.9 cm (2.7 - 3.8) LAESV Index (A-L): 29.41 ml/m Ao Diam: 3.3 cm (2.0 - 3.7) AV Cusp: 1.4 cm (1.5 - 2.6) MV EXCURSION: 12.148 mm (> 18.000) MV EF SLOPE: 74 mm/s (70 - 150) EPSS: 1.9 cm RAP: 5.00 mmHg RVSP: 27.36 mmHg FINDINGS -------- Atrial fibrillation. This was a technically difficult study with suboptimal parasternal views. The left ventricular size is normal. Left ventricular wall thickness is normal. Overall left vent ricular systolic function is moderately impaired with, an EF between 35 - 40 %. The right ventricle is normal in size. LA is midly dilated 29-33ml/m2. The right atrium is normal in size. Lipomatous Hypertrophy of the atrial septum is present There is mild aortic valve sclerosis. There is mild aortic regurgitation. The mitral valve leaflets are mildly thickened. Mild mitral annular calcification present. Mild m itral regurgitation is present. Mild tricuspid regurgitation present. Right ventricular systolic pressure is normal at < 35 mmHg. The pulmonic valve was not well visualized. The aortic root size is normal. Normal inferior vena cava with normal inspiratory collapse consistent with estimated right atrial pre ssure of 5 mmHg. There is no pericardial effusion. CONCLUSIONS -------- 1. The left ventricular size is normal. 2. Left ventricular wall thickness is normal. 3. Overall left ventricular systolic function is moderately impaired with, an EF between 35 - 40 %. 4. LA is midly dilated 29-33ml/m2. 5. Lipomatous Hypertrophy of the atrial septum is present 6. There is mild aortic valve sclerosis. 7. There is mild aortic regurgitation. 8. The mitral valve leaflets are mildly thickened. 9. Mild mitral annular calcification present. 10. Mild mitral regurgitation is present. 11. Mild tricuspid regurgitation present. 12. There is no pericardial effusion. [employer]: Charlotte Stewart RDCS
[2021-10-21] MEDS ORDERED: POTASSIUM CHLORIDE ER 20 MEQ TAB.ER PO STA (13:57)
--- NOTE | 2021-10-21 15:09 | P.PN ---
Progress Note - Text Progress Note Date: 10/21/21 Chief Complaint: Chest pain History of presenting complaint This is a pleasant 80-year-old patient, Dr. Walter, with a known history of CVA with left-sided weakness, dementia, hypertension, hyperlipidemia, COPD, obstructive sleep apnea and history of breast cancer status post chemo and radiation, depression and previous history of smoking who is currently living at [facility] Because of significant cognitive impairment patient unable to give much of a history. Per the EMS run sheet patient is complaining of chest in and pressure midsternum not radiating this morning. The staff given her on nitro sublingual and the pain subsided. EKG showed the heart rate of 110. Care patient's heart rate is around 140. Found to be in possible flutter/atrial tachycardia. Started on a Cardizem drip. Patient does feel tired. Can only answer simple questions. Currently denies any chest pain. Admitted with what appeared to be atrial tachycardia/atrial fibrillation with a rapid rate/atrial flutter. Started on a Cardizem drip. CHF exacerbation. On IV Lasix October 18: Laying in bed. Tired. Heart rate just above 100. Cardizem drip. Awaiting cardiology input. October 19: Atrial fibrillation remains uncontrolled. On by mouth amiodarone. Cardizem drip at 5 mg. Lopressor increased to 150 mg twice a day. Short of breath. IV Lasix October 20: Atrial fibrillation better controlled. Patient of Cardizem drip. By mouth Lopressor, Cordarone. On IV Lasix. Breathing slowly improving. October 21: Remains in atrial fibrillation heart rate around 110. Eating fair. Breathing better. On by mouth Lasix. Active Medications Albuterol/Ipratropium (Ipratropium-Albuterol 3 Ml Neb) 3 ml INHALATION RT-Q4H PRN PRN Reason: Shortness Of Breath Or Wheezing Last Admin: 10/18/21 19:47 Dose: 3 ml Documented by: Amiodarone HCl (Amiodarone 200 Mg Tab) 200 mg PO DAILY [facility] Last Admin: 10/21/21 09:13 Dose: 200 mg Documented by: Apixaban (Apixaban 5 Mg Tab) 5 mg PO BID@0800,1600 [facility]; Protocol Last Admin: 10/21/21 09:13 Dose: 5 mg Documented by: Atorvastatin Calcium (Atorvastatin 20 Mg Tab) 20 mg PO HS [facility] Last Admin: 10/20/21 21:46 Dose: 20 mg Documented by: Bisacodyl (Bisacodyl 10 Mg Supp) 10 mg RECTAL DAILY PRN PRN Reason: Constipation Bupropion HCl (Bupropion 75 Mg Tab) 75 mg PO DAILY [facility] Last Admin: 10/21/21 09:13 Dose: 75 mg Documented by: Cefdinir (Cefdinir Oral Susp 1,500 Mg/60 Ml Bottle) 300 mg PO Q12HR [facility]; Protocol Last Admin: 10/21/21 09:13 Dose: 300 mg Documented by: Famotidine (Famotidine 20 Mg Tab) 20 mg PO DAILY [facility] Last Admin: 10/21/21 09:13 Dose: 20 mg Documented by: Fluticasone Propionate (Fluticasone 44 Mcg Inhaler) 1 puff INHALATION RT-BID [facility] Last Admin: 10/21/21 08:44 Dose: 1 puff Documented by: Furosemide (Furosemide 40 Mg Tab) 40 mg PO BID@0900,1600 [facility] Metoprolol Tartrate (Metoprolol Tartrate 50 Mg Tab) 150 mg PO BID [facility] Last Admin: 10/21/21 09:13 Dose: 150 mg Documented by: Multivitamins (Multivitamins, Thera 1 Each Tab) 1 each PO DAILY [facility] Last Admin: 10/21/21 09:13 Dose: 1 each Documented by: Nitroglycerin (Nitroglycerin Sl Tabs 0.4 Mg Tab) 0.4 mg SUBLINGUAL Q5M PRN PRN Reason: Chest Pain Pyridoxine HCl (Pyridoxine 50 Mg Tab) 50 mg PO DAILY [facility] Last Admin: 10/21/21 09:13 Dose: 50 mg Documented by: Past medical history to include: CVA with left-sided weakness, dementia, hypertension, hyperlipidemia, COPD, obstructive sleep apnea, history of breast cancer history chemoradiation, depression, atrial flutter, Social history: At [facility]. Patient smoking about a pack a day for over 60 years. No alcohol Family history: 2 sisters had breast cancer. One sister had ovarian cancer Physical examination: VITAL SIGNS: 97.7, 74, 22, 119/88, 93% on 3 L GENERAL: Propped up in bed, awake, EYES: Pupils equal. Conjunctiva normal. HEENT: External appearance of nose and ears normal, oral cavity grossly normal. NECK: JVD not raised; masses not palpable. HEART: Heart sounds irregular no edema. LUNGS: Respiratory rate increased; basal crackles ABDOMEN: Soft, nontender, liver spleen not palpable, no masses palpable. PSYCH: Patient knows her name, does not know why she is a wart is a yearl. MUSCULOSKELETAL:No Clubbing/cyanosis;muscles-grossly intact, evidence of OA NEUROLOGICAL: Cranial nerves grossly intact; no facial asymmetry, chronic left- sided weakness Investigations: October 21: Potassium 3.2 creatinine 1.28 White count 9.2 hemoglobin 15.5 platelets 255 potassium 4.2 creatinine 1.03 EKG tracing personally reviewed by me-possible atrial tachycardia with a rate of 135 Chest x-ray film personally reviewed by me-iván schwartz. Venous prominence. Small pleural effusion Assessment and plan: - Persistent atrial fibrillation with a rapid ventricular rate up to 135 on presentation., Heart rate now down 100 210 IV Cardizem drip-discontinued. Lopressor 150 mg twice a day.. Cordarone 200 mg daily. -Acute congestive heart exacerbation with the contribution from uncontrolled A. fib: Better IV Lasix 40 mg every 12. Lasix changed over to by mouth - left hemiparesis from prior CVA -Essential hypertension Lopressor 1 mg twice a day -Hyperlipidemia Lipitor -Obstructive sleep apnea- uses BiPAP -COPD in a current smoker Follow clinically -Chronic gait dysfunction Uses walker -Depression On Wellbutrin XL -Chronic insomnia from medical conditions Melatonin. - severe cognitive impairment, likely from late onset Alzheimer's dementia Lopressor 150 mg twice a day. Changed over to by mouth Lasix. Repeat BMP in the morning. Chest x-ray ordered. Probably DC to ECF tomorrow.
[2021-10-21] MEDS: FUROSEMIDE 40 MG TAB PO SCH (16:21)
--- NOTE | 2021-10-21 17:48 | XR ---
EXAMINATION TYPE: XR chest 2V DATE OF EXAM: 10/21/2021 5:29 PM COMPARISON:Chest radiographs from 10/17/2021 TECHNIQUE: XR chest 2V Frontal and lateral views of the chest. CLINICAL INDICATION:Female, 80 years old with history of chf-f/u; FINDINGS: Lungs/Pleura: There is no evidence of focal consolidation, or pneumothorax. Remains blunting of left costophrenic angle. Pulmonary vascularity: . Improved pulmonary vascular congestion. Heart/mediastinum: Cardiomediastinal silhouette is enlarged and stable. Musculoskeletal: No acute osseous pathology. IMPRESSION: Improved pulmonary vascular congestion on today's exam. There remains a left small pleural effusion. Similar cardiomegaly.
[2021-10-21] MEDS: ATORVASTATIN 20 MG TAB PO SCH (21:31)
[2021-10-21] MEDS: DILTIAZEM 125 MG in SODIUM CHLORIDE 0.9% 100 ML IV SCH (22:41)
[2021-10-22] MEDS: FLUTICASONE 44 MCG INHALER INHALATION SCH ×2 (08:49→19:11)
[2021-10-22] MEDS: APIXABAN 5 MG TAB PO SCH ×2 (09:00→16:47)
[2021-10-22] MEDS: CEFDINIR ORAL SUSP 1,500 MG/60 ML BOTTLE PO SCH (09:01)
[2021-10-22] MEDS: AMIODARONE 200 MG TAB PO SCH (09:01)
[2021-10-22] MEDS: buPROPion 75 MG TAB PO SCH (09:01)
[2021-10-22] MEDS: FUROSEMIDE 40 MG TAB PO SCH ×2 (09:02→16:47)
[2021-10-22] MEDS: FAMOTIDINE 20 MG TAB PO SCH (09:02)
[2021-10-22] MEDS: METOPROLOL TARTRATE 50 MG TAB PO SCH ×2 (09:06→19:39)
[2021-10-22] MEDS: MULTIVITAMINS, THERA 1 EACH TAB PO SCH (09:07)
[2021-10-22 09:12] LABS: Calcium 9.7 mg/dL (8.4-10.2); Potassium 3.7 mmol/L (3.5-5.1)
[2021-10-22] MEDS: PYRIDOXINE 50 MG TAB PO SCH (09:14)
--- NOTE | 2021-10-22 09:29 | P.PN ---
Subjective Progress Note Date: 10/22/21 HISTORY OF PRESENT ILLNESS: Patient is pleasant 80-year-old female with history of paroxysmal atrial fibrillation, hypertension, hyperlipidemia, previous cholecystectomy, asymptomat ic bradycardia in the past, dementia stroke with left-sided weakness, obstructive sleep apnea, breast cancer status post chemo and radiation who presents from ECF secondary to increasing shortness breath per patient. There is some documentation of possible chest pain and pressure however patient denies any. Patient however poor historian. She was found to be in A. fib with RVR with heart rates in the 110 to 140s and was started on a Cardizem drip with heart rates improved into the 70s to 80s. She was placed on her home medications which currently includes amiodarone 200 mg twice a day. Patient denies any chest pain or pressure or lightheadedness. Blood work shows white blood cell count 9.2, hemoglobin 15.5, BUN 22, creatinine 1, total bilirubin 1.6, troponin normal 3, proBNP 4800. Chest x-ray shows new small bilateral pleural effusions and mild interstitial edema with suspected C HF. She does have decreased breath sounds at the bases as well as diffuse wheeze and mild crackles. Last echo from 02/24/2021 showed EF 50-55%, moderate LVH, mild tricuspid regurgitation. 10/19 Patient seen and examined. Patient still with A. fib with heart rates 90s up to 120s to 130s. Denies any chest pain or pressure or shortness breath. 10/20/2021 Patient examined this morning at the bedside. She is pleasantly confused. She denies chest pain or pressure. Denies SOB. She is in afib with heart rates around 90-100. she remains on IV Lasix. creatinine 1.13. Potassium 3.3. 10/21/2021 Patient examined this morning at the bedside. She denies chest pain or pressure. Denies shortness of breath. She remains on IV Lasix. Echocardiogram completed revealing ejection fraction 35-40%, mild MR, and mild TR. telemetry reveals atrial fibrillation with a heart rate around 100-110. 10/22/2021 Patient examined this morning. She is sitting up in the chair. She denies chest pain or pressure. She denies SOB. Telemetry reveals afib with heart rate around 100-100. Blood pressure stable. Creatinine increased to 1.63 today. PHYSICAL EXAM: VITAL SIGNS: Reviewed. GENERAL: Well-developed in no acute distress. NECK: Supple. No JVD or thyromegaly LUNGS: Respirations even and unlabored. Lungs diminished to auscultation bilaterally. HEART: Irregular rate and rhythm. S1 and S2 heard. EXTREMITIES: Normal range of motion. No clubbing or cyanosis. Peripheral pulses intact. No lower extremity edema ASSESSMENT: 1. Paroxysmal atrial fibrillation with RVR 2. Acute on chronic systolic heart failure, EF 35% 3. Acute on chronic respiratory failure likely multifactorial 4. History of stroke 5. History of dementia 6. Cardiomyopathy, etiology unclear 7. Acute kidney injury PLAN: Continue current cardiac medications Monitor kidney function Continue with current rate control medications. Patient has a history of bra dycardia and is already on a significant dose of metoprolol. Continue with same medications and this can be readdressed on an outpatient basis with Dr. Gold Patient may be discharged today from a cardiac standpoint Nurse practitioner note has been reviewed by physician. Signing provider agrees with the documented findings, assessment, and plan of care. Objective - Vital Signs Vital signs: Vital Signs Temp 96.9 F L 10/22/21 07:41 Pulse 110 H 10/22/21 07:41 Resp 20 10/22/21 07:41 BP 121/84 10/22/21 07:41 Pulse Ox 98 10/22/21 07:41 Intake & Output 10/21/21 10/22/21 10/22/21 18:59 06:59 18:59 Intake Total 480 Output Total 400 Balance 480 -400 Weight 67.4 kg 65 kg Intake: Oral 480 Output: Urine 400 Other: Voiding Method Diaper Diaper External Catheter External Catheter # Bowel Movements 0 - Labs CBC & Chem 7: 10/17/21 09:18 10/22/21 08:17 Labs: Abnormal Lab Results - Last 24 Hours (Table) 10/22/21 Range/Units 08:17 Carbon Dioxide 33 H (22-30) mmol/L BUN 26 H (7-17) mg/dL Creatinine 1.63 H (0.52-1.04) mg/dL Glucose 114 H (74-99) mg/dL
--- NOTE | 2021-10-22 14:23 | P.DS ---
Providers Date of admission: 10/17/21 12:16 Expected date of discharge: 10/22/21 Attending physician: Junaid Rojas Consults: 10/17/21 12:16 Consult Physician Urgent Consulting Provider: [facility] Consult Reason/Comments: A flutter with rapid ventricular response Do you want consulting provider notified?: Yes Primary care physician: Viktor [facility] Course: Chief Complaint: Chest pain History of presenting complaint This is a pleasant 80-year-old patient, Dr. Walter, with a known history of CVA with left-sided weakness, dementia, hypertension, hyperlipidemia, COPD, obstructive sleep apnea and history of breast cancer status post chemo and radiation, depression and previous history of smoking who is currently living at [facility] Because of significant cognitive impairment patient unable to give much of a history. Per the EMS run sheet patient is complaining of chest in and pressure midsternum not radiating this morning. The staff given her on nitro sublingual and the pain subsided. EKG showed the heart rate of 110. Care patient's heart rate is around 140. Found to be in possible flutter/atrial tachycardia. Started on a Cardizem drip. Patient does feel tired. Can only answer simple questions. Currently denies any chest pain. Admitted with what appeared to be atrial tachycardia/atrial fibrillation with a rapid rate/atrial flutter. Started on a Cardizem drip. CHF exacerbation. On IV Lasix October 18: Laying in bed. Tired. Heart rate just above 100. Cardizem drip. Awaiting cardiology input. October 19: Atrial fibrillation remains uncontrolled. On by mouth amiodarone. Cardizem drip at 5 mg. Lopressor increased to 150 mg twice a day. Short of breath. IV Lasix October 20: Atrial fibrillation better controlled. Patient of Cardizem drip. By mouth Lopressor, Cordarone. On IV Lasix. Breathing slowly improving. October 21: Remains in atrial fibrillation heart rate around 110. Eating fair. Breathing better. On by mouth Lasix. October 22: Heart rate around 110. comfortable. Cleared by cardiology. Creatinine has gone up. We'll change Lasix to 40 mg every other day. Care was discussed with daughter the bedside. Questions answered. Cor status is DO NOT RESUSCITATE. Discussion and discharge planning more than 35 minutes Past medical history to include: CVA with left-sided weakness, dementia, hypertension, hyperlipidemia, COPD, obstructive sleep apnea, history of breast cancer history chemoradiation, depression, atrial flutter, Social history: At [facility]. Patient smoking about a pack a day for over 60 years. No alcohol Family history: 2 sisters had breast cancer. One sister had ovarian cancer Physical examination: VITAL SIGNS: 97.5, 96, 24, 126.88, 96% on room air normal GENERAL: Propped up in chair, awake, EYES: Pupils equal. Conjunctiva normal. HEENT: External appearance of nose and ears normal, oral cavity grossly normal. NECK: JVD not raised; masses not palpable. HEART: Heart sounds irregular no edema. LUNGS: Respiratory rate increased; basal crackles ABDOMEN: Soft, nontender, liver spleen not palpable, no masses palpable. PSYCH: Patient knows her name, does not know why she is a wart is a yearl. MUSCULOSKELETAL:No Clubbing/cyanosis;muscles-grossly intact, evidence of OA NEUROLOGICAL: Cranial nerves grossly intact; no facial asymmetry, chronic left- sided weakness Investigations: October 22: Potassium 3.7 creatinine 1.63 October 21: Potassium 3.2 creatinine 1.28 White count 9.2 hemoglobin 15.5 platelets 255 potassium 4.2 creatinine 1.03 EKG tracing personally reviewed by me-possible atrial tachycardia with a rate of 135 Chest x-ray film personally reviewed by me-iván schwartz. Venous prominence. Small pleural effusion Assessment and plan: - Persistent atrial fibrillation with a rapid ventricular rate up to 135 on presentation., Heart rate now down 100 IV Cardizem drip-discontinued. Lopressor 150 mg twice a day.. Cordarone 200 mg daily. -Acute congestive heart exacerbation with the contribution from uncontrolled A. fib: Better IV Lasix 40 mg every 12. Lasix changed 40 mg by mouth alternate day - left hemiparesis from prior CVA -Essential hypertension Lopressor 150 mg twice a day -Hyperlipidemia Lipitor -Obstructive sleep apnea- uses BiPAP -COPD in a current smoker Follow clinically -Chronic gait dysfunction Uses walker -Depression On Wellbutrin XL -Chronic insomnia from medical conditions Melatonin. - severe cognitive impairment, likely from late onset Alzheimer's dementia -DO NOT RESUSCITATE Disposition: [facility] Plan - Discharge Summary Discharge Rx Participant: No New Discharge Prescriptions: New Aspirin 81 mg PO DAILY #90 tab Clopidogrel Bisulfate [Plavix] 75 mg PO DAILY #90 tab Metoprolol Tartrate [Lopressor] 150 mg PO BID #60 tab Furosemide [Lasix] 40 mg PO Q48H #30 tab Continue Multivitamins, Thera [Multivitamin (formulary)] 1 tab PO DAILY Atenolol [Tenormin] 50 mg PO DAILY@0800,1600 Glucosamine HCl/Chondroitin Haines [Glucosamine-Chondroitin Cap] 1 cap PO HS Fluticasone Propionate [Flovent Diskus] 1 puff INHALATION RT-BID Pyridoxine [Vitamin B-6] 50 mg PO DAILY #30 tab Amiodarone [Cordarone] 200 mg PO BID buPROPion [Wellbutrin] 75 mg PO DAILY Healthshake 1 dose PO TID-W/MEALS Atorvastatin [Lipitor] 20 mg PO HS Melatonin 3 mg PO HS Famotidine [Pepcid] 20 mg PO DAILY Apixaban [Eliquis] 2.5 mg PO BID@0800,1600 bisacodyL [Dulcolax] 10 mg RECTAL DAILY PRN PRN Reason: Constipation Na Phos,M-B/Na Phos,Di-Ba [Fleet Adult] 133 ml RECTAL DAILY PRN PRN Reason: Constipation Cefuroxime [Ceftin] 250 mg PO BID Magnesium Hydroxide [Milk of Magnesia] 2,400 mg PO DAILY PRN PRN Reason: Constipation Discontinued atenoloL [Tenormin] 25 mg PO DAILY@0800 Discharge Medication List Multivitamins, Thera [Multivitamin (formulary)] 1 tab PO DAILY 02/12/20 [History] Atorvastatin [Lipitor] 20 mg PO HS 02/23/21 [History] Apixaban [Eliquis] 2.5 mg PO BID@0800,1600 03/01/21 [History] Atenolol [Tenormin] 50 mg PO DAILY@0800,1600 03/01/21 [History] Famotidine [Pepcid] 20 mg PO DAILY 03/01/21 [History] Fluticasone Propionate [Flovent Diskus] 1 puff INHALATION RT-BID 03/01/21 [History] Glucosamine HCl/Chondroitin Haines [Glucosamine-Chondroitin Cap] 1 cap PO HS 03/01/21 [History] Melatonin 3 mg PO HS 03/01/21 [History] Pyridoxine [Vitamin B-6] 50 mg PO DAILY #30 tab 03/06/21 [Rx] Amiodarone [Cordarone] 200 mg PO BID 10/17/21 [History] Cefuroxime [Ceftin] 250 mg PO BID 10/17/21 [History] Healthshake 1 dose PO TID-W/MEALS 10/17/21 [History] Magnesium Hydroxide [Milk of Magnesia] 2,400 mg PO DAILY PRN 10/17/21 [History] Na Phos,M-B/Na Phos,Di-Ba [Fleet Adult] 133 ml RECTAL DAILY PRN 10/17/21 [History] bisacodyL [Dulcolax] 10 mg RECTAL DAILY PRN 10/17/21 [History] buPROPion [Wellbutrin] 75 mg PO DAILY 10/17/21 [History] Aspirin 81 mg PO DAILY #90 tab 10/18/21 [Rx] Clopidogrel Bisulfate [Plavix] 75 mg PO DAILY #90 tab 10/18/21 [Rx] Furosemide [Lasix] 40 mg PO Q48H #30 tab 10/22/21 [Rx] Metoprolol Tartrate [Lopressor] 150 mg PO BID #60 tab 10/22/21 [Rx] Follow up Appointment(s)/Referral(s): cardiology, [Other] - 1 Week Viktor Walter DO [Primary Care Provider] - 1-2 days
[2021-10-22] MEDS: ATORVASTATIN 20 MG TAB PO SCH (19:39)
[2021-10-23 04:22] VITALS: TEMP 97.6
[2021-10-23] MEDS: FLUTICASONE 44 MCG INHALER INHALATION SCH (08:12)
[2021-10-23] MEDS: FAMOTIDINE 20 MG TAB PO SCH (08:26)
[2021-10-23] MEDS: METOPROLOL TARTRATE 50 MG TAB PO SCH (08:26)
[2021-10-23] MEDS: AMIODARONE 200 MG TAB PO SCH (08:26)
[2021-10-23] MEDS: MULTIVITAMINS, THERA 1 EACH TAB PO SCH (08:26)
[2021-10-23] MEDS: APIXABAN 5 MG TAB PO SCH (08:26)
[2021-10-23] MEDS: FUROSEMIDE 40 MG TAB PO SCH (08:26)
[2021-10-23] MEDS: PYRIDOXINE 50 MG TAB PO SCH (08:27)
[2021-10-23] MEDS: buPROPion 75 MG TAB PO SCH (08:28)
[2021-10-23 08:34] VITALS: RESP 16
[2021-10-23] MEDS ORDERED: CEFDINIR ORAL SUSP 1,500 MG/60 ML BOTTLE PO SCH (09:00)
[2021-10-23 11:15] VITALS: BMI 24.5
[2021-10-23 11:40] LABS: Calcium 9.8 mg/dL (8.4-10.2)
--- NOTE | 2021-10-23 11:51 | P.PN ---
Subjective Progress Note Date: 10/23/21 HISTORY OF PRESENT ILLNESS: Patient is pleasant 80-year-old female with history of paroxysmal atrial fibrillation, hypertension, hyperlipidemia, previous cholecystectomy, asymptomat ic bradycardia in the past, dementia stroke with left-sided weakness, obstructive sleep apnea, breast cancer status post chemo and radiation who presents from ECF secondary to increasing shortness breath per patient. There is some documentation of possible chest pain and pressure however patient denies any. Patient however poor historian. She was found to be in A. fib with RVR with heart rates in the 110 to 140s and was started on a Cardizem drip with heart rates improved into the 70s to 80s. She was placed on her home medications which currently includes amiodarone 200 mg twice a day. Patient denies any chest pain or pressure or lightheadedness. Blood work shows white blood cell count 9.2, hemoglobin 15.5, BUN 22, creatinine 1, total bilirubin 1.6, troponin normal 3, proBNP 4800. Chest x-ray shows new small bilateral pleural effusions and mild interstitial edema with suspected C HF. She does have decreased breath sounds at the bases as well as diffuse wheeze and mild crackles. Last echo from 02/24/2021 showed EF 50-55%, moderate LVH, mild tricuspid regurgitation. 10/19 Patient seen and examined. Patient still with A. fib with heart rates 90s up to 120s to 130s. Denies any chest pain or pressure or shortness breath. 10/20/2021 Patient examined this morning at the bedside. She is pleasantly confused. She denies chest pain or pressure. Denies SOB. She is in afib with heart rates around 90-100. she remains on IV Lasix. creatinine 1.13. Potassium 3.3. 10/21/2021 Patient examined this morning at the bedside. She denies chest pain or pressure. Denies shortness of breath. She remains on IV Lasix. Echocardiogram completed revealing ejection fraction 35-40%, mild MR, and mild TR. telemetry reveals atrial fibrillation with a heart rate around 100-110. 10/22/2021 Patient examined this morning. She is sitting up in the chair. She denies chest pain or pressure. She denies SOB. Telemetry reveals afib with heart rate around 100-100. Blood pressure stable. Creatinine increased to 1.63 today. 10/23/2021 Patient examined this morning at the bedside. She denies chest pain or pressure. Denies shortness of breath. Telemetry reveals afib with heart rate around 100- 100. Blood pressure stable. PHYSICAL EXAM: VITAL SIGNS: Reviewed. GENERAL: Well-developed in no acute distress. NECK: Supple. No JVD or thyromegaly LUNGS: Respirations even and unlabored. Lungs diminished to auscultation bilaterally. HEART: Irregular rate and rhythm. S1 and S2 heard. EXTREMITIES: Normal range of motion. No clubbing or cyanosis. Peripheral pulses intact. No lower extremity edema ASSESSMENT: 1. Paroxysmal atrial fibrillation with RVR 2. Acute on chronic systolic heart failure, EF 35% 3. Acute on chronic respiratory failure likely multifactorial 4. History of stroke 5. History of dementia 6. Cardiomyopathy, etiology unclear 7. Acute kidney injury PLAN: Continue current cardiac medications Continue with current rate control medications. Patient has a history of bradycardia and is already on a significant dose of metoprolol. Continue with same medications and this can be readdressed on an outpatient basis with Dr. Gold Patient may be discharged today from a cardiac standpoint Nurse practitioner note has been reviewed by physician. Signing provider agrees with the documented findings, assessment, and plan of care. Objective - Vital Signs Vital signs: Vital Signs Temp 97.6 F 10/23/21 04:00 Pulse 91 10/23/21 08:00 Resp 16 10/23/21 08:00 BP 113/78 10/23/21 08:00 Pulse Ox 95 10/23/21 08:00 Intake & Output 10/22/21 10/23/21 10/23/21 18:59 06:59 18:59 Intake Total 460 237 Output Total 200 125 Balance 260 112 Weight 67 kg 67 kg Intake: Oral 460 237 Output: Urine 200 125 Other: Voiding Method Diaper Diaper Diaper External Catheter External Catheter External Catheter # Bowel Movements 1 - Labs CBC & Chem 7: 10/17/21 09:18 10/22/21 08:17
[2021-10-23 11:57] LABS: Potassium 3.6 mmol/L (3.5-5.1)
[2021-10-23 12:18] VITALS: BP 91/66; PULSE 104
--- NOTE | 2021-10-23 13:33 | P.PN ---
Progress Note - Text Progress Note Date: 10/22/21 Chief Complaint: Chest pain History of presenting complaint This is a pleasant 80-year-old patient, Dr. Walter, with a known history of CVA with left-sided weakness, dementia, hypertension, hyperlipidemia, COPD, obstructive sleep apnea and history of breast cancer status post chemo and radiation, depression and previous history of smoking who is currently living at [facility] Because of significant cognitive impairment patient unable to give much of a history. Per the EMS run sheet patient is complaining of chest in and pressure midsternum not radiating this morning. The staff given her on nitro sublingual and the pain subsided. EKG showed the heart rate of 110. Care patient's heart rate is around 140. Found to be in possible flutter/atrial tachycardia. Started on a Cardizem drip. Patient does feel tired. Can only answer simple questions. Currently denies any chest pain. Admitted with what appeared to be atrial tachycardia/atrial fibrillation with a rapid rate/atrial flutter. Started on a Cardizem drip. CHF exacerbation. On IV Lasix October 18: Laying in bed. Tired. Heart rate just above 100. Cardizem drip. Awaiting cardiology input. October 19: Atrial fibrillation remains uncontrolled. On by mouth amiodarone. Cardizem drip at 5 mg. Lopressor increased to 150 mg twice a day. Short of breath. IV Lasix October 20: Atrial fibrillation better controlled. Patient of Cardizem drip. By mouth Lopressor, Cordarone. On IV Lasix. Breathing slowly improving. October 21: Remains in atrial fibrillation heart rate around 110. Eating fair. Breathing better. On by mouth Lasix. October 22: Increase in creatinine. Oral intake fair. Discussed at length with the patient and daughter at the bedside. Pending authorization. Care was discussed. Cor status is DO NOT RESUSCITATE. Current medications reviewed Past medical history to include: CVA with left-sided weakness, dementia, hypertension, hyperlipidemia, COPD, obstructive sleep apnea, history of breast cancer history chemoradiation, depression, atrial flutter, Social history: At [facility]. Patient smoking about a pack a day for over 60 years. No alcohol Family history: 2 sisters had breast cancer. One sister had ovarian cancer Physical examination: VITAL SIGNS: 97.5, 96, 24, 126/80, 98% on 2 L GENERAL: Propped up in bed, awake, eating EYES: Pupils equal. Conjunctiva normal. HEENT: External appearance of nose and ears normal, oral cavity grossly normal. NECK: JVD not raised; masses not palpable. HEART: Heart sounds irregular no edema. LUNGS: Respiratory rate increased; basal crackles ABDOMEN: Soft, nontender, liver spleen not palpable, no masses palpable. PSYCH: Patient knows her name, does not know why she is a here. MUSCULOSKELETAL:No Clubbing/cyanosis;muscles-grossly intact, evidence of OA NEUROLOGICAL: Cranial nerves grossly intact; no facial asymmetry, chronic left- sided weakness Investigations: Partial : Potassium 3.7 BUN 26 creatinine 1.63 October 21: Potassium 3.2 creatinine 1.28 White count 9.2 hemoglobin 15.5 platelets 255 potassium 4.2 creatinine 1.03 EKG tracing personally reviewed by me-possible atrial tachycardia with a rate of 135 Chest x-ray film personally reviewed by me-iván schwartz. Venous prominence. Small pleural effusion Assessment and plan: - Persistent atrial fibrillation with a rapid ventricular rate up to 135 on presentation., Heart rate now down 100 210 IV Cardizem drip-discontinued. Lopressor 150 mg twice a day.. Cordarone 200 mg daily. -Acute congestive heart exacerbation with the contribution from uncontrolled A. fib: Better IV Lasix 40 mg every 12. Lasix changed over to by mouth - left hemiparesis from prior CVA -Essential hypertension Lopressor 1 mg twice a day -Hyperlipidemia Lipitor -Obstructive sleep apnea- uses BiPAP -COPD in a current smoker Follow clinically -Chronic gait dysfunction Uses walker -Depression On Wellbutrin XL -Chronic insomnia from medical conditions Melatonin. - severe cognitive impairment, likely from late onset Alzheimer's dementia -Acute kidney injury prerenal from Lasix Hold dose of Lasix. Recheck labs Lopressor 150 mg twice a day. By mouth Lasix. Repeat BMP in the morning. Chest x-ray better.. Pending authorization for rehab. Total time spent today about 40 minutes with over 25 minutes of discussion
--- NOTE | 2021-10-23 13:37 | P.DS ---
Providers Date of admission: 10/17/21 12:16 Expected date of discharge: 10/23/21 Attending physician: Junaid Rojas Consults: 10/17/21 12:16 Consult Physician Urgent Consulting Provider: [facility] Consult Reason/Comments: A flutter with rapid ventricular response Do you want consulting provider notified?: Yes [facility]: Chief Complaint: Chest pain History of presenting complaint This is a pleasant 80-year-old patient, Dr. Walter, with a known history of CVA with left-sided weakness, dementia, hypertension, hyperlipidemia, COPD, obstructive sleep apnea and history of breast cancer status post chemo and radiation, depression and previous history of smoking who is currently living at [facility] Because of significant cognitive impairment patient unable to give much of a history. Per the EMS run sheet patient is complaining of chest in and pressure midsternum not radiating this morning. The staff given her on nitro sublingual and the pain subsided. EKG showed the heart rate of 110. Care patient's heart rate is around 140. Found to be in possible flutter/atrial tachycardia. Started on a Cardizem drip. Patient does feel tired. Can only answer simple questions. Currently denies any chest pain. Admitted with what appeared to be atrial tachycardia/atrial fibrillation with a rapid rate/atrial flutter. Started on a Cardizem drip. CHF exacerbation. On IV Lasix. Medication adjusted. Heart rate came down. Just above 100. Care was discussed with patient's daughter at length. Prognosis guarded. CODE STATUS DO NOT RESUSCITATE. Eating pured diet. Breathing comfortable. October 23: Creatinine had gone up to 1.63 with dialysis. Now coming down. Disc harge Lasix every other day. Past medical history to include: CVA with left-sided weakness, dementia, hypertension, hyperlipidemia, COPD, obstructive sleep apnea, history of breast cancer history chemoradiation, depression, atrial flutter, Social history: At [facility]. Patient smoking about a pack a day for over 60 years. No alcohol Family history: 2 sisters had breast cancer. One sister had ovarian cancer Physical examination: VITAL SIGNS: Afebrile, 91, 16, 113/78, 95% room air GENERAL: Propped up in chair, awake, EYES: Pupils equal. Conjunctiva normal. HEENT: External appearance of nose and ears normal, oral cavity grossly normal. NECK: JVD not raised; masses not palpable. HEART: Heart sounds irregular no edema. LUNGS: Respiratory rate normal; decreased breath sounds ABDOMEN: Soft, nontender, liver spleen not palpable, no masses palpable. PSYCH: Patient knows her name, does not know why she is herel. MUSCULOSKELETAL:No Clubbing/cyanosis;muscles-grossly intact, evidence of OA NEUROLOGICAL: Cranial nerves grossly intact; no facial asymmetry, chronic left- sided weakness Investigations: October 23: Creatinine 1.39 White count 9.2 hemoglobin 15.5 platelets 255 potassium 4.2 creatinine 1.03 EKG tracing personally reviewed by me-possible atrial tachycardia with a rate of 135 Chest x-ray film personally reviewed by me-iván schwartz. Venous prominence. Small pleural effusion Assessment and plan: - Persistent atrial fibrillation with a rapid ventricular rate up to 135 on presentation., Heart rate now down 100 IV Cardizem drip-discontinued. Lopressor 150 mg twice a day.. Cordarone 200 mg daily. -Acute congestive heart exacerbation with the contribution from uncontrolled A. fib: Better IV Lasix 40 mg every 12. Lasix changed 40 mg by mouth alternate day - left hemiparesis from prior CVA -Essential hypertension Lopressor 150 mg twice a day -Hyperlipidemia Lipitor -Obstructive sleep apnea- uses BiPAP -COPD in a current smoker Follow clinically -Chronic gait dysfunction Uses walker -Depression On Wellbutrin XL -Chronic insomnia from medical conditions Melatonin. - severe cognitive impairment, likely from late onset Alzheimer's dementia -DO NOT RESUSCITATE -Acute kidney injury, prerenal from diuresis Lasix changed to alternate day Disposition: [facility] on Plan - Discharge Summary Discharge Rx Participant: No New Discharge Prescriptions: New Aspirin 81 mg PO DAILY #90 tab Clopidogrel Bisulfate [Plavix] 75 mg PO DAILY #90 tab Metoprolol Tartrate [Lopressor] 150 mg PO BID #60 tab Furosemide [Lasix] 40 mg PO Q48H #30 tab Continue Multivitamins, Thera [Multivitamin (formulary)] 1 tab PO DAILY Atenolol [Tenormin] 50 mg PO DAILY@0800,1600 Glucosamine HCl/Chondroitin Haines [Glucosamine-Chondroitin Cap] 1 cap PO HS Fluticasone Propionate [Flovent Diskus] 1 puff INHALATION RT-BID Pyridoxine [Vitamin B-6] 50 mg PO DAILY #30 tab Amiodarone [Cordarone] 200 mg PO BID buPROPion [Wellbutrin] 75 mg PO DAILY Healthshake 1 dose PO TID-W/MEALS Atorvastatin [Lipitor] 20 mg PO HS Melatonin 3 mg PO HS Famotidine [Pepcid] 20 mg PO DAILY Apixaban [Eliquis] 2.5 mg PO BID@0800,1600 bisacodyL [Dulcolax] 10 mg RECTAL DAILY PRN PRN Reason: Constipation Na Phos,M-B/Na Phos,Di-Ba [Fleet Adult] 133 ml RECTAL DAILY PRN PRN Reason: Constipation Cefuroxime [Ceftin] 250 mg PO BID Magnesium Hydroxide [Milk of Magnesia] 2,400 mg PO DAILY PRN PRN Reason: Constipation Discontinued atenoloL [Tenormin] 25 mg PO DAILY@0800 Discharge Medication List Multivitamins, Thera [Multivitamin (formulary)] 1 tab PO DAILY 02/12/20 [History] Atorvastatin [Lipitor] 20 mg PO HS 02/23/21 [History] Apixaban [Eliquis] 2.5 mg PO BID@0800,1600 03/01/21 [History] Atenolol [Tenormin] 50 mg PO DAILY@0800,1600 03/01/21 [History] Famotidine [Pepcid] 20 mg PO DAILY 03/01/21 [History] Fluticasone Propionate [Flovent Diskus] 1 puff INHALATION RT-BID 03/01/21 [History] Glucosamine HCl/Chondroitin Haines [Glucosamine-Chondroitin Cap] 1 cap PO HS 03/01/21 [History] Melatonin 3 mg PO HS 03/01/21 [History] Pyridoxine [Vitamin B-6] 50 mg PO DAILY #30 tab 03/06/21 [Rx] Amiodarone [Cordarone] 200 mg PO BID 10/17/21 [History] Cefuroxime [Ceftin] 250 mg PO BID 10/17/21 [History] Healthshake 1 dose PO TID-W/MEALS 10/17/21 [History] Magnesium Hydroxide [Milk of Magnesia] 2,400 mg PO DAILY PRN 10/17/21 [History] Na Phos,M-B/Na Phos,Di-Ba [Fleet Adult] 133 ml RECTAL DAILY PRN 10/17/21 [History] bisacodyL [Dulcolax] 10 mg RECTAL DAILY PRN 10/17/21 [History] buPROPion [Wellbutrin] 75 mg PO DAILY 10/17/21 [History] Aspirin 81 mg PO DAILY #90 tab 10/18/21 [Rx] Clopidogrel Bisulfate [Plavix] 75 mg PO DAILY #90 tab 10/18/21 [Rx] Furosemide [Lasix] 40 mg PO Q48H #30 tab 10/22/21 [Rx] Metoprolol Tartrate [Lopressor] 150 mg PO BID #60 tab 10/22/21 [Rx] Follow up Appointment(s)/Referral(s): cardiology, [Other] - 1 Week Viktor Walter DO [Primary Care Provider] - 1-2 days Discharge Disposition: TRANSFER TO SNF/ECF
== END 2021-10-23 12:45 | DRG 291 ==
LOC: EC 08:53 → 3SCARD 12:16
PROVIDERS: ADMIT Hospitalist; ATTEND Hospitalist
DX: I11.0 Hypertensive heart disease with heart failure (principal); I50.43 Acute on chronic combined systolic (congestive) and diastolic (congestive) heart failure; J96.20 Acute and chronic respiratory failure, unspecified whether with hypoxia or hypercapnia; I47.1 Supraventricular tachycardia; I48.19 Other persistent atrial fibrillation; I48.92 Unspecified atrial flutter; I69.354 Hemiplegia and hemiparesis following cerebral infarction affecting left non-dominant side; N17.9 Acute kidney failure, unspecified; E78.5 Hyperlipidemia, unspecified; G30.1 Alzheimer's disease with late onset; F02.80 Dementia in other diseases classified elsewhere, unspecified severity, without behavioral disturbance, psychotic disturbance, mood disturbance, and anxiety; F17.210 Nicotine dependence, cigarettes, uncomplicated; F32.A Depression, unspecified; F51.04 Psychophysiologic insomnia; G47.33 Obstructive sleep apnea (adult) (pediatric); I42.9 Cardiomyopathy, unspecified; J44.9 Chronic obstructive pulmonary disease, unspecified; R26.9 Unspecified abnormalities of gait and mobility; K59.00 Constipation, unspecified; Z66 Do not resuscitate; Z79.01 Long term (current) use of anticoagulants; Z79.02 Long term (current) use of antithrombotics/antiplatelets; Z79.51 Long term (current) use of inhaled steroids; Z79.82 Long term (current) use of aspirin; Z79.899 Other long term (current) drug therapy; Z80.3 Family history of malignant neoplasm of breast; Z80.41 Family history of malignant neoplasm of ovary; Z85.3 Personal history of malignant neoplasm of breast; Z90.49 Acquired absence of other specified parts of digestive tract; Z90.710 Acquired absence of both cervix and uterus; Z92.21 Personal history of antineoplastic chemotherapy; Z92.3 Personal history of irradiation; Z96.611 Presence of right artificial shoulder joint; Z96.612 Presence of left artificial shoulder joint; Z87.440 Personal history of urinary (tract) infections
CPT/HCPCS: 36415; 71046; 80048; 80053; 80061; 83735; 83880; 84443; 84484; 85025; 85610; 85730; 93005; 93306; 94640; 96374; 96376; 99285

== ENCOUNTER 2022-12-28 06:20 | Emergency (ER) | payer MEDICARE, OTHER ==
[2022-12-28] MEDS ORDERED: LIDOCAINE/EPINEPHR/TETRACAINE 5 ML BOTTLE TOPICAL ONE (06:26)
--- NOTE | 2022-12-28 06:27 | ED ---
Fall HPI - General Source: patient, EMS, RN notes reviewed Mode of arrival: EMS Limitations: no limitations - History of Present Illness MD Complaint: fall Fall From: standing Place Fall Occurred: home Loss of Consciousness: none Location: head, face, eyes <Shabnam Mcgarry - Last Filed: 12/28/22 07:41> <Rahul Bower - Last Filed: 12/28/22 07:54> - General Chief Complaint: Fall Stated Complaint: Fall Time Seen by Provider: 12/28/22 06:26 - History of Present Illness Initial Comments: This is an 82-year-old female who presents to the emergency department for a fall. She is a resident at [facility] and states that she was sitting in her wheelchair and she wanted to get up to get a book. She stood up too quickly, started to feel dizzy, and then fell forward. This has happened to her in the past. She did not sustain any loss of consciousness. When EMS arrived, they found her face down on the ground and staff was trying to prevent her from moving. She is on Eliquis for atrial fibrillation. She has minor pain to the forehead where she sustained an injury, but otherwise denies any pain. Denies any chest pain or shortness of breath. Not currently sprinting any dizziness. Tetanus vaccine is up-to-date. Denies any fevers, chills, sore throat, cough, dyspnea, chest pain, palpitations, abdominal pain, nausea, vomiting, diarrhea, or back pain. (Shabnam Mcgarry) - Related Data Home Medications Medication Instructions Recorded Confirmed Multivitamins, Thera [Multivitamin 1 tab PO DAILY 02/12/20 10/17/21 (formulary)] Atorvastatin [Lipitor] 20 mg PO HS 02/23/21 10/17/21 Apixaban [Eliquis] 2.5 mg PO BID@0800,1600 03/01/21 10/17/21 Famotidine [Pepcid] 20 mg PO DAILY 03/01/21 10/17/21 Fluticasone Propionate [Flovent 1 puff INHALATION RT-BID 03/01/21 10/17/21 Diskus] Glucosamine HCl/Chondroitin Haines 1 cap PO HS 03/01/21 10/17/21 [Glucosamine-Chondroitin Cap] Melatonin 3 mg PO HS 03/01/21 10/17/21 atenoloL [Tenormin] 50 mg PO DAILY@0800,1600 03/01/21 10/17/21 Amiodarone [Cordarone] 200 mg PO BID 10/17/21 10/17/21 Cefuroxime [Ceftin] 250 mg PO BID 10/17/21 10/17/21 Healthshake 1 dose PO TID-W/MEALS 10/17/21 10/17/21 Magnesium Hydroxide [Milk of 2,400 mg PO DAILY PRN 10/17/21 10/17/21 Magnesia] Na Phos,M-B/Na Phos,Di-Ba [Fleet 133 ml RECTAL DAILY PRN 10/17/21 10/17/21 Adult] bisacodyL [Dulcolax] 10 mg RECTAL DAILY PRN 10/17/21 10/17/21 buPROPion [Wellbutrin] 75 mg PO DAILY 10/17/21 10/17/21 Previous Rx's Medication Instructions Recorded Pyridoxine [Vitamin B-6] 50 mg PO DAILY #30 tab 03/06/21 Aspirin 81 mg PO DAILY #90 tab 10/18/21 Clopidogrel Bisulfate [Plavix] 75 mg PO DAILY #90 tab 10/18/21 Furosemide [Lasix] 40 mg PO Q48H #30 tab 10/22/21 Metoprolol Tartrate [Lopressor] 150 mg PO BID #60 tab 10/22/21 Allergies Allergy/AdvReac Type Severity Reaction Status Date / Time No Known Allergies Allergy Verified 10/17/21 09:31 Review of Systems ROS Other: All systems not noted in ROS Statement are negative. <Shabnam Mcgarry - Last Filed: 12/28/22 07:41> ROS Other: All systems not noted in ROS Statement are negative. <Rahul Bower - Last Filed: 12/28/22 07:54> ROS Statement: Those systems with pertinent positive or pertinent negative responses have been documented in the HPI. Past Medical History Past Medical History: Cancer, COPD, CVA/TIA, Dementia, Hyperlipidemia, Hypert ension, Osteoarthritis (OA), Renal Disease, Sleep Apnea/CPAP/BIPAP Additional Past Medical History / Comment(s): Hx breast ca x2 left breast- radiation and chemo 2003 & 2008, bi pap machine , hx of CVA with left side weakness, DJD, Recent hospitalization for colitis, UTI & Renal failure , tachycardia & atrial flutter. , hx falls., incontinent .,up with assistance- gait unsteady, speech clear, feeds self- occasional cough when eating, some confusion. ,resides at [facility], daughter has Durable POA. 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 left thumb surgery Past Anesthesia/Blood Transfusion Reactions: No Reported Reaction Additional Past Anesthesia/Blood Transfusion Reaction / Comment(s): NO PROBLEMS WITH ANESTHESIA PER DAUGHTER KIERAN & HERNANDEZ. Past Psychological History: Depression Smoking Status: Current every day smoker Past Alcohol Use History: None Reported Past Drug Use History: None Reported - Past Family History Sister(s) Family Medical History: Cancer Additional Family Medical History / Comment(s): 2 sisters had breast ca, one sister had ovarian ca Daughter(s) Family Medical History: Cancer Additional Family Medical History / Comment(s): breast CA <Shabnam Mcgarry - Last Filed: 12/28/22 07:41> General Exam Limitations: no limitations General appearance: alert, in no apparent distress Head exam: Present: other (Large hematoma superior to the left eye with an overlying 2 cm horizontal laceration and active bleeding. The left eye is swollen shut.) Respiratory exam: Present: normal lung sounds bilaterally. Absent: respiratory distress, wheezes, rales, rhonchi, stridor Cardiovascular Exam: Present: regular rate, normal rhythm, normal heart sounds. Absent: systolic murmur, diastolic murmur, rubs, gallop, clicks Neurological exam: Present: alert, oriented X3, CN II-XII intact Expanded Eye Response: (4) open spontaneously Motor Response: (6) obeys commands Verbal Response: (5) oriented Psychiatric exam: Present: normal affect, normal mood <Shabnam Mcgarry - Last Filed: 12/28/22 07:41> Course Vital Signs 12/28/22 12/28/22 06:21 06:53 Temperature 98.4 F Pulse Rate 68 67 Respiratory 16 18 Rate Blood Pressure 186/98 175/100 O2 Sat by Pulse 97 95 Oximetry Medical Decision Making - Lab Data Result diagrams: 12/28/22 07:00 12/28/22 07:00 - Radiology Data Radiology results: report reviewed, image reviewed <Shabnam Mcgarry - Last Filed: 12/28/22 07:41> - Lab Data Result diagrams: 12/28/22 07:00 12/28/22 07:00 <Rauhl Bower - Last Filed: 12/28/22 07:54> - Medical Decision Making This is an 82-year-old female who presents to the emergency department for a fall. Was pt. sent in by a medical professional or institution? @ -[facility] Did you speak to anyone other than the patient for history? @ -EMS provided all of the history, which the patient again reiterated. Did you review nursing and triage notes? @ -Yes, and I agree, it is accurate with regards to the patient's symptoms. Were old charts reviewed? @ -No Differential Diagnosis? @ -Differential Diagnosis Head Injury: Contusion, hematoma, intracranial hemorrhage, skull fracture, whiplash, concussion, this is not meant to be an all-inclusive list. EKG interpreted by me (3pts min.)? @ -EKG interpreted by me demonstrating the following: Junctional bradycardia. Ventricular rate 56 beats per minute, SC interval 117 ms, QRS duration 114 ms, QTC 459 ms. X-rays interpreted by me (1pt min.)? @ -Chest x-ray and x-ray of the pelvis obtained. My interpretation identifies no acute fractures or dislocations. CT interpreted by me (1pt min.)? @ -Computed tomography scan of the brain/C-spine and facial bones obtained. My interpretation reveals a left-sided subarachnoid, subdural, and intraparenchymal hemorrhage. U/S interpreted by me (1pt. min.)? @ -Not obtained What testing was considered but not performed? (CT, X-rays, U/S, labs)? Why? @ -None What meds were considered but not given? Why? @ -None Did you discuss the management of the patient with other professionals? @ -Yes, Dr. Bower spoke with Dr. Nieto at [facility] who accepts the patient for transfer. Did you reconcile home meds? @ -No Was smoking cessation discussed for >3mins.? @ -No Was critical care preformed (if so, how long)? @ -Yes, 35 minutes Were there social determinants of health that impacted care today? How? (Homelessness, low income, unemployed, alcoholism, drug addiction, transportation, low edu. Level, literacy, decrease access to med. care, intermediate, rehab)? @ -No Was there de-escalation of care discussed even if they declined? (Discuss DNR or withdrawal of care, Hospice)? @ -No What co-morbidities impacted this encounter? (DM, HTN, Smoking, COPD, CAD, Cancer, CVA, Hep., AIDS, mental health diagnosis, sleep apnea, morbid obesity)? @ -Atrial fibrillation, dementia, HTN, OA Was patient admitted / discharged? @ -Transferred to [facility]. Computed tomography scan of the brain/C- spine and computed tomography scan of the facial bones obtained. Findings reveal a left subarachnoid, subdural, and intraparenchymal hemorrhage without any shift. In light of these findings, level II trauma was activated. She does continue to remain normal mentation, as she is A&O 4 with a GCS of 15. Patient is on Eliquis and Kcentra was ordered. Trauma labs and XR of the chest and pelvis were ordered as well. Lab work was unremarkable and x-rays revealed no acute injury. LET was applied to the laceration to control the bleeding and a compression dressing was applied afterwards. Patient accepted as a transfer to [facility]. Dr. Nieto, trauma surgeon, accepted the patient for transf er. Head of bed elevated to 30. Patient does have a history of hypertension and has not yet taken her medications morning. She was subsequently given 20 mg of labetalol and started on a nicardipine drip at 5mg/hr. Initial dose of tranexamic acid given per [facility]'s request. Undiagnosed new problem with uncertain prognosis? @ -None Drug Therapy requiring intensive monitoring for toxicity (Heparin, Nitro, Insulin, Cardizem)? @ -None Were any procedures done? @ -None Diagnosis/symptom? @ -Subarachnoid hemorrhage, subdural hemorrhage, intraparenchymal hemorrhage, Fall Acute, or Chronic, or Acute on Chronic? @ -Acute Uncomplicated (without systemic symptoms) or Complicated (systemic symptoms)? @ -Complicated Side effects of treatment? @ -None Exacerbation, Progression, or Severe Exacerbation] @ -Not applicable Poses a threat to life or bodily function? @ -Yes This case was discussed in detail with the attending ED physician, Dr. Bower. Presentation, findings, and treatment plan discussed in detail as well. (Shabnam Mcgarry) Patient evaluated by mid-level provider for fall from standing on blood thinners. Initially not an activated trauma as the patient was not a fall above ground-level despite being over the age of 62 and on blood thinners with normal mentation. Has a large hematoma over the left eye. No loss of consciousness. At her baseline mental status. Is complaining of facial pain at the site of a large hematoma. Compressive dressing was placed. CT brain and facial bones revealed a left-sided subdural, subarachnoid, intraparenchymal hemorrhage. I was notified by computed tomography scan as well as radiologist regarding this. Level II trauma was activated. ATLS protocol will be followed. I talked with Dr. Robert hand almond blancher trauma surgery who was in agreement the plan for transfer. Kcentra and TXA both ordered for the patient. We contacted [facility] for transfer. I spoke with on-call trauma surgeon Dr. Francisco. He was in agreement with the plan and recommended the TXA. which was given. Patient is becoming more hypertensive at this time with systolics in the 190s and we will apply a IV push of 20mg of labetalol and start the patient on a nicardipine drip. Goal systolic pressures less than 160. Trauma labs still pending at this time. Chest x-ray and pelvis x-ray showed no obvious acute injury. Compressive dressing placed over the patient's hematoma and laceration. Cervical collar will be kept in place and C-spine precautions maintained. Mental status remains A&O x4 and GCS of 15. I spoke with the emergency physician at [facility] Dr. Uriarte and provided report. He was in agreement with the plan. Patient will be transferred in serious condition to [facility] for further management of her intracranial bleed. C-spine precautions will be maintained. Diagnosis/symptom? @ -Fall from standing on thinners, subarachnoid hemorrhage, intraparenchymal hemorrhage, subdural hemorrhage, facial hematoma, facial laceration. Acute, or Chronic, or Acute on Chronic? @ -Acute Uncomplicated (without systemic symptoms) or Complicated (systemic symptoms)? @ -complicated Side effects of treatment? @ -none Exacerbation, Progression, or Severe Exacerbation] @ -no Poses a threat to life or bodily function? @ -Yes Was critical care preformed (if so, how long)? @ -Yes, 35 minutes. (Rahul Bower) - Lab Data Lab Results 12/28/22 12/28/22 12/28/22 Range/Units 07:00 07:00 07:00 WBC 9.5 (3.8-10.6) k/uL RBC 4.63 (3.80-5.40) m/uL Hgb 14.5 (11.4-16.0) gm/dL Hct 40.7 (34.0-46.0) % MCV 87.9 (80.0-100.0) fL MCH 31.4 (25.0-35.0) pg MCHC 35.7 (31.0-37.0) g/dL RDW 13.2 (11.5-15.5) % Plt Count 297 (150-450) k/uL MPV 7.9 Neutrophils % 70 % Lymphocytes % 17 % Monocytes % 7 % Eosinophils % 4 % Basophils % 0 % Neutrophils # 6.7 (1.3-7.7) k/uL Lymphocytes # 1.6 (1.0-4.8) k/uL Monocytes # 0.7 (0-1.0) k/uL Eosinophils # 0.4 (0-0.7) k/uL Basophils # 0.0 (0-0.2) k/uL PT 10.6 (9.0-12.0) sec INR 1.0 (<1.2) APTT 24.6 (22.0-30.0) sec Sodium 140 (137-145) mmol/L Potassium 3.9 (3.5-5.1) mmol/L Chloride 102 (98-107) mmol/L Carbon Dioxide 32 H (22-30) mmol/L Anion Gap 6 mmol/L BUN 24 H (7-17) mg/dL Creatinine 1.11 H (0.52-1.04) mg/dL Est GFR (CKD-EPI)AfAm 54 (>60 ml/min/1.73 sqM) Est GFR (CKD-EPI)NonAf 47 (>60 ml/min/1.73 sqM) Glucose 117 H (74-99) mg/dL POC Glucose (mg/dL) (70-110) mg/dL POC Glu Neurosurgical Nurse ID Calcium 9.3 (8.4-10.2) mg/dL Total Bilirubin 0.7 (0.2-1.3) mg/dL AST 27 (14-36) U/L ALT 21 (4-34) U/L Alkaline Phosphatase 106 (38-126) U/L Troponin I (0.000-0.034) ng/mL Total Protein 6.7 (6.3-8.2) g/dL Albumin 3.6 (3.5-5.0) g/dL Serum Alcohol <10 mg/dL Blood Type Recheck Bld Type Recheck Status 12/28/22 12/28/22 12/28/22 Range/Units 07:00 07:00 07:39 WBC (3.8-10.6) k/uL RBC (3.80-5.40) m/uL Hgb (11.4-16.0) gm/dL Hct (34.0-46.0) % MCV (80.0-100.0) fL MCH (25.0-35.0) pg MCHC (31.0-37.0) g/dL RDW (11.5-15.5) % Plt Count (150-450) k/uL MPV Neutrophils % % Lymphocytes % % Monocytes % % Eosinophils % % Basophils % % Neutrophils # (1.3-7.7) k/uL Lymphocytes # (1.0-4.8) k/uL Monocytes # (0-1.0) k/uL Eosinophils # (0-0.7) k/uL Basophils # (0-0.2) k/uL PT (9.0-12.0) sec INR (<1.2) APTT (22.0-30.0) sec Sodium (137-145) mmol/L Potassium (3.5-5.1) mmol/L Chloride (98-107) mmol/L Carbon Dioxide (22-30) mmol/L Anion Gap mmol/L BUN (7-17) mg/dL Creatinine (0.52-1.04) mg/dL Est GFR (CKD-EPI)AfAm (>60 ml/min/1.73 sqM) Est GFR (CKD-EPI)NonAf (>60 ml/min/1.73 sqM) Glucose (74-99) mg/dL POC Glucose (mg/dL) 131 H (70-110) mg/dL POC Glu Neurosurgical Nurse Eduarda Weinstein Calcium (8.4-10.2) mg/dL Total Bilirubin (0.2-1.3) mg/dL AST (14-36) U/L ALT (4-34) U/L Alkaline Phosphatase (38-126) U/L Troponin I <0.012 (0.000-0.034) ng/mL Total Protein (6.3-8.2) g/dL Albumin (3.5-5.0) g/dL Serum Alcohol mg/dL Blood Type Recheck No Previous Record Bld Type Recheck Status CABO Indicated Disposition - Out of Hospital Transfer - Req. Specs Out of Hospital Transfer - Requested Specifics: Other Emergency Center ([facility]) <Shabnam Mcgarry - Last Filed: 12/28/22 07:41> Time of Disposition: 07:25 <Rahul Bower - Last Filed: 12/28/22 07:54> Clinical Impression: Subarachnoid hemorrhage, Subdural hemorrhage, Intraparenchymal hemorrhage of brain, Fall Disposition: OTHER INSTITUTION NOT DEFINED Condition: Serious Referrals: Viktor Walter DO [Primary Care Provider] - 1-2 days
[2022-12-28] MEDS ORDERED: Kcentra PER PHARMACY 1 EACH MISC MISCELLANE PRN (06:52)
[2022-12-28 07:00] VITALS: RESP 18
[2022-12-28] MEDS ORDERED: HUMAN PROTHROMBIN COMPLX IV ONE (07:00)
--- NOTE | 2022-12-28 07:03 | CT ---
EXAMINATION TYPE: CT brain cspine wo con DATE OF EXAM: 12/28/2022 COMPARISON: Prior trauma CT February 23, 2021 HISTORY: fall. pt on blood thinners with headache and neck pain CT DLP: 1187 mGycm. Automated Exposure Control for Dose Reduction was Utilized. TECHNIQUE: CT scan of the head and cervical spine are performed without contrast. FINDINGS: There is large left frontal acute scalp hematoma extending over the left orbit and zygoma. There is acute left extra-axial frontal hemorrhage measuring up to 11 mm in thickness axial image 42. There is additional acute left frontal subarachnoid hemorrhage axial image 44 and focal 7 mm intrapa renchymal hemorrhage axial image 46. No midline shift. Background mild to moderate ventricular and greenfield lcal prominence. Background moderate to severe low-attenuation in the deep and periventricular white matter. The calvarium is intact. Scleral calcification bilateral globes is redemonstrated. The parana nader sinuses are clear. Cervical spine is visualized in its entirety from C1 through upper thoracic levels and redemonstrates levoconvex scoliosis centered in the upper thoracic spine without evidence of acute fracture or disl ocation. Prevertebral soft tissue appears within normal limits. The C1-C2 articulation is within no rmal limits on the coronal images. Vertebral body heights are maintained. Moderate to severe disc sp lea narrowing C5-C6 level is redemonstrated. Mild to moderate disc space narrowing C6-C7 level is red emonstrated. Posterior spur disc complex effacing the anterior thecal sac at C5-C6 level sagittal chiqui ge 55. Multinodular thyroid gland redemonstrated. Axial images show multilevel uncovertebral facet de generative changes. There is emphysematous change and visualized upper lungs without pneumothorax. IMPRESSION: 1. There is no acute fracture or dislocation evident in the cervical spine. 2. There is large left frontal acute scalp hematoma with small left extra-axial presumed acute subdur al hemorrhage along with small amount of left acute intraparenchymal and subarachnoid hemorrhage. The re is no midline shift. Case discussed with the ordering ER physician assistant teacher primary via telephone at time of dictation.
[2022-12-28] MEDS ORDERED: TRANEXAMIC ACID IN NACL,ISO-OS 1,000 MG in SALINE 1 100ML.BAG IV STA (07:06)
[2022-12-28] MEDS ORDERED: LABETALOL 5 MG/ML VIAL MDV IVP STA (07:07)
--- NOTE | 2022-12-28 07:10 | CT ---
EXAMINATION TYPE: CT facial bones wo con DATE OF EXAM: 12/28/2022 COMPARISON: Same day CT brain. HISTORY: fall. pt on blood thinners CT DLP: 1187 mGycm Automated exposure control for dose reduction was used. FINDINGS: The mandible is intact. The temporomandibular joints are maintained bilaterally. The zygomatic arches are intact. The orbital floors and stewart are intact. The globes are intact bilaterally. There is scl eral calcification bilateral globes seen. Intraconal fat is preserved bilaterally. There is large left facial multifocal soft tissue hematoma over the left globe and zygoma extending s uperiorly. The maxilla is intact. The pterygoid plates are intact. There is some dependent fluid in t he right sphenoid sinus Otherwise paranasal sinuses are clear. Vascular calcification distal internal carotid arteries is appreciated. The nasal bones are intact. IMPRESSION: No acute displaced facial bone fracture.
[2022-12-28 07:12] LABS: Basophils % (A) 0 %; Eosinophils # (A) 0.4 k/uL (0-0.7); Eosinophils % (A) 4 %; HCT 40.7 % (34.0-46.0); HGB 14.5 gm/dL (11.4-16.0); Lymphocytes # (A) 1.6 k/uL (1.0-4.8); Lymphocytes % (A) 17 %; MCH 31.4 pg (25.0-35.0); MCHC 35.7 g/dL (31.0-37.0); MCV 87.9 fL (80.0-100.0); Mean Platelet Volume 7.9; Monocytes # (A) 0.7 k/uL (0-1.0); Monocytes % (A) 7 %; Neutrophils # (A) 6.7 k/uL (1.3-7.7); Neutrophils % (A) 70 %; Platelet Count 297 k/uL (150-450); RBC 4.63 m/uL (3.80-5.40); RDW 13.2 % (11.5-15.5); WBC 9.5 k/uL (3.8-10.6)
[2022-12-28] MEDS ORDERED: HUMAN PROTHROMBIN COMPLX 500 UNIT/16 ML VIAL IV ONE (07:21)
--- NOTE | 2022-12-28 07:21 | XR ---
EXAMINATION TYPE: XR chest 1V portable DATE OF EXAM: 12/28/2022 COMPARISON: Chest x-ray October 21, 2021 HISTORY: Fall injury with pain TECHNIQUE: Single AP portable frontal supine view of the chest is obtained. FINDINGS: There is some chronic parenchymal change without suspicious focal air space opacity, pleur al effusion, or pneumothorax seen. The cardiac silhouette size is upper limits of normal. Surgical c hange to right shoulder is redemonstrated. IMPRESSION: No acute process.
--- NOTE | 2022-12-28 07:22 | XR ---
EXAMINATION TYPE: XR pelvis AP view DATE OF EXAM: 12/28/2022 CLINICAL HISTORY: Pain after injury. TECHNIQUE: A single AP view of the pelvis is obtained. COMPARISON: CT abdomen and pelvis March 03, 2021. FINDINGS: There is no acute fracture/dislocation evident in the pelvis. Mild to moderate narrowing a nd acetabular spurring of both hips is redemonstrated. Sacroiliac joints are preserved. Pubic symphy sis is intact. Left pelvic vascular calcification is incidentally noted. IMPRESSION: There is no acute fracture or dislocation in the pelvis.
[2022-12-28 07:24] LABS: ALT 21 U/L (4-34); AST 27 U/L (14-36); African American GFR (CKD) 54 (>60 ml/min/1.73 sqM); Albumin 3.6 g/dL (3.5-5.0); Alcohol <10 mg/dL; Alkaline Phosphatase 106 U/L (38-126); Anion Gap 6 mmol/L; Blood Urea Nitrogen 24 mg/dL (7-17); Calcium 9.3 mg/dL (8.4-10.2); Carbon Dioxide 32 mmol/L (22-30); Chloride 102 mmol/L (98-107); Glucose 117 mg/dL (74-99); Non-African American GFR(CKD) 47 (>60 ml/min/1.73 sqM); Partial Thromboplastin Time 24.6 sec (22.0-30.0); Potassium 3.9 mmol/L (3.5-5.1); Prothrombin Time 10.6 sec (9.0-12.0); Sodium 140 mmol/L (137-145); Total Bilirubin 0.7 mg/dL (0.2-1.3); Total Protein 6.7 g/dL (6.3-8.2)
[2022-12-28] MEDS ORDERED: niCARdipine 20 MG in SODIUM CHLORIDE 0.9% 192 ML IV SCH (07:30)
[2022-12-28] MEDS ORDERED: ONDANSETRON 4 MG/2 ML VIAL IVP STA (07:32)
[2022-12-28 07:41] LABS: Glucose,Whole Blood 131 mg/dL (70-110)
[2022-12-28 08:05] VITALS: BP 120/76; PULSE 49; TEMP 98.1
== END 2022-12-28 07:45 | disposition other institution (70) ==
LOC: EC 06:20
DX: S06.5XAA Traumatic subdural hemorrhage with loss of consciousness status unknown, initial encounter (principal); J44.9 Chronic obstructive pulmonary disease, unspecified; E78.5 Hyperlipidemia, unspecified; I10 Essential (primary) hypertension; M19.90 Unspecified osteoarthritis, unspecified site; Z86.73 Personal history of transient ischemic attack (TIA), and cerebral infarction without residual deficits; F32.A Depression, unspecified; F17.200 Nicotine dependence, unspecified, uncomplicated; Z79.01 Long term (current) use of anticoagulants; Z79.51 Long term (current) use of inhaled steroids; Z79.899 Other long term (current) drug therapy; W18.30XA Fall on same level, unspecified, initial encounter; Y92.009 Unspecified place in unspecified non-institutional (private) residence as the place of occurrence of the external cause
CPT/HCPCS: 36415; 93005; 86900; 86901; 80053; 84484; 85025; 85610; 85730; 86850; 80320; 72170; 71045; 72125; 70486; 70450; 99291; 96365; 96375 ×3; J2405; J7168

== ENCOUNTER → 2023-01-15 | Outpatient (CLI) | payer MEDICARE, OTHER ==
--- NOTE | 2023-01-15 12:25 | FL ---
EXAMINATION TYPE: FL barium swallow w video DATE OF EXAM: 01/15/2023 CLINICAL HISTORY: Dysphagia. TECHNIQUE: Deglutition study is performed utilizing honey and nectar thick liquid barium, barium thi ck applesauce. Total fluoroscopy time: 2 minutes 14 seconds. Total images: None. Real-time fluoroscopy support was provided to speech pathology. DOSE AREA PRODUCT (DAP) UGY*M,MGY*CM: 5. COMPARISON: None. FINDINGS: Swallow initiation was mildly delayed with bolus free spilling to the level of the vallecula with nec tar liquid. Subsequent dominic silent aspiration is noted. No penetration or aspiration with either hon ey thickened liquid or pudding consistency. Thin liquids and solids were not tested. Patient had deon mcnamara AP transit of bolus, delayed initiation. IMPRESSION: Dominic silent aspiration of nectar liquids. Please refer to speech therapist notes for further details if necessary.
== END | disposition home or self-care (01) ==
LOC: RADFLMAIN 08:09
PROVIDERS: ATTEND Family Medicine
DX: R13.10 Dysphagia, unspecified (principal)
CPT/HCPCS: 74230